=== PATIENT | male | born 1960 | race American Indian/Alaskan Native ===

== ENCOUNTER 2017-02-14 16:46 | Inpatient (IN) | payer MEDICAID ==
[2017-02-14 17:44] LABS: Hemoglobin 10.5 gm/dl (11.8-15.2); Mean Corpuscular HGB Conc 32 % (32-34); Mean Corpuscular Hemoglobin 27 pg (28-32); Mean Corpuscular Volume 85 fl (84-94); Platelet Count 262 K/mm3 (140-440); Red Blood Count 3.87 M/mm3 (3.65-5.03); Red Cell Distribution Width 16.7 % (13.2-15.2); White Blood Count 8.3 K/mm3 (4.5-11.0)
[2017-02-14 18:06] LABS: Albumin 3.4 g/dL (3.9-5); Albumin/Globulin Ratio 1.3 %; BUN/Creatinine Ratio 7.55; Bilirubin,Total 0.2 mg/dL (0.1-1.2); Calcium 9.3 mg/dL (8.4-10.2); Chloride 100.7 mmol/L (98-107)
[2017-02-14] MEDS ORDERED: APRESOLINE IV ONE (18:11)
[2017-02-14 18:29] LABS: Potassium 6.5 mmol/L (3.6-5.0)
[2017-02-14] MEDS ORDERED: D50W (25GM) IV ONE (18:31)
[2017-02-14] MEDS ORDERED: PROVENTIL IH ONE (18:31)
[2017-02-14] MEDS ORDERED: KIONEX PO ONE (18:31)
[2017-02-14] MEDS ORDERED: CALCIUM CHLORIDE IVP ONE (18:32)
--- NOTE | 2017-02-14 19:11 | Emergency Department Report ---
HPI - General Chief Complaint: High BP Time Seen by Provider: 02/14/17 17:48 - HPI HPI: This is a 56-year-old after medical male presents to the emergency department from a skilled nursing by EMS with the complaint of a possible clogged dialysis shunt, hypertension problems. The patient says that he is end-stage renal disease on Wednesday, and Wednesday. He says that he did receive dialysis on , 3 days ago, but also says that he was told dialysis shunt was clogged because they "had problems with it." He has a past medical history of asthma, diabetes, GERD, hypertension, end-stage renal disease on dialysis, seizures. He says that his primary care and nephrology is usually through the [facility]. He denies any chest pain or shortness of breath. He did not take anything and was not given anything for his symptoms prior to presentation. ED Past Medical Hx - Past Medical History Previous Medical History?: Yes Hx Hypertension: Yes Hx CVA: No Hx Heart Attack/AMI: No Hx Congestive Heart Failure: No Hx Diabetes: Yes Hx Deep Vein Thrombosis: No Hx GERD: Yes Hx Liver Disease: No Hx Renal Disease: Yes Hx of Cancer: No Hx Headaches / Migraines: No Hx Seizures: Yes (on meds) Hx Kidney Stones: Yes (ESRD) Hx Asthma: Yes Hx COPD: No Hx Dementia: No Hx HIV: No Additional medical history: Anemia - Surgical History Additional Surgical History: Left ABK , 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] - Social History Smoking Status: Current Some Day Smoker Substance Use Type: None - Medications Home Medications: Home Medications Medication Instructions Recorded Confirmed Last Taken Type Ascorbic Acid [Vitamin C] 500 mg PO BID 12/27/16 02/14/17 Unknown History AtorvaSTATin [Lipitor] 40 mg PO QHS 12/27/16 02/14/17 Unknown History Ferrous Sulfate [Feosol 325 MG tab] 325 mg PO BID 12/27/16 02/14/17 Unknown History Folic Acid [Folvite] 1 mg PO QDAY 12/27/16 02/14/17 Unknown History Insulin NPH, Human [NovoLIN N] 15 unit SQ QHS 12/27/16 02/14/17 Unknown History Mirtazapine 15 mg PO QHS 12/27/16 02/14/17 Unknown History Omeprazole Magnesium [PriLOSEC Otc] 20 mg PO QDAY 12/27/16 02/14/17 Unknown History Ondansetron [Zofran TAB] 4 mg PO Q4H PRN 12/27/16 02/14/17 Unknown History Sevelamer HCl [Renagel] 400 mg PO TIDWM 12/27/16 02/14/17 Unknown History Thiamine [Vitamin B-1] 100 mg PO QDAY 12/27/16 02/14/17 Unknown History Valsartan [Diovan] 40 mg PO QHS 12/27/16 02/14/17 Unknown History Vit B Cmplx 3/FA/Vit C/Biotin 1 each PO DAILY 12/27/16 02/14/17 Unknown History [Cheryl-Pricilla Rx Tablet] busPIRone [Buspar] 5 mg PO DAILY 12/27/16 02/14/17 Unknown History diphenhydrAMINE [Benadryl CAP] 25 mg PO DAILY PRN 12/27/16 02/14/17 Unknown History levETIRAcetam [Keppra TAB] 500 mg PO BID #60 tablet 01/11/17 02/14/17 Unknown Rx Pantoprazole [Protonix] 40 mg PO QDAY #30 tablet 02/04/17 02/14/17 Unknown Rx Acetaminophen 650 mg PO Q4H PRN 02/14/17 02/14/17 Unknown History Insulin Lispro [Humalog 100 12 units SQ AC 02/14/17 02/14/17 Unknown History UNITS/ML Kwikpen] Insulin Lispro [Humalog] 0 unit SQ BID 02/14/17 02/14/17 Unknown History ED Review of Systems ROS: Stated complaint: FISTULA BLOCKED Other details as noted in HPI Comment: All other systems reviewed and negative Constitutional: denies: chills, fever Eyes: denies: eye pain, eye discharge, vision change ENT: denies: ear pain, throat pain Respiratory: denies: cough, shortness of breath, wheezing Cardiovascular: denies: chest pain, palpitations Gastrointestinal: denies: abdominal pain, nausea, diarrhea Genitourinary: denies: urgency, dysuria Musculoskeletal: denies: back pain, joint swelling, arthralgia Skin: denies: rash, lesions Neurological: denies: headache, weakness, paresthesias Physical Exam - Physical Exam Vital Signs: Vital Signs 02/14/1702/14/17 17:06 17:43 Temperature 98.3 F Pulse Rate 87 Respiratory 24 24 Rate Blood Pressure 215/105 Blood Pressure 215/105 [Left] O2 Sat by Pulse 100 100 Oximetry Physical Exam: GENERAL: The patient is well-developed well-nourished. HEENT: Normocephalic. Atraumatic. Extraocular motions are intact. Patient has moist mucous membranes. NECK: Supple. Trachea is midline. CHEST/LUNGS: Clear to auscultation. There is no respiratory distress noted. HEART/CARDIOVASCULAR: Regular. There is no tachycardia. There is no gallop rub or murmur. ABDOMEN: Abdomen is soft, nontender. Patient has normal bowel sounds. There is no abdominal distention. SKIN: There is no rash. There is no edema. There is no diaphoresis. NEURO: The patient is awake, alert. The patient is cooperative. The patient has no focal neurologic deficits. The patient has normal speech. MUSCULOSKELETAL: There is no tenderness or deformity. Chronic left below knee amputation. There is no evidence of acute injury. There is a right upper extremity dialysis fistula that appears to have an audible hum and at least the proximal half has a palpable thrill. ED Course Vital Signs 02/14/17 06 17:06 17:43 Temperature 98.3 F Pulse Rate 87 Respiratory 24 24 Rate Blood Pressure 215/105 Blood Pressure 215/105 [Left] O2 Sat by Pulse 100 100 Oximetry - Consultations Consultation #1: Spoke with the community relations rep on-call, Dr. Merida, who agrees that the hyperkalemia can be treated medically and they will see the patient tomorrow for evaluation for dialysis. 02/14/17 19:22 Consultation #2: Spoke with the vascular surgeon on-call, Dr. العراقي, to make them aware of the patient's need for evaluation of a possible clogged dialysis fistula. 02/14/17 19:40 ED Medical Decision Making - Lab Data Result diagrams: 02/14/17 17:36 02/14/17 17:36 - EKG Data -: EKG Interpreted by [facility] EKG shows normal: sinus rhythm, axis (left axis deviation), intervals, QRS complexes, ST-T waves (T-wave inversions to aVL) Rate: normal - EKG Data When compared to previous EKG there are: previous EKG unavailable Interpretation: other (sinus rhythm, T-wave inversion to aVL, left axis deviation) - Medical Decision Making 56-year-old male presents to the emergency department with concern for clogged dialysis fistula that caused him to be unable to have dialysis yesterday. He has hypertensive issues and was found to have a hyperkalemia of 6.5. He was given the hyperkalemia cocktail including Kayexalate, insulin, glucose, albuterol and calcium. I spoke with nephrology who agreed that he could be treated medically tonight and they will assess him in the morning for dialysis. I also spoke with the vascular service so that they might be able to see the patient earlier than later tomorrow to evaluate the dialysis fistula so he can get dialysis at some point tomorrow. Patient was given hydralazine, then labetalol and his blood pressure came down to a more reasonable level. He has been accepted to the service of the admitting hospitalist, Dr. Lima. - Differential Diagnosis hyperkalemia, accelerated hypertension, CHF, Critical Care Time: No Critical care attestation.: If time is entered above; I have spent that time in minutes in the direct care of this critically ill patient, excluding procedure time. ED Disposition Clinical Impression: Accelerated hypertension, Hyperkalemia Dialysis AV fistula malfunction Qualifiers: Encounter type: initial encounter Qualified Code(s): T82.590A - Other mechanical complication of surgically created arteriovenous fistula, initial encounter Disposition: OP ADMITTED IP TO THIS HOSP Is pt being admited?: Yes Condition: Stable Instructions: Hypertension (ED) Referrals: PRIMARY CARE, [Primary Care Provider] - 3-5 Days
[2017-02-14] MEDS ORDERED: NORMODYNE IV ONE (19:36)
[2017-02-14] MEDS ORDERED: CALCIUM GLUCONATE 1,000 MG in NACL 0.9% 100 ML IV ONE (20:00)
[2017-02-14] MEDS ORDERED: TYLENOL PO PRN ×2 (22:39→22:45)
[2017-02-14] MEDS ORDERED: BENADRYL PO PRN (22:39)
[2017-02-14] MEDS ORDERED: ZOFRAN PO PRN (22:39)
--- NOTE | 2017-02-14 22:39 | Event Note ---
Date: 02/14/17 See H/p in reports HYPERKALEMIA AV SHUNT Malfunction ESRD HTN IDDM
[2017-02-14] MEDS ORDERED: DILAUDID IV PRN (22:45)
[2017-02-14] MEDS ORDERED: ZOFRAN IV PRN (22:45)
[2017-02-14] MEDS ORDERED: DULCOLAX PR PRN (22:45)
[2017-02-14] MEDS ORDERED: PERCOCET 5/325 PO PRN (22:45)
[2017-02-14] MEDS ORDERED: MILK OF MAGNESIA PO PRN (22:45)
[2017-02-14] MEDS ORDERED: NOVOLOG SUB-Q ONE ×2 (22:52→23:56)
[2017-02-14] MEDS ORDERED: HEPARIN ONE (23:22)
[2017-02-14] MEDS ORDERED: KEPPRA PO ONE (23:22)
[2017-02-14] MEDS: HEPARIN SUB-Q SCH (23:37)
[2017-02-14] MEDS: KEPPRA PO SCH (23:37)
[2017-02-15] MEDS ORDERED: APRESOLINE IV PRN ×2 (03:00→13:34)
[2017-02-15 05:59] LABS: Albumin 3.4 g/dL (3.9-5); Albumin/Globulin Ratio 1.3 %; BUN/Creatinine Ratio 7.23; Basophils % (Auto) 0.4 % (0.0-1.8); Bilirubin,Total 0.2 mg/dL (0.1-1.2); Calcium 9.3 mg/dL (8.4-10.2); Chloride 100.3 mmol/L (98-107); Eosinophils % (Auto) 2.5 % (0.0-4.3); Hematocrit 35.6 % (35.5-45.6); Mean Corpuscular HGB Conc 31 % (32-34); Mean Corpuscular Hemoglobin 27 pg (28-32); Mean Corpuscular Volume 86 fl (84-94); Platelet Count 282 K/mm3 (140-440); Potassium 5.6 mmol/L (3.6-5.0); Red Blood Count 4.12 M/mm3 (3.65-5.03); Red Cell Distribution Width 17.1 % (13.2-15.2); Total Protein 6.1 g/dL (6.3-8.2); White Blood Count 8.4 K/mm3 (4.5-11.0)
[2017-02-15] MEDS ORDERED: INSULIN LISPRO 12 UNIT SQ SCH (07:30)
[2017-02-15] MEDS: NOVOLOG SUB-Q SCH ×3 (08:58→16:30)
[2017-02-15] MEDS: KEPPRA PO SCH ×2 (09:00→22:31)
[2017-02-15] MEDS: VITAMIN B-1 PO SCH (09:00)
[2017-02-15] MEDS: RENVELA PO SCH ×3 (09:00→17:00)
[2017-02-15] MEDS: FEOSOL PO SCH ×2 (09:00→22:30)
[2017-02-15] MEDS: VITAMIN C PO SCH ×2 (09:01→22:31)
[2017-02-15] MEDS: HEPARIN SUB-Q SCH ×2 (09:01→22:33)
[2017-02-15] MEDS: PROTONIX PO SCH (09:01)
[2017-02-15] MEDS: BUSPAR PO SCH (09:01)
[2017-02-15] MEDS: FOLVITE PO SCH (09:01)
--- NOTE | 2017-02-15 09:49 | Admit Criteria Form ---
Admission Criteria Documentation: HYPONATREMIA; HYPERNATREMIA; HYPOKALEMIA; HYPERKALEMIA; HYPOCALCEMIA; HYPERCALCEMIA Clinical Indications for Inpatient Care (Place 'X' for any and all applicable criteria): Ongoing inpatient care may be indicated for ANY ONE of the following [G](1)(2)(3 )(5): [ ]I. Hyponatremia with ANY ONE of the following: [ ]a) Sodium less than 130 mEq/L (mmol/L) (new) (6)(22) [ ]b) Sodium less than 135 mEq/L (mmol/L) with ANY ONE of the following: [ ]i) Severe medical etiology requiring inpatient management (eg, heart failure, hypovolemia) [ ]ii) Altered mental status [ ]iii) Seizures [ ]II. Hypernatremia with ANY ONE of the following: [ ]a) Sodium greater than 155 mEq/L (mmol/L) [ ]b) Sodium greater than 150 mEq/L (mmol/L) with ANY ONE of the following: [ ] i) Altered mental status [ ]ii) Seizures [ ]iii) Severe medical etiology (eg, hypovolemia, diabetes insipidus) [ ]iv) Severe weakness [ ]v) Severe medical etiology (eg, hemolysis, infection, drug overdose) [ ]III. Hypokalemia with ANY ONE of the following: [ ]a) Potassium less than 2.5 mEq/L (mmol/L) despite outpatient and emergency treatment [ ]b) Potassium less than 3.0 mEq/L (mmol/L) with ANY ONE of the following: [ ]i) Weakness [ ]ii) Cardiac abnormality (eg, arrhythmia, conduction disturbance) [ ]iii) Cardiac ischemia [ ]iv) Ileus [ ]v) Ongoing medical cause requiring inpatient management. ( e.g., acute renal wasting, SIADH) [ ]vi) Other severe symptoms [X] IV. Hyperkalemia with ANY ONE of the following: [ ]a) Potassium greater than 6.5 mEq/L (mmol/L) [X]b) Potassium greater than 5 mEq/L (mmol/L) with ANY ONE of the following: [ ]i) Severe ECG findings [H] [X]ii) Acute worsening of renal failure (creatinine greater than 2.5 mg/dL (221 micromoles/L) or significant elevation for age and size) [ ] V. Hypocalcemia with ANY ONE of the following: [ ]a) Calcium less than 7 mg/dL (1.75 mmol/L) despite outpatient and emergency treatment(19) [ ]b) Calcium less than 8 mg/dL (2 mmol/L) with significant symptoms or findings; examples include: [ ]i) Cardiac abnormality (eg, arrhythmia or conduction disturbance) [ ]ii) Altered mental status [ ]iii) Seizures [ ]iv) Breathing difficulty [ ]v) Muscle spasms [ ]. Hypercalcemia with ANY ONE of the following: [ ]a) Calcium greater than 14 mg/dL (3.5 mmol/L) [ ]b) Calcium greater than 12 mg/dL (3 mmol/L) with ANY ONE of the following: [ ]i) Significant dehydration or hypovolemia as indicated by ANY ONE of the following(2): [ ]1. Clinically significant dehydration as indicated by ANY ONE of the following: [ ]A. Acute loss of weight from baseline (5% of body weight in adults, 9% in pediatric patients) [ ]B. Hemodynamic instability [ ]C. Acute renal failure [ ]D. Serum sodium greater than 150 mEq/L (mmol/L) [ ]2) Dehydration that is persistent indicated by ALL of the following: [ ]A. Oral rehydration therapy not tolerated or insufficient to adequately correct dehydration [ ]B. Appropriate intravenous treatment (eg, fluids ) does not readily correct dehydration ie, after 12 to 24 hours of treatment) [ ]ii) Significant symptoms or findings; examples include: [ ]1) Altered mental status [ ]2) Cardiac abnormality (eg, arrhythmia, conduction disturbance) [ ]3) Cardiac abnormality (eg, arrhythmia, conduction disturbance) The original [facility] content created by [employer] has been revised. The portions of the content which have been revised are identified through the use of italic text or in bold, and [facility] has neither reviewed nor approved the modified material. All other unmodified content is copyright [facility] [employer] Please see references footnoted in the original [facility] [employer] edition 2016 Admission Criteria Met: Yes
--- NOTE | 2017-02-15 10:19 | Consultation ---
History of Present Illness - Reason for Consult Consult date: 02/15/17 Malfunctioning dialysis access - History of Present Illness Patient is a 56-year-old male with a history of end-stage renal disease who presents with mal-functioning right lower arm fistula. Patient was unable to complete dialysis on secondary to "pulling clots". On examination, the fistula appears to have a thrill throughout its course. Dressings at cannulation sites are in place. Patient has no complaints of pain either at the fistula or distally. Past History Past Medical History: dialysis, ESRD Past Surgical History: Other (right forearm pippa) Social history: no significant social history Family history: no significant family history Medications and Allergies Allergies Allergy/AdvReac Type Severity Reaction Status Date / Time No Known Allergies Allergy Verified 02/02/17 03:46 Home Medications Medication Instructions Recorded Confirmed Last Taken Type Ascorbic Acid [Vitamin C] 500 mg PO BID 12/27/16 02/14/17 Unknown History AtorvaSTATin [Lipitor] 40 mg PO QHS 12/27/16 02/14/17 Unknown History Ferrous Sulfate [Feosol 325 MG tab] 325 mg PO BID 12/27/16 02/14/17 Unknown History Folic Acid [Folvite] 1 mg PO QDAY 12/27/16 02/14/17 Unknown History Insulin NPH, Human [NovoLIN N] 15 unit SQ QHS 12/27/16 02/14/17 Unknown History Mirtazapine 15 mg PO QHS 12/27/16 02/14/17 Unknown History Omeprazole Magnesium [PriLOSEC Otc] 20 mg PO QDAY 12/27/16 02/14/17 Unknown History Ondansetron [Zofran TAB] 4 mg PO Q4H PRN 12/27/16 02/14/17 Unknown History Sevelamer HCl [Renagel] 400 mg PO TIDWM 12/27/16 02/14/17 Unknown History Thiamine [Vitamin B-1] 100 mg PO QDAY 12/27/16 02/14/17 Unknown History Valsartan [Diovan] 40 mg PO QHS 12/27/16 02/14/17 Unknown History Vit B Cmplx 3/FA/Vit C/Biotin 1 each PO DAILY 12/27/16 02/14/17 Unknown History [Cheryl-Pricilla Rx Tablet] busPIRone [Buspar] 5 mg PO DAILY 12/27/16 02/14/17 Unknown History diphenhydrAMINE [Benadryl CAP] 25 mg PO DAILY PRN 12/27/16 02/14/17 Unknown History levETIRAcetam [Keppra TAB] 500 mg PO BID #60 tablet 01/11/17 02/14/17 Unknown Rx Pantoprazole [Protonix] 40 mg PO QDAY #30 tablet 02/04/17 02/14/17 Unknown Rx Acetaminophen 650 mg PO Q4H PRN 02/14/17 02/14/17 Unknown History Insulin Lispro [Humalog 100 12 units SQ AC 02/14/17 02/14/17 Unknown History UNITS/ML Kwikpen] Insulin Lispro [Humalog] 0 unit SQ BID 02/14/17 02/14/17 Unknown History Active Meds: Active Medications Acetaminophen (Tylenol) 650 mg PO Q4H PRN PRN Reason: Pain Ascorbic Acid (Vitamin C) 500 mg PO BID [facility] Last Admin: 02/15/17 09:01 Dose: 500 mg Atorvastatin Calcium (Lipitor) 40 mg PO QHS [facility] Bisacodyl (Dulcolax) 10 mg GA QDAY PRN PRN Reason: Constipation unrelieved by MOM Buspirone HCl (Buspar) 5 mg PO DAILY [facility] Last Admin: 02/15/17 09:01 Dose: 5 mg Diphenhydramine HCl (Benadryl) 25 mg PO DAILY PRN PRN Reason: Itching Ferrous Sulfate (Feosol) 325 mg PO BID [facility] Last Admin: 02/15/17 09:00 Dose: 325 mg Folic Acid (Folvite) 1 mg PO QDAY [facility] Last Admin: 02/15/17 09:01 Dose: 1 mg Heparin Sodium (Porcine) (Heparin) 5,000 unit SUB-Q Q12HR [facility] Last Admin: 02/15/17 09:01 Dose: 5,000 unit Hydralazine HCl (Apresoline) 5 mg IV Q6H PRN PRN Reason: Blood Pressure Last Admin: 02/15/17 03:25 Dose: 5 mg Hydromorphone HCl (Dilaudid) 0.5 mg IV Q3H PRN PRN Reason: Pain , Severe (7-10) Insulin Aspart (Novolog) 12 units SUB-Q AC [facility] Last Admin: 02/15/17 08:58 Dose: 12 units Insulin Human NPH (Novolin N) 15 unit SUB-Q QHS [facility] Levetiracetam (Keppra) 500 mg PO BID [facility] Last Admin: 02/15/17 09:00 Dose: 500 mg Magnesium Hydroxide (Milk Of Magnesia) 30 ml PO Q4H PRN PRN Reason: Constipation Mirtazapine (Remeron) 15 mg PO QHS [facility] Ondansetron HCl (Zofran) 4 mg PO Q4H PRN PRN Reason: Nausea Ondansetron HCl (Zofran) 4 mg IV Q8H PRN PRN Reason: N/V unrelieved by Reglan Oxycodone/Acetaminophen (Percocet 5/325) 1 tab PO Q6H PRN PRN Reason: Pain, Moderate (4-6) Pantoprazole Sodium (Protonix) 40 mg PO QDAY [facility] Last Admin: 02/15/17 09:01 Dose: 40 mg Sevelamer Carbonate (Renvela) 400 mg PO TIDWM [facility] Last Admin: 02/15/17 09:00 Dose: 400 mg Thiamine HCl (Vitamin B-1) 100 mg PO QDAY [facility] Last Admin: 02/15/17 09:00 Dose: 100 mg Valsartan (Diovan) 40 mg PO QHS [facility] Review of Systems All systems: negative Exam - Constitutional Vitals: Temp Pulse Resp BP Pulse Ox 99.5 F 88 18 190/82 99 02/15/17 07:00 02/15/17 08:36 02/15/17 08:36 02/15/17 07:00 02/15/17 07:00 General appearance: Present: no acute distress - EENT Eyes: Present: PERRL ENT: hearing intact - Neck Neck: Present: supple, normal ROM - Respiratory Respiratory effort: normal - Extremities Extremities: no ischemia, abnormal (per HPI) - Abdominal General gastrointestinal: Present: deferred - Rectal Rectal Exam: deferred - Psychiatric Psychiatric: cooperative Results - Labs CBC & Chem 7: 02/15/17 04:47 02/15/17 04:47 Labs: Abnormal lab results 02/14/17 02/15/17 02/15/17 Range/Units 23:41 04:47 04:47 Hgb 11.0 L (11.8-15.2) gm/dl MCH 27 L (28-32) pg MCHC 31 L (32-34) % RDW 17.1 H (13.2-15.2) % Seg Neutrophils % 72.1 H (40.0-70.0) % Sodium (137-145) mmol/L Potassium (3.6-5.0) mmol/L Carbon Dioxide (22-30) mmol/L BUN (9-20) mg/dL Creatinine (0.8-1.5) mg/dL Glucose (75-100) mg/dL POC Glucose 237 H (70-105) Hemoglobin A1c 9.3 H (4-6) % Total Protein (6.3-8.2) g/dL Albumin (3.9-5) g/dL 02/15/17 02/15/17 Range/Units 04:47 06:36 Hgb (11.8-15.2) gm/dl MCH (28-32) pg MCHC (32-34) % RDW (13.2-15.2) % Seg Neutrophils % (40.0-70.0) % Sodium 146 H (137-145) mmol/L Potassium 5.6 H (3.6-5.0) mmol/L Carbon Dioxide 21 L (22-30) mmol/L BUN 76 H (9-20) mg/dL Creatinine 10.5 H (0.8-1.5) mg/dL Glucose 248 H (75-100) mg/dL POC Glucose 261 H (70-105) Hemoglobin A1c (4-6) % Total Protein 6.1 L (6.3-8.2) g/dL Albumin 3.4 L (3.9-5) g/dL Assessment and Plan Patient has been made nothing by mouth and will be brought down for a fistulogram today.
--- NOTE | 2017-02-15 10:19 | Consultation ---
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 Patient is a poor historian, information obtained from previous documentation. He was last dialyzed 2 days ago, but unable to complete dialysis secondary to "pulling clots". His K was 6.5 on admission. He is scheduled to get fistulogram later today. Patient gets hemodialysis at [facility]. Past History Past Medical History: diabetes, dialysis, ESRD, hypertension, renal failure, seizures Past Surgical History: Other (right forearm pippa) Social history: no significant social history Family history: no significant family history Medications and Allergies Allergies Allergy/AdvReac Type Severity Reaction Status Date / Time No Known Allergies Allergy Verified 02/02/17 03:46 Home Medications Medication Instructions Recorded Confirmed Last Taken Type Ascorbic Acid [Vitamin C] 500 mg PO BID 12/27/16 02/14/17 Unknown History AtorvaSTATin [Lipitor] 40 mg PO QHS 12/27/16 02/14/17 Unknown History Ferrous Sulfate [Feosol 325 MG tab] 325 mg PO BID 12/27/16 02/14/17 Unknown History Folic Acid [Folvite] 1 mg PO QDAY 12/27/16 02/14/17 Unknown History Insulin NPH, Human [NovoLIN N] 15 unit SQ QHS 12/27/16 02/14/17 Unknown History Mirtazapine 15 mg PO QHS 12/27/16 02/14/17 Unknown History Omeprazole Magnesium [PriLOSEC Otc] 20 mg PO QDAY 12/27/16 02/14/17 Unknown History Ondansetron [Zofran TAB] 4 mg PO Q4H PRN 12/27/16 02/14/17 Unknown History Sevelamer HCl [Renagel] 400 mg PO TIDWM 12/27/16 02/14/17 Unknown History Thiamine [Vitamin B-1] 100 mg PO QDAY 12/27/16 02/14/17 Unknown History Vit B Cmplx 3/FA/Vit C/Biotin 1 each PO DAILY 12/27/16 02/14/17 Unknown History [Cheryl-Pricilla Rx Tablet] busPIRone [Buspar] 5 mg PO DAILY 12/27/16 02/14/17 Unknown History diphenhydrAMINE [Benadryl CAP] 25 mg PO DAILY PRN 12/27/16 02/14/17 Unknown History levETIRAcetam [Keppra TAB] 500 mg PO BID #60 tablet 01/11/17 02/14/17 Unknown Rx Pantoprazole [Protonix TAB] 40 mg PO QDAY #30 tablet 02/04/17 02/14/17 Unknown Rx Acetaminophen 650 mg PO Q4H PRN 02/14/17 02/14/17 Unknown History Insulin Lispro [HumaLOG VIAL] 0 unit SQ BID 02/14/17 02/14/17 Unknown History Insulin Lispro [Humalog 100 12 units SQ AC 02/14/17 02/14/17 Unknown History UNITS/ML Kwikpen] NIFEdipine XL [Procardia Xl] 60 mg PO Q12HR #60 tablet 02/16/17 Unknown Rx Active Meds: Active Medications Acetaminophen (Tylenol) 650 mg PO Q4H PRN PRN Reason: Pain Ascorbic Acid (Vitamin C) 500 mg PO BID [facility] Last Admin: 02/15/17 09:01 Dose: 500 mg Atorvastatin Calcium (Lipitor) 40 mg PO QHS [facility] Bisacodyl (Dulcolax) 10 mg IA QDAY PRN PRN Reason: Constipation unrelieved by MOM Buspirone HCl (Buspar) 5 mg PO DAILY [facility] Last Admin: 02/15/17 09:01 Dose: 5 mg Diphenhydramine HCl (Benadryl) 25 mg PO DAILY PRN PRN Reason: Itching Ferrous Sulfate (Feosol) 325 mg PO BID [facility] Last Admin: 02/15/17 09:00 Dose: 325 mg Folic Acid (Folvite) 1 mg PO QDAY [facility] Last Admin: 02/15/17 09:01 Dose: 1 mg Heparin Sodium (Porcine) (Heparin) 5,000 unit SUB-Q Q12HR [facility] Last Admin: 02/15/17 09:01 Dose: 5,000 unit Hydralazine HCl (Apresoline) 5 mg IV Q6H PRN PRN Reason: Blood Pressure Last Admin: 02/15/17 03:25 Dose: 5 mg Hydromorphone HCl (Dilaudid) 0.5 mg IV Q3H PRN PRN Reason: Pain , Severe (7-10) Insulin Aspart (Novolog) 12 units SUB-Q AC [facility] Last Admin: 02/15/17 08:58 Dose: 12 units Insulin Human NPH (Novolin N) 15 unit SUB-Q QHS [facility] Levetiracetam (Keppra) 500 mg PO BID [facility] Last Admin: 02/15/17 09:00 Dose: 500 mg Magnesium Hydroxide (Milk Of Magnesia) 30 ml PO Q4H PRN PRN Reason: Constipation Mirtazapine (Remeron) 15 mg PO QHS [facility] Ondansetron HCl (Zofran) 4 mg PO Q4H PRN PRN Reason: Nausea Ondansetron HCl (Zofran) 4 mg IV Q8H PRN PRN Reason: N/V unrelieved by Reglan Oxycodone/Acetaminophen (Percocet 5/325) 1 tab PO Q6H PRN PRN Reason: Pain, Moderate (4-6) Pantoprazole Sodium (Protonix) 40 mg PO QDAY [facility] Last Admin: 02/15/17 09:01 Dose: 40 mg Sevelamer Carbonate (Renvela) 400 mg PO TIDWM [facility] Last Admin: 02/15/17 09:00 Dose: 400 mg Thiamine HCl (Vitamin B-1) 100 mg PO QDAY [facility] Last Admin: 02/15/17 09:00 Dose: 100 mg Valsartan (Diovan) 40 mg PO QHS [facility] Review of Systems ROS unobtainable: due to mental status Exam - Vital Signs Vital signs: Vital Signs Pulse Ox 97 02/14/17 16:54 - General Appearance General appearance: well-developed, well-nourished, appears stated age, other ( no distress) EENT: ATNC, PERRL, mucous membranes moist, hearing intact, vision intact Neck: Present: neck supple Respiratory: Clear to Ascultation Heart: regular, S1S2, no murmurs Gastrointestinal: Present: normoactive bowel sounds. Absent: tenderness, distended Integumentary: no rash Neurologic: confused, other (left hemiparesis) Musculoskeletal: Present: other (left BKA, right FA AVF with good thrill) Results - Lab Results 02/15/17 04:47 02/16/17 10:31 Most recent lab results Calcium 9.3 mg/dL (8.4-10.2) 02/15/17 04:47 Assessment and Plan - Patient Problems (1) Hyperkalemia Current Visit: Yes Status: Acute Plan to address problem: Hemodialysis today. (2) ESRD on hemodialysis Current Visit: No Status: Chronic Plan to address problem: Plan to do hemodialysis today and continue three times a week. (3) Dialysis AV fistula malfunction Current Visit: Yes Status: Acute Qualifiers: Encounter type: initial encounter Qualified Code(s): T82.590A - Other mechanical complication of surgically created arteriovenous fistula, initial encounter Plan to address problem: Followed by Vascular. (4) Anemia of renal disease Current Visit: No Status: Chronic Plan to address problem: Epogen as needed. (5) Accelerated hypertension Current Visit: Yes Status: Chronic Plan to address problem: Monitor BP.
[2017-02-15] MEDS ORDERED: NACL 0.9% 100 ML IV PRN (10:43)
--- NOTE | 2017-02-15 12:00 | History and Physical Report ---
CHIEF COMPLAINT: Clogged dialysis shunt and high blood pressure. HISTORY OF PRESENT ILLNESS: A 56-year-old -[place] male who [facility] the Emergency Department [facility] by [facility] for clogged dialysis shunt and high blood pressure. The patient gets hemodialysis on Wednesday, and Wednesday. Last dialysis was on three days ago. The patient was told that he had problems with his dialysis shunt. The patient also has history of insulin-dependent diabetes, gastroesophageal reflux disease, hypertension, end-stage renal disease and seizure disorder. The patient's primary care and Nephrology service is through the [facility]. He denies any chest pain or shortness of breath. The patient was not given anything for his symptoms prior to presentation. Shortness of breath present, secondary to missing dialysis. No chest pain. PAST MEDICAL HISTORY: Significant for hypertension, gastroesophageal reflux disease, insulin-dependent diabetes, end-stage renal disease, seizures, kidney stones, asthma, COPD. Chronic anemia present. PAST SURGICAL HISTORY: Right AV fistula. Left above knee, AKA. SOCIAL HISTORY: Current everyday smoker. FAMILY HISTORY: Significant for hypertension. CURRENT MEDICATIONS: On the chart. Insulin 15 units a.c. with each meal. Protonix 40 mg once a day. Lipitor 40 mg once a day. Keppra 500 mg twice a day. REVIEW OF SYSTEMS: The patient's AV fistula has blocked and also shortness of breath. Otherwise, 14-point review of systems essentially negative. No chest pain. No black tarry stools. No seizures. No rashes. All 14-point review of systems was done. PHYSICAL EXAMINATION: GENERAL: Elderly male, cooperative during examination. VITAL SIGNS: Blood pressure was 215/105, temperature 98.3, pulse 87, respirations are 24. HEENT: Unremarkable. Pupils equal and reactive. NECK: Supple, no lymphadenopathy, no thyromegaly. LUNGS: Clear to auscultation and percussion. Good air entry. CARDIOVASCULAR: S1, S2 heard. No gallop, no murmur, no rub. Apical impulse in left fifth intercostal space and midclavicular line. ABDOMEN: Soft and benign. No hepatosplenomegaly. No guarding, no rigidity. Hernial orifices are normal. EXTREMITIES: Good pedal pulses. Small amount of thrill present in the AV fistula, the right upper extremity. LABORATORY DATA: Significant for potassium of 6.5, BUN and creatinine of 74/9.8, hemoglobin 10.5 and hematocrit of 33, glucose of 147. EKG shows left axis deviation, nonspecific ST-T wave changes and T wave inversions in aVL. Chest x-ray shows slight pulmonary vascular congestion. ASSESSMENT AND PLAN: 1. Hyperkalemia. The patient was given calcium gluconate, calcium chloride and insulin dextrose in the ER. Also, the patient was given 60 grams of Kayexalate. Recheck the potassium. Malfunctioning AV fistula. Vascular Surgery consult requested for possible thrombectomy. 2. End-stage renal disease, on hemodialysis. Nephrology, Dr. Marie consulted. 3. Hypertension. Continue antihypertensives. Valsartan 40 mg p.o. daily. 4. Hyperlipidemia. Continue atorvastatin 40 mg p.o. daily. 5. Gastroesophageal reflux disease. Continue Protonix 40 mg daily. 6. Anemia. Continue ferrous sulfate and Epogen. 7. Insulin-dependent diabetes. Continue on insulin 12 units before each meal and 15 units of Novolin at nighttime and coverage. Check hemoglobin A1c. 8. Seizure disorder. Continue Keppra 500 mg twice a day. 9. Deep venous thrombosis prophylaxis, heparin 5000 q.12. JOB# [id number] VSBjorn/NTS
[2017-02-15] MEDS ORDERED: HEPARIN/NS 5000 UNIT/500ML(CATH LAB) 500 ML IR ONE (13:04)
[2017-02-15] MEDS ORDERED: VERSED ONE (13:04)
[2017-02-15] MEDS ORDERED: ANCEF/STERILE WATER 2 GM/20 ML 2 GM/20 ML SYRINGE IV ONE (13:04)
[2017-02-15] MEDS ORDERED: HEPARIN 10,000 UNITS/10 ML ONE (13:04)
[2017-02-15] MEDS ORDERED: SUBLIMAZE ONE (13:04)
[2017-02-15] MEDS ORDERED: NACL 0.9% 250ML 250 ML ONE (13:05)
[2017-02-15] MEDS ORDERED: XYLOCAINE 2% INFILTRATI ONE (13:06)
--- NOTE | 2017-02-15 13:33 | Progress Note ---
Assessment and Plan Assessment and plan: 56-year-old male with a past medical history of end-stage renal disease who was unable to complete dialysis due to AV fistula malfunction. He is admitted for accelerated hypertension, AV fistula malfunction and hyperkalemia 1. AV fistula malfunction Vascular surgery consulted to perform a fistulogram 2. End-stage renal disease HD per nephrology 3. Hyperkalemia To be corrected with dialysis 4. Insulin-dependent type 2 diabetes Continue insulins 5. Accelerated Hypertension We'll give IV pushes of hydralazine and labetalol as needed, and optimize his oral medications Valsartan discontinued due to persistent hyperkalemia History Interval history: Patient is demented, he has no complaints Hospitalist Physical - Physical exam Narrative exam: General: Patient appears well in no distress HEENT: MMM, EOMI cardiac: S1-S2 heard lungs: clear to auscultation, abdomen: soft, nontender, nondistended bowel sounds positive extremities: no edema clubbing or cyanosis Skin: no rash or lesion Neuro: no focal deficit Psych: Pleasantly demented - Constitutional Vitals: Temp Pulse Resp BP Pulse Ox 99.5 F 88 18 190/82 99 02/15/17 07:00 02/15/17 08:36 02/15/17 08:36 02/15/17 07:00 02/15/17 07:00 General appearance: Present: no acute distress Results - Labs CBC & Chem 7: 02/15/17 04:47 02/16/17 10:31 Labs: Laboratory Last Values WBC 8.4 K/mm3 (4.5-11.0) 02/15/17 04:47 RBC 4.12 M/mm3 (3.65-5.03) 02/15/17 04:47 Hgb 11.0 gm/dl (11.8-15.2) L 02/15/17 04:47 Hct 35.6 % (35.5-45.6) 02/15/17 04:47 MCV 86 fl (84-94) 02/15/17 04:47 MCH 27 pg (28-32) L 02/15/17 04:47 MCHC 31 % (32-34) L 02/15/17 04:47 RDW 17.1 % (13.2-15.2) H 02/15/17 04:47 Plt Count 282 K/mm3 (140-440) 02/15/17 04:47 Lymph % (Auto) 18.1 % (13.4-35.0) 02/15/17 04:47 Floyd % (Auto) 6.9 % (0.0-7.3) 02/15/17 04:47 Eos % (Auto) 2.5 % (0.0-4.3) 02/15/17 04:47 Baso % (Auto) 0.4 % (0.0-1.8) 02/15/17 04:47 Lymph # 1.5 K/mm3 (1.2-5.4) 02/15/17 04:47 Floyd # 0.6 K/mm3 (0.0-0.8) 02/15/17 04:47 Eos # 0.2 K/mm3 (0.0-0.4) 02/15/17 04:47 Baso # 0.0 K/mm3 (0.0-0.1) 02/15/17 04:47 Seg Neutrophils % 72.1 % (40.0-70.0) H 02/15/17 04:47 Seg Neutrophils # 6.1 K/mm3 (1.8-7.7) 02/15/17 04:47 Sodium 146 mmol/L (137-145) H 02/15/17 04:47 Potassium 5.6 mmol/L (3.6-5.0) H 02/15/17 04:47 Chloride 100.3 mmol/L (98-107) 02/15/17 04:47 Carbon Dioxide 21 mmol/L (22-30) L 02/15/17 04:47 Anion Gap 30 mmol/L 02/15/17 04:47 BUN 76 mg/dL (9-20) H 02/15/17 04:47 Creatinine 10.5 mg/dL (0.8-1.5) H 02/15/17 04:47 Estimated GFR 6 ml/min 02/15/17 04:47 BUN/Creatinine Ratio 7.23 % 02/15/17 04:47 Glucose 248 mg/dL (75-100) H 02/15/17 04:47 POC Glucose 142 (70-105) H 02/15/17 12:08 Hemoglobin A1c 9.3 % (4-6) H 02/15/17 04:47 Calcium 9.3 mg/dL (8.4-10.2) 02/15/17 04:47 Total Bilirubin 0.20 mg/dL (0.1-1.2) 02/15/17 04:47 AST 13 units/L (5-40) 02/15/17 04:47 ALT 13 units/L (7-56) 02/15/17 04:47 Alkaline Phosphatase 75 units/L (35-129) 02/15/17 04:47 Total Protein 6.1 g/dL (6.3-8.2) L 02/15/17 04:47 Albumin 3.4 g/dL (3.9-5) L 02/15/17 04:47 Albumin/Globulin Ratio 1.3 % 02/15/17 04:47
[2017-02-15] MEDS ORDERED: NORMODYNE IV PRN (13:34)
--- NOTE | 2017-02-15 13:46 | Operative Report ---
Operative Report Operative Report: EXAM: LEFT UPPER EXTREMITY FISTULOGRAM CLINICAL INDICATION: PATIENT WITH END-STAGE RENAL DISEASE ON HEMODIALYSIS, CLOTS WERE BEING PULLED WALL PATIENT WAS AT OUTPATIENT DIALYSIS DATE: 02/15/2017 PROCEDURE: Following an explanation of the risks, benefits and alternatives; written informed consent was obtained. The patient was brought to the injury graphic suite and placed in supine position on the examination table. Initial evaluation of the fistula demonstrated a thrill throughout the fistula. The patient's left forearm was prepped and draped in the usual sterile fashion. 1% lidocaine was used for anesthesia. The fistula was cannulated towards the venous outflow using a 7 cm 21-gauge needle. A 0.018 guidewire was advanced centrally. There was some discomfort with cannulation. The inner portion of a micro-sheath was then placed over the guidewire and the guidewire removed. Fluoroscopic imaging demonstrated a Sadiq fistula with a stent at the juxta anastomotic region. Imaging was then obtained through the micro-sheath from the access site to the central veins. There is no stenosis, occlusion or thrombus noted within the fistula. Occlusion of the venous outflow followed by contrast injection demonstrated adequate arterial inflow. The micro-sheath was removed and hemostasis achieved using 4-0 Vicryl suture and Dermabond. A sterile dressing was then applied. The patient tolerated the procedure well. There were no immediate post procedure complications. Conscious sedation was performed under the guidance of radiologic nursing. Continuous cardiopulmonary monitoring was utilized. IMPRESSION: 1) Left upper extremity fistulogram of a Sadiq fistula demonstrating a previously placed stent just distal to the arterial venous anastomosis. Just distal to the stent there is dilation of the fistula however, there are no flow limiting lesions or thrombus within the fistula.
[2017-02-15] MEDS: PROCARDIA XL PO SCH ×2 (14:27→22:38)
--- NOTE | 2017-02-15 16:00 | Progress Note ---
Assessment and Plan - Patient Problems (1) Hyperkalemia Current Visit: Yes Status: Acute Plan to address problem: Patient is on hemodialysis. (2) ESRD on hemodialysis Current Visit: No Status: Chronic Plan to address problem: Continue hemodialysis as planned. Subjective Date of service: 02/15/17 Interval history: Patient was seen and examined while on hemodialysis. Objective - Vital Signs Vital signs: Vital Signs - 12hr 02/15/17 02/15/17 02/15/17 04:30 07:00 08:36 Temperature 98.3 F 99.5 F Pulse Rate [ 103 H 100 H 88 Left] Respiratory 20 19 18 Rate Blood Pressure 236/112 190/82 [Left Arm] O2 Sat by Pulse 98 99 Oximetry - General Appearance General appearance: well-developed, well-nourished, appears stated age, other ( no distress) EENT: ATNC, PERRL, mucous membranes moist, hearing intact, vision intact Neck: supple Respiratory: Present: Clear to Ascultation Cardiology: regular, S1S2, no murmurs Gastrointestinal: normoactive bowel sounds Integumentary: no rash Neurologic: confused, other (left hemiparesis) Musculoskeletal: other (left BKA, right FA AVF) Psychiatric: mood/affect appropriate, cooperative - Lab 02/15/17 04:47 02/16/17 10:31 Most recent lab results Calcium 9.3 mg/dL (8.4-10.2) 02/15/17 04:47
[2017-02-15] MEDS ORDERED: NACL 0.9 (PRIMING MACHINE ONLY DIALYSIS) MC ONE (16:15)
[2017-02-15] MEDS ORDERED: DIOVAN PO SCH (22:00)
[2017-02-15] MEDS ORDERED: REMERON PO SCH (22:00)
[2017-02-16] MEDS: NOVOLOG SUB-Q SCH (07:14)
--- NOTE | 2017-02-16 07:41 | Discharge Summary ---
Providers - Providers Date of Admission: 02/14/17 22:45 Attending physician: GAIL AQUINO MD 02/14/17 22:48 Consult to Physician [CONS] Routine Consulting Provider: FELIZ ELLISON Reason For Exam: ESRD Place consult to:: Notified:: Phone number called:: [phone] Was contact made?: Yes If yes, spoke with:: Time called:: 09:28 Primary care physician: CLOTH BOLT BANDER Hospitalization Condition: Stable Hospital course: 56-year-old male with a past medical history of end-stage renal disease who was unable to complete dialysis due to AV fistula malfunction. He is admitted for accelerated hypertension, AV fistula malfunction and hyperkalemia 1. AV fistula malfunction Vascular surgery consulted to perform a fistulogram, fistulogram revealed no obstruction or clot, and he went on to receive hemodialysis without incident 2. End-stage renal disease Patient received hemodialysis stated above 3. Hyperkalemia This corrected after dialysis 4. Insulin-dependent type 2 diabetes He was continued on insulin along with sliding scale insulin 5. Accelerated Hypertension He was initially treated with IV pushes of blood pressure medications, valsartan was discontinued due to persistent hyperkalemia His medications were optimized prior to discharge. His blood pressure improved Disposition: DC/[place]-03 [facility] Time spent for discharge: 35 minutes Core Measure Documentation - Palliative Care Palliative Care/ Comfort Measures: Not Applicable - Core Measures Any of the following diagnoses?: none Exam - Constitutional Vitals: Temp Pulse Resp BP Pulse Ox 98.1 F 94 H 18 186/78 100 02/16/17 00:57 02/16/17 00:57 02/16/17 00:57 02/16/17 00:57 02/16/17 00:57 General appearance: Present: no acute distress, well-nourished - EENT Eyes: Present: PERRL ENT: hearing intact, clear oral mucosa - Neck Neck: Present: supple, normal ROM - Respiratory Respiratory effort: normal Respiratory: bilateral: CTA - Cardiovascular Heart Sounds: Present: S1 & S2. Absent: rub, click - Extremities Extremities: pulses symmetrical, No edema Peripheral Pulses: within normal limits - Abdominal General gastrointestinal: Present: soft, non-tender, non-distended, normal bowel sounds Male genitourinary: Present: normal - Integumentary Integumentary: Present: clear, warm, dry - Musculoskeletal Musculoskeletal: gait normal, strength equal bilaterally - Psychiatric Psychiatric: appropriate mood/affect, no intact judgment & insight - Neurologic Neurologic: CNII-XII intact, moves all extremities Plan Follow up with: PRIMARY CARE, [Primary Care Provider] - 3-5 Days Prescriptions: NIFEdipine XL [Procardia Xl] 60 mg PO Q12HR #60 tablet
--- NOTE | 2017-02-16 08:49 | Progress Note ---
Assessment and Plan - Patient Problems (1) ESRD on hemodialysis Current Visit: No Status: Chronic Plan to address problem: Continue hemodialysis three times a week. (2) Hyperkalemia Current Visit: Yes Status: Acute Plan to address problem: K level is normal today. (3) Dialysis AV fistula malfunction Current Visit: Yes Status: Acute Qualifiers: Encounter type: initial encounter Qualified Code(s): T82.590A - Other mechanical complication of surgically created arteriovenous fistula, initial encounter Plan to address problem: S/p fistulogram yesterday. Followed by Vascular. (4) Accelerated hypertension Current Visit: Yes Status: Chronic Plan to address problem: BP is better. (5) Anemia of renal disease Current Visit: No Status: Chronic Plan to address problem: Epogen as needed. Subjective Date of service: 02/16/17 Interval history: Patient was seen and examined at the bedside. He is doing ok. Objective - Vital Signs Vital signs: Vital Signs - 12hr 02/15/17 02/16/17 22:00 00:57 Temperature 98.1 F Pulse Rate [ 70 94 H Left] Respiratory 20 18 Rate Blood Pressure 186/78 [Left Arm] O2 Sat by Pulse 100 Oximetry - General Appearance General appearance: well-developed, well-nourished, appears stated age, other ( no distress) EENT: ATNC, PERRL, mucous membranes moist, hearing intact, vision intact Neck: supple Respiratory: Present: Clear to Ascultation Cardiology: regular, S1S2, no murmurs Gastrointestinal: normoactive bowel sounds, no tenderness, no distended Integumentary: no rash Neurologic: confused, other (left hemiparesis) Musculoskeletal: other (left BKA, right FA AVF) Psychiatric: mood/affect appropriate, cooperative - Lab 02/15/17 04:47 02/16/17 10:31 Most recent lab results Calcium 9.3 mg/dL (8.4-10.2) 02/15/17 04:47
[2017-02-16] MEDS: FOLVITE PO SCH (09:19)
[2017-02-16] MEDS: PROTONIX PO SCH (09:19)
[2017-02-16] MEDS: FEOSOL PO SCH (09:19)
[2017-02-16] MEDS: RENVELA PO SCH (09:19)
[2017-02-16] MEDS: VITAMIN C PO SCH (09:20)
[2017-02-16] MEDS: HEPARIN SUB-Q SCH (09:20)
[2017-02-16] MEDS: PROCARDIA XL PO SCH (09:20)
[2017-02-16] MEDS: KEPPRA PO SCH (09:20)
[2017-02-16] MEDS: VITAMIN B-1 PO SCH (09:20)
[2017-02-16] MEDS: BUSPAR PO SCH (09:21)
[2017-02-16 11:11] LABS: BUN/Creatinine Ratio 5.27; Calcium 8.6 mg/dL (8.4-10.2); Chloride 97.6 mmol/L (98-107); Potassium 4.9 mmol/L (3.6-5.0)
[2017-02-16 13:29] VITALS: BP 130/66
== END 2017-02-16 13:30 | DRG 314 ==
LOC: ED 16:46 → 3A 22:45
PROVIDERS: ADMIT Internal Medicine; ATTEND Internal Medicine
PROC: B51W1ZZ Fluoroscopy of Dialysis Shunt/Fistula using Low Osmolar Contrast (ICD-10-PCS; principal; 2017-02-15)
PROC: 5A1D00Z (ICD-10-PCS; 2017-02-15)
DX: T82.590A Other mechanical complication of surgically created arteriovenous fistula, initial encounter (principal); N18.6 End stage renal disease; E87.5 Hyperkalemia; E78.5 Hyperlipidemia, unspecified; K21.9 Gastro-esophageal reflux disease without esophagitis; G40.909 Epilepsy, unspecified, not intractable, without status epilepticus; I12.0 Hypertensive chronic kidney disease with stage 5 chronic kidney disease or end stage renal disease; Y84.1 Kidney dialysis as the cause of abnormal reaction of the patient, or of later complication, without mention of misadventure at the time of the procedure; E11.22 Type 2 diabetes mellitus with diabetic chronic kidney disease; F17.200 Nicotine dependence, unspecified, uncomplicated; J44.9 Chronic obstructive pulmonary disease, unspecified; D53.9 Nutritional anemia, unspecified; D63.1 Anemia in chronic kidney disease; Z99.2 Dependence on renal dialysis; Z79.4 Long term (current) use of insulin; Y92.89 Other specified places as the place of occurrence of the external cause; Z87.442 Personal history of urinary calculi; Z89.612 Acquired absence of left leg above knee; Z82.49 Family history of ischemic heart disease and other diseases of the circulatory system
CPT/HCPCS: 36415; 36901; 80048; 80053; 82962; 83036; 85025; 85027; 93005; 93010; 94640; 99285; A9270-GY; C1769; J0360; J0610; J0690; J1644; J1815; J2250; J3010; J7030; J7050; Q9967

== ENCOUNTER 2017-04-21 11:56 | Emergency (ER) | payer MEDICAID ==
--- NOTE | 2017-04-21 13:49 | Emergency Department Report ---
HPI - General Chief Complaint: Medical Clearance Time Seen by Provider: 04/21/17 12:50 - HPI HPI: This is a 56-year-old Afro-Malaysian male presents to the emergency department with complaint of accidentally pulling out his left neck vascular catheter/ dialysis access while sleeping last night. The patient is end-stage renal disease on hemodialysis on Wednesday, and Wednesday. He did complete dialysis yesterday but accidentally pulled out the access port this evening. He denies any current bleeding. His commercial director is Dr. Galo Segundo. He denies any vomiting, abdominal pain, chest pain, shortness of breath or fever. ED Past Medical Hx - Past Medical History Hx Hypertension: Yes Hx CVA: No Hx Heart Attack/AMI: No Hx Congestive Heart Failure: No Hx Diabetes: Yes Hx Deep Vein Thrombosis: No Hx GERD: Yes Hx Liver Disease: No Hx Renal Disease: Yes Hx Headaches / Migraines: No Hx Seizures: Yes (on meds) Hx Kidney Stones: Yes (ESRD) Hx Asthma: Yes Hx COPD: No Hx Dementia: Yes Hx HIV: No Additional medical history: Anemia - Surgical History Additional Surgical History: Left ABK , 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] - Social History Smoking Status: Unknown if ever smoked Substance Use Type: None - Medications Home Medications: Home Medications Medication Instructions Recorded Confirmed Last Taken Type Ascorbic Acid [Vitamin C] 500 mg PO BID 12/27/16 02/14/17 Unknown History AtorvaSTATin [Lipitor] 40 mg PO QHS 12/27/16 02/14/17 Unknown History Ferrous Sulfate [Feosol 325 MG tab] 325 mg PO BID 12/27/16 02/14/17 Unknown History Folic Acid [Folvite] 1 mg PO QDAY 12/27/16 02/14/17 Unknown History Insulin NPH, Human [NovoLIN N] 15 unit SQ QHS 12/27/16 02/14/17 Unknown History Mirtazapine 15 mg PO QHS 12/27/16 02/14/17 Unknown History Omeprazole Magnesium [PriLOSEC Otc] 20 mg PO QDAY 12/27/16 02/14/17 Unknown History Ondansetron [Zofran TAB] 4 mg PO Q4H PRN 12/27/16 02/14/17 Unknown History Sevelamer HCl [Renagel] 400 mg PO TIDWM 12/27/16 02/14/17 Unknown History Thiamine [Vitamin B-1] 100 mg PO QDAY 12/27/16 02/14/17 Unknown History Vit B Cmplx 3/FA/Vit C/Biotin 1 each PO DAILY 12/27/16 02/14/17 Unknown History [Cheryl-Pricilla Rx Tablet] busPIRone [Buspar] 5 mg PO DAILY 12/27/16 02/14/17 Unknown History diphenhydrAMINE [Benadryl CAP] 25 mg PO DAILY PRN 12/27/16 02/14/17 Unknown History levETIRAcetam [Keppra TAB] 500 mg PO BID #60 tablet 01/11/17 02/14/17 Unknown Rx Pantoprazole [Protonix TAB] 40 mg PO QDAY #30 tablet 02/04/17 02/14/17 Unknown Rx Acetaminophen 650 mg PO Q4H PRN 02/14/17 02/14/17 Unknown History Insulin Lispro [HumaLOG VIAL] 0 unit SQ BID 02/14/17 02/14/17 Unknown History Insulin Lispro [Humalog 100 12 units SQ AC 02/14/17 02/14/17 Unknown History UNITS/ML Kwikpen] NIFEdipine XL [Procardia Xl] 60 mg PO Q12HR #60 tablet 02/16/17 Unknown Rx ED Review of Systems ROS: Stated complaint: DIALYSIS PORT PULLED OUT Other details as noted in HPI Comment: All other systems reviewed and negative Constitutional: denies: chills, fever Eyes: denies: eye pain, eye discharge, vision change ENT: denies: ear pain, throat pain Respiratory: denies: cough, shortness of breath, wheezing Cardiovascular: denies: chest pain, palpitations Gastrointestinal: denies: abdominal pain, nausea, diarrhea Genitourinary: denies: urgency, dysuria Musculoskeletal: denies: back pain, joint swelling, arthralgia Skin: denies: rash, lesions Neurological: denies: headache, weakness, paresthesias Physical Exam - Physical Exam Vital Signs: Vital Signs 04/21/17 04/21/17 12:56 13:18 Temperature 98.3 F 97.9 F Pulse Rate 88 70 Respiratory 18 Rate Blood Pressure 153/74 Blood Pressure 105/51 [Right] O2 Sat by Pulse 98 100 Oximetry Physical Exam: GENERAL: The patient is well-developed well-nourished. HEENT: Normocephalic. Atraumatic. Extraocular motions are intact. Patient has moist mucous membranes. Pupils equal reactive to light bilaterally. NECK: Supple. Trachea is midline. There is an area to the left side of the neck were the Vas-Cath appears to have been removed but there is no bleeding or surrounding erythema. CHEST/LUNGS: Clear to auscultation. There is no respiratory distress noted. HEART/CARDIOVASCULAR: Regular. There is no tachycardia. There is no gallop rub or murmur. ABDOMEN: Abdomen is soft, nontender. Patient has normal bowel sounds. There is no abdominal distention. SKIN: Skin is warm and dry. NEURO: The patient is awake, alert, and oriented. The patient is cooperative. The patient has no focal neurologic deficits. The patient has normal speech and gait. MUSCULOSKELETAL: There is no tenderness. There is a right upper extremity dialysis fistula that appears to have a thrill and home and appears to be patent. There is no evidence of acute injury. ED Course Vital Signs 04/21/17 04/21/17 12:56 13:18 Temperature 98.3 F 97.9 F Pulse Rate 88 70 Respiratory 18 Rate Blood Pressure 153/74 Blood Pressure 105/51 [Right] O2 Sat by Pulse 98 100 Oximetry - Consultations Consultation #1: I spoke to the patient's commercial director, Dr. Galo Segundo, who says that as long as the labs are unremarkable and the patient is stable that he can follow up early tomorrow for his dialysis appointment and they will assess him and if necessary sent him to an access Center. 04/21/17 13:49 ED Medical Decision Making - Lab Data Result diagrams: 04/21/17 14:06 04/21/17 14:06 - Medical Decision Making 56-year-old male presents with a complaint of having his left neck vas cath accidentally pulled out while he was sleeping. It appears that he has a patent right upper extremity dialysis fistula but the patient says that he has a problem with that one secondary to clots. Spoke with his commercial director who says that he can show up early to dialysis and if necessary they will refer him to an access Center. He says that he is safe for discharge home if his labs are okay. There is no hyperkalemia but the patient has hyperglycemia. He does not appear to have any obvious DKA. He was given subcutaneous and IV insulin and his blood sugars come down to a much more reasonable level. The patient will be discharged home to follow up early for his dialysis appointment. He will return to the ER with any worsening of symptoms or any acute distress. Critical Care Time: No Critical care attestation.: If time is entered above; I have spent that time in minutes in the direct care of this critically ill patient, excluding procedure time. ED Disposition Clinical Impression: ESRD on hemodialysis, Hyperglycemia, Complication, dialysis catheter clot or failure Hypertension Qualifiers: Hypertension type: unspecified Qualified Code(s): I10 - Essential (primary) hypertension Disposition: DC- TO HOME OR SELFCARE Is pt being admited?: No Condition: Stable Instructions: Hypertension (ED), End-Stage Kidney Disease (ED) Additional Instructions: Please make sure that Mr. Soto shows up about 1 hour early for his dialysis appointment tomorrow. The dialysis center should be able to assess his right upper extremity fistula to see if it is patent and usable or whether or not he needs to be referred to an access Center, per his commercial director, Dr. Segundo. Referrals: PRIMARY CAREMD [Primary Care Provider] - 3-5 Days Time of Disposition: 18:29
[2017-04-21 14:24] LABS: Basophils % (Auto) 0.9 % (0.0-1.8); Eosinophils % (Auto) 3.6 % (0.0-4.3); Hematocrit 27.6 % (35.5-45.6); Hemoglobin 8.8 gm/dl (11.8-15.2); Mean Corpuscular HGB Conc 32 % (32-34); Mean Corpuscular Hemoglobin 28 pg (28-32); Mean Corpuscular Volume 87 fl (84-94); Platelet Count 207 K/mm3 (140-440); Red Blood Count 3.17 M/mm3 (3.65-5.03); Red Cell Distribution Width 16.5 % (13.2-15.2); White Blood Count 8.2 K/mm3 (4.5-11.0)
[2017-04-21 14:35] LABS: BUN/Creatinine Ratio 5.18; Calcium 8.9 mg/dL (8.4-10.2); Chloride 91.5 mmol/L (98-107); Potassium 4.5 mmol/L (3.6-5.0)
[2017-04-21] MEDS ORDERED: CATAPRES PO ONE (18:27)
[2017-04-21 18:49] VITALS: BP 155/78
== END 2017-04-21 19:47 | disposition home or self-care (01) ==
LOC: ED 11:56
DX: T82.41XA Breakdown (mechanical) of vascular dialysis catheter, initial encounter (principal); E11.22 Type 2 diabetes mellitus with diabetic chronic kidney disease; I12.0 Hypertensive chronic kidney disease with stage 5 chronic kidney disease or end stage renal disease; N18.6 End stage renal disease; Z99.2 Dependence on renal dialysis; K21.9 Gastro-esophageal reflux disease without esophagitis; J45.909 Unspecified asthma, uncomplicated; R56.9 Unspecified convulsions; D64.9 Anemia, unspecified; F03.90 Unspecified dementia, unspecified severity, without behavioral disturbance, psychotic disturbance, mood disturbance, and anxiety; Z79.4 Long term (current) use of insulin; E11.65 Type 2 diabetes mellitus with hyperglycemia
CPT/HCPCS: 36415; 80048; 82962; 85025; 96372; 96374; J1815

== ENCOUNTER 2018-11-10 08:54 | Inpatient (IN) | payer MEDICAID ==
[2018-11-10] MEDS ORDERED: D50W (25GM) Syringe IV ONE ×2 (09:00→09:05)
--- NOTE | 2018-11-10 09:21 | Emergency Department Report ---
ED General Adult HPI - General Stated complaint: HYPOGLYCEMIA Time Seen by Provider: 11/10/18 09:01 - History of Present Illness Initial comments: 58-year-old intermediate resident who was became poorly responsive this morning. According to the available information he was given his insulin but his sugar level was not checked prior to this event. He has end-stage renal disease and today is his dialysis today. He was found to be hypoglycemic. EMS was summoned and he was sent to the emergency department. He was found to have a glucose in the 20s. However EMS was unable to initiate an IV in route to the hospital. Upon his arrival nursery immediately started an IV line and he was given D50. He did respond favorably. Patient does state he has left-sided weakness at his baseline. -: Gradual Associated Symptoms: denies other symptoms - Related Data Home Medications Medication Instructions Recorded Confirmed Last Taken Ascorbic Acid [Vitamin C] 500 mg PO BID 12/27/16 02/14/17 Unknown AtorvaSTATin [Lipitor] 40 mg PO QHS 12/27/16 02/14/17 Unknown Ferrous Sulfate [Feosol 325 MG tab] 325 mg PO BID 12/27/16 02/14/17 Unknown Folic Acid [Folvite] 1 mg PO QDAY 12/27/16 02/14/17 Unknown Insulin NPH, Human [NovoLIN N] 15 unit SQ QHS 12/27/16 02/14/17 Unknown Mirtazapine 15 mg PO QHS 12/27/16 02/14/17 Unknown Omeprazole Magnesium [PriLOSEC Otc] 20 mg PO QDAY 12/27/16 02/14/17 Unknown Ondansetron [Zofran TAB] 4 mg PO Q4H PRN 12/27/16 02/14/17 Unknown Sevelamer HCl [Renagel] 400 mg PO TIDWM 12/27/16 02/14/17 Unknown Thiamine [Vitamin B-1] 100 mg PO QDAY 12/27/16 02/14/17 Unknown Vit B Comp No.3/Folic/C/Biotin 1 each PO DAILY 12/27/16 02/14/17 Unknown [Cheryl-Pricilla Rx Tablet] busPIRone [Buspar] 5 mg PO DAILY 12/27/16 02/14/17 Unknown diphenhydrAMINE [Benadryl CAP] 25 mg PO DAILY PRN 12/27/16 02/14/17 Unknown Acetaminophen 650 mg PO Q4H PRN 02/14/17 02/14/17 Unknown Insulin Lispro [HumaLOG VIAL] 0 unit SQ BID 02/14/17 02/14/17 Unknown Insulin Lispro [Humalog 100 12 units SQ AC 02/14/17 02/14/17 Unknown UNITS/ML Kwikpen] Previous Rx's Medication Instructions Recorded Last Taken Type levETIRAcetam [Keppra TAB] 500 mg PO BID #60 tablet 01/11/17 Unknown Rx Pantoprazole [Protonix TAB] 40 mg PO QDAY #30 tablet 02/04/17 Unknown Rx NIFEdipine XL [Procardia Xl] 60 mg PO Q12HR #60 tablet 02/16/17 Unknown Rx Allergies Allergy/AdvReac Type Severity Reaction Status Date / Time Penicillins Allergy Unknown Verified 11/10/18 09:47 ED Review of Systems ROS: Stated complaint: HYPOGLYCEMIA Other details as noted in HPI Comment: Unobtainable due to pts medical conditions ED Past Medical Hx - Past Medical History Hx Hypertension: Yes Hx CVA: No Hx Heart Attack/AMI: No Hx Congestive Heart Failure: No Hx Diabetes: Yes Hx Deep Vein Thrombosis: No Hx GERD: Yes Hx Liver Disease: No Hx Renal Disease: Yes Hx Headaches / Migraines: No Hx Seizures: Yes (on meds) Hx Kidney Stones: Yes (ESRD) Hx Asthma: Yes Hx COPD: No Hx Dementia: Yes Hx HIV: No Additional medical history: Anemia - Surgical History Additional Surgical History: Left ABK , 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] - Social History Smoking Status: Unknown if ever smoked Substance Use Type: None - Medications Home Medications: Home Medications Medication Instructions Recorded Confirmed Last Taken Type Ascorbic Acid [Vitamin C] 500 mg PO BID 12/27/16 02/14/17 Unknown History AtorvaSTATin [Lipitor] 40 mg PO QHS 12/27/16 02/14/17 Unknown History Ferrous Sulfate [Feosol 325 MG tab] 325 mg PO BID 12/27/16 02/14/17 Unknown History Folic Acid [Folvite] 1 mg PO QDAY 12/27/16 02/14/17 Unknown History Insulin NPH, Human [NovoLIN N] 15 unit SQ QHS 12/27/16 02/14/17 Unknown History Mirtazapine 15 mg PO QHS 12/27/16 02/14/17 Unknown History Omeprazole Magnesium [PriLOSEC Otc] 20 mg PO QDAY 12/27/16 02/14/17 Unknown History Ondansetron [Zofran TAB] 4 mg PO Q4H PRN 12/27/16 02/14/17 Unknown History Sevelamer HCl [Renagel] 400 mg PO TIDWM 12/27/16 02/14/17 Unknown History Thiamine [Vitamin B-1] 100 mg PO QDAY 12/27/16 02/14/17 Unknown History Vit B Comp No.3/Folic/C/Biotin 1 each PO DAILY 12/27/16 02/14/17 Unknown History [Cheryl-Pricilla Rx Tablet] busPIRone [Buspar] 5 mg PO DAILY 12/27/16 02/14/17 Unknown History diphenhydrAMINE [Benadryl CAP] 25 mg PO DAILY PRN 12/27/16 02/14/17 Unknown History levETIRAcetam [Keppra TAB] 500 mg PO BID #60 tablet 01/11/17 02/14/17 Unknown Rx Pantoprazole [Protonix TAB] 40 mg PO QDAY #30 tablet 02/04/17 02/14/17 Unknown Rx Acetaminophen 650 mg PO Q4H PRN 02/14/17 02/14/17 Unknown History Insulin Lispro [HumaLOG VIAL] 0 unit SQ BID 02/14/17 02/14/17 Unknown History Insulin Lispro [Humalog 100 12 units SQ AC 02/14/17 02/14/17 Unknown History UNITS/ML Kwikpen] NIFEdipine XL [Procardia Xl] 60 mg PO Q12HR #60 tablet 02/16/17 Unknown Rx ED Physical Exam - General Limitations: Altered Mental Status General appearance: lethargic - Head Head exam: Present: atraumatic, normocephalic - Eye Eye exam: Present: normal appearance - ENT ENT exam: Present: mucous membranes moist - Neck Neck exam: Present: normal inspection - Respiratory Respiratory exam: Present: normal lung sounds bilaterally. Absent: respiratory distress - Cardiovascular Cardiovascular Exam: Present: regular rate, normal rhythm. Absent: systolic murmur, diastolic murmur, rubs, gallop - GI/Abdominal GI/Abdominal exam: Present: soft, normal bowel sounds. Absent: distended, tenderness, guarding, rebound - Rectal Rectal exam: Present: deferred - Extremities Exam Extremities exam: Present: other (left BKA no acute deformity) - Back Exam Back exam: Present: normal inspection - Neurological Exam Neurological exam: Present: alert, oriented X3, motor sensory deficit (question for plus out of 5 left hemiparesis). Absent: CN II-XII intact - Psychiatric Psychiatric exam: Present: normal affect, normal mood - Skin Skin exam: Present: warm, dry, intact, normal color. Absent: rash ED Course Vital Signs 11/10/18 11/10/18 09:15 09:54 Temperature 94.7 F L Pulse Rate 77 Respiratory 17 17 Rate Blood Pressure 94/58 Blood Pressure 94/55 [Left] O2 Sat by Pulse 100 99 Oximetry - Reevaluation(s) Reevaluation #1: Patient is not having elevated lactic acid level. I spoke to the hospitalist in charge Dr. Begum concerning the implications. At this point we will defer treatment to the admitting hospitalist at his discretion. The patient's white count is 6.1 and he is afebrile. 11/10/18 10:07 ED Medical Decision Making - Lab Data Result diagrams: 11/10/18 09:17 11/10/18 09:17 Laboratory Results - last 24 hr 11/10/18 11/10/18 11/10/18 09:02 09:17 09:17 WBC 6.1 RBC 4.71 Hgb 12.4 Hct 38.8 MCV 83 L MCH 26 L MCHC 32 RDW 15.6 H Plt Count 209 Lymph % (Auto) 17.5 [place] % (Auto) 8.0 H Eos % (Auto) 2.7 Baso % (Auto) 0.4 Lymph # 1.1 L [place] # 0.5 Eos # 0.2 Baso # 0.0 Seg Neutrophils % 71.4 H Seg Neutrophils # 4.4 Sodium 137 Potassium 4.5 Chloride 94.7 L Carbon Dioxide 25 Anion Gap 22 BUN 53 H Creatinine 10.0 H Estimated GFR 6 BUN/Creatinine Ratio 5 Glucose 142 H POC Glucose < 40 L Lactic Acid Calcium 9.8 Total Bilirubin 0.20 Direct Bilirubin < 0.2 Indirect Bilirubin 0.0 AST 12 ALT 9 Alkaline Phosphatase 153 H Total Protein 7.1 Albumin 4.0 Albumin/Globulin Ratio 1.3 11/10/18 11/10/18 09:17 09:35 WBC RBC Hgb Hct MCV MCH MCHC RDW Plt Count Lymph % (Auto) [place] % (Auto) Eos % (Auto) Baso % (Auto) Lymph # [place] # Eos # Baso # Seg Neutrophils % Seg Neutrophils # Sodium Potassium Chloride Carbon Dioxide Anion Gap BUN Creatinine Estimated GFR BUN/Creatinine Ratio Glucose POC Glucose 78 Lactic Acid 2.60 H* Calcium Total Bilirubin Direct Bilirubin Indirect Bilirubin AST ALT Alkaline Phosphatase Total Protein Albumin Albumin/Globulin Ratio Critical care attestation.: If time is entered above; I have spent that time in minutes in the direct care of this critically ill patient, excluding procedure time. ED Disposition Clinical Impression: End stage renal failure on dialysis, Hypoglycemia due to type 1 diabetes mellitus, Elevated lactic acid level Disposition: OP ADMIT IP TO THIS HOSP Is pt being admited?: Yes Does the pt Need Aspirin: Yes Condition: Stable Instructions: Diabetes Mellitus Type 2 in Adults (ED) Referrals: PRIMARY CARE, [Primary Care Provider] - 3-5 Days Time of Disposition: 10:09
[2018-11-10 09:49] LABS: Alanine Aminotransferase 9 units/L (7-56); BUN/Creatinine Ratio 5; Blood Urea Nitrogen 53 mg/dL (9-20); Calcium 9.8 mg/dL (8.4-10.2); Hemolysis Index 3
[2018-11-10 09:52] LABS: Bilirubin,Direct < 0.2 mg/dL (0-0.2)
[2018-11-10 09:57] LABS: Basophils % (Auto) 0.4 % (0.0-1.8); Eosinophils # (Auto) 0.2 K/mm3 (0.0-0.4); Eosinophils % (Auto) 2.7 % (0.0-4.3); Hematocrit 38.8 % (35.5-45.6); Hemoglobin 12.4 gm/dl (11.8-15.2); Lymphocytes # (Auto) 1.1 K/mm3 (1.2-5.4); Lymphocytes % (Auto) 17.5 % (13.4-35.0); Mean Corpuscular HGB Conc 32 % (32-34); Mean Corpuscular Volume 83 fl (84-94); Monocytes # (Auto) 0.5 K/mm3 (0.0-0.8); Platelet Count 209 K/mm3 (140-440); Red Blood Count 4.71 M/mm3 (3.65-5.03); Red Cell Distribution Width 15.6 % (13.2-15.2)
[2018-11-10] MEDS ORDERED: BABY ASPIRIN PO ONE (10:09)
[2018-11-10 10:54] LABS: INR 1.02 (0.87-1.13)
[2018-11-10] MEDS ORDERED: BABY ASPIRIN ONE (11:02)
--- NOTE | 2018-11-10 11:04 | XRay Report ---
AP CHEST: HISTORY: Hypertension AP view of the chest demonstrates a normal mediastinal and cardiac contour with clear lungs and normal bony and soft tissue structures. IMPRESSION: Unremarkable AP chest.
--- NOTE | 2018-11-10 11:11 | History and Physical Report ---
History of Present Illness Date of examination: 11/10/18 Date of admission: 11/10/18 10:09 Chief complaint: confusion History of present illness: Patient is confused and unable to give history. History is obtained from chart review. 58-year-old -Vin[place] male with past medical history significant for type 2 diabetes, end-stage renal disease on hemodialysis, hypertension, GERD, seizures, COPD, anemia was brought via EMS this morning to just department for complaints of confusion. Blood sugar was checked and it was 20 and patient was given IV dextrose, patient had lactic acidosis, hypotension and hypothermia. Blood culture and urine culture was obtained, ID and nephrology consulted. Patient was given a dose of Meropenem and vancomycin and transferred to the floor for further management and plan. Review of system couldn't be obtained because of patient's confusion. Past History Past Medical History: anemia, diabetes, GERD, hypertension, renal failure, seizures Past Surgical History: Other (right AV graft and left BKA.) Social history: smoking, full code. denies: alcohol abuse, prescription drug abuse, IV drug use Family history: no significant family history Medications and Allergies Allergies Allergy/AdvReac Type Severity Reaction Status Date / Time Penicillins Allergy Unknown Verified 11/10/18 09:47 Home Medications Medication Instructions Recorded Confirmed Last Taken Type Ascorbic Acid [Vitamin C] 500 mg PO BID 12/27/16 11/10/18 Unknown History AtorvaSTATin [Lipitor] 40 mg PO QHS 12/27/16 11/10/18 Unknown History Ferrous Sulfate [Feosol 325 MG tab] 325 mg PO BID 12/27/16 11/10/18 Unknown History Folic Acid [Folvite] 1 mg PO QDAY 12/27/16 11/10/18 Unknown History Omeprazole Magnesium [PriLOSEC Otc] 20 mg PO QDAY 12/27/16 11/10/18 Unknown History Ondansetron [Zofran TAB] 4 mg PO Q4H PRN 12/27/16 11/10/18 Unknown History Thiamine [Vitamin B-1] 100 mg PO QDAY 12/27/16 11/10/18 Unknown History Vit B Comp No.3/Folic/C/Biotin 1 each PO DAILY 12/27/16 11/10/18 Unknown History [Cheryl-Pricilla Rx Tablet] diphenhydrAMINE [Benadryl CAP] 25 mg PO DAILY PRN 12/27/16 11/10/18 Unknown History Pantoprazole [Protonix TAB] 40 mg PO QDAY #30 tablet 02/04/17 11/10/18 Unknown Rx Acetaminophen 650 mg PO Q4H PRN 02/14/17 11/10/18 Unknown History Insulin Lispro [HumaLOG VIAL] 0 unit SQ BID 02/14/17 11/10/18 Unknown History Insulin Lispro [Humalog 100 20 units SQ AC 02/14/17 11/10/18 Unknown History UNITS/ML Kwikpen] Cinacalcet [Sensipar] 30 mg PO QDAY 11/10/18 11/10/18 Unknown History Donepezil HCl 10 mg PO QHS 11/10/18 11/10/18 Unknown History Insulin Glargine,Hum.rec.anlog 44 units SQ QHS 11/10/18 11/10/18 Unknown History [Lantus] Losartan Potassium 100 mg PO QHS 11/10/18 11/10/18 Unknown History Metoprolol Tartrate 75 mg PO BID 11/10/18 11/10/18 Unknown History Ranitidine HCl [Zantac 150 MG TAB] 150 mg PO QHS 11/10/18 11/10/18 Unknown History Sevelamer Carbonate 2,400 mg PO TIDWM 11/10/18 11/10/18 Unknown History amLODIPine [Norvasc] 10 mg PO DAILY 11/10/18 11/10/18 Unknown History cloNIDine-TTS PATCH [Catapres-Tts 1 patch TD Q7D 11/10/18 11/10/18 Unknown History Patch] levETIRAcetam [Keppra TAB] 250 mg PO BID 11/10/18 11/10/18 Unknown History Active Meds: Active Medications Meropenem 1,000 mg/ Sodium (Chloride) 100 mls @ 100 mls/hr IV ONCE ONE Stop: 11/10/18 12:04 Exam - Physical Exam Narrative exam: Not in cardiopulmonary distress. The patient appeared well nourished and normally developed. Vital signs as documented. Head exam is unremarkable. No scleral icterus . Neck is without jugular venous distension, thyromegaly, or carotid bruits. Lungs are clear to auscultation. Cardiac exam reveals regular rate and Rhythm. Abdominal exam reveals normal bowel sounds. Extremities are nonedematous and both femoral and pedal pulses are normal. ADMITTING COUNSELOR: Patient was sleepy and confused. - Constitutional Vitals: Temp Pulse Resp BP Pulse Ox 94.7 F L 76 18 126/68 99 11/10/18 09:15 11/10/18 10:00 11/10/18 10:00 11/10/18 10:00 11/10/18 09:54 Results - Labs CBC & Chem 7: 11/10/18 09:17 11/10/18 09:17 Labs: Laboratory Last Values WBC 6.1 K/mm3 (4.5-11.0) 11/10/18 09:17 RBC 4.71 M/mm3 (3.65-5.03) 11/10/18 09:17 Hgb 12.4 gm/dl (11.8-15.2) 11/10/18 09:17 Hct 38.8 % (35.5-45.6) 11/10/18 09:17 MCV 83 fl (84-94) L 11/10/18 09:17 MCH 26 pg (28-32) L 11/10/18 09:17 MCHC 32 % (32-34) 11/10/18 09:17 RDW 15.6 % (13.2-15.2) H 11/10/18 09:17 Plt Count 209 K/mm3 (140-440) 11/10/18 09:17 Lymph % (Auto) 17.5 % (13.4-35.0) 11/10/18 09:17 [place] % (Auto) 8.0 % (0.0-7.3) H 11/10/18 09:17 Eos % (Auto) 2.7 % (0.0-4.3) 11/10/18 09:17 Baso % (Auto) 0.4 % (0.0-1.8) 11/10/18 09:17 Lymph # 1.1 K/mm3 (1.2-5.4) L 11/10/18 09:17 [place] # 0.5 K/mm3 (0.0-0.8) 11/10/18 09:17 Eos # 0.2 K/mm3 (0.0-0.4) 11/10/18 09:17 Baso # 0.0 K/mm3 (0.0-0.1) 11/10/18 09:17 Seg Neutrophils % 71.4 % (40.0-70.0) H 11/10/18 09:17 Seg Neutrophils # 4.4 K/mm3 (1.8-7.7) 11/10/18 09:17 PT 14.0 Sec. (12.2-14.9) 11/10/18 10:04 INR 1.02 (0.87-1.13) 11/10/18 10:04 APTT 31.0 Sec. (24.2-36.6) 11/10/18 10:04 Sodium 137 mmol/L (137-145) 11/10/18 09:17 Potassium 4.5 mmol/L (3.6-5.0) 11/10/18 09:17 Chloride 94.7 mmol/L (98-107) L 11/10/18 09:17 Carbon Dioxide 25 mmol/L (22-30) 11/10/18 09:17 Anion Gap 22 mmol/L 11/10/18 09:17 BUN 53 mg/dL (9-20) H 11/10/18 09:17 Creatinine 10.0 mg/dL (0.8-1.5) H 11/10/18 09:17 Estimated GFR 6 ml/min 11/10/18 09:17 BUN/Creatinine Ratio 5 % 11/10/18 09:17 Glucose 142 mg/dL (75-100) H 11/10/18 09:17 POC Glucose 287 (70-105) H 11/10/18 11:08 Lactic Acid 2.60 mmol/L (0.7-2.0) H* 11/10/18 09:17 Calcium 9.8 mg/dL (8.4-10.2) 11/10/18 09:17 Magnesium 2.40 mg/dL (1.7-2.3) H 11/10/18 09:17 Total Bilirubin 0.20 mg/dL (0.1-1.2) 11/10/18 09:17 Direct Bilirubin < 0.2 mg/dL (0-0.2) 11/10/18 09:17 Indirect Bilirubin 0.0 mg/dL 11/10/18 09:17 AST 12 units/L (5-40) 11/10/18 09:17 ALT 9 units/L (7-56) 11/10/18 09:17 Alkaline Phosphatase 153 units/L (35-129) H 11/10/18 09:17 NT-Pro-B Natriuret Pep 2822 pg/mL (0-900) H 11/10/18 09:17 Total Protein 7.1 g/dL (6.3-8.2) 11/10/18 09:17 Albumin 4.0 g/dL (3.9-5) 11/10/18 09:17 Albumin/Globulin Ratio 1.3 % 11/10/18 09:17 Assessment and Plan Assessment and plan: Metabolic encephalopathy - Likely due to hypoglycemia - Treat the underlying cause Hypoglycemia - Patient was given D50 and currently his blood sugar is on the high side - We'll monitor Hypothermia - We will repeat and if still hypothermic going to put bear hugger Hypertension - Corrected with IV fluids Lactic acidosis - will repeat lactic acid level - Patient was given a dose of vancomycin and meropenem in the ED - ID consulted - Follow blood culture and urine culture End-stage renal disease on hemodialysis - Nephrology consulted DVT prophylaxis - On heparin Disposition - Admitted to the floor
[2018-11-10] MEDS ORDERED: VANCOMYCIN PHARMACY TO DOSE IV SCH (12:00)
--- NOTE | 2018-11-10 12:01 | Consultation ---
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 Patient was a poor historian and not sure why he came to the hospital. He was poorly responsive this morning. He was found to be hypoglycemic. EMS found his blood glucose in the 20s. However EMS was unable to initiate an IV enroute to the hospital. Upon his arrival to ED his blood sugar was <40. He immediately started an IV line and D50 was given with good response. He was last dialyzed 2 days ago. Past History Past Medical History: diabetes, dialysis, ESRD, GERD, hypertension, hyperlipidemia, seizures Medications and Allergies Allergies Allergy/AdvReac Type Severity Reaction Status Date / Time Penicillins Allergy Unknown Verified 11/10/18 09:47 Home Medications Medication Instructions Recorded Confirmed Last Taken Type Ascorbic Acid [Vitamin C] 500 mg PO BID 12/27/16 11/10/18 Unknown History AtorvaSTATin [Lipitor] 40 mg PO QHS 12/27/16 11/10/18 Unknown History Ferrous Sulfate [Feosol 325 MG tab] 325 mg PO BID 12/27/16 11/10/18 Unknown History Folic Acid [Folvite] 1 mg PO QDAY 12/27/16 11/10/18 Unknown History Omeprazole Magnesium [PriLOSEC Otc] 20 mg PO QDAY 12/27/16 11/10/18 Unknown History Ondansetron [Zofran TAB] 4 mg PO Q4H PRN 12/27/16 11/10/18 Unknown History Thiamine [Vitamin B-1] 100 mg PO QDAY 12/27/16 11/10/18 Unknown History Vit B Comp No.3/Folic/C/Biotin 1 each PO DAILY 12/27/16 11/10/18 Unknown History [Cheryl-Pricilla Rx Tablet] diphenhydrAMINE [Benadryl CAP] 25 mg PO DAILY PRN 12/27/16 11/10/18 Unknown History Pantoprazole [Protonix TAB] 40 mg PO QDAY #30 tablet 02/04/17 11/10/18 Unknown Rx Acetaminophen 650 mg PO Q4H PRN 02/14/17 11/10/18 Unknown History Insulin Lispro [HumaLOG VIAL] 0 unit SQ BID 02/14/17 11/10/18 Unknown History Insulin Lispro [Humalog 100 20 units SQ AC 02/14/17 11/10/18 Unknown History UNITS/ML Kwikpen] Cinacalcet [Sensipar] 30 mg PO QDAY 11/10/18 11/10/18 Unknown History Donepezil HCl 10 mg PO QHS 11/10/18 11/10/18 Unknown History Insulin Glargine,Hum.rec.anlog 44 units SQ QHS 11/10/18 11/10/18 Unknown History [Lantus] Losartan Potassium 100 mg PO QHS 11/10/18 11/10/18 Unknown History Metoprolol Tartrate 75 mg PO BID 11/10/18 11/10/18 Unknown History Ranitidine HCl [Zantac 150 MG TAB] 150 mg PO QHS 11/10/18 11/10/18 Unknown History Sevelamer Carbonate 2,400 mg PO TIDWM 11/10/18 11/10/18 Unknown History amLODIPine [Norvasc] 10 mg PO DAILY 11/10/18 11/10/18 Unknown History cloNIDine-TTS PATCH [Catapres-Tts 1 patch TD Q7D 11/10/18 11/10/18 Unknown History Patch] levETIRAcetam [Keppra TAB] 250 mg PO BID 11/10/18 11/10/18 Unknown History Active Meds: Active Medications Meropenem 1,000 mg/ Sodium (Chloride) 100 mls @ 100 mls/hr IV ONCE ONE Stop: 11/10/18 12:04 Review of Systems ROS unobtainable: due to mental status Exam - Vital Signs Vital signs: Vital Signs Temp Pulse Resp BP Pulse Ox 94.7 F L 77 17 94/55 100 11/10/18 09:15 11/10/18 09:15 11/10/18 09:15 11/10/18 09:15 11/10/18 09:15 - General Appearance General appearance: well-developed, appears stated age, other (not in distress) EENT: ATNC, PERRL, hearing intact, vision intact Neck: Present: neck supple, trachea midline Respiratory: Clear to Ascultation Heart: regular, S1S2, no murmurs Gastrointestinal: Present: normoactive bowel sounds. Absent: tenderness, distended Integumentary: no rash, warm and dry Neurologic: no focal deficit, no asterixis, confused, disoriented Musculoskeletal: Present: other (left BKA, right arm AVF, no edema) Psychiatric: cooperative Results - Lab Results 11/10/18 09:17 11/10/18 09:17 Most recent lab results Calcium 9.8 mg/dL (8.4-10.2) 11/10/18 09:17 Magnesium 2.40 mg/dL (1.7-2.3) H 11/10/18 09:17 Assessment and Plan 1. ESRD: Continue hemodialysis three times a week, TTS schedule. HD today, orders placed. 2. Hypoglycemia: Blood sugar is better. 3. DM type 2. 4. HTN: BP controlled.
[2018-11-10] MEDS ORDERED: NACL 0.9% 100 ML IV PRN (12:02)
[2018-11-10] MEDS ORDERED: MERREM 1,000 MG in NACL 0.9% 100 ML IV ONE (12:30)
--- NOTE | 2018-11-10 13:57 | Consultation ---
History of Present Illness - Reason for Consult Consult date: 11/10/18 lactic acidosis, Hypoglycemia, hypothermia Requesting physician: MARC LINARES - History of Present Illness This patient is a 58 year old male resident with a past medical history of type 2 diabetes, end-stage renal disease on hemodialysis, hypertension, GERD, seizures, COPD, anemia who was brought to the ED today because he was found to be poorly responsive this morning. Upon further evaluation, he was found to be hypoglycemic, BG was in the 20's, hypothermic and hypotensive. On admission WBC 6.1, Creatinine 10.1 , Lactic Acid 2.60, Temperature 94.7, HR 77, Blood pressure 94/58, Chest xray shows no consolidation, blood cultures were drawn and are pending. Past History Past Medical History: diabetes, dialysis, ESRD, GERD, hypertension, hyperlipidemia, seizures Medications and Allergies Allergies Allergy/AdvReac Type Severity Reaction Status Date / Time Penicillins Allergy Unknown Verified 11/10/18 09:47 Home Medications Medication Instructions Recorded Confirmed Last Taken Type Ascorbic Acid [Vitamin C] 500 mg PO BID 12/27/16 11/10/18 Unknown History AtorvaSTATin [Lipitor] 40 mg PO QHS 12/27/16 11/10/18 Unknown History Ferrous Sulfate [Feosol 325 MG tab] 325 mg PO BID 12/27/16 11/10/18 Unknown History Folic Acid [Folvite] 1 mg PO QDAY 12/27/16 11/10/18 Unknown History Omeprazole Magnesium [PriLOSEC Otc] 20 mg PO QDAY 12/27/16 11/10/18 Unknown History Ondansetron [Zofran TAB] 4 mg PO Q4H PRN 12/27/16 11/10/18 Unknown History Thiamine [Vitamin B-1] 100 mg PO QDAY 12/27/16 11/10/18 Unknown History Vit B Comp No.3/Folic/C/Biotin 1 each PO DAILY 12/27/16 11/10/18 Unknown History [Cheryl-Pricilla Rx Tablet] diphenhydrAMINE [Benadryl CAP] 25 mg PO DAILY PRN 12/27/16 11/10/18 Unknown History Pantoprazole [Protonix TAB] 40 mg PO QDAY #30 tablet 02/04/17 11/10/18 Unknown Rx Acetaminophen 650 mg PO Q4H PRN 02/14/17 11/10/18 Unknown History Insulin Lispro [HumaLOG VIAL] 0 unit SQ BID 02/14/17 11/10/18 Unknown History Insulin Lispro [Humalog 100 20 units SQ AC 02/14/17 11/10/18 Unknown History UNITS/ML Kwikpen] Cinacalcet [Sensipar] 30 mg PO QDAY 11/10/18 11/10/18 Unknown History Donepezil HCl 10 mg PO QHS 11/10/18 11/10/18 Unknown History Insulin Glargine,Hum.rec.anlog 44 units SQ QHS 11/10/18 11/10/18 Unknown History [Lantus] Losartan Potassium 100 mg PO QHS 11/10/18 11/10/18 Unknown History Metoprolol Tartrate 75 mg PO BID 11/10/18 11/10/18 Unknown History Ranitidine HCl [Zantac 150 MG TAB] 150 mg PO QHS 11/10/18 11/10/18 Unknown History Sevelamer Carbonate 2,400 mg PO TIDWM 11/10/18 11/10/18 Unknown History amLODIPine [Norvasc] 10 mg PO DAILY 11/10/18 11/10/18 Unknown History cloNIDine-TTS PATCH [Catapres-Tts 1 patch TD Q7D 11/10/18 11/10/18 Unknown History Patch] levETIRAcetam [Keppra TAB] 250 mg PO BID 11/10/18 11/10/18 Unknown History Active Meds: Active Medications Sodium Chloride (Nacl 0.9%) 100 mls @ 999 mls/hr IV CORBY PRN PRN Reason: Hypotension Vancomycin HCl 1,500 mg/ (Sodium Chloride) 530 mls @ 333.333 mls/hr IV ONCE ONE Stop: 11/10/18 15:35 Review of Systems ROS unobtainable: due to mental status Physical Examination - Physical Exam Narrative exam: Constitutional: Asleep, easily arousable, No acute distress, confused Head, Ears, Nose: Normocephalic, atraumatic. External ears, nose normal Eyes: Conjunctivae/corneas clear. No icterus. No ptosis. Neck: Supple, no meningeal signs Oral: dentition poor. no thrush Cardiovascular: S1, S2 normal. Respiratory: Good air entry, clear to auscultation bilaterally GI: Soft, non-tender; bowel sounds normal. No peritoneal signs Musculoskeletal: No pedal edema, no cyanosis, Left BKA, 10 years ago, + left hemiparesis , R AVF Skin: No rash or abscess. Hem/Lymphatic: No palpable cervical or supraclavicular nodes. No lymphangitis Psych: Mood ok. Affect flat Neurological: sleepy, confused. - Constitutional Vitals: Vital Signs Temp Pulse Resp BP Pulse Ox 97.0 F L 71 15 142/77 99 11/10/18 11:52 11/10/18 11:52 11/10/18 11:52 11/10/18 11:52 11/10/18 11:52 Temperature -Last 24 Hours Temperature 97.0 F Temperature 94.7 F Temperature 94.7 F Results - Labs CBC & Chem 7: 11/10/18 09:17 11/10/18 09:17 Labs: Abnormal lab results 11/10/18 11/10/18 11/10/18 Range/Units 09:02 09:17 09:17 MCV 83 L (84-94) fl MCH 26 L (28-32) pg RDW 15.6 H (13.2-15.2) % [place] % (Auto) 8.0 H (0.0-7.3) % Lymph # 1.1 L (1.2-5.4) K/mm3 Seg Neutrophils % 71.4 H (40.0-70.0) % Chloride 94.7 L (98-107) mmol/L BUN 53 H (9-20) mg/dL Creatinine 10.0 H (0.8-1.5) mg/dL Glucose 142 H (75-100) mg/dL POC Glucose < 40 L (70-105) Lactic Acid (0.7-2.0) mmol/L Magnesium (1.7-2.3) mg/dL Alkaline Phosphatase 153 H (35-129) units/L NT-Pro-B Natriuret Pep (0-900) pg/mL 11/10/18 11/10/18 11/10/18 Range/Units 09:17 09:17 11:08 MCV (84-94) fl MCH (28-32) pg RDW (13.2-15.2) % [place] % (Auto) (0.0-7.3) % Lymph # (1.2-5.4) K/mm3 Seg Neutrophils % (40.0-70.0) % Chloride (98-107) mmol/L BUN (9-20) mg/dL Creatinine (0.8-1.5) mg/dL Glucose (75-100) mg/dL POC Glucose 287 H (70-105) Lactic Acid 2.60 H* (0.7-2.0) mmol/L Magnesium 2.40 H (1.7-2.3) mg/dL Alkaline Phosphatase (35-129) units/L NT-Pro-B Natriuret Pep 2822 H (0-900) pg/mL Assessment and Plan Cultures: 11/10/18 Blood: in progress A/P: 66-year-old resident with a past medical history of ESRD on HD, diabetes and left sided weakness,admitted with: 1. SIRS vs Sepsis: Likely SIRS in the setting of severe acidosis from uncontrolled diabetes and associated hypoglycemia. Chest x-ray without any evidence of pneumonia, no fever + hypothermia, temperature on admission 94.7, no leukocytosis. Blood cultures were drawn and are pending. Currently being treated with vancomycin 2. Metabolic acidosis: Lactic acidosis 3. Diabetes mellitus type 2 uncontrolled: On admission , BG in the 20's, was given D50. Responded favorably. 4. ESRD on HD: antibiotics renally dosed, Right AVF HD TTS- Nephrology following 5. Peripheral vascular disease. 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 6. Metabolic Encephalopathy: Continuing, etiology most likely hypoglycemia, unsure of baseline. 7. Penicillin Allergy: unknown cause, poor historian Plan: -f/u blood culture -f/u U/A and urine culture -influenza PCR and MRSA PCR ordered -CRP ordered -repeat chest xray in 48 hours -continue Vancomycin for now d/w Dr. Vance Ludwig, PRODUCTION RECOVERY OPERATOR [facility] M: [phone] O:[phone]
[2018-11-10] MEDS ORDERED: VANCOMYCIN 1,500 MG in NACL 0.9% 500 ML 500 ML IV ONE (14:00)
[2018-11-10] MEDS: RENVELA PO SCH (17:00)
[2018-11-10] MEDS ORDERED: AFLURIA QUAD 2018-2019 SYRINGE IM ONE (18:59)
[2018-11-10] MEDS ORDERED: PNEUMOVAX 23 IM ONE (18:59)
[2018-11-10] MEDS ORDERED: NACL 0.9 (PRIMING MACHINE ONLY DIALYSIS) MC ONE (19:04)
[2018-11-10] MEDS: LEVAQUIN 500MG/100ML 500 MG/100 ML BAG IV SCH (21:54)
[2018-11-10] MEDS: HEPARIN SUB-Q SCH ×2 (21:55)
[2018-11-10] MEDS: KEPPRA PO SCH (21:56)
[2018-11-10] MEDS: VITAMIN C PO SCH (21:56)
[2018-11-10] MEDS: ARICEPT PO SCH (21:57)
[2018-11-10] MEDS ORDERED: NON-FORMULARY (Levetiracetam [Keppra Tab] 250 MG) PO SCH (22:00)
[2018-11-11] MEDS: HEPARIN SUB-Q SCH ×3 (06:00→23:11)
--- NOTE | 2018-11-11 08:22 | Progress Note ---
Assessment and Plan Cultures: 11/10/18 Blood: in progress A/P: 66-year-old resident with a past medical history of ESRD on HD, diabetes and left sided weakness,admitted with: 1. SIRS : in the setting of severe acidosis from uncontrolled diabetes and associated hypoglycemia. Chest x-ray without any evidence of pneumonia, no fever + hypothermia, temperature on admission 94.7, no leukocytosis. Blood cultures were drawn and are pending. Currently being treated with vancomycin CRP .20 2. Metabolic acidosis: Lactic acidosis 3. Diabetes mellitus type 2 uncontrolled: On admission, BG in the 20's, was given D50. Responded favorably. 4. ESRD on HD: antibiotics renally dosed, Right AVF HD TTS- Nephrology following 5. Peripheral vascular disease. 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 6. Metabolic Encephalopathy: Continuing, etiology most likely hypoglycemia, unsure of baseline. 7. Penicillin Allergy: unknown cause, poor historian Plan: -f/u blood culture -f/u U/A and urine culture - f/u influenza PCR and MRSA PCR ordered -repeat chest xray in 48 hours -continue Vancomycin PK dosing, D2 -continue Levaquin 500 mg IV every 48 -If patient continues to improve will discharge on levaquin 500 mg PO every 48h, total 7 days ending 11-23-18. d/w Dr. Vance Woodard will be area loss prevention manager this weekend, , please call for questions. [facility] M: [phone] O:[phone] Subjective Date of service: 11/11/18 Interval history: Patient seen and examined, stated that he was feeling better today, more alert. no fevers. Objective - Exam Narrative Exam: Constitutional: Awake, alert, No acute distress, Head, Ears, Nose: Normocephalic, atraumatic. External ears, nose normal Eyes: Conjunctivae/corneas clear. No icterus. No ptosis. Neck: Supple, no meningeal signs Oral: dentition poor. no thrush Cardiovascular: S1, S2 normal. Respiratory: Good air entry, clear to auscultation bilaterally GI: Soft, non-tender; bowel sounds normal. No peritoneal signs Musculoskeletal: No pedal edema, no cyanosis, Left BKA, 10 years ago, + left hemiparesis , R AVF Skin: No rash or abscess. Hem/Lymphatic: No palpable cervical or supraclavicular nodes. No lymphangitis Psych: Mood ok. Affect flat Neurological: More alert today. - Constitutional Vitals: Vital Signs Temp Pulse Resp BP Pulse Ox 98.5 F 155 H 24 147/86 75 L 11/10/18 19:33 11/10/18 19:33 11/10/18 19:33 11/10/18 19:33 11/10/18 19:33 Temperature -Last 24 Hours Temperature 98.5 F Temperature 98.1 F Temperature 98.4 F Temperature 97.0 F Temperature 94.7 F Temperature 94.7 F - Labs CBC & Chem 7: 11/11/18 14:33 11/11/18 14:33 Labs: Abnormal lab results 11/10/18 11/10/18 11/10/18 Range/Units 09:02 09:17 09:17 MCV 83 L (84-94) fl MCH 26 L (28-32) pg RDW 15.6 H (13.2-15.2) % [place] % (Auto) 8.0 H (0.0-7.3) % Lymph # 1.1 L (1.2-5.4) K/mm3 Seg Neutrophils % 71.4 H (40.0-70.0) % Chloride 94.7 L (98-107) mmol/L BUN 53 H (9-20) mg/dL Creatinine 10.0 H (0.8-1.5) mg/dL Glucose 142 H (75-100) mg/dL POC Glucose < 40 L (70-105) Lactic Acid (0.7-2.0) mmol/L Magnesium (1.7-2.3) mg/dL Alkaline Phosphatase 153 H (35-129) units/L NT-Pro-B Natriuret Pep (0-900) pg/mL 11/10/18 11/10/18 11/10/18 Range/Units 09:17 09:17 11:08 MCV (84-94) fl MCH (28-32) pg RDW (13.2-15.2) % [place] % (Auto) (0.0-7.3) % Lymph # (1.2-5.4) K/mm3 Seg Neutrophils % (40.0-70.0) % Chloride (98-107) mmol/L BUN (9-20) mg/dL Creatinine (0.8-1.5) mg/dL Glucose (75-100) mg/dL POC Glucose 287 H (70-105) Lactic Acid 2.60 H* (0.7-2.0) mmol/L Magnesium 2.40 H (1.7-2.3) mg/dL Alkaline Phosphatase (35-129) units/L NT-Pro-B Natriuret Pep 2822 H (0-900) pg/mL 11/10/18 11/10/18 11/10/18 Range/Units 11:49 19:58 23:39 MCV (84-94) fl MCH (28-32) pg RDW (13.2-15.2) % [place] % (Auto) (0.0-7.3) % Lymph # (1.2-5.4) K/mm3 Seg Neutrophils % (40.0-70.0) % Chloride (98-107) mmol/L BUN (9-20) mg/dL Creatinine (0.8-1.5) mg/dL Glucose (75-100) mg/dL POC Glucose 168 H 218 H 220 H (70-105) Lactic Acid (0.7-2.0) mmol/L Magnesium (1.7-2.3) mg/dL Alkaline Phosphatase (35-129) units/L NT-Pro-B Natriuret Pep (0-900) pg/mL 11/11/18 Range/Units 05:10 MCV (84-94) fl MCH (28-32) pg RDW (13.2-15.2) % [place] % (Auto) (0.0-7.3) % Lymph # (1.2-5.4) K/mm3 Seg Neutrophils % (40.0-70.0) % Chloride (98-107) mmol/L BUN (9-20) mg/dL Creatinine (0.8-1.5) mg/dL Glucose (75-100) mg/dL POC Glucose 126 H (70-105) Lactic Acid (0.7-2.0) mmol/L Magnesium (1.7-2.3) mg/dL Alkaline Phosphatase (35-129) units/L NT-Pro-B Natriuret Pep (0-900) pg/mL
[2018-11-11] MEDS: PROTONIX PO SCH (09:05)
[2018-11-11] MEDS: KEPPRA PO SCH ×2 (09:05→22:43)
[2018-11-11] MEDS: SENSIPAR PO SCH (09:06)
[2018-11-11] MEDS: VITAMIN C PO SCH ×2 (09:06→22:43)
[2018-11-11] MEDS: FOLVITE PO SCH (09:06)
[2018-11-11] MEDS: RENVELA PO SCH ×3 (09:07→18:28)
--- NOTE | 2018-11-11 09:46 | Progress Note ---
Assessment and Plan 1. ESRD: Continue hemodialysis three times a week, TTS schedule. Last dialyzed yesterday. 2. Hypoglycemia: Blood sugar is better. 3. DM type 2. 4. HTN: BP controlled. 5. SIRS. Subjective Date of service: 11/11/18 Interval history: Patient is feeling better. Objective - General Appearance General appearance: well-developed, appears stated age, other (not in distress) EENT: ATNC, PERRL, hearing intact, vision intact Neck: supple Respiratory: Present: Clear to Ascultation Cardiology: regular, S1S2, no murmurs Gastrointestinal: normoactive bowel sounds, no tenderness, no distended Integumentary: no rash, warm and dry Neurologic: no focal deficit, no asterixis, confused Musculoskeletal: other (no edema, right arm AVF, left BKA) - Lab 11/11/18 14:33 11/11/18 14:33 Most recent lab results Calcium 9.8 mg/dL (8.4-10.2) 11/10/18 09:17 Magnesium 2.40 mg/dL (1.7-2.3) H 11/10/18 09:17 Medications & Allergies - Medications Allergies/Adverse Reactions: Allergies Penicillins Allergy (Verified 11/10/18 09:47) Unknown Home Medications: Home Medications Medication Instructions Recorded Confirmed Last Taken Type Ascorbic Acid [Vitamin C] 500 mg PO BID 12/27/16 11/10/18 Unknown History AtorvaSTATin [Lipitor] 40 mg PO QHS 12/27/16 11/10/18 Unknown History Ferrous Sulfate [Feosol 325 MG tab] 325 mg PO BID 12/27/16 11/10/18 Unknown Hi story Folic Acid [Folvite] 1 mg PO QDAY 12/27/16 11/10/18 Unknown History Omeprazole Magnesium [PriLOSEC Otc] 20 mg PO QDAY 12/27/16 11/10/18 Unknown History Ondansetron [Zofran TAB] 4 mg PO Q4H PRN 12/27/16 11/10/18 Unknown History Thiamine [Vitamin B-1] 100 mg PO QDAY 12/27/16 11/10/18 Unknown History Vit B Comp No.3/Folic/C/Biotin 1 each PO DAILY 12/27/16 11/10/18 Unknown History [Cheryl-Pricilla Rx Tablet] diphenhydrAMINE [Benadryl CAP] 25 mg PO DAILY PRN 12/27/16 11/10/18 Unknown History Pantoprazole [Protonix TAB] 40 mg PO QDAY #30 tablet 02/04/17 11/10/18 Unknown Rx Acetaminophen 650 mg PO Q4H PRN 02/14/17 11/10/18 Unknown History Insulin Lispro [HumaLOG VIAL] 0 unit SQ BID 02/14/17 11/10/18 Unknown History Insulin Lispro [Humalog 100 20 units SQ AC 02/14/17 11/10/18 Unknown History UNITS/ML Kwikpen] Cinacalcet [Sensipar] 30 mg PO QDAY 11/10/18 11/10/18 Unknown History Donepezil HCl 10 mg PO QHS 11/10/18 11/10/18 Unknown History Insulin Glargine,Hum.rec.anlog 44 units SQ QHS 11/10/18 11/10/18 Unknown History [Lantus] Losartan Potassium 100 mg PO QHS 11/10/18 11/10/18 Unknown History Metoprolol Tartrate 75 mg PO BID 11/10/18 11/10/18 Unknown History Ranitidine HCl [Zantac 150 MG TAB] 150 mg PO QHS 11/10/18 11/10/18 Unknown History Sevelamer Carbonate 2,400 mg PO TIDWM 11/10/18 11/10/18 Unknown History amLODIPine [Norvasc] 10 mg PO DAILY 11/10/18 11/10/18 Unknown History cloNIDine-TTS PATCH [Catapres-Tts 1 patch TD Q7D 11/10/18 11/10/18 Unknown History Patch] levETIRAcetam [Keppra TAB] 250 mg PO BID 11/10/18 11/10/18 Unknown History Active Medications: Generic Name Dose Route Start Last Admin Trade Name Freq PRN Reason Stop Dose Admin Ascorbic Acid 500 mg 11/10/18 22:00 11/11/18 09:06 Vitamin C PO 500 mg BID LUZ Administration Atorvastatin Calcium 40 mg 11/10/18 22:00 11/10/18 21:56 Lipitor PO 40 mg QHS LUZ Administration Cinacalcet 30 mg 11/11/18 10:00 11/11/18 09:06 Sensipar PO 30 mg QDAY LUZ Administration Donepezil HCl 10 mg 11/10/18 22:00 11/10/18 21:57 Aricept PO 10 mg QHS LUZ Administration Folic Acid 1 mg 11/11/18 10:00 11/11/18 09:06 Folvite PO 1 mg QDAY LUZ Administration Heparin Sodium (Porcine) 5,000 unit 11/10/18 22:00 11/11/18 06:00 Heparin SUB-Q Not Given Q8HR LUZ Sodium Chloride 100 mls @ 999 mls/hr 11/10/18 12:02 Nacl 0.9% IV CORBY PRN Hypotension Levofloxacin/Dextrose 500 mg in 100 mls @ 100 mls/hr 11/10/18 21:00 11/10/18 21:54 Levaquin 500mg/100ml IV 100 mls/hr Q48H LUZ Administration Protocol Levetiracetam 250 mg 11/10/18 22:00 11/11/18 09:05 Keppra PO 250 mg BID LUZ Administration Pantoprazole Sodium 40 mg 11/11/18 10:00 11/11/18 09:05 Protonix PO 40 mg QDAY LUZ Administration Sevelamer Carbonate 2,400 mg 11/10/18 17:00 11/11/18 09:07 Renvela PO 2,400 mg TIDWM LUZ Administration
[2018-11-11] MEDS ORDERED: AFLURIA QUAD 2018-2019 SYRINGE IM ONE (12:00)
--- NOTE | 2018-11-11 13:56 | Progress Note ---
Assessment and Plan Assessment and plan: Metabolic encephalopathy - Likely due to hypoglycemia - Treat the underlying cause Hypoglycemia - Patient was given D50 and currently his blood sugar is on the high side - currently normal - Will held insulin - Accu check Hypothermia - We will repeat and if still hypothermic going to put bear hugger Hypertension - Corrected with IV fluids Lactic acidosis - repeat lactic acid level this morning was normal - Patient was given a dose of vancomycin and meropenem in the ED, and currently on Levaquin - ID consulted - blood culture and urine culture negative so far End-stage renal disease on hemodialysis - Nephrology consulted and will resume HD DVT prophylaxis - On heparin Disposition - Observe him overnight and if stable can be discharged in AM back to [facility]. History Interval history: Patient was seen and evaluated this morning, patient was alert and oriented to place and person but not to time. Hospitalist Physical - Physical exam Narrative exam: Not in cardiopulmonary distress. The patient appeared well nourished and normally developed. Vital signs as documented. Head exam is unremarkable. No scleral icterus . Neck is without jugular venous distension, thyromegaly, or carotid bruits. Lungs are clear to auscultation. Cardiac exam reveals regular rate and Rhythm. Abdominal exam reveals normal bowel sounds. Extremities left BKA. 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 - Constitutional Vitals: Temp Pulse Resp BP Pulse Ox 98.5 F 155 H 24 147/86 75 L 11/10/18 19:33 11/10/18 19:33 11/10/18 19:33 11/10/18 19:33 11/10/18 19:33 Results - Labs CBC & Chem 7: 11/10/18 09:17 11/10/18 09:17 Labs: Laboratory Last Values WBC 6.1 K/mm3 (4.5-11.0) 11/10/18 09:17 RBC 4.71 M/mm3 (3.65-5.03) 11/10/18 09:17 Hgb 12.4 gm/dl (11.8-15.2) 11/10/18 09:17 Hct 38.8 % (35.5-45.6) 11/10/18 09:17 MCV 83 fl (84-94) L 11/10/18 09:17 MCH 26 pg (28-32) L 11/10/18 09:17 MCHC 32 % (32-34) 11/10/18 09:17 RDW 15.6 % (13.2-15.2) H 11/10/18 09:17 Plt Count 209 K/mm3 (140-440) 11/10/18 09:17 Lymph % (Auto) 17.5 % (13.4-35.0) 11/10/18 09:17 [place] % (Auto) 8.0 % (0.0-7.3) H 11/10/18 09:17 Eos % (Auto) 2.7 % (0.0-4.3) 11/10/18 09:17 Baso % (Auto) 0.4 % (0.0-1.8) 11/10/18 09:17 Lymph # 1.1 K/mm3 (1.2-5.4) L 11/10/18 09:17 [place] # 0.5 K/mm3 (0.0-0.8) 11/10/18 09:17 Eos # 0.2 K/mm3 (0.0-0.4) 11/10/18 09:17 Baso # 0.0 K/mm3 (0.0-0.1) 11/10/18 09:17 Seg Neutrophils % 71.4 % (40.0-70.0) H 11/10/18 09:17 Seg Neutrophils # 4.4 K/mm3 (1.8-7.7) 11/10/18 09:17 PT 14.0 Sec. (12.2-14.9) 11/10/18 10:04 INR 1.02 (0.87-1.13) 11/10/18 10:04 APTT 31.0 Sec. (24.2-36.6) 11/10/18 10:04 Sodium 137 mmol/L (137-145) 11/10/18 09:17 Potassium 4.5 mmol/L (3.6-5.0) 11/10/18 09:17 Chloride 94.7 mmol/L (98-107) L 11/10/18 09:17 Carbon Dioxide 25 mmol/L (22-30) 11/10/18 09:17 Anion Gap 22 mmol/L 11/10/18 09:17 BUN 53 mg/dL (9-20) H 11/10/18 09:17 Creatinine 10.0 mg/dL (0.8-1.5) H 11/10/18 09:17 Estimated GFR 6 ml/min 11/10/18 09:17 BUN/Creatinine Ratio 5 % 11/10/18 09:17 Glucose 142 mg/dL (75-100) H 11/10/18 09:17 POC Glucose 169 (70-105) H 11/11/18 12:46 Lactic Acid 2.00 mmol/L (0.7-2.0) 11/11/18 07:54 Calcium 9.8 mg/dL (8.4-10.2) 11/10/18 09:17 Magnesium 2.40 mg/dL (1.7-2.3) H 11/10/18 09:17 Total Bilirubin 0.20 mg/dL (0.1-1.2) 11/10/18 09:17 Direct Bilirubin < 0.2 mg/dL (0-0.2) 11/10/18 09:17 Indirect Bilirubin 0.0 mg/dL 11/10/18 09:17 AST 12 units/L (5-40) 11/10/18 09:17 ALT 9 units/L (7-56) 11/10/18 09:17 Alkaline Phosphatase 153 units/L (35-129) H 11/10/18 09:17 NT-Pro-B Natriuret Pep 2822 pg/mL (0-900) H 11/10/18 09:17 Total Protein 7.1 g/dL (6.3-8.2) 11/10/18 09:17 Albumin 4.0 g/dL (3.9-5) 11/10/18 09:17 Albumin/Globulin Ratio 1.3 % 11/10/18 09:17
--- NOTE | 2018-11-11 14:44 | Event Note ---
Date: 11/11/18 Physician Attestation: I have seen and examined patient. I personally discussed and directed assessment and management with [employer]AT[employer] TEACHER Oziel. Patient with SIRS of unclear etiology. ?pneumonia. Clinically better, still cough. Continue vancomycin andlevaquin. Repeat CXR. If he continues to improve will d/c on levaquin 500 mg PO q48h total 7 days. Krista Ramirez MD Infectious Diseases Or Manager [facility] M [phone] O [phone]
[2018-11-11 15:37] LABS: Basophils % (Auto) 0.3 % (0.0-1.8); Eosinophils # (Auto) 0.2 K/mm3 (0.0-0.4); Eosinophils % (Auto) 3.9 % (0.0-4.3); Hematocrit 37.7 % (35.5-45.6); Hemoglobin 12.1 gm/dl (11.8-15.2); Lymphocytes # (Auto) 1.6 K/mm3 (1.2-5.4); Lymphocytes % (Auto) 28.1 % (13.4-35.0); Mean Corpuscular HGB Conc 32 % (32-34); Mean Corpuscular Volume 82 fl (84-94); Monocytes # (Auto) 0.4 K/mm3 (0.0-0.8); Monocytes % (Auto) 7.6 % (0.0-7.3); Platelet Count 175 K/mm3 (140-440); Red Blood Count 4.62 M/mm3 (3.65-5.03); Red Cell Distribution Width 15.5 % (13.2-15.2)
[2018-11-11 15:53] LABS: Calcium 9.1 mg/dL (8.4-10.2)
[2018-11-11] MEDS ORDERED: D50W (25GM) Vial IV ONE (19:26)
[2018-11-11] MEDS ORDERED: D50W (25GM) Syringe IV ONE ×2 (20:00)
[2018-11-11] MEDS ORDERED: HumuLIN R IV ONE ×2 (20:00→22:15)
[2018-11-11] MEDS ORDERED: KIONEX PO ONE (20:00)
[2018-11-11] MEDS: ARICEPT PO SCH (22:43)
--- NOTE | 2018-11-12 06:04 | Progress Note ---
Assessment and Plan 1. ESRD: Continue hemodialysis three times a week, TTS schedule. HD today. 2. Hypoglycemia: Blood sugar is better. 3. DM type 2. 4. HTN: Monitor. 5. SIRS. Subjective Date of service: 11/12/18 Interval history: Patient is feeling better. Objective - Vital Signs Vital signs: Vital Signs - 12hr 11/11/18 11/11/18 22:00 23:28 Temperature 97.7 F Pulse Rate 79 Respiratory 20 18 Rate Blood Pressure 138/79 O2 Sat by Pulse 97 Oximetry - General Appearance General appearance: well-developed, appears stated age, other (not in distress) EENT: ATNC, PERRL, hearing intact, vision intact Neck: supple Respiratory: Present: Clear to Ascultation Cardiology: regular, S1S2, no murmurs Gastrointestinal: normoactive bowel sounds, no tenderness, no distended Integumentary: no rash, warm and dry Neurologic: no focal deficit, no asterixis Musculoskeletal: other (left BKA, right arm AVF) - Lab 11/11/18 14:33 11/11/18 14:33 Most recent lab results Calcium 9.1 mg/dL (8.4-10.2) 11/11/18 14:33 Magnesium 2.40 mg/dL (1.7-2.3) H 11/10/18 09:17 Medications & Allergies - Medications Allergies/Adverse Reactions: Allergies Penicillins Allergy (Verified 11/10/18 09:47) Unknown Home Medications: Home Medications Medication Instructions Recorded Confirmed Last Taken Type Ascorbic Acid [Vitamin C] 500 mg PO BID 12/27/16 11/10/18 Unknown History AtorvaSTATin [Lipitor] 40 mg PO QHS 12/27/16 11/10/18 Unknown History Ferrous Sulfate [Feosol 325 MG tab] 325 mg PO BID 12/27/16 11/10/18 Unknown History Folic Acid [Folvite] 1 mg PO QDAY 12/27/16 11/10/18 Unknown History Omeprazole Magnesium [PriLOSEC Otc] 20 mg PO QDAY 12/27/16 11/10/18 Unknown History Ondansetron [Zofran TAB] 4 mg PO Q4H PRN 12/27/16 11/10/18 Unknown History Thiamine [Vitamin B-1] 100 mg PO QDAY 12/27/16 11/10/18 Unknown History Vit B Comp No.3/Folic/C/Biotin 1 each PO DAILY 12/27/16 11/10/18 Unknown History [Cheryl-Pricilla Rx Tablet] diphenhydrAMINE [Benadryl CAP] 25 mg PO DAILY PRN 12/27/16 11/10/18 Unknown History Pantoprazole [Protonix TAB] 40 mg PO QDAY #30 tablet 02/04/17 11/10/18 Unknown Rx Acetaminophen 650 mg PO Q4H PRN 02/14/17 11/10/18 Unknown History Insulin Lispro [HumaLOG VIAL] 0 unit SQ BID 02/14/17 11/10/18 Unknown History Insulin Lispro [Humalog 100 20 units SQ AC 02/14/17 11/10/18 Unknown History UNITS/ML Kwikpen] Cinacalcet [Sensipar] 30 mg PO QDAY 11/10/18 11/10/18 Unknown History Donepezil HCl 10 mg PO QHS 11/10/18 11/10/18 Unknown History Insulin Glargine,Hum.rec.anlog 44 units SQ QHS 11/10/18 11/10/18 Unknown History [Lantus] Losartan Potassium 100 mg PO QHS 11/10/18 11/10/18 Unknown History Metoprolol Tartrate 75 mg PO BID 11/10/18 11/10/18 Unknown History Ranitidine HCl [Zantac 150 MG TAB] 150 mg PO QHS 11/10/18 11/10/18 Unknown History Sevelamer Carbonate 2,400 mg PO TIDWM 11/10/18 11/10/18 Unknown History amLODIPine [Norvasc] 10 mg PO DAILY 11/10/18 11/10/18 Unknown History cloNIDine-TTS PATCH [Catapres-Tts 1 patch TD Q7D 11/10/18 11/10/18 Unknown History Patch] levETIRAcetam [Keppra TAB] 250 mg PO BID 11/10/18 11/10/18 Unknown History Active Medications: Generic Name Dose Route Start Last Admin Trade Name Freq PRN Reason Stop Dose Admin Ascorbic Acid 500 mg 11/10/18 22:00 11/11/18 22:43 Vitamin C PO 500 mg BID LUZ Administration Atorvastatin Calcium 40 mg 11/10/18 22:00 11/11/18 22:43 Lipitor PO 40 mg QHS LUZ Administration Cinacalcet 30 mg 11/11/18 10:00 11/11/18 09:06 Sensipar PO 30 mg QDAY LUZ Administration Donepezil HCl 10 mg 11/10/18 22:00 11/11/18 22:43 Aricept PO 10 mg QHS LUZ Administration Folic Acid 1 mg 11/11/18 10:00 11/11/18 09:06 Folvite PO 1 mg QDAY LUZ Administration Heparin Sodium (Porcine) 5,000 unit 11/10/18 22:00 11/11/18 23:11 Heparin SUB-Q Not Given Q8HR LUZ Sodium Chloride 100 mls @ 999 mls/hr 11/10/18 12:02 Nacl 0.9% IV CORBY PRN Hypotension Levofloxacin/Dextrose 500 mg in 100 mls @ 100 mls/hr 11/10/18 21:00 11/10/18 21:54 Levaquin 500mg/100ml IV 100 mls/hr Q48H LUZ Administration Protocol Levetiracetam 250 mg 11/10/18 22:00 11/11/18 22:43 Keppra PO 250 mg BID LUZ Administration Pantoprazole Sodium 40 mg 11/11/18 10:00 11/11/18 09:05 Protonix PO 40 mg QDAY LUZ Administration Sevelamer Carbonate 2,400 mg 11/10/18 17:00 11/11/18 18:28 Renvela PO 2,400 mg TIDWM LUZ Administration
[2018-11-12] MEDS: HEPARIN SUB-Q SCH ×3 (07:24→23:02)
[2018-11-12] MEDS: RENVELA PO SCH ×3 (08:00→18:09)
[2018-11-12] MEDS: SENSIPAR PO SCH (10:00)
[2018-11-12] MEDS: FOLVITE PO SCH (10:00)
[2018-11-12] MEDS: KEPPRA PO SCH ×3 (10:02→23:27)
[2018-11-12] MEDS: VITAMIN C PO SCH ×3 (10:02→23:38)
[2018-11-12] MEDS: PROTONIX PO SCH (10:09)
[2018-11-12 12:57] LABS: Basophils % (Auto) 0.6 % (0.0-1.8); Eosinophils # (Auto) 0.2 K/mm3 (0.0-0.4); Eosinophils % (Auto) 3.6 % (0.0-4.3); Hematocrit 34.5 % (35.5-45.6); Hemoglobin 11.3 gm/dl (11.8-15.2); Lymphocytes # (Auto) 1.4 K/mm3 (1.2-5.4); Lymphocytes % (Auto) 21.7 % (13.4-35.0); Mean Corpuscular HGB Conc 33 % (32-34); Mean Corpuscular Volume 80 fl (84-94); Monocytes # (Auto) 0.3 K/mm3 (0.0-0.8); Monocytes % (Auto) 4.6 % (0.0-7.3); Platelet Count 187 K/mm3 (140-440); Red Cell Distribution Width 15.4 % (13.2-15.2)
[2018-11-12 13:19] LABS: Calcium 8.7 mg/dL (8.4-10.2)
--- NOTE | 2018-11-12 17:10 | Discharge Summary ---
Providers - Providers Date of Admission: 11/10/18 10:09 Date of discharge: 11/12/18 Attending physician: IBRAHIMA PERKINS 11/10/18 11:10 Consult to Physician [CONS] Routine Comment: Consulting Provider: FELIZ ELLISON Physician Instructions: Reason For Exam: ESRD on HD, lactic acidosis, hypoglycemia 11/10/18 11:37 Consult to Physician [CONS] Routine Comment: Consulting Provider: HUGO DOTSON Physician Instructions: Reason For Exam: ESRD, lactic acidosis, hypothermia Primary care physician: EDGE FINISHER Hospitalization Condition: Stable Hospital course: Patient 58-year-old male well known to myself with a history of diabetes frequent hypoglycemia, end-stage liver disease and hypertension presents this admission [facility] to [facility]. The etiology well known to me as patient decreased appetite. When he eats he has no problems with hypoglycemia. Also sepsis can cause his blood sugar to go down sometimes. At present patient monitored 2440 hrs. hemoglobin was stable at his baseline no further episodes of hypoglycemia. He should be discharged in stable condition. Blood cultures no growth after 48 hours. Disposition: DC/TX-03 SNF [facility] - Discharge Diagnoses (1) SIRS (systemic inflammatory response syndrome) Status: Acute (2) End stage renal failure on dialysis Status: Acute (3) Hypoglycemia due to type 1 diabetes mellitus Status: Acute Core Measure Documentation - Palliative Care Palliative Care/ Comfort Measures: Not Applicable - Core Measures Any of the following diagnoses?: none Exam - Constitutional Vitals: Temp Pulse Resp BP Pulse Ox 98.9 F 86 18 165/93 98 11/12/18 05:33 11/12/18 05:33 11/12/18 05:33 11/12/18 05:33 11/12/18 05:33 General appearance: Present: no acute distress, well-nourished - EENT Eyes: Present: PERRL ENT: hearing intact, clear oral mucosa - Neck Neck: Present: supple, normal ROM - Respiratory Respiratory effort: normal - Extremities Extremities: pulses symmetrical, No edema Peripheral Pulses: within normal limits - Abdominal General gastrointestinal: Present: soft, non-tender, non-distended, normal bowel sounds - Musculoskeletal Musculoskeletal: generalized weakness - Psychiatric Psychiatric: appropriate mood/affect, cooperative - Neurologic Neurologic: CNII-XII intact, moves all extremities Plan Activity: fall precautions Weight Bearing Status: Partial Weight Bearing Diet: diabetic Follow up with: PRIMARY CARE, [Primary Care Provider] - 3-5 Days
[2018-11-12] MEDS ORDERED: VANCOMYCIN/NS 1 GM/250 ML 1 GM/250 ML BAG IV SCH (20:00)
[2018-11-12 22:30] VITALS: BP 122/79
--- NOTE | 2018-11-12 22:41 | XRay Report ---
PROCEDURE: XR CHEST 1V AP TECHNIQUE: Chest radiograph single view. HISTORY: repeat for pnuemonia COMPARISONS: 11/10/2018. . FINDINGS: Heart: Normal. Mediastinum/Vessels: Normal. Lungs/Pleural space: Normal. Bony thorax: No acute osseous abnormality. Life support devices: None. IMPRESSION: No acute cardiopulmonary abnormality. This document is electronically signed by Tammi Han MD., November 12 2018 05:26:33 PM ET
[2018-11-12] MEDS ORDERED: LOPRESSOR PO ONE (23:15)
[2018-11-12] MEDS: ARICEPT PO SCH ×2 (23:16→23:39)
[2018-11-12] MEDS: LEVAQUIN 500MG/100ML 500 MG/100 ML BAG IV SCH (23:26)
[2018-11-13] MEDS: HEPARIN SUB-Q SCH (06:20)
[2018-11-13] MEDS: RENVELA PO SCH ×2 (08:00→12:00)
--- NOTE | 2018-11-13 08:55 | Progress Note ---
Assessment and Plan Cultures: 11/10/18 Blood: in progress A/P: 66-year-old resident with a past medical history of ESRD on HD, diabetes and left sided weakness,admitted with: 1. SIRS : Resolved. in the setting of severe acidosis from uncontrolled diabetes and associated hypoglycemia. Chest x-ray without any evidence of pneumonia, no fever + hypothermia, temperature on admission 94.7, no le ukocytosis. Blood cultures were drawn and are pending. Currently being treated with vancomycin CRP .20 2. Metabolic acidosis: Lactic acidosis 3. Diabetes mellitus type 2 uncontrolled: On admission, BG in the 20's, was given D50. Responded favorably. 4. ESRD on HD: antibiotics renally dosed, Right AVF HD TTS- Nephrology following 5. Peripheral vascular disease. 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 6. Metabolic Encephalopathy: Continuing, etiology most likely hypoglycemia, unsure of baseline. 7. Penicillin Allergy: unknown cause, poor historian Plan: -Discontinue Vancomycin PK dosing, D2 -continue Levaquin 500 mg IV every 48 -Clinically stable, can be discharged from ID standpoint on levaquin 500 mg PO every 48h, total 7 days ending 11-13-18 ID is signing off [facility] M: [id number] O:[phone] Subjective Date of service: 11/13/18 Interval history: Patient seen and examined, stated that he was feeling better today, more alert. no fevers. Objective - Exam Narrative Exam: Constitutional: Awake, alert, No acute distress, Head, Ears, Nose: Normocephalic, atraumatic. External ears, nose normal Eyes: Conjunctivae/corneas clear. No icterus. No ptosis. Neck: Supple, no meningeal signs Oral: dentition poor. no thrush Cardiovascular: S1, S2 normal. Respiratory: Good air entry, clear to auscultation bilaterally GI: Soft, non-tender; bowel sounds normal. No peritoneal signs Musculoskeletal: No pedal edema, no cyanosis, Left BKA, 10 years ago, + left hemiparesis , R AVF Skin: No rash or abscess. Hem/Lymphatic: No palpable cervical or supraclavicular nodes. No lymphangitis Psych: Mood ok. Affect flat Neurological: More alert today. - Constitutional Vitals: Vital Signs Temp Pulse Resp BP Pulse Ox 97.9 F 119 H 24 122/79 95 11/12/18 22:29 11/12/18 22:29 11/12/18 22:29 11/12/18 22:29 11/12/18 22:29 Temperature -Last 24 Hours Temperature 97.9 F Temperature 97.9 F Temperature 98.7 F Temperature 98.1 F - Labs CBC & Chem 7: 11/12/18 12:50 11/12/18 12:50 Labs: Abnormal lab results 11/12/18 11/12/18 11/12/18 Range/Units 12:50 12:50 16:33 Hgb 11.3 L (11.8-15.2) gm/dl Hct 34.5 L (35.5-45.6) % MCV 80 L (84-94) fl MCH 26 L (28-32) pg RDW 15.4 H (13.2-15.2) % BUN 41 H (9-20) mg/dL Creatinine 7.9 H (0.8-1.5) mg/dL Glucose 152 H (75-100) mg/dL POC Glucose 168 H (70-105) 11/12/18 Range/Units 21:02 Hgb (11.8-15.2) gm/dl Hct (35.5-45.6) % MCV (84-94) fl MCH (28-32) pg RDW (13.2-15.2) % BUN (9-20) mg/dL Creatinine (0.8-1.5) mg/dL Glucose (75-100) mg/dL POC Glucose 172 H (70-105)
[2018-11-13] MEDS: FOLVITE PO SCH (10:00)
[2018-11-13] MEDS: SENSIPAR PO SCH (10:00)
[2018-11-13] MEDS: PROTONIX PO SCH (10:00)
[2018-11-13] MEDS: KEPPRA PO SCH (10:00)
--- NOTE | 2018-11-13 10:50 | Discharge Summary ---
Providers - Providers Date of Admission: 11/10/18 10:09 Date of discharge: 11/13/18 Attending physician: IBRAHIMA PERKINS 11/10/18 11:10 Consult to Physician [CONS] Routine Comment: Consulting Provider: FELIZ ELLISON Physician Instructions: Reason For Exam: ESRD on HD, lactic acidosis, hypoglycemia 11/10/18 11:37 Consult to Physician [CONS] Routine Comment: Consulting Provider: HUGO DOTSON Physician Instructions: Reason For Exam: ESRD, lactic acidosis, hypothermia Primary care physician: INVESTMENT SALES ASSISTANT Hospitalization Condition: Stable Disposition: DC/TX-03 SNF [facility] - Discharge Diagnoses (1) SIRS (systemic inflammatory response syndrome) Status: Acute (2) End stage renal failure on dialysis Status: Acute (3) Hypoglycemia due to type 1 diabetes mellitus Status: Acute Core Measure Documentation - Palliative Care Palliative Care/ Comfort Measures: Not Applicable - Core Measures Any of the following diagnoses?: none Exam - Constitutional Vitals: Temp Pulse Resp BP Pulse Ox 97.9 F 119 H 24 122/79 95 11/12/18 22:29 11/12/18 22:29 11/12/18 22:29 11/12/18 22:29 11/12/18 22:29 General appearance: Present: no acute distress, well-nourished - EENT Eyes: Present: PERRL ENT: hearing intact, clear oral mucosa - Neck Neck: Present: supple, normal ROM - Respiratory Respiratory effort: normal Respiratory: bilateral: CTA - Cardiovascular Heart Sounds: Present: S1 & S2. Absent: rub, click - Extremities Extremities: pulses symmetrical, No edema Peripheral Pulses: within normal limits - Abdominal General gastrointestinal: Present: soft, non-tender, non-distended, normal bowel sounds Male genitourinary: Present: normal - Integumentary Integumentary: Present: clear, warm, dry - Musculoskeletal Musculoskeletal: gait normal, strength equal bilaterally - Psychiatric Psychiatric: appropriate mood/affect, intact judgment & insight - Neurologic Neurologic: CNII-XII intact, moves all extremities Plan Activity: no restrictions Follow up with: PRIMARY CARE, [Primary Care Provider] - 3-5 Days
[2018-11-13] MEDS: VITAMIN C PO SCH (12:00)
--- NOTE | 2018-11-13 13:52 | Progress Note ---
Assessment and Plan 1. ESRD: Continue hemodialysis three times a week, TTS schedule. 2. Hypoglycemia: Blood sugar is better. 3. DM type 2. 4. HTN: Monitor. 5. SIRS. Subjective Date of service: 11/13/18 Interval history: Patient is feeling better. Objective - General Appearance General appearance: well-developed, appears stated age, other (not in distress) EENT: ATNC, PERRL, hearing intact, vision intact Neck: supple Respiratory: Present: Clear to Ascultation Cardiology: regular, S1S2, no murmurs Gastrointestinal: normoactive bowel sounds, no tenderness, no distended Integumentary: no rash, warm and dry Neurologic: no focal deficit, no asterixis, disoriented Musculoskeletal: other (no edema, left BKA, right arm AVF) Psychiatric: cooperative - Lab 11/12/18 12:50 11/12/18 12:50 Most recent lab results Calcium 8.7 mg/dL (8.4-10.2) 11/12/18 12:50 Magnesium 2.40 mg/dL (1.7-2.3) H 11/10/18 09:17 Medications & Allergies - Medications Allergies/Adverse Reactions: Allergies Penicillins Allergy (Verified 11/10/18 09:47) Unknown Home Medications: Home Medications Medication Instructions Recorded Confirmed Last Taken Type Ascorbic Acid [Vitamin C] 500 mg PO BID 12/27/16 11/10/18 Unknown History AtorvaSTATin [Lipitor] 40 mg PO QHS 12/27/16 11/10/18 Unknown History Ferrous Sulfate [Feosol 325 MG tab] 325 mg PO BID 12/27/16 11/10/18 Unknown History Folic Acid [Folvite] 1 mg PO QDAY 12/27/16 11/10/18 Unknown History Omeprazole Magnesium [PriLOSEC Otc] 20 mg PO QDAY 12/27/16 11/10/18 Unknown History Ondansetron [Zofran TAB] 4 mg PO Q4H PRN 12/27/16 11/10/18 Unknown History Thiamine [Vitamin B-1] 100 mg PO QDAY 12/27/16 11/10/18 Unknown History Vit B Comp No.3/Folic/C/Biotin 1 each PO DAILY 12/27/16 11/10/18 Unknown History [Cheryl-Pricilla Rx Tablet] diphenhydrAMINE [Benadryl CAP] 25 mg PO DAILY PRN 12/27/16 11/10/18 Unknown History Pantoprazole [Protonix TAB] 40 mg PO QDAY #30 tablet 02/04/17 11/10/18 Unknown Rx Acetaminophen 650 mg PO Q4H PRN 02/14/17 11/10/18 Unknown History Insulin Lispro [HumaLOG VIAL] 0 unit SQ BID 02/14/17 11/10/18 Unknown History Insulin Lispro [Humalog 100 20 units SQ AC 02/14/17 11/10/18 Unknown History UNITS/ML Kwikpen] Cinacalcet [Sensipar] 30 mg PO QDAY 11/10/18 11/10/18 Unknown History Donepezil HCl 10 mg PO QHS 11/10/18 11/10/18 Unknown History Insulin Glargine,Hum.rec.anlog 44 units SQ QHS 11/10/18 11/10/18 Unknown History [Lantus] Losartan Potassium 100 mg PO QHS 11/10/18 11/10/18 Unknown History Metoprolol Tartrate 75 mg PO BID 11/10/18 11/10/18 Unknown History Ranitidine HCl [Zantac 150 MG TAB] 150 mg PO QHS 11/10/18 11/10/18 Unknown History Sevelamer Carbonate 2,400 mg PO TIDWM 11/10/18 11/10/18 Unknown History amLODIPine [Norvasc] 10 mg PO DAILY 11/10/18 11/10/18 Unknown History cloNIDine-TTS PATCH [Catapres-Tts 1 patch TD Q7D 11/10/18 11/10/18 Unknown History Patch] levETIRAcetam [Keppra TAB] 250 mg PO BID 11/10/18 11/10/18 Unknown History levETIRAcetam [Keppra TAB] 250 mg PO BID tablet 11/12/18 Unknown Rx levoFLOXacin [Levaquin TAB] 500 mg PO Q48HR 7 Days tablet 11/13/18 Unknown Rx Active Medications: Generic Name Dose Route Start Last Admin Trade Name Freq PRN Reason Stop Dose Admin Ascorbic Acid 500 mg 11/10/18 22:00 11/13/18 12:00 Vitamin C PO Not Given BID LUZ Atorvastatin Calcium 40 mg 11/10/18 22:00 11/12/18 23:40 Lipitor PO Not Given QHS [facility] Cinacalcet 30 mg 11/11/18 10:00 11/13/18 10:00 Sensipar PO Not Given QDAY [facility] Donepezil HCl 10 mg 11/10/18 22:00 11/12/18 23:39 Aricept PO Not Given QHS [facility] Folic Acid 1 mg 11/11/18 10:00 11/13/18 10:00 Folvite PO Not Given QDAY [facility] Heparin Sodium (Porcine) 5,000 unit 11/10/18 22:00 11/13/18 06:20 Heparin SUB-Q Not Given Q8HR [facility] Sodium Chloride 100 mls @ 999 mls/hr 11/10/18 12:02 Nacl 0.9% IV CORBY PRN Hypotension Levofloxacin/Dextrose 500 mg in 100 mls @ 100 mls/hr 11/10/18 21:00 11/12/18 23:26 Levaquin 500mg/100ml IV Not Given Q48H [facility] Protocol Levetiracetam 250 mg 11/10/18 22:00 11/13/18 10:00 Keppra PO Not Given BID [facility] Pantoprazole Sodium 40 mg 11/11/18 10:00 11/13/18 10:00 Protonix PO Not Given QDAY [facility] Sevelamer Carbonate 2,400 mg 11/10/18 17:00 11/13/18 12:00 Renvela PO Not Given TIDWM [facility]
== END 2018-11-13 13:15 | DRG 70 ==
LOC: ED 08:54 → 3A 10:09
PROVIDERS: ADMIT Internal Medicine; ATTEND Internal Medicine
PROC: 3E0234Z Introduction of Serum, Toxoid and Vaccine into Muscle, Percutaneous Approach (ICD-10-PCS; principal; 2018-11-10)
PROC: 5A1D70Z Performance of Urinary Filtration, Intermittent, Less than 6 Hours Per Day (ICD-10-PCS; 2018-11-10)
PROC: 5A1D70Z Performance of Urinary Filtration, Intermittent, Less than 6 Hours Per Day (ICD-10-PCS; 2018-11-12)
DX: G93.41 Metabolic encephalopathy (principal); N18.6 End stage renal disease; E10.649 Type 1 diabetes mellitus with hypoglycemia without coma; R65.10 Systemic inflammatory response syndrome (SIRS) of non-infectious origin without acute organ dysfunction; I12.0 Hypertensive chronic kidney disease with stage 5 chronic kidney disease or end stage renal disease; E10.22 Type 1 diabetes mellitus with diabetic chronic kidney disease; K21.9 Gastro-esophageal reflux disease without esophagitis; F17.200 Nicotine dependence, unspecified, uncomplicated; R68.0 Hypothermia, not associated with low environmental temperature; F03.90 Unspecified dementia, unspecified severity, without behavioral disturbance, psychotic disturbance, mood disturbance, and anxiety; G40.909 Epilepsy, unspecified, not intractable, without status epilepticus; E10.51 Type 1 diabetes mellitus with diabetic peripheral angiopathy without gangrene; J44.9 Chronic obstructive pulmonary disease, unspecified; Z89.512 Acquired absence of left leg below knee; Z88.0 Allergy status to penicillin; Z79.899 Other long term (current) drug therapy; Z79.4 Long term (current) use of insulin; Z87.442 Personal history of urinary calculi; Z23 Encounter for immunization
CPT/HCPCS: 36415; 71045; 80048; 80076; 82140; 82962; 83735; 83880; 84311; 85025; 85610; 85730; 86140; 87040; 87116; 90686; 90732; G0378; A9270-GY; J1644; J1815; J1956; J2185; J3370; J7030; J7040

== ENCOUNTER 2019-05-07 17:12 | Inpatient (IN) | payer MEDICAID ==
[2019-05-07] MEDS ORDERED: VANCOMYCIN/NS 1 GM/250 ML 1 GM/250 ML BAG IV ONE (18:16)
--- NOTE | 2019-05-07 18:38 | Emergency Department Report ---
ED Extremity Problem HPI - General Chief complaint: Wound/Laceration Stated complaint: WOUND ON FOOT Time Seen by Provider: 05/07/19 17:50 Source: family, EMS Mode of arrival: Stretcher Limitations: No Limitations - History of Present Illness Initial comments: 58-year-old male with past medical history PAD, end stage disease on dialysis Wednesday, , and Wednesday, dementia, diabetes, seizures, asthma, and previous left BKA and continued smoking/tobacco use presents [facility] the hospital [facility] for right right toe with drainage. Family member at the bedside states that patient has been receiving dressing for the wounds on his foot the last 3 weeks. She has not seen with the foot looks likes without the dressing. Patient states he is unsure if he has been treated with antibiotics. He denies any pain or fevers. Last dialysis was yesterday. - Related Data Home Medications Medication Instructions Recorded Confirmed Last Taken Ascorbic Acid [Vitamin C] 500 mg PO BID 12/27/16 11/10/18 Unknown AtorvaSTATin [Lipitor] 40 mg PO QHS 12/27/16 11/10/18 Unknown Ferrous Sulfate [Feosol 325 MG tab] 325 mg PO BID 12/27/16 11/10/18 Unknown Folic Acid [Folvite] 1 mg PO QDAY 12/27/16 11/10/18 Unknown Omeprazole Magnesium [PriLOSEC Otc] 20 mg PO QDAY 12/27/16 11/10/18 Unknown Ondansetron [Zofran TAB] 4 mg PO Q4H PRN 12/27/16 11/10/18 Unknown Thiamine [Vitamin B-1] 100 mg PO QDAY 12/27/16 11/10/18 Unknown Vit B Comp No.3/Folic/C/Biotin 1 each PO DAILY 12/27/16 11/10/18 Unknown [Cheryl-Pricilla Rx Tablet] diphenhydrAMINE [Benadryl CAP] 25 mg PO DAILY PRN 12/27/16 11/10/18 Unknown Acetaminophen 650 mg PO Q4H PRN 02/14/17 11/10/18 Unknown Insulin Lispro [HumaLOG VIAL] 0 unit SQ BID 02/14/17 11/10/18 Unknown Insulin Lispro [Humalog 100 20 units SQ AC 02/14/17 11/10/18 Unknown UNITS/ML Kwikpen] Cinacalcet [Sensipar] 30 mg PO QDAY 11/10/18 11/10/18 Unknown Donepezil HCl 10 mg PO QHS 11/10/18 11/10/18 Unknown Insulin Glargine,Hum.rec.anlog 44 units SQ QHS 11/10/18 11/10/18 Unknown [Lantus] Losartan Potassium 100 mg PO QHS 11/10/18 11/10/18 Unknown Metoprolol Tartrate 75 mg PO BID 11/10/18 11/10/18 Unknown Sevelamer Carbonate 2,400 mg PO TIDWM 11/10/18 11/10/18 Unknown amLODIPine [Norvasc] 10 mg PO DAILY 11/10/18 11/10/18 Unknown cloNIDine-TTS PATCH [Catapres-Tts 1 patch TD Q7D 11/10/18 11/10/18 Unknown 0.1MG Patch] levETIRAcetam [Keppra TAB] 250 mg PO BID 11/10/18 11/10/18 Unknown raNITIdine HCl [Zantac] 150 mg PO QHS 11/10/18 11/10/18 Unknown Previous Rx's Medication Instructions Recorded Last Taken Type Pantoprazole [Protonix TAB] 40 mg PO QDAY #30 tablet 02/04/17 Unknown Rx levETIRAcetam [Keppra TAB] 250 mg PO BID tablet 11/12/18 Unknown Rx levoFLOXacin [Levaquin TAB] 500 mg PO Q48HR 7 Days tablet 11/13/18 Unknown Rx Allergies Allergy/AdvReac Type Severity Reaction Status Date / Time Penicillins Allergy Unknown Verified 11/10/18 09:47 ED Review of Systems ROS: Stated complaint: WOUND ON FOOT Other details as noted in HPI Comment: All other systems reviewed and negative ED Past Medical Hx - Past Medical History Hx Hypertension: Yes Hx CVA: No Hx Heart Attack/AMI: No Hx Congestive Heart Failure: No Hx Diabetes: Yes Hx Deep Vein Thrombosis: No Hx GERD: Yes Hx Liver Disease: No Hx Renal Disease: Yes Hx Headaches / Migraines: No Hx Seizures: Yes (on meds) Hx Kidney Stones: Yes Hx Asthma: Yes Hx COPD: No Hx Dementia: Yes Hx HIV: No Additional medical history: Anemia - Surgical History Additional Surgical History: Left BKA, 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] - Social History Smoking Status: Never Smoker - Medications Home Medications: Home Medications Medication Instructions Recorded Confirmed Last Taken Type Ascorbic Acid [Vitamin C] 500 mg PO BID 12/27/16 11/10/18 Unknown History AtorvaSTATin [Lipitor] 40 mg PO QHS 12/27/16 11/10/18 Unknown History Ferrous Sulfate [Feosol 325 MG tab] 325 mg PO BID 12/27/16 11/10/18 Unknown History Folic Acid [Folvite] 1 mg PO QDAY 12/27/16 11/10/18 Unknown History Omeprazole Magnesium [PriLOSEC Otc] 20 mg PO QDAY 12/27/16 11/10/18 Unknown History Ondansetron [Zofran TAB] 4 mg PO Q4H PRN 12/27/16 11/10/18 Unknown History Thiamine [Vitamin B-1] 100 mg PO QDAY 12/27/16 11/10/18 Unknown History Vit B Comp No.3/Folic/C/Biotin 1 each PO DAILY 12/27/16 11/10/18 Unknown History [Cheryl-Pricilla Rx Tablet] diphenhydrAMINE [Benadryl CAP] 25 mg PO DAILY PRN 12/27/16 11/10/18 Unknown History Pantoprazole [Protonix TAB] 40 mg PO QDAY #30 tablet 02/04/17 11/10/18 Unknown Rx Acetaminophen 650 mg PO Q4H PRN 02/14/17 11/10/18 Unknown History Insulin Lispro [HumaLOG VIAL] 0 unit SQ BID 02/14/17 11/10/18 Unknown History Insulin Lispro [Humalog 100 20 units SQ AC 02/14/17 11/10/18 Unknown History UNITS/ML Kwikpen] Cinacalcet [Sensipar] 30 mg PO QDAY 11/10/18 11/10/18 Unknown History Donepezil HCl 10 mg PO QHS 11/10/18 11/10/18 Unknown History Insulin Glargine,Hum.rec.anlog 44 units SQ QHS 11/10/18 11/10/18 Unknown History [Lantus] Losartan Potassium 100 mg PO QHS 11/10/18 11/10/18 Unknown History Metoprolol Tartrate 75 mg PO BID 11/10/18 11/10/18 Unknown History Sevelamer Carbonate 2,400 mg PO TIDWM 11/10/18 11/10/18 Unknown History amLODIPine [Norvasc] 10 mg PO DAILY 11/10/18 11/10/18 Unknown History cloNIDine-TTS PATCH [Catapres-Tts 1 patch TD Q7D 11/10/18 11/10/18 Unknown History 0.1MG Patch] levETIRAcetam [Keppra TAB] 250 mg PO BID 11/10/18 11/10/18 Unknown History raNITIdine HCl [Zantac] 150 mg PO QHS 11/10/18 11/10/18 Unknown History levETIRAcetam [Keppra TAB] 250 mg PO BID tablet 11/12/18 Unknown Rx levoFLOXacin [Levaquin TAB] 500 mg PO Q48HR 7 Days tablet 11/13/18 Unknown Rx ED Physical Exam - General Limitations: No Limitations - Other Other exam information: General: No acute distress Head: Atraumatic Eyes: Normal appearance, Pupils equal and reactive to light, extraocular movements intact ENT: Normal oropharynx Neck: Normal appearance, no posterior or midline tenderness, no meningismus Chest: Clear to auscultation bilaterally, no wheezes, rales, or crackles CV: Regular rate and rhythm Abdomen: soft, nontender, nondistended, no rebound or guarding Back: Nontender Extremity: Left BKA. Patient has dry gangrene with black discoloration to all of his toes and distal right foot. There is ulceration and malodorous drainage to the right great toe. There is edema to the foot and distal leg. Positive warmth on palpation to the foot. Unable to palpate or auscultate DP pulse. Neuro: Alert and oriented 2 (not to year), speech clear, no gross motor or sensory deficit Skin: No rash, redness, warmth ED Course Vital Signs 05/07/19 05/07/19 05/07/19 17:47 17:50 18:00 Temperature 98.5 F Pulse Rate 70 84 70 Respiratory 19 18 17 Rate Blood Pressure 141/63 142/79 O2 Sat by Pulse 79 L 100 70 L Oximetry 05/07/19 05/07/19 05/07/19 18:01 18:15 18:30 Temperature Pulse Rate 67 66 Respiratory 13 12 Rate Blood Pressure 155/77 152/80 O2 Sat by Pulse 100 98 87 Oximetry 05/07/19 05/07/19 05/07/19 18:45 19:00 19:13 Temperature Pulse Rate 67 69 Respiratory 18 17 18 Rate Blood Pressure 152/80 158/68 O2 Sat by Pulse 99 100 Oximetry 05/07/19 05/07/19 05/07/19 19:15 19:30 19:45 Temperature Pulse Rate 67 68 67 Respiratory 13 14 18 Rate Blood Pressure 167/82 169/74 160/72 O2 Sat by Pulse 100 100 100 Oximetry 05/07/19 05/07/19 05/07/19 20:00 20:15 20:30 Temperature Pulse Rate 67 70 69 Respiratory 15 13 12 Rate Blood Pressure 164/77 164/77 178/76 O2 Sat by Pulse 100 99 90 Oximetry 05/07/19 05/07/19 05/07/19 20:45 21:00 21:15 Temperature Pulse Rate 67 Respiratory 14 10 L 18 Rate Blood Pressure 178/76 160/74 146/72 O2 Sat by Pulse 96 100 100 Oximetry 05/07/19 05/07/19 21:30 21:45 Temperature Pulse Rate Respiratory 13 14 Rate Blood Pressure 154/71 147/75 O2 Sat by Pulse 100 99 Oximetry - Consultations Consultation #1: 05/07/19 21:45 case d/w Dr Quiroz with vascular, will consult ED Medical Decision Making - Lab Data Result diagrams: 05/07/19 18:39 05/07/19 18:39 Lab Results 05/07/19 05/07/19 05/07/19 Range/Units 18:39 18:39 18:39 WBC 8.4 (4.5-11.0) K/mm3 RBC 4.13 (3.65-5.03) M/mm3 Hgb 11.2 L (11.8-15.2) gm/dl Hct 35.1 L (35.5-45.6) % MCV 85 (84-94) fl MCH 27 L (28-32) pg MCHC 32 (32-34) % RDW 17.5 H (13.2-15.2) % Plt Count 302 (140-440) K/mm3 Add Manual Diff Complete Total Counted 100 Seg Neuts % (Manual) 62.0 (40.0-70.0) % Band Neutrophils % 0 % Lymphocytes % (Manual) 22.0 (13.4-35.0) % Reactive Lymphs % (Man) 0 % Monocytes % (Manual) 10.0 H (0.0-7.3) % Eosinophils % (Manual) 6.0 H (0.0-4.3) % Basophils % (Manual) 0 (0.0-1.8) % Metamyelocytes % 0 % Myelocytes % 0 % Promyelocytes % 0 % Blast Cells % 0 % Nucleated RBC % Not Reportable Seg Neutrophils # Man 5.2 (1.8-7.7) K/mm3 Band Neutrophils # 0.0 K/mm3 Lymphocytes # (Manual) 1.8 (1.2-5.4) K/mm3 Abs React Lymphs (Man) 0.0 K/mm3 Monocytes # (Manual) 0.8 (0.0-0.8) K/mm3 Eosinophils # (Manual) 0.5 H (0.0-0.4) K/mm3 Basophils # (Manual) 0.0 (0.0-0.1) K/mm3 Metamyelocytes # 0.0 K/mm3 Myelocytes # 0.0 K/mm3 Promyelocytes # 0.0 K/mm3 Blast Cells # 0.0 K/mm3 WBC Morphology Not Reportable Hypersegmented Neuts Not Reportable Hyposegmented Neuts Not Reportable Hypogranular Neuts Not Reportable Smudge Cells Not Reportable Toxic Granulation Not Reportable Toxic Vacuolation Not Reportable Dohle Bodies Not Reportable Pelger-Huet Anomaly Not Reportable Aiden Rods Not Reportable Platelet Estimate Cons Clumped Platelets Not Reportable Plt Clumps, EDTA Not Reportable Large Platelets 1+ Giant Platelets Not Reportable Platelet Satelliting Not Reportable Plt Morphology Comment Not Reportable RBC Morphology Not Reportable Dimorphic RBCs Not Reportable Polychromasia Not Reportable Hypochromasia Not Reportable Poikilocytosis 1+ Anisocytosis 1+ Microcytosis Not Reportable Macrocytosis Not Reportable Spherocytes Not Reportable Pappenheimer Bodies Not Reportable Sickle Cells Not Reportable Target Cells Not Reportable Tear Drop Cells Not Reportable Ovalocytes Not Reportable Helmet Cells Not Reportable Chance-Funk Bodies Not Reportable [place] Rings Not Reportable [place] Cells Not Reportable Bite Cells Not Reportable Crenated Cell Not Reportable Elliptocytes Not Reportable Acanthocytes (Spur) Not Reportable Rouleaux Not Reportable Hemoglobin C Crystals Not Reportable Schistocytes Not Reportable Malaria parasites Not Reportable Yoan Bodies Not Reportable Hem Pathologist Commnt No VBG pH (7.320-7.420) Sodium 135 L (137-145) mmol/L Potassium 4.6 (3.6-5.0) mmol/L Chloride 92.1 L (98-107) mmol/L Carbon Dioxide 24 (22-30) mmol/L Anion Gap 24 mmol/L BUN 31 H (9-20) mg/dL Creatinine 6.9 H (0.8-1.5) mg/dL Estimated GFR 10 ml/min BUN/Creatinine Ratio 4 % Glucose 193 H (75-100) mg/dL Lactic Acid 2.80 H* (0.7-2.0) mmol/L Calcium 10.7 H (8.4-10.2) mg/dL Total Bilirubin 0.20 (0.1-1.2) mg/dL AST 17 (5-40) units/L ALT 8 (7-56) units/L Alkaline Phosphatase 136 H (35-129) units/L Total Protein 8.7 H (6.3-8.2) g/dL Albumin 4.2 (3.9-5) g/dL Albumin/Globulin Ratio 0.9 % 05/07/19 05/07/19 Range/Units 18:39 20:00 WBC (4.5-11.0) K/mm3 RBC (3.65-5.03) M/mm3 Hgb (11.8-15.2) gm/dl Hct (35.5-45.6) % MCV (84-94) fl MCH (28-32) pg MCHC (32-34) % RDW (13.2-15.2) % Plt Count (140-440) K/mm3 Add Manual Diff Total Counted Seg Neuts % (Manual) (40.0-70.0) % Band Neutrophils % % Lymphocytes % (Manual) (13.4-35.0) % Reactive Lymphs % (Man) % Monocytes % (Manual) (0.0-7.3) % Eosinophils % (Manual) (0.0-4.3) % Basophils % (Manual) (0.0-1.8) % Metamyelocytes % % Myelocytes % % Promyelocytes % % Blast Cells % % Nucleated RBC % Seg Neutrophils # Man (1.8-7.7) K/mm3 Band Neutrophils # K/mm3 Lymphocytes # (Manual) (1.2-5.4) K/mm3 Abs React Lymphs (Man) K/mm3 Monocytes # (Manual) (0.0-0.8) K/mm3 Eosinophils # (Manual) (0.0-0.4) K/mm3 Basophils # (Manual) (0.0-0.1) K/mm3 Metamyelocytes # K/mm3 Myelocytes # K/mm3 Promyelocytes # K/mm3 Blast Cells # K/mm3 WBC Morphology Hypersegmented Neuts Hyposegmented Neuts Hypogranular Neuts Smudge Cells Toxic Granulation Toxic Vacuolation Dohle Bodies Pelger-Huet Anomaly Aiden Rods Platelet Estimate Clumped Platelets Plt Clumps, EDTA Large Platelets Giant Platelets Platelet Satelliting Plt Morphology Comment RBC Morphology Dimorphic RBCs Polychromasia Hypochromasia Poikilocytosis Anisocytosis Microcytosis Macrocytosis Spherocytes Pappenheimer Bodies Sickle Cells Target Cells Tear Drop Cells Ovalocytes Helmet Cells Chance-Funk Bodies [place] Rings [place] Cells Bite Cells Crenated Cell Elliptocytes Acanthocytes (Spur) Rouleaux Hemoglobin C Crystals Schistocytes Malaria parasites Yoan Bodies Hem Pathologist Commnt VBG pH 7.269 L (7.320-7.420) Sodium (137-145) mmol/L Potassium (3.6-5.0) mmol/L Chloride (98-107) mmol/L Carbon Dioxide (22-30) mmol/L Anion Gap mmol/L BUN (9-20) mg/dL Creatinine (0.8-1.5) mg/dL Estimated GFR ml/min BUN/Creatinine Ratio % Glucose (75-100) mg/dL Lactic Acid 2.10 H* (0.7-2.0) mmol/L Calcium (8.4-10.2) mg/dL Total Bilirubin (0.1-1.2) mg/dL AST (5-40) units/L ALT (7-56) units/L Alkaline Phosphatase (35-129) units/L Total Protein (6.3-8.2) g/dL Albumin (3.9-5) g/dL Albumin/Globulin Ratio % - Radiology Data Radiology results: report reviewed RIGHT FOOT 3 VIEWS INDICATION / CLINICAL INFORMATION: dry gangrene with infection. COMPARISON: None available. FINDINGS: The bones are diffusely demineralized throughout the foot. There is diabetic atherosclerotic disease noted. There is diffuse soft tissue swelling throughout the great toe. There appears to be soft tissue ulceration associated with the great toe. There is some cortical irregularity and lucency involving the distal aspect of the proximal phalanx and the base of the distal phalanx of the great toe very suggestive for focal osteomyelitis. There is prominent soft tissue swelling along the dorsum of the foot. No acute fracture. IMPRESSION: Small areas of lucency and cortical irregularity involving the proximal and distal phalanx of the great toe adjacent to the interphalangeal joint, highly suggestive for osteomyelitis. Please correlate clinically. - Medical Decision Making pt tx with vancomycin possible osteo +PAD, vascular consulted pt without hypoxia in ed (erroneous values documented) hospitalist informed for admission - Differential Diagnosis gangrene, sepsis, osteomyelitis, cellulitis Critical Care Time: No Critical care attestation.: If time is entered above; I have spent that time in minutes in the direct care of this critically ill patient, excluding procedure time. ED Disposition Clinical Impression: Cellulitis of left foot, Foot ulcer, right, PAD (peripheral artery disease), ESRD (end stage renal disease) on dialysis, Smoker, Osteomyelitis Disposition: OP ADMIT IP TO THIS HOSP Is pt being admited?: Yes Condition: Stable Time of Disposition: 21:27 (Dr Monroy/hosp)
--- NOTE | 2019-05-07 18:47 | XRay Report ---
RIGHT FOOT 3 VIEWS INDICATION / CLINICAL INFORMATION: dry gangrene with infection. COMPARISON: None available. FINDINGS: The bones are diffusely demineralized throughout the foot. There is diabetic atherosclerotic disease noted. There is diffuse soft tissue swelling throughout the great toe. There appears to be soft tissu e ulceration associated with the great toe. There is some cortical irregularity and lucency involving the distal aspect of the proximal phalanx and the base of the distal phalanx of the great toe very s uggestive for focal osteomyelitis. There is prominent soft tissue swelling along the dorsum of the foot. No acute fracture. IMPRESSION: Small areas of lucency and cortical irregularity involving the proximal and distal phalan x of the great toe adjacent to the interphalangeal joint, highly suggestive for osteomyelitis. Please correlate clinically. Signer Name: Ericka Gamez MD Signed: 05/07/2019 6:42 PM Workstation Name: [id number]
[2019-05-07 19:20] LABS: Albumin 4.2 g/dL (3.9-5); Calcium 10.7 mg/dL (8.4-10.2)
[2019-05-07 20:17] LABS: Hematocrit 35.1 % (35.5-45.6); Hemoglobin 11.2 gm/dl (11.8-15.2); Mean Corpuscular HGB Conc 32 % (32-34); Mean Corpuscular Volume 85 fl (84-94); Platelet Count 302 K/mm3 (140-440); Red Blood Count 4.13 M/mm3 (3.65-5.03); Red Cell Distribution Width 17.5 % (13.2-15.2)
[2019-05-07 21:10] LABS: Basophils % (Manual) 0 % (0.0-1.8); Total Cells Counted 100
[2019-05-07 21:11] LABS: Anisocytosis 1+; Large Platelets 1+; Platelet Estimate Cons; Poikilocytosis 1+
--- NOTE | 2019-05-07 23:02 | History and Physical Report ---
History of Present Illness Date of examination: 05/07/19 Date of admission: 05/07/19 22:15 History of present illness: There is a 4-year-old man with a history of end-stage renal disease on dialysis, hypertension, diabetes, GERD, peripheral vascular disease, dementia was sent to the emergency room for evaluation of right low drainage, the patient is unable to give a history or review of systems unobtainable PAST MEDICAL HISTORY:end-stage renal disease on dialysis, hypertension, diabetes, GERD, peripheral vascular disease, dementia PAST SURGICAL HISTORY: FAMILY HISTORY:hypertension, diabetes SOCIAL HISTORY: + tobacco, no drugs, alcohol Medications and Allergies Allergies Allergy/AdvReac Type Severity Reaction Status Date / Time Penicillins Allergy Unknown Verified 11/10/18 09:47 Home Medications Medication Instructions Recorded Confirmed Last Taken Type Ascorbic Acid [Vitamin C] 500 mg PO BID 12/27/16 11/10/18 Unknown History AtorvaSTATin [Lipitor] 40 mg PO QHS 12/27/16 11/10/18 Unknown History Ferrous Sulfate [Feosol 325 MG tab] 325 mg PO BID 12/27/16 11/10/18 Unknown History Folic Acid [Folvite] 1 mg PO QDAY 12/27/16 11/10/18 Unknown History Omeprazole Magnesium [PriLOSEC Otc] 20 mg PO QDAY 12/27/16 11/10/18 Unknown History Ondansetron [Zofran TAB] 4 mg PO Q4H PRN 12/27/16 11/10/18 Unknown History Thiamine [Vitamin B-1] 100 mg PO QDAY 12/27/16 11/10/18 Unknown History Vit B Comp No.3/Folic/C/Biotin 1 each PO DAILY 12/27/16 11/10/18 Unknown History [Cheryl-Pricilla Rx Tablet] diphenhydrAMINE [Benadryl CAP] 25 mg PO DAILY PRN 12/27/16 11/10/18 Unknown History Pantoprazole [Protonix TAB] 40 mg PO QDAY #30 tablet 02/04/17 11/10/18 Unknown Rx Acetaminophen 650 mg PO Q4H PRN 02/14/17 11/10/18 Unknown History Insulin Lispro [HumaLOG VIAL] 0 unit SQ BID 02/14/17 11/10/18 Unknown History Insulin Lispro [Humalog 100 20 units SQ AC 02/14/17 11/10/18 Unknown History UNITS/ML Kwikpen] Cinacalcet [Sensipar] 30 mg PO QDAY 11/10/18 11/10/18 Unknown History Donepezil HCl 10 mg PO QHS 11/10/18 11/10/18 Unknown History Insulin Glargine,Hum.rec.anlog 44 units SQ QHS 11/10/18 11/10/18 Unknown History [Lantus] Losartan Potassium 100 mg PO QHS 11/10/18 11/10/18 Unknown History Metoprolol Tartrate 75 mg PO BID 11/10/18 11/10/18 Unknown History Sevelamer Carbonate 2,400 mg PO TIDWM 11/10/18 11/10/18 Unknown History amLODIPine [Norvasc] 10 mg PO DAILY 11/10/18 11/10/18 Unknown History cloNIDine-TTS PATCH [Catapres-Tts 1 patch TD Q7D 11/10/18 11/10/18 Unknown History 0.1MG Patch] levETIRAcetam [Keppra TAB] 250 mg PO BID 11/10/18 11/10/18 Unknown History raNITIdine HCl [Zantac] 150 mg PO QHS 11/10/18 11/10/18 Unknown History levETIRAcetam [Keppra TAB] 250 mg PO BID tablet 11/12/18 Unknown Rx levoFLOXacin [Levaquin TAB] 500 mg PO Q48HR 7 Days tablet 11/13/18 Unknown Rx Active Meds: Active Medications Enoxaparin Sodium (Lovenox) 30 mg SUB-Q QDAY LUZ Levofloxacin/Dextrose (Levaquin 250mg/50ml) 250 mg in 50 mls @ 50 mls/hr IV Q48HR LUZ; Protocol Exam - Physical Exam Narrative exam: General Apperance: The patient sitting in bed no acute distress HEENT: Normocephalic, atraumatic. Pupils equally round and reactive to light, extraocular movement intact, and no sclericterus or JVD or thyromegaly or nodule. Neck supple, no carotid bruit, mucous membranes moist, no exudate or erythema Heart: S1-S2, regular is rhythm Lungs: Clear to auscultation bilaterally, breathing comfortable Abdomen: Positive bowel sounds, soft, nontender, nondistended, no organomegaly Extremities: Wounds on the right great and second toe, no drainage, discolration foot,left BKA, No edema cyanosis clubbing Skin: no rash, nodule, warm and dry Neuro:CN 2 -12 intact, motor/sensory intact, speech is fluent - Constitutional Vitals: Temp Pulse Resp BP Pulse Ox 98.5 F 67 14 147/75 99 05/07/19 17:50 05/07/19 20:45 05/07/19 21:45 05/07/19 21:45 05/07/19 21:45 Results - Labs CBC & Chem 7: 05/07/19 18:39 05/07/19 18:39 Labs: Abnormal lab results 05/07/19 05/07/19 05/07/19 Range/Units 18:39 18:39 18:39 Hgb 11.2 L (11.8-15.2) gm/dl Hct 35.1 L (35.5-45.6) % MCH 27 L (28-32) pg RDW 17.5 H (13.2-15.2) % Monocytes % (Manual) 10.0 H (0.0-7.3) % Eosinophils % (Manual) 6.0 H (0.0-4.3) % Eosinophils # (Manual) 0.5 H (0.0-0.4) K/mm3 VBG pH (7.320-7.420) Sodium 135 L (137-145) mmol/L Chloride 92.1 L (98-107) mmol/L BUN 31 H (9-20) mg/dL Creatinine 6.9 H (0.8-1.5) mg/dL Glucose 193 H (75-100) mg/dL Lactic Acid 2.80 H* (0.7-2.0) mmol/L Calcium 10.7 H (8.4-10.2) mg/dL Alkaline Phosphatase 136 H (35-129) units/L Total Protein 8.7 H (6.3-8.2) g/dL 05/07/19 05/07/19 Range/Units 18:39 20:00 Hgb (11.8-15.2) gm/dl Hct (35.5-45.6) % MCH (28-32) pg RDW (13.2-15.2) % Monocytes % (Manual) (0.0-7.3) % Eosinophils % (Manual) (0.0-4.3) % Eosinophils # (Manual) (0.0-0.4) K/mm3 VBG pH 7.269 L (7.320-7.420) Sodium (137-145) mmol/L Chloride (98-107) mmol/L BUN (9-20) mg/dL Creatinine (0.8-1.5) mg/dL Glucose (75-100) mg/dL Lactic Acid 2.10 H* (0.7-2.0) mmol/L Calcium (8.4-10.2) mg/dL Alkaline Phosphatase (35-129) units/L Total Protein (6.3-8.2) g/dL Assessment and Plan xray of foot reviewed Osteomylitis end-stage renal disease on dialysis hypertension diabetes GERD peripheral vascular disease dementia Plan Vascular was consulted to see the patient start levaquin, s/p vanco Consult ID, check fingersticks initiate insulin sliding-scale DVT prophylaxis
[2019-05-08] MEDS ORDERED: ZOFRAN IV PRN (00:22)
[2019-05-08] MEDS ORDERED: SODIUM CHLORIDE FLUSH SYRINGE 10 ML IV PRN (00:22)
[2019-05-08] MEDS ORDERED: TYLENOL PO PRN (00:22)
[2019-05-08] MEDS ORDERED: D50W (25GM) Syringe IV PRN (06:49)
--- NOTE | 2019-05-08 09:23 | Consultation ---
History of Present Illness - Reason for Consult Consult date: 05/08/19 end stage renal disease - History of Present Illness The patient is a 58 YO male with history significant for DM type 2, HTN, ESRD on hemodialysis (TTS), GERD, Seizure disorder and Senior Living Resident who is known to our service was brought into ED for evaluation of right toe drainage. Patient was not able to provide any history and there was no family member at the bedside. Patient has been receiving dressing for the wounds on his foot the last 3 weeks. Family member noticed discharge from the right foot wound. He was last dialyzed 2 days ago. Nephrology was consulted for treatment of ESRD. Past History Past Medical History: diabetes, dialysis, ESRD, hypertension, hyperlipidemia Medications and Allergies Allergies Allergy/AdvReac Type Severity Reaction Status Date / Time Penicillins Allergy Unknown Verified 11/10/18 09:47 Home Medications Medication Instructions Recorded Confirmed Last Taken Type Ascorbic Acid [Vitamin C] 500 mg PO BID 12/27/16 11/10/18 Unknown History AtorvaSTATin [Lipitor] 40 mg PO QHS 12/27/16 11/10/18 Unknown History Ferrous Sulfate [Feosol 325 MG tab] 325 mg PO BID 12/27/16 11/10/18 Unknown History Folic Acid [Folvite] 1 mg PO QDAY 12/27/16 11/10/18 Unknown History Omeprazole Magnesium [PriLOSEC Otc] 20 mg PO QDAY 12/27/16 11/10/18 Unknown History Ondansetron [Zofran TAB] 4 mg PO Q4H PRN 12/27/16 11/10/18 Unknown History Thiamine [Vitamin B-1] 100 mg PO QDAY 12/27/16 11/10/18 Unknown History Vit B Comp No.3/Folic/C/Biotin 1 each PO DAILY 12/27/16 11/10/18 Unknown History [Cheryl-Pricilla Rx Tablet] diphenhydrAMINE [Benadryl CAP] 25 mg PO DAILY PRN 12/27/16 11/10/18 Unknown History Pantoprazole [Protonix TAB] 40 mg PO QDAY #30 tablet 02/04/17 11/10/18 Unknown Rx Acetaminophen 650 mg PO Q4H PRN 02/14/17 11/10/18 Unknown History Insulin Lispro [HumaLOG VIAL] 0 unit SQ BID 02/14/17 11/10/18 Unknown History Insulin Lispro [Humalog 100 20 units SQ AC 02/14/17 11/10/18 Unknown History UNITS/ML Kwikpen] Cinacalcet [Sensipar] 30 mg PO QDAY 11/10/18 11/10/18 Unknown History Donepezil HCl 10 mg PO QHS 11/10/18 11/10/18 Unknown History Insulin Glargine,Hum.rec.anlog 44 units SQ QHS 11/10/18 11/10/18 Unknown History [Lantus] Losartan Potassium 100 mg PO QHS 11/10/18 11/10/18 Unknown History Metoprolol Tartrate 75 mg PO BID 11/10/18 11/10/18 Unknown History Sevelamer Carbonate 2,400 mg PO TIDWM 11/10/18 11/10/18 Unknown History amLODIPine [Norvasc] 10 mg PO DAILY 11/10/18 11/10/18 Unknown History cloNIDine-TTS PATCH [Catapres-Tts 1 patch TD Q7D 11/10/18 11/10/18 Unknown History 0.1MG Patch] levETIRAcetam [Keppra TAB] 250 mg PO BID 11/10/18 11/10/18 Unknown History raNITIdine HCl [Zantac] 150 mg PO QHS 11/10/18 11/10/18 Unknown History levETIRAcetam [Keppra TAB] 250 mg PO BID tablet 11/12/18 Unknown Rx levoFLOXacin [Levaquin TAB] 500 mg PO Q48HR 7 Days tablet 11/13/18 Unknown Rx Active Meds: Active Medications Acetaminophen (Tylenol) 650 mg PO Q4H PRN PRN Reason: Pain MILD(1-3)/Fever >100.5/DINERO Dextrose (D50w (25gm) Syringe) 50 ml IV PRN PRN PRN Reason: Hypoglycemia Enoxaparin Sodium (Lovenox) 30 mg SUB-Q QDAY [facility] Levofloxacin/Dextrose (Levaquin 250mg/50ml) 250 mg in 50 mls @ 50 mls/hr IV Q48HR [facility]; Protocol Insulin Human Lispro (Humalog) 0 unit SUB-Q ACHS [facility]; Protocol Ondansetron HCl (Zofran) 4 mg IV Q8H PRN PRN Reason: Nausea And Vomiting Oxycodone/Acetaminophen (Percocet 5/325) 1 tab PO Q6H PRN PRN Reason: Pain, Moderate (4-6) Sodium Chloride (Sodium Chloride Flush Syringe 10 Ml) 10 ml IV BID [facility]Z Sodium Chloride (Sodium Chloride Flush Syringe 10 Ml) 10 ml IV PRN PRN PRN Reason: LINE FLUSH Review of Systems ROS unobtainable: due to mental status Exam - Vital Signs Vital signs: Vital Signs Pulse Resp Pulse Ox 70 19 79 L 05/07/19 17:47 05/07/19 17:47 05/07/19 17:47 - General Appearance General appearance: well-developed, well-nourished, appears stated age, other (no distress) EENT: ATNC, PERRL Neck: Present: neck supple, trachea midline Respiratory: Clear to Ascultation Heart: regular, S1S2, no murmurs Gastrointestinal: Present: normoactive bowel sounds. Absent: tenderness, distended Neurologic: confused, disoriented, other (answers few questions) Musculoskeletal: Present: other (R foot toes gangrene, no discharge, left BKA, right arm AVF) Results - Lab Results 05/07/19 18:39 05/07/19 18:39 Most recent lab results Calcium 10.7 mg/dL (8.4-10.2) H 05/07/19 18:39 Assessment and Plan 1. ESRD: Patient is on maintenance hemodialysis three times a week, TTS schedule. Next HD tomorrow. 2. FEN: Monitor. 3. Anemia: Epogen if needed. 4. R foot / toe gangrene: Followed by ID and Surgery. 5. DM type 2.
[2019-05-08] MEDS ORDERED: LEVAQUIN 250MG/50ML 250 MG/50 ML BAG IV SCH (10:00)
[2019-05-08] MEDS: HumaLOG SUB-Q SCH ×5 (10:25→22:34)
--- NOTE | 2019-05-08 10:36 | Consultation ---
History of Present Illness - Reason for Consult Consult date: 05/08/19 - History of Present Illness 58 yo M PMhx PAD, ESRD on HD TTS, dementia, DM2, remote Viral TAMAYO [facility]. He is unable to provide his history as such it is taken from the chart. According to family members the jail has been dressing the wounds for approximately the past 3 weeks. it is unclear if he received any antibiotics while at the jail. Otherwise, patient and family deny fevers, sweats, chills. No other acute complaints at this time. Afebrile since admission with a normal white count. Blood cultures from 05/07 are NGTD. he was seen by our group in of this year fro an unrelated issue. Imaging personally reviewed: 05/07 Foot XR: 1st great toe lucency with significant concern for osteomyelitis. Review of Systems: Unable to obtain due to mental status. Past History Past Medical History: diabetes, dialysis, ESRD, PVD, other (Dementia) Past Surgical History: Other (Viral TAMAYO) Social history: smoking. denies: alcohol abuse Family history: diabetes Medications and Allergies Allergies Allergy/AdvReac Type Severity Reaction Status Date / Time Penicillins Allergy Unknown Verified 11/10/18 09:47 Home Medications Medication Instructions Recorded Confirmed Last Taken Type Ascorbic Acid [Vitamin C] 500 mg PO BID 12/27/16 11/10/18 Unknown History AtorvaSTATin [Lipitor] 40 mg PO QHS 12/27/16 11/10/18 Unknown History Ferrous Sulfate [Feosol 325 MG tab] 325 mg PO BID 12/27/16 11/10/18 Unknown History Folic Acid [Folvite] 1 mg PO QDAY 12/27/16 11/10/18 Unknown History Omeprazole Magnesium [PriLOSEC Otc] 20 mg PO QDAY 12/27/16 11/10/18 Unknown History Ondansetron [Zofran TAB] 4 mg PO Q4H PRN 12/27/16 11/10/18 Unknown History Thiamine [Vitamin B-1] 100 mg PO QDAY 12/27/16 11/10/18 Unknown History Vit B Comp No.3/Folic/C/Biotin 1 each PO DAILY 12/27/16 11/10/18 Unknown History [Cheryl-Pricilla Rx Tablet] diphenhydrAMINE [Benadryl CAP] 25 mg PO DAILY PRN 12/27/16 11/10/18 Unknown Hist ory Pantoprazole [Protonix TAB] 40 mg PO QDAY #30 tablet 02/04/17 11/10/18 Unknown Rx Acetaminophen 650 mg PO Q4H PRN 02/14/17 11/10/18 Unknown History Insulin Lispro [HumaLOG VIAL] 0 unit SQ BID 02/14/17 11/10/18 Unknown History Insulin Lispro [Humalog 100 20 units SQ AC 02/14/17 11/10/18 Unknown History UNITS/ML Kwikpen] Cinacalcet [Sensipar] 30 mg PO QDAY 11/10/18 11/10/18 Unknown History Donepezil HCl 10 mg PO QHS 11/10/18 11/10/18 Unknown History Insulin Glargine,Hum.rec.anlog 44 units SQ QHS 11/10/18 11/10/18 Unknown History [Lantus] Losartan Potassium 100 mg PO QHS 11/10/18 11/10/18 Unknown History Metoprolol Tartrate 75 mg PO BID 11/10/18 11/10/18 Unknown History Sevelamer Carbonate 2,400 mg PO TIDWM 11/10/18 11/10/18 Unknown History amLODIPine [Norvasc] 10 mg PO DAILY 11/10/18 11/10/18 Unknown History cloNIDine-TTS PATCH [Catapres-Tts 1 patch TD Q7D 11/10/18 11/10/18 Unknown History 0.1MG Patch] levETIRAcetam [Keppra TAB] 250 mg PO BID 11/10/18 11/10/18 Unknown History raNITIdine HCl [Zantac] 150 mg PO QHS 11/10/18 11/10/18 Unknown History levETIRAcetam [Keppra TAB] 250 mg PO BID tablet 11/12/18 Unknown Rx levoFLOXacin [Levaquin TAB] 500 mg PO Q48HR 7 Days tablet 11/13/18 Unknown Rx Active Meds: Active Medications Acetaminophen (Tylenol) 650 mg PO Q4H PRN PRN Reason: Pain MILD(1-3)/Fever >100.5/DINERO Dextrose (D50w (25gm) Syringe) 50 ml IV PRN PRN PRN Reason: Hypoglycemia Enoxaparin Sodium (Lovenox) 30 mg SUB-Q QDAY [facility] Levofloxacin/Dextrose (Levaquin 250mg/50ml) 250 mg in 50 mls @ 50 mls/hr IV Q48HR [facility]; Protocol Insulin Human Lispro (Humalog) 0 unit SUB-Q ACHS [facility]; Protocol Last Admin: 05/08/19 10:25 Dose: Not Given Documented by: Ondansetron HCl (Zofran) 4 mg IV Q8H PRN PRN Reason: Nausea And Vomiting Oxycodone/Acetaminophen (Percocet 5/325) 1 tab PO Q6H PRN PRN Reason: Pain, Moderate (4-6) Sodium Chloride (Sodium Chloride Flush Syringe 10 Ml) 10 ml IV BID [facility] Sodium Chloride (Sodium Chloride Flush Syringe 10 Ml) 10 ml IV PRN PRN PRN Reason: LINE FLUSH Review of Systems ROS unobtainable: due to mental status Physical Examination - Physical Exam Narrative exam: Physical Exam: Constitutional: Alert, cooperative. No acute distress Head, Ears, Nose: Normocephalic, atraumatic. External ears, nose normal Eyes: Conjunctivae/corneas clear. No icterus. No ptosis. Neck: Supple, no meningeal signs Oral: dentition fair, no thrush Cardiovascular: S1, S2 normal. Respiratory: Good air entry, clear to auscultation bilaterally GI: Soft, non-tender; bowel sounds normal. No peritoneal signs. Musculoskeletal: No pedal edema, no cyanosis. Dry, gangrenous toe. No acute ulcer. Skin: No rash or abscess Hem/Lymphatic: No palpable cervical or supraclavicular nodes. No lymphangitis Psych: Mood ok. Affect normal Neurological: Awake, alert, oriented. No gross abnormality - Constitutional Vitals: Vital Signs Temp Pulse Resp BP Pulse Ox 98.1 F 74 20 149/74 100 05/08/19 04:17 05/08/19 04:17 05/08/19 04:17 05/08/19 04:17 05/08/19 04:17 Temperature -Last 24 Hours Temperature 98.1 F Temperature 97.8 F Temperature 98.5 F Results - Labs CBC & Chem 7: 05/07/19 18:39 05/07/19 18:39 Labs: Abnormal lab results 05/07/19 05/07/19 05/07/19 Range/Units 18:39 18:39 18:39 Hgb 11.2 L (11.8-15.2) gm/dl Hct 35.1 L (35.5-45.6) % MCH 27 L (28-32) pg RDW 17.5 H (13.2-15.2) % Monocytes % (Manual) 10.0 H (0.0-7.3) % Eosinophils % (Manual) 6.0 H (0.0-4.3) % Eosinophils # (Manual) 0.5 H (0.0-0.4) K/mm3 VBG pH (7.320-7.420) Sodium 135 L (137-145) mmol/L Chloride 92.1 L (98-107) mmol/L BUN 31 H (9-20) mg/dL Creatinine 6.9 H (0.8-1.5) mg/dL Glucose 193 H (75-100) mg/dL POC Glucose (70-105) Lactic Acid 2.80 H* (0.7-2.0) mmol/L Calcium 10.7 H (8.4-10.2) mg/dL Alkaline Phosphatase 136 H (35-129) units/L Total Protein 8.7 H (6.3-8.2) g/dL 05/07/19 05/07/19 05/08/19 Range/Units 18:39 20:00 09:13 Hgb (11.8-15.2) gm/dl Hct (35.5-45.6) % MCH (28-32) pg RDW (13.2-15.2) % Monocytes % (Manual) (0.0-7.3) % Eosinophils % (Manual) (0.0-4.3) % Eosinophils # (Manual) (0.0-0.4) K/mm3 VBG pH 7.269 L (7.320-7.420) Sodium (137-145) mmol/L Chloride (98-107) mmol/L BUN (9-20) mg/dL Creatinine (0.8-1.5) mg/dL Glucose (75-100) mg/dL POC Glucose 221 H (70-105) Lactic Acid 2.10 H* (0.7-2.0) mmol/L Calcium (8.4-10.2) mg/dL Alkaline Phosphatase (35-129) units/L Total Protein (6.3-8.2) g/dL Assessment and Plan Cultures: 05/07/19 BCX - NGTD A/P: 58 yo M PMhx PAD, ESRD on HD TTS, dementia, DM2, remote L BKA [facility] with R toe drainage and osteomyelitis. 1. Osteomyelitis of the R great toe - in the setting of gangrene. Patient is currently stable, as such would stop the levofloxacin in order to increase the yield of obtained cultures. General surgery has seen the patient, appreciate their recs. Depending on their course of action we can decide on antibiotics, but there is no need for them acutely. It will be difficult to heal the osteomyelitis medically if he has poor blood flow to the bone. High risk of limb loss. 2. Gangrene of R great toe 3. ESRD on HD 4. DM2 5. PAD 6. Dementia Recs: - stop levofloxacin - If surgery performed please send for aerobic/anaerobic cultures in addition to pathology Thank you for the consult, we will continue to follow with you. MD Clemente [facility] M: [phone] O: [phone] F: [phone]
[2019-05-08] MEDS: SODIUM CHLORIDE FLUSH SYRINGE 10 ML IV SCH ×2 (10:45→22:33)
--- NOTE | 2019-05-08 13:46 | Consultation ---
History of Present Illness Consult date: 05/08/19 Chief complaint: right foot wound - History of present illness History of present illness: 58 yo M who resides at [facility] presents to hospital with wound of right toes. He is a poor historian. Per notes wounds have been present for about 3 weeks and receiving dressing changes at the [facility]. Pt states there is no pain. No f/c. No CP, SOB, abd pain. Pt is s/p L BKA. He has hx of ESRD on HD, PVD, dementia, DM. Pt is nonambulatory, he gets around in a wheelchair. Past History Past Medical History: diabetes, dialysis, ESRD, PVD, other (Dementia) Past Surgical History: Other (L BKA) Social history: smoking. denies: alcohol abuse Family history: diabetes Medications and Allergies Allergies Allergy/AdvReac Type Severity Reaction Status Date / Time Penicillins Allergy Unknown Verified 11/10/18 09:47 Home Medications Medication Instructions Recorded Confirmed Last Taken Type Ascorbic Acid [Vitamin C] 500 mg PO BID 12/27/16 11/10/18 Unknown History AtorvaSTATin [Lipitor] 40 mg PO QHS 12/27/16 11/10/18 Unknown History Ferrous Sulfate [Feosol 325 MG tab] 325 mg PO BID 12/27/16 11/10/18 Unknown His tory Folic Acid [Folvite] 1 mg PO QDAY 12/27/16 11/10/18 Unknown History Omeprazole Magnesium [PriLOSEC Otc] 20 mg PO QDAY 12/27/16 11/10/18 Unknown History Ondansetron [Zofran TAB] 4 mg PO Q4H PRN 12/27/16 11/10/18 Unknown History Thiamine [Vitamin B-1] 100 mg PO QDAY 12/27/16 11/10/18 Unknown History Vit B Comp No.3/Folic/C/Biotin 1 each PO DAILY 12/27/16 11/10/18 Unknown History [Cheryl-Pricilla Rx Tablet] diphenhydrAMINE [Benadryl CAP] 25 mg PO DAILY PRN 12/27/16 11/10/18 Unknown History Pantoprazole [Protonix TAB] 40 mg PO QDAY #30 tablet 02/04/17 11/10/18 Unknown Rx Acetaminophen 650 mg PO Q4H PRN 02/14/17 11/10/18 Unknown History Insulin Lispro [HumaLOG VIAL] 0 unit SQ BID 02/14/17 11/10/18 Unknown History Insulin Lispro [Humalog 100 20 units SQ AC 02/14/17 11/10/18 Unknown History UNITS/ML Kwikpen] Cinacalcet [Sensipar] 30 mg PO QDAY 11/10/18 11/10/18 Unknown History Donepezil HCl 10 mg PO QHS 11/10/18 11/10/18 Unknown History Insulin Glargine,Hum.rec.anlog 44 units SQ QHS 11/10/18 11/10/18 Unknown History [Lantus] Losartan Potassium 100 mg PO QHS 11/10/18 11/10/18 Unknown History Metoprolol Tartrate 75 mg PO BID 11/10/18 11/10/18 Unknown History Sevelamer Carbonate 2,400 mg PO TIDWM 11/10/18 11/10/18 Unknown History amLODIPine [Norvasc] 10 mg PO DAILY 11/10/18 11/10/18 Unknown History cloNIDine-TTS PATCH [Catapres-Tts 1 patch TD Q7D 11/10/18 11/10/18 Unknown History 0.1MG Patch] levETIRAcetam [Keppra TAB] 250 mg PO BID 11/10/18 11/10/18 Unknown History raNITIdine HCl [Zantac] 150 mg PO QHS 11/10/18 11/10/18 Unknown History levETIRAcetam [Keppra TAB] 250 mg PO BID tablet 11/12/18 Unknown Rx levoFLOXacin [Levaquin TAB] 500 mg PO Q48HR 7 Days tablet 11/13/18 Unknown Rx Active Meds: Active Medications Acetaminophen (Tylenol) 650 mg PO Q4H PRN PRN Reason: Pain MILD(1-3)/Fever >100.5/DINERO Dextrose (D50w (25gm) Syringe) 50 ml IV PRN PRN PRN Reason: Hypoglycemia Enoxaparin Sodium (Lovenox) 30 mg SUB-Q QDAY [facility] Levofloxacin/Dextrose (Levaquin 250mg/50ml) 250 mg in 50 mls @ 50 mls/hr IV Q48HR [facility]; Protocol Last Admin: 05/08/19 10:43 Dose: 50 mls/hr Documented by: Insulin Human Lispro (Humalog) 0 unit SUB-Q ACHS [facility]; Protocol Last Admin: 05/08/19 13:03 Dose: 3 unit Documented by: Ondansetron HCl (Zofran) 4 mg IV Q8H PRN PRN Reason: Nausea And Vomiting Oxycodone/Acetaminophen (Percocet 5/325) 1 tab PO Q6H PRN PRN Reason: Pain, Moderate (4-6) Sodium Chloride (Sodium Chloride Flush Syringe 10 Ml) 10 ml IV BID [facility] Last Admin: 05/08/19 10:45 Dose: 10 ml Documented by: Sodium Chloride (Sodium Chloride Flush Syringe 10 Ml) 10 ml IV PRN PRN PRN Reason: LINE FLUSH Review of Systems ROS unobtainable: due to mental status All systems: negative (10 pt ROS performed and negative except for that listed in HPI) Exam Vital Signs Pulse Resp Pulse Ox 70 19 79 L 05/07/19 17:47 05/07/19 17:47 05/07/19 17:47 Narrative exam: Gen: Awake and alert. NAD CV; S1, S2+ Resp; even and unlabored Ext: L BKA. R foot with 3+ edema, warm. No TTP. No erythema. Dry gangrene of dorsal aspect of great toe and second toe. No drainage. Pt unable to move those toes. No palpable DP or PT pulse. Results - Labs 05/07/19 18:39 05/07/19 18:39 Abnormal lab results 05/07/19 05/07/19 05/07/19 Range/Units 18:39 18:39 18:39 Hgb 11.2 L (11.8-15.2) gm/dl Hct 35.1 L (35.5-45.6) % MCH 27 L (28-32) pg RDW 17.5 H (13.2-15.2) % Monocytes % (Manual) 10.0 H (0.0-7.3) % Eosinophils % (Manual) 6.0 H (0.0-4.3) % Eosinophils # (Manual) 0.5 H (0.0-0.4) K/mm3 VBG pH (7.320-7.420) Sodium 135 L (137-145) mmol/L Chloride 92.1 L (98-107) mmol/L BUN 31 H (9-20) mg/dL Creatinine 6.9 H (0.8-1.5) mg/dL Glucose 193 H (75-100) mg/dL POC Glucose (70-105) Lactic Acid 2.80 H* (0.7-2.0) mmol/L Calcium 10.7 H (8.4-10.2) mg/dL Alkaline Phosphatase 136 H (35-129) units/L Total Protein 8.7 H (6.3-8.2) g/dL 05/07/19 05/07/19 05/08/19 Range/Units 18:39 20:00 09:13 Hgb (11.8-15.2) gm/dl Hct (35.5-45.6) % MCH (28-32) pg RDW (13.2-15.2) % Monocytes % (Manual) (0.0-7.3) % Eosinophils % (Manual) (0.0-4.3) % Eosinophils # (Manual) (0.0-0.4) K/mm3 VBG pH 7.269 L (7.320-7.420) Sodium (137-145) mmol/L Chloride (98-107) mmol/L BUN (9-20) mg/dL Creatinine (0.8-1.5) mg/dL Glucose (75-100) mg/dL POC Glucose 221 H (70-105) Lactic Acid 2.10 H* (0.7-2.0) mmol/L Calcium (8.4-10.2) mg/dL Alkaline Phosphatase (35-129) units/L Total Protein (6.3-8.2) g/dL 05/08/19 Range/Units 11:06 Hgb (11.8-15.2) gm/dl Hct (35.5-45.6) % MCH (28-32) pg RDW (13.2-15.2) % Monocytes % (Manual) (0.0-7.3) % Eosinophils % (Manual) (0.0-4.3) % Eosinophils # (Manual) (0.0-0.4) K/mm3 VBG pH (7.320-7.420) Sodium (137-145) mmol/L Chloride (98-107) mmol/L BUN (9-20) mg/dL Creatinine (0.8-1.5) mg/dL Glucose (75-100) mg/dL POC Glucose 242 H (70-105) Lactic Acid (0.7-2.0) mmol/L Calcium (8.4-10.2) mg/dL Alkaline Phosphatase (35-129) units/L Total Protein (6.3-8.2) g/dL Diabetes panel 05/07/19 Range/Units 18:39 Sodium 135 L (137-145) mmol/L Potassium 4.6 (3.6-5.0) mmol/L Chloride 92.1 L (98-107) mmol/L Carbon Dioxide 24 (22-30) mmol/L BUN 31 H (9-20) mg/dL Creatinine 6.9 H (0.8-1.5) mg/dL Glucose 193 H (75-100) mg/dL Calcium 10.7 H (8.4-10.2) mg/dL AST 17 (5-40) units/L ALT 8 (7-56) units/L Alkaline Phosphatase 136 H (35-129) units/L Total Protein 8.7 H (6.3-8.2) g/dL Albumin 4.2 (3.9-5) g/dL Calcium panel 05/07/19 Range/Units 18:39 Calcium 10.7 H (8.4-10.2) mg/dL Albumin 4.2 (3.9-5) g/dL Pituitary panel 05/07/19 Range/Units 18:39 Sodium 135 L (137-145) mmol/L Potassium 4.6 (3.6-5.0) mmol/L Chloride 92.1 L (98-107) mmol/L Carbon Dioxide 24 (22-30) mmol/L BUN 31 H (9-20) mg/dL Creatinine 6.9 H (0.8-1.5) mg/dL Glucose 193 H (75-100) mg/dL Calcium 10.7 H (8.4-10.2) mg/dL Adrenal panel 05/07/19 Range/Units 18:39 Sodium 135 L (137-145) mmol/L Potassium 4.6 (3.6-5.0) mmol/L Chloride 92.1 L (98-107) mmol/L Carbon Dioxide 24 (22-30) mmol/L BUN 31 H (9-20) mg/dL Creatinine 6.9 H (0.8-1.5) mg/dL Glucose 193 H (75-100) mg/dL Calcium 10.7 H (8.4-10.2) mg/dL Total Bilirubin 0.20 (0.1-1.2) mg/dL AST 17 (5-40) units/L ALT 8 (7-56) units/L Alkaline Phosphatase 136 H (35-129) units/L Total Protein 8.7 H (6.3-8.2) g/dL Albumin 4.2 (3.9-5) g/dL - Imaging Additional studies: R foot xray Assessment and Plan 58 yo M with 1. right toe wounds with dry gangrene 2. right toe osteomyelitis 3. DM 4. ESRD 5. wheelchair bound Plan; 1. obtain arterial duplex of right lower extremity 2. IV abx per ID 3. debridement vs amputation pending results of vascular studies 4. continue wound care Thank you, please call with questions
[2019-05-08] MEDS: LOVENOX SUB-Q SCH (15:19)
--- NOTE | 2019-05-08 15:22 | Vascular Lab Report ---
DUPLEX DOPPLER LOWER EXTREMITY ARTERIAL, RIGHT INDICATION: toe wound, osteo. TECHNIQUE: Arterial duplex examination of the right lower extremity performed using B-mode, color flow and spect ral Doppler assessment. FINDINGS: RIGHT: Common Femoral Artery: PSV 92 cm/sec. Monophasic waveform. Proximal SFA: PSV 82 cm/sec. Monophasic waveform. Mid SFA: PSV 80 cm/sec. Monophasic waveform. Distal SFA: PSV 73 cm/sec. Monophasic waveform. Popliteal artery: PSV 82 cm/sec. Monophasic waveform. Posterior tibial artery: PSV 58 cm/sec. Monophasic waveform. Dorsalis Pedis Artery: PSV 61 cm/sec. Monophasic waveform. IMPRESSION: 1. Scattered plaque is noted right lower extremity vessels. There is monophasic waveform throughout t he right lower extremity no discrete hemodynamically significant stenosis is identified in the right leg. The monophasic flow throughout the right lower extremity suggest aortoiliac disease in addition to the scattered disease noted in the right lower extremity. Doppler Waveform: * Triphasic is normal. * Biphasic is abnormal if clear transition from triphasic signal along vascular tree. * Monophasic is abnormal. Signer Name: Vineet Thompson MD Signed: 05/08/2019 3:18 PM Workstation Name: [id number]
[2019-05-08 15:45] LABS: Hematocrit 32.4 % (35.5-45.6); Hemoglobin 10.3 gm/dl (11.8-15.2); Mean Corpuscular HGB Conc 32 % (32-34); Mean Corpuscular Volume 86 fl (84-94); Platelet Count 298 K/mm3 (140-440); Red Blood Count 3.79 M/mm3 (3.65-5.03); Red Cell Distribution Width 16.9 % (13.2-15.2)
[2019-05-08 16:02] LABS: Calcium 9.8 mg/dL (8.4-10.2)
[2019-05-08 16:21] LABS: RBC Morphology Normal; Total Cells Counted 100
[2019-05-08] MEDS ORDERED: BENADRYL PO PRN (16:25)
[2019-05-08] MEDS ORDERED: NON-FORMULARY (Ondansetron [Zofran Tab] 4 MG) PO PRN (16:25)
[2019-05-08] MEDS ORDERED: INSULIN LISPRO 5 UNIT SQ SCH (16:30)
[2019-05-08] MEDS ORDERED: ZOFRAN ODT PO PRN (16:38)
--- NOTE | 2019-05-08 16:59 | Progress Note ---
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 According to family members the senior care has been dressing the wounds for approximately the past 3 weeks. it is unclear if he received any antibiotics while at the senior care. In the ER extremities the right foot was highly suggestive for osteomyelitis, patient was admitted for further evaluation and management Radiological data: xry right foot: Small areas of lucency and cortical irregularity involving the proximal and distal phalanx of the great toe adjacent to the interphalangeal joint, highly suggestive for osteomyelitis. Please correlate clinically. Hospitalist Physical exam: General Apperance: The patient sitting in bed no acute distress HEENT: Normocephalic, atraumatic. Pupils equally round and reactive to light, e xtraocular movement intact, and no sclericterus or JVD or thyromegaly or nodule. Neck supple, no carotid bruit, mucous membranes moist, no exudate or erythema Heart: S1-S2, regular is rhythm Lungs: Clear to auscultation bilaterally, breathing comfortable Abdomen: Positive bowel sounds, soft, nontender, nondistended, no organomegaly Extremities: Wounds on the right great and second toe, no drainage, discolration foot,left BKA, No edema Skin: no rash, nodule, warm and dry Neuro: No focal deficit Subjective Date of service: 05/08/19 Interval history: Patient seen and examined. Medical records and medication list reviewed. No acute event overnight noted by the RN. Patient denies any chest pain or difficulty breathing. Patient is tolerating diet. States that cannot feel any pain of the foot Discussed plan of care at bedside with patient. Objective - Constitutional Vitals: Vital Signs - 12hr 05/08/19 11:11 Temperature 98.8 F Pulse Rate 70 Respiratory 18 Rate Blood Pressure 132/56 O2 Sat by Pulse 95 Oximetry - Labs CBC & Chem 7: 05/08/19 15:30 05/08/19 15:30 Labs: Abnormal lab results 05/07/19 05/07/19 05/07/19 Range/Units 18:39 18:39 18:39 Hgb 11.2 L (11.8-15.2) gm/dl Hct 35.1 L (35.5-45.6) % MCH 27 L (28-32) pg RDW 17.5 H (13.2-15.2) % Seg Neuts % (Manual) (40.0-70.0) % Monocytes % (Manual) 10.0 H (0.0-7.3) % Eosinophils % (Manual) 6.0 H (0.0-4.3) % Eosinophils # (Manual) 0.5 H (0.0-0.4) K/mm3 VBG pH (7.320-7.420) Sodium 135 L (137-145) mmol/L Potassium (3.6-5.0) mmol/L Chloride 92.1 L (98-107) mmol/L BUN 31 H (9-20) mg/dL Creatinine 6.9 H (0.8-1.5) mg/dL Glucose 193 H (75-100) mg/dL POC Glucose (70-105) Lactic Acid 2.80 H* (0.7-2.0) mmol/L Calcium 10.7 H (8.4-10.2) mg/dL Alkaline Phosphatase 136 H (35-129) units/L Total Protein 8.7 H (6.3-8.2) g/dL 05/07/19 05/07/19 05/08/19 Range/Units 18:39 20:00 09:13 Hgb (11.8-15.2) gm/dl Hct (35.5-45.6) % MCH (28-32) pg RDW (13.2-15.2) % Seg Neuts % (Manual) (40.0-70.0) % Monocytes % (Manual) (0.0-7.3) % Eosinophils % (Manual) (0.0-4.3) % Eosinophils # (Manual) (0.0-0.4) K/mm3 VBG pH 7.269 L (7.320-7.420) Sodium (137-145) mmol/L Potassium (3.6-5.0) mmol/L Chloride (98-107) mmol/L BUN (9-20) mg/dL Creatinine (0.8-1.5) mg/dL Glucose (75-100) mg/dL POC Glucose 221 H (70-105) Lactic Acid 2.10 H* (0.7-2.0) mmol/L Calcium (8.4-10.2) mg/dL Alkaline Phosphatase (35-129) units/L Total Protein (6.3-8.2) g/dL 05/08/19 05/08/19 05/08/19 Range/Units 11:06 15:30 15:30 Hgb 10.3 L (11.8-15.2) gm/dl Hct 32.4 L (35.5-45.6) % MCH 27 L (28-32) pg RDW 16.9 H (13.2-15.2) % Seg Neuts % (Manual) 71.0 H (40.0-70.0) % Monocytes % (Manual) (0.0-7.3) % Eosinophils % (Manual) (0.0-4.3) % Eosinophils # (Manual) (0.0-0.4) K/mm3 VBG pH (7.320-7.420) Sodium 135 L (137-145) mmol/L Potassium 5.7 H D (3.6-5.0) mmol/L Chloride 94.8 L (98-107) mmol/L BUN 38 H (9-20) mg/dL Creatinine 8.6 H (0.8-1.5) mg/dL Glucose 264 H (75-100) mg/dL POC Glucose 242 H (70-105) Lactic Acid (0.7-2.0) mmol/L Calcium (8.4-10.2) mg/dL Alkaline Phosphatase (35-129) units/L Total Protein (6.3-8.2) g/dL
--- NOTE | 2019-05-08 17:30 | Consultation ---
History of Present Illness - Reason for Consult Consult date: 05/08/19 Right toe gangrene - History of Present Illness HPI: 58yo male with multiple medical problems hospitalized with gangrenous changes of the right great and 2nd toes. The patient with dementia and unable to provide adequate history. Patient with known PVD and hx of previous left BKA. Patient is non-ambulatory. PE: awake and alert RRR non-labored respirations palpable femoral pulses bilat dry gangrene of the right great toe and 2nd toe noted arterial studies reviewed Plan: arterial studies show intact flow into the foot but possible inflow disease documented patient unlikely to stay still for a diagnostic angiogram without significant sedation will obtain CTA to evaluate for arterial insufficiency Past History Past Medical History: diabetes, dialysis, ESRD, hypertension, hyperlipidemia Past Surgical History: Other (L BKA) Social history: smoking. denies: alcohol abuse Family history: diabetes Medications and Allergies Allergies Allergy/AdvReac Type Severity Reaction Status Date / Time Penicillins Allergy Unknown Verified 11/10/18 09:47 Home Medications Medication Instructions Recorded Confirmed Last Taken Type Ascorbic Acid [Vitamin C] 500 mg PO BID 12/27/16 05/08/19 Unknown History AtorvaSTATin [Lipitor] 40 mg PO QHS 12/27/16 05/08/19 Unknown History Ferrous Sulfate [Feosol 325 MG tab] 325 mg PO BID 12/27/16 05/08/19 Unknown History Folic Acid [Folvite] 1 mg PO QDAY 12/27/16 05/08/19 Unknown History Ondansetron [Zofran TAB] 4 mg PO Q4H PRN 12/27/16 05/08/19 Unknown History Thiamine [Vitamin B-1] 100 mg PO QDAY 12/27/16 05/08/19 Unknown History Vit B Comp No.3/Folic/C/Biotin 1 each PO DAILY 12/27/16 05/08/19 Unknown History [Cheryl-Pricilla Rx Tablet] diphenhydrAMINE [Benadryl CAP] 25 mg PO Q6HR PRN 12/27/16 05/08/19 Unknown History Insulin Lispro [HumaLOG VIAL] 20 unit SQ BID 02/14/17 05/08/19 Unknown History Insulin Lispro [Humalog 100 See Protocol SQ AC 02/14/17 05/08/19 Unknown History UNITS/ML Kwikpen] Cinacalcet [Sensipar] 30 mg PO QDAY 11/10/18 05/08/19 Unknown History Donepezil HCl 10 mg PO QHS 11/10/18 05/08/19 Unknown History Insulin Glargine,Hum.rec.anlog 44 units SQ QHS 11/10/18 05/08/19 Unknown History [Lantus] Losartan Potassium 100 mg PO QHS 11/10/18 05/08/19 Unknown History Metoprolol Tartrate 75 mg PO BID 11/10/18 05/08/19 Unknown History Sevelamer Carbonate 2,400 mg PO TIDWM 11/10/18 05/08/19 Unknown History amLODIPine [Norvasc] 10 mg PO DAILY 11/10/18 05/08/19 Unknown History cloNIDine-TTS PATCH [Catapres-Tts 1 patch TD Q7D 11/10/18 05/08/19 Unknown History 0.1MG Patch] raNITIdine HCl [Zantac] 150 mg PO QHS 11/10/18 05/08/19 Unknown History levETIRAcetam [Keppra TAB] 250 mg PO BID tablet 11/12/18 05/08/19 Unknown Rx amLODIPine [Norvasc] 10 mg PO DAILY 05/08/19 05/08/19 Unknown History Active Meds: Active Medications Acetaminophen (Tylenol) 650 mg PO Q4H PRN PRN Reason: Pain MILD(1-3)/Fever >100.5/DINERO Amlodipine Besylate (Norvasc) 10 mg PO DAILY [facility] Ascorbic Acid (Vitamin C) 500 mg PO BID [facility] Atorvastatin Calcium (Lipitor) 40 mg PO QHS [facility] Cinacalcet (Sensipar) 30 mg PO QDAY [facility] Clonidine HCl (Catapres-Tts Patch) 0.1 mg TD Mo [facility] Dextrose (D50w (25gm) Syringe) 50 ml IV PRN PRN PRN Reason: Hypoglycemia Diphenhydramine HCl (Benadryl) 25 mg PO Q6HR PRN PRN Reason: Itching Donepezil HCl (Aricept) 10 mg PO QHS [facility] Enoxaparin Sodium (Lovenox) 30 mg SUB-Q QDAY [facility] Last Admin: 05/08/19 15:19 Dose: 30 mg Documented by: Ferrous Sulfate (Feosol) 325 mg PO BID [facility] Folic Acid (Folvite) 1 mg PO QDAY [facility] Insulin Glargine (Lantus) 44 units SUB-Q QHS [facility] Insulin Human Lispro (Humalog) 0 unit SUB-Q ACHS [facility]; Protocol Last Admin: 05/08/19 13:03 Dose: 3 unit Documented by: Insulin Human Lispro (Humalog) 5 unit SUB-Q AC [facility] Levetiracetam (Keppra) 250 mg PO BID [facility] Losartan Potassium (Cozaar) 100 mg PO HS [facility] Metoprolol Tartrate (Lopressor) 75 mg PO BID [facility] Multivit/Ca Carb/B Cmplx/FA/Prenat (Renal Caps) 1 cap PO QDAY [facility] Ondansetron HCl (Zofran) 4 mg IV Q8H PRN PRN Reason: Nausea And Vomiting Ondansetron HCl (Zofran Odt) 4 mg PO Q4H PRN PRN Reason: Nausea And Vomiting Oxycodone/Acetaminophen (Percocet 5/325) 1 tab PO Q6H PRN PRN Reason: Pain, Moderate (4-6) Sevelamer Carbonate (Renvela) 2,400 mg PO TIDWM [facility] Sodium Chloride (Sodium Chloride Flush Syringe 10 Ml) 10 ml IV BID [facility] Last Admin: 05/08/19 10:45 Dose: 10 ml Documented by: Sodium Chloride (Sodium Chloride Flush Syringe 10 Ml) 10 ml IV PRN PRN PRN Reason: LINE FLUSH Thiamine HCl (Vitamin B-1) 100 mg PO QDAY [facility] Exam - Constitutional Vitals: Temp Pulse Resp BP Pulse Ox 98.8 F 70 18 132/56 95 05/08/19 11:11 05/08/19 11:11 05/08/19 11:11 05/08/19 11:11 05/08/19 11:11 Results - Labs CBC & Chem 7: 05/08/19 15:30 05/08/19 15:30 Labs: Abnormal lab results 05/07/19 05/07/19 05/07/19 Range/Units 18:39 18:39 18:39 Hgb 11.2 L (11.8-15.2) gm/dl Hct 35.1 L (35.5-45.6) % MCH 27 L (28-32) pg RDW 17.5 H (13.2-15.2) % Seg Neuts % (Manual) (40.0-70.0) % Monocytes % (Manual) 10.0 H (0.0-7.3) % Eosinophils % (Manual) 6.0 H (0.0-4.3) % Eosinophils # (Manual) 0.5 H (0.0-0.4) K/mm3 VBG pH (7.320-7.420) Sodium 135 L (137-145) mmol/L Potassium (3.6-5.0) mmol/L Chloride 92.1 L (98-107) mmol/L BUN 31 H (9-20) mg/dL Creatinine 6.9 H (0.8-1.5) mg/dL Glucose 193 H (75-100) mg/dL POC Glucose (70-105) Lactic Acid 2.80 H* (0.7-2.0) mmol/L Calcium 10.7 H (8.4-10.2) mg/dL Alkaline Phosphatase 136 H (35-129) units/L Total Protein 8.7 H (6.3-8.2) g/dL 05/07/19 05/07/19 05/08/19 Range/Units 18:39 20:00 09:13 Hgb (11.8-15.2) gm/dl Hct (35.5-45.6) % MCH (28-32) pg RDW (13.2-15.2) % Seg Neuts % (Manual) (40.0-70.0) % Monocytes % (Manual) (0.0-7.3) % Eosinophils % (Manual) (0.0-4.3) % Eosinophils # (Manual) (0.0-0.4) K/mm3 VBG pH 7.269 L (7.320-7.420) Sodium (137-145) mmol/L Potassium (3.6-5.0) mmol/L Chloride (98-107) mmol/L BUN (9-20) mg/dL Creatinine (0.8-1.5) mg/dL Glucose (75-100) mg/dL POC Glucose 221 H (70-105) Lactic Acid 2.10 H* (0.7-2.0) mmol/L Calcium (8.4-10.2) mg/dL Alkaline Phosphatase (35-129) units/L Total Protein (6.3-8.2) g/dL 05/08/19 05/08/19 05/08/19 Range/Units 11:06 15:30 15:30 Hgb 10.3 L (11.8-15.2) gm/dl Hct 32.4 L (35.5-45.6) % MCH 27 L (28-32) pg RDW 16.9 H (13.2-15.2) % Seg Neuts % (Manual) 71.0 H (40.0-70.0) % Monocytes % (Manual) (0.0-7.3) % Eosinophils % (Manual) (0.0-4.3) % Eosinophils # (Manual) (0.0-0.4) K/mm3 VBG pH (7.320-7.420) Sodium 135 L (137-145) mmol/L Potassium 5.7 H D (3.6-5.0) mmol/L Chloride 94.8 L (98-107) mmol/L BUN 38 H (9-20) mg/dL Creatinine 8.6 H (0.8-1.5) mg/dL Glucose 264 H (75-100) mg/dL POC Glucose 242 H (70-105) Lactic Acid (0.7-2.0) mmol/L Calcium (8.4-10.2) mg/dL Alkaline Phosphatase (35-129) units/L Total Protein (6.3-8.2) g/dL 05/08/19 Range/Units 16:54 Hgb (11.8-15.2) gm/dl Hct (35.5-45.6) % MCH (28-32) pg RDW (13.2-15.2) % Seg Neuts % (Manual) (40.0-70.0) % Monocytes % (Manual) (0.0-7.3) % Eosinophils % (Manual) (0.0-4.3) % Eosinophils # (Manual) (0.0-0.4) K/mm3 VBG pH (7.320-7.420) Sodium (137-145) mmol/L Potassium (3.6-5.0) mmol/L Chloride (98-107) mmol/L BUN (9-20) mg/dL Creatinine (0.8-1.5) mg/dL Glucose (75-100) mg/dL POC Glucose 319 H (70-105) Lactic Acid (0.7-2.0) mmol/L Calcium (8.4-10.2) mg/dL Alkaline Phosphatase (35-129) units/L Total Protein (6.3-8.2) g/dL
[2019-05-08] MEDS: RENVELA PO SCH (17:38)
[2019-05-08] MEDS ORDERED: CATAPRES-TTS PATCH TD SCH (18:00)
[2019-05-08] MEDS ORDERED: NON-FORMULARY (Losartan Potassium [Losartan Potassium] 100 MG) PO SCH (22:00)
[2019-05-08] MEDS ORDERED: NON-FORMULARY (Metoprolol Tartrate [Metoprolol Tartrate] 75 MG) PO SCH (22:00)
[2019-05-08] MEDS ORDERED: KIONEX PO PRN (22:24)
[2019-05-08] MEDS: FEOSOL PO SCH (22:31)
[2019-05-08] MEDS: ARICEPT PO SCH (22:31)
[2019-05-08] MEDS: COZAAR PO SCH (22:31)
[2019-05-08] MEDS: KEPPRA PO SCH (22:31)
[2019-05-08] MEDS: VITAMIN C PO SCH (22:32)
[2019-05-08] MEDS: LOPRESSOR PO SCH (22:32)
[2019-05-08] MEDS: LANTUS SUB-Q SCH (22:44)
[2019-05-08] MEDS ORDERED: VANCOMYCIN PHARMACY TO DOSE IV SCH (23:00)
[2019-05-08] MEDS ORDERED: VANCOMYCIN/NS 1 GM/250 ML 1 GM/250 ML BAG IV SCH (23:00)
--- NOTE | 2019-05-09 06:50 | Progress Note ---
Assessment and Plan 1. ESRD: Patient is on maintenance hemodialysis three times a week, TTS schedule. HD today. 2. FEN: Hyperkalemia, HD today. Monitor. 3. Anemia: Epogen with HD. 4. R foot / toe gangrene: Followed by ID and Surgery. 5. DM type 2. Subjective Date of service: 05/09/19 Interval history: Patient was seen and examined at the bedside. Objective - Vital Signs Vital signs: Vital Signs - 12hr 05/08/19 05/08/19 05/08/19 21:52 22:31 22:32 Temperature 98.8 F Pulse Rate 78 78 78 Respiratory 16 Rate Blood Pressure 148/68 148/68 148/68 O2 Sat by Pulse 100 Oximetry - General Appearance General appearance: well-developed, well-nourished, appears stated age, other (no distress) EENT: ATNC, PERRL Neck: supple Respiratory: Present: Clear to Ascultation Cardiology: regular, S1S2, no murmurs Gastrointestinal: normoactive bowel sounds, no tenderness, no distended Integumentary: other (R toe gangrene) Neurologic: confused, disoriented, other (able to move extremities) Musculoskeletal: other (R foot toes gangrene, left BKA, right arm AVF) - Lab 05/09/19 08:20 05/09/19 08:20 Most recent lab results Calcium 9.8 mg/dL (8.4-10.2) 05/08/19 15:30 Medications & Allergies - Medications Allergies/Adverse Reactions: Allergies Penicillins Allergy (Verified 11/10/18 09:47) Unknown Home Medications: Home Medications Medication Instructions Recorded Confirmed Last Taken Type Ascorbic Acid [Vitamin C] 500 mg PO BID 12/27/16 05/08/19 Unknown History AtorvaSTATin [Lipitor] 40 mg PO QHS 12/27/16 05/08/19 Unknown History Ferrous Sulfate [Feosol 325 MG tab] 325 mg PO BID 12/27/16 05/08/19 Unknown History Folic Acid [Folvite] 1 mg PO QDAY 12/27/16 05/08/19 Unknown History Ondansetron [Zofran TAB] 4 mg PO Q4H PRN 12/27/16 05/08/19 Unknown History Thiamine [Vitamin B-1] 100 mg PO QDAY 12/27/16 05/08/19 Unknown History Vit B Comp No.3/Folic/C/Biotin 1 each PO DAILY 12/27/16 05/08/19 Unknown History [Cheryl-Pricilla Rx Tablet] diphenhydrAMINE [Benadryl CAP] 25 mg PO Q6HR PRN 12/27/16 05/08/19 Unknown History Insulin Lispro [HumaLOG VIAL] 20 unit SQ BID 02/14/17 05/08/19 Unknown History Insulin Lispro [Humalog 100 See Protocol SQ AC 02/14/17 05/08/19 Unknown History UNITS/ML Kwikpen] Cinacalcet [Sensipar] 30 mg PO QDAY 11/10/18 05/08/19 Unknown History Donepezil HCl 10 mg PO QHS 11/10/18 05/08/19 Unknown History Insulin Glargine,Hum.rec.anlog 44 units SQ QHS 11/10/18 05/08/19 Unknown History [Lantus] Losartan Potassium 100 mg PO QHS 11/10/18 05/08/19 Unknown History Metoprolol Tartrate 75 mg PO BID 11/10/18 05/08/19 Unknown History Sevelamer Carbonate 2,400 mg PO TIDWM 11/10/18 05/08/19 Unknown History amLODIPine [Norvasc] 10 mg PO DAILY 11/10/18 05/08/19 Unknown History cloNIDine-TTS PATCH [Catapres-Tts 1 patch TD Q7D 11/10/18 05/08/19 Unknown History 0.1MG Patch] raNITIdine HCl [Zantac] 150 mg PO QHS 11/10/18 05/08/19 Unknown History levETIRAcetam [Keppra TAB] 250 mg PO BID tablet 11/12/18 05/08/19 Unknown Rx amLODIPine [Norvasc] 10 mg PO DAILY 05/08/19 05/08/19 Unknown History Active Medications: Generic Name Dose Route Start Last Admin Trade Name Freq PRN Reason Stop Dose Admin Acetaminophen 650 mg 05/08/19 00:22 Tylenol PO Q4H PRN Pain MILD(1-3)/Fever >100.5/DINERO Amlodipine Besylate 10 mg 05/09/19 10:00 Norvasc PO DAILY [facility] Ascorbic Acid 500 mg 05/08/19 22:00 05/08/19 22:32 Vitamin C PO 500 mg BID [facility] Administration Aspirin 81 mg 05/09/19 10:00 Halfprin Ec PO QDAY [facility] Atorvastatin Calcium 40 mg 05/08/19 22:00 05/08/19 22:31 Lipitor PO 40 mg QHS [facility] Administration Cinacalcet 30 mg 05/09/19 10:00 Sensipar PO QDAY [facility] Clonidine HCl 0.1 mg 05/12/19 10:00 Catapres-Tts Patch TD Fr [facility] Dextrose 50 ml 05/08/19 06:49 D50w (25gm) Syringe IV PRN PRN Hypoglycemia Diphenhydramine HCl 25 mg 05/08/19 16:25 05/08/19 22:31 Benadryl PO 25 mg Q6HR PRN Administration Itching Donepezil HCl 10 mg 05/08/19 22:00 05/08/19 22:31 Aricept PO 10 mg QHS [facility] Administration Enoxaparin Sodium 30 mg 05/08/19 10:00 05/08/19 15:19 Lovenox SUB-Q 30 mg QDAY [facility] Administration Ferrous Sulfate 325 mg 05/08/19 22:00 05/08/19 22:31 Feosol PO 325 mg BID [facility] Administration Folic Acid 1 mg 05/09/19 10:00 Folvite PO QDAY [facility] Insulin Glargine 44 units 05/08/19 22:00 05/08/19 22:44 Lantus SUB-Q Not Given QHS [facility] Insulin Human Lispro 0 unit 05/08/19 07:30 05/08/19 22:34 Humalog SUB-Q 3 unit ACHS [facility] Administration Protocol Insulin Human Lispro 5 unit 05/08/19 17:00 05/08/19 17:38 Humalog SUB-Q 5 unit AC [facility] Administration Levetiracetam 250 mg 05/08/19 22:00 05/08/19 22:31 Keppra PO 250 mg BID [facility] Administration Losartan Potassium 100 mg 05/08/19 22:00 05/08/19 22:31 Cozaar PO 100 mg HS [facility] Administration Metoprolol Tartrate 75 mg 05/08/19 22:00 05/08/19 22:32 Lopressor PO 75 mg BID [facility] Administration Multivit/Ca Carb/B Cmplx/FA/Prenat 1 cap 05/09/19 10:00 Renal Caps PO QDAY [facility] Ondansetron HCl 4 mg 05/08/19 00:22 Zofran IV Q8H PRN Nausea And Vomiting Ondansetron HCl 4 mg 05/08/19 16:38 Zofran Odt PO Q4H PRN Nausea And Vomiting Oxycodone/Acetaminophen 1 tab 05/08/19 00:22 Percocet 5/325 PO Q6H PRN Pain, Moderate (4-6) Sevelamer Carbonate 2,400 mg 05/08/19 17:00 05/08/19 17:38 Renvela PO 2,400 mg TIDWM [facility] Administration Sodium Chloride 10 ml 05/08/19 10:00 05/08/19 22:33 Sodium Chloride Flush Syringe 10 Ml IV 10 ml BID [facility] Administration Sodium Chloride 10 ml 05/08/19 00:22 Sodium Chloride Flush Syringe 10 Ml IV PRN PRN LINE FLUSH Sodium Polystyrene Sulfonate 15 gm 05/08/19 22:24 Kionex PO Q6H PRN Hyperkalemia Thiamine HCl 100 mg 05/09/19 10:00 Vitamin B-1 PO QDAY [facility]
[2019-05-09] MEDS ORDERED: PROCRIT SUB-Q PRN (06:51)
[2019-05-09] MEDS ORDERED: HEPARIN IV PRN (06:51)
[2019-05-09] MEDS ORDERED: NACL 0.9% 100 ML IV PRN ×2 (06:51→10:08)
[2019-05-09 08:42] LABS: Basophils # (Auto) 0.1 K/mm3 (0.0-0.1); Basophils % (Auto) 0.8 % (0.0-1.8); Eosinophils # (Auto) 0.3 K/mm3 (0.0-0.4); Eosinophils % (Auto) 4.6 % (0.0-4.3); Hematocrit 30.8 % (35.5-45.6); Hemoglobin 9.9 gm/dl (11.8-15.2); Lymphocytes # (Auto) 1.4 K/mm3 (1.2-5.4); Lymphocytes % (Auto) 21.3 % (13.4-35.0); Mean Corpuscular HGB Conc 32 % (32-34); Mean Corpuscular Volume 83 fl (84-94); Monocytes # (Auto) 0.4 K/mm3 (0.0-0.8); Monocytes % (Auto) 6.6 % (0.0-7.3); Platelet Count 285 K/mm3 (140-440); Red Cell Distribution Width 16.3 % (13.2-15.2)
[2019-05-09 08:54] LABS: Calcium 9.7 mg/dL (8.4-10.2)
[2019-05-09] MEDS: HumaLOG SUB-Q SCH ×7 (09:44→23:58)
[2019-05-09] MEDS ORDERED: NON-FORMULARY (Vit B Comp No.3/Folic/C/Biotin [Rena-Vite Rx Tablet] 1 EACH) PO SCH (10:00)
--- NOTE | 2019-05-09 10:00 | Progress Note ---
Assessment and Plan Cultures: 05/07/19 BCX - NGTD A/P: 58 yo M PMhx PAD, ESRD on HD TTS, dementia, DM2, remote L BKA admitted to the hospital from his long term with R toe drainage and osteomyelitis. 1. Osteomyelitis of the R great toe - in the setting of gangrene. Patient is cur rently stable, as such would stop the levofloxacin in order to increase the yield of obtained cultures. General surgery has seen the patient, appreciate their recs. Depending on their course of action we can decide on antibiotics, but there is no need for them acutely. It will be difficult to heal the osteomyelitis medically if he has poor blood flow to the bone. High risk of limb loss. Vascular on board: arterial studies show intact flow into the foot but possible inflow disease. CTA ordered to evaluate for arterial insufficiency. Agree with surgical recommendation for transmetatarsal amputation right great toe and possible BKA/AKA in light of his non-ambulatory status and questionable distal perfusion. 2. Gangrene of R great toe 3. ESRD on HD 4. DM2 5. PAD 6. Dementia Recs: - Continue off antibiotics - when surgery is performed please send for aerobic/anaerobic cultures in addition to pathology [facility] M: [phone] O:[phone] Subjective Date of service: 05/09/19 Interval history: Patient seen and examined. Sitting up in bed. Reports dull pain in right foot. No fevers. Objective - Exam Narrative Exam: Constitutional: Alert, cooperative. Dull right foot pain Head, Ears, Nose: Normocephalic, atraumatic. External ears, nose normal Eyes: Conjunctivae/corneas clear. No icterus. No ptosis. Neck: Supple, no meningeal signs Oral: dentition fair, no thrush Cardiovascular: S1, S2 normal. Respiratory: Good air entry, clear to auscultation bilaterally GI: Soft, non-tender; bowel sounds normal. No peritoneal signs. Musculoskeletal: No pedal edema, no cyanosis. Dry, gangrenous toe. No acute ulcer. Skin: No rash or abscess Hem/Lymphatic: No palpable cervical or supraclavicular nodes. No lymphangitis Psych: Mood ok. Affect normal Neurological: Awake, alert, oriented. No gross abnormality - Constitutional Vitals: Vital Signs Temp Pulse Resp BP Pulse Ox 98.8 F 78 16 148/68 100 05/08/19 21:52 05/08/19 22:32 05/08/19 21:52 05/08/19 22:32 05/08/19 21:52 Temperature -Last 24 Hours Temperature 98.8 F Temperature 97.9 F Temperature 98.8 F - Labs CBC & Chem 7: 05/09/19 08:20 05/09/19 08:20 Labs: Abnormal lab results 05/08/19 05/08/19 05/08/19 Range/Units 11:06 15:30 15:30 Hgb 10.3 L (11.8-15.2) gm/dl Hct 32.4 L (35.5-45.6) % MCV (84-94) fl MCH 27 L (28-32) pg RDW 16.9 H (13.2-15.2) % Eos % (Auto) (0.0-4.3) % Seg Neuts % (Manual) 71.0 H (40.0-70.0) % Sodium 135 L (137-145) mmol/L Potassium 5.7 H D (3.6-5.0) mmol/L Chloride 94.8 L (98-107) mmol/L BUN 38 H (9-20) mg/dL Creatinine 8.6 H (0.8-1.5) mg/dL Glucose 264 H (75-100) mg/dL POC Glucose 242 H (70-105) 05/08/19 05/08/19 05/09/19 Range/Units 16:54 21:58 08:17 Hgb (11.8-15.2) gm/dl Hct (35.5-45.6) % MCV (84-94) fl MCH (28-32) pg RDW (13.2-15.2) % Eos % (Auto) (0.0-4.3) % Seg Neuts % (Manual) (40.0-70.0) % Sodium (137-145) mmol/L Potassium (3.6-5.0) mmol/L Chloride (98-107) mmol/L BUN (9-20) mg/dL Creatinine (0.8-1.5) mg/dL Glucose (75-100) mg/dL POC Glucose 319 H 231 H 225 H (70-105) 05/09/19 05/09/19 Range/Units 08:20 08:20 Hgb 9.9 L (11.8-15.2) gm/dl Hct 30.8 L (35.5-45.6) % MCV 83 L (84-94) fl MCH 27 L (28-32) pg RDW 16.3 H (13.2-15.2) % Eos % (Auto) 4.6 H (0.0-4.3) % Seg Neuts % (Manual) (40.0-70.0) % Sodium 133 L (137-145) mmol/L Potassium 5.6 H (3.6-5.0) mmol/L Chloride 93.8 L (98-107) mmol/L BUN 51 H (9-20) mg/dL Creatinine 9.6 H (0.8-1.5) mg/dL Glucose 238 H (75-100) mg/dL POC Glucose (70-105)
[2019-05-09] MEDS: RENVELA PO SCH ×3 (10:16→18:04)
[2019-05-09] MEDS: FOLVITE PO SCH (10:16)
[2019-05-09] MEDS: HALFPRIN EC PO SCH (10:16)
[2019-05-09] MEDS: Renal Caps PO SCH (10:16)
[2019-05-09] MEDS: FEOSOL PO SCH ×2 (10:16→21:50)
[2019-05-09] MEDS: VITAMIN C PO SCH ×2 (10:17→21:50)
[2019-05-09] MEDS: LOVENOX SUB-Q SCH (10:17)
[2019-05-09] MEDS: KEPPRA PO SCH ×2 (10:17→21:51)
[2019-05-09] MEDS: SENSIPAR PO SCH (10:18)
[2019-05-09] MEDS: SODIUM CHLORIDE FLUSH SYRINGE 10 ML IV SCH ×2 (10:18→21:52)
[2019-05-09] MEDS: VITAMIN B-1 PO SCH (10:18)
[2019-05-09] MEDS: LOPRESSOR PO SCH ×2 (10:22→21:50)
[2019-05-09] MEDS: NORVASC PO SCH (10:23)
[2019-05-09] MEDS ORDERED: NACL 0.9 (PRIMING MACHINE ONLY DIALYSIS) MC ONE (11:48)
[2019-05-09 12:19] LABS: Hepatitis C Virus Antibody Non-Reactive (NonReactive)
[2019-05-09 13:01] LABS: Hepatitis B Surface Antigen Non-Reactive (Negative)
--- NOTE | 2019-05-09 13:13 | Consultation ---
History of Present Illness Consult date: 05/09/19 - History of present illness History of present illness: 58 yo diabetic male s/p left BKA. Now with a right great toe ulcer and (+) osteomyelitis on plain x-ray of right great toe. Past History Past Medical History: diabetes, dialysis, ESRD, hypertension, hyperlipidemia Past Surgical History: Other (L BKA) Social history: smoking. denies: alcohol abuse Family history: diabetes Medications and Allergies Allergies Allergy/AdvReac Type Severity Reaction Status Date / Time Penicillins Allergy Unknown Verified 11/10/18 09:47 Home Medications Medication Instructions Recorded Confirmed Last Taken Type Ascorbic Acid [Vitamin C] 500 mg PO BID 12/27/16 05/08/19 Unknown History AtorvaSTATin [Lipitor] 40 mg PO QHS 12/27/16 05/08/19 Unknown History Ferrous Sulfate [Feosol 325 MG tab] 325 mg PO BID 12/27/16 05/08/19 Unknown History Folic Acid [Folvite] 1 mg PO QDAY 12/27/16 05/08/19 Unknown History Ondansetron [Zofran TAB] 4 mg PO Q4H PRN 12/27/16 05/08/19 Unknown History Thiamine [Vitamin B-1] 100 mg PO QDAY 12/27/16 05/08/19 Unknown History Vit B Comp No.3/Folic/C/Biotin 1 each PO DAILY 12/27/16 05/08/19 Unknown History [Cheryl-Pricilla Rx Tablet] diphenhydrAMINE [Benadryl CAP] 25 mg PO Q6HR PRN 12/27/16 05/08/19 Unknown History Insulin Lispro [HumaLOG VIAL] 20 unit SQ BID 02/14/17 05/08/19 Unknown History Insulin Lispro [Humalog 100 See Protocol SQ AC 02/14/17 05/08/19 Unknown History UNITS/ML Kwikpen] Cinacalcet [Sensipar] 30 mg PO QDAY 11/10/18 05/08/19 Unknown History Donepezil HCl 10 mg PO QHS 11/10/18 05/08/19 Unknown History Insulin Glargine,Hum.rec.anlog 44 units SQ QHS 11/10/18 05/08/19 Unknown History [Lantus] Losartan Potassium 100 mg PO QHS 11/10/18 05/08/19 Unknown History Metoprolol Tartrate 75 mg PO BID 11/10/18 05/08/19 Unknown History Sevelamer Carbonate 2,400 mg PO TIDWM 11/10/18 05/08/19 Unknown History amLODIPine [Norvasc] 10 mg PO DAILY 11/10/18 05/08/19 Unknown History cloNIDine-TTS PATCH [Catapres-Tts 1 patch TD Q7D 11/10/18 05/08/19 Unknown History 0.1MG Patch] raNITIdine HCl [Zantac] 150 mg PO QHS 11/10/18 05/08/19 Unknown History levETIRAcetam [Keppra TAB] 250 mg PO BID tablet 11/12/18 05/08/19 Unknown Rx amLODIPine [Norvasc] 10 mg PO DAILY 05/08/19 05/08/19 Unknown History Active Meds: Active Medications Acetaminophen (Tylenol) 650 mg PO Q4H PRN PRN Reason: Pain MILD(1-3)/Fever >100.5/DINERO Amlodipine Besylate (Norvasc) 10 mg PO DAILY [facility] Last Admin: 05/09/19 10:23 Dose: 10 mg Documented by: Ascorbic Acid (Vitamin C) 500 mg PO BID [facility] Last Admin: 05/09/19 10:17 Dose: 500 mg Documented by: Aspirin (Halfprin Ec) 81 mg PO QDAY [facility] Last Admin: 05/09/19 10:16 Dose: 81 mg Documented by: Atorvastatin Calcium (Lipitor) 40 mg PO QHS [facility] Last Admin: 05/08/19 22:31 Dose: 40 mg Documented by: Cinacalcet (Sensipar) 30 mg PO QDAY [facility] Last Admin: 05/09/19 10:18 Dose: 30 mg Documented by: Clonidine HCl (Catapres-Tts Patch) 0.1 mg TD Fr [facility] Dextrose (D50w (25gm) Syringe) 50 ml IV PRN PRN PRN Reason: Hypoglycemia Diphenhydramine HCl (Benadryl) 25 mg PO Q6HR PRN PRN Reason: Itching Last Admin: 05/08/19 22:31 Dose: 25 mg Documented by: Donepezil HCl (Aricept) 10 mg PO QHS [facility] Last Admin: 05/08/19 22:31 Dose: 10 mg Documented by: Enoxaparin Sodium (Lovenox) 30 mg SUB-Q QDAY [facility] Last Admin: 05/09/19 10:17 Dose: 30 mg Documented by: Epoetin Darvin (Procrit) 10,000 unit SUB-Q [facility] PRN PRN Reason: hemodialysis Ferrous Sulfate (Feosol) 325 mg PO BID [facility] Last Admin: 05/09/19 10:16 Dose: 325 mg Documented by: Folic Acid (Folvite) 1 mg PO QDAY [facility] Last Admin: 05/09/19 10:16 Dose: 1 mg Documented by: Heparin Sodium (Porcine) (Heparin) 2,000 unit IV CORBY PRN PRN Reason: hemodialysis Sodium Chloride (Nacl 0.9%) 100 mls @ 999 mls/hr IV CORBY PRN PRN Reason: Hypotension Insulin [facility] ([facility]us) [facility] Admin: 05/08/19 22:44 Dose: Not Given Documented by: Insulin Human Lispro (Humalog) 0 unit SUB-Q [facility]; Protocol Last Admin: 05/09/19 09:44 Dose: 3 unit Documented by: Insulin Human Lispro (Humalog) 5 unit SUB-Q [facility] Last Admin: 05/09/19 09:44 Dose: 5 unit Documented by: Levetiracetam (Keppra) 250 mg PO BID [facility] Last Admin: 05/09/19 10:17 Dose: 250 mg Documented by: Losartan Potassium (Cozaar) 100 mg PO [facility] Last Admin: 05/08/19 22:31 Dose: 100 mg Documented by: Metoprolol Tartrate (Lopressor) 75 mg PO BID [facility] Last Admin: 05/09/19 10:22 Dose: 75 mg Documented by: Multivit/Ca Carb/B Cmplx/FA/Prenat (Renal Caps) 1 cap PO QDAY [facility] Last Admin: 05/09/19 10:16 Dose: 1 cap Documented by: Ondansetron HCl (Zofran) 4 mg IV Q8H PRN PRN Reason: Nausea And Vomiting Ondansetron HCl (Zofran Odt) 4 mg PO Q4H PRN PRN Reason: Nausea And Vomiting Oxycodone/Acetaminophen (Percocet 5/325) 1 tab PO Q6H PRN PRN Reason: Pain, Moderate (4-6) Sevelamer Carbonate (Renvela) 2,400 mg PO TIDWM [facility] Last Admin: 05/09/19 10:16 Dose: 2,400 mg Documented by: Sodium Chloride (Sodium Chloride Flush Syringe 10 Ml) 10 ml IV BID [facility] Last Admin: 05/09/19 10:18 Dose: 10 ml Documented by: Sodium Chloride (Sodium Chloride Flush Syringe 10 Ml) 10 ml IV PRN PRN PRN Reason: LINE FLUSH Sodium Polystyrene Sulfonate (Kionex) 15 gm PO Q6H PRN PRN Reason: Hyperkalemia Thiamine HCl (Vitamin B-1) 100 mg PO QDAY [facility] Last Admin: 05/09/19 10:18 Dose: 100 mg Documented by: Review of Systems ROS unobtainable: due to mental status Exam Vital Signs Pulse Resp Pulse Ox 70 19 79 L 05/07/19 17:47 05/07/19 17:47 05/07/19 17:47 - General physical appearance Positive: well developed, well nourished, no distress - Eyes Positive: PERRL, normal occular movement - ENT Positive: normal pinna, normal nares, normal mucosa, no hearing loss, no congestion - Neck Positive: no masses, no bruits, trachea midline, no venous distension - Respiratory Positive: normal expansion, normal respiratory effort, clear to auscultation - Cardiovascular Rhythm: regular Heart Sounds: Present: S1 & S2. Absent: rub, click - Extremities Extremity abnormal: other (I cannot palpate his right DP or PT pulses. There is a 3 cm slightly wet eschar along the medial aspect of his right great toe. There is a small amount of purulent drainage about this eschar. There is 2 + edema about the ankle.) - Breasts Breasts: deferred - Abdomen Abdomen: Present: soft, bowel sounds normal. Absent: tender, distended Hernia: none - Genitourinary Male Genitourinary: deferred - Neurologic Neurologic: other (Oriented to person and place only.) - Musculoskeletal other (S/p left BKA) - Psychiatric Psychiatric: appropriate mood/affect, cooperative Results - Labs 05/09/19 08:20 05/09/19 08:20 Abnormal lab results 05/08/19 05/08/19 05/08/19 Range/Units 15:30 15:30 16:54 Hgb 10.3 L (11.8-15.2) gm/dl Hct 32.4 L (35.5-45.6) % MCV (84-94) fl MCH 27 L (28-32) pg RDW 16.9 H (13.2-15.2) % Eos % (Auto) (0.0-4.3) % Seg Neuts % (Manual) 71.0 H (40.0-70.0) % Sodium 135 L (137-145) mmol/L Potassium 5.7 H D (3.6-5.0) mmol/L Chloride 94.8 L (98-107) mmol/L BUN 38 H (9-20) mg/dL Creatinine 8.6 H (0.8-1.5) mg/dL Glucose 264 H (75-100) mg/dL POC Glucose 319 H (70-105) 05/08/19 05/09/19 05/09/19 Range/Units 21:58 08:17 08:20 Hgb 9.9 L (11.8-15.2) gm/dl Hct 30.8 L (35.5-45.6) % MCV 83 L (84-94) fl MCH 27 L (28-32) pg RDW 16.3 H (13.2-15.2) % Eos % (Auto) 4.6 H (0.0-4.3) % Seg Neuts % (Manual) (40.0-70.0) % Sodium (137-145) mmol/L Potassium (3.6-5.0) mmol/L Chloride (98-107) mmol/L BUN (9-20) mg/dL Creatinine (0.8-1.5) mg/dL Glucose (75-100) mg/dL POC Glucose 231 H 225 H (70-105) 05/09/19 Range/Units 08:20 Hgb (11.8-15.2) gm/dl Hct (35.5-45.6) % MCV (84-94) fl MCH (28-32) pg RDW (13.2-15.2) % Eos % (Auto) (0.0-4.3) % Seg Neuts % (Manual) (40.0-70.0) % Sodium 133 L (137-145) mmol/L Potassium 5.6 H (3.6-5.0) mmol/L Chloride 93.8 L (98-107) mmol/L BUN 51 H (9-20) mg/dL Creatinine 9.6 H (0.8-1.5) mg/dL Glucose 238 H (75-100) mg/dL POC Glucose (70-105) Diabetes panel 05/08/19 05/09/19 Range/Units 15:30 08:20 Sodium 135 L 133 L (137-145) mmol/L Potassium 5.7 H D 5.6 H (3.6-5.0) mmol/L Chloride 94.8 L 93.8 L (98-107) mmol/L Carbon Dioxide 24 23 (22-30) mmol/L BUN 38 H 51 H (9-20) mg/dL Creatinine 8.6 H 9.6 H (0.8-1.5) mg/dL Glucose 264 H 238 H (75-100) mg/dL Calcium 9.8 9.7 (8.4-10.2) mg/dL Calcium panel 05/08/19 05/09/19 Range/Units 15:30 08:20 Calcium 9.8 9.7 (8.4-10.2) mg/dL Pituitary panel 05/08/19 05/09/19 Range/Units 15:30 08:20 Sodium 135 L 133 L (137-145) mmol/L Potassium 5.7 H D 5.6 H (3.6-5.0) mmol/L Chloride 94.8 L 93.8 L (98-107) mmol/L Carbon Dioxide 24 23 (22-30) mmol/L BUN 38 H 51 H (9-20) mg/dL Creatinine 8.6 H 9.6 H (0.8-1.5) mg/dL Glucose 264 H 238 H (75-100) mg/dL Calcium 9.8 9.7 (8.4-10.2) mg/dL Adrenal panel 05/08/19 05/09/19 Range/Units 15:30 08:20 Sodium 135 L 133 L (137-145) mmol/L Potassium 5.7 H D 5.6 H (3.6-5.0) mmol/L Chloride 94.8 L 93.8 L (98-107) mmol/L Carbon Dioxide 24 23 (22-30) mmol/L BUN 38 H 51 H (9-20) mg/dL Creatinine 8.6 H 9.6 H (0.8-1.5) mg/dL Glucose 264 H 238 H (75-100) mg/dL Calcium 9.8 9.7 (8.4-10.2) mg/dL Assessment and Plan - Patient Problems (1) Foot ulcer, right Current Visit: Yes Status: Acute Plan to address problem: 1) CT angiogram as recommended by Vascular 2) After the need for possible revascularization is assessed, I will discuss with the pt's next of kin on how we will proceed. I would recommend at least a transmetatarsal amputation of his right great toe. A BKA/AKA could also be performed in light of his non-ambulatory status and questionable distal perfus ion.
--- NOTE | 2019-05-09 13:45 | Event Note ---
Date: 05/09/19 Patient with monophasic flow throughout right lower extremity on arterial duplex. CTA Abd/pelvis ordered per vascular surgery. Patient with full thickness gangrene of right great toe and wound of 2nd toe with osteomyelitis. He is nonambulatory. Recommend consult to Dr. Juarez for evaluation for amputation.
--- NOTE | 2019-05-09 14:55 | Progress Note ---
Assessment and Plan Osteomylitis with dry gangrene of right foot -Vascular was consulted to see the patient for possible vascular procedure is planned for CTA first- Place on vanco Consult ID and GS- planned for TMA versus left BKA pending vascular workup end-stage renal disease on dialysis - Nephrology for HD consulted hypertension, stable, monitor BP diabetes type 2, check fingersticks, initiate insulin sliding-scale GERD, PPI peripheral vascular disease s/p left BKA - cont asp, statin dementia , supportive care DVT prophylaxis, heparin Brief History: 58 yo M PMhx PAD, ESRD on HD TTS, dementia, DM2, remote L BKA admitted to the hospital from his alf with R toe drainage. According to family members the alf has been dressing the wounds for approximately the past 3 weeks. it is unclear if he received any antibiotics while at the alf. In the ER extremities the right foot was highly suggestive for osteomyelitis, patient was admitted for further evaluation and management Radiological data: xry right foot: Small areas of lucency and cortical irregularity involving the proximal and distal phalanx of the great toe adjacent to the interphalangeal joint, highly suggestive for osteomyelitis. Please correlate clinically. Hospitalist Physical exam: General Apperance: The patient sitting in bed no acute distress HEENT: Normocephalic, atraumatic. Pupils equally round and reactive to light, extraocular movement intact, and no sclericterus or JVD or thyromegaly or nodule. Neck supple, no carotid bruit, mucous membranes moist, no exudate or erythema Heart: S1-S2, regular is rhythm Lungs: Clear to auscultation bilaterally, breathing comfortable Abdomen: Positive bowel sounds, soft, nontender, nondistended, no organomegaly Extremities: Wounds on the right great and second toe, no drainage, discolration foot,left BKA, No edema Skin: no rash, nodule, warm and dry Neuro: No focal deficit Subjective Date of service: 05/09/19 Interval history: Patient seen and examined. Medical records and medication list reviewed. No acute event overnight noted by the RN. Patient denies any chest pain or difficulty breathing. Patient is tolerating diet. States that cannot feel any pain of the foot Discussed plan of care at bedside with patient. Objective - Constitutional Vitals: Vital Signs - 12hr 05/09/19 05/09/19 05/09/19 10:22 10:50 11:00 Temperature 98 F Pulse Rate 75 73 73 Respiratory 18 Rate Blood Pressure 145/58 115/63 120/59 05/09/19 05/09/19 05/09/19 11:15 11:30 11:45 Temperature Pulse Rate 84 81 83 Respiratory Rate Blood Pressure 141/74 134/72 134/75 05/09/19 05/09/19 12:00 12:15 Temperature Pulse Rate 85 80 Respiratory Rate Blood Pressure 146/80 146/82 - Labs CBC & Chem 7: 05/09/19 08:20 05/09/19 08:20 Labs: Abnormal lab results 05/08/19 05/08/19 05/08/19 Range/Units 15:30 15:30 16:54 Hgb 10.3 L (11.8-15.2) gm/dl Hct 32.4 L (35.5-45.6) % MCV (84-94) fl MCH 27 L (28-32) pg RDW 16.9 H (13.2-15.2) % Eos % (Auto) (0.0-4.3) % Seg Neuts % (Manual) 71.0 H (40.0-70.0) % Sodium 135 L (137-145) mmol/L Potassium 5.7 H D (3.6-5.0) mmol/L Chloride 94.8 L (98-107) mmol/L BUN 38 H (9-20) mg/dL Creatinine 8.6 H (0.8-1.5) mg/dL Glucose 264 H (75-100) mg/dL POC Glucose 319 H (70-105) 05/08/19 05/09/19 05/09/19 Range/Units 21:58 08:17 08:20 Hgb 9.9 L (11.8-15.2) gm/dl Hct 30.8 L (35.5-45.6) % MCV 83 L (84-94) fl MCH 27 L (28-32) pg RDW 16.3 H (13.2-15.2) % Eos % (Auto) 4.6 H (0.0-4.3) % Seg Neuts % (Manual) (40.0-70.0) % Sodium (137-145) mmol/L Potassium (3.6-5.0) mmol/L Chloride (98-107) mmol/L BUN (9-20) mg/dL Creatinine (0.8-1.5) mg/dL Glucose (75-100) mg/dL POC Glucose 231 H 225 H (70-105) 05/09/ Range/Units 08:20 Hgb (11.8-15.2) gm/dl Hct (35.5-45.6) % MCV (84-94) fl MCH (28-32) pg RDW (13.2-15.2) % Eos % (Auto) (0.0-4.3) % Seg Neuts % (Manual) (40.0-70.0) % Sodium 133 L (137-145) mmol/L Potassium 5.6 H (3.6-5.0) mmol/L Chloride 93.8 L (98-107) mmol/L BUN 51 H (9-20) mg/dL Creatinine 9.6 H (0.8-1.5) mg/dL Glucose 238 H (75-100) mg/dL POC Glucose (70-105)
[2019-05-09] MEDS: COZAAR PO SCH (21:50)
[2019-05-09] MEDS: ARICEPT PO SCH (21:51)
[2019-05-09] MEDS: LANTUS SUB-Q SCH (23:58)
[2019-05-10 06:14] LABS: Calcium 9.9 mg/dL (8.4-10.2)
[2019-05-10] MEDS: HumaLOG SUB-Q SCH ×7 (07:30→21:42)
[2019-05-10] MEDS: RENVELA PO SCH ×3 (09:11→18:46)
[2019-05-10] MEDS: PERCOCET 5/325 PO PRN ×2 (09:11→18:43)
[2019-05-10] MEDS: LOPRESSOR PO SCH ×2 (10:50→21:47)
--- NOTE | 2019-05-10 10:54 | Progress Note ---
Assessment and Plan 1. ESRD: Patient is on maintenance hemodialysis three times a week, TTS schedule. 2. FEN: Hyperkalemia, s/p HD yesterday. Monitor. 3. Anemia: Epogen with HD. 4. R foot / toe gangrene: Followed by ID and Surgery. 5. Hyperparathyroidism: Cinacalcet. 6. DM type 2. Subjective Date of service: 05/10/19 Interval history: Patient was seen and examined at the bedside. Refusing treatments. Objective - Vital Signs Vital signs: Vital Signs - 12hr 05/10/19 05/10/19 05:37 07:55 Temperature 98.8 F Pulse Rate 68 Respiratory 16 Rate Blood Pressure 112/60 [Left] O2 Sat by Pulse 100 100 Oximetry - General Appearance General appearance: well-developed, well-nourished, appears stated age, other (no distress, limited exam as patient refusing) EENT: ATNC, PERRL Respiratory: Present: Clear to Ascultation Cardiology: regular, S1S2, no murmurs - Lab 05/09/19 08:20 05/10/19 05:36 Most recent lab results Calcium 9.9 mg/dL (8.4-10.2) 05/10/19 05:36 Medications & Allergies - Medications Allergies/Adverse Reactions: Allergies Penicillins Allergy (Verified 11/10/18 09:47) Unknown Home Medications: Home Medications Medication Instructions Recorded Confirmed Last Taken Type Ascorbic Acid [Vitamin C] 500 mg PO BID 12/27/16 05/08/19 Unknown History AtorvaSTATin [Lipitor] 40 mg PO QHS 12/27/16 05/08/19 Unknown History Ferrous Sulfate [Feosol 325 MG tab] 325 mg PO BID 12/27/16 05/08/19 Unknown History Folic Acid [Folvite] 1 mg PO QDAY 12/27/16 05/08/19 Unknown History Ondansetron [Zofran TAB] 4 mg PO Q4H PRN 12/27/16 05/08/19 Unknown History Thiamine [Vitamin B-1] 100 mg PO QDAY 12/27/16 05/08/19 Unknown History Vit B Comp No.3/Folic/C/Biotin 1 each PO DAILY 12/27/16 05/08/19 Unknown History [Cheryl-Pricilla Rx Tablet] diphenhydrAMINE [Benadryl CAP] 25 mg PO Q6HR PRN 12/27/16 05/08/19 Unknown History Insulin Lispro [HumaLOG VIAL] 20 unit SQ BID 02/14/17 05/08/19 Unknown History Insulin Lispro [Humalog 100 See Protocol SQ AC 02/14/17 05/08/19 Unknown History UNITS/ML Kwikpen] Cinacalcet [Sensipar] 30 mg PO QDAY 11/10/18 05/08/19 Unknown History Donepezil HCl 10 mg PO QHS 11/10/18 05/08/19 Unknown History Insulin Glargine,Hum.rec.anlog 44 units SQ QHS 11/10/18 05/08/19 Unknown History [Lantus] Losartan Potassium 100 mg PO QHS 11/10/18 05/08/19 Unknown History Metoprolol Tartrate 75 mg PO BID 11/10/18 05/08/19 Unknown History Sevelamer Carbonate 2,400 mg PO TIDWM 11/10/18 05/08/19 Unknown History amLODIPine [Norvasc] 10 mg PO DAILY 11/10/18 05/08/19 Unknown History cloNIDine-TTS PATCH [Catapres-Tts 1 patch TD Q7D 11/10/18 05/08/19 Unknown History 0.1MG Patch] raNITIdine HCl [Zantac] 150 mg PO QHS 11/10/18 05/08/19 Unknown History levETIRAcetam [Keppra TAB] 250 mg PO BID tablet 11/12/18 05/08/19 Unknown Rx amLODIPine [Norvasc] 10 mg PO DAILY 05/08/19 05/08/19 Unknown History Active Medications: Generic Name Dose Route Start Last Admin Trade Name Freq PRN Reason Stop Dose Admin Acetaminophen 650 mg 05/08/19 00:22 Tylenol PO Q4H PRN Pain MILD(1-3)/Fever >100.5/DINERO Amlodipine Besylate 10 mg 05/09/19 10:00 05/09/19 10:23 Norvasc PO 10 mg DAILY [facility] Administration Ascorbic Acid 500 mg 05/08/19 22:00 05/09/19 21:50 Vitamin C PO 500 mg BID [facility] Administration Aspirin 81 mg 05/09/19 10:00 05/09/19 10:16 Halfprin Ec PO 81 mg QDAY [facility] Administration Atorvastatin Calcium 40 mg 05/08/19 22:00 05/09/19 21:49 Lipitor PO 40 mg QHS [facility] Administration Cinacalcet 30 mg 05/09/19 10:00 05/09/19 10:18 Sensipar PO 30 mg QDAY [facility] Administration Clonidine HCl 0.1 mg 05/12/19 10:00 Catapres-Tts Patch TD Fr [facility] Dextrose 50 ml 05/08/19 06:49 D50w (25gm) Syringe IV PRN PRN Hypoglycemia Diphenhydramine HCl 25 mg 05/08/19 16:25 05/08/19 22:31 Benadryl PO 25 mg Q6HR PRN Administration Itching Donepezil HCl 10 mg 05/08/19 22:00 05/09/19 21:51 Aricept PO 10 mg QHS [facility] Administration Enoxaparin Sodium 30 mg 05/08/19 10:00 05/09/19 10:17 Lovenox SUB-Q 30 mg QDAY [facility] Administration Epoetin Darvin 10,000 unit 05/09/19 06:51 05/09/19 13:45 Procrit SUB-Q 10,000 unit [facility] PRN Administration hemodialysis Ferrous Sulfate 325 mg 05/08/19 22:00 05/09/19 21:50 Feosol PO 325 mg BID [facility] Administration Folic Acid 1 mg 05/09/19 10:00 05/09/19 10:16 Folvite PO 1 mg QDAY [facility] Administration Heparin Sodium (Porcine) 2,000 unit 05/09/19 06:51 05/09/19 10:50 Heparin IV 2,000 unit [facility] PRN Administration hemodialysis Sodium Chloride 100 mls @ 999 mls/hr 05/09/19 10:08 Nacl 0.9% IV [facility] PRN Hypotension Insulin Glargine 44 units 05/08/19 22:00 05/09/19 23:58 Lantus SUB-Q 44 units QHS [facility] Administration Insulin Human Lispro 0 unit 05/08/19 07:30 05/09/19 23:58 Humalog SUB-Q 3 unit [facility]S [facility] Administration Protocol Insulin Human Lispro 5 unit 05/08/19 17:00 05/09/19 19:22 Humalog SUB-Q 5 unit AC [facility] Administration Levetiracetam 250 mg 05/08/19 22:00 05/09/19 21:51 Keppra PO 250 mg BID [facility] Administration Losartan Potassium 100 mg 05/08/19 22:00 05/09/19 21:50 Cozaar PO 100 mg HS [facility] Administration Metoprolol Tartrate 75 mg 05/08/19 22:00 05/09/19 21:50 Lopressor PO 75 mg BID [facility] Administration Multivit/Ca Carb/B Cmplx/FA/Prenat 1 cap 05/09/19 10:00 05/09/19 10:16 Renal Caps PO 1 cap QDAY [facility] Administration Ondansetron HCl 4 mg 05/08/19 00:22 Zofran IV Q8H PRN Nausea And Vomiting Ondansetron HCl 4 mg 05/08/19 16:38 Zofran Odt PO Q4H PRN Nausea And Vomiting Oxycodone/Acetaminophen 1 tab 05/08/19 00:22 05/10/19 09:11 Percocet 5/325 PO 1 tab Q6H PRN Administration Pain, Moderate (4-6) Sevelamer Carbonate 2,400 mg 05/08/19 17:00 05/10/19 09:11 Renvela PO 2,400 mg TIDWM [facility] Administration Sodium Chloride 10 ml 05/08/19 10:00 05/09/19 21:52 Sodium Chloride Flush Syringe 10 Ml IV 10 ml BID [facility] Administration Sodium Chloride 10 ml 05/08/19 00:22 Sodium Chloride Flush Syringe 10 Ml IV PRN PRN LINE FLUSH Sodium Polystyrene Sulfonate 15 gm 05/08/19 22:24 Kionex PO Q6H PRN Hyperkalemia Thiamine HCl 100 mg 05/09/19 10:00 05/09/19 10:18 Vitamin B-1 PO 100 mg QDAY [facility] Administration
--- NOTE | 2019-05-10 13:16 | Progress Note ---
Assessment and Plan - Patient Problems (1) Foot ulcer, right Current Visit: Yes Status: Acute Plan to address problem: 1) Awaiting CT angio of RLE. 2) Proposed surgery as per yesterday's note. Subjective Date of service: 05/10/19 Patient Reports: Positive: no new complaints Objective Vital Signs - 12hr 05/10/19 05/10/19 05:37 07:55 Temperature 98.8 F Pulse Rate 68 Respiratory 16 Rate Blood Pressure 112/60 [Left] O2 Sat by Pulse 100 100 Oximetry - Integumentary other (No change in toe exam.) - Labs 05/09/19 08:20 05/10/19 05:36 Diabetes panel 05/10/19 Range/Units 05:36 Sodium 138 (137-145) mmol/L Potassium 4.5 (3.6-5.0) mmol/L Chloride 95.9 L (98-107) mmol/L Carbon Dioxide 28 (22-30) mmol/L BUN 31 H (9-20) mg/dL Creatinine 7.1 H (0.8-1.5) mg/dL Glucose 132 H (75-100) mg/dL Calcium 9.9 (8.4-10.2) mg/dL Calcium panel 05/10/19 Range/Units 05:36 Calcium 9.9 (8.4-10.2) mg/dL Pituitary panel 05/10/19 Range/Units 05:36 Sodium 138 (137-145) mmol/L Potassium 4.5 (3.6-5.0) mmol/L Chloride 95.9 L (98-107) mmol/L Carbon Dioxide 28 (22-30) mmol/L BUN 31 H (9-20) mg/dL Creatinine 7.1 H (0.8-1.5) mg/dL Glucose 132 H (75-100) mg/dL Calcium 9.9 (8.4-10.2) mg/dL Adrenal panel 05/10/19 Range/Units 05:36 Sodium 138 (137-145) mmol/L Potassium 4.5 (3.6-5.0) mmol/L Chloride 95.9 L (98-107) mmol/L Carbon Dioxide 28 (22-30) mmol/L BUN 31 H (9-20) mg/dL Creatinine 7.1 H (0.8-1.5) mg/dL Glucose 132 H (75-100) mg/dL Calcium 9.9 (8.4-10.2) mg/dL
--- NOTE | 2019-05-10 14:13 | Progress Note ---
Assessment and Plan Cultures: 05/07/19 BCX - NGTD A/P: 58 yo M PMhx PAD, ESRD on HD TTS, dementia, DM2, remote L BKA admitted to the hospital from his long-term with R toe drainage and osteomyelitis. 1. Osteomyelitis of the R great toe - in the setting of gangrene. Patient is cur rently stable, as such would stop the levofloxacin in order to increase the yield of obtained cultures. General surgery has seen the patient, appreciate their recs. Depending on their course of action we can decide on antibiotics, but there is no need for them acutely. It will be difficult to heal the osteomyelitis medically if he has poor blood flow to the bone. High risk of limb loss. Vascular on board: arterial studies show intact flow into the foot but possible inflow disease. CTA ordered to evaluate for arterial insufficiency. Agree with surgical recommendation for transmetatarsal amputation right great toe and possible BKA/AKA in light of his non-ambulatory status and questionable distal perfusion. 2. Gangrene of R great toe 3. ESRD on HD 4. DM2 5. PAD 6. Dementia Recs: - Continue off antibiotics - when surgery is performed please send for aerobic/anaerobic cultures in addition to pathology -Full antibiotic course to be determined based on surgical outcome. - patient to be discharged . Outpatient amputation to be scheduled. Please have patient follow-up with ID clinic after amputation d/w Dr. Lalita Ludwig, [facility] M: [id number] O:[phone] Subjective Date of service: 05/10/19 Interval history: Patient seen and examined. Sitting up in bed. Reports dull pain in right foot. No fevers. Objective - Exam Narrative Exam: Constitutional: Alert, cooperative. Dull right foot pain Head, Ears, Nose: Normocephalic, atraumatic. External ears, nose normal Eyes: Conjunctivae/corneas clear. No icterus. No ptosis. Neck: Supple, no meningeal signs Oral: dentition fair, no thrush Cardiovascular: S1, S2 normal. Respiratory: Good air entry, clear to auscultation bilaterally GI: Soft, non-tender; bowel sounds normal. No peritoneal signs. Musculoskeletal: No pedal edema, no cyanosis. Dry, gangrenous toe. No acute ulcer. Skin: No rash or abscess Hem/Lymphatic: No palpable cervical or supraclavicular nodes. No lymphangitis Psych: Mood ok. Affect normal Neurological: Awake, alert, oriented. No gross abnormality - Constitutional Vitals: Vital Signs Temp Pulse Resp BP Pulse Ox 98.8 F 68 16 112/60 100 05/10/19 05:37 05/10/19 05:37 05/10/19 05:37 05/10/19 05:37 05/10/19 07:55 Temperature -Last 24 Hours Temperature 98.8 F Temperature 99.1 F Temperature 98.1 F Temperature 98.0 F - Labs CBC & Chem 7: 05/09/19 08:20 05/10/19 05:36 Labs: Abnormal lab results 05/09/19 05/09/19 05/10/19 Range/Units 17:10 21:12 05:36 Chloride 95.9 L (98-107) mmol/L BUN 31 H (9-20) mg/dL Creatinine 7.1 H (0.8-1.5) mg/dL Glucose 132 H (75-100) mg/dL POC Glucose 236 H 224 H (70-105)
[2019-05-10] MEDS: Renal Caps PO SCH (14:28)
[2019-05-10] MEDS: HALFPRIN EC PO SCH (14:28)
[2019-05-10] MEDS: VITAMIN C PO SCH ×2 (14:28→21:40)
[2019-05-10] MEDS: LOVENOX SUB-Q SCH (14:28)
[2019-05-10] MEDS: KEPPRA PO SCH ×2 (14:28→21:34)
[2019-05-10] MEDS: SENSIPAR PO SCH (14:28)
[2019-05-10] MEDS: VITAMIN B-1 PO SCH (14:29)
[2019-05-10] MEDS: FOLVITE PO SCH (14:29)
[2019-05-10] MEDS: NORVASC PO SCH (14:29)
[2019-05-10] MEDS: FEOSOL PO SCH ×2 (14:30→21:40)
[2019-05-10] MEDS: SODIUM CHLORIDE FLUSH SYRINGE 10 ML IV SCH (14:36)
--- NOTE | 2019-05-10 15:25 | Event Note ---
Date: 05/10/19 Patient has not have CTA LE yet as he is unable to give consent for the test, refusing iv stick and RN could not reach out to family to get consent yet. CM/RN discussed this am - will f/u with Dr wells and ID for possible outpt f/u.
--- NOTE | 2019-05-10 15:28 | Discharge Summary ---
Providers - Providers Date of Admission: 05/07/19 22:15 Date of discharge: 05/10/19 Attending physician: RAMYA SANTANA 05/07/19 21:34 Consult to Physician [CONS] Urgent Comment: Consulting Provider: [facility] Physician Instructions: Reason For Exam: gangrene, poor distal pulses 05/08/19 00:25 Consult to Physician [CONS] Routine Comment: Consulting Provider: FELIZ ELLISON Physician Instructions: Reason For Exam: HD 05/08/19 00:31 Consult to Wound/ET Nurse [CONS] Stat Reason For Exam: wound eval 05/08/19 06:48 Consult to Physician [CONS] Routine Comment: Consulting Provider: DEISY KERR Physician Instructions: Reason For Exam: osteo 05/08/19 12:08 Consult to Physician [CONS] Routine Comment: Consulting Provider: ROSA WILCOX Physician Instructions: Reason For Exam: right foot osteomylitis 05/09/19 12:23 Consult to Physician [CONS] Routine Comment: please eval for amputation Consulting Provider: JERALD JUAREZ Physician Instructions: Reason For Exam: gangrene/osteo of R great/2nd toe - eval for amp [facility] Condition: Stable Hospital course: Brief History: 58 yo M PMhx PAD, ESRD on HD TTS, dementia, DM2, remote L BKA admitted to the hospital from his long-term with R toe drainage. According to family members the long-term has been dressing the wounds for approximately the past 3 weeks. it is unclear if he received any antibiotics while at the long-term. In the ER extremities the right foot was highly suggestive for osteomyelitis, patient was admitted for further evaluation and management Radiological data: xry right foot: Small areas of lucency and cortical irregularity involving the proximal and distal phalanx of the great toe adjacent to the interphalangeal joint, highly suggestive for osteomyelitis. Please correlate clinically. Discharge Diagnosis and management: Osteomylitis with dry gangrene of right foot -Vascular was consulted to see the patient for possible vascular procedure is planned for CTA but patient refusing the test and RN could not reach out to the family. Consult ID and GS- planned for TMA versus left BKA pending vascular workup, ID wanted to monitor off abx till amputation is done. end-stage renal disease on dialysis - Nephrology for HD consulted hypertension, stable, monitor BP diabetes type 2, check fingersticks, initiate insulin sliding-scale GERD, PPI peripheral vascular disease s/p left BKA - cont asp, statin dementia , supportive care DVT prophylaxis, heparin Hospitalist Physical exam: General Apperance: The patient sitting in bed no acute distress HEENT: Normocephalic, atraumatic. Pupils equally round and reactive to light, extraocular movement intact, and no sclericterus or JVD or thyromegaly or nodule. Neck supple, no carotid bruit, mucous membranes moist, no exudate or erythema Heart: S1-S2, regular is rhythm Lungs: Clear to auscultation bilaterally, breathing comfortable Abdomen: Positive bowel sounds, soft, nontender, nondistended, no organomegaly Extremities: Wounds on the right great and second toe, no drainage, discolration foot,left BKA, No edema Skin: no rash, nodule, warm and dry Neuro: No focal deficit Disposition: DC/TX-03 SNF [facility] Time spent for discharge: 34 minutes Core Measure Documentation - Palliative Care Palliative Care/ Comfort Measures: Not Applicable - Core Measures Any of the following diagnoses?: none Exam - Constitutional Vitals: Temp Pulse Resp BP Pulse Ox 98.4 F 71 16 114/54 94 05/10/19 14:27 05/10/19 14:29 05/10/19 14:27 05/10/19 14:29 05/10/19 14:27 Plan Activity: up only with assistance Weight Bearing Status: Non-Weight Bearing Diet: diabetic, renal Wound: per wound nurse instructions Additional Instructions: f/u with Vascular surgeon and with Dr Juarez for outpt right foot amputation Follow up with: EVER INFANTE MD [Primary Care Provider] - 7 Days Prescriptions: oxyCODONE /ACETAMINOPHEN [Percocet 5/325 mg] 1 tab PO Q6H PRN #20 tablet PRN Reason: Pain, Moderate (4-6)
--- NOTE | 2019-05-10 16:02 | Progress Note ---
Assessment and Plan /Osteomylitis with dry gangrene of right foot -Vascular was consulted to see the patient for possible vascular procedure is planned for CTA - reschedule for tomorrow, sister voiced to be present during the test Consult ID and GS- planned for TMA versus left BKA pending vascular workup No abx now per ID Discussed with Ms Aguilera [phone] - patient's sister to update about the plan of care and she is not comfortable discharging patient to SNF w/o any definitive plan for vascular procedure or possible amputation, as patient lives in the SNF, family afraid that discharging him now will delay care and his foot might get infected which in short future could make him septic and critically sick if remains untreated. Family prefers to have at least the vascular procedure done with a possible definitive amputation date either inpt/out before discharge could take place. will reschedule the CTA of the right leg tomorrow before HD. Ms Aguilera voiced consent for the test and stated that she will be here in the hospital during the procedure. CM/RN updated. /End-stage renal disease on dialysis - Nephrology for HD consulted /hypertension, stable, monitor BP /diabetes type 2, check fingersticks, initiate insulin sliding-scale /GERD, PPI /peripheral vascular disease s/p left BKA - cont asp, statin /dementia , supportive care /DVT prophylaxis, heparin Brief History: 58 yo M PMhx PAD, ESRD on HD TTS, dementia, DM2, remote L BKA [facility] with [facility]. According to family members the prison has been dressing the wounds for approximately the past 3 weeks. it is unclear if he received any antibiotics while at the prison. In the ER extremities the right foot was highly suggestive for osteomyelitis, patient was admitted for further evaluation and management Radiological data: xry right foot: Small areas of lucency and cortical irregularity involving the proximal and distal phalanx of the great toe adjacent to the interphalangeal joint, highly suggestive for osteomyelitis. Please correlate clinically. Hospitalist Physical exam: General Apperance: The patient sitting in bed no acute distress HEENT: Normocephalic, atraumatic. Pupils equally round and reactive to light, extraocular movement intact, and no sclericterus or JVD or thyromegaly or nodule. Neck supple, no carotid bruit, mucous membranes moist, no exudate or erythema Heart: S1-S2, regular is rhythm Lungs: Clear to auscultation bilaterally, breathing comfortable Abdomen: Positive bowel sounds, soft, nontender, nondistended, no organomegaly Extremities: Wounds on the right great and second toe, no drainage, discolration foot,left BKA, No edema Skin: no rash, nodule, warm and dry Neuro: No focal deficit Subjective Date of service: 05/10/19 Interval history: Patient seen and examined. Medical records and medication list reviewed. No acute event overnight noted by the RN. Refusing Iv sticks, accue check Discussed plan of care at with patient's sister. Objective - Constitutional Vitals: Vital Signs - 12hr 05/10/19 05/10/19 05/10/19 04:50 05:37 07:55 Temperature 98.8 F Pulse Rate 68 Respiratory 16 16 Rate Blood Pressure 112/60 Blood Pressure 112/60 [Left] O2 Sat by Pulse 100 100 Oximetry 05/10/19 05/10/19 05/10/19 14:25 14:27 14:29 Temperature 98.4 F 98.4 F Pulse Rate 70 71 71 Respiratory 16 16 Rate Blood Pressure 114/54 114/54 Blood Pressure 114/54 [Left] O2 Sat by Pulse 97 94 Oximetry - Labs CBC & Chem 7: 05/09/19 08:20 05/10/19 05:36 Labs: Abnormal lab results 05/09/19 05/09/19 05/10/19 Range/Units 17:10 21:12 05:36 Chloride 95.9 L (98-107) mmol/L BUN 31 H (9-20) mg/dL Creatinine 7.1 H (0.8-1.5) mg/dL Glucose 132 H (75-100) mg/dL POC Glucose 236 H 224 H (70-105)
--- NOTE | 2019-05-10 17:41 | Event Note ---
Date: 05/10/19 Spoke with the vascular surgeon and discussed with Dr. Juarez and ID Plan for CTA of the right lower extremity tomorrow, if CTA does not show any abnormal findings than patient will be planned for outpatient amputation by Dr. Juarez. If CTA results points to major vascular disease or patient unable to get CTA then patient will be scheduled for outpatient angiogram under anesthesia followed by outpatient plan for amputation. By vascular surgeon CTA of the right lower extremity is necessary to avoid any unnecessary outpatient invasive procedure.
[2019-05-10] MEDS: ARICEPT PO SCH (21:40)
[2019-05-10] MEDS: COZAAR PO SCH (21:41)
[2019-05-10] MEDS: LANTUS SUB-Q SCH (21:43)
[2019-05-11 08:22] LABS: Basophils % (Auto) 0.6 % (0.0-1.8); Eosinophils # (Auto) 0.3 K/mm3 (0.0-0.4); Eosinophils % (Auto) 4.3 % (0.0-4.3); Hematocrit 33.3 % (35.5-45.6); Hemoglobin 10.3 gm/dl (11.8-15.2); Lymphocytes # (Auto) 1.7 K/mm3 (1.2-5.4); Lymphocytes % (Auto) 24.9 % (13.4-35.0); Mean Corpuscular HGB Conc 31 % (32-34); Mean Corpuscular Volume 84 fl (84-94); Monocytes # (Auto) 0.5 K/mm3 (0.0-0.8); Monocytes % (Auto) 7.1 % (0.0-7.3); Platelet Count 293 K/mm3 (140-440); Red Blood Count 3.98 M/mm3 (3.65-5.03); Red Cell Distribution Width 16.7 % (13.2-15.2)
--- NOTE | 2019-05-11 08:22 | Progress Note ---
Assessment and Plan 1. ESRD: Patient is on maintenance hemodialysis three times a week, TTS schedule. 2. FEN: Hyperkalemia, s/p HD. Monitor. 3. Anemia: Epogen with HD. 4. R foot / toe gangrene: Followed by ID and Surgery. 5. Hyperparathyroidism: Cinacalcet. 6. DM type 2. Subjective Date of service: 05/11/19 Interval history: Patient was seen and examined at the bedside. Objective - Vital Signs Vital signs: Vital Signs - 12hr 05/10/19 05/10/19 05/10/19 21:26 21:41 21:47 Temperature 98.6 F Pulse Rate 76 78 78 Respiratory 16 Rate Blood Pressure 142/69 142/69 142/69 O2 Sat by Pulse 99 Oximetry 05/10/19 05/11/19 22:00 05:06 Temperature 97.8 F Pulse Rate 74 Respiratory 16 Rate Blood Pressure 136/74 O2 Sat by Pulse 99 99 Oximetry - General Appearance General appearance: well-developed, appears stated age, other (no distress) EENT: ATNC, PERRL Neck: supple Respiratory: Present: Clear to Ascultation Cardiology: regular, S1S2, no murmurs Gastrointestinal: normoactive bowel sounds, no tenderness Integumentary: other (gangrene R toes) Neurologic: confused, disoriented Musculoskeletal: other (L BKA, R arm AVF) - Lab 05/11/19 07:36 05/11/19 07:36 Most recent lab results Calcium 9.9 mg/dL (8.4-10.2) 05/10/19 05:36 Medications & Allergies - Medications Allergies/Adverse Reactions: Allergies Penicillins Allergy (Verified 11/10/18 09:47) Unknown Home Medications: Home Medications Medication Instructions Recorded Confirmed Last Taken Type Ascorbic Acid [Vitamin C] 500 mg PO BID 12/27/16 05/08/19 Unknown History AtorvaSTATin [Lipitor] 40 mg PO QHS 12/27/16 05/08/19 Unknown History Ferrous Sulfate [Feosol 325 MG tab] 325 mg PO BID 12/27/16 05/08/19 Unknown History Folic Acid [Folvite] 1 mg PO QDAY 12/27/16 05/08/19 Unknown History Ondansetron [Zofran TAB] 4 mg PO Q4H PRN 12/27/16 05/08/19 Unknown History Thiamine [Vitamin B-1] 100 mg PO QDAY 12/27/16 05/08/19 Unknown History Vit B Comp No.3/Folic/C/Biotin 1 each PO DAILY 12/27/16 05/08/19 Unknown History [Cheryl-Pricilla Rx Tablet] diphenhydrAMINE [Benadryl CAP] 25 mg PO Q6HR PRN 12/27/16 05/08/19 Unknown History Insulin Lispro [HumaLOG VIAL] 20 unit SQ BID 02/14/17 05/08/19 Unknown History Insulin Lispro [Humalog 100 See Protocol SQ AC 02/14/17 05/08/19 Unknown History UNITS/ML Kwikpen] Cinacalcet [Sensipar] 30 mg PO QDAY 11/10/18 05/08/19 Unknown History Donepezil HCl 10 mg PO QHS 11/10/18 05/08/19 Unknown History Insulin Glargine,Hum.rec.anlog 44 units SQ QHS 11/10/18 05/08/19 Unknown History [Lantus] Losartan Potassium 100 mg PO QHS 11/10/18 05/08/19 Unknown History Metoprolol Tartrate 75 mg PO BID 11/10/18 05/08/19 Unknown History Sevelamer Carbonate 2,400 mg PO TIDWM 11/10/18 05/08/19 Unknown History cloNIDine-TTS PATCH [Catapres-Tts 1 patch TD Q7D 11/10/18 05/08/19 Unknown Histo ry 0.1MG Patch] raNITIdine HCl [Zantac] 150 mg PO QHS 11/10/18 05/08/19 Unknown History levETIRAcetam [Keppra TAB] 250 mg PO BID tablet 11/12/18 05/08/19 Unknown Rx amLODIPine [Norvasc] 10 mg PO DAILY 05/08/19 05/08/19 Unknown History Aspirin EC [Halfprin EC] 81 mg PO QDAY tablet 05/10/19 Unknown Rx oxyCODONE /ACETAMINOPHEN [Percocet 1 tab PO Q6H PRN #20 tablet 05/10/19 Unknown Rx 5/325 mg] Active Medications: Generic Name Dose Route Start Last Admin Trade Name Freq PRN Reason Stop Dose Admin Acetaminophen 650 mg 05/08/19 00:22 Tylenol PO Q4H PRN Pain MILD(1-3)/Fever >100.5/DINERO Amlodipine Besylate 10 mg 05/09/19 10:00 05/10/19 14:29 Norvasc PO 10 mg DAILY LUZ Administration Ascorbic Acid 500 mg 05/08/19 22:00 05/10/19 21:40 Vitamin C PO 500 mg BID LUZ Administration Aspirin 81 mg 05/09/19 10:00 05/10/19 14:28 Halfprin Ec PO 81 mg QDAY [facility] Administration Atorvastatin Calcium 40 mg 05/08/19 22:00 05/10/19 21:32 Lipitor PO 40 mg QHS [facility] [place] Administration Cinacalcet 30 mg 05/09/19 10:00 05/10/19 14:28 Sensipar PO 30 mg QDAY [facility] [place] Administration Clonidine HCl 0.1 mg 05/12/19 10:00 Catapres-Tts Patch TD Fr [facility] Dextrose 50 ml 05/08/19 06:49 D50w (25gm) Syringe IV PRN PRN Hypoglycemia Diphenhydramine HCl 25 mg 05/08/19 16:25 05/08/19 22:31 Benadryl PO 25 mg Q6HR PRN Administration Itching Donepezil HCl 10 mg 05/08/19 22:00 05/10/19 21:40 Aricept PO 10 mg QHS [facility] [place] Administration Enoxaparin Sodium 30 mg 05/08/19 10:00 05/10/19 14:28 Lovenox SUB-Q 30 mg QDAY [facility] [place] Administration Epoetin Darvin 10,000 unit 05/09/19 06:51 05/09/19 13:45 Procrit SUB-Q 10,000 unit CORBY PRN Administration hemodialysis Ferrous Sulfate 325 mg 05/08/19 22:00 05/10/19 21:40 Feosol PO 325 mg BID [facility] [place] Administration Folic Acid 1 mg 05/09/19 10:00 05/10/19 14:29 Folvite PO 1 mg QDAY [facility] [place] Administration Heparin Sodium (Porcine) 2,000 unit 05/09/19 06:51 05/09/19 10:50 Heparin IV 2,000 unit CORBY PRN Administration hemodialysis Sodium Chloride 100 mls @ 999 mls/hr 05/09/19 10:08 Nacl 0.9% IV CORBY PRN Hypotension Insulin Glargine 44 units 05/08/19 22:00 05/10/19 21:43 Lantus SUB-Q 44 units QHS LUZ Administration Insulin Human Lispro 0 unit 05/08/19 07:30 05/10/19 21:42 Humalog SUB-Q Not Given ACHS [facility] Protocol Insulin Human Lispro 5 unit 05/08/19 17:00 05/10/19 18:43 Humalog SUB-Q 5 unit AC [facility]Z Administration Levetiracetam 250 mg 05/08/19 22:00 05/10/19 21:34 Keppra PO 250 mg BID LUZ Administration Losartan Potassium 100 mg 05/08/19 22:00 05/10/19 21:41 Cozaar PO 100 mg HS [facility]Z Administration Metoprolol Tartrate 75 mg 05/08/19 22:00 05/10/19 21:47 Lopressor PO 75 mg BID LUZ Administration Multivit/Ca Carb/B Cmplx/FA/Prenat 1 cap 05/09/19 10:00 05/10/19 14:28 Renal Caps PO 1 cap QDAY [facility]Z Administration Nicotine 14 mg 05/11/19 10:00 Habitrol TD QDAY [facility] Ondansetron HCl 4 mg 05/08/19 00:22 Zofran IV Q8H PRN Nausea And Vomiting Ondansetron HCl 4 mg 05/08/19 16:38 Zofran Odt PO Q4H PRN Nausea And Vomiting Oxycodone/Acetaminophen 1 tab 05/08/19 00:22 05/10/19 18:43 Percocet 5/325 PO 1 tab Q6H PRN Administration Pain, Moderate (4-6) Sevelamer Carbonate 2,400 mg 05/08/19 17:00 05/10/19 18:46 Renvela PO Not Given TIDWM [facility] Sodium Chloride 10 ml 05/08/19 10:00 05/10/19 14:36 Sodium Chloride Flush Syringe 10 Ml IV 10 ml BID LUZ Administration Sodium Chloride 10 ml 05/08/19 00:22 Sodium Chloride Flush Syringe 10 Ml IV PRN PRN LINE FLUSH Sodium Polystyrene Sulfonate 15 gm 05/08/19 22:24 Kionex PO Q6H PRN Hyperkalemia Thiamine HCl 100 mg 05/09/19 10:00 05/10/19 14:29 Vitamin B-1 PO 100 mg QDAY [facility] Administration
[2019-05-11 08:33] LABS: Calcium 9.8 mg/dL (8.4-10.2)
[2019-05-11] MEDS ORDERED: HALDOL IM PRN (09:24)
--- NOTE | 2019-05-11 09:26 | Event Note ---
Date: 05/11/19 Vascular still awaiting CTA results for further recommendations.
[2019-05-11] MEDS: HumaLOG SUB-Q SCH ×6 (09:39→19:56)
[2019-05-11] MEDS ORDERED: HABITROL TD SCH (10:00)
[2019-05-11] MEDS: FEOSOL PO SCH (12:40)
[2019-05-11] MEDS: HALFPRIN EC PO SCH (12:40)
[2019-05-11] MEDS: Renal Caps PO SCH (12:40)
[2019-05-11] MEDS: KEPPRA PO SCH (12:41)
[2019-05-11] MEDS: FOLVITE PO SCH (12:41)
[2019-05-11] MEDS: SENSIPAR PO SCH (12:41)
[2019-05-11] MEDS: LOVENOX SUB-Q SCH (12:41)
[2019-05-11] MEDS: VITAMIN C PO SCH (12:41)
[2019-05-11] MEDS: RENVELA PO SCH ×3 (12:43→19:57)
[2019-05-11] MEDS: SODIUM CHLORIDE FLUSH SYRINGE 10 ML IV SCH (12:44)
--- NOTE | 2019-05-11 13:09 | Progress Note ---
Assessment and Plan - Patient Problems (1) Foot ulcer, right Current Visit: Yes Status: Acute Plan to address problem: 1) Awaiting results of CT angiogram 2) Continue local wound care Subjective Date of service: 05/11/19 Patient Reports: Positive: no new complaints Objective Vital Signs - 12hr 05/11/19 05/11/19 05:06 09:29 Temperature 97.8 F Pulse Rate 74 Respiratory 16 Rate Blood Pressure 136/74 O2 Sat by Pulse 99 100 Oximetry - Labs 05/11/19 07:36 05/11/19 07:36 Diabetes panel 05/11/19 Range/Units 07:36 Sodium 141 (137-145) mmol/L Potassium 4.6 (3.6-5.0) mmol/L Chloride 98.0 (98-107) mmol/L Carbon Dioxide 28 (22-30) mmol/L BUN 39 H (9-20) mg/dL Creatinine 9.1 H (0.8-1.5) mg/dL Glucose 89 (75-100) mg/dL Calcium 9.8 (8.4-10.2) mg/dL Calcium panel 05/11/19 Range/Units 07:36 Calcium 9.8 (8.4-10.2) mg/dL Pituitary panel 05/11/19 Range/Units 07:36 Sodium 141 (137-145) mmol/L Potassium 4.6 (3.6-5.0) mmol/L Chloride 98.0 (98-107) mmol/L Carbon Dioxide 28 (22-30) mmol/L BUN 39 H (9-20) mg/dL Creatinine 9.1 H (0.8-1.5) mg/dL Glucose 89 (75-100) mg/dL Calcium 9.8 (8.4-10.2) mg/dL Adrenal panel 05/11/19 Range/Units 07:36 Sodium 141 (137-145) mmol/L Potassium 4.6 (3.6-5.0) mmol/L Chloride 98.0 (98-107) mmol/L Carbon Dioxide 28 (22-30) mmol/L BUN 39 H (9-20) mg/dL Creatinine 9.1 H (0.8-1.5) mg/dL Glucose 89 (75-100) mg/dL Calcium 9.8 (8.4-10.2) mg/dL
[2019-05-11] MEDS: LOPRESSOR PO SCH (13:20)
[2019-05-11] MEDS: NORVASC PO SCH (13:20)
[2019-05-11] MEDS: VITAMIN B-1 PO SCH (13:21)
--- NOTE | 2019-05-11 14:42 | Discharge Summary ---
Providers - Providers Date of Admission: 05/07/19 22:15 Date of discharge: 05/11/19 Attending physician: RAMYA SANTANA 05/07/19 21:34 Consult to Physician [CONS] Urgent Comment: Consulting Provider: [facility] Physician Instructions: Reason For Exam: gangrene, poor distal pulses 05/08/19 00:25 Consult to Physician [CONS] Routine Comment: Consulting Provider: FELIZ ELLISON Physician Instructions: Reason For Exam: HD 05/08/19 00:31 Consult to Wound/ET Nurse [CONS] Stat Reason For Exam: wound eval 05/08/19 06:48 Consult to Physician [CONS] Routine Comment: Consulting Provider: DEISY KERR Physician Instructions: Reason For Exam: osteo 05/08/19 12:08 Consult to Physician [CONS] Routine Comment: Consulting Provider: ROSA WILCOX Physician Instructions: Reason For Exam: right foot osteomylitis 05/09/19 12:23 Consult to Physician [CONS] Routine Comment: please eval for amputation Consulting Provider: JERALD JUAREZ Physician Instructions: Reason For Exam: gangrene/osteo of R great/2nd toe - eval for amp [facility] Condition[facility] St[facility] Hospital course: 58 yo M PMhx PAD, ESRD on HD TTS, dementia, DM2, remote L BKA admitted [facility] from his [facility] with R toe drainage. According to family members the [facility] has been dressing the wounds for approximately the past 3 weeks. it is unclear if he received any antibiotics while at the [facility]. In the ER extremities the right foot was highly suggestive for osteomyelitis, patient was admitted for further evaluation and management. ID recommended no need for abx, vascular recommended CTA abdomen/femoral which showed . Patient was recommended to f/u outpt for possible amputation procedure. Patient's sister updated with the plan and she agreed. Patient was then discharged back to the SNF in stable condition with outpt f/u. Radiological data: xry right foot: Small areas of lucency and cortical irregularity involving the proximal and distal phalanx of the great toe adjacent to the interphalangeal joint, highly suggestive for osteomyelitis. Please correlate clinically. Right LE arterial doppler: 1. Scattered plaque is noted right lower extremity vessels. There is monophasic waveform throughout the right lower extremity no discrete hemodynamically significant stenosis is identified in the right leg. The monophasic flow throughout the right lower extremity suggest aortoiliac disease in addition to the scattered disease noted in the right lower extremity. CTA abdo/femoral abd aorta: 1. Severe extensive atherosclerosis along the pelvis and lower extremities with intermittent occlusions of all 3 vessels of the lower right leg with multiple patent collaterals. 2. Previously placed right SFA stents are patent. 3. Prior left below the knee amputation with severe stenoses/near total occl usions of the left superficial femoral and popliteal arteries. 4. Additional findings as above. Discharge diagnosis and management: /Osteomylitis with dry gangrene of right foot -Vascular was consulted to see the patient for possible vascular procedure , recommended CTA - CTA showed no evidence of aorto-iliac disease as suggested by arterial duplex. Per vascular patient with intact perfusion to the foot and no invasive angiogram needed at this time. No abx now per ID as no sign od infection. Patient will f/u wound care clinic on 05/17/[address] Juarez - patient can follow-up as an outpatient if amputation shows any evidence of poor wound healing. /End-stage renal disease on dialysis - Nephrology for HD consulted /hypertension, stable, monitor BP /diabetes type 2, check fingersticks, initiate insulin sliding-scale /GERD, PPI /peripheral vascular disease s/p left BKA - cont asp, statin /dementia , supportive care /DVT prophylaxis, heparin Hospitalist Physical exam: General Apperance: The patient sitting in bed no acute distress HEENT: Normocephalic, atraumatic. Pupils equally round and reactive to light, extraocular movement intact, and no sclericterus or JVD or thyromegaly or nodule. Neck supple, no carotid bruit, mucous membranes moist, no exudate or erythema Heart: S1-S2, regular is rhythm Lungs: Clear to auscultation bilaterally, breathing comfortable Abdomen: Positive bowel sounds, soft, nontender, nondistended, no organomegaly Extremities: Wounds on the right great and second toe, no drainage, discolration foot, left BKA, No edema Skin: no rash, nodule, warm and dry Neuro: No focal deficit [facility] Time spent for discharge: 34 minutes Core Measure Documentation - Palliative Care Palliative Care/ Comfort Measures: Not Applicable - Core Measures Any of the following diagnoses?: none Exam - Constitutional Vitals: Temp Pulse Resp BP Pulse Ox 98.7 F 71 19 127/69 94 05/11/19 12:47 05/11/19 12:47 05/11/19 12:47 05/11/19 12:47 05/11/19 12:47 Plan Activity: fall precautions Weight Bearing Status: Non-Weight Bearing (. He is) Diet: renal [facility] JOSE MANUEL [Primary Care Provider] - 7 Days TRAM BURGER MD [Staff Physician] - 6 Weeks JERALD JUAREZ MD [Staff Physician] - 7 Days Prescriptions: oxyCODONE /ACETAMINOPHEN [Percocet 5/325 mg] 1 tab PO Q6H PRN #20 tablet PRN Reason: Pain, Moderate (4-6)
--- NOTE | 2019-05-11 15:45 | Event Note ---
Date: 05/11/19 CTA reviewed. no evidence of aorto-iliac disease as suggested by arterial duplex. after review of patient's non-invasive work-up, patient with intact perfusion to the foot. will hold off on invasive angiogram at this time. patient can follow-up as an outpatient if amputation shows any evidence of poor wound healing.
--- NOTE | 2019-05-11 15:49 | Cat Scan Report ---
CTA ABDOMEN, PELVIS, AND LOWER EXTREMITIES INDICATION: Right foot gangrene. TECHNIQUE: Axial CT images were obtained through the abdomen, pelvis and lower extremities after injection of 10 0 cc Omnipaque 350 IV contrast. 3 plane MIP reconstructions were produced. All CT scans at this [facility] are performed using CT dose reduction for ALARA by means of automated exposure control. COMPARISON: Right lower extremity arterial Doppler from 05/08/2019. FINDINGS: CTA ABDOMEN: Abdominal Aorta: Patent and normal in caliber with mild generalized atherosclerosis. No dissection. Celiac Artery: Patent and normal in caliber with moderate generalized atherosclerosis. Superior Mesenteric Artery: Patent and normal in caliber with diffuse atherosclerosis. Right Renal Artery: Patent and normal in caliber with moderate atherosclerosis. Left Renal Artery: Patent and normal in caliber with moderate atherosclerosis. The left renal vein is preaortic in course. Inferior Mesenteric Artery: Patent with diffuse nonobstructive atherosclerosis. CTA PELVIS: RIGHT: - Common Iliac Artery: Patent and normal in caliber with mild nonobstructive atherosclerosis. - Internal Iliac Artery: Patent with severe diffuse atherosclerosis without a distinct occlusion. - External Iliac Artery: Patent with mild nonobstructive atherosclerosis. LEFT: - Common Iliac Artery: No significant abnormality. - Internal Iliac Artery: Patent with severe diffuse atherosclerosis. No distinct occlusion. - External Iliac Artery: No significant abnormality. CTA LOWER EXTREMITIES: RIGHT LOWER EXTREMITY: - Common Femoral Artery: Patent with mild to moderate nonobstructive atherosclerosis. - Superficial Femoral Artery: Patent with diffuse nonobstructive atherosclerosis. Previously placed s tents appear patent. - Profunda Femoral Artery: Patent proximally with severe generalized atherosclerosis. Distal branch o cclusions are suspected. - Popliteal Artery: Patent with diffuse atherosclerosis and 50-60% stenoses by diameter. - Anterior Tibial Artery: Patent at the origin with subsequent intermittent occlusions throughout its course and diffuse atherosclerosis. - Tibioperoneal Trunk: Patent with diffuse atherosclerosis. - Posterior Tibial Artery: Patent with diffuse atherosclerosis and multiple intermittent occlusions. - Peroneal Artery: Patent with diffuse atherosclerosis and multiple intermittent occlusions. - Ankle runoff: Three vessel. Multiple collaterals are present throughout the right leg. LEFT LOWER EXTREMITY: - Common Femoral Artery: Patent with mild to moderate nonobstructive atherosclerosis. - Superficial Femoral Artery: Patent with severe generalized atherosclerosis. There are multiple shor t segment near total occlusions along the distal third of the vessel. - Profunda Femoral Artery: Patent proximally with diffuse atherosclerosis and suspected distal branch occlusions. - Popliteal Artery: Patent with diffuse atherosclerosis and a severe stenosis just above the origin o f the anterior tibial artery. - Anterior Tibial Artery: Patent at its origin with subsequent occlusion secondary to amputation. - Tibioperoneal Trunk: Absent due to amputation. - Posterior Tibial Artery: Absent due to amputation. - Peroneal Artery: Absent due to amputation. NONTARGET STRUCTURES: ABDOMEN:Numerous cysts are seen throughout the kidneys without suspicious renal lesions. No additiona l significant abnormality of the abdominal structures. PELVIS:Thickening of the bladder wall is likely due to underdistention. No additional significant abn ormality. LOWER EXTREMITIES:There is swelling along the right foot, most notable along the great toe with a pro bable wound located medially along the great toe. SKELETAL: Osteopenia is noted with degenerative changes of the spine. Nonspecific sclerotic lesions a re seen along the iliac bones measuring up to 1.8 cm on the left on image 248 of series 2. No acute a bnormality. ADDITIONAL FINDINGS: None. IMPRESSION: 1. Severe extensive atherosclerosis along the pelvis and lower extremities with intermittent occlusio ns of all 3 vessels of the lower right leg with multiple patent collaterals. 2. Previously placed right SFA stents are patent. 3. Prior left below the knee amputation with severe stenoses/near total occlusions of the left superf icial femoral and popliteal arteries. 4. Additional findings as above. Signer Name: Urbano Davis MD Signed: 05/11/2019 3:45 PM Workstation Name: [id number]
[2019-05-11 19:57] VITALS: BP 115/66
[2019-05-12] MEDS ORDERED: CATAPRES-TTS PATCH TD SCH (10:00)
== END 2019-05-11 21:50 | DRG 638 ==
LOC: ED 17:12 → 3A 22:15
PROVIDERS: ADMIT Internal Medicine; ATTEND Internal Medicine
PROC: 5A1D70Z Performance of Urinary Filtration, Intermittent, Less than 6 Hours Per Day (ICD-10-PCS; principal; 2019-05-09)
PROC: 5A1D70Z Performance of Urinary Filtration, Intermittent, Less than 6 Hours Per Day (ICD-10-PCS; 2019-05-11)
DX: E11.69 Type 2 diabetes mellitus with other specified complication (principal); E11.52 Type 2 diabetes mellitus with diabetic peripheral angiopathy with gangrene; M86.171 Other acute osteomyelitis, right ankle and foot; I12.0 Hypertensive chronic kidney disease with stage 5 chronic kidney disease or end stage renal disease; L03.116 Cellulitis of left lower limb; N18.6 End stage renal disease; E11.621 Type 2 diabetes mellitus with foot ulcer; E11.22 Type 2 diabetes mellitus with diabetic chronic kidney disease; F03.90 Unspecified dementia, unspecified severity, without behavioral disturbance, psychotic disturbance, mood disturbance, and anxiety; K21.9 Gastro-esophageal reflux disease without esophagitis; L97.519 Non-pressure chronic ulcer of other part of right foot with unspecified severity; E87.5 Hyperkalemia; D64.9 Anemia, unspecified; F17.200 Nicotine dependence, unspecified, uncomplicated; E21.3 Hyperparathyroidism, unspecified; Z82.49 Family history of ischemic heart disease and other diseases of the circulatory system; Z83.3 Family history of diabetes mellitus; Z99.2 Dependence on renal dialysis; Z89.512 Acquired absence of left leg below knee; Z88.0 Allergy status to penicillin; Z79.899 Other long term (current) drug therapy; Z87.442 Personal history of urinary calculi; Z99.3 Dependence on wheelchair
CPT/HCPCS: 36415; 75635; 80048; 80053; 80074; 82140; 82805; 82962; 85007; 85025; 87040; 96365; G0378; A9270-GY; J0885; J1630; J1650; J1815; J1956; J3370; J7030; Q9967

== ENCOUNTER 2019-05-25 08:25 | Emergency (ER) | payer MEDICAID ==
--- NOTE | 2019-05-25 09:55 | Emergency Department Report ---
ED GI Bleed HPI - General Stated complaint: POSS GI BLEED/VOMITING Time Seen by Provider: 05/25/19 09:50 Source: patient, EMS Mode of arrival: Stretcher Limitations: Physical Limitation - History of Present Illness Initial comments: Patient is a 58-year-old male since emergency room with complaints of nausea vomiting and blood in his vomitus. Patient states she's got bright red and coffee-ground emesis. Patient states all the symptoms started at 8 PM last night. Patient denies abdominal pain. Patient denies fever and chills. Patient denies diarrhea. Patient denies dark stools. Patient denies pain with vomiting. Patient denies pain with defecation. MD complaint: coffee ground emesis, gross hematemesis -: Sudden Radiation: none Quality: painless Consistency: intermittent Improves with: rest Worsens with: eating Associated Symptoms: nausea, vomiting, malaise. denies: abdominal pain, epistaxis, fever/chills, headaches, loss of appetite, easy bruising, rash, other bleeding, shortness of breath, syncope, weakness - Related Data Home Medications Medication Instructions Recorded Confirmed Last Taken Ascorbic Acid [Vitamin C] 500 mg PO BID 12/27/16 05/25/19 05/25/19 AtorvaSTATin [Lipitor] 40 mg PO QHS 12/27/16 05/25/19 05/25/19 Ferrous Sulfate [Feosol 325 MG tab] 325 mg PO BID 12/27/16 05/25/19 05/24/19 Folic Acid [Folvite] 1 mg PO QDAY 12/27/16 05/25/19 05/25/19 Ondansetron [Zofran TAB] 4 mg PO Q4H PRN 12/27/16 05/25/19 05/25/19 Thiamine [Vitamin B-1] 100 mg PO QDAY 12/27/16 05/25/19 05/25/19 Vit B Comp No.3/Folic/C/Biotin 1 each PO DAILY 12/27/16 05/25/19 05/25/19 [Cheryl-Pricilla Rx Tablet] diphenhydrAMINE [Benadryl CAP] 25 mg PO Q6HR PRN 12/27/16 05/25/19 05/24/19 Insulin Lispro [HumaLOG VIAL] 20 unit SQ BID 02/14/17 05/25/19 05/25/19 Insulin Lispro [Humalog 100 See Protocol SQ AC 02/14/17 05/25/19 05/22/19 UNITS/ML Kwikpen] Cinacalcet [Sensipar] 30 mg PO QDAY 11/10/18 05/25/19 05/25/19 Donepezil HCl 10 mg PO QHS 11/10/18 05/25/19 05/25/19 Insulin Glargine,Hum.rec.anlog 44 units SQ QHS 11/10/18 05/25/19 05/24/19 [Lantus] Losartan Potassium 100 mg PO QHS 11/10/18 05/25/19 05/25/19 Metoprolol Tartrate 75 mg PO BID 11/10/18 05/25/19 05/25/19 Sevelamer Carbonate 2,400 mg PO TIDWM 11/10/18 05/25/19 05/25/19 cloNIDine-TTS PATCH [Catapres-Tts 1 patch TD Q7D 11/10/18 05/25/19 05/19/19 0.1MG Patch] raNITIdine HCl [Zantac] 150 mg PO QHS 11/10/18 05/25/19 05/24/19 amLODIPine [Norvasc] 10 mg PO DAILY 05/08/19 05/25/19 05/25/19 Previous Rx's Medication Instructions Recorded Last Taken Type levETIRAcetam [Keppra TAB] 250 mg PO BID tablet 11/12/18 05/25/19 Rx Aspirin EC [Halfprin EC] 81 mg PO QDAY tablet 05/10/19 05/25/19 Rx oxyCODONE /ACETAMINOPHEN [Percocet 1 tab PO Q6H PRN #20 tablet 05/10/19 05/24/19 Rx 5/325 mg] Esomeprazole Magnesium [NexIUM] 40 mg PO BID 30 Days #15 suspdr.pkt 05/25/19 Unknown Rx Allergies Allergy/AdvReac Type Severity Reaction Status Date / Time Penicillins Allergy Unknown Verified 11/10/18 09:47 ED Review of Systems ROS: Stated complaint: POSS GI BLEED/VOMITING Other details as noted in HPI Constitutional: malaise. denies: chills, fever Eyes: denies: eye pain, eye discharge, vision change ENT: denies: ear pain, throat pain Respiratory: denies: cough, shortness of breath, wheezing Cardiovascular: denies: chest pain, palpitations Endocrine: no symptoms reported Gastrointestinal: nausea, vomiting, hematemesis. denies: abdominal pain, diarrhea Genitourinary: denies: urgency, dysuria Musculoskeletal: denies: back pain, joint swelling, arthralgia Skin: denies: rash, lesions Neurological: denies: headache, weakness, paresthesias Psychiatric: denies: anxiety, depression Hematological/Lymphatic: denies: easy bleeding, easy bruising ED Past Medical Hx - Past Medical History Previous Medical History?: Yes Hx Hypertension: Yes Hx CVA: No Hx Heart Attack/AMI: No Hx Congestive Heart Failure: No Hx Diabetes: Yes Hx Deep Vein Thrombosis: No Hx GERD: Yes Hx Liver Disease: No Hx Renal Disease: Yes Hx Headaches / Migraines: No Hx Seizures: Yes (on meds) Hx Kidney Stones: Yes Hx Asthma: Yes Hx COPD: No Hx Dementia: Yes Hx HIV: No Additional medical history: Anemia - Surgical History Past Surgical History?: Yes Additional Surgical History: Left BKA, 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] - Family History Family history: no significant - Social History Smoking Status: Former Smoker Substance Use Type: None - Medications Home Medications: Home Medications Medication Instructions Recorded Confirmed Last Taken Type Ascorbic Acid [Vitamin C] 500 mg PO BID 12/27/16 05/25/19 05/25/19 History AtorvaSTATin [Lipitor] 40 mg PO QHS 12/27/16 05/25/19 05/25/19 History Ferrous Sulfate [Feosol 325 MG tab] 325 mg PO BID 12/27/16 05/25/19 05/24/19 History Folic Acid [Folvite] 1 mg PO QDAY 12/27/16 05/25/19 05/25/19 History Ondansetron [Zofran TAB] 4 mg PO Q4H PRN 12/27/16 05/25/19 05/25/19 History Thiamine [Vitamin B-1] 100 mg PO QDAY 12/27/16 05/25/19 05/25/19 History Vit B Comp No.3/Folic/C/Biotin 1 each PO DAILY 12/27/16 05/25/19 05/25/19 History [Cheryl-Pricilla Rx Tablet] diphenhydrAMINE [Benadryl CAP] 25 mg PO Q6HR PRN 12/27/16 05/25/19 05/24/19 History Insulin Lispro [HumaLOG VIAL] 20 unit SQ BID 02/14/17 05/25/19 05/25/19 History Insulin Lispro [Humalog 100 See Protocol SQ AC 02/14/17 05/25/19 05/22/19 History UNITS/ML Kwikpen] Cinacalcet [Sensipar] 30 mg PO QDAY 11/10/18 05/25/19 05/25/19 History Donepezil HCl 10 mg PO QHS 11/10/18 05/25/19 05/25/19 History Insulin Glargine,Hum.rec.anlog 44 units SQ QHS 11/10/18 05/25/19 05/24/19 History [Lantus] Losartan Potassium 100 mg PO QHS 11/10/18 05/25/19 05/25/19 History Metoprolol Tartrate 75 mg PO BID 11/10/18 05/25/19 05/25/19 History Sevelamer Carbonate 2,400 mg PO TIDWM 11/10/18 05/25/19 05/25/19 History cloNIDine-TTS PATCH [Catapres-Tts 1 patch TD Q7D 11/10/18 05/25/19 05/19/19 History 0.1MG Patch] raNITIdine HCl [Zantac] 150 mg PO QHS 11/10/18 05/25/19 05/24/19 History levETIRAcetam [Keppra TAB] 250 mg PO BID tablet 11/12/18 05/25/19 05/25/19 Rx amLODIPine [Norvasc] 10 mg PO DAILY 05/08/19 05/25/19 05/25/19 History Aspirin EC [Halfprin EC] 81 mg PO QDAY tablet 05/10/19 05/25/19 05/25/19 Rx oxyCODONE /ACETAMINOPHEN [Percocet 1 tab PO Q6H PRN #20 tablet 05/10/19 05/25/19 05/24/19 Rx 5/325 mg] Esomeprazole Magnesium [NexIUM] 40 mg PO BID 30 Days #15 suspdr.pkt 05/25/19 Unknown Rx ED Physical Exam - General Limitations: Physical Limitation General appearance: alert, in no apparent distress - Head Head exam: Present: atraumatic, normocephalic - Eye Eye exam: Present: normal appearance, PERRL, other (scleral pallor) Pupils: Present: normal accommodation, other - ENT ENT exam: Present: mucous membranes moist - Neck Neck exam: Present: normal inspection - Respiratory Respiratory exam: Present: normal lung sounds bilaterally. Absent: respiratory distress - Cardiovascular Cardiovascular Exam: Present: regular rate, normal rhythm. Absent: systolic murmur, diastolic murmur, rubs, gallop - GI/Abdominal GI/Abdominal exam: Present: soft, normal bowel sounds - Rectal Rectal exam: Present: deferred - Back Exam Back exam: Present: normal inspection - Neurological Exam Neurological exam: Present: alert, oriented X3 - Psychiatric Psychiatric exam: Present: normal affect, normal mood - Skin Skin exam: Present: warm, dry, intact, normal color. Absent: rash ED Course Vital Signs 05/25/19 05/25/19 05/25/19 09:44 09:54 10:00 Temperature 98.4 F Pulse Rate 105 H 105 H Respiratory 22 23 22 Rate Blood Pressure 179/80 180/81 Blood Pressure [Left] O2 Sat by Pulse 98 97 97 Oximetry 05/25/19 05/25/19 05/25/19 11:01 11:31 12:00 Temperature 98.3 F Pulse Rate 102 H Respiratory 19 22 25 H Rate Blood Pressure 180/81 189/87 Blood Pressure 190/88 [Left] O2 Sat by Pulse 96 98 98 Oximetry 05/25/19 05/25/19 05/25/19 13:00 14:01 15:01 Temperature Pulse Rate Respiratory Rate Blood Pressure 169/79 173/90 180/86 Blood Pressure [Left] O2 Sat by Pulse 98 95 99 Oximetry - Reevaluation(s) Reevaluation #1: Discussed all results with patient. Patient states he does not want to have a blood transfusion. 05/25/19 11:24 Reevaluation #2: She tolerated by mouth intake. Patient tolerated fluid and solid food intake. I discussed all results with patient. Patient is stable for discharge. Patient will be discharged home. Patient agrees with plan of care. Patient given discharge instructions. Patient voiced understanding discharge instructions. 05/25/19 12:53 - Consultations Consultation #1: GI paged. I discussed the case with GI nurse practitionerJacinda. GI to see the patient. 05/25/19 11:21 ESL patient and recommends Nexium 40 mg by mouth twice a day for 2 weeks and follow up with GI as an outpatient. Rectal exam negative. From a GI standpoint the patient has been medically cleared. 05/25/19 12:53 ED Medical Decision Making - Lab Data Result diagrams: 05/25/19 10:01 05/25/19 10:01 - Medical Decision Making Patient is a 58-year-old male that presents emergency room with complaints of nausea, vomiting or vomiting. Patient denies pain. Patient was seen in the ER by GI. GI recommendation received. GI recommends twice a day PPI and does not recommend endoscope. GI does not recommend admission. Patient [facility] to by mouth intake. Patient tolerated by mouth fluids and food. Patient stable for discharge. Patient's labs consistent with end-stage renal disease and anemia. Patient blood count at his baseline. Patient discharged home with Nexium 40 mg by mouth twice a day. Patient given discharge instructions. Patient stable for discharge. - Differential Diagnosis upper GI bleed. Gastritis. Ulcer. Critical Care Time: Yes Critical care attestation.: If time is entered above; I have spent that time in minutes in the direct care of this critically ill patient, excluding procedure time. Critical Care Time: 35 MINUTES ED Disposition Clinical Impression: Gastroenteritis GERD (gastroesophageal reflux disease) Qualifiers: Esophagitis presence: esophagitis presence not specified Qualified Code(s): K21.9 - Gastro-esophageal reflux disease without esophagitis Nausea & vomiting Qualifiers: Vomiting type: unspecified Vomiting Intractability: non-intractable Qualified Code(s): R11.2 - Nausea with vomiting, unspecified Vomiting of blood Qualifiers: Nausea presence: with nausea Qualified Code(s): K92.0 - Hematemesis Disposition: DC-01 TO HOME OR SELFCARE Is pt being admited?: No Does the pt Need Aspirin: No Condition: Stable Instructions: Diet for Ulcers and Gastritis (ED), Gastroenteritis (ED), Gastroe sophageal Reflux Disease (ED), Acute Nausea and Vomiting (ED) Additional Instructions: Patient to follow up with primary care in 2-3 days. Patient to follow up with GI in 2-3 days. He is to follow up with [facility] and continue current hemodialysis schedule. Patient to return to ER if condition worsens. Patient to take meds as directed. Patient increase water. Patient to eat a reflux and BRAT diet. Patient to take Tylenol when necessary for pain. Prescriptions: Esomeprazole Magnesium [NexIUM] 40 mg PO BID 30 Days #15 suspdr.pkt Referrals: SACHA BANEGAS MD [Primary Care Provider] - 2-3 Days LARISA SHANNON MD [Staff Physician] - 2-3 Days Time of Disposition: 12:58
[2019-05-25 10:19] LABS: Hematocrit 34.6 % (35.5-45.6); Hemoglobin 11.1 gm/dl (11.8-15.2); Mean Corpuscular HGB Conc 32 % (32-34); Mean Corpuscular Volume 83 fl (84-94); Platelet Count 405 K/mm3 (140-440); Red Blood Count 4.18 M/mm3 (3.65-5.03); Red Cell Distribution Width 16.8 % (13.2-15.2)
[2019-05-25 10:42] LABS: Albumin 3.9 g/dL (3.9-5); Calcium 10.5 mg/dL (8.4-10.2)
[2019-05-25] MEDS ORDERED: PROTONIX 80 MG in NACL 0.9% 100 ML IV SCH (12:00)
[2019-05-25] MEDS ORDERED: ZOFRAN IV ONE (12:07)
[2019-05-25] MEDS ORDERED: ZOFRAN ONE (12:10)
[2019-05-25 12:20] LABS: Anisocytosis 2+; Basophils % (Manual) 0 % (0.0-1.8); Eosinophils % (Manual) 0 % (0.0-4.3); Hypochromasia Few; Macrocytosis Few; Platelet Estimate Consistent w Auto; Total Cells Counted 100
--- NOTE | 2019-05-25 12:52 | Gastroenterology Consultation ---
<TARUN CERRATO - Last Filed: 05/25/19 12:56> History of Present Illness - Reason for Consult Consult date: 05/25/19 coffee-ground emesis Requesting physician: COLLETTE ERVIN III - History of Present Illness Patient is a 58 y/o male with multiple medical conditions to include HTN, DM (uncontrolled), GERD, COPD, seizures, ESRD on HD, and chronic anemia who presented to ED with c/o coffee-ground emesis to which GI has been consulted. Upon exam, patient was resting on stretcher in ED w/o acute distress. He reports dark brown emesis that began this morning. No hematemesis, melena, or hematochezia (rectal revealed green/brown stool). Denies fever, CP, SOB, wt loss, abdominal pain, dysphagia, odynophagia, or LGI symptoms. No hx of PUD or liver disease. Patient is previously known to our service from a prior consult for similar symptoms in 01/2017 with EGD revealing erosive esophagitis. Currently not on PPI at home. Past History Past Medical History: other (as per HPI) Past Surgical History: Other (Left BKA, Right AV shunt, EGD 2016 w/ erosive esophagitis) Social history: other (former smoker) Medications and Allergies Allergies Allergy/AdvReac Type Severity Reaction Status Date / Time Penicillins Allergy Unknown Verified 11/10/18 09:47 Home Medications Medication Instructions Recorded Confirmed Last Taken Type Ascorbic Acid [Vitamin C] 500 mg PO BID 12/27/16 05/25/19 05/25/19 History AtorvaSTATin [Lipitor] 40 mg PO QHS 12/27/16 05/25/19 05/25/19 History Ferrous Sulfate [Feosol 325 MG tab] 325 mg PO BID 12/27/16 05/25/19 05/24/19 History Folic Acid [Folvite] 1 mg PO QDAY 12/27/16 05/25/19 05/25/19 History Ondansetron [Zofran TAB] 4 mg PO Q4H PRN 12/27/16 05/25/19 05/25/19 History Thiamine [Vitamin B-1] 100 mg PO QDAY 12/27/16 05/25/19 05/25/19 History Vit B Comp No.3/Folic/C/Biotin 1 each PO DAILY 12/27/16 05/25/19 05/25/19 History [Cheryl-Pricilla Rx Tablet] diphenhydrAMINE [Benadryl CAP] 25 mg PO Q6HR PRN 12/27/16 05/25/19 05/24/19 History Insulin Lispro [HumaLOG VIAL] 20 unit SQ BID 02/14/17 05/25/19 05/25/19 History Insulin Lispro [Humalog 100 See Protocol SQ AC 02/14/17 05/25/19 05/22/19 History UNITS/ML Kwikpen] Cinacalcet [Sensipar] 30 mg PO QDAY 11/10/18 05/25/19 05/25/19 History Donepezil HCl 10 mg PO QHS 11/10/18 05/25/19 05/25/19 History Insulin Glargine,Hum.rec.anlog 44 units SQ QHS 11/10/18 05/25/19 05/24/19 History [Lantus] Losartan Potassium 100 mg PO QHS 11/10/18 05/25/19 05/25/19 History Metoprolol Tartrate 75 mg PO BID 11/10/18 05/25/19 05/25/19 History Sevelamer Carbonate 2,400 mg PO TIDWM 11/10/18 05/25/19 05/25/19 History cloNIDine-TTS PATCH [Catapres-Tts 1 patch TD Q7D 11/10/18 05/25/19 05/19/19 History 0.1MG Patch] raNITIdine HCl [Zantac] 150 mg PO QHS 11/10/18 05/25/19 05/24/19 History levETIRAcetam [Keppra TAB] 250 mg PO BID tablet 11/12/18 05/25/19 05/25/19 Rx amLODIPine [Norvasc] 10 mg PO DAILY 05/08/19 05/25/19 05/25/19 History Aspirin EC [Halfprin EC] 81 mg PO QDAY tablet 05/10/19 05/25/19 05/25/19 Rx oxyCODONE /ACETAMINOPHEN [Percocet 1 tab PO Q6H PRN #20 tablet 05/10/19 05/25/19 05/24/19 Rx 5/325 mg] Esomeprazole Magnesium [NexIUM] 40 mg PO BID 30 Days #15 suspdr.pkt 05/25/19 Unknown Rx Active Meds: Active Medications Pantoprazole Sodium 80 mg/ (Sodium Chloride) 100 mls @ 10 mls/hr IV DIRECT LUZ medications reviewed/updated as required Review of Systems - Review of Systems All systems: negative Gastrointestinal: coffee ground emesis Exam - Constitutional Vital Signs: Temp Pulse Resp BP Pulse Ox 98.3 F 102 H 25 H 189/87 98 05/25/19 11:31 05/25/19 11:31 05/25/19 12:00 05/25/19 12:00 05/25/19 12:00 General appearance: no acute distress - EENT Eyes: PERRL, EOM intact ENT: hearing intact - Respiratory Respiratory effort: normal - Cardiovascular Rhythm: other (tachycardia) - Gastrointestinal General gastrointestinal: Present: soft, non-tender, non-distended, normal bowel sounds Rectal Exam: other (rectal with green/brown stool-emergency nurse present during exam (Eris ARMENTA)) - Neurologic Neurological: alert and oriented x3 - Labs CBC & Chem 7: 05/25/19 10:01 05/25/19 10:01 Lab Results: Laboratory Results - last 24 hr 05/25/19 05/25/19 05/25/19 10:01 10:01 10:01 WBC 15.3 H RBC 4.18 Hgb 11.1 L Hct 34.6 L MCV 83 L MCH 27 L MCHC 32 RDW 16.8 H Plt Count 405 Add Manual Diff Complete Total Counted 100 Seg Neutrophils % Dip Stand Loader Seg Neuts % (Manual) 91.0 H Band Neutrophils % 0 Lymphocytes % (Manual) 5.0 L Reactive Lymphs % (Man) 0 Monocytes % (Manual) 4.0 Eosinophils % (Manual) 0 Basophils % (Manual) 0 Metamyelocytes % 0 Myelocytes % 0 Promyelocytes % 0 Blast Cells % 0 Nucleated RBC % Not Reportable Seg Neutrophils # Man 13.9 H Band Neutrophils # 0.0 Lymphocytes # (Manual) 0.8 L Abs React Lymphs (Man) 0.0 Monocytes # (Manual) 0.6 Eosinophils # (Manual) 0.0 Basophils # (Manual) 0.0 Metamyelocytes # 0.0 Myelocytes # 0.0 Promyelocytes # 0.0 Blast Cells # 0.0 WBC Morphology Not Reportable Hypersegmented Neuts Not Reportable Hyposegmented Neuts Not Reportable Hypogranular Neuts Not Reportable Smudge Cells Not Reportable Toxic Granulation Not Reportable Toxic Vacuolation Not Reportable Dohle Bodies Not Reportable Pelger-Huet Anomaly Not Reportable Aiden Rods Not Reportable Platelet Estimate Consistent w auto Clumped Platelets Not Reportable Plt Clumps, EDTA Not Reportable Large Platelets Not Reportable Giant Platelets Not Reportable Platelet Satelliting Not Reportable Plt Morphology Comment Not Reportable RBC Morphology Not Reportable Dimorphic RBCs Not Reportable Polychromasia Not Reportable Hypochromasia Few Poikilocytosis Not Reportable Anisocytosis 2+ Microcytosis Few Macrocytosis Few Spherocytes Not Reportable Pappenheimer Bodies Not Reportable Sickle Cells Not Reportable Target Cells Not Reportable Tear Drop Cells Not Reportable Ovalocytes Not Reportable Helmet Cells Not Reportable Chance-Mercer Bodies Not Reportable [place] Rings Not Reportable [place] Cells Not Reportable Bite Cells Not Reportable Crenated Cell Not Reportable Elliptocytes Not Reportable Acanthocytes (Spur) Not Reportable Rouleaux Not Reportable Hemoglobin C Crystals Not Reportable Schistocytes Not Reportable Malaria parasites Not Reportable Yoan Bodies Not Reportable Hem Pathologist Commnt No Sodium 138 Potassium 4.8 Chloride 91.6 L Carbon Dioxide 26 Anion Gap 25 BUN 43 H Creatinine 9.2 H Estimated GFR 7 BUN/Creatinine Ratio 5 Glucose 321 H Calcium 10.5 H Total Bilirubin 0.20 AST 10 ALT 7 Alkaline Phosphatase 106 Total Protein 8.2 Albumin 3.9 Albumin/Globulin Ratio 0.9 Blood Type B POSITIVE Antibody Screen Negative Assessment and Plan 1.coffee-ground emesis -H/H 11.1/34.6-above baseline compared to previous labs -continue to monitor H/H and transfuse as needed -patient reports CGE that began today. No melena or hematochezia (rectal with green/brown stool). Denies abd pain. -last EGD 01/2017 for similar symptoms revealed erosive esophagitis -etiology-likely 2/2 known esophagitis vs other (+/- underlying gastroparesis due to uncontrolled DM?) -no plan for repeat EGD at this time, unless overt bleeding develops -continue PPI (BID) -optimize glycemic control -okay to start on trial of clear liquids and advance diet as tolerated (small/frequent meals) -continue supportive care -if H/H remains stable and once tolerating PO, okay to be d/c per GI standpoint on PPI with f/u in clinic in 1-2 weeks <SARAH RENNER R - Last Filed: 05/26/19 12:21> Exam - Constitutional Vital Signs: Temp Pulse Resp BP Pulse Ox 98.3 F 102 H 25 H 180/86 99 05/25/19 11:31 05/25/19 11:31 05/25/19 12:00 05/25/19 15:01 05/25/19 15:01 - Labs CBC & Chem 7: 05/25/19 10:01 05/25/19 10:01 Lab Results: Laboratory Results - last 24 hr 05/25/19 10:01 Add Manual Diff Complete Total Counted 100 Seg Neuts % (Manual) 91.0 H Band Neutrophils % 0 Lymphocytes % (Manual) 5.0 L Reactive Lymphs % (Man) 0 Monocytes % (Manual) 4.0 Eosinophils % (Manual) 0 Basophils % (Manual) 0 Metamyelocytes % 0 Myelocytes % 0 Promyelocytes % 0 Blast Cells % 0 Nucleated RBC % Not Reportable Seg Neutrophils # Man 13.9 H Band Neutrophils # 0.0 Lymphocytes # (Manual) 0.8 L Abs React Lymphs (Man) 0.0 Monocytes # (Manual) 0.6 Eosinophils # (Manual) 0.0 Basophils # (Manual) 0.0 Metamyelocytes # 0.0 Myelocytes # 0.0 Promyelocytes # 0.0 Blast Cells # 0.0 WBC Morphology Not Reportable Hypersegmented Neuts Not Reportable Hyposegmented Neuts Not Reportable Hypogranular Neuts Not Reportable Smudge Cells Not Reportable Toxic Granulation Not Reportable Toxic Vacuolation Not Reportable Dohle Bodies Not Reportable Pelger-Huet Anomaly Not Reportable Aiden Rods Not Reportable Platelet Estimate Consistent w auto Clumped Platelets Not Reportable Plt Clumps, EDTA Not Reportable Large Platelets Not Reportable Giant Platelets Not Reportable Platelet Satelliting Not Reportable Plt Morphology Comment Not Reportable RBC Morphology Not Reportable Dimorphic RBCs Not Reportable Polychromasia Not Reportable Hypochromasia Few Poikilocytosis Not Reportable Anisocytosis 2+ Microcytosis Few Macrocytosis Few Spherocytes Not Reportable Pappenheimer Bodies Not Reportable Sickle Cells Not Reportable Target Cells Not Reportable Tear Drop Cells Not Reportable Ovalocytes Not Reportable Helmet Cells Not Reportable Chance-Mercer Bodies Not Reportable [place] Rings Not Reportable [place] Cells Not Reportable Bite Cells Not Reportable Crenated Cell Not Reportable Elliptocytes Not Reportable Acanthocytes (Spur) Not Reportable Rouleaux Not Reportable Hemoglobin C Crystals Not Reportable Schistocytes Not Reportable Malaria parasites Not Reportable Yoan Bodies Not Reportable Hem Pathologist Commnt No Assessment and Plan Pt seen 05/25. Plan as noted.
[2019-05-25 15:25] VITALS: BP 180/86
== END 2019-05-25 19:00 | disposition home or self-care (01) ==
LOC: ED 08:25
DX: K52.9 Noninfective gastroenteritis and colitis, unspecified (principal); K21.9 Gastro-esophageal reflux disease without esophagitis; K92.0 Hematemesis; I10 Essential (primary) hypertension; E11.9 Type 2 diabetes mellitus without complications; J45.909 Unspecified asthma, uncomplicated; F03.90 Unspecified dementia, unspecified severity, without behavioral disturbance, psychotic disturbance, mood disturbance, and anxiety; Z87.891 Personal history of nicotine dependence; Z86.2 Personal history of diseases of the blood and blood-forming organs and certain disorders involving the immune mechanism; Z88.0 Allergy status to penicillin; Z79.899 Other long term (current) drug therapy
CPT/HCPCS: 36415; 80053; 85007; 85025; 86850; 86900; 86901; 96374; 99291; J2405; C9113

== ENCOUNTER 2020-04-16 23:00 | Emergency (ER) | payer MEDICAID ==
--- NOTE | 2020-04-17 02:19 | Cat Scan Report ---
CT HEAD WITHOUT CONTRAST INDICATION: Headache, neck pain TECHNIQUE: All CT scans at this location are performed using CT dose reduction for ALARA by means of automated exposure control. COMPARISON: 03/05/2020 FINDINGS: BRAIN: No hemorrhage or mass effect are seen. No evidence of acute infarction is noted. Atrophic veras ges are again seen. Prominent bilateral white matter microvascular changes are again noted. Tiny bila teral basal ganglia hypodensities are unchanged. ORBITS: Normal as visualized. SOFT TISSUES OF HEAD: Normal. CALVARIUM: Normal. VISUALIZED PARANASAL SINUSES AND MASTOID AIR CELLS: Clear. ADDITIONAL FINDINGS: None. IMPRESSION: No acute intracranial abnormality. CT CERVICAL SPINE WITHOUT CONTRAST INDICATION: Patient complains of head and neck pain from an unknown injury. TECHNIQUE: All CT scans at this location are performed using CT dose reduction for ALARA by means of automated exposure control. Axial CT images were obtained through the cervical spine. Sagittal and co anna reformatted images were produced. COMPARISON: None available. Cervical spine findings: Prominent lower cervical degenerative changes are again noted without signif icant change. Mild retrolisthesis at C5-6 is unchanged. No fractures or new subluxations are noted. A rthritic changes are again seen in the lower cervical facets and at C1 to. No obvious disc herniation is seen. Additional findings: None. IMPRESSION: No acute findings. Signer Name: Salomón Darling MD Signed: 04/17/2020 2:15 AM Workstation Name: [id number]
--- NOTE | 2020-04-17 02:26 | Emergency Department Report ---
ED Fall HPI - General Chief Complaint: Fall Stated Complaint: FALL Time Seen by Provider: 04/16/20 23:13 Source: patient, old records reviewed Mode of arrival: Stretcher - History of Present Illness Initial Comments: Patient is a 59-year-old F Indian male with history of below knee amputations bilaterally who is nursing facility who was found lying on the floor today. Patient had fallen. Patient is poorly verbal at baseline and is on able to say whether he lost consciousness or not. residential staff believed that his mental status was slightly less than baseline so they brought into the emergency department for evaluation. - Related Data Home Medications Medication Instructions Recorded Confirmed Last Taken diphenhydrAMINE [Benadryl CAP] 25 mg PO Q6HR PRN 12/27/16 11/02/19 05/24/19 Insulin Lispro [Humalog 100 See Protocol SQ AC 02/14/17 11/02/19 05/22/19 UNITS/ML Kwikpen] Donepezil HCl 10 mg PO QHS 11/10/18 11/02/19 05/25/19 Losartan Potassium 100 mg PO QHS 11/10/18 11/02/19 05/25/19 Metoprolol Tartrate 75 mg PO BID 11/10/18 11/02/19 05/25/19 Sevelamer Carbonate 2,400 mg PO TIDWM 11/10/18 11/02/19 05/25/19 Epoetin Darvin 10,000 Unit [Procrit] 10,000 unit IJ PRN 07/11/19 11/02/19 Unknown Previous Rx's Medication Instructions Recorded Last Taken Type ALBUTEROL NEB's [Proventil 0.083% 2.5 mg IH Q4HRT PRN #30 nebu 11/07/19 Unknown Rx NEBS] Acetaminophen [Acetaminophen TAB] 1 tab PO Q4HR PRN #15 11/07/19 Unknown Rx Ascorbic Acid [Vitamin C] 500 mg PO BID #60 tablet 11/07/19 Unknown Rx Aspirin [Aspirin BABY CHEW TAB] 81 mg PO QDAY #30 tab.chew 11/07/19 Unknown Rx AtorvaSTATin [Lipitor] 40 mg PO QHS #30 tablet 11/07/19 Unknown Rx Cinacalcet [Sensipar] 30 mg PO QDAY #30 tablet 11/07/19 Unknown Rx Ferrous Sulfate [Feosol 325 MG tab] 325 mg PO BID #60 tablet 11/07/19 Unknown Rx Folic Acid [Folvite] 1 mg PO DAILY #30 tablet 11/07/19 Unknown Rx Insulin Glargine [Lantus VIAL] 20 units SUB-Q QHS units 11/07/19 Unknown Rx Pantoprazole [Protonix TAB] 40 mg PO QDAY #15 tablet 11/07/19 Unknown Rx Thiamine [Vitamin B-1] 100 mg PO DAILY #30 tablet 11/07/19 Unknown Rx amLODIPine 10 mg PO QHS #30 tab 11/07/19 05/25/19 Rx bisacodyL [Dulcolax tab] 10 mg PO QDAY PRN #30 tablet 11/07/19 Unknown Rx cloNIDine-TTS PATCH [Catapres-Tts 0.1 mg TD Tu #4 patch 11/07/19 Unknown Rx 0.1MG Patch] levETIRAcetam [Keppra TAB] 250 mg PO BID #30 tablet 11/07/19 05/25/19 Rx Allergies Allergy/AdvReac Type Severity Reaction Status Date / Time Penicillins Allergy Unknown Verified 07/11/19 17:31 ED Review of Systems ROS: Stated complaint: FALL Other details as noted in HPI Comment: Unobtainable due to pts medical conditions ED Past Medical Hx - Past Medical History Previous Medical History?: Yes Hx Hypertension: Yes Hx CVA: No Hx Heart Attack/AMI: No Hx Congestive Heart Failure: No Hx Diabetes: Yes Hx Deep Vein Thrombosis: No Hx GERD: Yes Hx Liver Disease: No Hx Renal Disease: Yes Hx Headaches / Migraines: No Hx Seizures: Yes (on meds) Hx Kidney Stones: Yes Hx Asthma: Yes Hx COPD: No Hx Dementia: Yes Hx HIV: No Additional medical history: Anemia - Surgical History Past Surgical History?: Yes Additional Surgical History: Left BKA, 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] - Social History Smoking Status: Current Every Day Smoker - Medications Home Medications: Home Medications Medication Instructions Recorded Confirmed Last Taken Type diphenhydrAMINE [Benadryl CAP] 25 mg PO Q6HR PRN 12/27/16 11/02/19 05/24/19 History Insulin Lispro [Humalog 100 See Protocol SQ AC 02/14/17 11/02/19 05/22/19 History UNITS/ML Kwikpen] Donepezil HCl 10 mg PO QHS 11/10/18 11/02/19 05/25/19 History Losartan Potassium 100 mg PO QHS 11/10/18 11/02/19 05/25/19 History Metoprolol Tartrate 75 mg PO BID 11/10/18 11/02/19 05/25/19 History Sevelamer Carbonate 2,400 mg PO TIDWM 11/10/18 11/02/19 05/25/19 History Epoetin Darvin 10,000 Unit [Procrit] 10,000 unit IJ PRN 07/11/19 11/02/19 Unknown History ALBUTEROL NEB's [Proventil 0.083% 2.5 mg IH Q4HRT PRN #30 nebu 11/07/19 Unknown Rx NEBS] Acetaminophen [Acetaminophen TAB] 1 tab PO Q4HR PRN #15 11/07/19 11/02/19 Unknown Rx Ascorbic Acid [Vitamin C] 500 mg PO BID #60 tablet 11/07/19 Unknown Rx Aspirin [Aspirin BABY CHEW TAB] 81 mg PO QDAY #30 tab.chew 11/07/19 Unknown Rx AtorvaSTATin [Lipitor] 40 mg PO QHS #30 tablet 11/07/19 Unknown Rx Cinacalcet [Sensipar] 30 mg PO QDAY #30 tablet 11/07/19 11/02/19 Unknown Rx Ferrous Sulfate [Feosol 325 MG tab] 325 mg PO BID #60 tablet 11/07/19 Unknown Rx Folic Acid [Folvite] 1 mg PO DAILY #30 tablet 11/07/19 Unknown Rx Insulin Glargine [Lantus VIAL] 20 units SUB-Q QHS units 11/07/19 Unknown Rx Pantoprazole [Protonix TAB] 40 mg PO QDAY #15 tablet 11/07/19 Unknown Rx Thiamine [Vitamin B-1] 100 mg PO DAILY #30 tablet 11/07/19 Unknown Rx amLODIPine 10 mg PO QHS #30 tab 11/07/19 11/02/19 05/25/19 Rx bisacodyL [Dulcolax tab] 10 mg PO QDAY PRN #30 tablet 11/07/19 Unknown Rx cloNIDine-TTS PATCH [Catapres-Tts 0.1 mg TD Tu #4 patch 11/07/19 11/02/19 Unknown Rx 0.1MG Patch] levETIRAcetam [Keppra TAB] 250 mg PO BID #30 tablet 11/07/19 11/02/19 05/25/19 Rx ED Physical Exam - General Limitations: Other General appearance: alert, in no apparent distress - Head Head exam: Present: atraumatic, normocephalic - Eye Eye exam: Present: normal appearance - ENT ENT exam: Present: mucous membranes moist - Neck Neck exam: Present: normal inspection - Respiratory Respiratory exam: Present: normal lung sounds bilaterally. Absent: respiratory distress, wheezes, rales, rhonchi - Cardiovascular Cardiovascular Exam: Present: regular rate, normal rhythm, normal heart sounds. Absent: systolic murmur, diastolic murmur, rubs, gallop - GI/Abdominal GI/Abdominal exam: Present: soft, normal bowel sounds. Absent: distended, tenderness, guarding - Rectal Rectal exam: Present: deferred - Extremities Exam Extremities exam: Present: normal inspection - Back Exam Back exam: Present: normal inspection - Neurological Exam Neurological exam: Present: alert, oriented X3 - Psychiatric Psychiatric exam: Present: normal affect, normal mood - Skin Skin exam: Present: warm, dry, intact, normal color. Absent: rash ED Course Vital Signs 04/16/20 23:11 Temperature 98.4 F Pulse Rate 82 Respiratory 18 Rate Blood Pressure 142/78 O2 Sat by Pulse 100 Oximetry ED Medical Decision Making - Radiology Data CT HEAD WITHOUT CONTRAST INDICATION: Headache, neck pain TECHNIQUE: All CT scans at this location are performed using CT dose reduction for ALARA by means of automated exposure control. COMPARISON: 03/05/2020 FINDINGS: BRAIN: No hemorrhage or mass effect are seen. No evidence of acute infarction is noted. Atrophic changes are again seen. Prominent bilateral white matter microvascular changes are again noted. Tiny bilateral basal ganglia hypodensities are unchanged. ORBITS: Normal as visualized. SOFT TISSUES OF HEAD: Normal. CALVARIUM: Normal. VISUALIZED PARANASAL SINUSES AND MASTOID AIR CELLS: Clear. ADDITIONAL FINDINGS: None. IMPRESSION: No acute intracranial abnormality. CT CERVICAL SPINE WITHOUT CONTRAST INDICATION: Patient complains of head and neck pain from an unknown injury. TECHNIQUE: All CT scans at this location are performed using CT dose reduction for ALARA by means of automated exposure control. Axial CT images were obtained through the cervical spine. Sagittal and coronal reformatted images were produced. COMPARISON: None available. Cervical spine findings: Prominent lower cervical degenerative changes are again noted without significant change. Mild retrolisthesis at C5-6 is unchanged. No fractures or new subluxations are noted. Arthritic changes are again seen in the lower cervical facets and at C1 to. No obvious disc herniation is seen. Additional findings: None. IMPRESSION: No acute findings. Signer Name: Salomón Darling MD Signed: 04/17/2020 1:15 AM Workstation Name: [id number] CT HEAD WITHOUT CONTRAST INDICATION: Headache, neck pain TECHNIQUE: All CT scans at this location are performed using CT dose reduction for ALARA by means of automated exposure control. COMPARISON: 03/05/2020 FINDINGS: BRAIN: No hemorrhage or mass effect are seen. No evidence of acute infarction is noted. Atrophic changes are again seen. Prominent bilateral white matter microvascular changes are again noted. Tiny bilateral basal ganglia hypodensities are unchanged. ORBITS: Normal as visualized. SOFT TISSUES OF HEAD: Normal. CALVARIUM: Normal. VISUALIZED PARANASAL SINUSES AND MASTOID AIR CELLS: Clear. ADDITIONAL FINDINGS: None. IMPRESSION: No acute intracranial abnormality. CT CERVICAL SPINE WITHOUT CONTRAST INDICATION: Patient complains of head and neck pain from an unknown injury. TECHNIQUE: All CT scans at this location are performed using CT dose reduction for ALARA by means of automated exposure control. Axial CT images were obtained through the cervical spine. Sagittal and coronal reformatted images were produced. COMPARISON: None available. Cervical spine findings: Prominent lower cervical degenerative changes are again noted without significant change. Mild retrolisthesis at C5-6 is unchanged. No fractures or new subluxations are noted. Arthritic changes are again seen in the lower cervical facets and at C1 to. No obvious disc herniation is seen. Additional findings: None. IMPRESSION: No acute findings. Signer Name: Salomón aDrling MD Signed: 04/17/2020 1:15 AM Workstation Name: [id number] - Medical Decision Making No acute injuries were seen on CT. Patient will be discharged back to group home. Critical care attestation.: If time is entered above; I have spent that time in minutes in the direct care of this critically ill patient, excluding procedure time. ED Disposition Clinical Impression: Fall with injury, Closed head injury Disposition: DC-01 TO HOME OR SELFCARE Is pt being admited?: No Does the pt Need Aspirin: No Condition: Stable Additional Instructions: Patient is medically cleared Time of Disposition: 02:25
[2020-04-17 05:22] VITALS: BP 164/81
== END 2020-04-17 05:22 | disposition home or self-care (01) ==
LOC: ED 23:00
DX: S09.90XA Unspecified injury of head, initial encounter (principal); I10 Essential (primary) hypertension; E11.9 Type 2 diabetes mellitus without complications; K21.9 Gastro-esophageal reflux disease without esophagitis; R56.9 Unspecified convulsions; J45.909 Unspecified asthma, uncomplicated; F03.90 Unspecified dementia, unspecified severity, without behavioral disturbance, psychotic disturbance, mood disturbance, and anxiety; F17.200 Nicotine dependence, unspecified, uncomplicated; Z87.442 Personal history of urinary calculi; Z98.890 Other specified postprocedural states; Z89.512 Acquired absence of left leg below knee; Z79.4 Long term (current) use of insulin; Z79.899 Other long term (current) drug therapy; Z88.0 Allergy status to penicillin; X58.XXXA Exposure to other specified factors, initial encounter; Y93.89 Activity, other specified; Y92.89 Other specified places as the place of occurrence of the external cause; Y99.8 Other external cause status
CPT/HCPCS: 70450; 72125

== ENCOUNTER 2020-06-12 19:29 | Emergency (ER) | payer MEDICAID ==
--- NOTE | 2020-06-12 21:26 | Emergency Department Report ---
ED General Adult HPI - General Chief complaint: Fall Stated complaint: EVAL FOR FALL Time Seen by Provider: 06/12/20 20:09 Source: patient, EMS Mode of arrival: Stretcher Limitations: Physical Limitation - History of Present Illness Initial comments: The patient presents to the emergency department from a local home status post a fall out of bed. Patient states he was sleeping he rolled out of the bed hitting his head on the floor. Patient denies any neck or hip pain. Patient states he did not have loss of consciousness. -: Sudden Location: head Radiation: non-radiation Severity scale (0 -10): 1 Quality: aching Consistency: constant Improves with: none Worsens with: none Associated Symptoms: denies other symptoms Treatments Prior to Arrival: none - Related Data Home Medications Medication Instructions Recorded Confirmed Last Taken diphenhydrAMINE [Benadryl CAP] 25 mg PO Q6HR PRN 12/27/16 11/02/19 05/24/19 Insulin Lispro [Humalog 100 See Protocol SQ AC 02/14/17 11/02/19 05/22/19 UNITS/ML Kwikpen] Donepezil HCl 10 mg PO QHS 11/10/18 11/02/19 05/25/19 Losartan Potassium 100 mg PO QHS 11/10/18 11/02/19 05/25/19 Metoprolol Tartrate 75 mg PO BID 11/10/18 11/02/19 05/25/19 Sevelamer Carbonate 2,400 mg PO TIDWM 11/10/18 11/02/19 05/25/19 Epoetin Darvin 10,000 Unit [Procrit] 10,000 unit IJ PRN 07/11/19 11/02/19 Unknown Previous Rx's Medication Instructions Recorded Last Taken Type ALBUTEROL NEB's [Proventil 0.083% 2.5 mg IH Q4HRT PRN #30 nebu 11/07/19 Unknown Rx NEBS] Acetaminophen [Acetaminophen TAB] 1 tab PO Q4HR PRN #15 11/07/19 Unknown Rx Ascorbic Acid [Vitamin C] 500 mg PO BID #60 tablet 11/07/19 Unknown Rx Aspirin [Aspirin BABY CHEW TAB] 81 mg PO QDAY #30 tab.chew 11/07/19 Unknown Rx AtorvaSTATin [Lipitor] 40 mg PO QHS #30 tablet 11/07/19 Unknown Rx Cinacalcet [Sensipar] 30 mg PO QDAY #30 tablet 11/07/19 Unknown Rx Ferrous Sulfate [Feosol 325 MG tab] 325 mg PO BID #60 tablet 11/07/19 Unknown Rx Folic Acid [Folvite] 1 mg PO DAILY #30 tablet 11/07/19 Unknown Rx Insulin Glargine [Lantus VIAL] 20 units SUB-Q QHS units 11/07/19 Unknown Rx Pantoprazole [Protonix TAB] 40 mg PO QDAY #15 tablet 11/07/19 Unknown Rx Thiamine [Vitamin B-1] 100 mg PO DAILY #30 tablet 11/07/19 Unknown Rx amLODIPine 10 mg PO QHS #30 tab 11/07/19 05/25/19 Rx bisacodyL [Dulcolax tab] 10 mg PO QDAY PRN #30 tablet 11/07/19 Unknown Rx cloNIDine-TTS PATCH [Catapres-Tts 0.1 mg TD Tu #4 patch 11/07/19 Unknown Rx 0.1MG Patch] levETIRAcetam [Keppra TAB] 250 mg PO BID #30 tablet 11/07/19 05/25/19 Rx Allergies Allergy/AdvReac Type Severity Reaction Status Date / Time Penicillins Allergy Unknown Verified 07/11/19 17:31 ED Review of Systems ROS: Stated complaint: EVAL FOR FALL Other details as noted in HPI Comment: All other systems reviewed and negative Constitutional: denies: chills, fever Eyes: denies: eye pain, eye discharge, vision change ENT: denies: ear pain, throat pain Respiratory: denies: cough, shortness of breath, wheezing Cardiovascular: denies: chest pain, palpitations Endocrine: no symptoms reported Gastrointestinal: denies: abdominal pain, nausea, diarrhea Genitourinary: denies: urgency, dysuria Musculoskeletal: denies: back pain, joint swelling, arthralgia Skin: denies: rash, lesions Neurological: denies: headache, weakness, paresthesias Psychiatric: denies: anxiety, depression Hematological/Lymphatic: denies: easy bleeding, easy bruising ED Past Medical Hx - Past Medical History Hx Hypertension: Yes Hx CVA: No Hx Heart Attack/AMI: No Hx Congestive Heart Failure: No Hx Diabetes: Yes Hx Deep Vein Thrombosis: No Hx GERD: Yes Hx Liver Disease: No Hx Renal Disease: Yes Hx Headaches / Migraines: No Hx Seizures: Yes (on meds) Hx Kidney Stones: Yes Hx Asthma: Yes Hx COPD: No Hx Dementia: Yes Hx HIV: No Additional medical history: Anemia - Surgical History Additional Surgical History: Left BKA, 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] - Social History Smoking Status: Current Every Day Smoker - Medications Home Medications: Home Medications Medication Instructions Recorded Confirmed Last Taken Type diphenhydrAMINE [Benadryl CAP] 25 mg PO Q6HR PRN 12/27/16 11/02/19 05/24/19 History Insulin Lispro [Humalog 100 See Protocol SQ AC 02/14/17 11/02/19 05/22/19 History UNITS/ML Kwikpen] Donepezil HCl 10 mg PO QHS 11/10/18 11/02/19 05/25/19 History Losartan Potassium 100 mg PO QHS 11/10/18 11/02/19 05/25/19 History Metoprolol Tartrate 75 mg PO BID 11/10/18 11/02/19 05/25/19 History Sevelamer Carbonate 2,400 mg PO TIDWM 11/10/18 11/02/19 05/25/19 History Epoetin Darvin 10,000 Unit [Procrit] 10,000 unit IJ PRN 07/11/19 11/02/19 Unknown History ALBUTEROL NEB's [Proventil 0.083% 2.5 mg IH Q4HRT PRN #30 nebu 11/07/19 Unknown Rx NEBS] Acetaminophen [Acetaminophen TAB] 1 tab PO Q4HR PRN #15 11/07/19 11/02/19 Un known Rx Ascorbic Acid [Vitamin C] 500 mg PO BID #60 tablet 11/07/19 Unknown Rx Aspirin [Aspirin BABY CHEW TAB] 81 mg PO QDAY #30 tab.chew 11/07/19 Unknown Rx AtorvaSTATin [Lipitor] 40 mg PO QHS #30 tablet 11/07/19 Unknown Rx Cinacalcet [Sensipar] 30 mg PO QDAY #30 tablet 11/07/19 11/02/19 Unknown Rx Ferrous Sulfate [Feosol 325 MG tab] 325 mg PO BID #60 tablet 11/07/19 Unknown Rx Folic Acid [Folvite] 1 mg PO DAILY #30 tablet 11/07/19 Unknown Rx Insulin Glargine [Lantus VIAL] 20 units SUB-Q QHS units 11/07/19 Unknown Rx Pantoprazole [Protonix TAB] 40 mg PO QDAY #15 tablet 11/07/19 Unknown Rx Thiamine [Vitamin B-1] 100 mg PO DAILY #30 tablet 11/07/19 Unknown Rx amLODIPine 10 mg PO QHS #30 tab 11/07/19 11/02/19 05/25/19 Rx bisacodyL [Dulcolax tab] 10 mg PO QDAY PRN #30 tablet 11/07/19 Unknown Rx cloNIDine-TTS PATCH [Catapres-Tts 0.1 mg TD Tu #4 patch 11/07/19 11/02/19 Unknown Rx 0.1MG Patch] levETIRAcetam [Keppra TAB] 250 mg PO BID #30 tablet 11/07/19 11/02/19 05/25/19 Rx ED Physical Exam - General Limitations: Physical Limitation General appearance: alert, in no apparent distress - Head Head exam: Present: atraumatic, normocephalic - Eye Eye exam: Present: normal appearance, PERRL - ENT ENT exam: Present: mucous membranes moist - Neck Neck exam: Present: normal inspection - Respiratory Respiratory exam: Present: normal lung sounds bilaterally. Absent: respiratory distress - Cardiovascular Cardiovascular Exam: Present: regular rate, normal rhythm. Absent: systolic murmur, diastolic murmur, rubs, gallop - GI/Abdominal GI/Abdominal exam: Present: soft, normal bowel sounds. Absent: distended, tenderness - Rectal Rectal exam: Present: deferred - Extremities Exam Extremities exam: Present: other (Patient has a right AKA and left BKA) - Back Exam Back exam: Present: normal inspection - Neurological Exam Neurological exam: Present: alert, oriented X3, CN II-XII intact. Absent: motor sensory deficit - Psychiatric Psychiatric exam: Present: normal affect, normal mood - Skin Skin exam: Present: warm, dry, intact, normal color. Absent: rash ED Course Vital Signs 06/12/20 19:36 Temperature 98.4 F Pulse Rate 82 Respiratory 16 Rate Blood Pressure 175/77 O2 Sat by Pulse 100 Oximetry ED Medical Decision Making - Radiology Data Radiology results: report reviewed - Medical Decision Making Discussed results with pt Critical care attestation.: If time is entered above; I have spent that time in minutes in the direct care of this critically ill patient, excluding procedure time. ED Disposition Clinical Impression: Closed head injury, Fall Disposition: DC-01 TO HOME OR SELFCARE Is pt being admited?: No Does the pt Need Aspirin: No Condition: Stable Instructions: Fall Prevention (ED), Fall Prevention for Older Adults (ED), Minor Head Injury (ED) Additional Instructions: return if worse Referrals: PRIMARY CARE, [Primary Care Provider] - 3-5 Days GISELE WELSH MD [Staff Physician] - 3-5 Days Time of Disposition: 22:44
--- NOTE | 2020-06-12 21:27 | XRay Report ---
PELVIS 1 VIEW(S) INDICATION / CLINICAL INFORMATION: fall COMPARISON: 03/05/2020. FINDINGS: BONES / JOINT(S): No acute fracture or subluxation. Mild to moderate bilateral femoroacetabular joint degenerative arthrosis. SOFT TISSUES: No significant abnormality. ADDITIONAL FINDINGS: Extensive vascular calcifications are again seen throughout the pelvis and upper legs. IMPRESSION: No acute osseous abnormality. No significant change from 03/05/2020. Signer Name: Adriel Cabrera MD Signed: 06/12/2020 9:23 PM Workstation Name: [id number]
--- NOTE | 2020-06-12 22:37 | Cat Scan Report ---
CT HEAD WITHOUT CONTRAST INDICATION / CLINICAL INFORMATION: closed head injury. TECHNIQUE: All CT scans at this location are performed using CT dose reduction for ALARA by means of automated e xposure control. COMPARISON: None available. FINDINGS: HEMORRHAGE: None. EXTRA-AXIAL SPACES: There is advanced for age global cerebral atrophy, unchanged. VENTRICULAR SYSTEM: Prominence of the ventricular system for age is also unchanged. CEREBRAL PARENCHYMA: Extensive white matter chronic microangiopathic disease is stable. Tiny bilatera l basal ganglia hypodensities are also unchanged. MIDLINE SHIFT OR HERNIATION: None. CEREBELLUM / BRAINSTEM: No significant abnormality. ORBITS: Normal as visualized. SOFT TISSUES of HEAD: No significant abnormality. CALVARIUM: No significant abnormality. PARANASAL SINUSES / MASTOID AIR CELLS: Normal as visualized. ADDITIONAL FINDINGS: None. IMPRESSION: 1. No acute intracranial abnormality. No significant change from 04/16/2020. Signer Name: Adriel Cabrera MD Signed: 06/12/2020 10:33 PM Workstation Name: [id number]
[2020-06-12 22:59] VITALS: BP 160/83
== END 2020-06-12 23:49 | disposition home or self-care (01) ==
LOC: ED 19:29
DX: S09.90XA Unspecified injury of head, initial encounter (principal); I10 Essential (primary) hypertension; E11.9 Type 2 diabetes mellitus without complications; K21.9 Gastro-esophageal reflux disease without esophagitis; R56.9 Unspecified convulsions; J45.909 Unspecified asthma, uncomplicated; F17.200 Nicotine dependence, unspecified, uncomplicated; Z98.890 Other specified postprocedural states; Z89.512 Acquired absence of left leg below knee; Z79.4 Long term (current) use of insulin; Z79.899 Other long term (current) drug therapy; Z88.0 Allergy status to penicillin; W06.XXXA Fall from bed, initial encounter; Y93.89 Activity, other specified; Y92.89 Other specified places as the place of occurrence of the external cause; Y99.8 Other external cause status
CPT/HCPCS: 70450; 72170

== ENCOUNTER 2020-09-04 17:31 | Inpatient (IN) | payer MEDICAID ==
--- NOTE | 2020-09-04 19:29 | Emergency Department Report ---
ED General Adult HPI - General Chief complaint: Medical Clearance Stated complaint: +COVID/EMERGENCY DAILYSIS Time Seen by Provider: 09/04/20 18:51 Source: EMS Mode of arrival: Ambulatory Limitations: No Limitations, Physical Limitation - History of Present Illness Initial comments: 60-year-old male with history of dementia, ESRD, diabetes, seizure disorder, peripheral vascular disease, hypertension, presents to ED ulcers. Patient tested positive for COVID-19 on 09/02/2020. Patient is normally on a dialysis schedule. Patient sent to our ED for dialysis. custodial states his dialysis center will not dialyze due to his Covid diagnosis. Patient last dialyzed on 08/29/2020, 6 days ago. He has missed 1 dialysis session on yesterday. Patient denies any cough, shortness of breath, nausea, vomiting. -: days(s) (6) Severity scale (0 -10): 2 Improves with: none Worsens with: none Associated Symptoms: denies other symptoms. denies: chest pain, cough, fever/chills, nausea/vomiting, shortness of breath Treatments Prior to Arrival: none - Related Data Home Medications Medication Instructions Recorded Confirmed Last Taken diphenhydrAMINE [Benadryl CAP] 25 mg PO Q6HR PRN 12/27/16 11/02/19 05/24/19 Insulin Lispro [Humalog 100 See Protocol SQ AC 02/14/17 11/02/19 05/22/19 UNITS/ML Kwikpen] Donepezil HCl 10 mg PO QHS 11/10/18 11/02/19 05/25/19 Losartan Potassium 100 mg PO QHS 11/10/18 11/02/19 05/25/19 Metoprolol Tartrate 75 mg PO BID 11/10/18 11/02/19 05/25/19 Sevelamer Carbonate 2,400 mg PO TIDWM 11/10/18 11/02/19 05/25/19 Epoetin Darvin 10,000 Unit [Procrit] 10,000 unit IJ PRN 07/11/19 11/02/19 Unknown Previous Rx's Medication Instructions Recorded Last Taken Type ALBUTEROL NEB's [Proventil 0.083% 2.5 mg IH Q4HRT PRN #30 nebu 11/07/19 Unknown Rx NEBS] Acetaminophen [Acetaminophen TAB] 1 tab PO Q4HR PRN #15 11/07/19 Unknown Rx Ascorbic Acid [Vitamin C] 500 mg PO BID #60 tablet 11/07/19 Unknown Rx Aspirin [Aspirin BABY CHEW TAB] 81 mg PO QDAY #30 tab.chew 11/07/19 Unknown Rx AtorvaSTATin [Lipitor] 40 mg PO QHS #30 tablet 11/07/19 Unknown Rx Cinacalcet [Sensipar] 30 mg PO QDAY #30 tablet 11/07/19 Unknown Rx Ferrous Sulfate [Feosol 325 MG tab] 325 mg PO BID #60 tablet 11/07/19 Unknown Rx Folic Acid [Folvite] 1 mg PO DAILY #30 tablet 11/07/19 Unknown Rx Insulin Glargine [Lantus VIAL] 20 units SUB-Q QHS units 11/07/19 Unknown Rx Pantoprazole [Protonix TAB] 40 mg PO QDAY #15 tablet 11/07/19 Unknown Rx Thiamine [Vitamin B-1] 100 mg PO DAILY #30 tablet 11/07/19 Unknown Rx amLODIPine 10 mg PO QHS #30 tab 11/07/19 05/25/19 Rx bisacodyL [Dulcolax tab] 10 mg PO QDAY PRN #30 tablet 11/07/19 Unknown Rx cloNIDine-TTS PATCH [Catapres-Tts 0.1 mg TD Tu #4 patch 11/07/19 Unknown Rx 0.1MG Patch] levETIRAcetam [Keppra TAB] 250 mg PO BID #30 tablet 11/07/19 05/25/19 Rx Allergies Allergy/AdvReac Type Severity Reaction Status Date / Time Penicillins Allergy Unknown Verified 07/11/19 17:31 ED Review of Systems ROS: Stated complaint: +COVID/EMERGENCY DAILYSIS Other details as noted in HPI Comment: All other systems reviewed and negative Constitutional: denies: fever Respiratory: denies: cough, shortness of breath Gastrointestinal: denies: vomiting, diarrhea ED Past Medical Hx - Past Medical History Previous Medical History?: Yes Hx Hypertension: Yes Hx CVA: No Hx Heart Attack/AMI: No Hx Congestive Heart Failure: No Hx Diabetes: Yes Hx Deep Vein Thrombosis: No Hx GERD: Yes Hx Liver Disease: No Hx Renal Disease: Yes Hx Headaches / Migraines: No Hx Seizures: Yes (on meds) Hx Kidney Stones: Yes Hx Asthma: Yes Hx COPD: No Hx Dementia: Yes Hx HIV: No Additional medical history: Anemia - Surgical History Past Surgical History?: Yes Additional Surgical History: Left BKA, 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] - Social History Smoking Status: Never Smoker Substance Use Type: None - Medications Home Medications: Home Medications Medication Instructions Recorded Confirmed Last Taken Type diphenhydrAMINE [Benadryl CAP] 25 mg PO Q6HR PRN 12/27/16 11/02/19 05/24/19 History Insulin Lispro [Humalog 100 See Protocol SQ AC 02/14/17 11/02/19 05/22/19 History UNITS/ML Kwikpen] Donepezil HCl 10 mg PO QHS 11/10/18 11/02/19 05/25/19 History Losartan Potassium 100 mg PO QHS 11/10/18 11/02/19 05/25/19 History Metoprolol Tartrate 75 mg PO BID 11/10/18 11/02/19 05/25/19 History Sevelamer Carbonate 2,400 mg PO TIDWM 11/10/18 11/02/19 05/25/19 History Epoetin Darvin 10,000 Unit [Procrit] 10,000 unit IJ PRN 07/11/19 11/02/19 Unknown History ALBUTEROL NEB's [Proventil 0.083% 2.5 mg IH Q4HRT PRN #30 nebu 11/07/19 Unknown Rx NEBS] Acetaminophen [Acetaminophen TAB] 1 tab PO Q4HR PRN #15 11/07/19 11/02/19 Unknown Rx Ascorbic Acid [Vitamin C] 500 mg PO BID #60 tablet 11/07/19 Unknown Rx Aspirin [Aspirin BABY CHEW TAB] 81 mg PO QDAY #30 tab.chew 11/07/19 Unknown Rx AtorvaSTATin [Lipitor] 40 mg PO QHS #30 tablet 11/07/19 Unknown Rx Cinacalcet [Sensipar] 30 mg PO QDAY #30 tablet 11/07/19 11/02/19 Unknown Rx Ferrous Sulfate [Feosol 325 MG tab] 325 mg PO BID #60 tablet 11/07/19 Unknown Rx Folic Acid [Folvite] 1 mg PO DAILY #30 tablet 11/07/19 Unknown Rx Insulin Glargine [Lantus VIAL] 20 units SUB-Q QHS units 11/07/19 Unknown Rx Pantoprazole [Protonix TAB] 40 mg PO QDAY #15 tablet 11/07/19 Unknown Rx Thiamine [Vitamin B-1] 100 mg PO DAILY #30 tablet 11/07/19 Unknown Rx amLODIPine 10 mg PO QHS #30 tab 11/07/19 11/02/19 05/25/19 Rx bisacodyL [Dulcolax tab] 10 mg PO QDAY PRN #30 tablet 11/07/19 Unknown Rx cloNIDine-TTS PATCH [Catapres-Tts 0.1 mg TD Tu #4 patch 11/07/19 11/02/19 Unknown Rx 0.1MG Patch] levETIRAcetam [Keppra TAB] 250 mg PO BID #30 tablet 11/07/19 11/02/19 05/25/19 Rx ED Physical Exam - General Limitations: No Limitations, Physical Limitation General appearance: alert, in no apparent distress - Head Head exam: Present: atraumatic, normocephalic - Eye Eye exam: Present: normal appearance, EOMI - ENT ENT exam: Present: mucous membranes moist - Neck Neck exam: Present: normal inspection - Respiratory Respiratory exam: Present: normal lung sounds bilaterally. Absent: respiratory distress - Cardiovascular Cardiovascular Exam: Present: regular rate, normal rhythm - GI/Abdominal GI/Abdominal exam: Present: soft. Absent: distended, tenderness - Neurological Exam Neurological exam: Present: alert. Absent: oriented X3 - Psychiatric Psychiatric exam: Present: normal affect, normal mood ED Course Vital Signs 09/04/20 09/04/20 09/04/20 18:24 18:39 18:45 Temperature 98.4 F Pulse Rate 93 H 77 75 Respiratory 18 13 12 Rate Blood Pressure 93/58 93/58 Blood Pressure [Right] O2 Sat by Pulse 100 98 100 Oximetry 09/04/20 09/04/20 09/04/20 18:46 19:01 19:15 Temperature 98.7 F Pulse Rate 75 76 75 Respiratory 13 13 16 Rate Blood Pressure 93/58 50/30 Blood Pressure 93/58 [Right] O2 Sat by Pulse 99 100 100 Oximetry 09/04/20 09/04/20 09/04/20 19:31 19:36 19:45 Temperature Pulse Rate 76 76 Respiratory 15 15 15 Rate Blood Pressure 234/115 234/115 Blood Pressure [Right] O2 Sat by Pulse 99 100 98 Oximetry 09/04/20 09/04/20 09/04/20 20:00 20:15 20:31 Temperature Pulse Rate 75 92 H 92 H Respiratory 14 12 10 L Rate Blood Pressure 238/114 238/114 238/114 Blood Pressure [Right] O2 Sat by Pulse 99 98 100 Oximetry 09/04/20 09/04/20 20:45 21:06 Temperature Pulse Rate 92 H 92 H Respiratory 15 Rate Blood Pressure 238/114 248/115 Blood Pressure [Right] O2 Sat by Pulse 100 Oximetry - Consultations Consultation #1: 09/04/20 21:[address] Marie, cattle examiner. Will consult on patient. Will dialyze in the morning. Since potassium only 5.2, states patient only needs Kayexalate 45 g. ED Medical Decision Making - Lab Data Result diagrams: 09/04/20 20:14 09/04/20 20:14 - EKG Data -: EKG Interpreted by Dc EKG shows normal: sinus rhythm, axis, intervals, QRS complexes Rate: normal - EKG Data Interpretation: nonspecific ST-T wave jero, LVH, other (LAFB) - Radiology Data Radiology results: report reviewed, image reviewed - Medical Decision Making 60-year-old male, history of ESRD, presents to ED for dialysis. Patient unable to go to his regularly scheduled dialysis clinic secondary to recent COVID-19 diagnosis 2 days ago. Patient is hypertensive. Clonidine given. Chest x-ray is negative for any evidence of pulmonary edema or pneumonia. O2 sats are normal. Potassium is 5.2. Talent Development Analyst contacted, will dialyze in the morning. States to give Kayexalate. Patient will be admitted to hospitalist for furthe r management. Critical Care Time: Yes Critical care time in (mins) excluding proc time.: 35 Critical care attestation.: If time is entered above; I have spent that time in minutes in the direct care of this critically ill patient, excluding procedure time. Critical Care Time: 35 min ED Disposition Clinical Impression: ESRD needing dialysis, Hyperkalemia, COVID-19, Hypertensive urgency Disposition: OP ADMIT IP TO THIS HOSP Is pt being admited?: Yes Condition: Stable Referrals: PRIMARY CARE, [Primary Care Provider] - 3-5 Days Time of Disposition: 21:06
--- NOTE | 2020-09-04 20:05 | XRay Report ---
CHEST 1 VIEW 09/04/2020 6:47 PM INDICATION / CLINICAL INFORMATION: covid + missed dialysis. COMPARISON: 03/05/2020 FINDINGS: SUPPORT DEVICES: None. HEART / MEDIASTINUM: No significant abnormality. LUNGS / PLEURA: No significant pulmonary or pleural abnormality. No pneumothorax. ADDITIONAL FINDINGS: No significant additional findings. IMPRESSION: 1. No acute findings. Signer Name: Davin Scott MD Signed: 09/04/2020 8:00 PM Workstation Name: [id number]
[2020-09-04 20:27] LABS: Eosinophils # (Auto) 0.3 K/mm3 (0.0-0.4); Eosinophils % (Auto) 5.2 % (0.0-4.3); Hematocrit 31.2 % (35.5-45.6); Hemoglobin 9.7 gm/dl (11.8-15.2); Lymphocytes # (Auto) 0.9 K/mm3 (1.2-5.4); Lymphocytes % (Auto) 19.2 % (13.4-35.0); Mean Corpuscular HGB Conc 31 % (32-34); Mean Corpuscular Volume 90 fl (84-94); Monocytes # (Auto) 0.5 K/mm3 (0.0-0.8); Monocytes % (Auto) 10.2 % (0.0-7.3); Platelet Count 227 K/mm3 (140-440); Red Blood Count 3.45 M/mm3 (3.65-5.03); Red Cell Distribution Width 15.7 % (13.2-15.2)
[2020-09-04 20:42] LABS: Calcium 9.7 mg/dL (8.4-10.2)
[2020-09-04] MEDS ORDERED: cloNIDine 0.2 MG TAB PO ONE (20:57)
[2020-09-04] MEDS ORDERED: SODIUM POLYSTYRENE 15 GM/60 ML ORAL LIQD PO ONE (20:59)
[2020-09-05] MEDS ORDERED: ACETAMINOPHEN 325 MG TAB PO PRN (00:06)
[2020-09-05] MEDS ORDERED: MORPHINE 2 MG/1 ML INJ IV PRN (00:06)
[2020-09-05] MEDS ORDERED: ONDANSETRON 4 MG/2 ML INJ IV PRN (00:06)
[2020-09-05] MEDS ORDERED: MAGNESIUM HYDROXIDE (MOM) ORAL LIQD UDC PO PRN (00:06)
[2020-09-05] MEDS ORDERED: DEXTROSE 50% IN WATER (25GM) 50 ML SYRINGE IV PRN (00:06)
--- NOTE | 2020-09-05 00:22 | History and Physical Report ---
History of Present Illness Date of examination: 09/04/20 Date of admission: 09/04/20 22:21 Chief complaint: End-stage renal disease needing dialysis History of present illness: 60-year-old male with known history of dementia, diabetes mellitus, peripheral vascular disease, end-stage renal disease on dialysis-on [id number]. He tested positive for COVID-19 few days ago and therefore was sent to the emergency room to be dialyzed as the dialysis center would not see him due to the Covid positive status. Last dialysis was 08/29/2020. Patient denies any fever or chills, no chest pain or shortness of breath, no nausea vomiting, no diarrhea. He is not a very good historian but was able to respond to questions appropriately. Work-up in the emergency room today significant finding was that of hyperkalemia of 5.2. Kayexalate was recommended. Aviculturist Dr. Marie was consulted by the ER physician and patient will be scheduled for dialysis. It is unclear whether patient has received any treatment for his positive COVID- 19 status. Past History Past Medical History: anemia, GERD, hypertension, PVD, seizures, other (Kidney stones, dementia,Right AV shunt.) Past Surgical History: Other (Left BKA,Right AKA) Social history: no significant social history Family history: no significant family history Medications and Allergies Allergies Allergy/AdvReac Type Severity Reaction Status Date / Time Penicillins Allergy Unknown Verified 07/11/19 17:31 Home Medications Medication Instructions Recorded Confirmed Last Taken Type diphenhydrAMINE [Benadryl CAP] 25 mg PO Q6HR PRN 12/27/16 09/04/20 05/24/19 History Insulin Lispro [Humalog 100 See Protocol SQ AC 02/14/17 09/04/20 05/22/19 History UNITS/ML Kwikpen] Donepezil HCl 10 mg PO QHS 11/10/18 09/04/20 05/25/19 History Losartan Potassium 100 mg PO QHS 11/10/18 09/04/20 05/25/19 History Metoprolol Tartrate 75 mg PO BID 11/10/18 09/04/20 05/25/19 History Sevelamer Carbonate 2,400 mg PO TIDWM 11/10/18 09/04/20 05/25/19 History Epoetin Darvin 10,000 Unit [Procrit] 10,000 unit IJ PRN 07/11/19 09/04/20 Unknown History ALBUTEROL NEB's [Proventil 0.083% 2.5 mg IH Q4HRT PRN #30 nebu 11/07/19 09/04/20 Unknown Rx NEBS] Acetaminophen [Acetaminophen TAB] 1 tab PO Q4HR PRN #15 11/07/19 09/04/20 Unknown Rx Ascorbic Acid [Vitamin C] 500 mg PO BID #60 tablet 11/07/19 09/04/20 Unknown Rx Aspirin [Aspirin BABY CHEW TAB] 81 mg PO QDAY #30 tab.chew 11/07/19 09/04/20 Unknown Rx AtorvaSTATin [Lipitor] 40 mg PO QHS #30 tablet 11/07/19 09/04/20 Unknown Rx Cinacalcet [Sensipar] 30 mg PO QDAY #30 tablet 11/07/19 09/04/20 Unknown Rx Ferrous Sulfate [Feosol 325 MG tab] 325 mg PO BID #60 tablet 11/07/19 09/04/20 Unknown Rx Folic Acid [Folvite] 1 mg PO DAILY #30 tablet 11/07/19 09/04/20 Unknown Rx Insulin Glargine [Lantus VIAL] 20 units SUB-Q QHS units 11/07/19 09/04/20 Unknown Rx Pantoprazole [Protonix TAB] 40 mg PO QDAY #15 tablet 11/07/19 09/04/20 Unknown Rx Thiamine [Vitamin B-1] 100 mg PO DAILY #30 tablet 11/07/19 09/04/20 Unknown Rx amLODIPine 10 mg PO QHS #30 tab 11/07/19 09/04/20 05/25/19 Rx bisacodyL [Dulcolax tab] 10 mg PO QDAY PRN #30 tablet 11/07/19 09/04/20 Unknown Rx cloNIDine-TTS PATCH [Catapres-Tts 0.1 mg TD Tu #4 patch 11/07/19 09/04/20 Unknown Rx 0.1MG Patch] levETIRAcetam [Keppra TAB] 250 mg PO BID #30 tablet 11/07/19 09/04/20 05/25/19 Rx Active Meds: Active Medications Acetaminophen (Acetaminophen 325 Mg Tab) 650 mg PO Q4H PRN PRN Reason: Pain MILD(1-3)/Fever >100.5/DINERO Dextrose (Dextrose 50% In Water (25gm) 50 Ml Syringe) 50 ml IV Q30MIN PRN; Protocol PRN Reason: Hypoglycemia Dextrose (Dextrose 50% In Water (25gm) 50 Ml Syringe) 50 ml IV Q30MIN PRN; Protocol PRN Reason: Hypoglycemia Heparin Sodium (Porcine) (Heparin 5,000 Unit/1 Ml Vial) 5,000 unit SUB-Q Q8HR LUZ Insulin Human Lispro (Insulin Lispro 100 Unit/Ml Vial 3 Ml) 0 unit SUB-Q ACHS [facility]; Protocol Insulin Human Lispro (Insulin Lispro 100 Unit/Ml Vial 3 Ml) 0 unit SUB-Q ACHS [facility]; Protocol Magnesium Hydroxide (Magnesium Hydroxide (Mom) Oral Liqd Udc) 30 ml PO Q4H PRN PRN Reason: Constipation Morphine Sulfate (Morphine 2 Mg/1 Ml Inj) 2 mg IV Q4H PRN PRN Reason: Pain, Moderate (4-6) Ondansetron HCl (Ondansetron 4 Mg/2 Ml Inj) 4 mg IV Q8H PRN PRN Reason: Nausea And Vomiting Sodium Chloride (Sodium Chloride 0.9% 10 Ml Flush Syringe) 10 ml IV BID LUZ Sodium Chloride (Sodium Chloride 0.9% 10 Ml Flush Syringe) 10 ml IV PRN PRN PRN Reason: LINE FLUSH Review of Systems Constitutional: no fever, no chills Ears, nose, mouth and throat: no nasal congestion, no sore throat Cardiovascular: no chest pain, no palpitations Respiratory: no cough, no shortness of breath Gastrointestinal: no abdominal pain, no nausea, no vomiting, no diarrhea, no coffee ground emesis, no BRBPR Genitourinary Male: no dysuria, no hematuria, no flank pain Musculoskeletal: no neck pain, no low back pain Integumentary: no rash, no pruritis Neurological: no headaches, no confusion Psychiatric: no anxiety, no depression Exam - Constitutional Vitals: Temp Pulse Resp BP Pulse Ox 98.7 F 97 H 17 93/62 99 09/04/20 18:46 09/04/20 23:45 09/04/20 23:45 09/04/20 23:45 09/04/20 22:15 General appearance: Present: no acute distress, well-nourished - EENT Eyes: Present: PERRL, EOM intact. Absent: scleral icterus ENT: hearing intact, clear oral mucosa, dentition normal - Neck Neck: Present: supple, normal ROM - Respiratory Respiratory effort: normal Respiratory: bilateral: CTA - Cardiovascular Rhythm: regular Heart Sounds: Present: S1 & S2. Absent: gallop, systolic murmur, diastolic murmur, rub - Extremities Extremities: no ischemia, pulses intact, pulses symmetrical, No edema, normal temperature, normal color, Full ROM Peripheral Pulses: abnormal (BKA, right AKA) - Abdominal General gastrointestinal: Present: soft, non-tender, non-distended, normal bowel sounds. Absent: mass - Integumentary Integumentary: Present: clear, warm, dry. Absent: rash - Musculoskeletal Musculoskeletal: strength equal bilaterally - Psychiatric Psychiatric: appropriate mood/affect, intact judgment & insight, memory intact, cooperative - Neurologic Neurologic: CNII-XII intact, no focal deficits, moves all extremities Results - Labs CBC & Chem 7: 09/04/20 20:14 09/05/20 05:03 Labs: Abnormal lab results 09/04/20 09/04/20 Range/Units 20:14 20:14 RBC 3.45 L (3.65-5.03) M/mm3 Hgb 9.7 L (11.8-15.2) gm/dl Hct 31.2 L (35.5-45.6) % MCHC 31 L (32-34) % RDW 15.7 H (13.2-15.2) % [place] % (Auto) 10.2 H (0.0-7.3) % Eos % (Auto) 5.2 H (0.0-4.3) % Lymph # (Auto) 0.9 L (1.2-5.4) K/mm3 Potassium 5.2 H (3.6-5.0) mmol/L BUN 85 H (9-20) mg/dL Creatinine 9.1 H (0.8-1.3) mg/dL Glucose 110 H (75-100) mg/dL Assessment and Plan - Patient Problems (1) ESRD (end stage renal disease) on dialysis Current Visit: No Status: Acute Plan to address problem: Aviculturist consulted for dialysis. (2) Hyperkalemia Current Visit: Yes Status: Acute Plan to address problem: Patient has had Kayexalate. Will monitor potassium level. (3) Dementia Current Visit: No Status: Chronic Plan to address problem: We will resume routine home medications. (4) Diabetes mellitus Current Visit: No Status: Chronic Qualifiers: Diabetes mellitus type: type 2 Plan to address problem: We will monitor Accu-Cheks. (5) COVID-19 Current Visit: Yes Status: Acute Plan to address problem: Patient was diagnosed with COVID-19 about [address] consult to infectious disease for evaluation. (6) DVT prophylaxis Current Visit: No Status: Acute Plan to address problem: Patient placed on subcutaneous heparin. (7) Full code status Current Visit: Yes Status: Acute
[2020-09-05 06:35] LABS: Calcium 9.4 mg/dL (8.4-10.2)
[2020-09-05] MEDS: HEPARIN 5,000 UNIT/1 ML VIAL SUB-Q SCH ×3 (06:46→21:42)
[2020-09-05] MEDS ORDERED: INSULIN LISPRO 100 UNIT/ML VIAL 3 mL SUB-Q SCH (07:30)
[2020-09-05] MEDS: INSULIN LISPRO 100 UNIT/ML VIAL 3 mL SUB-Q SCH ×4 (08:21→21:59)
[2020-09-05] MEDS ORDERED: SODIUM CHLORIDE 0.9% 100 ML IV PRN (08:28)
[2020-09-05] MEDS ORDERED: HEPARIN 10,000 UNITS/10 ML VIAL IV PRN (08:28)
--- NOTE | 2020-09-05 13:47 | Consultation ---
History of Present Illness - Reason for Consult Consult date: 09/05/20 end stage renal disease, hyperkalemia - History of Present Illness The patient is a 60 YO male with history significant for DM type 2, HTN, Anemia, ESRD on hemodialysis (TTS), GERD, Seizure disorder, Cognitive decline and [facility] Resident who was sent to [facility] 09/04 for hemodialysis need. The patient was not able to provide any history due to confusion and there was no family members at the bedside. Patient tested positive for COVID-19 on 09/02/2020 and unable to do hemodialysis at his usual outpatient center. He was last dialyzed on 08/29/2020. Patient denies any symptoms at this time. Nephrology was consulted for treatment of ESRD. Past History Past Medical History: anemia, dialysis, ESRD, GERD, hypertension, PVD, seizures, other (Kidney stones, dementia,Right AV shunt.) Past Surgical History: Other (Left BKA,Right AKA) Social history: no significant social history Family history: no significant family history Medications and Allergies Allergies Allergy/AdvReac Type Severity Reaction Status Date / Time Penicillins Allergy Unknown Verified 07/11/19 17:31 Home Medications Medication Instructions Recorded Confirmed Last Taken Type diphenhydrAMINE [Benadryl CAP] 25 mg PO Q6HR PRN 12/27/16 09/04/20 05/24/19 History Insulin Lispro [Humalog 100 See Protocol SQ AC 02/14/17 09/04/20 05/22/19 Hi story UNITS/ML Kwikpen] Donepezil HCl 10 mg PO QHS 11/10/18 09/04/20 05/25/19 History Losartan Potassium 100 mg PO QHS 11/10/18 09/04/20 05/25/19 History Metoprolol Tartrate 75 mg PO BID 11/10/18 09/04/20 05/25/19 History Sevelamer Carbonate 2,400 mg PO TIDWM 11/10/18 09/04/20 05/25/19 History Epoetin Darvin 10,000 Unit [Procrit] 10,000 unit IJ PRN 07/11/19 09/04/20 Unknown History ALBUTEROL NEB's [Proventil 0.083% 2.5 mg IH Q4HRT PRN #30 nebu 11/07/19 09/04/20 Unknown Rx NEBS] Acetaminophen [Acetaminophen TAB] 1 tab PO Q4HR PRN #15 11/07/19 09/04/20 Unknown Rx Ascorbic Acid [Vitamin C] 500 mg PO BID #60 tablet 11/07/19 09/04/20 Unknown Rx Aspirin [Aspirin BABY CHEW TAB] 81 mg PO QDAY #30 tab.chew 11/07/19 09/04/20 Unknown Rx AtorvaSTATin [Lipitor] 40 mg PO QHS #30 tablet 11/07/19 09/04/20 Unknown Rx Cinacalcet [Sensipar] 30 mg PO QDAY #30 tablet 11/07/19 09/04/20 Unknown Rx Ferrous Sulfate [Feosol 325 MG tab] 325 mg PO BID #60 tablet 11/07/19 09/04/20 Unknown Rx Folic Acid [Folvite] 1 mg PO DAILY #30 tablet 11/07/19 09/04/20 Unknown Rx Insulin Glargine [Lantus VIAL] 20 units SUB-Q QHS units 11/07/19 09/04/20 Unknown Rx Pantoprazole [Protonix TAB] 40 mg PO QDAY #15 tablet 11/07/19 09/04/20 Unknown Rx Thiamine [Vitamin B-1] 100 mg PO DAILY #30 tablet 11/07/19 09/04/20 Unknown Rx amLODIPine 10 mg PO QHS #30 tab 11/07/19 09/04/20 05/25/19 Rx bisacodyL [Dulcolax tab] 10 mg PO QDAY PRN #30 tablet 11/07/19 09/04/20 Unknown Rx cloNIDine-TTS PATCH [Catapres-Tts 0.1 mg TD Tu #4 patch 11/07/19 09/04/20 Unknown Rx 0.1MG Patch] levETIRAcetam [Keppra TAB] 250 mg PO BID #30 tablet 11/07/19 09/04/20 05/25/19 Rx Active Meds: Active Medications Acetaminophen (Acetaminophen 325 Mg Tab) 650 mg PO Q4H PRN PRN Reason: Pain MILD(1-3)/Fever >100.5/DINERO Dextrose (Dextrose 50% In Water (25gm) 50 Ml Syringe) 50 ml IV Q30MIN PRN; Protocol PRN Reason: Hypoglycemia Heparin Sodium (Porcine) (Heparin 5,000 Unit/1 Ml Vial) 5,000 unit SUB-Q Q8HR [facility] Last Admin: 09/05/20 06:46 Dose: 5,000 unit Documented by: Heparin Sodium (Porcine) (Heparin 10,000 Units/10 Ml Vial) 3,000 unit IV CORBY PRN PRN Reason: hemodialysis Sodium Chloride (Nacl 0.9%) 100 mls @ 999 mls/hr IV CORBY PRN PRN Reason: Hypotension Insulin Human Lispro (Insulin Lispro 100 Unit/Ml Vial 3 Ml) 0 unit SUB-Q ACHS [facility]; Protocol Last Admin: 09/05/20 08:21 Dose: Not Given Documented by: Magnesium Hydroxide (Magnesium Hydroxide (Mom) Oral Liqd Udc) 30 ml PO Q4H PRN PRN Reason: Constipation Morphine Sulfate (Morphine 2 Mg/1 Ml Inj) 2 mg IV Q4H PRN PRN Reason: Pain, Moderate (4-6) Ondansetron HCl (Ondansetron 4 Mg/2 Ml Inj) 4 mg IV Q8H PRN PRN Reason: Nausea And Vomiting Sodium Chloride (Sodium Chloride 0.9% 10 Ml Flush Syringe) 10 ml IV BID [facility] Last Admin: 09/05/20 12:46 Dose: Not Given Documented by: Sodium Chloride (Sodium Chloride 0.9% 10 Ml Flush Syringe) 10 ml IV PRN PRN PRN Reason: LINE FLUSH Review of Systems ROS unobtainable: due to mental status Exam - Vital Signs Vital signs: Vital Signs Temp Pulse Resp BP Pulse Ox 98.4 F 93 H 18 93/58 100 09/04/20 18:24 09/04/20 18:24 09/04/20 18:24 09/04/20 18:24 09/04/20 18:24 Results - Lab Results 09/04/20 20:14 09/05/20 05:03 Most recent lab results Calcium 9.4 mg/dL (8.4-10.2) 09/05/20 05:03 Assessment and Plan 1. ESRD: Patient is on maintenance hemodialysis three times a week, TTS schedule. Missed HD on 09/02 and 09/04. Hemodialysis: 09/05. 2. FEN: Hyperkalemia, HD today. Monitor. 3. Anemia: Epogen as needed. Monitor. 4. COVID infection: CXR normal. No hypoxia. ID consulted. 5. PVD: S/p b/l LE amputation. 6. Hyperparathyroidism: Cinacalcet. 7. DM type 2. 8. Seizure disorder. Subjective: Patient seen and examined at the bedside. Examination: General appearance: well-developed, appears stated age, no distress HEENT: ATNC, PERRL Neck: neck supple, trachea midline Respiratory: Clear to Auscultation Heart: regular, S1S2, no murmur Abdomen: soft, normoactive bowel sounds, not tender, not distended Integumentary: no obvious rash Neurologic: alert, confusion noted, oriented to self, moving extremities Ext: no edema, R AKA, L BKA Hemodialysis access: R FA AVF
--- NOTE | 2020-09-05 14:29 | Consultation ---
History of Present Illness - Reason for Consult Consult date: 09/05/20 COVID-19 Requesting physician: LETY OBANDO - History of Present Illness The patient is a 60-year-old male with diabetes, peripheral vascular disease, ESRD on dialysis, dementia was recently diagnosed with COVID-19 and as a result it seems like he missed dialysis. He came into the emergency room due to hyperkalemia and need for dialysis. He is currently afebrile and is on room air. Labs show normal WBC, potassium was 5.2, creatinine 9.9. Review of Systems: reviewed in the chart, unable to obtain, minimize risk of transmission Past History Past Medical History: anemia, dialysis, ESRD, GERD, hypertension, PVD, seizures, other (Kidney stones, dementia,Right AV shunt.) Past Surgical History: Other (Left BKA,Right AKA) Social history: no significant social history Family history: no significant family history Medications and Allergies Allergies Allergy/AdvReac Type Severity Reaction Status Date / Time Penicillins Allergy Unknown Verified 07/11/19 17:31 Home Medications Medication Instructions Recorded Confirmed Last Taken Type diphenhydrAMINE [Benadryl CAP] 25 mg PO Q6HR PRN 12/27/16 09/04/20 05/24/19 History Insulin Lispro [Humalog 100 See Protocol SQ AC 02/14/17 09/04/20 05/22/19 History UNITS/ML Kwikpen] Donepezil HCl 10 mg PO QHS 11/10/18 09/04/20 05/25/19 History Losartan Potassium 100 mg PO QHS 11/10/18 09/04/20 05/25/19 History Metoprolol Tartrate 75 mg PO BID 11/10/18 09/04/20 05/25/19 History Sevelamer Carbonate 2,400 mg PO TIDWM 11/10/18 09/04/20 05/25/19 History Epoetin Darvin 10,000 Unit [Procrit] 10,000 unit IJ PRN 07/11/19 09/04/20 Unknown History ALBUTEROL NEB's [Proventil 0.083% 2.5 mg IH Q4HRT PRN #30 nebu 11/07/19 09/04/20 Unknown Rx NEBS] Acetaminophen [Acetaminophen TAB] 1 tab PO Q4HR PRN #15 11/07/19 09/04/20 Unknown Rx Ascorbic Acid [Vitamin C] 500 mg PO BID #60 tablet 11/07/19 09/04/20 Unknown Rx Aspirin [Aspirin BABY CHEW TAB] 81 mg PO QDAY #30 tab.chew 11/07/19 09/04/20 Unknown Rx AtorvaSTATin [Lipitor] 40 mg PO QHS #30 tablet 11/07/19 09/04/20 Unknown Rx Cinacalcet [Sensipar] 30 mg PO QDAY #30 tablet 11/07/19 09/04/20 Unknown Rx Ferrous Sulfate [Feosol 325 MG tab] 325 mg PO BID #60 tablet 11/07/19 09/04/20 Unknown Rx Folic Acid [Folvite] 1 mg PO DAILY #30 tablet 11/07/19 09/04/20 Unknown Rx Insulin Glargine [Lantus VIAL] 20 units SUB-Q QHS units 11/07/19 09/04/20 Unknown Rx Pantoprazole [Protonix TAB] 40 mg PO QDAY #15 tablet 11/07/19 09/04/20 Unknown Rx Thiamine [Vitamin B-1] 100 mg PO DAILY #30 tablet 11/07/19 09/04/20 Unknown Rx amLODIPine 10 mg PO QHS #30 tab 11/07/19 09/04/20 05/25/19 Rx bisacodyL [Dulcolax tab] 10 mg PO QDAY PRN #30 tablet 11/07/19 09/04/20 Unknown Rx cloNIDine-TTS PATCH [Catapres-Tts 0.1 mg TD Tu #4 patch 11/07/19 09/04/20 Unknown Rx 0.1MG Patch] levETIRAcetam [Keppra TAB] 250 mg PO BID #30 tablet 11/07/19 09/04/20 05/25/19 Rx Active Meds: Active Medications Acetaminophen (Acetaminophen 325 Mg Tab) 650 mg PO Q4H PRN PRN Reason: Pain MILD(1-3)/Fever >100.5/DINERO Dextrose (Dextrose 50% In Water (25gm) 50 Ml Syringe) 50 ml IV Q30MIN PRN; Protocol PRN Reason: Hypoglycemia Heparin Sodium (Porcine) (Heparin 5,000 Unit/1 Ml Vial) 5,000 unit SUB-Q Q8HR [facility] Last Admin: 09/05/20 06:46 Dose: 5,000 unit Documented by: Heparin Sodium (Porcine) (Heparin 10,000 Units/10 Ml Vial) 3,000 unit IV CORBY PRN PRN Reason: hemodialysis Sodium Chloride (Nacl 0.9%) 100 mls @ 999 mls/hr IV CORBY PRN PRN Reason: Hypotension Insulin Human Lispro (Insulin Lispro 100 Unit/Ml Vial 3 Ml) 0 unit SUB-Q ACHS [facility]; Protocol Last Admin: 09/05/20 08:21 Dose: Not Given Documented by: Magnesium Hydroxide (Magnesium Hydroxide (Mom) Oral Liqd Udc) 30 ml PO Q4H PRN PRN Reason: Constipation Morphine Sulfate (Morphine 2 Mg/1 Ml Inj) 2 mg IV Q4H PRN PRN Reason: Pain, Moderate (4-6) Ondansetron HCl (Ondansetron 4 Mg/2 Ml Inj) 4 mg IV Q8H PRN PRN Reason: Nausea And Vomiting Sodium Chloride (Sodium Chloride 0.9% 10 Ml Flush Syringe) 10 ml IV BID [facility] Last Admin: 09/05/20 12:46 Dose: Not Given Documented by: Sodium Chloride (Sodium Chloride 0.9% 10 Ml Flush Syringe) 10 ml IV PRN PRN PRN Reason: LINE FLUSH Physical Examination - Physical Exam Narrative exam: Physical Exam (reviewed in chart to minimize risk of transmission) Constitutional: deferred Head, Ears, Nose: deferred Eyes: deferred Neck: deferred Oral: deferred Cardiovascular: deferred Respiratory: deferred GI: deferred Musculoskeletal: deferred Skin: deferred Hem/Lymphatic: deferred Psych: deferred Neurological: deferred - Constitutional Vitals: Vital Signs Temp Pulse Resp BP Pulse Ox 97.9 F 76 16 105/64 100 09/05/20 09:47 09/05/20 12:56 09/05/20 09:47 09/05/20 12:56 09/05/20 04:59 Temperature -Last 24 Hours Temperature 97.9 F Temperature 97.6 F Temperature 97.9 F Temperature 98.7 F Temperature 98.4 F Results - Labs CBC & Chem 7: 09/04/20 20:14 09/05/20 05:03 Labs: Abnormal lab results 09/04/20 09/04/20 09/05/20 Range/Units 20:14 20:14 05:03 RBC 3.45 L (3.65-5.03) M/mm3 Hgb 9.7 L (11.8-15.2) gm/dl Hct 31.2 L (35.5-45.6) % MCHC 31 L (32-34) % RDW 15.7 H (13.2-15.2) % [place] % (Auto) 10.2 H (0.0-7.3) % Eos % (Auto) 5.2 H (0.0-4.3) % Lymph # (Auto) 0.9 L (1.2-5.4) K/mm3 Potassium 5.2 H 5.1 H (3.6-5.0) mmol/L Carbon Dioxide 20 L (22-30) mmol/L BUN 85 H 88 H (9-20) mg/dL Creatinine 9.1 H 9.9 H (0.8-1.3) mg/dL Glucose 110 H 174 H (75-100) mg/dL POC Glucose (70-105) mg/dL 09/05/20 09/05/20 Range/Units 07:59 13:28 RBC (3.65-5.03) M/mm3 Hgb (11.8-15.2) gm/dl Hct (35.5-45.6) % MCHC (32-34) % RDW (13.2-15.2) % [place] % (Auto) (0.0-7.3) % Eos % (Auto) (0.0-4.3) % Lymph # (Auto) (1.2-5.4) K/mm3 Potassium (3.6-5.0) mmol/L Carbon Dioxide (22-30) mmol/L BUN (9-20) mg/dL Creatinine (0.8-1.3) mg/dL Glucose (75-100) mg/dL POC Glucose 136 H 139 H (70-105) mg/dL - Imaging and Cardiology Chest x-ray: report reviewed, image reviewed (no pneumonia) Assessment and Plan Cultures: SARS CoV2 PCR: Positive as outpatient A/P: 60-year-old male with diabetes, peripheral vascular disease, ESRD on dialysis, dementia was recently diagnosed with COVID-19 and as a result it seems like he missed dialysis: #COVID-19: Chest x-ray without pneumonia. Patient without fever or hypoxia. #ESRD on HD Recs: -Supportive care and monitor for hypoxia. For now, no need for steroids. Also, due to ESRD, he is not a candidate for remdesivir Will sign off. Please call if there is a change in clinical status. Jenny Alvarez MD, FACP [facility] ([facility] O: [phone] F: [phone]
[2020-09-05 14:46] LABS: Hepatitis B Surface Antigen Non-Reactive (Negative); Hepatitis C Virus Antibody Non-Reactive (NonReactive)
[2020-09-05 15:34] LABS: C-Reactive Protein 0.3 mg/dL (0.00-1.30)
--- NOTE | 2020-09-05 17:40 | Progress Note ---
Assessment and Plan -- ESRD (end stage renal disease) on dialysis Hardware Press Operator consulted for dialysis. -- Hyperkalemia Patient has had Kayexalate. Will monitor potassium level. -- Dementia continue routine home medications. --Diabetes mellitus type 2 We will monitor Accu-Cheks. resume home insulin dose -- Positive COVID-19 Patient was diagnosed with COVID-19 about 6 days ago. Discussed with ID - no additional treatment needed --Seizure disorder, cont keppra -- DVT prophylaxis Patient placed on subcutaneous heparin. -- Full code status 09/05: Patient is positive for COVID but asymptomatic, no additional treatment needed per ID. CM to arrange to outpt HD where COVID +ve patient could be accommodate. Planned to d/c back to SNF. Subjective Date of service: 09/05/20 Interval history: Patient seen and examined denies any SOB, resting on RA denies chest pain tolerating diet Objective - Constitutional Vitals: Vital Signs - 12hr 09/05/20 09/05/20 09/05/20 09:47 09:56 10:15 Temperature 97.9 F Pulse Rate 75 71 75 Respiratory 16 Rate Blood Pressure 165/88 182/98 139/75 O2 Sat by Pulse Oximetry 09/05/20 09/05/20 09/05/20 10:30 10:45 11:00 Temperature Pulse Rate 75 77 77 Respiratory Rate Blood Pressure 123/68 119/71 115/64 O2 Sat by Pulse Oximetry 09/05/20 09/05/20 09/05/20 11:15 11:30 11:45 Temperature Pulse Rate 78 83 82 Respiratory Rate Blood Pressure 100/50 89/50 94/60 O2 Sat by Pulse Oximetry 09/05/20 09/05/20 09/05/20 12:00 12:15 12:30 Temperature Pulse Rate 82 79 78 Respiratory Rate Blood Pressure 96/67 102/57 105/56 O2 Sat by Pulse Oximetry 09/05/20 09/05/20 09/05/20 12:45 12:56 13:10 Temperature 97.7 F Pulse Rate 85 76 78 Respiratory 16 Rate Blood Pressure 129/53 105/64 131/69 O2 Sat by Pulse Oximetry 09/05/20 16:34 Temperature 98.5 F Pulse Rate 81 Respiratory 16 Rate Blood Pressure 187/94 O2 Sat by Pulse 98 Oximetry General appearance: Present: no acute distress - EENT Eyes: PERRL, EOM intact ENT: hearing intact, clear oral mucosa Ears: bilateral: normal - Neck Neck: supple, normal ROM - Respiratory Respiratory effort: normal Respiratory: bilateral: CTA - Cardiovascular Rhythm: regular Heart Sounds: Present: S1 & S2. Absent: gallop, rub Extremities: pulses intact, No edema, normal color Extremity abnormal: other (Left BKA,Right AKA) - Gastrointestinal General gastrointestinal: Present: soft, non-tender, non-distended, normal bowel sounds - Integumentary Integumentary: clear, warm, dry - Musculoskeletal Musculoskeletal: generalized weakness - Neurologic Neurologic: moves all extremities - Psychiatric Psychiatric: appropriate mood/affect, cooperative - Labs CBC & Chem 7: 09/06/20 04:35 09/06/20 04:35 Labs: Abnormal lab results 09/04/20 09/04/20 09/05/20 Range/Units 20:14 20:14 05:03 RBC 3.45 L (3.65-5.03) M/mm3 Hgb 9.7 L (11.8-15.2) gm/dl Hct 31.2 L (35.5-45.6) % MCHC 31 L (32-34) % RDW 15.7 H (13.2-15.2) % [place] % (Auto) 10.2 H (0.0-7.3) % Eos % (Auto) 5.2 H (0.0-4.3) % Lymph # (Auto) 0.9 L (1.2-5.4) K/mm3 D-Dimer (0-234) ng/mlDDU Potassium 5.2 H 5.1 H (3.6-5.0) mmol/L Carbon Dioxide 20 L (22-30) mmol/L BUN 85 H 88 H (9-20) mg/dL Creatinine 9.1 H 9.9 H (0.8-1.3) mg/dL Glucose 110 H 174 H (75-100) mg/dL POC Glucose (70-105) mg/dL Ferritin (30.0-300.0) ng/mL 09/05/20 09/05/20 09/05/20 Range/Units 07:59 13:28 14:37 RBC (3.65-5.03) M/mm3 Hgb (11.8-15.2) gm/dl Hct (35.5-45.6) % MCHC (32-34) % RDW (13.2-15.2) % [place] % (Auto) (0.0-7.3) % Eos % (Auto) (0.0-4.3) % Lymph # (Auto) (1.2-5.4) K/mm3 D-Dimer 918.99 H (0-234) ng/mlDDU Potassium (3.6-5.0) mmol/L Carbon Dioxide (22-30) mmol/L BUN (9-20) mg/dL Creatinine (0.8-1.3) mg/dL Glucose (75-100) mg/dL POC Glucose 136 H 139 H (70-105) mg/dL Ferritin (30.0-300.0) ng/mL 09/05/20 Range/Units 14:37 RBC (3.65-5.03) M/mm3 Hgb (11.8-15.2) gm/dl Hct (35.5-45.6) % MCHC (32-34) % RDW (13.2-15.2) % [place] % (Auto) (0.0-7.3) % Eos % (Auto) (0.0-4.3) % Lymph # (Auto) (1.2-5.4) K/mm3 D-Dimer (0-234) ng/mlDDU Potassium (3.6-5.0) mmol/L Carbon Dioxide (22-30) mmol/L BUN (9-20) mg/dL Creatinine (0.8-1.3) mg/dL Glucose (75-100) mg/dL POC Glucose (70-105) mg/dL Ferritin 447.5 H (30.0-300.0) ng/mL
[2020-09-06 05:09] LABS: Basophils % (Auto) 0.6 % (0.0-1.8); Eosinophils # (Auto) 0.2 K/mm3 (0.0-0.4); Eosinophils % (Auto) 4.7 % (0.0-4.3); Hematocrit 30.3 % (35.5-45.6); Hemoglobin 9.7 gm/dl (11.8-15.2); Lymphocytes # (Auto) 1.1 K/mm3 (1.2-5.4); Lymphocytes % (Auto) 30.1 % (13.4-35.0); Mean Corpuscular HGB Conc 32 % (32-34); Mean Corpuscular Volume 89 fl (84-94); Monocytes # (Auto) 0.5 K/mm3 (0.0-0.8); Monocytes % (Auto) 14.2 % (0.0-7.3); Platelet Count 209 K/mm3 (140-440); Red Cell Distribution Width 15.5 % (13.2-15.2)
[2020-09-06 05:21] LABS: Calcium 9.6 mg/dL (8.4-10.2)
[2020-09-06 05:23] LABS: INR 1.15 (0.87-1.13)
[2020-09-06] MEDS: HEPARIN 5,000 UNIT/1 ML VIAL SUB-Q SCH ×2 (06:24→13:21)
[2020-09-06] MEDS: INSULIN LISPRO 100 UNIT/ML VIAL 3 mL SUB-Q SCH ×4 (08:30→22:18)
--- NOTE | 2020-09-06 12:49 | Progress Note ---
Assessment and Plan 1. ESRD: Patient is on maintenance hemodialysis three times a week, TTS schedule. Missed HD on 09/02 and 09/04. Hemodialysis: 09/05. Next HD 09/07. 2. FEN: Hyperkalemia, s/p HD. Monitor. 3. Anemia: Epogen as needed. Monitor. 4. COVID infection: CXR normal. No hypoxia. Seen by ID. 5. PVD: S/p b/l LE amputation. 6. Hyperparathyroidism: Cinacalcet. 7. DM type 2. 8. Seizure disorder. Subjective: Patient seen and examined at the bedside. Doing ok. Examination: General appearance: well-developed, appears stated age, no distress HEENT: ATNC, PERRL Neck: neck supple, trachea midline Respiratory: Clear to Auscultation Heart: regular, S1S2, no murmur Abdomen: soft, normoactive bowel sounds, not tender, not distended Integumentary: no obvious rash Neurologic: alert, confusion noted, oriented to self, moving extremities Ext: no edema, R AKA, L BKA Hemodialysis access: R FA AVF Subjective Date of service: 09/06/20 Objective - Vital Signs Vital signs: Vital Signs - 12hr 09/06/20 09/06/20 04:28 10:22 Temperature 98.7 F 98.1 F Pulse Rate 76 85 Respiratory 16 16 Rate Blood Pressure 138/72 128/71 O2 Sat by Pulse 99 99 Oximetry - Lab 09/06/20 04:35 09/06/20 04:35 Most recent lab results Calcium 9.6 mg/dL (8.4-10.2) 09/06/20 04:35 Medications & Allergies - Medications Allergies/Adverse Reactions: Allergies Penicillins Allergy (Verified 07/11/19 17:31) Unknown Home Medications: Home Medications Medication Instructions Recorded Confirmed Last Taken Type diphenhydrAMINE [Benadryl CAP] 25 mg PO Q6HR PRN 12/27/16 09/04/20 05/24/19 History Insulin Lispro [Humalog 100 See Protocol SQ AC 02/14/17 09/04/20 05/22/19 History UNITS/ML Kwikpen] Donepezil HCl 10 mg PO QHS 11/10/18 09/04/20 05/25/19 History Losartan Potassium 100 mg PO QHS 02/09/04/20 05/25/19 History Metoprolol Tartrate 75 mg PO BID 11/10/18 09/04/20 05/25/19 History Sevelamer Carbonate 2,400 mg PO TIDWM 11/10/18 09/04/20 05/25/19 History Epoetin Darvin 10,000 Unit [Procrit] 10,000 unit IJ PRN 07/11/19 09/04/20 Unknown History ALBUTEROL NEB's [Proventil 0.083% 2.5 mg IH Q4HRT PRN #30 nebu 11/07/19 09/04/20 Unknown Rx NEBS] Acetaminophen [Acetaminophen TAB] 1 tab PO Q4HR PRN #15 11/07/19 09/04/20 Unknown Rx Ascorbic Acid [Vitamin C] 500 mg PO BID #60 tablet 11/07/19 09/04/20 Unknown Rx Aspirin [Aspirin BABY CHEW TAB] 81 mg PO QDAY #30 tab.chew 11/07/19 09/04/20 Unknown Rx AtorvaSTATin [Lipitor] 40 mg PO QHS #30 tablet 11/07/19 09/04/20 Unknown Rx Cinacalcet [Sensipar] 30 mg PO QDAY #30 tablet 11/07/19 09/04/20 Unknown Rx Ferrous Sulfate [Feosol 325 MG tab] 325 mg PO BID #60 tablet 11/07/19 09/04/20 Unknown Rx Folic Acid [Folvite] 1 mg PO DAILY #30 tablet 11/07/19 09/04/20 Unknown Rx Insulin Glargine [Lantus VIAL] 20 units SUB-Q QHS units 11/07/19 09/04/20 Unknown Rx Pantoprazole [Protonix TAB] 40 mg PO QDAY #15 tablet 11/07/19 09/04/20 Unknown Rx Thiamine [Vitamin B-1] 100 mg PO DAILY #30 tablet 11/07/19 09/04/20 Unknown Rx amLODIPine 10 mg PO QHS #30 tab 11/07/19 09/04/20 05/25/19 Rx bisacodyL [Dulcolax tab] 10 mg PO QDAY PRN #30 tablet 11/07/19 09/04/20 Unknown Rx cloNIDine-TTS PATCH [Catapres-Tts 0.1 mg TD Tu #4 patch 11/07/19 09/04/20 Unknown Rx 0.1MG Patch] levETIRAcetam [Keppra TAB] 250 mg PO BID #30 tablet 11/07/19 09/04/20 05/25/19 Rx Active Medications: Generic Name Dose Route Start Last Admin Trade Name Freq PRN Reason Stop Dose Admin Acetaminophen 650 mg 09/05/20 00:06 Acetaminophen 325 Mg Tab PO Q4H PRN Pain MILD(1-3)/Fever >100.5/DINERO Dextrose 50 ml 09/05/20 00:06 Dextrose 50% In Water (25gm) 50 Ml Syringe IV Q30MIN PRN Hypoglycemia Protocol Heparin Sodium (Porcine) 5,000 unit 09/05/20 06:00 09/06/20 06:24 Heparin 5,000 Unit/1 Ml Vial SUB-Q 5,000 unit Q8HR LUZ Administration Heparin Sodium (Porcine) 3,000 unit 09/05/20 08:28 Heparin 10,000 Units/10 Ml Vial IV CORBY PRN hemodialysis Sodium Chloride 100 mls @ 999 mls/hr 09/05/20 08:28 Nacl 0.9% IV CORBY PRN Hypotension Insulin Human Lispro 0 unit 09/05/20 07:30 09/06/20 08:30 Insulin Lispro 100 Unit/Ml Vial 3 Ml SUB-Q Not Given ACHS LUZ Protocol Magnesium Hydroxide 30 ml 09/05/20 00:06 Magnesium Hydroxide (Mom) Oral Liqd Udc PO Q4H PRN Constipation Morphine Sulfate 2 mg 09/05/20 00:06 Morphine 2 Mg/1 Ml Inj IV Q4H PRN Pain, Moderate (4-6) Ondansetron HCl 4 mg 09/05/20 00:06 Ondansetron 4 Mg/2 Ml Inj IV Q8H PRN Nausea And Vomiting Sodium Chloride 10 ml 09/05/20 10:00 09/06/20 09:37 Sodium Chloride 0.9% 10 Ml Flush Syringe IV Not Given BID LUZ Sodium Chloride 10 ml 09/05/20 00:06 Sodium Chloride 0.9% 10 Ml Flush Syringe IV PRN PRN LINE FLUSH
[2020-09-06] MEDS: APIXABAN 2.5 MG TAB PO SCH (22:14)
[2020-09-06] MEDS ORDERED: ALBUTEROL 2.5 MG/3 ML NEBU IH PRN (22:19)
--- NOTE | 2020-09-06 22:34 | Progress Note ---
Assessment and Plan -- ESRD (end stage renal disease) on dialysis [facility] [employer] [employer] consulted for dialysis. -- Hyperkalemia Patient has had Kayexalate. Will monitor potassium level. -- Dementia continue routine home medications. --Diabetes mellitus type 2 We will monitor Accu-Cheks. resume home insulin dose -- Positive COVID-19 Patient was diagnosed with COVID-19 about 6 days ago. Discussed with ID - no additional treatment needed --Seizure disorder, cont keppra -- DVT prophylaxis Patient placed on subcutaneous heparin. -- Full code status 09/05: Patient is positive for COVID but asymptomatic, no additional treatment needed per ID. CM to arrange to outpt HD where COVID +ve patient could be accommodate. Planned to d/c back to SNF. 09/06: Patient waiting on SNF and HD set up. cont current care Subjective Date of service: 09/06/20 Interval history: Patient seen and examined denies any SOB, resting on RA denies chest pain tolerating diet Objective - Exam Narrative Exam: General appearance: Present: no acute distress - EENT Eyes: PERRL, EOM intact ENT: hearing intact, clear oral mucosa Ears: bilateral: normal - Neck Neck: supple, normal ROM - Respiratory Respiratory effort: normal Respiratory: bilateral: CTA - Cardiovascular Rhythm: regular Heart Sounds: Present: S1 & S2. Absent: gallop, rub Extremities: pulses intact, No edema, normal color Extremity abnormal: other (Left BKA,Right AKA) - Gastrointestinal General gastrointestinal: Present: soft, non-tender, non-distended, normal bowel sounds - Integumentary Integumentary: clear, warm, dry - Musculoskeletal Musculoskeletal: generalized weakness - Neurologic Neurologic: moves all extremities - Psychiatric Psychiatric: appropriate mood/affect, cooperative - Constitutional Vitals: Vital Signs - 12hr 09/06/20 14:12 Respiratory 18 Rate O2 Sat by Pulse 96 Oximetry - Labs CBC & Chem 7: 09/06/20 04:35 09/06/20 04:35 Labs: Abnormal lab results 09/06/20 09/06/20 09/06/20 Range/Units 04:35 04:35 04:35 WBC 3.5 L (4.5-11.0) K/mm3 RBC 3.40 L (3.65-5.03) M/mm3 Hgb 9.7 L (11.8-15.2) gm/dl Hct 30.3 L (35.5-45.6) % RDW 15.5 H (13.2-15.2) % [place] % (Auto) 14.2 H (0.0-7.3) % Eos % (Auto) 4.7 H (0.0-4.3) % Lymph # (Auto) 1.1 L (1.2-5.4) K/mm3 INR 1.15 H (0.87-1.13) Chloride 97.6 L (98-107) mmol/L BUN 47 H (9-20) mg/dL Creatinine 6.0 H (0.8-1.3) mg/dL Glucose 52 L (75-100) mg/dL POC Glucose (70-105) mg/dL 09/06/20 09/06/20 09/06/20 Range/Units 07:56 12:34 17:30 WBC (4.5-11.0) K/mm3 RBC (3.65-5.03) M/mm3 Hgb (11.8-15.2) gm/dl Hct (35.5-45.6) % RDW (13.2-15.2) % [place] % (Auto) (0.0-7.3) % Eos % (Auto) (0.0-4.3) % Lymph # (Auto) (1.2-5.4) K/mm3 INR (0.87-1.13) Chloride (98-107) mmol/L BUN (9-20) mg/dL Creatinine (0.8-1.3) mg/dL Glucose (75-100) mg/dL POC Glucose 53 L 218 H 247 H (70-105) mg/dL 09/06/20 Range/Units 21:41 WBC (4.5-11.0) K/mm3 RBC (3.65-5.03) M/mm3 Hgb (11.8-15.2) gm/dl Hct (35.5-45.6) % RDW (13.2-15.2) % [place] % (Auto) (0.0-7.3) % Eos % (Auto) (0.0-4.3) % Lymph # (Auto) (1.2-5.4) K/mm3 INR (0.87-1.13) Chloride (98-107) mmol/L BUN (9-20) mg/dL Creatinine (0.8-1.3) mg/dL Glucose (75-100) mg/dL POC Glucose 289 H (70-105) mg/dL
[2020-09-07] MEDS ORDERED: NON-FORMULARY EACH (Insulin Lispro [Humalog 100 Units/Ml Kwikpen] 100 UNIT/ML Insuln.Pen) SQ SCH (07:30)
[2020-09-07] MEDS: INSULIN LISPRO 100 UNIT/ML VIAL 3 mL SUB-Q SCH ×7 (07:30→21:41)
[2020-09-07] MEDS: SEVELAMER CARBONATE 800 MG TAB PO SCH ×3 (08:29→17:29)
[2020-09-07] MEDS: CINACALCET 30 MG TAB PO SCH (10:58)
[2020-09-07] MEDS: APIXABAN 2.5 MG TAB PO SCH ×2 (10:58→21:35)
[2020-09-07] MEDS: FOLIC ACID 1 MG TAB PO SCH (10:59)
[2020-09-07] MEDS: ASPIRIN 81 MG TAB CHEW PO SCH (10:59)
[2020-09-07] MEDS: levETIRAcetam 500 MG/5 ML ORAL LIQD PO SCH ×2 (10:59→21:34)
[2020-09-07] MEDS: ASCORBIC ACID 500 MG TAB PO SCH ×2 (10:59→21:35)
[2020-09-07] MEDS: THIAMINE 100 MG TAB PO SCH (11:00)
[2020-09-07] MEDS: PANTOPRAZOLE 40 MG TAB PO SCH (11:00)
--- NOTE | 2020-09-07 15:25 | Progress Note ---
Assessment and Plan 1. ESRD: Patient is on maintenance hemodialysis three times a week, TTS schedule. Missed HD on 09/02 and 09/04. Hemodialysis: 09/05, 09/07. 2. FEN: Hyperkalemia, improved with HD. Monitor. 3. Anemia: Epogen as needed. Monitor. 4. COVID infection: CXR normal. No hypoxia. Seen by ID. 5. PVD: S/p b/l LE amputation. 6. Hyperparathyroidism: Cinacalcet. 7. DM type 2. 8. Seizure disorder. Subjective: Patient seen and examined at the bedside. Doing ok. Examination: General appearance: well-developed, appears stated age, no distress HEENT: ATNC, PERRL Neck: neck supple, trachea midline Respiratory: Clear to Auscultation Heart: regular, S1S2, no murmur Abdomen: soft, normoactive bowel sounds, not tender, not distended Integumentary: no obvious rash Neurologic: alert, confusion noted, oriented to self, moving extremities Ext: no edema, R AKA, L BKA Hemodialysis access: R FA AVF Subjective Date of service: 09/07/20 Objective - Vital Signs Vital signs: Vital Signs - 12hr 09/07/20 04:42 Temperature 99.2 F Respiratory 16 Rate Blood Pressure 193/143 - Lab 09/06/20 04:35 09/06/20 04:35 Most recent lab results Calcium 9.6 mg/dL (8.4-10.2) 09/06/20 04:35 Medications & Allergies - Medications Allergies/Adverse Reactions: Allergies Penicillins Allergy (Verified 07/11/19 17:31) Unknown Home Medications: Home Medications Medication Instructions Recorded Confirmed Last Taken Type diphenhydrAMINE [Benadryl CAP] 25 mg PO Q6HR PRN 12/27/16 09/04/20 05/24/19 History Insulin Lispro [Humalog 100 See Protocol SQ AC 02/14/17 09/04/20 05/22/19 History UNITS/ML Kwikpen] Donepezil HCl 10 mg PO QHS 11/10/18 09/04/20 05/25/19 History Losartan Potassium 100 mg PO QHS 11/10/18 09/04/20 05/25/19 History Metoprolol Tartrate 75 mg PO BID 11/10/18 09/04/20 05/25/19 History Sevelamer Carbonate 2,400 mg PO TIDWM 11/10/18 09/04/20 05/25/19 History Epoetin Darvin 10,000 Unit [Procrit] 10,000 unit IJ PRN 07/11/19 09/04/20 Unknown History ALBUTEROL NEB's [Proventil 0.083% 2.5 mg IH Q4HRT PRN #30 nebu 11/07/19 09/04/20 Unknown Rx NEBS] Acetaminophen [Acetaminophen TAB] 1 tab PO Q4HR PRN #15 11/07/19 09/04/20 Unknown Rx Ascorbic Acid [Vitamin C] 500 mg PO BID #60 tablet 11/07/19 09/04/20 Unknown Rx Aspirin [Aspirin BABY CHEW TAB] 81 mg PO QDAY #30 tab.chew 11/07/19 09/04/20 Unknown Rx AtorvaSTATin [Lipitor] 40 mg PO QHS #30 tablet 11/07/19 09/04/20 Unknown Rx Cinacalcet [Sensipar] 30 mg PO QDAY #30 tablet 11/07/19 09/04/20 Unknown Rx Ferrous Sulfate [Feosol 325 MG tab] 325 mg PO BID #60 tablet 11/07/19 09/04/20 Unknown Rx Folic Acid [Folvite] 1 mg PO DAILY #30 tablet 11/07/19 09/04/20 Unknown Rx Insulin Glargine [Lantus VIAL] 20 units SUB-Q QHS units 11/07/19 09/04/20 Unknown Rx Pantoprazole [Protonix TAB] 40 mg PO QDAY #15 tablet 11/07/19 09/04/20 Unknown Rx Thiamine [Vitamin B-1] 100 mg PO DAILY #30 tablet 11/07/19 09/04/20 Unknown Rx amLODIPine 10 mg PO QHS #30 tab 11/07/19 09/04/20 05/25/19 Rx bisacodyL [Dulcolax tab] 10 mg PO QDAY PRN #30 tablet 11/07/19 09/04/20 Unknown Rx cloNIDine-TTS PATCH [Catapres-Tts 0.1 mg TD Tu #4 patch 11/07/19 09/04/20 Unknown Rx 0.1MG Patch] levETIRAcetam [Keppra TAB] 250 mg PO BID #30 tablet 11/07/19 09/04/20 05/25/19 Rx Active Medications: Generic Name Dose Route Start Last Admin Trade Name Freq PRN Reason Stop Dose Admin Acetaminophen 650 mg 09/05/20 00:06 Acetaminophen 325 Mg Tab PO Q4H PRN Pain MILD(1-3)/Fever >100.5/DINERO Albuterol 2.5 mg 09/06/20 22:19 Albuterol 2.5 Mg/3 Ml Nebu IH Q4HRT PRN Shortness Of Breath Apixaban 2.5 mg 09/06/20 22:00 09/07/20 10:58 Apixaban 2.5 Mg Tab PO 2.5 mg Q12HR LUZ Administration Protocol Ascorbic Acid 500 mg 09/07/20 10:00 09/07/20 10:59 Ascorbic Acid 500 Mg Tab PO 500 mg BID LUZ Administration Aspirin 81 mg 09/07/20 10:00 09/07/20 10:59 Aspirin 81 Mg Tab Chew PO 81 mg QDAY LUZ Administration Atorvastatin Calcium 40 mg 09/07/20 22:00 Atorvastatin 40 Mg Tab PO QHS LUZ Bisacodyl 10 mg 09/06/20 22:19 Bisacodyl 5 Mg Tab PO QDAY PRN Constipation Cinacalcet 30 mg 09/07/20 10:00 09/07/20 10:58 Cinacalcet 30 Mg Tab PO 30 mg QDAY LUZ Administration Dextrose 50 ml 09/05/20 00:06 Dextrose 50% In Water (25gm) 50 Ml Syringe IV Q30MIN PRN Hypoglycemia Protocol Donepezil HCl 10 mg 09/07/20 22:00 Donepezil 10 Mg Tab PO QHS LUZ Epoetin Darvin 10,000 unit 09/06/20 20:24 Epoetin Darvin 10,000 Unit/1 Ml Inj SUB-Q OCRBY PRN hemodialysis Folic Acid 1 mg 09/07/20 10:00 09/07/20 10:59 Folic Acid 1 Mg Tab PO 1 mg DAILY LUZ Administration Heparin Sodium (Porcine) 3,000 unit 09/05/20 08:28 Heparin 10,000 Units/10 Ml Vial IV CORBY PRN hemodialysis Sodium Chloride 100 mls @ 999 mls/hr 09/05/20 08:28 Nacl 0.9% IV CORBY PRN Hypotension Insulin Glargine 10 units 09/07/20 22:00 Insulin Glargine 100 Units/Ml SUB-Q QHS LUZ Insulin Human Lispro 0 unit 09/05/20 07:30 09/07/20 11:30 Insulin Lispro 100 Unit/Ml Vial 3 Ml SUB-Q 4 unit ACHS LUZ Administration Protocol Insulin Human Lispro 5 unit 09/07/20 07:30 09/07/20 11:30 Insulin Lispro 100 Unit/Ml Vial 3 Ml SUB-Q 5 unit AC LUZ Administration Levetiracetam 250 mg 09/07/20 10:00 09/07/20 10:59 Levetiracetam 500 Mg/5 Ml Oral Liqd PO 250 mg BID LUZ Administration Magnesium Hydroxide 30 ml 09/05/20 00:06 Magnesium Hydroxide (Mom) Oral Liqd Udc PO Q4H PRN Constipation Morphine Sulfate 2 mg 09/05/20 00:06 Morphine 2 Mg/1 Ml Inj IV Q4H PRN Pain, Moderate (4-6) Ondansetron HCl 4 mg 09/05/20 00:06 Ondansetron 4 Mg/2 Ml Inj IV Q8H PRN Nausea And Vomiting Pantoprazole Sodium 40 mg 09/07/20 10:00 09/07/20 11:00 Pantoprazole 40 Mg Tab PO 40 mg QDAY LUZ Administration Sevelamer Carbonate 2,400 mg 09/07/20 08:00 09/07/20 12:30 Sevelamer Carbonate 800 Mg Tab PO 2,400 mg TIDWM LUZ Administration Sodium Chloride 10 ml 09/05/20 10:00 09/07/20 11:00 Sodium Chloride 0.9% 10 Ml Flush Syringe IV 10 ml BID LUZ Administration Sodium Chloride 10 ml 09/05/20 00:06 Sodium Chloride 0.9% 10 Ml Flush Syringe IV PRN PRN LINE FLUSH Thiamine HCl 100 mg 09/07/20 10:00 09/07/20 11:00 Thiamine 100 Mg Tab PO 100 mg DAILY LUZ Administration
[2020-09-07] MEDS: EPOETIN ALFA 10,000 UNIT/1 ML INJ SUB-Q PRN (17:09)
--- NOTE | 2020-09-07 18:25 | Progress Note ---
Assessment and Plan -- ESRD (end stage renal disease) on dialysis [employer] consulted for dialysis. -- Hyperkalemia Patient has had Kayexalate. Will monitor potassium level. -- Dementia continue routine home medications. --Diabetes mellitus type 2 We will monitor Accu-Cheks. resume home insulin dose -- Positive COVID-19 Patient was diagnosed with COVID-19 about 6 days ago before admission. Discussed with ID - no additional treatment needed --Seizure disorder, cont keppra -- DVT prophylaxis Patient placed on subcutaneous heparin. -- Full code status 09/05: Patient is positive for COVID but asymptomatic, no additional treatment needed per ID. CM to arrange to outpt HD where COVID +ve patient could be accommodate. Planned to d/c back to SNF. 09/06: Patient waiting on SNF and HD set up. cont current care 09/07: Getting HD at bedside. Per CM note he cannot resume his outpatient dialysis until he is negative for Covid. Continue to provide supportive care. Subjective Date of service: 09/07/20 Interval history: Patient seen and examined denies any SOB, resting on RA denies chest pain tolerating diet Objective - Exam Narrative Exam: General appearance: Present: no acute distress - EENT Eyes: PERRL, EOM intact ENT: hearing intact, clear oral mucosa Ears: bilateral: normal - Neck Neck: supple, normal ROM - Respiratory Respiratory effort: normal Respiratory: bilateral: CTA - Cardiovascular Rhythm: regular Heart Sounds: Present: S1 & S2. Absent: gallop, rub Extremities: pulses intact, No edema, normal color Extremity abnormal: other (Left BKA,Right AKA) - Gastrointestinal General gastrointestinal: Present: soft, non-tender, non-distended, normal bowel sounds - Integumentary Integumentary: clear, warm, dry - Musculoskeletal Musculoskeletal: generalized weakness - Neurologic Neurologic: moves all extremities - Psychiatric Psychiatric: appropriate mood/affect, cooperative - Constitutional Vitals: Vital Signs - 12hr 09/07/20 12:15 Temperature 98.2 F Pulse Rate 95 H Respiratory 19 Rate Blood Pressure 152/85 O2 Sat by Pulse 95 Oximetry - Labs CBC & Chem 7: 09/06/20 04:35 09/06/20 04:35 Labs: Abnormal lab results 09/06/20 09/07/20 09/07/20 Range/Units 21:41 08:25 12:15 POC Glucose 289 H 181 H 269 H (70-105) mg/dL 09/07/20 Range/Units 17:00 POC Glucose 119 H (70-105) mg/dL
[2020-09-07] MEDS: DONEPEZIL 10 MG TAB PO SCH (21:34)
[2020-09-07] MEDS: INSULIN GLARGINE 100 UNITS/ML SUB-Q SCH (21:40)
[2020-09-08] MEDS: ASCORBIC ACID 500 MG TAB PO SCH ×2 (09:41→22:27)
[2020-09-08] MEDS: THIAMINE 100 MG TAB PO SCH (09:41)
[2020-09-08] MEDS: ASPIRIN 81 MG TAB CHEW PO SCH (09:41)
[2020-09-08] MEDS: CINACALCET 30 MG TAB PO SCH (09:41)
[2020-09-08] MEDS: PANTOPRAZOLE 40 MG TAB PO SCH (09:41)
[2020-09-08] MEDS: SEVELAMER CARBONATE 800 MG TAB PO SCH ×3 (09:41→16:43)
[2020-09-08] MEDS: levETIRAcetam 500 MG/5 ML ORAL LIQD PO SCH ×2 (09:41→22:26)
[2020-09-08] MEDS: APIXABAN 2.5 MG TAB PO SCH ×2 (09:41→22:27)
[2020-09-08] MEDS: FOLIC ACID 1 MG TAB PO SCH (09:41)
[2020-09-08] MEDS: INSULIN LISPRO 100 UNIT/ML VIAL 3 mL SUB-Q SCH ×7 (09:42→22:25)
--- NOTE | 2020-09-08 12:29 | Progress Note ---
Assessment and Plan -- ESRD (end stage renal disease) on dialysis [employer] consulted for dialysis. -- Hyperkalemia Patient has had Kayexalate. Will monitor potassium level. -- Dementia continue routine home medications. --Diabetes mellitus type 2 We will monitor Accu-Cheks. resume home insulin dose -- Positive COVID-19 Patient was diagnosed with COVID-19 about 6 days ago before admission. Discussed with ID - no additional treatment needed --Seizure disorder, cont keppra -- DVT prophylaxis Patient placed on subcutaneous heparin. -- Full code status 09/05: Patient is positive for COVID but asymptomatic, no additional treatment needed per ID. CM to arrange to outpt HD where COVID +ve patient could be accommodate. Planned to d/c back to SNF. 09/06: Patient waiting on SNF and HD set up. cont current care 09/07: Getting HD at bedside. Per CM note he cannot resume his outpatient dialysis until he is negative for Covid. Continue to provide supportive care. 09/08; patient need a negative Covid test to resume outpatient dialysis, will order repeat Covid test tomorrow Subjective Date of service: 09/08/20 Interval history: Patient seen and examined denies any SOB, resting on RA denies chest pain tolerating diet Objective - Exam Narrative Exam: General appearance: Present: no acute distress - EENT Eyes: PERRL, EOM intact ENT: hearing intact, clear oral mucosa Ears: bilateral: normal - Neck Neck: supple, normal ROM - Respiratory Respiratory effort: normal Respiratory: bilateral: CTA - Cardiovascular Rhythm: regular Heart Sounds: Present: S1 & S2. Absent: gallop, rub Extremities: pulses intact, No edema, normal color Extremity abnormal: other (Left BKA,Right AKA) - Gastrointestinal General gastrointestinal: Present: soft, non-tender, non-distended, normal bowel sounds - Integumentary Integumentary: clear, warm, dry - Musculoskeletal Musculoskeletal: generalized weakness - Neurologic Neurologic: moves all extremities - Psychiatric Psychiatric: appropriate mood/affect, cooperative - Constitutional Vitals: Vital Signs - 12hr 09/08/20 04:31 Temperature 98.9 F Pulse Rate 83 Respiratory 18 Rate Blood Pressure 134/72 O2 Sat by Pulse 97 Oximetry - Labs CBC & Chem 7: 09/09/20 08:12 09/10/20 04:51 Labs: Abnormal lab results 09/07/20 09/07/20 09/08/20 Range/Units 17:00 21:39 08:23 POC Glucose 119 H 232 H 177 H (70-105) mg/dL 09/08/20 Range/Units 11:19 POC Glucose 244 H (70-105) mg/dL
--- NOTE | 2020-09-08 13:10 | Progress Note ---
Assessment and Plan 1. ESRD: Patient is on maintenance hemodialysis three times a week, TTS schedule. Missed HD on 09/02 and 09/04. Hemodialysis: 09/05, 09/07. 2. FEN: Hyperkalemia, improved with HD. Monitor. 3. Anemia: Epogen as needed. Monitor. 4. COVID infection: CXR normal. No hypoxia. Seen by ID. 5. PVD: S/p b/l LE amputation. 6. Hyperparathyroidism: Cinacalcet. 7. DM type 2. 8. Seizure disorder. Subjective: Patient seen and examined at the bedside. Doing ok. Examination: General appearance: well-developed, appears stated age, no distress HEENT: ATNC, PERRL Neck: neck supple, trachea midline Respiratory: Clear to Auscultation Heart: regular, S1S2, no murmur Abdomen: soft, normoactive bowel sounds, not tender, not distended Integumentary: no obvious rash Neurologic: alert, confusion noted, oriented to self, moving extremities Ext: no edema, R AKA, L BKA Hemodialysis access: R FA AVF Subjective Date of service: 09/08/20 Objective - Vital Signs Vital signs: Vital Signs - 12hr 09/08/20 04:31 Temperature 98.9 F Pulse Rate 83 Respiratory 18 Rate Blood Pressure 134/72 O2 Sat by Pulse 97 Oximetry - Lab 09/06/20 04:35 09/06/20 04:35 Most recent lab results Calcium 9.6 mg/dL (8.4-10.2) 09/06/20 04:35 Medications & Allergies - Medications Allergies/Adverse Reactions: Allergies Penicillins Allergy (Verified 07/11/19 17:31) Unknown Home Medications: Home Medications Medication Instructions Recorded Confirmed Last Taken Type diphenhydrAMINE [Benadryl CAP] 25 mg PO Q6HR PRN 12/27/16 09/04/20 05/24/19 History Insulin Lispro [Humalog 100 See Protocol SQ AC 02/14/17 09/04/20 05/22/19 History UNITS/ML Kwikpen] Donepezil HCl 10 mg PO QHS 11/10/18 09/04/20 05/25/19 History Losartan Potassium 100 mg PO QHS 11/10/18 09/04/20 05/25/19 History Metoprolol Tartrate 75 mg PO BID 11/10/18 09/04/20 05/25/19 History Sevelamer Carbonate 2,400 mg PO TIDWM 11/10/18 09/04/20 05/25/19 History Epoetin Darvin 10,000 Unit [Procrit] 10,000 unit IJ PRN 07/11/19 09/04/20 Unknown History ALBUTEROL NEB's [Proventil 0.083% 2.5 mg IH Q4HRT PRN #30 nebu 11/07/19 09/04/20 Unknown Rx NEBS] Acetaminophen [Acetaminophen TAB] 1 tab PO Q4HR PRN #15 11/07/19 09/04/20 Unknown Rx Ascorbic Acid [Vitamin C] 500 mg PO BID #60 tablet 11/07/19 09/04/20 Unknown Rx Aspirin [Aspirin BABY CHEW TAB] 81 mg PO QDAY #30 tab.chew 11/07/19 09/04/20 Unknown Rx AtorvaSTATin [Lipitor] 40 mg PO QHS #30 tablet 11/07/19 09/04/20 Unknown Rx Cinacalcet [Sensipar] 30 mg PO QDAY #30 tablet 11/07/19 09/04/20 Unknown Rx Ferrous Sulfate [Feosol 325 MG tab] 325 mg PO BID #60 tablet 11/07/19 09/04/20 Unknown Rx Folic Acid [Folvite] 1 mg PO DAILY #30 tablet 11/07/19 09/04/20 Unknown Rx Insulin Glargine [Lantus VIAL] 20 units SUB-Q QHS units 11/07/19 09/04/20 Unknown Rx Pantoprazole [Protonix TAB] 40 mg PO QDAY #15 tablet 11/07/19 09/04/20 Unknown Rx Thiamine [Vitamin B-1] 100 mg PO DAILY #30 tablet 11/07/19 09/04/20 Unknown Rx amLODIPine 10 mg PO QHS #30 tab 11/07/19 09/04/20 05/25/19 Rx bisacodyL [Dulcolax tab] 10 mg PO QDAY PRN #30 tablet 11/07/19 09/04/20 Unknown Rx cloNIDine-TTS PATCH [Catapres-Tts 0.1 mg TD Tu #4 patch 11/07/19 09/04/20 Unknown Rx 0.1MG Patch] levETIRAcetam [Keppra TAB] 250 mg PO BID #30 tablet 11/07/19 09/04/20 05/25/19 Rx Active Medications: Generic Name Dose Route Start Last Admin Trade Name Mirta PRN Reason Stop Dose Admin Acetaminophen 650 mg 09/05/20 00:06 Acetaminophen 325 Mg Tab PO Q4H PRN Pain MILD(1-3)/Fever >100.5/DINERO Albuterol 2.5 mg 09/06/20 22:19 Albuterol 2.5 Mg/3 Ml Nebu IH Q4HRT PRN Shortness Of Breath Apixaban 2.5 mg 09/06/20 22:00 09/08/20 09:41 Apixaban 2.5 Mg Tab PO 2.5 mg Q12HR LUZ Administration Protocol Ascorbic Acid 500 mg 09/07/20 10:00 09/08/20 09:41 Ascorbic Acid 500 Mg Tab PO 500 mg BID LUZ Administration Aspirin 81 mg 09/07/20 10:00 09/08/20 09:41 Aspirin 81 Mg Tab Chew PO 81 mg QDAY LUZ Administration Atorvastatin Calcium 40 mg 09/07/20 22:00 09/07/20 21:35 Atorvastatin 40 Mg Tab PO 40 mg QHS LUZ Administration Bisacodyl 10 mg 09/06/20 22:19 Bisacodyl 5 Mg Tab PO QDAY PRN Constipation Cinacalcet 30 mg 09/07/20 10:00 09/08/20 09:41 Cinacalcet 30 Mg Tab PO 30 mg QDAY LUZ Administration Dextrose 50 ml 09/05/20 00:06 Dextrose 50% In Water (25gm) 50 Ml Syringe IV Q30MIN PRN Hypoglycemia Protocol Donepezil HCl 10 mg 09/07/20 22:00 09/07/20 21:34 Donepezil 10 Mg Tab PO 10 mg QHS LUZ Administration Epoetin Darvin 10,000 unit 09/06/20 20:24 09/07/20 17:09 Epoetin Darvin 10,000 Unit/1 Ml Inj SUB-Q 10,000 unit CORBY PRN Administration hemodialysis Folic Acid 1 mg 09/07/20 10:00 09/08/20 09:41 Folic Acid 1 Mg Tab PO 1 mg DAILY LUZ Administration Heparin Sodium (Porcine) 3,000 unit 09/05/20 08:28 09/07/20 15:34 Heparin 10,000 Units/10 Ml Vial IV 3,000 unit CORBY PRN Administration hemodialysis Sodium Chloride 100 mls @ 999 mls/hr 09/05/20 08:28 Nacl 0.9% IV CORBY PRN Hypotension Insulin Glargine 10 units 09/07/20 22:00 09/07/20 21:40 Insulin Glargine 100 Units/Ml SUB-Q 10 units QHS LUZ Administration Insulin Human Lispro 0 unit 09/05/20 07:30 09/08/20 12:18 Insulin Lispro 100 Unit/Ml Vial 3 Ml SUB-Q 4 unit ACHS LUZ Administration Protocol Insulin Human Lispro 5 unit 09/07/20 07:30 09/08/20 12:17 Insulin Lispro 100 Unit/Ml Vial 3 Ml SUB-Q 5 unit AC LUZ Administration Levetiracetam 250 mg 09/07/20 10:00 09/08/20 09:41 Levetiracetam 500 Mg/5 Ml Oral Liqd PO 250 mg BID LUZ Administration Magnesium Hydroxide 30 ml 09/05/20 00:06 Magnesium Hydroxide (Mom) Oral Liqd Udc PO Q4H PRN Constipation Morphine Sulfate 2 mg 09/05/20 00:06 Morphine 2 Mg/1 Ml Inj IV Q4H PRN Pain, Moderate (4-6) Ondansetron HCl 4 mg 09/05/20 00:06 Ondansetron 4 Mg/2 Ml Inj IV Q8H PRN Nausea And Vomiting Pantoprazole Sodium 40 mg 09/07/20 10:00 09/08/20 09:41 Pantoprazole 40 Mg Tab PO 40 mg QDAY LUZ Administration Sevelamer Carbonate 2,400 mg 09/07/20 08:00 09/08/20 12:16 Sevelamer Carbonate 800 Mg Tab PO 2,400 mg TIDWM LUZ Administration Sodium Chloride 10 ml 09/05/20 10:00 09/08/20 12:18 Sodium Chloride 0.9% 10 Ml Flush Syringe IV Not Given BID LUZ Sodium Chloride 10 ml 09/05/20 00:06 Sodium Chloride 0.9% 10 Ml Flush Syringe IV PRN PRN LINE FLUSH Thiamine HCl 100 mg 09/07/20 10:00 09/08/20 09:41 Thiamine 100 Mg Tab PO 100 mg DAILY LUZ Administration
[2020-09-08] MEDS: DONEPEZIL 10 MG TAB PO SCH (22:26)
[2020-09-08] MEDS: INSULIN GLARGINE 100 UNITS/ML SUB-Q SCH (22:27)
[2020-09-09] MEDS: INSULIN LISPRO 100 UNIT/ML VIAL 3 mL SUB-Q SCH ×7 (08:35→23:49)
[2020-09-09] MEDS: SEVELAMER CARBONATE 800 MG TAB PO SCH ×3 (08:42→16:40)
[2020-09-09 09:33] LABS: Basophils % (Auto) 0.7 % (0.0-1.8); Eosinophils # (Auto) 0.2 K/mm3 (0.0-0.4); Hematocrit 28.5 % (35.5-45.6); Lymphocytes # (Auto) 1.1 K/mm3 (1.2-5.4); Lymphocytes % (Auto) 29.4 % (13.4-35.0); Mean Corpuscular HGB Conc 32 % (32-34); Mean Corpuscular Volume 89 fl (84-94); Monocytes # (Auto) 0.3 K/mm3 (0.0-0.8); Monocytes % (Auto) 8.9 % (0.0-7.3); Platelet Count 177 K/mm3 (140-440); Red Blood Count 3.21 M/mm3 (3.65-5.03)
[2020-09-09 09:45] LABS: Calcium 9.4 mg/dL (8.4-10.2)
[2020-09-09] MEDS: CINACALCET 30 MG TAB PO SCH (10:36)
[2020-09-09] MEDS: APIXABAN 2.5 MG TAB PO SCH ×2 (10:37→23:01)
[2020-09-09] MEDS: ASCORBIC ACID 500 MG TAB PO SCH ×2 (10:37→23:01)
[2020-09-09] MEDS: levETIRAcetam 500 MG/5 ML ORAL LIQD PO SCH ×2 (10:37→23:02)
[2020-09-09] MEDS: ASPIRIN 81 MG TAB CHEW PO SCH (10:37)
[2020-09-09] MEDS: THIAMINE 100 MG TAB PO SCH (10:38)
[2020-09-09] MEDS: FOLIC ACID 1 MG TAB PO SCH (10:38)
[2020-09-09] MEDS: PANTOPRAZOLE 40 MG TAB PO SCH (10:38)
--- NOTE | 2020-09-09 14:26 | Progress Note ---
Assessment and Plan -- ESRD (end stage renal disease) on dialysis [facility] consulted for dialysis. -- Hyperkalemia Patient has had Kayexalate. Will monitor potassium level. -- Dementia continue routine home medications. --Diabetes mellitus type 2 We will monitor Accu-Cheks. resume home insulin dose -- Positive COVID-19 Patient was diagnosed with COVID-19 about 6 days ago before admission. Discussed with ID - no additional treatment needed --Seizure disorder, cont keppra -- DVT prophylaxis Patient placed on subcutaneous heparin. -- Full code status 09/05: Patient is positive for COVID but asymptomatic, no additional treatment needed per ID. CM to arrange to outpt HD where COVID +ve patient could be accommodate. Planned to d/c back to SNF. 09/06: Patient waiting on SNF and HD set up. cont current care 09/07: Getting HD at bedside. Per CM note he cannot resume his outpatient dialysis until he is negative for Covid. Continue to provide supportive care. 09/08; patient need a negative Covid test to resume outpatient dialysis, will order repeat Covid test tomorrow 09/09: Pt covid test is positive. [facility] cannot accept pt back at this time. Referral faxed to [facility] for placement. Will continue to follow. Subjective Date of service: 09/09/20 Interval history: Patient seen and examined denies any SOB, resting on RA denies chest pain tolerating diet Objective - Exam Narrative Exam: General appearance: Present: no acute distress - EENT Eyes: PERRL, EOM intact ENT: hearing intact, clear oral mucosa Ears: bilateral: normal - Neck Neck: supple, normal ROM - Respiratory Respiratory effort: normal Respiratory: bilateral: CTA - Cardiovascular Rhythm: regular Heart Sounds: Present: S1 & S2. Absent: gallop, rub Extremities: pulses intact, No edema, normal color Extremity abnormal: other (Left BKA,Right AKA) - Gastrointestinal General gastrointestinal: Present: soft, non-tender, non-distended, normal bowel sounds - Integumentary Integumentary: clear, warm, dry - Musculoskeletal Musculoskeletal: generalized weakness - Neurologic Neurologic: moves all extremities - Psychiatric Psychiatric: appropriate mood/affect, cooperative - Labs CBC & Chem 7: 09/09/20 08:12 09/10/20 04:51 Labs: Abnormal lab results 09/08/20 09/08/20 09/09/20 Range/Units 16:11 21:35 08:12 WBC 3.8 L (4.5-11.0) K/mm3 RBC 3.21 L (3.65-5.03) M/mm3 Hgb 9.0 L (11.8-15.2) gm/dl Hct 28.5 L (35.5-45.6) % [place] % (Auto) 8.9 H (0.0-7.3) % Eos % (Auto) 6.0 H (0.0-4.3) % Lymph # (Auto) 1.1 L (1.2-5.4) K/mm3 BUN (9-20) mg/dL Creatinine (0.8-1.3) mg/dL Glucose (75-100) mg/dL POC Glucose 140 H 258 H (70-105) mg/dL 09/09/20 09/09/20 09/09/20 Range/Units 08:12 08:13 11:44 WBC (4.5-11.0) K/mm3 RBC (3.65-5.03) M/mm3 Hgb (11.8-15.2) gm/dl Hct (35.5-45.6) % [place] % (Auto) (0.0-7.3) % Eos % (Auto) (0.0-4.3) % Lymph # (Auto) (1.2-5.4) K/mm3 BUN 75 H (9-20) mg/dL Creatinine 6.6 H (0.8-1.3) mg/dL Glucose 123 H (75-100) mg/dL POC Glucose 107 H 195 H (70-105) mg/dL
--- NOTE | 2020-09-09 14:44 | Progress Note ---
Assessment and Plan 1. ESRD: Patient is on maintenance hemodialysis three times a week, TTS schedule. Missed HD on 09/02 and 09/04. Hemodialysis: 09/05, 09/07. 2. FEN: Hypocalcemia, Cinacalcet stopped, check PTH, monitor. Replete Calcium. Hyperkalemia, improved with HD. Monitor. 3. Anemia: Epogen as needed. Monitor. 4. COVID infection: CXR normal. No hypoxia. Seen by ID. 5. PVD: S/p b/l LE amputation. 6. Hyperparathyroidism: Cinacalcet stopped due to hypocalcemia. Follow PTH. 7. DM type 2. 8. Seizure disorder. Subjective: Patient seen and examined at the bedside. Doing ok. Examination: General appearance: well-developed, appears stated age, no distress HEENT: ATNC, PERRL Neck: neck supple, trachea midline Respiratory: Clear to Auscultation Heart: regular, S1S2, no murmur Abdomen: soft, normoactive bowel sounds, not tender, not distended Integumentary: no obvious rash Neurologic: alert, confusion noted, oriented to self, moving extremities Ext: no edema, R AKA, L BKA Hemodialysis access: R FA AVF Subjective Date of service: 09/09/20 Objective - Vital Signs Vital signs: Vital Signs - 12hr 09/09/20 09/09/20 05:48 11:50 Temperature 97.5 F L 98.0 F Pulse Rate 83 89 Respiratory 20 22 Rate Blood Pressure 161/77 Blood Pressure 173/84 [Right] O2 Sat by Pulse 98 98 Oximetry - Lab 09/09/20 08:12 09/09/20 08:12 Most recent lab results Calcium 9.4 mg/dL (8.4-10.2) 09/09/20 08:12 Medications & Allergies - Medications Allergies/Adverse Reactions: Allergies Penicillins Allergy (Verified 07/11/19 17:31) Unknown Home Medications: Home Medications Medication Instructions Recorded Confirmed Last Taken Type diphenhydrAMINE [Benadryl CAP] 25 mg PO Q6HR PRN 12/27/16 09/04/20 05/24/19 History Insulin Lispro [Humalog 100 See Protocol SQ AC 02/14/17 09/04/20 05/22/19 History UNITS/ML Kwikpen] Donepezil HCl 10 mg PO QHS 11/10/18 09/04/20 05/25/19 History Losartan Potassium 100 mg PO QHS 11/10/18 09/04/20 05/25/19 History Metoprolol Tartrate 75 mg PO BID 11/10/18 09/04/20 05/25/19 History Sevelamer Carbonate 2,400 mg PO TIDWM 11/10/18 09/04/20 05/25/19 History Epoetin Darvin 10,000 Unit [Procrit] 10,000 unit IJ PRN 07/11/19 09/04/20 Unknown History ALBUTEROL NEB's [Proventil 0.083% 2.5 mg IH Q4HRT PRN #30 nebu 11/07/19 09/04/20 Unknown Rx NEBS] Acetaminophen [Acetaminophen TAB] 1 tab PO Q4HR PRN #15 11/07/19 09/04/20 Unknown Rx Ascorbic Acid [Vitamin C] 500 mg PO BID #60 tablet 11/07/19 09/04/20 Unknown Rx Aspirin [Aspirin BABY CHEW TAB] 81 mg PO QDAY #30 tab.chew 11/07/19 09/04/20 Unknown Rx AtorvaSTATin [Lipitor] 40 mg PO QHS #30 tablet 11/07/19 09/04/20 Unknown Rx Cinacalcet [Sensipar] 30 mg PO QDAY #30 tablet 11/07/19 09/04/20 Unknown Rx Ferrous Sulfate [Feosol 325 MG tab] 325 mg PO BID #60 tablet 11/07/19 09/04/20 Unknown Rx Folic Acid [Folvite] 1 mg PO DAILY #30 tablet 11/07/19 09/04/20 Unknown Rx Insulin Glargine [Lantus VIAL] 20 units SUB-Q QHS units 11/07/19 09/04/20 Unkn own Rx Pantoprazole [Protonix TAB] 40 mg PO QDAY #15 tablet 11/07/19 09/04/20 Unknown Rx Thiamine [Vitamin B-1] 100 mg PO DAILY #30 tablet 11/07/19 09/04/20 Unknown Rx amLODIPine 10 mg PO QHS #30 tab 11/07/19 09/04/20 05/25/19 Rx bisacodyL [Dulcolax tab] 10 mg PO QDAY PRN #30 tablet 11/07/19 09/04/20 Unknown Rx cloNIDine-TTS PATCH [Catapres-Tts 0.1 mg TD Tu #4 patch 11/07/19 09/04/20 Unk nown Rx 0.1MG Patch] levETIRAcetam [Keppra TAB] 250 mg PO BID #30 tablet 11/07/19 09/04/20 05/25/19 Rx Active Medications: Generic Name Dose Route Start Last Admin Trade Name Freq PRN Reason Stop Dose Admin Acetaminophen 650 mg 09/05/20 00:06 Acetaminophen 325 Mg Tab PO Q4H PRN Pain MILD(1-3)/Fever >100.5/DINERO Albuterol 2.5 mg 09/06/20 22:19 Albuterol 2.5 Mg/3 Ml Nebu IH Q4HRT PRN Shortness Of Breath Apixaban 2.5 mg 09/06/20 22:00 09/09/20 10:37 Apixaban 2.5 Mg Tab PO 2.5 mg Q12HR LUZ Administration Protocol Ascorbic Acid 500 mg 09/07/20 10:00 09/09/20 10:37 Ascorbic Acid 500 Mg Tab PO 500 mg BID LUZ Administration Aspirin 81 mg 09/07/20 10:00 09/09/20 10:37 Aspirin 81 Mg Tab Chew PO 81 mg QDAY LUZ Administration Atorvastatin Calcium 40 mg 09/07/20 22:00 09/08/20 22:27 Atorvastatin 40 Mg Tab PO 40 mg QHS LUZ Administration Bisacodyl 10 mg 09/06/20 22:19 Bisacodyl 5 Mg Tab PO QDAY PRN Constipation Cinacalcet 30 mg 09/07/20 10:00 09/09/20 10:36 Cinacalcet 30 Mg Tab PO 30 mg QDAY LUZ Administration Dextrose 50 ml 09/05/20 00:06 Dextrose 50% In Water (25gm) 50 Ml Syringe IV Q30MIN PRN Hypoglycemia Protocol Donepezil HCl 10 mg 09/07/20 22:00 09/08/20 22:26 Donepezil 10 Mg Tab PO 10 mg QHS LUZ Administration Epoetin Darvin 10,000 unit 09/06/20 20:24 09/07/20 17:09 Epoetin Darvin 10,000 Unit/1 Ml Inj SUB-Q 10,000 unit CORBY PRN Administration hemodialysis Folic Acid 1 mg 09/07/20 10:00 09/09/20 10:38 Folic Acid 1 Mg Tab PO 1 mg DAILY LUZ Administration Heparin Sodium (Porcine) 3,000 unit 09/05/20 08:28 09/07/20 15:34 Heparin 10,000 Units/10 Ml Vial IV 3,000 unit CORBY PRN Administration hemodialysis Sodium Chloride 100 mls @ 999 mls/hr 09/05/20 08:28 Nacl 0.9% IV CORBY PRN Hypotension Insulin Glargine 10 units 09/07/20 22:00 09/08/20 22:27 Insulin Glargine 100 Units/Ml SUB-Q 10 units QHS LUZ Administration Insulin Human Lispro 0 unit 09/05/20 07:30 09/09/20 13:01 Insulin Lispro 100 Unit/Ml Vial 3 Ml SUB-Q 2 unit ACHS LUZ Administration Protocol Insulin Human Lispro 5 unit 09/07/20 07:30 09/09/20 13:01 Insulin Lispro 100 Unit/Ml Vial 3 Ml SUB-Q 5 unit AC LUZ Administration Levetiracetam 250 mg 09/07/20 10:00 09/09/20 10:37 Levetiracetam 500 Mg/5 Ml Oral Liqd PO 250 mg BID LUZ Administration Magnesium Hydroxide 30 ml 09/05/20 00:06 Magnesium Hydroxide (Mom) Oral Liqd Udc PO Q4H PRN Constipation Morphine Sulfate 2 mg 09/05/20 00:06 Morphine 2 Mg/1 Ml Inj IV Q4H PRN Pain, Moderate (4-6) Ondansetron HCl 4 mg 09/05/20 00:06 Ondansetron 4 Mg/2 Ml Inj IV Q8H PRN Nausea And Vomiting Pantoprazole Sodium 40 mg 09/10/20 07:30 Pantoprazole 40 Mg Tab PO QDAC LUZ Sevelamer Carbonate 2,400 mg 09/07/20 08:00 09/09/20 13:02 Sevelamer Carbonate 800 Mg Tab PO 2,400 mg TIDWM LUZ Administration Sodium Chloride 10 ml 09/05/20 10:00 09/09/20 10:38 Sodium Chloride 0.9% 10 Ml Flush Syringe IV Not Given BID LUZ Sodium Chloride 10 ml 09/05/20 00:06 Sodium Chloride 0.9% 10 Ml Flush Syringe IV PRN PRN LINE FLUSH Thiamine HCl 100 mg 09/07/20 10:00 09/09/20 10:38 Thiamine 100 Mg Tab PO 100 mg DAILY LUZ Administration
[2020-09-09] MEDS ORDERED: CALCIUM GLUCONATE 2,000 MG in SODIUM CHLORIDE 0.9% 100 ML IV ONE (16:00)
[2020-09-09] MEDS: DONEPEZIL 10 MG TAB PO SCH (23:02)
[2020-09-09] MEDS: INSULIN GLARGINE 100 UNITS/ML SUB-Q SCH (23:49)
[2020-09-10] MEDS ORDERED: PANTOPRAZOLE 40 MG TAB PO SCH (07:30)
--- NOTE | 2020-09-10 08:19 | Progress Note ---
Assessment and Plan Assessment and plan: -- ESRD (end stage renal disease) on dialysis Lab Intern consulted for dialysis. -- Hyperkalemia Patient has had Kayexalate. Will monitor potassium level. -- Dementia continue routine home medications. --Diabetes mellitus type 2 We will monitor Accu-Cheks. resume home insulin dose -- Positive COVID-19 Patient was diagnosed with COVID-19 about 6 days ago before admission. Discussed with ID - no additional treatment needed --Seizure disorder, cont keppra -- DVT prophylaxis Patient placed on subcutaneous heparin. -- Full code status 09/05: Patient is positive for COVID but asymptomatic, no additional treatment needed per ID. CM to arrange to outpt HD where COVID +ve patient could be accommodate. Planned to d/c back to SNF. 09/06: Patient waiting on SNF and HD set up. cont current care 09/07: Getting HD at bedside. Per CM note he cannot resume his outpatient dialysis until he is negative for Covid. Continue to provide supportive care. 09/08; patient need a negative Covid test to resume outpatient dialysis, will order repeat Covid test tomorrow 09/09: Pt covid test is positive. [facility] cannot accept pt back at this time. Referral faxed to [facility] for placement. Will continue to follow. 09/10/2020; patient's Covid test is positive yesterday. [facility] cannot accept pt back at this time. Referral faxed to [facility] for placement. Will continue to follow. Patient had dark stool and I ordered a stat H&H, fecal occult blood test, GI consult. Patient has low blood pressure, but he just finished his dialysis and will continue to monitor. If his blood pressure continues to be low we will give him midodrine. History Interval history: Patient was seen and evaluated this morning Patient was getting hemodialysis by the time I saw him Later the nurse reported that the patient has dark stool Hospitalist Physical - Physical exam Narrative exam: Not in cardiopulmonary distress. The patient appeared well nourished and normally developed. Vital signs as documented. Head exam is unremarkable. No scleral icterus . Neck is without jugular venous distension, thyromegaly, or carotid bruits. Lungs are clear to auscultation. Cardiac exam reveals regular rate and Rhythm. Abdominal exam reveals normal bowel sounds, nontender, no organomegaly. Extremities left BKA, right AKA. NOC ANALYST: Alert and oriented 3. - Constitutional Vitals: Temp Pulse Resp BP Pulse Ox 98.9 F 94 H 20 143/66 95 09/10/20 04:34 09/10/20 04:34 09/10/20 04:34 09/10/20 04:34 09/10/20 04:34 General appearance: Present: no acute distress Results - Labs CBC & Chem 7: 09/09/20 08:12 09/10/20 04:51 Labs: Laboratory Last Values WBC 3.8 K/mm3 (4.5-11.0) L 09/09/20 08:12 RBC 3.21 M/mm3 (3.65-5.03) L 09/09/20 08:12 Hgb 9.0 gm/dl (11.8-15.2) L 09/09/20 08:12 Hct 28.5 % (35.5-45.6) L 09/09/20 08:12 MCV 89 fl (84-94) 09/09/20 08:12 MCH 28 pg (28-32) 09/09/20 08:12 MCHC 32 % (32-34) 09/09/20 08:12 RDW 15.0 % (13.2-15.2) 09/09/20 08:12 Plt Count 177 K/mm3 (140-440) 09/09/20 08:12 Lymph % (Auto) 29.4 % (13.4-35.0) 09/09/20 08:12 [place] % (Auto) 8.9 % (0.0-7.3) H 09/09/20 08:12 Eos % (Auto) 6.0 % (0.0-4.3) H 09/09/20 08:12 Baso % (Auto) 0.7 % (0.0-1.8) 09/09/20 08:12 Lymph # (Auto) 1.1 K/mm3 (1.2-5.4) L 09/09/20 08:12 [place] # (Auto) 0.3 K/mm3 (0.0-0.8) 09/09/20 08:12 Eos # (Auto) 0.2 K/mm3 (0.0-0.4) 09/09/20 08:12 Baso # (Auto) 0.0 K/mm3 (0.0-0.1) 09/09/20 08:12 Seg Neutrophils % 55.0 % (40.0-70.0) 09/09/20 08:12 Seg Neutrophils # 2.1 K/mm3 (1.8-7.7) 09/09/20 08:12 PT 14.6 Sec. (12.2-14.9) 09/06/20 04:35 INR 1.15 (0.87-1.13) H 09/06/20 04:35 D-Dimer 918.99 ng/mlDDU (0-234) H 09/05/20 14:37 Sodium 139 mmol/L (137-145) 09/10/20 04:51 Potassium 5.7 mmol/L (3.6-5.0) H 09/10/20 04:51 Chloride 100.0 mmol/L (98-107) 09/10/20 04:51 Carbon Dioxide 26 mmol/L (22-30) 09/10/20 04:51 Anion Gap 19 mmol/L 09/10/20 04:51 BUN 110 mg/dL (9-20) H 09/10/20 04:51 Creatinine 7.8 mg/dL (0.8-1.3) H 09/10/20 04:51 Estimated GFR 9 ml/min 09/10/20 04:51 BUN/Creatinine Ratio 14 % 09/10/20 04:51 Glucose 210 mg/dL (75-100) H 09/10/20 04:51 POC Glucose 151 mg/dL (70-105) H 09/09/20 23:44 Calcium 9.0 mg/dL (8.4-10.2) 09/10/20 04:51 Ferritin 447.5 ng/mL (30.0-300.0) H 09/05/20 14:37 Lactate Dehydrogenase 163 units/L (91-180) 09/05/20 14:37 C-Reactive Protein 0.30 mg/dL (0.00-1.30) 09/05/20 14:37 Procalcitonin 0.19 ng/mL (<0.15) 09/05/20 14:37 PTH Intact 1025 pg/mL (15-65) H 09/10/20 04:51 Coronavirus (PCR) Positive (Negative) A 09/09/20 Unknown Hepatitis A IgM Ab Non-reactive (NonReactive) 09/05/20 13:39 Hep Bs Antigen Non-reactive (Negative) 09/05/20 13:39 Hep B Core IgM Ab Non-reactive (NonReactive) 09/05/20 13:39 Hepatitis C Antibody Non-reactive (NonReactive) 09/05/20 13:39 [place]/IV: Voiding Method Urinal IV Catheter Type [Left Wrist] INT / Saline Lock IV Catheter Type [Left INT / Saline Lock Antecubital] IV Catheter Type [Right AV fistula Forearm] Active Medications - Current Medications Current Medications: Generic Name Dose Route Start Last Admin Trade Name Freq PRN Reason Stop Dose Admin Acetaminophen 650 mg 09/05/20 00:06 Acetaminophen 325 Mg Tab PO Q4H PRN Pain MILD(1-3)/Fever >100.5/DINERO Albuterol 2.5 mg 09/06/20 22:19 Albuterol 2.5 Mg/3 Ml Nebu IH Q4HRT PRN Shortness Of Breath Apixaban 2.5 mg 09/06/20 22:00 09/09/20 23:01 Apixaban 2.5 Mg Tab PO 2.5 mg Q12HR LUZ Administration Protocol Ascorbic Acid 500 mg 09/07/20 10:00 09/09/20 23:01 Ascorbic Acid 500 Mg Tab PO 500 mg BID LUZ Administration Aspirin 81 mg 09/07/20 10:00 09/09/20 10:37 Aspirin 81 Mg Tab Chew PO 81 mg QDAY LUZ Administration Atorvastatin Calcium 40 mg 09/07/20 22:00 09/09/20 23:01 Atorvastatin 40 Mg Tab PO 40 mg QHS LUZ Administration Bisacodyl 10 mg 09/06/20 22:19 Bisacodyl 5 Mg Tab PO QDAY PRN Constipation Dextrose 50 ml 09/05/20 00:06 Dextrose 50% In Water (25gm) 50 Ml Syringe IV Q30MIN PRN Hypoglycemia Protocol Donepezil HCl 10 mg 09/07/20 22:00 09/09/20 23:02 Donepezil 10 Mg Tab PO 10 mg QHS LUZ Administration Epoetin Darvin 10,000 unit 09/06/20 20:24 09/07/20 17:09 Epoetin Darvin 10,000 Unit/1 Ml Inj SUB-Q 10,000 unit CORBY PRN Administration hemodialysis Folic Acid 1 mg 09/07/20 10:00 09/09/20 10:38 Folic Acid 1 Mg Tab PO 1 mg DAILY LUZ Administration Heparin Sodium (Porcine) 3,000 unit 09/05/20 08:28 09/07/20 15:34 Heparin 10,000 Units/10 Ml Vial IV 3,000 unit CORBY PRN Administration hemodialysis Sodium Chloride 100 mls @ 999 mls/hr 09/05/20 08:28 Nacl 0.9% IV CORBY PRN Hypotension Insulin Glargine 10 units 09/07/20 22:00 09/09/20 23:49 Insulin Glargine 100 Units/Ml SUB-Q 10 units QHS LUZ Administration Insulin Human Lispro 0 unit 09/05/20 07:30 09/09/20 23:49 Insulin Lispro 100 Unit/Ml Vial 3 Ml SUB-Q 2 unit ACHS LUZ Administration Protocol Insulin Human Lispro 5 unit 09/07/20 07:30 09/09/20 16:40 Insulin Lispro 100 Unit/Ml Vial 3 Ml SUB-Q 5 unit AC LUZ Administration Levetiracetam 250 mg 09/07/20 10:00 09/09/20 23:02 Levetiracetam 500 Mg/5 Ml Oral Liqd PO 250 mg BID LUZ Administration Magnesium Hydroxide 30 ml 09/05/20 00:06 Magnesium Hydroxide (Mom) Oral Liqd Udc PO Q4H PRN Constipation Morphine Sulfate 2 mg 09/05/20 00:06 Morphine 2 Mg/1 Ml Inj IV Q4H PRN Pain, Moderate (4-6) Ondansetron HCl 4 mg 09/05/20 00:06 Ondansetron 4 Mg/2 Ml Inj IV Q8H PRN Nausea And Vomiting Pantoprazole Sodium 40 mg 09/10/20 07:30 Pantoprazole 40 Mg Tab PO QDAC LUZ Sevelamer Carbonate 2,400 mg 09/07/20 08:00 09/09/20 16:40 Sevelamer Carbonate 800 Mg Tab PO 2,400 mg TIDWM LUZ Administration Sodium Chloride 10 ml 09/05/20 10:00 09/09/20 23:10 Sodium Chloride 0.9% 10 Ml Flush Syringe IV 10 ml BID LUZ Administration Sodium Chloride 10 ml 09/05/20 00:06 Sodium Chloride 0.9% 10 Ml Flush Syringe IV PRN PRN LINE FLUSH Thiamine HCl 100 mg 09/07/20 10:00 09/09/20 10:38 Thiamine 100 Mg Tab PO 100 mg DAILY LUZ Administration Nutrition/Malnutrition Assess - Dietary Evaluation Nutrition/Malnutrition Findings: Nutrition Notes Start: 09/05/20 10:45 Freq: Status: Active Protocol: Document 09/09/20 15:13 NHALL (Rec: 09/09/20 15:46 NHALL [id number]) Nutrition Notes Initial or Follow up Assessment Current Diagnosis CKD (stage V CKD),Diabetes Other Pertinent Diagnosis COVID-19 (+), Dementia, Seizure D/O Current Diet Renal/Cardiac/Consistent CHO Labs/Tests BUN 75 Cr 6.6 POC Glu range since admission: 53-289 Pertinent Medications Vit C, Sensipar, Aricept, Folic acid, Lantus, Protonix, Renvela, Thiamine Height 5 ft 7 in Weight 55.3 kg [place] Body Weight (kg) 67.27 BMI 19.1 Weight change and time frame Estimated Ht before amputation : 67in (unable to reach pt or family member via phone) Subjective/Other Information 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 He has consumed 88% of meals since last assessment. Pt not appropriate for diet education at this time. Percent of energy/protein needs met: 100% energy and pro Burn Absent Trauma Absent Current % PO Good (75-100%) Minimum of two criteria No #1 Nutrition Diagnosis Increased nutrient needs ( specify in comment below) Comments: protein Etiology increased demands of wound healing As Evidenced by Signs and Symptoms pt with small sacral wound Is patient on ventilator? No Is Patient Ambulatory and/or Out of Bed No REE-([facility]-confined to bed) 1579.236 Kcal/Kg value to use for calculation 33 Approximate Energy Requirements Using 1825 kcal/Kg Calculation Used for Recommendations Kcal/kg Additional Notes Pro needs >1.2g/kg: >66g/day Fluid needs 1-1.5L/day Nutrition Intervention Change Diet Order: Continue current diet order Goal #1 PO intakes to meet at least 75 % energy and pro needs Goal #2 Wt maintenance Anticipated Discharge Needs: None identified at this time Follow-Up By: 09/17/20 Additional Comments F/U: stable intakes, wt
[2020-09-10] MEDS: INSULIN LISPRO 100 UNIT/ML VIAL 3 mL SUB-Q SCH ×7 (13:51→22:10)
[2020-09-10] MEDS: SEVELAMER CARBONATE 800 MG TAB PO SCH ×3 (13:52→16:58)
[2020-09-10] MEDS: ASPIRIN 81 MG TAB CHEW PO SCH (13:52)
[2020-09-10] MEDS ORDERED: MIDODRINE 5 MG TAB PO SCH (14:09)
--- NOTE | 2020-09-10 14:19 | Progress Note ---
Assessment and Plan 1. ESRD: Patient is on maintenance hemodialysis three times a week, TTS schedule. Missed HD on 09/02 and 09/04. Hemodialysis: 09/05, 09/07, 09/10. 2. FEN: Hypocalcemia, Cinacalcet stopped, monitor. Hyperkalemia, HD today. Monitor. 3. Anemia: Epogen as needed. Monitor. 4. COVID infection: CXR normal. No hypoxia. Seen by ID. 5. GI bleed: GI consulted. 6. Hyperparathyroidism: Cinacalcet stopped due to hypocalcemia. Start on Calcitriol. 7. PVD: S/p b/l LE amputation. 8. DM type 2. 9. Seizure disorder. Subjective: Patient seen and examined at the bedside. Patient was actively vomiting at the time of eval. Per RN (present at the bedside) pt had large dark stool. Examination: General appearance: well-developed, appears stated age HEENT: ATNC, PERRL Neck: trachea midline Respiratory: Clear to Auscultation Heart: regular, S1S2, no murmur Abdomen: soft, normoactive bowel sounds, not tender, not distended Integumentary: no obvious rash Neurologic: alert, confusion noted, oriented to self, moving extremities Ext: no edema, R AKA, L BKA Hemodialysis access: R FA AVF Subjective Date of service: 09/10/20 Objective - Vital Signs Vital signs: Vital Signs - 12hr 09/10/20 09/10/20 09/10/20 04:34 09:00 09:15 Temperature 98.9 F 98.3 F Pulse Rate 94 H 110 H 110 H Respiratory 20 16 Rate Blood Pressure 143/66 110/66 110/66 O2 Sat by Pulse 95 Oximetry 09/10/20 09/10/20 09/10/20 09:30 09:45 10:00 Temperature Pulse Rate 110 H 103 H 100 H Respiratory Rate Blood Pressure 93/54 103/62 110/62 O2 Sat by Pulse Oximetry 09/10/20 09/10/20 09/10/20 10:15 10:30 10:45 Temperature Pulse Rate 104 H 112 H 108 H Respiratory Rate Blood Pressure 108/60 100/58 108/61 O2 Sat by Pulse Oximetry 09/10/20 09/10/20 09/10/20 11:00 11:15 11:30 Temperature Pulse Rate 110 H 119 H 118 H Respiratory Rate Blood Pressure 103/65 92/55 101/66 O2 Sat by Pulse Oximetry 09/10/20 09/10/20 09/10/20 11:45 12:00 12:15 Temperature Pulse Rate 112 H 110 H 98 H Respiratory Rate Blood Pressure 94/60 103/58 113/62 O2 Sat by Pulse Oximetry 09/10/20 12:30 Temperature 98.3 F Pulse Rate 98 H Respiratory 16 Rate Blood Pressure 113/62 O2 Sat by Pulse Oximetry - Lab 09/10/20 14:41 09/10/20 04:51 Most recent lab results Calcium 9.0 mg/dL (8.4-10.2) 09/10/20 04:51 Medications & Allergies - Medications Allergies/Adverse Reactions: Allergies Penicillins Allergy (Verified 07/11/19 17:31) Unknown Home Medications: Home Medications Medication Instructions Recorded Confirmed Last Taken Type diphenhydrAMINE [Benadryl CAP] 25 mg PO Q6HR PRN 12/27/16 09/04/20 05/24/19 History Insulin Lispro [Humalog 100 See Protocol SQ AC 02/14/17 09/04/20 05/22/19 History UNITS/ML Kwikpen] Donepezil HCl 10 mg PO QHS 11/10/18 09/04/20 05/25/19 History Losartan Potassium 100 mg PO QHS 11/10/18 09/04/20 05/25/19 History Metoprolol Tartrate 75 mg PO BID 11/10/18 09/04/20 05/25/19 History Sevelamer Carbonate 2,400 mg PO TIDWM 11/10/18 09/04/20 05/25/19 History Epoetin Darvin 10,000 Unit [Procrit] 10,000 unit IJ PRN 07/11/19 09/04/20 Unknown History ALBUTEROL NEB's [Proventil 0.083% 2.5 mg IH Q4HRT PRN #30 nebu 11/07/19 09/04/20 Unknown Rx NEBS] Acetaminophen [Acetaminophen TAB] 1 tab PO Q4HR PRN #15 11/07/19 09/04/20 Unknown Rx Ascorbic Acid [Vitamin C] 500 mg PO BID #60 tablet 11/07/19 09/04/20 Unknown Rx Aspirin [Aspirin BABY CHEW TAB] 81 mg PO QDAY #30 tab.chew 11/07/19 09/04/20 Unknown Rx AtorvaSTATin [Lipitor] 40 mg PO QHS #30 tablet 11/07/19 09/04/20 Unknown Rx Cinacalcet [Sensipar] 30 mg PO QDAY #30 tablet 11/07/19 09/04/20 Unknown Rx Ferrous Sulfate [Feosol 325 MG tab] 325 mg PO BID #60 tablet 11/07/19 09/04/20 Unknown Rx Folic Acid [Folvite] 1 mg PO DAILY #30 tablet 11/07/19 09/04/20 Unknown Rx Insulin Glargine [Lantus VIAL] 20 units SUB-Q QHS units 11/07/19 09/04/20 Unknown Rx Pantoprazole [Protonix TAB] 40 mg PO QDAY #15 tablet 11/07/19 09/04/20 Unknown Rx Thiamine [Vitamin B-1] 100 mg PO DAILY #30 tablet 11/07/19 09/04/20 Unknown Rx amLODIPine 10 mg PO QHS #30 tab 11/07/19 09/04/20 05/25/19 Rx bisacodyL [Dulcolax tab] 10 mg PO QDAY PRN #30 tablet 11/07/19 09/04/20 Unknown Rx cloNIDine-TTS PATCH [Catapres-Tts 0.1 mg TD Tu #4 patch 11/07/19 09/04/20 Unknown Rx 0.1MG Patch] levETIRAcetam [Keppra TAB] 250 mg PO BID #30 tablet 11/07/19 09/04/20 05/25/19 Rx Active Medications: Generic Name Dose Route Start Last Admin Trade Name Freq PRN Reason Stop Dose Admin Acetaminophen 650 mg 09/05/20 00:06 Acetaminophen 325 Mg Tab PO Q4H PRN Pain MILD(1-3)/Fever >100.5/DINERO Albuterol 2.5 mg 09/06/20 22:19 Albuterol 2.5 Mg/3 Ml Nebu IH Q4HRT PRN Shortness Of Breath Apixaban 2.5 mg 09/06/20 22:00 09/09/20 23:01 Apixaban 2.5 Mg Tab PO 2.5 mg Q12HR LUZ Administration Protocol Ascorbic Acid 500 mg 09/07/20 10:00 09/09/20 23:01 Ascorbic Acid 500 Mg Tab PO 500 mg BID LUZ Administration Aspirin 81 mg 09/07/20 10:00 09/10/20 13:52 Aspirin 81 Mg Tab Chew PO Not Given QDAY LUZ Atorvastatin Calcium 40 mg 09/07/20 22:00 09/09/20 23:01 Atorvastatin 40 Mg Tab PO 40 mg QHS LUZ Administration Bisacodyl 10 mg 09/06/20 22:19 Bisacodyl 5 Mg Tab PO QDAY PRN Constipation Dextrose 50 ml 09/05/20 00:06 Dextrose 50% In Water (25gm) 50 Ml Syringe IV Q30MIN PRN Hypoglycemia Protocol Donepezil HCl 10 mg 09/07/20 22:00 09/09/20 23:02 Donepezil 10 Mg Tab PO 10 mg QHS LUZ Administration Epoetin Darvin 10,000 unit 09/06/20 20:24 09/07/20 17:09 Epoetin Darvin 10,000 Unit/1 Ml Inj SUB-Q 10,000 unit CORBY PRN Administration hemodialysis Folic Acid 1 mg 09/07/20 10:00 09/09/20 10:38 Folic Acid 1 Mg Tab PO 1 mg DAILY LUZ Administration Heparin Sodium (Porcine) 3,000 unit 09/05/20 08:28 09/07/20 15:34 Heparin 10,000 Units/10 Ml Vial IV 3,000 unit CORBY PRN Administration hemodialysis Sodium Chloride 100 mls @ 999 mls/hr 09/05/20 08:28 Nacl 0.9% IV CORBY PRN Hypotension Insulin Glargine 10 units 09/07/20 22:00 09/09/20 23:49 Insulin Glargine 100 Units/Ml SUB-Q 10 units QHS LUZ Administration Insulin Human Lispro 0 unit 09/05/20 07:30 09/10/20 13:51 Insulin Lispro 100 Unit/Ml Vial 3 Ml SUB-Q Not Given ACHS [facility] Protocol Insulin Human Lispro 5 unit 09/07/20 07:30 09/10/20 13:51 Insulin Lispro 100 Unit/Ml Vial 3 Ml SUB-Q Not Given AC [facility] Levetiracetam 250 mg 09/07/20 10:00 09/09/20 23:02 Levetiracetam 500 Mg/5 Ml Oral Liqd PO 250 mg BID LUZ Administration Magnesium Hydroxide 30 ml 09/05/20 00:06 Magnesium Hydroxide (Mom) Oral Liqd Udc PO Q4H PRN Constipation Midodrine 5 mg 09/10/20 14:30 Midodrine 5 Mg Tab PO TID@0800,1200,1700 LUZ Morphine Sulfate 2 mg 09/05/20 00:06 Morphine 2 Mg/1 Ml Inj IV Q4H PRN Pain, Moderate (4-6) Ondansetron HCl 4 mg 09/05/20 00:06 Ondansetron 4 Mg/2 Ml Inj IV Q8H PRN Nausea And Vomiting Pantoprazole Sodium 40 mg 09/10/20 07:30 Pantoprazole 40 Mg Tab PO QDAC LUZ Sevelamer Carbonate 2,400 mg 09/07/20 08:00 09/10/20 13:52 Sevelamer Carbonate 800 Mg Tab PO Not Given TIDWM LUZ Sodium Chloride 10 ml 09/05/20 10:00 09/09/20 23:10 Sodium Chloride 0.9% 10 Ml Flush Syringe IV 10 ml BID LUZ Administration Sodium Chloride 10 ml 09/05/20 00:06 Sodium Chloride 0.9% 10 Ml Flush Syringe IV PRN PRN LINE FLUSH Thiamine HCl 100 mg 09/07/20 10:00 09/09/20 10:38 Thiamine 100 Mg Tab PO 100 mg DAILY LUZ Administration
[2020-09-10] MEDS ORDERED: SODIUM CHLORIDE 0.9% 500 ML 500 ML IV NR (14:55)
[2020-09-10] MEDS ORDERED: SODIUM CHLORIDE 0.9% 1000 ML 250 ML IV SCH (15:00)
[2020-09-10] MEDS: APIXABAN 2.5 MG TAB PO SCH (15:21)
[2020-09-10] MEDS: levETIRAcetam 500 MG/5 ML ORAL LIQD PO SCH ×2 (15:21→21:16)
[2020-09-10] MEDS: THIAMINE 100 MG TAB PO SCH (15:22)
[2020-09-10] MEDS: FOLIC ACID 1 MG TAB PO SCH (15:22)
[2020-09-10] MEDS: ASCORBIC ACID 500 MG TAB PO SCH ×2 (15:23→21:17)
[2020-09-10] MEDS ORDERED: SODIUM CHLORIDE 0.9% 250ML 250 ML IV ONE (15:30)
[2020-09-10] MEDS: MIDODRINE 5 MG TAB PO SCH ×2 (15:32→16:58)
[2020-09-10 16:02] LABS: Hematocrit 17.3 % (35.5-45.6); Hemoglobin 5.4 gm/dl (11.8-15.2)
--- NOTE | 2020-09-10 17:55 | Gastroenterology Consultation ---
History of Present Illness - Reason for Consult Consult date: 09/10/20 GI bleed Requesting physician: MARC LINARES - History of Present Illness This is a 60 yo male with pmh of dementia, DM, PVD, ESRD on HD admitted on 09/04/2020 from [facility] for COVID-19 and for HD. Patient has been awaiting outpatient HD arrangement due to COVID status but has remained asymptomatic. GI consulted today for 2 episode of melena. Per nursing, patient had two black stools today. H/H checked at noon with hgb down to 5.4 from 9 on 09/09/2020. PRBC transfusion ordered and awaiting on transfusion. Patient not able to give history and confused at baseline. He had one episode of brown NBNB emesis this morning. Patient has been on eliquis bid during this admission but unclear indication for the anticoagulation. Medication list reviewed. Past History Past Medical History: anemia, dialysis, ESRD, GERD, hypertension, PVD, seizures, other (Kidney stones, dementia,Right AV shunt.) Past Surgical History: Other (Left BKA,Right AKA) Social history: no significant social history Family history: no significant family history Medications and Allergies Allergies Allergy/AdvReac Type Severity Reaction Status Date / Time Penicillins Allergy Unknown Verified 07/11/19 17:31 Home Medications Medication Instructions Recorded Confirmed Last Taken Type diphenhydrAMINE [Benadryl CAP] 25 mg PO Q6HR PRN 12/27/16 09/04/20 05/24/19 History Insulin Lispro [Humalog 100 See Protocol SQ AC 02/14/17 09/04/20 05/22/19 History UNITS/ML Kwikpen] Donepezil HCl 10 mg PO QHS 11/10/18 09/04/20 05/25/19 History Losartan Potassium 100 mg PO QHS 11/10/18 09/04/20 05/25/19 History Metoprolol Tartrate 75 mg PO BID 11/10/18 09/04/20 05/25/19 History Sevelamer Carbonate 2,400 mg PO TIDWM 11/10/18 09/04/20 05/25/19 History Epoetin Darvin 10,000 Unit [Procrit] 10,000 unit IJ PRN 07/11/19 09/04/20 Unknown History ALBUTEROL NEB's [Proventil 0.083% 2.5 mg IH Q4HRT PRN #30 nebu 11/07/19 09/04/20 Unknown Rx NEBS] Acetaminophen [Acetaminophen TAB] 1 tab PO Q4HR PRN #15 11/07/19 09/04/20 Unknown Rx Ascorbic Acid [Vitamin C] 500 mg PO BID #60 tablet 11/07/19 09/04/20 Unknown Rx Aspirin [Aspirin BABY CHEW TAB] 81 mg PO QDAY #30 tab.chew 11/07/19 09/04/20 U nknown Rx AtorvaSTATin [Lipitor] 40 mg PO QHS #30 tablet 11/07/19 09/04/20 Unknown Rx Cinacalcet [Sensipar] 30 mg PO QDAY #30 tablet 11/07/19 09/04/20 Unknown Rx Ferrous Sulfate [Feosol 325 MG tab] 325 mg PO BID #60 tablet 11/07/19 09/04/20 Unknown Rx Folic Acid [Folvite] 1 mg PO DAILY #30 tablet 11/07/19 09/04/20 Unknown Rx Insulin Glargine [Lantus VIAL] 20 units SUB-Q QHS units 11/07/19 09/04/20 Unknown Rx Pantoprazole [Protonix TAB] 40 mg PO QDAY #15 tablet 11/07/19 09/04/20 Unknown Rx Thiamine [Vitamin B-1] 100 mg PO DAILY #30 tablet 11/07/19 09/04/20 Unknown Rx amLODIPine 10 mg PO QHS #30 tab 11/07/19 09/04/20 05/25/19 Rx bisacodyL [Dulcolax tab] 10 mg PO QDAY PRN #30 tablet 11/07/19 09/04/20 Unknown Rx cloNIDine-TTS PATCH [Catapres-Tts 0.1 mg TD Tu #4 patch 11/07/19 09/04/20 Unknown Rx 0.1MG Patch] levETIRAcetam [Keppra TAB] 250 mg PO BID #30 tablet 11/07/19 09/04/20 05/25/19 Rx Active Meds: Active Medications Acetaminophen (Acetaminophen 325 Mg Tab) 650 mg PO Q4H PRN PRN Reason: Pain MILD(1-3)/Fever >100.5/DINERO Albuterol (Albuterol 2.5 Mg/3 Ml Nebu) 2.5 mg IH Q4HRT PRN PRN Reason: Shortness Of Breath Ascorbic Acid (Ascorbic Acid 500 Mg Tab) 500 mg PO BID [facility] Last Admin: 09/10/20 15:23 Dose: 500 mg Documented by: Aspirin (Aspirin 81 Mg Tab Chew) 81 mg PO QDAY [facility] Last Admin: 09/10/20 13:52 Dose: Not Given Documented by: Atorvastatin Calcium (Atorvastatin 40 Mg Tab) 40 mg PO QHS [facility] Last Admin: 09/09/20 23:01 Dose: 40 mg Documented by: Bisacodyl (Bisacodyl 5 Mg Tab) 10 mg PO QDAY PRN PRN Reason: Constipation Dextrose (Dextrose 50% In Water (25gm) 50 Ml Syringe) 50 ml IV Q30MIN PRN; Protocol PRN Reason: Hypoglycemia Donepezil HCl (Donepezil 10 Mg Tab) 10 mg PO QHS [facility] Last Admin: 09/09/20 23:02 Dose: 10 mg Documented by: Epoetin Darvin (Epoetin Darvin 10,000 Unit/1 Ml Inj) 10,000 unit SUB-Q CORBY PRN PRN Reason: hemodialysis Last Admin: 09/07/20 17:09 Dose: 10,000 unit Documented by: Folic Acid (Folic Acid 1 Mg Tab) 1 mg PO DAILY [facility] Last Admin: 09/10/20 15:22 Dose: 1 mg Documented by: Heparin Sodium (Porcine) (Heparin 10,000 Units/10 Ml Vial) 3,000 unit IV CORBY PRN PRN Reason: hemodialysis Last Admin: 09/07/20 15:34 Dose: 3,000 unit Documented by: Sodium Chloride (Nacl 0.9%) 100 mls @ 999 mls/hr IV CORBY PRN PRN Reason: Hypotension Sodium Chloride (Nacl 0.9% 500 Ml) 500 mls @ 0 mls/hr IV ONCE NR Stop: 09/11/20 14:54 Pantoprazole Sodium 80 mg/ (Sodium Chloride) 100 mls @ 10 mls/hr IV DIRECT [facility] Insulin Glargine (Insulin Glargine 100 Units/Ml) 10 units SUB-Q QHS [facility] Last Admin: 09/09/20 23:49 Dose: 10 units Documented by: Insulin Human Lispro (Insulin Lispro 100 Unit/Ml Vial 3 Ml) 0 unit SUB-Q ACHS [facility]; Protocol Last Admin: 09/10/20 16:57 Dose: 3 unit Documented by: Insulin Human Lispro (Insulin Lispro 100 Unit/Ml Vial 3 Ml) 5 unit SUB-Q AC [facility] Last Admin: 09/10/20 16:57 Dose: Not Given Documented by: Levetiracetam (Levetiracetam 500 Mg/5 Ml Oral Liqd) 250 mg PO BID [facility] Last Admin: 09/10/20 15:21 Dose: 250 mg Documented by: Magnesium Hydroxide (Magnesium Hydroxide (Mom) Oral Liqd Udc) 30 ml PO Q4H PRN PRN Reason: Constipation Midodrine (Midodrine 5 Mg Tab) 5 mg PO TID@0800,1200,1700 [facility] Last Admin: 09/10/20 16:58 Dose: Not Given Documented by: Morphine Sulfate (Morphine 2 Mg/1 Ml Inj) 2 mg IV Q4H PRN PRN Reason: Pain, Moderate (4-6) Ondansetron HCl (Ondansetron 4 Mg/2 Ml Inj) 4 mg IV Q8H PRN PRN Reason: Nausea And Vomiting Last Admin: 09/10/20 15:21 Dose: 4 mg Documented by: Sevelamer Carbonate (Sevelamer Carbonate 800 Mg Tab) 2,400 mg PO TIDWM [facility] Last Admin: 09/10/20 16:58 Dose: Not Given Documented by: Sodium Chloride (Sodium Chloride 0.9% 10 Ml Flush Syringe) 10 ml IV BID [facility] Last Admin: 09/10/20 15:22 Dose: 10 ml Documented by: Sodium Chloride (Sodium Chloride 0.9% 10 Ml Flush Syringe) 10 ml IV PRN PRN PRN Reason: LINE FLUSH Thiamine HCl (Thiamine 100 Mg Tab) 100 mg PO DAILY [facility] Last Admin: 09/10/20 15:22 Dose: 100 mg Documented by: Review of Systems - Review of Systems ROS unobtainable: due to mental status All systems: negative Exam - Constitutional Vital Signs: Temp Pulse Resp BP Pulse Ox 97.6 F 108 H 20 96/56 95 09/10/20 17:45 09/10/20 17:45 09/10/20 17:45 09/10/20 17:45 09/10/20 17:45 General appearance: no acute distress - EENT ENT: hearing intact - Respiratory Respiratory effort: normal - Cardiovascular Rhythm: regular Heart Sounds: Present: S1 & S2 - Gastrointestinal General gastrointestinal: Present: soft, non-tender, non-distended - Integumentary Integumentary: Present: clear, warm - Neurologic Neurological: disoriented - Labs CBC & Chem 7: 09/10/20 14:41 09/10/20 04:51 Lab Results: Laboratory Results - last 24 hr 09/09/20 09/10/20 09/10/20 23:44 04:51 04:51 Hgb Hct Sodium 139 Potassium 5.7 H Chloride 100.0 Carbon Dioxide 26 Anion Gap 19 BUN 110 H Creatinine 7.8 H Estimated GFR 9 BUN/Creatinine Ratio 14 Glucose 210 H POC Glucose 151 H Lactic Acid Calcium 9.0 PTH Intact 1025 H Blood Type Antibody Screen Crossmatch 09/10/20 09/10/20 09/10/20 12:28 14:40 14:41 Hgb 5.4 L* D Hct 17.3 L* D Sodium Potassium Chloride Carbon Dioxide Anion Gap BUN Creatinine Estimated GFR BUN/Creatinine Ratio Glucose POC Glucose 201 H Lactic Acid Calcium PTH Intact Blood Type B POSITIVE Antibody Screen Negative Crossmatch See Detail 09/10/20 09/10/20 15:46 16:08 Hgb Hct Sodium Potassium Chloride Carbon Dioxide Anion Gap BUN Creatinine Estimated GFR BUN/Creatinine Ratio Glucose POC Glucose 206 H Lactic Acid 3.10 H* Calcium PTH Intact Blood Type Antibody Screen Crossmatch Assessment and Plan 60 yo male with pmh of dementia, DM, PVD, ESRD on HD admitted on 09/04/2020 from [facility] for COVID-19 and for HD. Patient has been awaiting outpatient HD arrangement due to COVID status but has remained asymptomatic. GI consulted today for 2 episode of melena. # Melena # Upper GI bleed - new onset of melena today. - HD stable - Hgb down to 5.4 from 9. Awaiting PRBC transfusion. - h/o EGD in 2017 with esophagitis Rec - make NPO - PPI IV drip. ordered - hold eliquis. - monitor H/H serially and transfuse with Hgb goal >7. - if patient has recurrent bleeding leading to hemodynamic instability that requires emergent endoscopy, will need to transfer to outside facility due to GI endoscopy lab not available for emergent cases. - updated family, brother on the phone. - Patient Problems (1) GI bleed Current Visit: No Status: Acute Qualifiers: GI bleed type/associated pathology: unspecified gastrointestinal hemorrhage type Qualified Code(s): K92.2 - Gastrointestinal hemorrhage, unspecified
[2020-09-10] MEDS ORDERED: SODIUM CHLORIDE 0.9% 500 ML 500 ML IV SCH (19:43)
[2020-09-10] MEDS: DONEPEZIL 10 MG TAB PO SCH (21:16)
[2020-09-10] MEDS: INSULIN GLARGINE 100 UNITS/ML SUB-Q SCH (22:10)
[2020-09-10] MEDS: PANTOPRAZOLE 80 MG in SODIUM CHLORIDE 0.9% 100 ML IV SCH (22:55)
--- NOTE | 2020-09-11 07:59 | Progress Note ---
Assessment and Plan Assessment and plan: -- ESRD (end stage renal disease) on dialysis Laser Set Up Operator consulted for dialysis. -- Hyperkalemia Patient has had Kayexalate. Will monitor potassium level. -- Dementia continue routine home medications. --Diabetes mellitus type 2 We will monitor Accu-Cheks. resume home insulin dose -- Positive COVID-19 Patient was diagnosed with COVID-19 about 6 days ago before admission. Discussed with ID - no additional treatment needed --Seizure disorder, cont keppra -- DVT prophylaxis Patient placed on subcutaneous heparin. -- Full code status 09/05: Patient is positive for COVID but asymptomatic, no additional treatment needed per ID. CM to arrange to outpt HD where COVID +ve patient could be accommodate. Planned to d/c back to SNF. 09/06: Patient waiting on SNF and HD set up. cont current care 09/07: Getting HD at bedside. Per CM note he cannot resume his outpatient dialysis until he is negative for Covid. Continue to provide supportive care. 09/08; patient need a negative Covid test to resume outpatient dialysis, will order repeat Covid test tomorrow 09/09: Pt covid test is positive. [facility] cannot accept pt back at this time. Referral faxed to [facility] for placement. Will continue to follow. 09/10/2020; patient's Covid test is positive yesterday. [facility] cannot accept pt back at this time. Referral faxed to [facility] for placement. Will continue to follow. Patient had dark stool and I ordered a stat H&H, fecal occult blood test, GI consult. Patient has low blood pressure, but he just finished his dialysis and will continue to monitor. If his blood pressure continues to be low we will give him midodrine. 09/11/2020; patient has GI bleed with severe anemia, hemoglobin was 5.4 yesterday and transfused 2 units of blood. CBC was ordered to be done at 4 AM this morning but was not done. I ordered stat CBC. GI consulted and will see the patient today. Will monitor H&H and if needed will transfuse the patient. Nephrology is following for dialysis. Patient has hypertension and was given 250 mL of NS, lactic acid level was elevated yesterday. Likely due to hypotension and GI bleed. Will monitor and adjust as needed. Patient's repeat hemoglobin is 6.4, will transfuse 2 more units of blood. Patient's potassium is 6.[address] Marie is going to do dialysis and in the meantime I will give him calcium gluconate and do EKG. Patient has lactic acidosis improving from yesterday. Patient's prognosis is poor. History Interval history: Patient was seen and evaluated this morning Patient is having dark stools Hospitalist Physical - Physical exam Narrative exam: Not in cardiopulmonary distress. The patient appeared well nourished and normally developed. Vital signs as documented. Head exam is unremarkable. No scleral icterus . Neck is without jugular venous distension, thyromegaly, or carotid bruits. Lungs are clear to auscultation. Cardiac exam reveals regular rate and Rhythm. Abdominal exam reveals normal bowel sounds, nontender, no organomegaly. Extremities left BKA, right AKA. 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 - Constitutional Vitals: Temp Pulse Resp BP Pulse Ox 97.7 F 101 H 17 144/99 92 09/11/20 06:15 09/11/20 06:15 09/11/20 06:15 09/11/20 06:15 09/11/20 06:15 General appearance: Present: no acute distress Results - Labs CBC & Chem 7: 09/11/20 11:20 09/11/20 11:20 Labs: Laboratory Last Values WBC 3.8 K/mm3 (4.5-11.0) L 09/09/20 08:12 RBC 3.21 M/mm3 (3.65-5.03) L 09/09/20 08:12 Hgb 5.4 gm/dl (11.8-15.2) L* D 09/10/20 14:41 Hct 17.3 % (35.5-45.6) L* D 09/10/20 14:41 MCV 89 fl (84-94) 09/09/20 08:12 MCH 28 pg (28-32) 09/09/20 08:12 MCHC 32 % (32-34) 09/09/20 08:12 RDW 15.0 % (13.2-15.2) 09/09/20 08:12 Plt Count 177 K/mm3 (140-440) 09/09/20 08:12 Lymph % (Auto) 29.4 % (13.4-35.0) 09/09/20 08:12 [place] % (Auto) 8.9 % (0.0-7.3) H 09/09/20 08:12 Eos % (Auto) 6.0 % (0.0-4.3) H 09/09/20 08:12 Baso % (Auto) 0.7 % (0.0-1.8) 09/09/20 08:12 Lymph # (Auto) 1.1 K/mm3 (1.2-5.4) L 09/09/20 08:12 [place] # (Auto) 0.3 K/mm3 (0.0-0.8) 09/09/20 08:12 Eos # (Auto) 0.2 K/mm3 (0.0-0.4) 09/09/20 08:12 Baso # (Auto) 0.0 K/mm3 (0.0-0.1) 09/09/20 08:12 Seg Neutrophils % 55.0 % (40.0-70.0) 09/09/20 08:12 Seg Neutrophils # 2.1 K/mm3 (1.8-7.7) 09/09/20 08:12 PT 14.6 Sec. (12.2-14.9) 09/06/20 04:35 INR 1.15 (0.87-1.13) H 09/06/20 04:35 D-Dimer 918.99 ng/mlDDU (0-234) H 09/05/20 14:37 Sodium 139 mmol/L (137-145) 09/10/20 04:51 Potassium 5.7 mmol/L (3.6-5.0) H 09/10/20 04:51 Chloride 100.0 mmol/L (98-107) 09/10/20 04:51 Carbon Dioxide 26 mmol/L (22-30) 09/10/20 04:51 Anion Gap 19 mmol/L 09/10/20 04:51 BUN 110 mg/dL (9-20) H 09/10/20 04:51 Creatinine 7.8 mg/dL (0.8-1.3) H 09/10/20 04:51 Estimated GFR 9 ml/min 09/10/20 04:51 BUN/Creatinine Ratio 14 % 09/10/20 04:51 Glucose 210 mg/dL (75-100) H 09/10/20 04:51 POC Glucose 138 mg/dL (70-105) H 09/10/20 22:09 Lactic Acid 3.10 mmol/L (0.7-2.0) H* 09/10/20 16:08 Calcium 9.0 mg/dL (8.4-10.2) 09/10/20 04:51 Ferritin 447.5 ng/mL (30.0-300.0) H 09/05/20 14:37 Lactate Dehydrogenase 163 units/L (91-180) 09/05/20 14:37 C-Reactive Protein 0.30 mg/dL (0.00-1.30) 09/05/20 14:37 Procalcitonin 0.19 ng/mL (<0.15) 09/05/20 14:37 PTH Intact 1025 pg/mL (15-65) H 09/10/20 04:51 Coronavirus (PCR) Positive (Negative) A 09/09/20 Unknown Hepatitis A IgM Ab Non-reactive (NonReactive) 09/05/20 13:39 Hep Bs Antigen Non-reactive (Negative) 09/05/20 13:39 Hep B Core IgM Ab Non-reactive (NonReactive) 09/05/20 13:39 Hepatitis C Antibody Non-reactive (NonReactive) 09/05/20 13:39 Blood Type B POSITIVE 09/10/20 14:40 Antibody Screen Negative 09/10/20 14:40 Crossmatch See Detail 09/10/20 14:40 Microbiology: Microbiology 09/10/20 16:50 Stool Stool Occult Blood (VERNON) - Final 09/10/20 16:08 Peripheral/Venous Blood Culture - Preliminary Culture in Progress 09/10/20 16:08 Peripheral/Venous Blood Culture - Preliminary Culture in Progress Snider/IV: Voiding Method Incontinent IV Catheter Type [Left Upper INT / Saline Lock arm] IV Catheter Type [Left Forearm Peripheral IV ] IV Catheter Type [Left Wrist] INT / Saline Lock IV Catheter Type [Left INT / Saline Lock Antecubital] IV Catheter Type [Right AV fistula Forearm] Active Medications - Current Medications Current Medications: Generic Name Dose Route Start Last Admin Trade Name Freq PRN Reason Stop Dose Admin Acetaminophen 650 mg 09/05/20 00:06 Acetaminophen 325 Mg Tab PO Q4H PRN Pain MILD(1-3)/Fever >100.5/DINERO Albuterol 2.5 mg 09/06/20 22:19 Albuterol 2.5 Mg/3 Ml Nebu IH Q4HRT PRN Shortness Of Breath Ascorbic Acid 500 mg 09/07/20 10:00 09/10/20 21:17 Ascorbic Acid 500 Mg Tab PO Not Given BID LUZ Aspirin 81 mg 09/07/20 10:00 09/10/20 13:52 Aspirin 81 Mg Tab Chew PO Not Given QDAY LUZ Atorvastatin Calcium 40 mg 09/07/20 22:00 09/10/20 21:17 Atorvastatin 40 Mg Tab PO Not Given QHS LUZ Bisacodyl 10 mg 09/06/20 22:19 Bisacodyl 5 Mg Tab PO QDAY PRN Constipation Calcitriol 0.5 mcg 09/11/20 10:00 Calcitriol 0.5 Mcg Cap PO QDAY LUZ Dextrose 50 ml 09/05/20 00:06 Dextrose 50% In Water (25gm) 50 Ml Syringe IV Q30MIN PRN Hypoglycemia Protocol Donepezil HCl 10 mg 09/07/20 22:00 09/10/20 21:16 Donepezil 10 Mg Tab PO Not Given QHS LUZ Epoetin Darvin 10,000 unit 09/06/20 20:24 09/07/20 17:09 Epoetin Darvin 10,000 Unit/1 Ml Inj SUB-Q 10,000 unit CORBY PRN Administration hemodialysis Folic Acid 1 mg 09/07/20 10:00 09/10/20 15:22 Folic Acid 1 Mg Tab PO 1 mg DAILY LUZ Administration Heparin Sodium (Porcine) 3,000 unit 09/05/20 08:28 09/07/20 15:34 Heparin 10,000 Units/10 Ml Vial IV 3,000 unit CORBY PRN Administration hemodialysis Sodium Chloride 100 mls @ 999 mls/hr 09/05/20 08:28 Nacl 0.9% IV CORBY PRN Hypotension Sodium Chloride 500 mls @ 0 mls/hr 09/10/20 14:55 Nacl 0.9% 500 Ml IV 09/11/20 14:54 ONCE NR As Directed Pantoprazole Sodium 80 mg/ 100 mls @ 10 mls/hr 09/10/20 17:00 09/10/20 22:55 Sodium Chloride IV 8 mg/hr DIRECT LUZ 10 mls/hr Administration 8 MG/HR Sodium Chloride 500 mls @ 0 mls/hr 09/10/20 19:43 09/11/20 02:51 Nacl 0.9% 500 Ml IV 50 mls/hr ONCE LUZ Administration As Directed Insulin Glargine 10 units 09/07/20 22:00 09/10/20 22:10 Insulin Glargine 100 Units/Ml SUB-Q Not Given QHS [facility] Insulin Human Lispro 0 unit 09/05/20 07:30 09/10/20 22:10 Insulin Lispro 100 Unit/Ml Vial 3 Ml SUB-Q Not Given ACHS [facility] Protocol Insulin Human Lispro 5 unit 09/07/20 07:30 09/10/20 16:57 Insulin Lispro 100 Unit/Ml Vial 3 Ml SUB-Q Not Given AC [facility] Levetiracetam 250 mg 09/07/20 10:00 09/10/20 21:16 Levetiracetam 500 Mg/5 Ml Oral Liqd PO Not Given BID [facility] Magnesium Hydroxide 30 ml 09/05/20 00:06 Magnesium Hydroxide (Mom) Oral Liqd Udc PO Q4H PRN Constipation Midodrine 5 mg 09/10/20 14:30 09/10/20 16:58 Midodrine 5 Mg Tab PO Not Given TID@0800,1200,1700 [facility] Morphine Sulfate 2 mg 09/05/20 00:06 Morphine 2 Mg/1 Ml Inj IV Q4H PRN Pain, Moderate (4-6) Ondansetron HCl 4 mg 09/05/20 00:06 09/10/20 15:21 Ondansetron 4 Mg/2 Ml Inj IV 4 mg Q8H PRN Administration Nausea And Vomiting Sevelamer Carbonate 2,400 mg 09/07/20 08:00 09/10/20 16:58 Sevelamer Carbonate 800 Mg Tab PO Not Given TIDWM LUZ Sodium Chloride 10 ml 09/05/20 10:00 09/10/20 22:10 Sodium Chloride 0.9% 10 Ml Flush Syringe IV 10 ml BID LUZ Administration Sodium Chloride 10 ml 09/05/20 00:06 Sodium Chloride 0.9% 10 Ml Flush Syringe IV PRN PRN LINE FLUSH Thiamine HCl 100 mg 09/07/20 10:00 09/10/20 15:22 Thiamine 100 Mg Tab PO 100 mg DAILY LUZ Administration Nutrition/Malnutrition Assess - Dietary Evaluation Nutrition/Malnutrition Findings: Nutrition Notes Start: 09/05/20 10:45 Freq: Status: Active Protocol: Document 09/09/20 15:13 TED (Rec: 09/09/20 15:46 TED [id number]) Nutrition Notes Initial or Follow up Assessment Current Diagnosis CKD (stage V CKD),Diabetes Other Pertinent Diagnosis COVID-19 (+), Dementia, Seizure D/O Current Diet Renal/Cardiac/Consistent CHO Labs/Tests BUN 75 Cr 6.6 POC Glu range since admission: 53-289 Pertinent Medications Vit C, Sensipar, Aricept, Folic acid, Lantus, Protonix, Renvela, Thiamine Height 5 ft 7 in Weight 55.3 kg [place] Body Weight (kg) 67.27 BMI 19.1 Weight change and time frame Estimated Ht before amputation : 67in (unable to reach pt or family member via phone) Subjective/Other Information 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 He has consumed 88% of meals since last assessment. Pt not appropriate for diet education at this time. Percent of energy/protein needs met: 100% energy and pro Burn Absent Trauma Absent Current % PO Good (75-100%) Minimum of two criteria No #1 Nutrition Diagnosis Increased nutrient needs ( specify in comment below) Comments: protein Etiology increased demands of wound healing As Evidenced by Signs and Symptoms pt with small sacral wound Is patient on ventilator? No Is Patient Ambulatory and/or Out of Bed No REE-([facility]-confined to bed) 1579.236 Kcal/Kg value to use for calculation 33 Approximate Energy Requirements Using 1825 kcal/Kg Calculation Used for Recommendations Kcal/kg Additional Notes Pro needs >1.2g/kg: >66g/day Fluid needs 1-1.5L/day Nutrition Intervention Change Diet Order: Continue current diet order Goal #1 PO intakes to meet at least 75 % energy and pro needs Goal #2 Wt maintenance Anticipated Discharge Needs: None identified at this time Follow-Up By: 09/17/20 Additional Comments F/U: stable intakes, wt
--- NOTE | 2020-09-11 08:33 | Progress Note ---
Assessment and Plan 1. ESRD: Patient is on maintenance hemodialysis three times a week, TTS schedule. Missed HD on 09/02 and 09/04. Hemodialysis: 09/05, 09/07, 09/10. 2. FEN: Hypocalcemia, Cinacalcet stopped, monitor. Hyperkalemia, K 6.2. Insulin - D50 ordered, spoke to RN. HD today. Monitor. 3. Anemia: Epogen as needed. Monitor. 4. COVID infection: CXR normal. No hypoxia. Seen by ID. 5. GI bleed: Seen by GI. 6. Anemia: 2/2 GI bleed. S/p 2 units of PRBC 09/10. 2 units of PRBC today with HD. 7. Hyperparathyroidism: Cinacalcet stopped due to hypocalcemia. Started on Calcitriol. 8. PVD: S/p b/l LE amputation. 9. DM type 2. 10. Seizure disorder. Subjective: Patient seen and examined at the bedside. Examination: General appearance: well-developed, appears stated age HEENT: ATNC, PERRL Neck: trachea midline Respiratory: Clear to Auscultation Heart: regular, S1S2, no murmur Abdomen: soft, normoactive bowel sounds, not tender, not distended Integumentary: no obvious rash Neurologic: alert, confusion noted, oriented to self, moving extremities Ext: no edema, R AKA, L BKA Hemodialysis access: R FA AVF Subjective Date of service: 09/11/20 Objective - Vital Signs Vital signs: Vital Signs - 12hr 09/10/20 09/10/20 09/11/20 21:00 22:00 03:30 Temperature 98.0 F 97.7 F Pulse Rate 95 H 95 H Respiratory 18 18 17 Rate Respiratory 18 Rate [no s/s] Blood Pressure 111/70 106/55 O2 Sat by Pulse 94 94 95 Oximetry 09/11/20 09/11/20 09/11/20 03:45 04:15 04:45 Temperature 97.7 F 97.8 F 98.2 F Pulse Rate 94 H 89 86 Respiratory 17 18 18 Rate Respiratory Rate [no s/s] Blood Pressure 101/52 108/69 108/58 O2 Sat by Pulse 93 95 94 Oximetry 09/11/20 09/11/20 09/11/20 05:15 05:18 05:45 Temperature 98.9 F 98.9 F 98.2 F Pulse Rate 92 H 65 94 H Respiratory 18 20 17 Rate Respiratory Rate [no s/s] Blood Pressure 110/48 110/48 97/58 O2 Sat by Pulse 94 88 95 Oximetry 09/11/20 06:15 Temperature 97.7 F Pulse Rate 101 H Respiratory 17 Rate Respiratory Rate [no s/s] Blood Pressure 144/99 O2 Sat by Pulse 92 Oximetry - Lab 09/11/20 11:20 09/11/20 11:20 Most recent lab results Calcium 9.0 mg/dL (8.4-10.2) 09/10/20 04:51 Medications & Allergies - Medications Allergies/Adverse Reactions: Allergies Penicillins Allergy (Verified 07/11/19 17:31) Unknown Home Medications: Home Medications Medication Instructions Recorded Confirmed Last Taken Type diphenhydrAMINE [Benadryl CAP] 25 mg PO Q6HR PRN 12/27/16 09/04/20 05/24/19 History Insulin Lispro [Humalog 100 See Protocol SQ AC 02/14/17 09/04/20 05/22/19 History UNITS/ML Kwikpen] Donepezil HCl 10 mg PO QHS 11/10/18 09/04/20 05/25/19 History Losartan Potassium 100 mg PO QHS 11/10/18 09/04/20 05/25/19 History Metoprolol Tartrate 75 mg PO BID 11/10/18 09/04/20 05/25/19 History Sevelamer Carbonate 2,400 mg PO TIDWM 11/10/18 09/04/20 05/25/19 History Epoetin Darvin 10,000 Unit [Procrit] 10,000 unit IJ PRN 07/11/19 09/04/20 Unknown History ALBUTEROL NEB's [Proventil 0.083% 2.5 mg IH Q4HRT PRN #30 nebu 11/07/19 09/04/20 Unknown Rx NEBS] Acetaminophen [Acetaminophen TAB] 1 tab PO Q4HR PRN #15 11/07/19 09/04/20 Unknown Rx Ascorbic Acid [Vitamin C] 500 mg PO BID #60 tablet 11/07/19 09/04/20 Unknown Rx Aspirin [Aspirin BABY CHEW TAB] 81 mg PO QDAY #30 tab.chew 11/07/19 09/04/20 Unknown Rx AtorvaSTATin [Lipitor] 40 mg PO QHS #30 tablet 11/07/19 09/04/20 Unknown Rx Cinacalcet [Sensipar] 30 mg PO QDAY #30 tablet 11/07/19 09/04/20 Unknown Rx Ferrous Sulfate [Feosol 325 MG tab] 325 mg PO BID #60 tablet 11/07/19 09/04/20 Unknown Rx Folic Acid [Folvite] 1 mg PO DAILY #30 tablet 11/07/19 09/04/20 Unknown Rx Insulin Glargine [Lantus VIAL] 20 units SUB-Q QHS units 11/07/19 09/04/20 Unknown Rx Pantoprazole [Protonix TAB] 40 mg PO QDAY #15 tablet 11/07/19 09/04/20 Unknown Rx Thiamine [Vitamin B-1] 100 mg PO DAILY #30 tablet 11/07/19 09/04/20 Unknown Rx amLODIPine 10 mg PO QHS #30 tab 11/07/19 09/04/20 05/25/19 Rx bisacodyL [Dulcolax tab] 10 mg PO QDAY PRN #30 tablet 11/07/19 09/04/20 Unknown Rx cloNIDine-TTS PATCH [Catapres-Tts 0.1 mg TD Tu #4 patch 11/07/19 09/04/20 Unknown Rx 0.1MG Patch] levETIRAcetam [Keppra TAB] 250 mg PO BID #30 tablet 11/07/19 09/04/20 05/25/19 Rx Active Medications: Generic Name Dose Route Start Last Admin Trade Name Freq PRN Reason Stop Dose Admin Acetaminophen 650 mg 09/05/20 00:06 Acetaminophen 325 Mg Tab PO Q4H PRN Pain MILD(1-3)/Fever >100.5/DINERO Albuterol 2.5 mg 09/06/20 22:19 Albuterol 2.5 Mg/3 Ml Nebu IH Q4HRT PRN Shortness Of Breath Ascorbic Acid 500 mg 09/07/20 10:00 09/10/20 21:17 Ascorbic Acid 500 Mg Tab PO Not Given BID LUZ Aspirin 81 mg 09/07/20 10:00 09/10/20 13:52 Aspirin 81 Mg Tab Chew PO Not Given QDAY LUZ Atorvastatin Calcium 40 mg 09/07/20 22:00 09/10/20 21:17 Atorvastatin 40 Mg Tab PO Not Given QHS LUZ Bisacodyl 10 mg 09/06/20 22:19 Bisacodyl 5 Mg Tab PO QDAY PRN Constipation Calcitriol 0.5 mcg 09/11/20 10:00 Calcitriol 0.5 Mcg Cap PO QDAY LUZ Dextrose 50 ml 09/05/20 00:06 Dextrose 50% In Water (25gm) 50 Ml Syringe IV Q30MIN PRN Hypoglycemia Protocol Donepezil HCl 10 mg 09/07/20 22:00 09/10/20 21:16 Donepezil 10 Mg Tab PO Not Given QHS LUZ Epoetin Darvin 10,000 unit 09/06/20 20:24 09/07/20 17:09 Epoetin Darvin 10,000 Unit/1 Ml Inj SUB-Q 10,000 unit CORBY PRN Administration hemodialysis Folic Acid 1 mg 09/07/20 10:00 09/10/20 15:22 Folic Acid 1 Mg Tab PO 1 mg DAILY LUZ Administration Heparin Sodium (Porcine) 3,000 unit 09/05/20 08:28 09/07/20 15:34 Heparin 10,000 Units/10 Ml Vial IV 3,000 unit CORBY PRN Administration hemodialysis Sodium Chloride 100 mls @ 999 mls/hr 09/05/20 08:28 Nacl 0.9% IV CORBY PRN Hypotension Sodium Chloride 500 mls @ 0 mls/hr 09/10/20 14:55 Nacl 0.9% 500 Ml IV 09/11/20 14:54 ONCE NR As Directed Pantoprazole Sodium 80 mg/ 100 mls @ 10 mls/hr 09/10/20 17:00 09/10/20 22:55 Sodium Chloride IV 8 mg/hr DIRECT LUZ 10 mls/hr Administration 8 MG/HR Sodium Chloride 500 mls @ 0 mls/hr 09/10/20 19:43 09/11/20 02:51 Nacl 0.9% 500 Ml IV 50 mls/hr ONCE LUZ Administration As Directed Insulin Glargine 10 units 09/07/20 22:00 09/10/20 22:10 Insulin Glargine 100 Units/Ml SUB-Q Not Given QHS LUZ Insulin Human Lispro 0 unit 09/05/20 07:30 09/10/20 22:10 Insulin Lispro 100 Unit/Ml Vial 3 Ml SUB-Q Not Given ACHS LUZ Protocol Insulin Human Lispro 5 unit 09/07/20 07:30 09/10/20 16:57 Insulin Lispro 100 Unit/Ml Vial 3 Ml SUB-Q Not Given AC [facility] Levetiracetam 250 mg 09/07/20 10:00 09/10/20 21:16 Levetiracetam 500 Mg/5 Ml Oral Liqd PO Not Given BID LUZ Magnesium Hydroxide 30 ml 09/05/20 00:06 Magnesium Hydroxide (Mom) Oral Liqd Udc PO Q4H PRN Constipation Midodrine 5 mg 09/10/20 14:30 09/10/20 16:58 Midodrine 5 Mg Tab PO Not Given TID@0800,1200,1700 [facility] Morphine Sulfate 2 mg 09/05/20 00:06 Morphine 2 Mg/1 Ml Inj IV Q4H PRN Pain, Moderate (4-6) Ondansetron HCl 4 mg 09/05/20 00:06 09/10/20 15:21 Ondansetron 4 Mg/2 Ml Inj IV 4 mg Q8H PRN Administration Nausea And Vomiting Sevelamer Carbonate 2,400 mg 09/07/20 08:00 09/10/20 16:58 Sevelamer Carbonate 800 Mg Tab PO Not Given TIDWM LUZ Sodium Chloride 10 ml 09/05/20 10:00 09/10/20 22:10 Sodium Chloride 0.9% 10 Ml Flush Syringe IV 10 ml BID LUZ Administration Sodium Chloride 10 ml 09/05/20 00:06 Sodium Chloride 0.9% 10 Ml Flush Syringe IV PRN PRN LINE FLUSH Thiamine HCl 100 mg 09/07/20 10:00 09/10/20 15:22 Thiamine 100 Mg Tab PO 100 mg DAILY LUZ Administration
[2020-09-11] MEDS: INSULIN LISPRO 100 UNIT/ML VIAL 3 mL SUB-Q SCH ×7 (08:46→23:45)
[2020-09-11] MEDS: MIDODRINE 5 MG TAB PO SCH ×3 (08:50→17:00)
[2020-09-11] MEDS: SEVELAMER CARBONATE 800 MG TAB PO SCH ×3 (08:50→17:00)
[2020-09-11] MEDS: FOLIC ACID 1 MG TAB PO SCH (10:00)
[2020-09-11] MEDS: CALCITRIOL 0.5 MCG CAP PO SCH (10:00)
[2020-09-11] MEDS: levETIRAcetam 500 MG/5 ML ORAL LIQD PO SCH (10:00)
[2020-09-11] MEDS: ASCORBIC ACID 500 MG TAB PO SCH ×2 (10:00→23:32)
[2020-09-11] MEDS: ASPIRIN 81 MG TAB CHEW PO SCH (10:00)
[2020-09-11] MEDS: THIAMINE 100 MG TAB PO SCH (10:00)
--- NOTE | 2020-09-11 11:08 | Gastroenterology Progress Note ---
Assessment and Plan 60 yo male with pmh of dementia, DM, PVD, ESRD on HD admitted on 09/04/2020 from [facility] for COVID-19 and for HD. Patient has been awaiting outpatient HD arrangement due to COVID status but has remained asymptomatic. GI consulted today for 2 episode of melena. # Melena # Upper GI bleed - new onset of melena on 09/10/2020 - HD stable - Hgb down to 5.4 on 09/10/2020 and received 2 units overnight. AM labs still pending. - h/o EGD in 2017 with esophagitis - No BM overnight and remains HD stable. Rec - keep NPO - PPI IV drip - hold eliquis, anticoagulation. - monitor H/H serially and transfuse with Hgb goal >7. - Given COVID positive status and no overt signs of recurrent active bleeding at this time, will hold off endoscopy. Continue with medical management. - if patient has recurrent bleeding leading to hemodynamic instability that requires emergent endoscopy, will need to transfer to outside facility due to GI endoscopy lab not available for emergent cases. - Patient Problems (1) GI bleed Current Visit: No Status: Acute Qualifiers: GI bleed type/associated pathology: unspecified gastrointestinal hemorrhage type Qualified Code(s): K92.2 - Gastrointestinal hemorrhage, unspecified Subjective Date of service: 09/11/20 Interval history: Patient remains confused this AM. Per nursing, no BM overnight. Labs not done. Objective - Constitutional Vitals: Temp Pulse Resp BP Pulse Ox 97.7 F 101 H 17 144/99 92 09/11/20 06:15 09/11/20 06:15 09/11/20 06:15 09/11/20 06:15 09/11/20 06:15 General appearance: no acute distress - EENT ENT: hearing intact - Respiratory Respiratory effort: normal - Cardiovascular Rhythm: regular Heart Sounds: Present: S1 & S2 - Gastrointestinal General gastrointestinal: Present: soft, non-tender, non-distended - Labs CBC & Chem 7: 09/10/20 14:41 09/10/20 04:51 Labs: Laboratory Results - last 24 hr 09/10/20 09/10/20 09/10/20 12:28 14:40 14:41 Hgb 5.4 L* D Hct 17.3 L* D POC Glucose 201 H Lactic Acid Blood Type B POSITIVE Antibody Screen Negative Crossmatch See Detail 09/10/20 09/10/20 09/10/20 15:46 16:08 22:09 Hgb Hct POC Glucose 206 H 138 H Lactic Acid 3.10 H* Blood Type Antibody Screen Crossmatch
[2020-09-11 11:50] LABS: Basophils % (Auto) 0.4 % (0.0-1.8); Eosinophils % (Auto) 0.4 % (0.0-4.3); Hemoglobin 6.4 gm/dl (11.8-15.2); Lymphocytes # (Auto) 2.2 K/mm3 (1.2-5.4); Lymphocytes % (Auto) 20.5 % (13.4-35.0); Mean Corpuscular HGB Conc 34 % (32-34); Mean Corpuscular Volume 92 fl (84-94); Monocytes % (Auto) 9.4 % (0.0-7.3); Platelet Count 153 K/mm3 (140-440); Red Blood Count 2.04 M/mm3 (3.65-5.03); Red Cell Distribution Width 14.8 % (13.2-15.2)
[2020-09-11 11:59] LABS: Hematocrit 18.8 % (35.5-45.6)
[2020-09-11] MEDS ORDERED: SODIUM CHLORIDE 0.9% 500 ML 500 ML IV NR (12:09)
[2020-09-11 12:25] LABS: Calcium 8.3 mg/dL (8.4-10.2)
[2020-09-11] MEDS ORDERED: CALCIUM GLUCONATE 2,000 MG in SODIUM CHLORIDE 0.9% 100 ML IV ONE (13:00)
--- NOTE | 2020-09-11 13:16 | Event Note ---
Date: 09/11/20 I called his brother, next of kin Jaron Soto [phone] and discussed patient's in detail. Patient's wish is does not want chest compressions and does not want to be on mechanical ventilation okay to be intubated briefly. CODE STATUS changed in the chart.
[2020-09-11] MEDS ORDERED: DEXTROSE 50% IN WATER (25GM) 50 ML SYRINGE IV NR (13:30)
[2020-09-11] MEDS ORDERED: INSULIN REGULAR, HUMAN 100 UNIT/ML 3ML VIAL IV NR (13:30)
[2020-09-11] MEDS ORDERED: SODIUM CHLORIDE 0.9% 100 ML IV PRN (13:55)
[2020-09-11] MEDS: PANTOPRAZOLE 80 MG in SODIUM CHLORIDE 0.9% 100 ML IV SCH (13:57)
[2020-09-11] MEDS ORDERED: DEXTROSE 50% IN WATER (25GM) 50 ML SYRINGE IV ONE (14:00)
[2020-09-11] MEDS: DONEPEZIL 10 MG TAB PO SCH (23:31)
[2020-09-11] MEDS: INSULIN GLARGINE 100 UNITS/ML SUB-Q SCH (23:45)
[2020-09-12] MEDS ORDERED: SODIUM CHLORIDE 0.9% 250ML 250 ML IV ONE (00:34)
[2020-09-12 01:08] LABS: Basophils # (Auto) 0.1 K/mm3 (0.0-0.1); Basophils % (Auto) 0.6 % (0.0-1.8); Hematocrit 28.3 % (35.5-45.6); Hemoglobin 9.1 gm/dl (11.8-15.2); Lymphocytes # (Auto) 1.3 K/mm3 (1.2-5.4); Lymphocytes % (Auto) 6.9 % (13.4-35.0); Mean Corpuscular HGB Conc 32 % (32-34); Mean Corpuscular Volume 97 fl (84-94); Monocytes # (Auto) 2.2 K/mm3 (0.0-0.8); Monocytes % (Auto) 11.8 % (0.0-7.3); Platelet Count 114 K/mm3 (140-440); Red Blood Count 2.91 M/mm3 (3.65-5.03)
[2020-09-12] MEDS ORDERED: SODIUM CHLORIDE 0.9% 500 ML 500 ML IV ONE (01:46)
[2020-09-12] MEDS: PANTOPRAZOLE 80 MG in SODIUM CHLORIDE 0.9% 100 ML IV SCH ×2 (02:03→10:12)
[2020-09-12 05:59] LABS: Basophils % (Auto) 0.1 % (0.0-1.8); Eosinophils % (Auto) 0.1 % (0.0-4.3); Hematocrit 22.3 % (35.5-45.6); Hemoglobin 7.6 gm/dl (11.8-15.2); Lymphocytes # (Auto) 1.2 K/mm3 (1.2-5.4); Lymphocytes % (Auto) 7.2 % (13.4-35.0); Mean Corpuscular HGB Conc 34 % (32-34); Mean Corpuscular Volume 93 fl (84-94); Monocytes # (Auto) 1.6 K/mm3 (0.0-0.8); Monocytes % (Auto) 9.8 % (0.0-7.3); Platelet Count 114 K/mm3 (140-440); Red Blood Count 2.41 M/mm3 (3.65-5.03); Red Cell Distribution Width 14.7 % (13.2-15.2)
[2020-09-12 06:14] LABS: Calcium 8.5 mg/dL (8.4-10.2)
--- NOTE | 2020-09-12 06:30 | Gastroenterology Progress Note ---
Assessment and Plan Melena 09/10 s/p PRBC, Hgb fluctuating, unclear what the true hgb is, repeat in AM but given no overt bleeding no evidence for active GI bleed Hold anticoagulation and cont PPI drip, may start patient on diet and monitor clinically - h/o EGD in 2017 with esophagitis - if patient has recurrent bleeding leading to hemodynamic instability that requires emergent endoscopy, will need to transfer to outside facility due to GI endoscopy lab not available for emergent cases. 20minutes spent communicating with staff, reviewing chart, etc - Patient Problems (1) GI bleed Current Visit: No Status: Acute Qualifiers: GI bleed type/associated pathology: unspecified gastrointestinal hemorrhage type Qualified Code(s): K92.2 - Gastrointestinal hemorrhage, unspecified Subjective Date of service: 09/12/20 Principal diagnosis: Melena Interval history: Spoke with nurse, no overt bleeding today (in fact no BM today) Objective - Constitutional Vitals: Temp Pulse Resp BP Pulse Ox 97.6 F 77 18 122/50 92 09/11/20 22:10 09/12/20 02:26 09/12/20 02:26 09/12/20 02:26 09/12/20 02:26 - Labs CBC & Chem 7: 09/12/20 05:43 09/12/20 05:43 Labs: Laboratory Results - last 24 hr 09/10/20 09/11/20 09/11/20 14:40 11:20 11:20 WBC 10.7 RBC 2.04 L Hgb 6.4 L Hct 18.8 L* MCV 92 MCH 31 MCHC 34 RDW 14.8 Plt Count 153 Lymph % (Auto) 20.5 Mayes % (Auto) 9.4 H Eos % (Auto) 0.4 Baso % (Auto) 0.4 Lymph # (Auto) 2.2 Mayes # (Auto) 1.0 H Eos # (Auto) 0.0 Baso # (Auto) 0.0 Seg Neutrophils % 69.3 Seg Neutrophils # 7.4 Sodium 140 Potassium 6.2 H* Chloride 103.8 Carbon Dioxide 21 L Anion Gap 21 BUN 108 H Creatinine 7.0 H Estimated GFR 10 BUN/Creatinine Ratio 15 Glucose 176 H POC Glucose Lactic Acid Calcium 8.3 L Blood Type B POSITIVE Antibody Screen Negative Crossmatch See Detail 09/11/20 09/11/20 09/11/20 11:20 11:49 17:25 WBC RBC Hgb Hct MCV MCH MCHC RDW Plt Count Lymph % (Auto) Mayes % (Auto) Eos % (Auto) Baso % (Auto) Lymph # (Auto) Mayes # (Auto) Eos # (Auto) Baso # (Auto) Seg Neutrophils % Seg Neutrophils # Sodium Potassium Chloride Carbon Dioxide Anion Gap BUN Creatinine Estimated GFR BUN/Creatinine Ratio Glucose POC Glucose 145 H 195 H Lactic Acid 2.80 H* Calcium Blood Type Antibody Screen Crossmatch 09/11/20 09/12/20 09/12/20 23:33 00:35 00:35 WBC 19.0 H RBC 2.91 L Hgb 9.1 L Hct 28.3 L D MCV 97 H MCH 31 MCHC 32 RDW 15.0 Plt Count 114 L Lymph % (Auto) 6.9 L Mayes % (Auto) 11.8 H Eos % (Auto) 0.0 Baso % (Auto) 0.6 Lymph # (Auto) 1.3 Mayes # (Auto) 2.2 H Eos # (Auto) 0.0 Baso # (Auto) 0.1 Seg Neutrophils % 80.7 H Seg Neutrophils # 15.4 H Sodium Potassium 4.6 D Chloride Carbon Dioxide Anion Gap BUN Creatinine Estimated GFR BUN/Creatinine Ratio Glucose POC Glucose 109 H Lactic Acid Calcium Blood Type Antibody Screen Crossmatch 09/12/20 09/12/20 05:43 05:43 WBC 16.1 H RBC 2.41 L Hgb 7.6 L Hct 22.3 L D MCV 93 MCH 31 MCHC 34 RDW 14.7 Plt Count 114 L Lymph % (Auto) 7.2 L Mayes % (Auto) 9.8 H Eos % (Auto) 0.1 Baso % (Auto) 0.1 Lymph # (Auto) 1.2 Mayes # (Auto) 1.6 H Eos # (Auto) 0.0 Baso # (Auto) 0.0 Seg Neutrophils % 82.8 H Seg Neutrophils # 13.3 H Sodium 147 H Potassium 4.1 Chloride 108.8 H Carbon Dioxide 24 Anion Gap 18 BUN 79 H Creatinine 5.7 H Estimated GFR 12 BUN/Creatinine Ratio 14 Glucose 88 POC Glucose Lactic Acid Calcium 8.5 Blood Type Antibody Screen Crossmatch
--- NOTE | 2020-09-12 08:19 | Progress Note ---
Assessment and Plan Assessment and plan: -- ESRD (end stage renal disease) on dialysis Brush Or Broom Cutter consulted for dialysis. -- Hyperkalemia Patient has had Kayexalate. Will monitor potassium level. -- Dementia continue routine home medications. --Diabetes mellitus type 2 We will monitor Accu-Cheks. resume home insulin dose -- Positive COVID-19 Patient was diagnosed with COVID-19 about 6 days ago before admission. Discussed with ID - no additional treatment needed --Seizure disorder, cont keppra -- DVT prophylaxis Patient placed on subcutaneous heparin. -- Full code status 09/05: Patient is positive for COVID but asymptomatic, no additional treatment needed per ID. CM to arrange to outpt HD where COVID +ve patient could be accommodate. Planned to d/c back to SNF. 09/06: Patient waiting on SNF and HD set up. cont current care 09/07: Getting HD at bedside. Per CM note he cannot resume his outpatient dialysis until he is negative for Covid. Continue to provide supportive care. 09/08; patient need a negative Covid test to resume outpatient dialysis, will order repeat Covid test tomorrow 09/09: Pt covid test is positive. [facility] cannot accept pt back at this time. Referral faxed to [facility] for placement. Will continue to follow. 09/10/2020; patient's Covid test is positive yesterday. [facility] cannot accept pt back at this time. Referral faxed to [facility] for placement. Will continue to follow. Patient had dark stool and I ordered a stat H&H, fecal occult blood test, GI consult. Patient has low blood pressure, but he just finished his dialysis and will continue to monitor. If his blood pressure continues to be low we will give him midodrine. 09/11/2020; patient has GI bleed with severe anemia, hemoglobin was 5.4 yesterday and transfused 2 units of blood. CBC was ordered to be done at 4 AM this morning but was not done. I ordered stat CBC. GI consulted and will see the patient today. Will monitor H&H and if needed will transfuse the patient. Nephrology is following for dialysis. Patient has hypertension and was given 250 mL of NS, lactic acid level was elevated yesterday. Likely due to hypotension and GI bleed. Will monitor and adjust as needed. Patient's repeat hemoglobin is 6.4, will transfuse 2 more units of blood. Patient's potassium is 6.[address] Marie is going to do dialysis and in the meantime I will give him calcium gluconate and do EKG. Patient has lactic acidosis improving from yesterday. Patient's prognosis is poor. 09/12/2020; patient has GI bleeding and hemoglobin this morning is 7.6 decreased from 9.1 after 4 units of packed RBC transfusion. Patient was seen by GI and recommend no endoscopy. GI said we will transfer the patient if emergent endoscopy need arises [active bleeding] because we do not have a GI lab to do the scope before Covid positive patients. Anticoagulation discontinued, patient is on IV PPI. Prognosis is guarded CODE STATUS is DNR/DNI; discussed with his brother over the phone yesterday. History Interval history: Patient was seen and evaluated this morning Patient does not communicate, not cooperative Hospitalist Physical - Physical exam Narrative exam: Not in cardiopulmonary distress. The patient appeared well nourished and normally developed. Vital signs as documented. Head exam is unremarkable. No scleral icterus . Neck is without jugular venous distension, thyromegaly, or carotid bruits. Lungs are clear to auscultation. Cardiac exam reveals regular rate and Rhythm. Abdominal exam reveals normal bowel sounds, nontender, no organomegaly. Extremities left BKA, right AKA. 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 - Constitutional Vitals: Temp Pulse Resp BP Pulse Ox 98.7 F 83 18 123/65 94 09/12/20 04:04 09/12/20 04:04 09/12/20 04:04 09/12/20 04:04 09/12/20 04:08 General appearance: Present: no acute distress Results - Labs CBC & Chem 7: 09/12/20 05:43 09/12/20 05:43 Labs: Laboratory Last Values WBC 16.1 K/mm3 (4.5-11.0) H 09/12/20 05:43 RBC 2.41 M/mm3 (3.65-5.03) L 09/12/20 05:43 Hgb 7.6 gm/dl (11.8-15.2) L 09/12/20 05:43 Hct 22.3 % (35.5-45.6) L D 09/12/20 05:43 MCV 93 fl (84-94) 09/12/20 05:43 MCH 31 pg (28-32) 09/12/20 05:43 MCHC 34 % (32-34) 09/12/20 05:43 RDW 14.7 % (13.2-15.2) 09/12/20 05:43 Plt Count 114 K/mm3 (140-440) L 09/12/20 05:43 Lymph % (Auto) 7.2 % (13.4-35.0) L 09/12/20 05:43 Clark % (Auto) 9.8 % (0.0-7.3) H 09/12/20 05:43 Eos % (Auto) 0.1 % (0.0-4.3) 09/12/20 05:43 Baso % (Auto) 0.1 % (0.0-1.8) 09/12/20 05:43 Lymph # (Auto) 1.2 K/mm3 (1.2-5.4) 09/12/20 05:43 Clark # (Auto) 1.6 K/mm3 (0.0-0.8) H 09/12/20 05:43 Eos # (Auto) 0.0 K/mm3 (0.0-0.4) 09/12/20 05:43 Baso # (Auto) 0.0 K/mm3 (0.0-0.1) 09/12/20 05:43 Seg Neutrophils % 82.8 % (40.0-70.0) H 09/12/20 05:43 Seg Neutrophils # 13.3 K/mm3 (1.8-7.7) H 09/12/20 05:43 PT 14.6 Sec. (12.2-14.9) 09/06/20 04:35 INR 1.15 (0.87-1.13) H 09/06/20 04:35 D-Dimer 918.99 ng/mlDDU (0-234) H 09/05/20 14:37 Sodium 147 mmol/L (137-145) H 09/12/20 05:43 Potassium 4.1 mmol/L (3.6-5.0) 09/12/20 05:43 Chloride 108.8 mmol/L (98-107) H 09/12/20 05:43 Carbon Dioxide 24 mmol/L (22-30) 09/12/20 05:43 Anion Gap 18 mmol/L 09/12/20 05:43 BUN 79 mg/dL (9-20) H 09/12/20 05:43 Creatinine 5.7 mg/dL (0.8-1.3) H 09/12/20 05:43 Estimated GFR 12 ml/min 09/12/20 05:43 BUN/Creatinine Ratio 14 % 09/12/20 05:43 Glucose 88 mg/dL (75-100) 09/12/20 05:43 POC Glucose 109 mg/dL (70-105) H 09/11/20 23:33 Lactic Acid 2.80 mmol/L (0.7-2.0) H* 09/11/20 11:20 Calcium 8.5 mg/dL (8.4-10.2) 09/12/20 05:43 Ferritin 447.5 ng/mL (30.0-300.0) H 09/05/20 14:37 Lactate Dehydrogenase 163 units/L (91-180) 09/05/20 14:37 C-Reactive Protein 0.30 mg/dL (0.00-1.30) 09/05/20 14:37 Procalcitonin 0.19 ng/mL (<0.15) 09/05/20 14:37 PTH Intact 1025 pg/mL (15-65) H 09/10/20 04:51 Coronavirus (PCR) Positive (Negative) A 09/09/20 Unknown Hepatitis A IgM Ab Non-reactive (NonReactive) 09/05/20 13:39 Hep Bs Antigen Non-reactive (Negative) 09/05/20 13:39 Hep B Core IgM Ab Non-reactive (NonReactive) 09/05/20 13:39 Hepatitis C Antibody Non-reactive (NonReactive) 09/05/20 13:39 Blood Type B POSITIVE 09/10/20 14:40 Antibody Screen Negative 09/10/20 14:40 Crossmatch See Detail 09/10/20 14:40 Microbiology: Microbiology 09/10/20 16:08 Peripheral/Venous Blood Culture - Preliminary NO GROWTH AFTER 24 HOURS 09/10/20 16:08 Peripheral/Venous Blood Culture - Preliminary NO GROWTH AFTER 24 HOURS 09/10/20 16:50 Stool Stool Occult Blood (VERNON) - Final Snider/IV: Voiding Method Incontinent IV Catheter Type [Left Upper INT / Saline Lock arm] IV Catheter Type [Left Forearm Peripheral IV ] IV Catheter Type [Left Wrist] INT / Saline Lock IV Catheter Type [Left INT / Saline Lock Antecubital] IV Catheter Type [Right AV fistula Forearm] Active Medications - Current Medications Current Medications: Generic Name Dose Route Start Last Admin Trade Name Freq PRN Reason Stop Dose Admin Acetaminophen 650 mg 09/05/20 00:06 Acetaminophen 325 Mg Tab PO Q4H PRN Pain MILD(1-3)/Fever >100.5/DINERO Albuterol 2.5 mg 09/06/20 22:19 Albuterol 2.5 Mg/3 Ml Nebu IH Q4HRT PRN Shortness Of Breath Ascorbic Acid 500 mg 09/07/20 10:00 09/11/20 23:32 Ascorbic Acid 500 Mg Tab PO Not Given BID [facility] Aspirin 81 mg 09/07/20 10:00 09/11/20 10:00 Aspirin 81 Mg Tab Chew PO Not Given QDAY [facility] Atorvastatin Calcium 40 mg 09/07/20 22:00 09/11/20 23:32 Atorvastatin 40 Mg Tab PO Not Given QHS [facility] Bisacodyl 10 mg 09/06/20 22:19 Bisacodyl 5 Mg Tab PO QDAY PRN Constipation Calcitriol 0.5 mcg 09/11/20 10:00 09/11/20 10:00 Calcitriol 0.5 Mcg Cap PO Not Given QDAY [facility] Dextrose 50 ml 09/05/20 00:06 Dextrose 50% In Water (25gm) 50 Ml Syringe IV Q30MIN PRN Hypoglycemia Protocol Donepezil HCl 10 mg 09/07/20 22:00 09/11/20 23:31 Donepezil 10 Mg Tab PO Not Given QHS [facility] Epoetin Darvin 10,000 unit 09/06/20 20:24 09/07/20 17:09 Epoetin Darvin 10,000 Unit/1 Ml Inj SUB-Q 10,000 unit CORBY PRN Administration hemodialysis Folic Acid 1 mg 09/07/20 10:00 09/11/20 10:00 Folic Acid 1 Mg Tab PO Not Given DAILY [facility] Heparin Sodium (Porcine) 3,000 unit 09/05/20 08:28 09/07/20 15:34 Heparin 10,000 Units/10 Ml Vial IV 3,000 unit CORBY PRN Administration hemodialysis Pantoprazole Sodium 80 mg/ 100 mls @ 10 mls/hr 09/10/20 17:00 09/12/20 02:03 Sodium Chloride IV 8 mg/hr DIRECT LUZ 10 mls/hr Administration 8 MG/HR Sodium Chloride 100 mls @ 999 mls/hr 09/11/20 13:55 Nacl 0.9% IV CORBY PRN Hypotension Levetiracetam 250 mg/ Sodium 52.5 mls @ 157.5 mls/hr 09/11/20 22:00 09/11/20 23:31 Chloride IV 157.5 mls/hr Q12HR LUZ Administration Insulin Glargine 10 units 09/07/20 22:00 09/11/20 23:45 Insulin Glargine 100 Units/Ml SUB-Q Not Given QHS [facility] Insulin Human Lispro 0 unit 09/05/20 07:30 09/11/20 23:45 Insulin Lispro 100 Unit/Ml Vial 3 Ml SUB-Q Not Given ACHS [facility] Protocol Insulin Human Lispro 5 unit 09/07/20 07:30 09/11/20 16:30 Insulin Lispro 100 Unit/Ml Vial 3 Ml SUB-Q Not Given AC [facility] Magnesium Hydroxide 30 ml 09/05/20 00:06 Magnesium Hydroxide (Mom) Oral Liqd Udc PO Q4H PRN Constipation Midodrine 5 mg 09/10/20 14:30 09/11/20 17:00 Midodrine 5 Mg Tab PO Not Given TID@0800,1200,1700 [facility] Morphine Sulfate 2 mg 09/05/20 00:06 Morphine 2 Mg/1 Ml Inj IV Q4H PRN Pain, Moderate (4-6) Ondansetron HCl 4 mg 09/05/20 00:06 09/10/20 15:21 Ondansetron 4 Mg/2 Ml Inj IV 4 mg Q8H PRN Administration Nausea And Vomiting Sevelamer Carbonate 2,400 mg 09/07/20 08:00 09/11/20 17:00 Sevelamer Carbonate 800 Mg Tab PO Not Given TIDWM LUZ Sodium Chloride 10 ml 09/05/20 10:00 09/11/20 23:32 Sodium Chloride 0.9% 10 Ml Flush Syringe IV 10 ml BID LUZ Administration Sodium Chloride 10 ml 09/05/20 00:06 Sodium Chloride 0.9% 10 Ml Flush Syringe IV PRN PRN LINE FLUSH Thiamine HCl 100 mg 09/07/20 10:00 09/11/20 10:00 Thiamine 100 Mg Tab PO Not Given DAILY [facility]Z Nutrition/Malnutrition Assess - Dietary Evaluation Nutrition/Malnutrition Findings: Nutrition Notes Start: 09/05/20 10:45 Freq: Status: Active Protocol: Document 09/09/20 15:13 [facility] (Rec: 09/09/20 15:46 NHALL [id number]) Nutrition Notes Initial or Follow up Assessment Current Diagnosis CKD (stage V CKD),Diabetes Other Pertinent Diagnosis COVID-19 (+), Dementia, Seizure D/O Current Diet Renal/Cardiac/Consistent CHO Labs/Tests BUN 75 Cr 6.6 POC Glu range since admission: 53-289 Pertinent Medications Vit C, Sensipar, Aricept, Folic acid, Lantus, Protonix, Renvela, Thiamine Height 5 ft 7 in Weight 55.3 kg [place] Body Weight (kg) 67.27 BMI 19.1 Weight change and time frame Estimated Ht before amputation : 67in (unable to reach pt or family member via phone) Subjective/Other Information 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 He has consumed 88% of meals since last assessment. Pt not appropriate for diet education at this time. Percent of energy/protein needs met: 100% energy and pro Burn Absent Trauma Absent Current % PO Good (75-100%) Minimum of two criteria No #1 Nutrition Diagnosis Increased nutrient needs ( specify in comment below) Comments: protein Etiology increased demands of wound healing As Evidenced by Signs and Symptoms pt with small sacral wound Is patient on ventilator? No Is Patient Ambulatory and/or Out of Bed No REE-([facility]-confined to bed) 1579.236 Kcal/Kg value to use for calculation 33 Approximate Energy Requirements Using 1825 kcal/Kg Calculation Used for Recommendations Kcal/kg Additional Notes Pro needs >1.2g/kg: >66g/day Fluid needs 1-1.5L/day Nutrition Intervention Change Diet Order: Continue current diet order Goal #1 PO intakes to meet at least 75 % energy and pro needs Goal #2 Wt maintenance Anticipated Discharge Needs: None identified at this time Follow-Up By: 09/17/20 Additional Comments F/U: stable intakes, wt
[2020-09-12] MEDS: CALCITRIOL 0.5 MCG CAP PO SCH ×2 (10:13→11:02)
[2020-09-12] MEDS: ASCORBIC ACID 500 MG TAB PO SCH ×2 (10:13→11:02)
[2020-09-12] MEDS: ASPIRIN 81 MG TAB CHEW PO SCH ×2 (10:13→11:02)
[2020-09-12] MEDS: SEVELAMER CARBONATE 800 MG TAB PO SCH ×4 (10:13→17:36)
[2020-09-12] MEDS: MIDODRINE 5 MG TAB PO SCH ×4 (10:14→17:36)
[2020-09-12] MEDS: INSULIN LISPRO 100 UNIT/ML VIAL 3 mL SUB-Q SCH ×8 (10:14→22:39)
[2020-09-12] MEDS: FOLIC ACID 1 MG TAB PO SCH ×2 (10:14→11:02)
[2020-09-12] MEDS: THIAMINE 100 MG TAB PO SCH (10:15)
--- NOTE | 2020-09-12 14:01 | Progress Note ---
Assessment and Plan 1. ESRD: Patient is on maintenance hemodialysis three times a week, TTS schedule. Missed HD on 09/02 and 09/04. Hemodialysis: 09/05, 09/07, 09/10, 09/11. 2. FEN: Hypocalcemia, Cinacalcet stopped, monitor. Hyperkalemia, improved. Monitor. 3. Anemia: S/p PRBC. Epogen as needed. Monitor. 4. COVID infection: CXR normal. No hypoxia. Seen by ID. 5. GI bleed: Seen by GI. 6. Anemia: 2/2 GI bleed. S/p multiple units of PRBC. Monitor. 7. Hyperparathyroidism: Cinacalcet stopped due to hypocalcemia. On Calcitriol. 8. PVD: S/p b/l LE amputation. 9. DM type 2. 10. Seizure disorder. Subjective: Patient seen and examined at the bedside. Examination: General appearance: well-developed, appears stated age HEENT: ATNC, JOSÉ ANTONIO Neck: trachea midline Respiratory: Clear to Auscultation Heart: regular, S1S2, no murmur Abdomen: soft, normoactive bowel sounds, not tender, not distended Integumentary: no obvious rash Neurologic: alert, confusion noted, oriented to self only, moving extremities Ext: no edema, R AKA, L BKA Hemodialysis access: R FA AVF Subjective Date of service: 09/12/20 Principal diagnosis: Melena Objective - Vital Signs Vital signs: Vital Signs - 12hr 09/12/20 09/12/20 09/12/20 02:26 04:04 04:08 Temperature 98.7 F Pulse Rate 77 83 Respiratory 18 18 Rate Blood Pressure 122/50 123/65 O2 Sat by Pulse 92 58 L 94 Oximetry 09/12/20 09/12/20 09:56 11:16 Temperature 99.3 F Pulse Rate 103 H Respiratory 16 Rate Blood Pressure 134/61 O2 Sat by Pulse 97 96 Oximetry - Lab 09/13/20 09:58 09/12/20 05:43 Most recent lab results Calcium 8.5 mg/dL (8.4-10.2) 09/12/20 05:43 Medications & Allergies - Medications Allergies/Adverse Reactions: Allergies Penicillins Allergy (Verified 07/11/19 17:31) Unknown Home Medications: Home Medications Medication Instructions Recorded Confirmed Last Taken Type diphenhydrAMINE [Benadryl CAP] 25 mg PO Q6HR PRN 12/27/16 09/04/20 05/24/19 History Insulin Lispro [Humalog 100 See Protocol SQ AC 02/14/17 09/04/20 05/22/19 History UNITS/ML Kwikpen] Donepezil HCl 10 mg PO QHS 11/10/18 09/04/20 05/25/19 History Losartan Potassium 100 mg PO QHS 11/10/18 09/04/20 05/25/19 History Metoprolol Tartrate 75 mg PO BID 11/10/18 09/04/20 05/25/19 History Sevelamer Carbonate 2,400 mg PO TIDWM 11/10/18 09/04/20 05/25/19 History Epoetin Darvin 10,000 Unit [Procrit] 10,000 unit IJ PRN 07/11/19 09/04/20 Unknown History ALBUTEROL NEB's [Proventil 0.083% 2.5 mg IH Q4HRT PRN #30 nebu 11/07/19 09/04/20 Unknown Rx NEBS] Acetaminophen [Acetaminophen TAB] 1 tab PO Q4HR PRN #15 11/07/19 09/04/20 Unknown Rx Ascorbic Acid [Vitamin C] 500 mg PO BID #60 tablet 11/07/19 09/04/20 Unknown Rx Aspirin [Aspirin BABY CHEW TAB] 81 mg PO QDAY #30 tab.chew 11/07/19 09/04/20 Unknown Rx AtorvaSTATin [Lipitor] 40 mg PO QHS #30 tablet 11/07/19 09/04/20 Unknown Rx Cinacalcet [Sensipar] 30 mg PO QDAY #30 tablet 11/07/19 09/04/20 Unknown Rx Ferrous Sulfate [Feosol 325 MG tab] 325 mg PO BID #60 tablet 11/07/19 09/04/20 Unknown Rx Folic Acid [Folvite] 1 mg PO DAILY #30 tablet 11/07/19 09/04/20 Unknown Rx Insulin Glargine [Lantus VIAL] 20 units SUB-Q QHS units 11/07/19 09/04/20 Unknown Rx Pantoprazole [Protonix TAB] 40 mg PO QDAY #15 tablet 11/07/19 09/04/20 Unknown Rx Thiamine [Vitamin B-1] 100 mg PO DAILY #30 tablet 11/07/19 09/04/20 Unknown Rx amLODIPine 10 mg PO QHS #30 tab 11/07/19 09/04/20 05/25/19 Rx bisacodyL [Dulcolax tab] 10 mg PO QDAY PRN #30 tablet 11/07/19 09/04/20 Unknown Rx cloNIDine-TTS PATCH [Catapres-Tts 0.1 mg TD Tu #4 patch 11/07/19 09/04/20 Unknown Rx 0.1MG Patch] levETIRAcetam [Keppra TAB] 250 mg PO BID #30 tablet 11/07/19 09/04/20 05/25/19 Rx Active Medications: Generic Name Dose Route Start Last Admin Trade Name Freq PRN Reason Stop Dose Admin Acetaminophen 650 mg 09/05/20 00:06 Acetaminophen 325 Mg Tab PO Q4H PRN Pain MILD(1-3)/Fever >100.5/DINERO Albuterol 2.5 mg 09/06/20 22:19 Albuterol 2.5 Mg/3 Ml Nebu IH Q4HRT PRN Shortness Of Breath Ascorbic Acid 500 mg 09/07/20 10:00 09/12/20 11:02 Ascorbic Acid 500 Mg Tab PO Not Given BID [facility] Aspirin 81 mg 09/07/20 10:00 09/12/20 11:02 Aspirin 81 Mg Tab Chew PO Not Given QDAY [facility] Atorvastatin Calcium 40 mg 09/07/20 22:00 09/11/20 23:32 Atorvastatin 40 Mg Tab PO Not Given QHS [facility] Bisacodyl 10 mg 09/06/20 22:19 Bisacodyl 5 Mg Tab PO QDAY PRN Constipation Calcitriol 0.5 mcg 09/11/20 10:00 09/12/20 11:02 Calcitriol 0.5 Mcg Cap PO Not Given QDAY [facility] Dextrose 50 ml 09/05/20 00:06 Dextrose 50% In Water (25gm) 50 Ml Syringe IV Q30MIN PRN Hypoglycemia Protocol Donepezil HCl 10 mg 09/07/20 22:00 09/11/20 23:31 Donepezil 10 Mg Tab PO Not Given QHS [facility] Epoetin Darvin 10,000 unit 09/06/20 20:24 09/07/20 17:09 Epoetin Darvin 10,000 Unit/1 Ml Inj SUB-Q 10,000 unit CORBY PRN Administration hemodialysis Folic Acid 1 mg 09/07/20 10:00 09/12/20 11:02 Folic Acid 1 Mg Tab PO Not Given DAILY [facility] Heparin Sodium (Porcine) 3,000 unit 09/05/20 08:28 09/07/20 15:34 Heparin 10,000 Units/10 Ml Vial IV 3,000 unit CORBY PRN Administration hemodialysis Pantoprazole Sodium 80 mg/ 100 mls @ 10 mls/hr 09/10/20 17:00 09/12/20 10:12 Sodium Chloride IV 8 mg/hr DIRECT LUZ 10 mls/hr Administration 8 MG/HR Sodium Chloride 100 mls @ 999 mls/hr 09/11/20 13:55 Nacl 0.9% IV CORBY PRN Hypotension Levetiracetam 250 mg/ Sodium 52.5 mls @ 157.5 mls/hr 09/11/20 22:00 09/12/20 10:13 Chloride IV 157.5 mls/hr Q12HR LUZ Administration Insulin Glargine 10 units 09/07/20 22:00 09/11/20 23:45 Insulin Glargine 100 Units/Ml SUB-Q Not Given QHS [facility] Insulin Human Lispro 0 unit 09/05/20 07:30 09/12/20 12:48 Insulin Lispro 100 Unit/Ml Vial 3 Ml SUB-Q Not Given ACHS [facility] Protocol Insulin Human Lispro 5 unit 09/07/20 07:30 09/12/20 12:49 Insulin Lispro 100 Unit/Ml Vial 3 Ml SUB-Q Not Given AC [facility] Magnesium Hydroxide 30 ml 09/05/20 00:06 Magnesium Hydroxide (Mom) Oral Liqd Udc PO Q4H PRN Constipation Midodrine 5 mg 09/10/20 14:30 09/12/20 12:49 Midodrine 5 Mg Tab PO Not Given TID@0800,1200,1700 [facility] Morphine Sulfate 2 mg 09/05/20 00:06 Morphine 2 Mg/1 Ml Inj IV Q4H PRN Pain, Moderate (4-6) Ondansetron HCl 4 mg 09/05/20 00:06 09/10/20 15:21 Ondansetron 4 Mg/2 Ml Inj IV 4 mg Q8H PRN Administration Nausea And Vomiting Sevelamer Carbonate 2,400 mg 09/07/20 08:00 09/12/20 12:49 Sevelamer Carbonate 800 Mg Tab PO Not Given TIDWM [facility] Sodium Chloride 10 ml 09/05/20 10:00 09/12/20 10:15 Sodium Chloride 0.9% 10 Ml Flush Syringe IV Not Given BID [facility] Sodium Chloride 10 ml 09/05/20 00:06 Sodium Chloride 0.9% 10 Ml Flush Syringe IV PRN PRN LINE FLUSH Thiamine HCl 100 mg 09/07/20 10:00 09/12/20 10:15 Thiamine 100 Mg Tab PO 100 mg DAILY [facility] Administration
[2020-09-12] MEDS: INSULIN GLARGINE 100 UNITS/ML SUB-Q SCH (23:21)
[2020-09-12] MEDS: DONEPEZIL 10 MG TAB PO SCH (23:21)
[2020-09-13] MEDS: ASCORBIC ACID 500 MG TAB PO SCH ×3 (00:08→22:18)
[2020-09-13] MEDS: PANTOPRAZOLE 80 MG in SODIUM CHLORIDE 0.9% 100 ML IV SCH ×2 (00:13→19:26)
[2020-09-13] MEDS: INSULIN LISPRO 100 UNIT/ML VIAL 3 mL SUB-Q SCH ×6 (07:30→16:30)
[2020-09-13] MEDS: MIDODRINE 5 MG TAB PO SCH ×3 (08:00→17:38)
[2020-09-13] MEDS: SEVELAMER CARBONATE 800 MG TAB PO SCH ×3 (08:00→17:38)
[2020-09-13] MEDS: FOLIC ACID 1 MG TAB PO SCH (10:00)
[2020-09-13] MEDS: CALCITRIOL 0.5 MCG CAP PO SCH (10:00)
[2020-09-13] MEDS: THIAMINE 100 MG TAB PO SCH (10:00)
[2020-09-13] MEDS: ASPIRIN 81 MG TAB CHEW PO SCH (10:00)
[2020-09-13 10:33] LABS: Basophils % (Auto) 0.3 % (0.0-1.8); Eosinophils # (Auto) 0.3 K/mm3 (0.0-0.4); Eosinophils % (Auto) 3.4 % (0.0-4.3); Hemoglobin 6.3 gm/dl (11.8-15.2); Lymphocytes # (Auto) 0.6 K/mm3 (1.2-5.4); Lymphocytes % (Auto) 7.9 % (13.4-35.0); Mean Corpuscular HGB Conc 33 % (32-34); Mean Corpuscular Volume 95 fl (84-94); Monocytes # (Auto) 0.7 K/mm3 (0.0-0.8); Monocytes % (Auto) 9.1 % (0.0-7.3); Platelet Count 141 K/mm3 (140-440); Red Blood Count 1.98 M/mm3 (3.65-5.03); Red Cell Distribution Width 15.6 % (13.2-15.2)
--- NOTE | 2020-09-13 10:42 | Progress Note ---
Assessment and Plan 1. ESRD: Patient is on maintenance hemodialysis three times a week, TTS schedule. Missed HD on 09/02 and 09/04. Hemodialysis: 09/05, 09/07, 09/10, 09/11. 2. FEN: Hypocalcemia, Cinacalcet stopped, monitor. Hyperkalemia, improved. Monitor. 3. Anemia: PRBC as needed. Epogen as needed. Monitor. 4. COVID infection: CXR normal. No hypoxia. Seen by ID. 5. GI bleed: Seen by GI. 6. Anemia: 2/2 GI bleed. S/p multiple units of PRBC. Monitor. 7. Hyperparathyroidism: Cinacalcet stopped due to hypocalcemia. On Calcitriol. 8. PVD: S/p b/l LE amputation. 9. DM type 2. 10. Seizure disorder. Subjective: The patient was not examined today. However the examination findings from other providers noted. The current and previous medical records are reviewed in detail as are laboratory and imaging data reviewed when appropriate. Medications being given are also reviewed. In addition the case has been discussed with the attending hospitalist and the nurse when needed. New renal recommendations as above. Examination: Subjective Date of service: 09/13/20 Principal diagnosis: Melena Objective - Vital Signs Vital signs: Vital Signs - 12hr 09/12/20 09/13/20 23:49 05:11 Temperature 99.2 F 99.2 F Pulse Rate 104 H 98 H Respiratory 14 14 Rate Blood Pressure 91/34 116/20 O2 Sat by Pulse 98 100 Oximetry - Lab 09/13/20 09:58 09/13/20 09:58 Most recent lab results Calcium 8.5 mg/dL (8.4-10.2) 09/12/20 05:43 Medications & Allergies - Medications Allergies/Adverse Reactions: Allergies Penicillins Allergy (Verified 07/11/19 17:31) Unknown Home Medications: Home Medications Medication Instructions Recorded Confirmed Last Taken Type RX: diphenhydrAMINE [Benadryl CAP] 25 mg PO Q6HR PRN 12/27/16 09/04/20 05/24/19 History RX: Insulin Lispro [Humalog 100 See Protocol SQ AC 02/14/17 09/04/20 05/22/19 History UNITS/ML Kwikpen] RX: Donepezil HCl 10 mg PO QHS 11/10/18 09/04/20 05/25/19 History RX: Losartan Potassium 100 mg PO QHS 11/10/18 09/04/20 05/25/19 History RX: Metoprolol Tartrate 75 mg PO BID 11/10/18 09/04/20 05/25/19 History RX: Sevelamer Carbonate 2,400 mg PO TIDWM 11/10/18 09/04/20 05/25/19 History RX: Epoetin Darvin 10,000 Unit 10,000 unit IJ PRN 07/11/19 09/04/20 Unknown H istory [Procrit] RX: ALBUTEROL NEB's [Proventil 2.5 mg IH Q4HRT PRN #30 nebu 11/07/19 09/04/20 Unknown Rx 0.083% NEBS] RX: Acetaminophen [Acetaminophen 1 tab PO Q4HR PRN #15 11/07/19 09/04/20 Unknown Rx TAB] RX: Ascorbic Acid [Vitamin C] 500 mg PO BID #60 tablet 11/07/19 09/04/20 Unknown Rx RX: Aspirin [Aspirin BABY CHEW TAB] 81 mg PO QDAY #30 tab.chew 11/07/19 09/04/20 Unknown Rx RX: AtorvaSTATin [Lipitor] 40 mg PO QHS #30 tablet 11/07/19 09/04/20 Unknown Rx RX: Cinacalcet [Sensipar] 30 mg PO QDAY #30 tablet 11/07/19 09/04/20 Unknown Rx RX: Ferrous Sulfate [Feosol 325 MG 325 mg PO BID #60 tablet 11/07/19 09/04/20 Unknown Rx tab] RX: Folic Acid [Folvite] 1 mg PO DAILY #30 tablet 11/07/19 09/04/20 Unknown Rx RX: Insulin Glargine [Lantus VIAL] 20 units SUB-Q QHS units 11/07/19 09/04/20 Unknown Rx RX: Pantoprazole [Protonix TAB] 40 mg PO QDAY #15 tablet 11/07/19 09/04/20 Unknown Rx RX: Thiamine [Vitamin B-1] 100 mg PO DAILY #30 tablet 11/07/19 09/04/20 Unknown Rx RX: amLODIPine 10 mg PO QHS #30 tab 11/07/19 09/04/20 05/25/19 Rx RX: bisacodyL [Dulcolax tab] 10 mg PO QDAY PRN #30 tablet 11/07/19 09/04/20 Unknown Rx RX: cloNIDine-TTS PATCH 0.1 mg TD Tu #4 patch 11/07/19 09/04/20 Unknown Rx [Catapres-Tts 0.1MG Patch] RX: levETIRAcetam [Keppra TAB] 250 mg PO BID #30 tablet 11/07/19 09/04/20 05/25/19 Rx Active Medications: Generic Name Dose Route Start Last Admin Trade Name Freq PRN Reason Stop Dose Admin Acetaminophen 650 mg 09/05/20 00:06 Acetaminophen 325 Mg Tab PO Q4H PRN Pain MILD(1-3)/Fever >100.5/DINERO Albuterol 2.5 mg 09/06/20 22:19 Albuterol 2.5 Mg/3 Ml Nebu IH Q4HRT PRN Shortness Of Breath Ascorbic Acid 500 mg 09/07/20 10:00 09/13/20 00:08 Ascorbic Acid 500 Mg Tab PO Not Given BID [facility] Aspirin 81 mg 09/07/20 10:00 09/12/20 11:02 Aspirin 81 Mg Tab Chew PO Not Given QDAY [facility] Atorvastatin Calcium 40 mg 09/07/20 22:00 09/13/20 00:08 Atorvastatin 40 Mg Tab PO Not Given QHS [facility] Bisacodyl 10 mg 09/06/20 22:19 Bisacodyl 5 Mg Tab PO QDAY PRN Constipation Calcitriol 0.5 mcg 09/11/20 10:00 09/12/20 11:02 Calcitriol 0.5 Mcg Cap PO Not Given QDAY [facility] Dextrose 50 ml 09/05/20 00:06 Dextrose 50% In Water (25gm) 50 Ml Syringe IV Q30MIN PRN Hypoglycemia Protocol Donepezil HCl 10 mg 09/07/20 22:00 09/12/20 23:21 Donepezil 10 Mg Tab PO Not Given QHS [facility] Epoetin Darvin 10,000 unit 09/06/20 20:24 09/07/20 17:09 Epoetin Darvin 10,000 Unit/1 Ml Inj SUB-Q 10,000 unit CORBY PRN Administration hemodialysis Folic Acid 1 mg 09/07/20 10:00 09/12/20 11:02 Folic Acid 1 Mg Tab PO Not Given DAILY [facility] Heparin Sodium (Porcine) 3,000 unit 09/05/20 08:28 09/07/20 15:34 Heparin 10,000 Units/10 Ml Vial IV 3,000 unit CORBY PRN Administration hemodialysis Pantoprazole Sodium 80 mg/ 100 mls @ 10 mls/hr 09/10/20 17:00 09/13/20 00:13 Sodium Chloride IV 8 mg/hr DIRECT LUZ 10 mls/hr Administration 8 MG/HR Sodium Chloride 100 mls @ 999 mls/hr 09/11/20 13:55 Nacl 0.9% IV CORBY PRN Hypotension Levetiracetam 250 mg/ Sodium 52.5 mls @ 157.5 mls/hr 09/11/20 22:00 09/12/20 22:40 Chloride IV 157.5 mls/hr Q12HR LUZ Administration Insulin Glargine 10 units 09/07/20 22:00 09/12/20 23:21 Insulin Glargine 100 Units/Ml SUB-Q Not Given QHS [facility] Insulin Human Lispro 0 unit 09/05/20 07:30 09/12/20 22:39 Insulin Lispro 100 Unit/Ml Vial 3 Ml SUB-Q Not Given ACHS [facility] Protocol Insulin Human Lispro 5 unit 09/07/20 07:30 09/12/20 17:36 Insulin Lispro 100 Unit/Ml Vial 3 Ml SUB-Q Not Given AC [facility] Magnesium Hydroxide 30 ml 09/05/20 00:06 Magnesium Hydroxide (Mom) Oral Liqd Udc PO Q4H PRN Constipation Midodrine 5 mg 09/10/20 14:30 09/12/20 17:36 Midodrine 5 Mg Tab PO Not Given TID@0800,1200,1700 [facility] Morphine Sulfate 2 mg 09/05/20 00:06 Morphine 2 Mg/1 Ml Inj IV Q4H PRN Pain, Moderate (4-6) Ondansetron HCl 4 mg 09/05/20 00:06 09/10/20 15:21 Ondansetron 4 Mg/2 Ml Inj IV 4 mg Q8H PRN Administration Nausea And Vomiting Sevelamer Carbonate 2,400 mg 09/07/20 08:00 09/12/20 17:36 Sevelamer Carbonate 800 Mg Tab PO Not Given TIDWM [facility] Sodium Chloride 10 ml 09/05/20 10:00 09/12/20 22:40 Sodium Chloride 0.9% 10 Ml Flush Syringe IV 10 ml BID LUZ Administration Sodium Chloride 10 ml 09/05/20 00:06 Sodium Chloride 0.9% 10 Ml Flush Syringe IV PRN PRN LINE FLUSH Thiamine HCl 100 mg 09/07/20 10:00 09/12/20 10:15 Thiamine 100 Mg Tab PO 100 mg DAILY LUZ Administration
[2020-09-13 10:49] LABS: Calcium 8.3 mg/dL (8.4-10.2)
[2020-09-13 11:15] LABS: Hematocrit 18.9 % (35.5-45.6)
--- NOTE | 2020-09-13 12:20 | Progress Note ---
Subjective Date of service: 09/13/20 Principal diagnosis: Melena Interval history: Assessment and plan: -- ESRD (end stage renal disease) on dialysis Nephrology following -- Hyperkalemia Improved -- Dementia continue home medications. --Diabetes mellitus type 2 Accu-Cheks. resume home insulin dose and insulin sliding scale coverage -- Positive COVID-19 Patient was diagnosed with COVID-19 about 6 days ago before admission. Discussed with ID - no further recommendations --Seizure disorder, cont keppra Severe anemia/melena/GI bleed GI note reviewed Transfuse 1 unit of PRBC as the hemoglobin dropped to 6.3 today No overt bleed Start on clear liquids as no immediate plans for endoscopy Await further recommendation from GI -- DVT prophylaxis Hold heparin. SCDs -- Full code status 09/05: Patient is positive for COVID but asymptomatic, no additional treatment needed per ID. CM to arrange to outpt HD where COVID +ve patient could be accommodate. Planned to d/c back to SNF. 09/06: Patient waiting on SNF and HD set up. cont current care 09/07: Getting HD at bedside. Per CM note he cannot resume his outpatient dialysis until he is negative for Covid. Continue to provide supportive care. 09/08; patient need a negative Covid test to resume outpatient dialysis, will order repeat Covid test tomorrow 09/09: Pt covid test is positive. [facility] cannot accept pt back at this time. Referral faxed to [facility] for placement. Will continue to follow. 09/10/2020; patient's Covid test is positive yesterday. [facility] cannot accept pt back at this time. Referral faxed to [facility] for placement. Will continue to follow. Patient had dark stool and I ordered a stat H&H, fecal occult blood test, GI consult. Patient has low blood pressure, but he just finished his dialysis and will continue to monitor. If his blood pressure continues to be low we will give him midodrine. 09/11/2020; patient has GI bleed with severe anemia, hemoglobin was 5.4 yesterday and transfused 2 units of blood. CBC was ordered to be done at 4 AM this morning but was not done. I ordered stat CBC. GI consulted and will see the patient today. Will monitor H&H and if needed will transfuse the patient. Nephrology is following for dialysis. Patient has hypertension and was given 250 mL of NS, lactic acid level was elevated yesterday. Likely due to hypotension and GI bleed. Will monitor and adjust as needed. Patient's repeat hemoglobin is 6.4, will transfuse 2 more units of blood. Patient's potassium is 6.[address] Marie is going to do dialysis and in the meantime I will give him calcium gluconate and do EKG. Patient has lactic acidosis improving from yesterday. Patient's prognosis is poor. 09/12/2020; patient has GI bleeding and hemoglobin this morning is 7.6 decreased from 9.1 after 4 units of packed RBC transfusion. Patient was seen by GI and recommend no endoscopy. GI said we will transfer the patient if emergent endoscopy need arises [active bleeding] because we do not have a GI lab to do the scope before Covid positive patients. Anticoagulation discontinued, patient is on IV PPI. Prognosis is guarded CODE STATUS is DNR/DNI; discussed with his brother over the phone yesterday. 09/13/20 patient is alert, no specific complaints, wants to eat, GI and nephrology notes reviewed. Lab results reviewed We will transfuse 1 unit of PRBC, will start the patient on clear liquids per review of GI note History Interval history: Patient was seen and evaluated this morning Patient does not communicate, not cooperative Hospitalist Physical - Physical exam Narrative exam: Not in distress. Alert, wants to eat Vital signs as documented. Head exam is unremarkable. No scleral icterus . Neck is without jugular venous distension Lungs are clear to auscultation. Cardiac exam reveals regular rate and Rhythm. Abdominal exam reveals normal bowel sounds, nontender Extremities left BKA, right AKA. 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 Objective - Constitutional Vitals: Vital Signs - 12hr 09/13/20 05:11 Temperature 99.2 F Pulse Rate 98 H Respiratory 14 Rate Blood Pressure 116/20 O2 Sat by Pulse 100 Oximetry - Labs CBC & Chem 7: 09/13/20 09:58 09/13/20 09:58 Labs: Abnormal lab results 09/10/20 09/13/20 09/13/20 Range/Units 14:40 09:58 09:58 RBC 1.98 L (3.65-5.03) M/mm3 Hgb 6.3 L (11.8-15.2) gm/dl Hct 18.9 L* (35.5-45.6) % MCV 95 H (84-94) fl RDW 15.6 H (13.2-15.2) % Lymph % (Auto) 7.9 L (13.4-35.0) % [place] % (Auto) 9.1 H (0.0-7.3) % Lymph # (Auto) 0.6 L (1.2-5.4) K/mm3 Seg Neutrophils % 79.3 H (40.0-70.0) % Carbon Dioxide 21 L (22-30) mmol/L BUN 91 H (9-20) mg/dL Creatinine 7.1 H (0.8-1.3) mg/dL Glucose 128 H (75-100) mg/dL Calcium 8.3 L (8.4-10.2) mg/dL Crossmatch See Detail
--- NOTE | 2020-09-13 13:10 | Gastroenterology Progress Note ---
Assessment and Plan Melena 09/10 s/p PRBC, Hgb trending down rapidly again but given no overt bleeding no evidence for active GI bleed, therefore need to r/o other source of blood loss including hemolysis, non GI blood loss, etc Hold anticoagulation and cont PPI drip, may start patient on diet and monitor clinically - if patient has recurrent bleeding leading to hemodynamic instability that requires emergent endoscopy, will need to transfer to outside facility due to GI endoscopy lab not available for emergent cases. Otherwise, tentative plan for EGD/colon Wednesday - h/o EGD in 2016 with esophagitis - Patient Problems (1) GI bleed Current Visit: No Status: Acute Qualifiers: GI bleed type/associated pathology: unspecified gastrointestinal hemorrhage type Qualified Code(s): K92.2 - Gastrointestinal hemorrhage, unspecified Subjective Date of service: 09/13/20 Principal diagnosis: Melena Interval history: Hgb trending down, no documented overt bleeding Patient denies abd pain but is lethargic spoke with nurse tech, no BM today and only BM yesterday was small amount of mucus, no overt bleeding Objective - Constitutional Vitals: Temp Pulse Resp BP Pulse Ox 99.2 F 98 H 14 116/20 100 09/13/20 05:11 09/13/20 05:11 09/13/20 05:11 09/13/20 05:11 09/13/20 05:11 General appearance: no acute distress - Respiratory Respiratory effort: normal - Gastrointestinal General gastrointestinal: Present: non-tender - Musculoskeletal Musculoskeletal: other (s/p B/L LE amputation) - Labs CBC & Chem 7: 09/13/20 09:58 09/13/20 09:58 Labs: Laboratory Results - last 24 hr 09/10/20 09/12/20 09/13/20 14:40 21:50 09:58 WBC 7.7 RBC 1.98 L Hgb 6.3 L Hct 18.9 L* MCV 95 H MCH 32 MCHC 33 RDW 15.6 H Plt Count 141 Lymph % (Auto) 7.9 L Travis % (Auto) 9.1 H Eos % (Auto) 3.4 Baso % (Auto) 0.3 Lymph # (Auto) 0.6 L Travis # (Auto) 0.7 Eos # (Auto) 0.3 Baso # (Auto) 0.0 Seg Neutrophils % 79.3 H Seg Neutrophils # 6.1 Sodium Potassium Chloride Carbon Dioxide Anion Gap BUN Creatinine Estimated GFR BUN/Creatinine Ratio Glucose POC Glucose 89 Calcium Blood Type B POSITIVE Antibody Screen Negative Crossmatch See Detail 09/13/20 09:58 WBC RBC Hgb Hct MCV MCH MCHC RDW Plt Count Lymph % (Auto) Travis % (Auto) Eos % (Auto) Baso % (Auto) Lymph # (Auto) Travis # (Auto) Eos # (Auto) Baso # (Auto) Seg Neutrophils % Seg Neutrophils # Sodium 142 Potassium 4.4 Chloride 104.5 Carbon Dioxide 21 L Anion Gap 21 BUN 91 H Creatinine 7.1 H Estimated GFR 10 BUN/Creatinine Ratio 13 Glucose 128 H POC Glucose Calcium 8.3 L Blood Type Antibody Screen Crossmatch
[2020-09-13] MEDS ORDERED: SODIUM CHLORIDE 0.9% 500 ML 500 ML IV ONE (13:13)
[2020-09-13] MEDS: EPOETIN ALFA 10,000 UNIT/1 ML INJ SUB-Q PRN (18:07)
[2020-09-13] MEDS: DONEPEZIL 10 MG TAB PO SCH (22:17)
[2020-09-13] MEDS: INSULIN GLARGINE 100 UNITS/ML SUB-Q SCH (22:18)
[2020-09-14] MEDS: INSULIN LISPRO 100 UNIT/ML VIAL 3 mL SUB-Q SCH ×8 (01:44→23:02)
[2020-09-14] MEDS: PANTOPRAZOLE 80 MG in SODIUM CHLORIDE 0.9% 100 ML IV SCH (06:24)
[2020-09-14 06:49] LABS: Hematocrit 20.2 % (35.5-45.6); Hemoglobin 7.1 gm/dl (11.8-15.2)
[2020-09-14 07:14] LABS: Calcium 8.1 mg/dL (8.4-10.2)
[2020-09-14] MEDS: MIDODRINE 5 MG TAB PO SCH ×3 (08:47→17:28)
--- NOTE | 2020-09-14 12:20 | Gastroenterology Progress Note ---
Assessment and Plan 60 yo male with pmh of dementia, DM, PVD, ESRD on HD admitted on 09/04/2020 from [facility] for COVID-19 and for HD. Patient has been awaiting outpatient HD arrangement due to COVID status but has remained asymptomatic. GI consulted for 2 episode of melena. # Melena # Upper GI bleed - new onset of melena on 09/10/2020 - HD stable - H/H stable overnight. - h/o EGD in 2017 with esophagitis Rec - continue with PPI IV drip - hold eliquis, anticoagulation. - monitor H/H serially and transfuse with Hgb goal >7. - tentative plan for EGD/colonoscopy on Wednesday. - if patient has recurrent bleeding leading to hemodynamic instability that requires emergent endoscopy, will need to transfer to outside facility due to GI endoscopy lab not available for emergent cases. - Patient Problems (1) GI bleed Current Visit: No Status: Acute Qualifiers: GI bleed type/associated pathology: unspecified gastrointestinal hemorrhage type Qualified Code(s): K92.2 - Gastrointestinal hemorrhage, unspecified Subjective Date of service: 09/14/20 Principal diagnosis: Melena Interval history: Patient confused. Per nursing, dark stool overnight. Objective - Constitutional Vitals: Temp Pulse Resp BP Pulse Ox 98.4 F 84 14 119/72 96 09/14/20 05:56 09/14/20 05:56 09/14/20 05:56 09/14/20 05:56 09/14/20 09:28 General appearance: no acute distress - Respiratory Respiratory effort: normal - Cardiovascular Rhythm: regular Heart Sounds: Present: S1 & S2 - Gastrointestinal General gastrointestinal: Present: soft, non-tender, non-distended - Labs CBC & Chem 7: 09/14/20 06:19 09/14/20 06:19 Labs: Laboratory Results - last 24 hr 09/10/20 09/13/20 09/14/20 14:40 21:59 06:19 Hgb 7.1 L Hct 20.2 L Sodium Potassium Chloride Carbon Dioxide Anion Gap BUN Creatinine Estimated GFR BUN/Creatinine Ratio Glucose POC Glucose 143 H Calcium Blood Type B POSITIVE Antibody Screen Negative Crossmatch See Detail 09/14/20 09/14/20 09/14/20 06:19 08:37 12:07 Hgb Hct Sodium 140 Potassium 3.6 Chloride 102.8 Carbon Dioxide 30 D Anion Gap 11 BUN 48 H Creatinine 4.8 H Estimated GFR 15 BUN/Creatinine Ratio 10 Glucose 86 POC Glucose 45 L 129 H Calcium 8.1 L Blood Type Antibody Screen Crossmatch
[2020-09-14] MEDS: SEVELAMER CARBONATE 800 MG TAB PO SCH ×2 (12:52→17:28)
[2020-09-14] MEDS: ASPIRIN 81 MG TAB CHEW PO SCH (12:53)
[2020-09-14] MEDS: FOLIC ACID 1 MG TAB PO SCH (12:54)
[2020-09-14] MEDS: CALCITRIOL 0.5 MCG CAP PO SCH (12:55)
[2020-09-14] MEDS: ASCORBIC ACID 500 MG TAB PO SCH ×2 (13:20→23:06)
[2020-09-14] MEDS: THIAMINE 100 MG TAB PO SCH (13:20)
--- NOTE | 2020-09-14 14:08 | Progress Note ---
Subjective Date of service: 09/14/20 Principal diagnosis: Melena Interval history: Assessment and plan: -- ESRD (end stage renal disease) on dialysis Nephrology following -- Hyperkalemia Improved -- Dementia continue home medications. --Diabetes mellitus type 2 Accu-Cheks. resume home insulin dose and insulin sliding scale coverage -- Positive COVID-19 Patient was diagnosed with COVID-19 about 6 days ago before admission. Discussed with ID - no further recommendations --Seizure disorder, cont keppra Severe anemia/melena/GI bleed GI note reviewed Status post 1 unit of PRBC transfusion Posttransfusion hemoglobin is 7.1 Monitor H&H No overt bleed GI note reviewed Scheduled for EGD and colonoscopy on Wednesday -- DVT prophylaxis Hold heparin. SCDs -- Full code status 09/05: Patient is positive for COVID but asymptomatic, no additional treatment needed per ID. CM to arrange to outpt HD where COVID +ve patient could be accommodate. Planned to d/c back to SNF. 09/06: Patient waiting on SNF and HD set up. cont current care 09/07: Getting HD at bedside. Per CM note he cannot resume his outpatient dialysis until he is negative for Covid. Continue to provide supportive care. 09/08; patient need a negative Covid test to resume outpatient dialysis, will order repeat Covid test tomorrow 09/09: Pt covid test is positive. [facility] cannot accept pt back at this time. [facility]. Will continue to follow. 09/10/2020; patient's Covid test is positive yesterday. [facility] cannot accept pt back at this time. Referral faxed to [facility] for placement. Will continue to follow. Patient had dark stool and I ordered a stat H&H, fecal occult blood test, GI consult. Patient has low blood pressure, but he just finished his dialysis and will continue to monitor. If his blood pressure continues to be low we will give him midodrine. 09/11/2020; patient has GI bleed with severe anemia, hemoglobin was 5.4 yesterday and transfused 2 units of blood. CBC was ordered to be done at 4 AM this morning but was not done. I ordered stat CBC. GI consulted and will see the patient today. Will monitor H&H and if needed will transfuse the patient. Nephrology is following for dialysis. Patient has hypertension and was given 250 mL of NS, lactic acid level was elevated yesterday. Likely due to hypotension and GI bleed. Will monitor and adjust as needed. Patient's repeat hemoglobin is 6.4, will transfuse 2 more units of blood. Patient's potassium is 6.[address] Marie is going to do dialysis and in the meantime I will give him calcium gluconate and do EKG. Patient has lactic acidosis improving from yesterday. Patient's prognosis is poor. 09/12/2020; patient has GI bleeding and hemoglobin this morning is 7.6 decreased from 9.1 after 4 units of packed RBC transfusion. Patient was seen by GI and recommend no endoscopy. GI said we will transfer the patient if emergent endoscopy need arises [active bleeding] because we do not have a GI lab to do the scope before Covid positive patients. Anticoagulation discontinued, patient is on IV PPI. Prognosis is guarded CODE STATUS is DNR/DNI; discussed with his brother over the phone yesterday. 09/13/20 patient is alert, no specific complaints, wants to eat, GI and nephrology notes reviewed. Lab results reviewed We will transfuse 1 unit of PRBC, will start the patient on clear liquids per review of GI note 09/14 no complaints . GI note reviewed. Lab results reviewed. Scheduled for EGD/colonoscopy on Wednesday History Interval history: Patient was seen and evaluated this morning Patient does not communicate, not cooperative Hospitalist Physical - Physical exam Narrative exam: Not in distress. Alert, wants to eat Vital signs as documented. Head exam is unremarkable. No scleral icterus . Neck is without jugular venous distension Lungs are clear to auscultation. Cardiac exam reveals regular rate and Rhythm. Abdominal exam reveals normal bowel sounds, nontender Extremities left BKA, right AKA. 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 Objective - Constitutional Vitals: Vital Signs - 12hr 09/14/20 09/14/20 09/14/20 05:56 09:28 10:49 Temperature 98.4 F 97.0 F L Pulse Rate 84 80 Respiratory 14 18 Rate Blood Pressure 119/72 138/62 O2 Sat by Pulse 96 96 96 Oximetry - Labs CBC & Chem 7: 09/14/20 06:19 09/14/20 06:19 Labs: Abnormal lab results 09/10/20 09/13/2021 Range/Units 14:40 21:59 06:19 Hgb 7.1 L (11.8-15.2) gm/dl Hct 20.2 L (35.5-45.6) % BUN (9-20) mg/dL Creatinine (0.8-1.3) mg/dL POC Glucose 143 H (70-105) mg/dL Calcium (8.4-10.2) mg/dL Crossmatch See Detail 09/14/20 09/14/20 09/14/20 Range/Units 06:19 08:37 12:07 Hgb (11.8-15.2) gm/dl Hct (35.5-45.6) % BUN 48 H (9-20) mg/dL Creatinine 4.8 H (0.8-1.3) mg/dL POC Glucose 45 L 129 H (70-105) mg/dL Calcium 8.1 L (8.4-10.2) mg/dL Crossmatch
--- NOTE | 2020-09-14 15:48 | Progress Note ---
Assessment and Plan 1. ESRD: Patient is on maintenance hemodialysis three times a week, TTS schedule. Missed HD on 09/02 and 09/04. Hemodialysis: 09/05, 09/07, 09/10, 09/11. 2. FEN: Hypocalcemia, Cinacalcet stopped, monitor. Hyperkalemia, improved. Monitor. 3. Anemia: PRBC as needed. Epogen as needed. Monitor. 4. COVID infection: CXR normal. No hypoxia. Seen by ID. 5. GI bleed: Seen by GI. 6. Anemia: 2/2 GI bleed. S/p multiple units of PRBC. Monitor. 7. Hyperparathyroidism: Cinacalcet stopped due to hypocalcemia. On Calcitriol. 8. PVD: S/p b/l LE amputation. 9. DM type 2. 10. Seizure disorder. Subjective: The patient was not examined today. However the examination findings from other providers noted. The current and previous medical records are reviewed in detail as are laboratory and imaging data reviewed when appropriate. Medications being given are also reviewed. In addition the case has been discussed with the attending hospitalist and the nurse when needed. New renal recommendations as above. Examination: Subjective Date of service: 09/14/20 Principal diagnosis: Melena Objective - Vital Signs Vital signs: Vital Signs - 12hr 09/14/20 09/14/20 09/14/20 05:56 09:28 10:49 Temperature 98.4 F 97.0 F L Pulse Rate 84 80 Respiratory 14 18 Rate Blood Pressure 119/72 138/62 O2 Sat by Pulse 96 96 96 Oximetry - Lab 09/16/20 13:41 09/16/20 13:41 Most recent lab results Calcium 8.1 mg/dL (8.4-10.2) L 09/14/20 06:19 Medications & Allergies - Medications Allergies/Adverse Reactions: Allergies Penicillins Allergy (Verified 07/11/19 17:31) Unknown Home Medications: Home Medications Medication Instructions Recorded Confirmed Last Taken Type diphenhydrAMINE [Benadryl CAP] 25 mg PO Q6HR PRN 12/27/16 09/04/20 05/24/19 History Insulin Lispro [Humalog 100 See Protocol SQ AC 02/14/17 09/04/20 05/22/19 History UNITS/ML Kwikpen] Donepezil HCl 10 mg PO QHS 11/10/18 09/04/20 05/25/19 History Sevelamer Carbonate 2,400 mg PO TIDWM 11/10/18 09/04/20 05/25/19 History Epoetin Darvin 10,000 Unit [Procrit] 10,000 unit IJ PRN 07/11/19 09/04/20 Unknown History ALBUTEROL NEB's [Proventil 0.083% 2.5 mg IH Q4HRT PRN #30 nebu 11/07/19 09/04/20 Unknown Rx NEBS] Ascorbic Acid [Vitamin C] 500 mg PO BID #60 tablet 11/07/19 09/04/20 Unknown Rx AtorvaSTATin [Lipitor] 40 mg PO QHS #30 tablet 11/07/19 09/04/20 Unknown Rx Cinacalcet [Sensipar] 30 mg PO QDAY #30 tablet 11/07/19 09/04/20 Unknown Rx Ferrous Sulfate [Feosol 325 MG tab] 325 mg PO BID #60 tablet 11/07/19 09/04/20 Unknown Rx Folic Acid [Folvite] 1 mg PO DAILY #30 tablet 11/07/19 09/04/20 Unknown Rx Thiamine [Vitamin B-1] 100 mg PO DAILY #30 tablet 11/07/19 09/04/20 Unknown Rx bisacodyL [Dulcolax tab] 10 mg PO QDAY PRN #30 tablet 11/07/19 09/04/20 Unknown Rx levETIRAcetam [Keppra TAB] 250 mg PO BID #30 tablet 11/07/19 09/04/20 05/25/19 Rx Aspirin [Aspirin BABY CHEW TAB] 81 mg PO QDAY #30 tab.chew 09/17/20 09/04/20 Unknown Rx Insulin Glargine [Lantus VIAL] 10 units SUB-Q QHS units 09/17/20 Unknown Rx Insulin Lispro [Humalog] 0 unit SUB-Q ACHS vial 09/17/20 Unknown Rx Insulin Lispro [Humalog] 5 unit SUB-Q AC vial 09/17/20 Unknown Rx Pantoprazole [Protonix TAB] 40 mg PO BID #15 tablet 09/17/20 09/04/20 Unknown Rx amLODIPine 5 mg PO QDAY tablet 09/17/20 Unknown Rx Active Medications: Generic Name Dose Route Start Last Admin Trade Name Freq PRN Reason Stop Dose Admin Acetaminophen 650 mg 09/05/20 00:06 Acetaminophen 325 Mg Tab PO Q4H PRN Pain MILD(1-3)/Fever >100.5/DINERO Albuterol 2.5 mg 09/06/20 22:19 Albuterol 2.5 Mg/3 Ml Nebu IH Q4HRT PRN Shortness Of Breath Ascorbic Acid 500 mg 09/07/20 10:00 09/14/20 13:20 Ascorbic Acid 500 Mg Tab PO Not Given BID LUZ Aspirin 81 mg 09/07/20 10:00 09/14/20 12:53 Aspirin 81 Mg Tab Chew PO 81 mg QDAY LUZ Administration Atorvastatin Calcium 40 mg 09/07/20 22:00 09/13/20 22:18 Atorvastatin 40 Mg Tab PO 40 mg QHS LUZ Administration Bisacodyl 10 mg 09/06/20 22:19 Bisacodyl 5 Mg Tab PO QDAY PRN Constipation Calcitriol 0.5 mcg 09/11/20 10:00 09/14/20 12:55 Calcitriol 0.5 Mcg Cap PO 0.5 mcg QDAY LUZ Administration Dextrose 50 ml 09/05/20 00:06 09/14/20 08:47 Dextrose 50% In Water (25gm) 50 Ml Syringe IV 50 ml Q30MIN PRN Administration Hypoglycemia Protocol Donepezil HCl 10 mg 09/07/20 22:00 09/13/20 22:17 Donepezil 10 Mg Tab PO 10 mg QHS LUZ Administration Epoetin Darvin 10,000 unit 09/06/20 20:24 09/13/20 18:07 Epoetin Darvin 10,000 Unit/1 Ml Inj SUB-Q 10,000 unit CORBY PRN Administration hemodialysis Folic Acid 1 mg 09/07/20 10:00 09/14/20 12:54 Folic Acid 1 Mg Tab PO 1 mg DAILY LUZ Administration Heparin Sodium (Porcine) 3,000 unit 09/05/20 08:28 09/07/20 15:34 Heparin 10,000 Units/10 Ml Vial IV 3,000 unit CORBY PRN Administration hemodialysis Sodium Chloride 100 mls @ 999 mls/hr 09/11/20 13:55 Nacl 0.9% IV CORBY PRN Hypotension Levetiracetam 250 mg/ Sodium 52.5 mls @ 157.5 mls/hr 09/11/20 22:00 09/14/20 11:00 Chloride IV 157.5 mls/hr Q12HR LUZ Administration Insulin Glargine 10 units 09/07/20 22:00 09/13/20 22:18 Insulin Glargine 100 Units/Ml SUB-Q 10 units QHS LUZ Administration Insulin Human Lispro 0 unit 09/05/20 07:30 09/14/20 13:20 Insulin Lispro 100 Unit/Ml Vial 3 Ml SUB-Q Not Given ACHS [facility] Protocol Insulin Human Lispro 5 unit 09/07/20 07:30 09/14/20 13:20 Insulin Lispro 100 Unit/Ml Vial 3 Ml SUB-Q Not Given AC LUZ Magnesium Hydroxide 30 ml 09/05/20 00:06 Magnesium Hydroxide (Mom) Oral Liqd Udc PO Q4H PRN Constipation Midodrine 5 mg 09/10/20 14:30 09/14/20 13:21 Midodrine 5 Mg Tab PO 5 mg TID@0800,1200,1700 LUZ Administration Morphine Sulfate 2 mg 09/05/20 00:06 Morphine 2 Mg/1 Ml Inj IV Q4H PRN Pain, Moderate (4-6) Ondansetron HCl 4 mg 09/05/20 00:06 09/10/20 15:21 Ondansetron 4 Mg/2 Ml Inj IV 4 mg Q8H PRN Administration Nausea And Vomiting Pantoprazole Sodium 40 mg 09/14/20 22:00 Pantoprazole 40 Mg Inj IV BID LUZ Polyethylene Glycol/Electrolytes 4,000 ml 09/15/20 17:00 Polyethylene Glycol/Elect Soln 4000 Ml PO 09/15/20 17:01 ONCE ONE Sevelamer Carbonate 2,400 mg 09/07/20 08:00 09/14/20 12:52 Sevelamer Carbonate 800 Mg Tab PO Not Given TIDWM LUZ Sodium Chloride 10 ml 09/05/20 10:00 09/14/20 12:55 Sodium Chloride 0.9% 10 Ml Flush Syringe IV 10 ml BID LUZ Administration Sodium Chloride 10 ml 09/05/20 00:06 Sodium Chloride 0.9% 10 Ml Flush Syringe IV PRN PRN LINE FLUSH Thiamine HCl 100 mg 09/07/20 10:00 09/14/20 13:20 Thiamine 100 Mg Tab PO Not Given DAILY LUZ
[2020-09-14] MEDS: DONEPEZIL 10 MG TAB PO SCH (23:04)
[2020-09-14] MEDS: PANTOPRAZOLE 40 MG INJ IV SCH (23:05)
[2020-09-14] MEDS: INSULIN GLARGINE 100 UNITS/ML SUB-Q SCH (23:18)
[2020-09-15 06:32] LABS: Hematocrit 22.6 % (35.5-45.6); Hemoglobin 7.6 gm/dl (11.8-15.2)
[2020-09-15] MEDS: INSULIN LISPRO 100 UNIT/ML VIAL 3 mL SUB-Q SCH ×7 (09:37→23:50)
[2020-09-15] MEDS: PANTOPRAZOLE 40 MG INJ IV SCH ×2 (09:38→23:17)
[2020-09-15] MEDS: CALCITRIOL 0.5 MCG CAP PO SCH (09:38)
[2020-09-15] MEDS: SEVELAMER CARBONATE 800 MG TAB PO SCH ×3 (09:38→18:16)
[2020-09-15] MEDS: ASPIRIN 81 MG TAB CHEW PO SCH (09:38)
[2020-09-15] MEDS: ASCORBIC ACID 500 MG TAB PO SCH ×2 (09:39→23:51)
[2020-09-15] MEDS: THIAMINE 100 MG TAB PO SCH (09:39)
[2020-09-15] MEDS: FOLIC ACID 1 MG TAB PO SCH (09:40)
[2020-09-15] MEDS: MIDODRINE 5 MG TAB PO SCH ×3 (09:40→18:16)
--- NOTE | 2020-09-15 10:54 | Gastroenterology Progress Note ---
Assessment and Plan Melena 09/10 s/p PRBC, Hgb trending down rapidly again but given no overt bleeding no evidence for active GI bleed, therefore need to r/o other source of blood loss including hemolysis, non GI blood loss, etc Hold anticoagulation and cont PPI BID, clear liquid diet today and golytely tonight and EGD/colon tomorrow. Attempted to call sister and brother but no answer at all numbers on chart - if patient has recurrent bleeding leading to hemodynamic instability that requires emergent endoscopy, will need to transfer to outside facility due to GI endoscopy lab not available for emergent cases. - Patient Problems (1) GI bleed Current Visit: No Status: Acute Qualifiers: GI bleed type/associated pathology: unspecified gastrointestinal hemorrhage type Qualified Code(s): K92.2 - Gastrointestinal hemorrhage, unspecified Subjective Date of service: 09/15/20 Principal diagnosis: Melena Interval history: Hgb stable for now, no documented overt bleeding Patient denies abd pain but is lethargic Prep today for EGD/colon tomorrow Objective - Constitutional Vitals: Temp Pulse Resp BP Pulse Ox 98.4 F 91 H 20 143/66 94 09/15/20 04:37 09/15/20 04:37 09/15/20 04:37 09/15/20 04:37 09/15/20 04:37 General appearance: no acute distress - Gastrointestinal General gastrointestinal: Present: soft - Labs CBC & Chem 7: 09/15/20 05:17 09/14/20 06:19 Labs: Laboratory Results - last 24 hr 09/14/20 09/14/20 09/14/20 12:07 15:51 21:59 Hgb Hct POC Glucose 129 H 113 H 135 H 09/15/20 09/15/20 05:17 07:41 Hgb 7.6 L Hct 22.6 L POC Glucose 105
--- NOTE | 2020-09-15 12:15 | Progress Note ---
Assessment and Plan 1. ESRD: Patient is on maintenance hemodialysis three times a week, TTS schedule. Missed HD on 09/02 and 09/04. Hemodialysis: 09/05, 09/07, 09/10, 09/11, 09/13. 2. FEN: Hypocalcemia, Cinacalcet stopped, monitor. Hyperkalemia, improved. Monitor. 3. Anemia: PRBC as needed. Epogen as needed. Monitor. 4. COVID infection: CXR normal. No hypoxia. Seen by ID. 5. GI bleed: Seen by GI. 6. Anemia: 2/2 GI bleed. S/p multiple units of PRBC. Monitor. 7. Hyperparathyroidism: Cinacalcet stopped due to hypocalcemia. On Calcitriol. 8. PVD: S/p b/l LE amputation. 9. DM type 2. 10. Seizure disorder. Subjective: The patient was not examined today. However the examination findings from other providers noted. The current and previous medical records are reviewed in detail as are laboratory and imaging data reviewed when appropriate. Medications being given are also reviewed. In addition the case has been discussed with the attending hospitalist and the nurse when needed. New renal recommendations as above. Examination: Subjective Date of service: 09/15/20 Principal diagnosis: Melena Objective - Vital Signs Vital signs: Vital Signs - 12hr 09/15/20 09/15/20 04:37 11:27 Temperature 98.4 F Pulse Rate 91 H Respiratory 20 Rate Blood Pressure 143/66 O2 Sat by Pulse 94 95 Oximetry - Lab 09/16/20 13:41 09/16/20 13:41 Most recent lab results Calcium 8.1 mg/dL (8.4-10.2) L 09/14/20 06:19 Medications & Allergies - Medications Allergies/Adverse Reactions: Allergies Penicillins Allergy (Verified 07/11/19 17:31) Unknown Home Medications: Home Medications Medication Instructions Recorded Confirmed Last Taken Type diphenhydrAMINE [Benadryl CAP] 25 mg PO Q6HR PRN 12/27/16 09/04/20 05/24/19 History Insulin Lispro [Humalog 100 See Protocol SQ AC 02/14/17 09/04/20 05/22/19 History UNITS/ML Kwikpen] Donepezil HCl 10 mg PO QHS 11/10/18 09/04/20 05/25/19 History Sevelamer Carbonate 2,400 mg PO TIDWM 11/10/18 09/04/20 05/25/19 History Epoetin Darvin 10,000 Unit [Procrit] 10,000 unit IJ PRN 07/11/19 09/04/20 Unknown History ALBUTEROL NEB's [Proventil 0.083% 2.5 mg IH Q4HRT PRN #30 nebu 11/07/19 09/04/20 Unknown Rx NEBS] Ascorbic Acid [Vitamin C] 500 mg PO BID #60 tablet 11/07/19 09/04/20 Unknown Rx AtorvaSTATin [Lipitor] 40 mg PO QHS #30 tablet 11/07/19 09/04/20 Unknown Rx Cinacalcet [Sensipar] 30 mg PO QDAY #30 tablet 11/07/19 09/04/20 Unknown Rx Ferrous Sulfate [Feosol 325 MG tab] 325 mg PO BID #60 tablet 11/07/19 09/04/20 Unknown Rx Folic Acid [Folvite] 1 mg PO DAILY #30 tablet 11/07/19 09/04/20 Unknown Rx Thiamine [Vitamin B-1] 100 mg PO DAILY #30 tablet 11/07/19 09/04/20 Unknown Rx bisacodyL [Dulcolax tab] 10 mg PO QDAY PRN #30 tablet 11/07/19 09/04/20 Unknown Rx levETIRAcetam [Keppra TAB] 250 mg PO BID #30 tablet 11/07/19 09/04/20 05/25/19 Rx Aspirin [Aspirin BABY CHEW TAB] 81 mg PO QDAY #30 tab.chew 09/17/20 09/04/20 Unknown Rx Insulin Glargine [Lantus VIAL] 10 units SUB-Q QHS units 09/17/20 Unknown Rx Insulin Lispro [Humalog] 0 unit SUB-Q ACHS vial 09/17/20 Unknown Rx Insulin Lispro [Humalog] 5 unit SUB-Q AC vial 09/17/20 Unknown Rx Pantoprazole [Protonix TAB] 40 mg PO BID #15 tablet 09/17/20 09/04/20 Unknown Rx amLODIPine 5 mg PO QDAY tablet 09/17/20 Unknown Rx Active Medications: Generic Name Dose Route Start Last Admin Trade Name Freq PRN Reason Stop Dose Admin Acetaminophen 650 mg 09/05/20 00:06 Acetaminophen 325 Mg Tab PO Q4H PRN Pain MILD(1-3)/Fever >100.5/DINERO Albuterol 2.5 mg 09/06/20 22:19 Albuterol 2.5 Mg/3 Ml Nebu IH Q4HRT PRN Shortness Of Breath Ascorbic Acid 500 mg 09/07/20 10:00 09/15/20 09:39 Ascorbic Acid 500 Mg Tab PO 500 mg BID LUZ Administration Aspirin 81 mg 09/07/20 10:00 09/15/20 09:38 Aspirin 81 Mg Tab Chew PO 81 mg QDAY LUZ Administration Atorvastatin Calcium 40 mg 09/07/20 22:00 09/14/20 23:05 Atorvastatin 40 Mg Tab PO 40 mg QHS LUZ Administration Bisacodyl 10 mg 09/06/20 22:19 Bisacodyl 5 Mg Tab PO QDAY PRN Constipation Bisacodyl 10 mg 09/15/20 11:00 Bisacodyl 5 Mg Tab PO 09/15/20 14:00 ONCE LUZ Calcitriol 0.5 mcg 09/11/20 10:00 09/15/20 09:38 Calcitriol 0.5 Mcg Cap PO 0.5 mcg QDAY LUZ Administration Dextrose 50 ml 09/05/20 00:06 09/14/20 08:47 Dextrose 50% In Water (25gm) 50 Ml Syringe IV 50 ml Q30MIN PRN Administration Hypoglycemia Protocol Donepezil HCl 10 mg 09/07/20 22:00 09/14/20 23:04 Donepezil 10 Mg Tab PO 10 mg QHS LUZ Administration Epoetin Darvin 10,000 unit 09/06/20 20:24 09/13/20 18:07 Epoetin Darvin 10,000 Unit/1 Ml Inj SUB-Q 10,000 unit CORBY PRN Administration hemodialysis Folic Acid 1 mg 09/07/20 10:00 09/15/20 09:40 Folic Acid 1 Mg Tab PO 1 mg DAILY LUZ Administration Heparin Sodium (Porcine) 3,000 unit 09/05/20 08:28 09/07/20 15:34 Heparin 10,000 Units/10 Ml Vial IV 3,000 unit CORBY PRN Administration hemodialysis Sodium Chloride 100 mls @ 999 mls/hr 09/11/20 13:55 Nacl 0.9% IV CORBY PRN Hypotension Levetiracetam 250 mg/ Sodium 52.5 mls @ 157.5 mls/hr 09/11/20 22:00 09/15/20 09:39 Chloride IV 157.5 mls/hr Q12HR LUZ Administration Insulin Glargine 10 units 09/07/20 22:00 09/14/20 23:18 Insulin Glargine 100 Units/Ml SUB-Q Not Given QHS LUZ Insulin Human Lispro 0 unit 09/05/20 07:30 09/15/20 09:37 Insulin Lispro 100 Unit/Ml Vial 3 Ml SUB-Q Not Given ACHS [facility] Protocol Insulin Human Lispro 5 unit 09/07/20 07:30 09/15/20 09:38 Insulin Lispro 100 Unit/Ml Vial 3 Ml SUB-Q Not Given AC [facility] Magnesium Hydroxide 30 ml 09/05/20 00:06 Magnesium Hydroxide (Mom) Oral Liqd Udc PO Q4H PRN Constipation Midodrine 5 mg 09/10/20 14:30 09/15/20 09:40 Midodrine 5 Mg Tab PO 5 mg TID@0800,1200,1700 LUZ Administration Morphine Sulfate 2 mg 09/05/20 00:06 Morphine 2 Mg/1 Ml Inj IV Q4H PRN Pain, Moderate (4-6) Ondansetron HCl 4 mg 09/05/20 00:06 09/10/20 15:21 Ondansetron 4 Mg/2 Ml Inj IV 4 mg Q8H PRN Administration Nausea And Vomiting Pantoprazole Sodium 40 mg 09/14/20 22:00 09/15/20 09:38 Pantoprazole 40 Mg Inj IV 40 mg BID LUZ Administration Polyethylene Glycol/Electrolytes 4,000 ml 09/15/20 17:00 Polyethylene Glycol/Elect Soln 4000 Ml PO 09/15/20 17:01 ONCE ONE Sevelamer Carbonate 2,400 mg 09/07/20 08:00 09/15/20 09:38 Sevelamer Carbonate 800 Mg Tab PO 2,400 mg TIDWM LUZ Administration Sodium Chloride 10 ml 09/05/20 10:00 09/15/20 09:39 Sodium Chloride 0.9% 10 Ml Flush Syringe IV 10 ml BID LUZ Administration Sodium Chloride 10 ml 09/05/20 00:06 Sodium Chloride 0.9% 10 Ml Flush Syringe IV PRN PRN LINE FLUSH Thiamine HCl 100 mg 09/07/20 10:00 09/15/20 09:39 Thiamine 100 Mg Tab PO 100 mg DAILY LUZ Administration
--- NOTE | 2020-09-15 13:49 | Progress Note ---
Subjective Date of service: 09/15/20 Principal diagnosis: Melena Interval history: Assessment and plan: -- ESRD (end stage renal disease) on dialysis Nephrology following -- Hyperkalemia Improved -- Dementia continue home medications. --Diabetes mellitus type 2 Accu-Cheks. resume home insulin dose and insulin sliding scale coverage -- Positive COVID-19 Patient was diagnosed with COVID-19 about 6 days ago before admission. Discussed with ID - no further recommendations --Seizure disorder, cont keppra Severe anemia/melena/GI bleed GI note reviewed Status post 1 unit of PRBC transfusion Posttransfusion hemoglobin is 7.1 > 7.6 today Monitor H&H No overt bleed GI note reviewed Scheduled for EGD and colonoscopy on Wednesday -- DVT prophylaxis Hold heparin. SCDs -- Full code status 09/05: Patient is positive for COVID but asymptomatic, no additional treatment needed per ID. CM to arrange to outpt HD where COVID +ve patient could be accommodate. Planned to d/c back to SNF. 09/06: Patient waiting on SNF and HD set up. cont current care 09/07: Getting HD at bedside. Per CM note he cannot resume his outpatient dialysis until he is negative for Covid. Continue to provide supportive care. 09/08; patient need a negative Covid test to resume outpatient dialysis, will order repeat Covid test tomorrow 09/09: Pt covid test is positive. [facility] cannot accept pt back at this time. Referral faxed to [facility] for placement. Will continue to follow. 09/10/2020; patient's Covid test is positive yesterday. [facility] cannot accept pt back at this time. Referral faxed to [facility] for placement. Will continue to follow. Patient had dark stool and I ordered a stat H&H, fecal occult blood test, GI consult. Patient has low blood pressure, but he just finished his dialysis and will continue to monitor. If his blood pressure continues to be low we will give him midodrine. 09/11/2020; patient has GI bleed with severe anemia, hemoglobin was 5.4 yesterday and transfused 2 units of blood. CBC was ordered to be done at 4 AM this morning but was not done. I ordered stat CBC. GI consulted and will see the patient today. Will monitor H&H and if needed will transfuse the patient. Nephrology is following for dialysis. Patient has hypertension and was given 250 mL of NS, lactic acid level was elevated yesterday. Likely due to hypotension and GI bleed. Will monitor and adjust as needed. Patient's repeat hemoglobin is 6.4, will transfuse 2 more units of blood. Patient's potassium is 6.[address] Marie is going to do dialysis and in the meantime I will give him calcium gluconate and do EKG. Patient has lactic acidosis improving from yesterday. Patient's prognosis is poor. 09/12/2020; patient has GI bleeding and hemoglobin this morning is 7.6 decreased from 9.1 after 4 units of packed RBC transfusion. Patient was seen by GI and recommend no endoscopy. GI said we will transfer the patient if emergent endoscopy need arises [active bleeding] because we do not have a GI lab to do the scope before Covid positive patients. Anticoagulation discontinued, patient is on IV PPI. Prognosis is guarded CODE STATUS is DNR/DNI; discussed with his brother over the phone yesterday. 09/13/20 patient is alert, no specific complaints, wants to eat, GI and nephrology notes reviewed. Lab results reviewed We will transfuse 1 unit of PRBC, will start the patient on clear liquids per review of GI note 09/14 no complaints . GI note reviewed. Lab results reviewed. Scheduled for EGD/colonoscopy on Wednesday History Interval history: Patient was seen and evaluated this morning Patient does not communicate, not cooperative Hospitalist Physical - Physical exam Narrative exam: Not in distress. Alert, wants to eat Vital signs as documented. Head exam is unremarkable. No scleral icterus . Neck is without jugular venous distension Lungs are clear to auscultation. Cardiac exam reveals regular rate and Rhythm. Abdominal exam reveals normal bowel sounds, nontender Extremities left BKA, right AKA. [employer]: Alert Objective - Constitutional Vitals: Vital Signs - 12hr 09/15/20 09/15/20 09/15/20 04:37 11:27 11:48 Temperature 98.4 F 99.0 F Pulse Rate 91 H 81 Respiratory 20 18 Rate Blood Pressure 143/66 193/82 O2 Sat by Pulse 94 95 96 Oximetry - Labs CBC & Chem 7: 09/15/20 05:17 09/14/20 06:19 Labs: Abnormal lab results 09/14/20 09/14/20 09/15/20 Range/Units 15:51 21:59 05:17 Hgb 7.6 L (11.8-15.2) gm/dl Hct 22.6 L (35.5-45.6) % POC Glucose 113 H 135 H (70-105) mg/dL 09/15/20 Range/Units 11:03 Hgb (11.8-15.2) gm/dl Hct (35.5-45.6) % POC Glucose 143 H (70-105) mg/dL
--- NOTE | 2020-09-15 15:49 | XRay Report ---
XR abdomen 1V ap INDICATION / CLINICAL INFORMATION: verify dobhoff for feeding. Abdomen supine COMPARISON: None available. FINDINGS: Dobbhoff feeding tube is projected over the proximal stomach. Signer Name: Irvin Lao MD Signed: 09/15/2020 3:45 PM Workstation Name: [id number]
[2020-09-15] MEDS ORDERED: POLYETHYLENE GLYCOL/ELECT SOLN 4000 ML PO ONE (17:00)
[2020-09-15 21:27] LABS: Hematocrit 24.8 % (35.5-45.6); Hemoglobin 8.3 gm/dl (11.8-15.2)
[2020-09-15] MEDS: DONEPEZIL 10 MG TAB PO SCH (23:17)
[2020-09-15] MEDS ORDERED: hydrALAZINE 20 MG/1 ML INJ IV ONE (23:56)
[2020-09-16] MEDS ORDERED: WATER FOR IRRIG STERILE 1,000 ML BOTTLE ONE (07:49)
[2020-09-16] MEDS ORDERED: SODIUM CHLORIDE 0.9% 1000 ML 1,000 ML ONE (08:48)
--- NOTE | 2020-09-16 08:52 | Progress Note ---
Subjective Date of service: 09/16/20 Principal diagnosis: Melena Interval history: Assessment and plan: -- ESRD (end stage renal disease) on dialysis Nephrology following -- Hyperkalemia Improved -- Dementia continue home medications. --Diabetes mellitus type 2 Accu-Cheks. resume home insulin dose and insulin sliding scale coverage -- Positive COVID-19 Patient was diagnosed with COVID-19 about 6 days ago before admission. Discussed with ID - no further recommendations --Seizure disorder, cont keppra Severe anemia/melena/GI bleed GI note reviewed Status post 1 unit of PRBC transfusion Posttransfusion hemoglobin is 7.1 > 7.6 > 8 today Monitor H&H No overt bleed GI note reviewed s/p EGD and colonoscopy findings reviewed Hypertension Patient's blood pressure has been consistently high Start on amlodipine 5 mg daily Continue midodrine for hypotension -- DVT prophylaxis Hold heparin. SCDs -- Full code status 09/05: Patient is positive for COVID but asymptomatic, no additional treatment needed per ID. CM to arrange to outpt HD where COVID +ve patient could be accommodate. Planned to d/c back to SNF. 09/06: Patient waiting on SNF and HD set up. cont current care 09/07: Getting HD at bedside. Per CM note he cannot resume his outpatient dialysis until he is negative for Covid. Continue to provide supportive care. 09/08; patient need a negative Covid test to resume outpatient dialysis, will order repeat Covid test tomorrow 09/09: Pt covid test is positive. [facility] cannot accept pt back at this time. Referral faxed to [facility], [place] for placement. Will continue to follow. 09/10/2020; patient's Covid test is positive yesterday. [facility] cannot accept pt back at this time. Referral faxed to [facility], [place] for placement. Will continue to follow. Patient had dark stool and I ordered a stat H&H, fecal occult blood test, GI consult. Patient has low blood pressure, but he just finished his dialysis and will continue to monitor. If his blood pressure continues to be low we will give him midodrine. 09/11/2020; patient has GI bleed with severe anemia, hemoglobin was 5.4 yesterday and transfused 2 units of blood. CBC was ordered to be done at 4 AM this morning but was not done. I ordered stat CBC. GI consulted and will see the patient today. Will monitor H&H and if needed will transfuse the patient. Nephrology is following for dialysis. Patient has hypertension and was given 250 mL of NS, lactic acid level was elevated yesterday. Likely due to hypotension and GI bleed. Will monitor and adjust as needed. Patient's repeat hemoglobin is 6.4, will transfuse 2 more units of blood. Patient's potassium is 6.[address] Marie is going to do dialysis and in the meantime I will give him calcium gluconate and do EKG. Patient has lactic acidosis improving from yesterday. Patient's prognosis is poor. 09/12/2020; patient has GI bleeding and hemoglobin this morning is 7.6 decreased from 9.1 after 4 units of packed RBC transfusion. Patient was seen by GI and recommend no endoscopy. GI said we will transfer the patient if emergent endoscopy need arises [active bleeding] because we do not have a GI lab to do the scope before Covid positive patients. Anticoagulation discontinued, patient is on IV PPI. Prognosis is guarded CODE STATUS is DNR/DNI; discussed with his brother over the phone yesterday. 09/13/20 patient is alert, no specific complaints, wants to eat, GI and nephrology notes reviewed. Lab results reviewed We will transfuse 1 unit of PRBC, will start the patient on clear liquids per review of GI note 09/14 no complaints . GI note reviewed. Lab results reviewed. Scheduled for EGD/colonoscopy on Saturday 09/16 awake and alert,, no complaints, lab results reviewed, BP is consistently high, EGD and colonoscopy findings reviewed History Interval history: Patient was seen and evaluated this morning Patient does not communicate, not cooperative Hospitalist Physical - Physical exam Narrative exam: Not in distress. Alert, wants to eat Vital signs as documented. Head exam is unremarkable. No scleral icterus . Neck is without jugular venous distension Lungs are clear to auscultation. Cardiac exam reveals regular rate and Rhythm. Abdominal exam reveals normal bowel sounds, nontender Extremities left BKA, right AKA. 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 Objective - Constitutional Vitals: Vital Signs - 12hr 09/15/20 09/15/20 09/15/20 22:00 22:39 23:42 Temperature 98.2 F 98.2 F Pulse Rate 87 Respiratory 16 17 Rate Respiratory 17 Rate [no s/s] Blood Pressure 179/100 O2 Sat by Pulse 100 Oximetry 09/16/20 09/16/20 09/16/20 00:00 05:27 05:39 Temperature 97.4 F L Pulse Rate 77 77 Respiratory 18 17 Rate Respiratory Rate [no s/s] Blood Pressure 188/74 188/74 O2 Sat by Pulse 99 Oximetry - Labs CBC & Chem 7: 09/16/20 13:41 09/16/20 13:41 Labs: Abnormal lab results 09/15/20 09/15/20 09/15/20 Range/Units 11:03 16:13 20:56 Hgb 8.3 L (11.8-15.2) gm/dl Hct 24.8 L (35.5-45.6) % POC Glucose 143 H 130 H (70-105) mg/dL 09/15/20 Range/Units 23:19 Hgb (11.8-15.2) gm/dl Hct (35.5-45.6) % POC Glucose 120 H (70-105) mg/dL
--- NOTE | 2020-09-16 09:06 | Anesthesia Consultation ---
Anesthesia Consult and Med Hx - Airway Anesthetic Teeth Evaluation: Poor (one remaining tooth) Mallampati Class: Class III Intubation Access Assessment: Possibly Difficult - Pulmonary Exam CTA: No (easy work of breathing) - Cardiac Exam Cardiac Exam: RRR - Pre-Operative Health Status ASA Pre-Surgery Classification: ASA4 Proposed Anesthetic Plan: MAC - Pulmonary Hx Respiratory Symptoms: No Hx Pneumonia: No (COVID+ prior to admission, current asymptomatic) - Cardiovascular System Hx Hypertension: Yes Hx Heart Attack/AMI: No Hx Peripheral Vascular Disease: Yes (anticogulation held) - Central Nervous System Hx Seizures: Yes CVA: Yes Hx Psychiatric Problems: Yes (dementia) - Gastrointestinal Hx Gastroesophageal Reflux Disease: Yes - Endocrine Hx End Stage Renal Disease: Yes Hx Insulin Dependent Diabetes: Yes Hx Thyroid Disease: No - Hematic Hx Anemia: Yes (2/2 GI bleed) - Additional Comments Anesthesia Medical History Comments: Per chart review, initial COVID + result approx 6 days prior to 09/05 admission date. Patient denies symptoms. Room air to 2L NC while inpatient.
--- NOTE | 2020-09-16 09:11 | Anesthesia Day of Surgery ---
Anesthesia Day of Surgery - Day of Surgery Patient Examined: Yes Patient H&P Reviewed: Yes Patient is NPO: Yes
[2020-09-16] MEDS ORDERED: SODIUM CHLORIDE 0.9% 1000 ML 1,000 ML IV SCH (09:30)
[2020-09-16] MEDS ORDERED: propofoL 200 MG/20 ML VIAL IV ONE (09:43)
[2020-09-16] MEDS ORDERED: fentaNYL 100 MCG/2 ML INJ ONE (09:43)
[2020-09-16] MEDS ORDERED: LIDOCAINE MPF (2%) 20 MG/1 ML VIAL 5 ML ONE (09:43)
[2020-09-16] MEDS ORDERED: SIMETHICONE 40 MG/0.6 ML ORAL DROP 30ML PO ONE (10:00)
[2020-09-16] MEDS ORDERED: PHENYLEPHRINE/NS 1,000 MCG/10 ML SYRINGE (OR USE) IV ONE (10:07)
--- NOTE | 2020-09-16 10:30 | Operative Report ---
Operative Report Operative Report: DOS: 09/16/2020 SURGEON: Deng Meza MD EGD REPORT PREOPERATIVE DIAGNOSIS and POSTOPERATIVE DIAGNOSIS: Anemia due to gastrointestinal blood loss ESTIMATED BLOOD LOSS: None DESCRIPTION OF PROCEDURE: A high-resolution EGD scope was passed through the oropharynx, esophagus, stomach, and third portion of duodenum. The scope was carefully withdrawn. Retroflexion was performed in the stomach. At the end of the procedure, the scope was cleaned using normal technique. Vital signs monitored continuously throughout. SEDATION: Provided by Anesthesiology Services. COMPLICATIONS: None. FINDINGS: * Normal second and third portions of the duodenum * Mild duodenitis in the duodenal sweep with no active bleeding and no ulceration seen * Minimal duodenitis of the duodenal bulb * Minimal atrophic gastritis throughout the entire stomach with no active bleeding and no stigmata of recent hemorrhage * GE junction irregular at 41 cm to the incisors * 3 islands of possible Ervin's esophagus [id number] by [place] criteria. Biopsies not obtained due to patient's presentation for GI blood loss * Remainder of exam was unremarkable RECOMMENDATIONS: Continue patient on twice daily proton pump inhibitor, patient will eventually need repeat EGD with biopsies to rule out Ervin's esophagus if his clinical status improves Bleeding was likely due to the AVM seen and treated in the cecum, monitor hemoglobin for 24 to 48 hours if stabilized may discharge with outpatient follow-up Avoid anticoagulation for 7 days. Aspirin 81 mg however is acceptable
--- NOTE | 2020-09-16 10:32 | Operative Report ---
Operative Report Operative Report: DOS: 09/16/2020 SURGEON: Deng Meza MD COLONOSCOPY WITH APC AND WITH SNARE POLYPECTOMY REPORT PREOPERATIVE AND POSTOPERATIVE DIAGNOSIS: Anemia due to gastrointestinal blood loss DESCRIPTION OF PROCEDURE: The colonoscope was passed to the terminal ileum as identified by the ileal tissue. Scope was carefully withdrawn. Retroflexion was performed in the rectum. At the end of procedure, the scope was cleaned using normal technique. Vital signs monitored continuously throughout. SEDATION: Provided by Anesthesiology Services. Quality of the prep was adequate. COMPLICATIONS: None. ESTIMATED BLOOD LOSS: Minimal FINDINGS: * No gross lesions in the terminal ileum with no blood seen either * No blood throughout the colon * 3 mm AVM in the cecum, treated with APC without complication * 6 mm semisessile polyp in the sigmoid colon, removed by cold snare polypectomy * Remainder of exam was unremarkable RECOMMENDATIONS: Continue patient on twice daily proton pump inhibitor, patient will eventually need repeat EGD with biopsies to rule out Ervin's esophagus if his clinical status improves Bleeding was likely due to the AVM seen and treated in the cecum, monitor hemoglobin for 24 to 48 hours if stabilized may discharge with outpatient follow-up Avoid anticoagulation for 7 days. Aspirin 81 mg however is acceptable
--- NOTE | 2020-09-16 11:06 | Post Anesthesia Evaluation ---
- Post Anesthesia Evaluation Patient Participated: Yes Airway Patent: Yes Stable Respiratory Function: Yes Nausea/Vomiting: No Temp > 96.8F: Yes Pain Manageable: Yes Adequeate Hydration: Yes Anesthesia Complications: No
[2020-09-16] MEDS: INSULIN LISPRO 100 UNIT/ML VIAL 3 mL SUB-Q SCH ×7 (11:08→22:21)
[2020-09-16] MEDS: MIDODRINE 5 MG TAB PO SCH ×3 (11:11→18:18)
[2020-09-16] MEDS: SEVELAMER CARBONATE 800 MG TAB PO SCH ×3 (13:01→18:18)
[2020-09-16] MEDS: amLODIPine 5 MG TAB PO SCH (13:21)
[2020-09-16] MEDS: CALCITRIOL 0.5 MCG CAP PO SCH (13:22)
[2020-09-16] MEDS: PANTOPRAZOLE 40 MG INJ IV SCH ×2 (13:22→22:20)
[2020-09-16] MEDS: ASPIRIN 81 MG TAB CHEW PO SCH (13:22)
[2020-09-16] MEDS: FOLIC ACID 1 MG TAB PO SCH (13:22)
[2020-09-16] MEDS: ASCORBIC ACID 500 MG TAB PO SCH ×2 (13:23→22:21)
[2020-09-16] MEDS: THIAMINE 100 MG TAB PO SCH (13:23)
[2020-09-16 14:28] LABS: Hemoglobin 9.3 gm/dl (11.8-15.2); Mean Corpuscular HGB Conc 33 % (32-34); Mean Corpuscular Volume 94 fl (84-94); Platelet Count 250 K/mm3 (140-440); Red Blood Count 2.96 M/mm3 (3.65-5.03); Red Cell Distribution Width 14.7 % (13.2-15.2)
[2020-09-16 14:29] LABS: Calcium 8.8 mg/dL (8.4-10.2)
[2020-09-16] MEDS: levETIRAcetam 500 MG/5 ML ORAL LIQD PO SCH (22:20)
[2020-09-16] MEDS: DONEPEZIL 10 MG TAB PO SCH (22:23)
--- NOTE | 2020-09-16 23:54 | Progress Note ---
Assessment and Plan 1. ESRD: Patient is on maintenance hemodialysis three times a week, TTS schedule. Missed HD on 09/02 and 09/04. Hemodialysis: 09/05, 09/07, 09/10, 09/11, 09/13. 2. FEN: Hypocalcemia, Cinacalcet stopped, monitor. Hyperkalemia, improved. Monitor. 3. Anemia: PRBC as needed. Epogen as needed. Monitor. 4. COVID infection: CXR normal. No hypoxia. Seen by ID. 5. GI bleed: Seen by GI. 6. Anemia: 2/2 GI bleed. S/p multiple units of PRBC. Monitor. 7. Hyperparathyroidism: Cinacalcet stopped due to hypocalcemia. On Calcitriol. 8. PVD: S/p b/l LE amputation. 9. DM type 2. 10. Seizure disorder. Subjective: The patient was not examined today. However the examination findings from other providers noted. The current and previous medical records are reviewed in detail as are laboratory and imaging data reviewed when appropriate. Medications being given are also reviewed. In addition the case has been discussed with the attending hospitalist and the nurse when needed. New renal recommendations as above. Examination: Subjective Date of service: 09/16/20 Principal diagnosis: Melena Objective - Vital Signs Vital signs: Vital Signs - 12hr 09/16/20 09/16/20 09/16/20 12:31 13:21 17:07 Temperature 97.1 F L 99.4 F Pulse Rate 79 79 91 H Respiratory 18 18 Rate Blood Pressure 165/65 165/65 137/68 O2 Sat by Pulse 98 97 Oximetry 09/16/20 22:33 Temperature 99.0 F Pulse Rate 89 Respiratory 18 Rate Blood Pressure 106/81 O2 Sat by Pulse 100 Oximetry - Lab 09/16/20 13:41 09/16/20 13:41 Most recent lab results Calcium 8.8 mg/dL (8.4-10.2) 09/16/20 13:41 Phosphorus 4.90 mg/dL (2.5-4.5) H 09/16/20 13:41 Medications & Allergies - Medications Allergies/Adverse Reactions: Allergies Penicillins Allergy (Verified 07/11/19 17:31) Unknown Home Medications: Home Medications Medication Instructions Recorded Confirmed Last Taken Type diphenhydrAMINE [Benadryl CAP] 25 mg PO Q6HR PRN 12/27/16 09/04/20 05/24/19 History Insulin Lispro [Humalog 100 See Protocol SQ AC 02/14/17 09/04/20 05/22/19 History UNITS/ML Kwikpen] Donepezil HCl 10 mg PO QHS 11/10/18 09/04/20 05/25/19 History Sevelamer Carbonate 2,400 mg PO TIDWM 11/10/18 09/04/20 05/25/19 History Epoetin Darvin 10,000 Unit [Procrit] 10,000 unit IJ PRN 07/11/19 09/04/20 Unknown History ALBUTEROL NEB's [Proventil 0.083% 2.5 mg IH Q4HRT PRN #30 nebu 11/07/19 09/04/20 Unknown Rx NEBS] Ascorbic Acid [Vitamin C] 500 mg PO BID #60 tablet 11/07/19 09/04/20 Unknown Rx AtorvaSTATin [Lipitor] 40 mg PO QHS #30 tablet 11/07/19 09/04/20 Unknown Rx Cinacalcet [Sensipar] 30 mg PO QDAY #30 tablet 11/07/19 09/04/20 Unknown Rx Ferrous Sulfate [Feosol 325 MG tab] 325 mg PO BID #60 tablet 11/07/19 09/04/20 Unknown Rx Folic Acid [Folvite] 1 mg PO DAILY #30 tablet 11/07/19 09/04/20 Unknown Rx Thiamine [Vitamin B-1] 100 mg PO DAILY #30 tablet 11/07/19 09/04/20 Unknown Rx bisacodyL [Dulcolax tab] 10 mg PO QDAY PRN #30 tablet 11/07/19 09/04/20 Unknown Rx levETIRAcetam [Keppra TAB] 250 mg PO BID #30 tablet 11/07/19 09/04/20 05/25/19 Rx Aspirin [Aspirin BABY CHEW TAB] 81 mg PO QDAY #30 tab.chew 09/17/20 09/04/20 Unknown Rx Insulin Glargine [Lantus VIAL] 10 units SUB-Q QHS units 09/17/20 Unknown Rx Insulin Lispro [Humalog] 0 unit SUB-Q ACHS vial 09/17/20 Unknown Rx Insulin Lispro [Humalog] 5 unit SUB-Q AC vial 09/17/20 Unknown Rx Pantoprazole [Protonix TAB] 40 mg PO BID #15 tablet 09/17/20 09/04/20 Unknown Rx amLODIPine 5 mg PO QDAY tablet 09/17/20 Unknown Rx Active Medications: Generic Name Dose Route Start Last Admin Trade Name Freq PRN Reason Stop Dose Admin Acetaminophen 650 mg 09/05/20 00:06 Acetaminophen 325 Mg Tab PO Q4H PRN Pain MILD(1-3)/Fever >100.5/DINERO Albuterol 2.5 mg 09/06/20 22:19 Albuterol 2.5 Mg/3 Ml Nebu IH Q4HRT PRN Shortness Of Breath Amlodipine Besylate 5 mg 09/16/20 10:00 09/16/20 13:21 Amlodipine 5 Mg Tab PO Not Given QDAY LUZ Ascorbic Acid 500 mg 09/07/20 10:00 09/16/20 22:21 Ascorbic Acid 500 Mg Tab PO 500 mg BID LUZ Administration Aspirin 81 mg 09/07/20 10:00 09/16/20 13:22 Aspirin 81 Mg Tab Chew PO Not Given QDAY LUZ Atorvastatin Calcium 40 mg 09/07/20 22:00 09/16/20 22:20 Atorvastatin 40 Mg Tab PO 40 mg QHS LUZ Administration Bisacodyl 10 mg 09/06/20 22:19 Bisacodyl 5 Mg Tab PO QDAY PRN Constipation Calcitriol 0.5 mcg 09/11/20 10:00 09/16/20 13:22 Calcitriol 0.5 Mcg Cap PO Not Given QDAY LUZ Dextrose 50 ml 09/05/20 00:06 09/14/20 08:47 Dextrose 50% In Water (25gm) 50 Ml Syringe IV 50 ml Q30MIN PRN Administration Hypoglycemia Protocol Donepezil HCl 10 mg 09/07/20 22:00 09/16/20 22:23 Donepezil 10 Mg Tab PO 10 mg QHS LUZ Administration Epoetin Darvin 10,000 unit 09/06/20 20:24 09/13/20 18:07 Epoetin Darvin 10,000 Unit/1 Ml Inj SUB-Q 10,000 unit CORBY PRN Administration hemodialysis Folic Acid 1 mg 09/07/20 10:00 09/16/20 13:22 Folic Acid 1 Mg Tab PO Not Given DAILY LUZ Heparin Sodium (Porcine) 3,000 unit 09/05/20 08:28 09/07/20 15:34 Heparin 10,000 Units/10 Ml Vial IV 3,000 unit CORBY PRN Administration hemodialysis Sodium Chloride 100 mls @ 999 mls/hr 09/11/20 13:55 Nacl 0.9% IV CORBY PRN Hypotension Sodium Chloride 1,000 mls @ 50 mls/hr 09/16/20 09:30 Nacl 0.9% 1000 Ml IV DIRECT LUZ Insulin Glargine 10 units 09/07/20 22:00 09/14/20 23:18 Insulin Glargine 100 Units/Ml SUB-Q Not Given QHS LUZ Insulin Human Lispro 0 unit 09/05/20 07:30 09/16/20 22:21 Insulin Lispro 100 Unit/Ml Vial 3 Ml SUB-Q 2 unit ACHS [facility] Administration Protocol Insulin Human Lispro 5 unit 09/07/20 07:30 09/16/20 18:12 Insulin Lispro 100 Unit/Ml Vial 3 Ml SUB-Q 5 unit AC [facility] Administration Levetiracetam 250 mg 09/16/20 22:00 09/16/20 22:20 Levetiracetam 500 Mg/5 Ml Oral Liqd PO 250 mg BID LUZ Administration Magnesium Hydroxide 30 ml 09/05/20 00:06 Magnesium Hydroxide (Mom) Oral Liqd Udc PO Q4H PRN Constipation Midodrine 5 mg 09/10/20 14:30 09/16/20 18:18 Midodrine 5 Mg Tab PO Not Given TID@0800,1200,1700 [facility] Morphine Sulfate 2 mg 09/05/20 00:06 Morphine 2 Mg/1 Ml Inj IV Q4H PRN Pain, Moderate (4-6) Ondansetron HCl 4 mg 09/05/20 00:06 09/10/20 15:21 Ondansetron 4 Mg/2 Ml Inj IV 4 mg Q8H PRN Administration Nausea And Vomiting Pantoprazole Sodium 40 mg 09/14/20 22:00 09/16/20 22:20 Pantoprazole 40 Mg Inj IV 40 mg BID LUZ Administration Sevelamer Carbonate 2,400 mg 09/07/20 08:00 09/16/20 18:18 Sevelamer Carbonate 800 Mg Tab PO Not Given TIDWM [facility] Sodium Chloride 10 ml 09/05/20 10:00 09/16/20 13:22 Sodium Chloride 0.9% 10 Ml Flush Syringe IV Not Given BID LUZ Sodium Chloride 10 ml 09/05/20 00:06 Sodium Chloride 0.9% 10 Ml Flush Syringe IV PRN PRN LINE FLUSH Thiamine HCl 100 mg 09/07/20 10:00 09/16/20 13:23 Thiamine 100 Mg Tab PO Not Given DAILY LUZ
[2020-09-17] MEDS: INSULIN LISPRO 100 UNIT/ML VIAL 3 mL SUB-Q SCH ×6 (07:30→22:56)
[2020-09-17] MEDS: SEVELAMER CARBONATE 800 MG TAB PO SCH ×3 (08:00→17:48)
[2020-09-17] MEDS: EPOETIN ALFA 10,000 UNIT/1 ML INJ SUB-Q PRN (10:45)
[2020-09-17] MEDS: levETIRAcetam 500 MG/5 ML ORAL LIQD PO SCH ×2 (10:59→22:31)
[2020-09-17] MEDS: THIAMINE 100 MG TAB PO SCH (10:59)
[2020-09-17] MEDS: FOLIC ACID 1 MG TAB PO SCH (10:59)
[2020-09-17] MEDS: ASPIRIN 81 MG TAB CHEW PO SCH (10:59)
[2020-09-17] MEDS: CALCITRIOL 0.5 MCG CAP PO SCH (10:59)
[2020-09-17] MEDS: amLODIPine 5 MG TAB PO SCH (10:59)
[2020-09-17] MEDS: PANTOPRAZOLE 40 MG INJ IV SCH ×2 (11:00→22:33)
[2020-09-17] MEDS: ASCORBIC ACID 500 MG TAB PO SCH ×2 (11:00→22:33)
--- NOTE | 2020-09-17 12:17 | Discharge Summary ---
Providers - Providers Date of Admission: 09/04/20 22:21 Date of discharge: 09/17/20 Attending physician: RAMYA SANTANA 09/04/20 21:00 Consult to Physician [CONS] Stat Comment: Dr. Christian spoke with Dr. Ellison @ 2057 Consulting Provider: FELIZ ELLISON Physician Instructions: Reason For Exam: hyperkalemia, needs dialysis 09/05/20 00:08 Consult to Dietitian/Nutrition [CONS] Routine Physician Instructions: Reason For Exam: Reason for Consult: Diet education 09/05/20 05:47 Consult to Wound/ET Nurse [CONS] Routine Reason For Exam: wound eval 09/05/20 07:53 Consult to Physician [CONS] Routine Comment: Consulting Provider: DEISY KERR Physician Instructions: Reason For Exam: Covid positive, ESRD - here for dialysis 09/10/20 14:06 Consult to Physician [CONS] Routine Comment: Consulting Provider: RADU FALCON Physician Instructions: Reason For Exam: dark stool, anemia 09/12/20 10:59 Consult to Physician [CONS] Routine Comment: Consulting Provider: DEISY KERR Physician Instructions: Reason For Exam: leucocytosis, elevated lactic acid 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 Restart aspirin from September 23, 2020 Follow up with: PRIMARY CARE, [Primary Care Provider] - 3-5 Days
--- NOTE | 2020-09-17 14:03 | Progress Note ---
Assessment and Plan 1. ESRD: Patient is on maintenance hemodialysis three times a week, TTS schedule. Missed HD on 09/02 and 09/04. Hemodialysis: 09/05, 09/07, 09/10, 09/11, 09/13, 09/17. 2. FEN: Hypocalcemia, Cinacalcet stopped, monitor. Hyperkalemia, improved. Monitor. 3. Anemia: PRBC as needed. Epogen as needed. Monitor. 4. COVID infection: CXR normal. No hypoxia. Seen by ID. 5. GI bleed: Seen by GI. 6. Anemia: 2/2 GI bleed. S/p multiple units of PRBC. Monitor. 7. Hyperparathyroidism: Cinacalcet stopped due to hypocalcemia. On Calcitriol. 8. PVD: S/p b/l LE amputation. 9. DM type 2. 10. Seizure disorder. Subjective: The patient was not examined today. However the examination findings from other providers noted. The current and previous medical records are reviewed in detail as are laboratory and imaging data reviewed when appropriate. Medications being given are also reviewed. In addition the case has been discussed with the attending hospitalist and the nurse when needed. New renal recommendations as above. Examination: Subjective Date of service: 09/17/20 Principal diagnosis: Melena Objective - Vital Signs Vital signs: Vital Signs - 12hr 09/17/20 09/17/20 09/17/20 04:32 07:50 08:00 Temperature 99.3 F 97.2 F L Pulse Rate 89 88 89 Respiratory 18 18 Rate Blood Pressure 102/43 140/33 170/57 Blood Pressure [Left] O2 Sat by Pulse 95 Oximetry 09/17/20 09/17/20 09/17/20 08:15 08:30 08:45 Temperature Pulse Rate 88 98 H 125 H Respiratory Rate Blood Pressure 118/38 146/35 117/38 Blood Pressure [Left] O2 Sat by Pulse Oximetry 09/17/20 09/17/20 09/17/20 09:00 09:15 09:30 Temperature Pulse Rate 94 H 90 117 H Respiratory Rate Blood Pressure 129/42 105/23 129/30 Blood Pressure [Left] O2 Sat by Pulse Oximetry 09/17/20 09/17/20 09/17/20 09:45 10:00 10:15 Temperature Pulse Rate 93 H 92 H 92 H Respiratory Rate Blood Pressure 112/25 106/25 102/35 Blood Pressure [Left] O2 Sat by Pulse Oximetry 09/17/20 09/17/20 09/17/20 10:30 10:45 11:00 Temperature Pulse Rate 96 H 104 H 90 Respiratory Rate Blood Pressure 108/27 101/23 132/36 Blood Pressure [Left] O2 Sat by Pulse Oximetry 09/17/20 09/17/20 11:10 12:45 Temperature 97.7 F 97.7 F Pulse Rate 78 78 Respiratory 20 19 Rate Blood Pressure 121/87 Blood Pressure 121/87 [Left] O2 Sat by Pulse 95 Oximetry - Lab 09/16/20 13:41 09/16/20 13:41 Most recent lab results Calcium 8.8 mg/dL (8.4-10.2) 09/16/20 13:41 Phosphorus 4.90 mg/dL (2.5-4.5) H 09/16/20 13:41 Medications & Allergies - Medications Allergies/Adverse Reactions: Allergies Penicillins Allergy (Verified 07/11/19 17:31) Unknown Home Medications: Home Medications Medication Instructions Recorded Confirmed Last Taken Type diphenhydrAMINE [Benadryl CAP] 25 mg PO Q6HR PRN 12/27/16 09/04/20 05/24/19 History Insulin Lispro [Humalog 100 See Protocol SQ AC 02/14/17 09/04/20 05/22/19 History UNITS/ML Kwikpen] Donepezil HCl 10 mg PO QHS 11/10/18 09/04/20 05/25/19 History Sevelamer Carbonate 2,400 mg PO TIDWM 11/10/18 09/04/20 05/25/19 History Epoetin Darvin 10,000 Unit [Procrit] 10,000 unit IJ PRN 07/11/19 09/04/20 Unknown History ALBUTEROL NEB's [Proventil 0.083% 2.5 mg IH Q4HRT PRN #30 nebu 11/07/19 09/04/20 Unknown Rx NEBS] Ascorbic Acid [Vitamin C] 500 mg PO BID #60 tablet 11/07/19 09/04/20 Unknown Rx AtorvaSTATin [Lipitor] 40 mg PO QHS #30 tablet 11/07/19 09/04/20 Unknown Rx Cinacalcet [Sensipar] 30 mg PO QDAY #30 tablet 11/07/19 09/04/20 Unknown Rx Ferrous Sulfate [Feosol 325 MG tab] 325 mg PO BID #60 tablet 11/07/19 09/04/20 Unknown Rx Folic Acid [Folvite] 1 mg PO DAILY #30 tablet 11/07/19 09/04/20 Unknown Rx Thiamine [Vitamin B-1] 100 mg PO DAILY #30 tablet 11/07/19 09/04/20 Unknown Rx bisacodyL [Dulcolax tab] 10 mg PO QDAY PRN #30 tablet 11/07/19 09/04/20 Unknown Rx levETIRAcetam [Keppra TAB] 250 mg PO BID #30 tablet 11/07/19 09/04/20 05/25/19 Rx Aspirin [Aspirin BABY CHEW TAB] 81 mg PO QDAY #30 tab.chew 09/17/20 09/04/20 Unknown Rx Insulin Glargine [Lantus VIAL] 10 units SUB-Q QHS units 09/17/20 Unknown Rx Insulin Lispro [Humalog] 0 unit SUB-Q ACHS vial 09/17/20 Unknown Rx Insulin Lispro [Humalog] 5 unit SUB-Q AC vial 09/17/20 Unknown Rx Pantoprazole [Protonix TAB] 40 mg PO BID #15 tablet 09/17/20 09/04/20 Unknown Rx amLODIPine 5 mg PO QDAY tablet 09/17/20 Unknown Rx Active Medications: Generic Name Dose Route Start Last Admin Trade Name Freq PRN Reason Stop Dose Admin Acetaminophen 650 mg 09/05/20 00:06 Acetaminophen 325 Mg Tab PO Q4H PRN Pain MILD(1-3)/Fever >100.5/DINERO Albuterol 2.5 mg 09/06/20 22:19 Albuterol 2.5 Mg/3 Ml Nebu IH Q4HRT PRN Shortness Of Breath Amlodipine Besylate 5 mg 09/16/20 10:00 09/17/20 10:59 Amlodipine 5 Mg Tab PO 5 mg QDAY LUZ Administration Ascorbic Acid 500 mg 09/07/20 10:00 09/17/20 11:00 Ascorbic Acid 500 Mg Tab PO 500 mg BID LUZ Administration Atorvastatin Calcium 40 mg 09/07/20 22:00 09/16/20 22:20 Atorvastatin 40 Mg Tab PO 40 mg QHS LUZ Administration Bisacodyl 10 mg 09/06/20 22:19 Bisacodyl 5 Mg Tab PO QDAY PRN Constipation Calcitriol 0.5 mcg 09/11/20 10:00 09/17/20 10:59 Calcitriol 0.5 Mcg Cap PO 0.5 mcg QDAY LUZ Administration Dextrose 50 ml 09/05/20 00:06 09/14/20 08:47 Dextrose 50% In Water (25gm) 50 Ml Syringe IV 50 ml Q30MIN PRN Administration Hypoglycemia Protocol Donepezil HCl 10 mg 09/07/20 22:00 09/16/20 22:23 Donepezil 10 Mg Tab PO 10 mg QHS LUZ Administration Epoetin Darvin 10,000 unit 09/06/20 20:24 09/17/20 10:45 Epoetin Darvin 10,000 Unit/1 Ml Inj SUB-Q 10,000 unit CORBY PRN Administration hemodialysis Folic Acid 1 mg 09/07/20 10:00 09/17/20 10:59 Folic Acid 1 Mg Tab PO 1 mg DAILY LUZ Administration Heparin Sodium (Porcine) 3,000 unit 09/05/20 08:28 09/07/20 15:34 Heparin 10,000 Units/10 Ml Vial IV 3,000 unit CORBY PRN Administration hemodialysis Sodium Chloride 100 mls @ 999 mls/hr 09/11/20 13:55 Nacl 0.9% IV CORBY PRN Hypotension Sodium Chloride 1,000 mls @ 50 mls/hr 09/16/20 09:30 Nacl 0.9% 1000 Ml IV DIRECT LUZ Insulin Glargine 10 units 09/07/20 22:00 09/14/20 23:18 Insulin Glargine 100 Units/Ml SUB-Q Not Given QHS [facility] Insulin Human Lispro 0 unit 09/05/20 07:30 09/16/20 22:21 Insulin Lispro 100 Unit/Ml Vial 3 Ml SUB-Q 2 unit ACHS LUZ Administration Protocol Insulin Human Lispro 5 unit 09/07/20 07:30 09/16/20 18:12 Insulin Lispro 100 Unit/Ml Vial 3 Ml SUB-Q 5 unit AC LUZ Administration Levetiracetam 250 mg 09/16/20 22:00 09/17/20 10:59 Levetiracetam 500 Mg/5 Ml Oral Liqd PO 250 mg BID LUZ Administration Magnesium Hydroxide 30 ml 09/05/20 00:06 Magnesium Hydroxide (Mom) Oral Liqd Udc PO Q4H PRN Constipation Morphine Sulfate 2 mg 09/05/20 00:06 Morphine 2 Mg/1 Ml Inj IV Q4H PRN Pain, Moderate (4-6) Ondansetron HCl 4 mg 09/05/20 00:06 09/10/20 15:21 Ondansetron 4 Mg/2 Ml Inj IV 4 mg Q8H PRN Administration Nausea And Vomiting Pantoprazole Sodium 40 mg 09/14/20 22:00 09/17/20 11:00 Pantoprazole 40 Mg Inj IV 40 mg BID LUZ Administration Sevelamer Carbonate 2,400 mg 09/07/20 08:00 09/17/20 10:59 Sevelamer Carbonate 800 Mg Tab PO 2,400 mg TIDWM LUZ Administration Sodium Chloride 10 ml 09/05/20 10:00 09/16/20 13:22 Sodium Chloride 0.9% 10 Ml Flush Syringe IV Not Given BID LUZ Sodium Chloride 10 ml 09/05/20 00:06 Sodium Chloride 0.9% 10 Ml Flush Syringe IV PRN PRN LINE FLUSH Thiamine HCl 100 mg 09/07/20 10:00 09/17/20 10:59 Thiamine 100 Mg Tab PO 100 mg DAILY LUZ Administration
--- NOTE | 2020-09-17 15:07 | Gastroenterology Progress Note ---
Assessment and Plan Continue patient on twice daily proton pump inhibitor, patient will eventually need repeat EGD with biopsies to rule out Ervin's esophagus if his clinical status improves, but that will be on an outpatient basis Bleeding was likely due to the AVM seen and treated in the cecum, hgb improving as of yesterday (no hgb this AM yet) From GI perspective if Hgb tomorrow stable can discharge with outpatient followup Avoid anticoagulation for 6 days. Aspirin 81 mg however is acceptable - Patient Problems (1) GI bleed Current Visit: No Status: Acute Qualifiers: GI bleed type/associated pathology: unspecified gastrointestinal hemorrhage type Qualified Code(s): K92.2 - Gastrointestinal hemorrhage, unspecified Subjective Date of service: 09/17/20 Principal diagnosis: Melena Interval history: Hgb stable as of yesterday, no overt bleed reported in last 24 hours s/p EGD/colon with APC of AVM in cecum Objective - Constitutional Vitals: Temp Pulse Resp BP Pulse Ox 97.7 F 78 19 121/87 95 09/17/20 12:45 09/17/20 12:45 09/17/20 12:45 09/17/20 12:45 09/17/20 12:45 General appearance: no acute distress - Gastrointestinal General gastrointestinal: Present: soft - Labs CBC & Chem 7: 09/16/20 13:41 09/16/20 13:41 Labs: Laboratory Results - last 24 hr 09/16/20 09/16/20 09/17/20 17:03 21:43 08:38 POC Glucose 124 H 170 H 138 H 09/17/20 10:56 POC Glucose 170 H
[2020-09-17] MEDS: DONEPEZIL 10 MG TAB PO SCH (22:32)
[2020-09-17] MEDS: INSULIN GLARGINE 100 UNITS/ML SUB-Q SCH (22:32)
[2020-09-18 03:39] VITALS: BP 102/43
== END 2020-09-18 03:50 | DRG 640 ==
LOC: ED 17:31 → 3A 22:21
PROVIDERS: ADMIT Internal Medicine Geriatric Medicine; ATTEND Internal Medicine
PROC: 5A1D70Z Performance of Urinary Filtration, Intermittent, Less than 6 Hours Per Day (ICD-10-PCS; principal; 2020-09-05)
PROC: 5A1D70Z Performance of Urinary Filtration, Intermittent, Less than 6 Hours Per Day (ICD-10-PCS; 2020-09-07)
PROC: 5A1D70Z Performance of Urinary Filtration, Intermittent, Less than 6 Hours Per Day (ICD-10-PCS; 2020-09-10)
PROC: 30233N1 Transfusion of Nonautologous Red Blood Cells into Peripheral Vein, Percutaneous Approach (ICD-10-PCS; 2020-09-10)
PROC: 5A1D70Z Performance of Urinary Filtration, Intermittent, Less than 6 Hours Per Day (ICD-10-PCS; 2020-09-11)
PROC: 5A1D70Z Performance of Urinary Filtration, Intermittent, Less than 6 Hours Per Day (ICD-10-PCS; 2020-09-13)
PROC: 0DJ08ZZ Inspection of Upper Intestinal Tract, Via Natural or Artificial Opening Endoscopic (ICD-10-PCS; 2020-09-16)
PROC: 0DBN8ZZ Excision of Sigmoid Colon, Via Natural or Artificial Opening Endoscopic (ICD-10-PCS; 2020-09-16)
PROC: 5A1D70Z Performance of Urinary Filtration, Intermittent, Less than 6 Hours Per Day (ICD-10-PCS; 2020-09-17)
DX: E87.5 Hyperkalemia (principal); U07.1 COVID-19; N18.6 End stage renal disease; K55.21 Angiodysplasia of colon with hemorrhage; I16.0 Hypertensive urgency; G40.909 Epilepsy, unspecified, not intractable, without status epilepticus; Z66 Do not resuscitate; E11.51 Type 2 diabetes mellitus with diabetic peripheral angiopathy without gangrene; E11.22 Type 2 diabetes mellitus with diabetic chronic kidney disease; Z79.4 Long term (current) use of insulin; Z88.0 Allergy status to penicillin; I12.0 Hypertensive chronic kidney disease with stage 5 chronic kidney disease or end stage renal disease; K21.9 Gastro-esophageal reflux disease without esophagitis; J45.909 Unspecified asthma, uncomplicated; F03.90 Unspecified dementia, unspecified severity, without behavioral disturbance, psychotic disturbance, mood disturbance, and anxiety; D62 Acute posthemorrhagic anemia; E21.3 Hyperparathyroidism, unspecified; Z99.2 Dependence on renal dialysis; Z86.73 Personal history of transient ischemic attack (TIA), and cerebral infarction without residual deficits
CPT/HCPCS: 36415; 36430; 71045; 74018; 80048; 80074; 82140; 82270; 82728; 82962; 83615; 83970; 84100; 84132; 84145; 85014; 85018; 85025; 85027; 85379; 85610; 86140; 86850; 86900; 86901; 86920; 87040; 88305; 90471; 93005; 94640; 94760; 96361; 96365; 96375; 96376; G0378; A9270-GY; C9113; J0360; J0610; J0885; J1644; J1815; J1953; J2370; J2405; J2704; J3010; J7030; J7040; J7050; P9016; U0003

== ENCOUNTER 2020-10-04 16:14 | Inpatient (IN) | payer MEDICAID ==
--- NOTE | 2020-10-04 16:26 | Emergency Department Report ---
HPI - General Time Seen by Provider: 10/04/20 16:24 - HPI HPI: Room 34 The patient is a 60-year-old male present with a chief complaint of altered mental status. EMS picked the patient up from [facility] and states that they were told at approximately 15:00 the patient was found completely aphasic with left-sided facial weakness and drooling. Per EMS the patient is normally talkative and alert at baseline. EMS reports [facility] staff stated they had checked on the patient "just before" finding him in the state. Case discussed with tele-neurologist who states conversation with staff at [facility] reveals the patient had not been behaving like himself since yesterday afternoon ED Past Medical Hx - Past Medical History Hx Hypertension: Yes Hx Diabetes: Yes Hx GERD: Yes Hx Renal Disease: Yes Hx Seizures: Yes Hx Kidney Stones: Yes Hx Asthma: Yes Hx Dementia: Yes Additional medical history: Anemia - Surgical History Additional Surgical History: Left BKA, 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] - Family History Family history: no significant - Social History Smoking Status: Unknown if ever smoked Substance Use Type: None - Medications Home Medications: Home Medications Medication Instructions Recorded Confirmed Last Taken Type diphenhydrAMINE [Benadryl CAP] 25 mg PO Q6HR PRN 12/27/16 09/04/20 05/24/19 History Insulin Lispro [Humalog 100 See Protocol SQ AC 02/14/17 09/04/20 05/22/19 History UNITS/ML Kwikpen] Donepezil HCl 10 mg PO QHS 11/10/18 09/04/20 05/25/19 History Sevelamer Carbonate 2,400 mg PO TIDWM 11/10/18 09/04/20 05/25/19 History Epoetin Darvin 10,000 Unit [Procrit] 10,000 unit IJ PRN 07/11/19 09/04/20 Unknown History ALBUTEROL NEB's [Proventil 0.083% 2.5 mg IH Q4HRT PRN #30 nebu 11/07/19 09/04/20 Unknown Rx NEBS] Ascorbic Acid [Vitamin C] 500 mg PO BID #60 tablet 11/07/19 09/04/20 Unknown Rx AtorvaSTATin [Lipitor] 40 mg PO QHS #30 tablet 11/07/19 09/04/20 Unknown Rx Cinacalcet [Sensipar] 30 mg PO QDAY #30 tablet 11/07/19 09/04/20 Unknown Rx Ferrous Sulfate [Feosol 325 MG tab] 325 mg PO BID #60 tablet 11/07/19 09/04/20 Unknown Rx Folic Acid [Folvite] 1 mg PO DAILY #30 tablet 11/07/19 09/04/20 Unknown Rx Thiamine [Vitamin B-1] 100 mg PO DAILY #30 tablet 11/07/19 09/04/20 Unknown Rx bisacodyL [Dulcolax tab] 10 mg PO QDAY PRN #30 tablet 11/07/19 09/04/20 Unknown Rx levETIRAcetam [Keppra TAB] 250 mg PO BID #30 tablet 11/07/19 09/04/20 05/25/19 Rx Aspirin [Aspirin BABY CHEW TAB] 81 mg PO QDAY #30 tab.chew 09/17/20 09/04/20 Unknown Rx Insulin Glargine [Lantus VIAL] 10 units SUB-Q QHS units 09/17/20 Unknown Rx Insulin Lispro [Humalog] 0 unit SUB-Q ACHS vial 09/17/20 Unknown Rx Insulin Lispro [Humalog] 5 unit SUB-Q AC vial 09/17/20 Unknown Rx Pantoprazole [Protonix TAB] 40 mg PO BID #15 tablet 09/17/20 09/04/20 Unknown Rx amLODIPine 5 mg PO QDAY tablet 09/17/20 Unknown Rx ED Review of Systems ROS: Stated complaint: STROKE Other details as noted in HPI Comment: Unobtainable due to pts medical conditions Physical Exam - Physical Exam Physical Exam: GENERAL: The patient is well-developed well-nourished male lying on stretcher in no acute distress. [] HEENT: Normocephalic. Atraumatic. Extraocular motions are intact. Patient has moist mucous membranes. NECK: Supple. Trachea midline CHEST/LUNGS: Clear to auscultation. There is no respiratory distress noted. HEART/CARDIOVASCULAR: Regular. There is no tachycardia. There is no gallop rub or murmur. ABDOMEN: Abdomen is soft, nontender. Patient has normal bowel sounds. There is no abdominal distention. SKIN: There is no rash. There is no edema. There is no diaphoresis. NEURO: The patient is has his eyes closed but opens his eyes and makes eye contact with verbal stimuli. Patient does not speak or answer questions verbally. Patient did shake his head "no" in response to question but never speaks. The patient is not cooperative with neurologic exam. MUSCULOSKELETAL: There is no evidence of acute injury. ED Course - Consultations Consultation #1: 10/04/20 17:17 GI paged 10/04/20 17:[address] Alejandro 10/04/20 18:44 GI paged for update Consultation #2: 10/04/20 17:17 Nephrology paged 10/04/20 19:[address] Sahu-we will arrange for hemodialysis Consultation #3: 10/04/20 17:42 [facility] transfer line called- on ICU saturation. Gate Person requesting Covid test. Will accept patient in transfer after test results. I explained that th is test is batched once a day so we will not have test results until tomorrow. [facility] states they would leave the case open and may contact them tomorrow to continue transfer if necessary 10/04/20 18:08 [facility] transfer line called 10/04/20 18:43 No ICU beds available. Cannot accept patient in transfer - EJ/Peripheral Line Neck L Time Out Performed: Yes Indications: nurses unable to establis Skin Cleansed in Sterile Fashion: Yes Size: 20 Dressing Placed: Tegaderm, tape Patient Tolerated Procedure: well, no complications ED Medical Decision Making - Lab Data Result diagrams: 10/04/20 16:38 10/04/20 16:38 Laboratory Tests 10/04/20 10/04/20 10/04/20 16:38 16:38 16:38 WBC 8.8 RBC 1.03 L Hgb 3.0 L* Hct 9.3 L* MCV 91 MCH 30 MCHC 33 RDW 16.9 H Plt Count 301 Lymph % (Auto) 10.8 L [place] % (Auto) 4.2 Eos % (Auto) 0.0 Baso % (Auto) 0.7 Lymph # (Auto) 0.9 L [place] # (Auto) 0.4 Eos # (Auto) 0.0 Baso # (Auto) 0.1 Seg Neutrophils % 84.3 H Seg Neutrophils # 7.4 PT 16.2 H INR 1.30 H APTT 31.0 Thrombin Time VBG pH Sodium 149 H Potassium 6.0 H Chloride 102.8 Carbon Dioxide 18 L Anion Gap 34 BUN > 112 H Creatinine 12.2 H Estimated GFR 5 BUN/Creatinine Ratio 9 Glucose 98 Calcium 8.1 L Ammonia Total Creatine Kinase CK-MB (CK-2) CK-MB (CK-2) Rel Index Troponin T 0.698 H* Triglycerides 64 Cholesterol 102 LDL Cholesterol Direct 62 HDL Cholesterol 37 L Cholesterol/HDL Ratio 2.75 TSH Free T4 Blood Type Antibody Screen Crossmatch 10/04/20 10/04/20 10/04/20 16:38 16:54 16:54 WBC RBC Hgb Hct MCV MCH MCHC RDW Plt Count Lymph % (Auto) [place] % (Auto) Eos % (Auto) Baso % (Auto) Lymph # (Auto) [place] # (Auto) Eos # (Auto) Baso # (Auto) Seg Neutrophils % Seg Neutrophils # PT INR APTT Thrombin Time 17.8 VBG pH Sodium Potassium Chloride Carbon Dioxide Anion Gap BUN Creatinine Estimated GFR BUN/Creatinine Ratio Glucose Calcium Ammonia 48.0 Total Creatine Kinase 92 CK-MB (CK-2) 4.7 H CK-MB (CK-2) Rel Index 5.1 H Troponin T Triglycerides Cholesterol LDL Cholesterol Direct HDL Cholesterol Cholesterol/HDL Ratio TSH Free T4 Blood Type Antibody Screen Crossmatch 10/04/20 10/04/20 10/04/20 16:54 16:54 16:54 WBC RBC Hgb Hct MCV MCH MCHC RDW Plt Count Lymph % (Auto) [place] % (Auto) Eos % (Auto) Baso % (Auto) Lymph # (Auto) [place] # (Auto) Eos # (Auto) Baso # (Auto) Seg Neutrophils % Seg Neutrophils # PT INR APTT Thrombin Time VBG pH 7.389 Sodium Potassium Chloride Carbon Dioxide Anion Gap BUN Creatinine Estimated GFR BUN/Creatinine Ratio Glucose Calcium Ammonia Total Creatine Kinase CK-MB (CK-2) CK-MB (CK-2) Rel Index Troponin T Triglycerides Cholesterol LDL Cholesterol Direct HDL Cholesterol Cholesterol/HDL Ratio TSH 3.090 Free T4 0.52 L Blood Type B POSITIVE Antibody Screen Negative Crossmatch See Detail - EKG Data -: EKG Interpreted by Me EKG shows normal: sinus rhythm Rate: normal - EKG Data When compared to previous EKG there are: previous EKG unavailable Interpretation: nonspecific ST-T wave jero - Radiology Data Radiology results: report reviewed (CT head), image reviewed (CT head) Findings [facility] [address] [place] [address] Cat Scan Report Signed Patient: CAROLE BRANCH MR#: [id number] 5 : 1960 Acct:[id number] Age/Sex: 60 / M ADM Date: 10/04/20 Loc: ED Attending Dr: Ordering Physician: BRADLY RODRIGUEZ MD Date of Service: 10/04/20 Procedure(s): CT head/brain wo con Accession Number(s): [id number] cc: BRADLY RODRIGUEZ MD NONENHANCED CT SCAN OF THE BRAIN: INDICATION: neuro deficits <6hrs or sx present upon awakening. TECHNIQUE: Routine CT head without contrast. Sagittal and coronal reformatted images were obtained. All CT scans at this location are performed using CT dose reduction for ALARA by means of automated exposure control. COMPARISON: Nonenhanced CT scan from 06/12/2020 and 04/17/2020 FINDINGS: BRAIN / INTRACRANIAL CONTENTS: Hemorrhage:No intracranial hemorrhage; no subarachnoid hemorrhage Stroke mimics: No subdural or epidural hematoma or space taking lesion Acute/subacute territorial infarction: [place]-white matter interface: No blurring; normal Insular cortex: Normal Basal ganglia: Normal Wedge shaped parenchymal low density area: Not present Cortical sulci: Not effaced; moderate cortical involution Lacunar infarctions: No acute lacunar Vasculopathy: Dense middle cerebral artery sign: Not present Internal carotid artery terminus: Normal Basilar artery:Normal Middle cerebral artery branches in the sylvian fissure (Dot sign): Normal Calcified embolus: Not present ASPECT score: 10 Chronic lesions: Moderate cerebral and cerebellar involutions; chronic ischemic changes in the basal ganglia; confluent periventricular low-attenuation areas due to chronic small vessel disease; chronic lacune in the right thalamus Craniocervical junction:No significant abnormality Orbits: Calcification in the superior ophthalmic veins bilaterally; remains unchanged Paranasal sinuses/mastoids:No significant abnormality Additional findings: Extensive v ascular calcification in the carotid arteries and in the basilar artery: Calcification in the scalp blood vessels probably venous IMPRESSION: No hemorrhage or stroke mimics No CT findings to suggest acute/subacute ischemia This exam was performed as part of a code stroke protocol. The exam was compl eted at [facility] on 10/04/2020 3:32 PM. The exam was reviewed at 3: 38 PM and ER physician was notified at 8:40 PM. Signer Name: Sánchez Baer MD Signed: 10/04/2020 4:41 PM Workstation Name: [id number] Transcribed By: BS Dictated By: Sánchez Shabazz MD Electr onically Authenticated By: Sánchez Shabazz MD Signed Date/Time: 10/04/20 1641 DD/ 1632 TD/TT: - Differential Diagnosis Altered mental status Critical Care Time: Yes Critical care time in (mins) excluding proc time.: 30 Critical care attestation.: If time is entered above; I have spent that time in minutes in the direct care of this critically ill patient, excluding procedure time. ED Disposition Clinical Impression: Acute encephalopathy, Anemia requiring transfusions, Upper GI bleed, Hyperkalemia Altered mental status Qualifiers: Altered mental status type: somnolence Qualified Code(s): R40.0 - Somnolence Disposition: -09 OP ADMIT IP TO THIS HOSP Is pt being admited?: Yes Does the pt Need Aspirin: No Condition: Serious Time of Disposition: 19:12 (Hospitalist notified (Dr. Rucker))
--- NOTE | 2020-10-04 16:45 | Cat Scan Report ---
NONENHANCED CT SCAN OF THE BRAIN: INDICATION: neuro deficits <6hrs or sx present upon awakening. TECHNIQUE: Routine CT head without contrast. Sagittal and coronal reformatted images were obtained. A ll CT scans at this location are performed using CT dose reduction for ALARA by means of automated ex posure control. COMPARISON: Nonenhanced CT scan from 06/12/2020 and 04/17/2020 FINDINGS: BRAIN / INTRACRANIAL CONTENTS: Hemorrhage:No intracranial hemorrhage; no subarachnoid hemorrhage Stroke mimics: No subdural or epidural hematoma or space taking lesion Acute/subacute territorial infarction: [place]-white matter interface: No blurring; normal Insular cortex: Normal Basal ganglia: Normal Wedge shaped parenchymal low density area: Not present Cortical sulci: Not effaced; moderate cortical involution Lacunar infarctions: No acute lacunar Vasculopathy: Dense middle cerebral artery sign: Not present Internal carotid artery terminus: Normal Basilar artery:Normal Middle cerebral artery branches in the sylvian fissure (Dot sign): Normal Calcified embolus: Not present ASPECT score: 10 Chronic lesions: Moderate cerebral and cerebellar involutions; chronic ischemic changes in the basal ganglia; confluent periventricular low-attenuation areas due to chronic small vessel disease; chronic lacune in the right thalamus Craniocervical junction:No significant abnormality Orbits: Calcification in the superior ophthalmic veins bilaterally; remains unchanged Paranasal sinuses/mastoids:No significant abnormality Additional findings: Extensive vascular calcification in the carotid arteries and in the basilar chen ry: Calcification in the scalp blood vessels probably venous IMPRESSION: No hemorrhage or stroke mimics No CT findings to suggest acute/subacute ischemia This exam was performed as part of a code stroke protocol. The exam was completed at [facility] on 10/04/2020 3:32 PM. The exam was reviewed at 3: 38 PM and ER physician was notified at 8:40 PM. Signer Name: Sánchez Baer MD Signed: 10/04/2020 4:41 PM Workstation Name: [id number]
[2020-10-04 16:46] LABS: Basophils # (Auto) 0.1 K/mm3 (0.0-0.1); Basophils % (Auto) 0.7 % (0.0-1.8); Lymphocytes # (Auto) 0.9 K/mm3 (1.2-5.4); Lymphocytes % (Auto) 10.8 % (13.4-35.0); Mean Corpuscular HGB Conc 33 % (32-34); Mean Corpuscular Volume 91 fl (84-94); Monocytes # (Auto) 0.4 K/mm3 (0.0-0.8); Monocytes % (Auto) 4.2 % (0.0-7.3); Platelet Count 301 K/mm3 (140-440); Red Blood Count 1.03 M/mm3 (3.65-5.03); Red Cell Distribution Width 16.9 % (13.2-15.2)
--- NOTE | 2020-10-04 16:46 | Emergency Department Report ---
ED Neuro Deficit HPI - General Stated Complaint: STROKE Time Seen by Provider: 10/04/20 16:24 - History of Present Illness Initial Comments: [facility] Date of Service: 10/04/2020 16:12:47 Impression: G93.4 - Encephalopathy, unspecified Comments/Sign-Out: the patient is very encephalopathic he's difficult to arouse he seems more toxic metabolic altered mental status. His last known normal is very ambiguous he had some coffee-ground emesis per nursing staff at his facility. Strongly suspect this is more toxic metabolic altered mental status and stroke although seizure or stroke is possible in conjunction. He is not a TPA candidate he is also not an appropriate neuro-interventional candidate with being nonambulatory and dementia. Do recommend toxic metabolic workup stroke/altered mental status wor kup. He'll need evaluation for potential GI bleeding so would hold antiplatelets at this point in time Metrics: Last Known Well: 10/03/2020 15:00:00 [employer] Notification Time: 10/04/2020 16:12:23 Arrival Time: 10/04/2020 16:14:00 Stamp Time: 10/04/2020 16:12:47 Time First Login Attempt: 10/04/2020 16:16:03 Symptoms: AMS NIHSS Start Assessment Time: 10/04/2020 16:24:44 Patient is not a candidate for Alteplase/Activase. Patient was not deemed candidate for Alteplase/Activase thrombolytics because of Last Well Known Above 4.[address] head showed no acute hemorrhage or acute core infarct. Clinical Presentation is not Suggestive of Large Vessel Occlusive Disease Radiologist was not called back for review of advanced imaging because na ED Physician notified of diagnostic impression and management plan on 10/04/2020 16:45:12 Our recommendations are outlined below. Recommendations: Activate Stroke Protocol Admission/Order Set Stroke/Telemetry Floor Neuro Checks Bedside Swallow Eval DVT Prophylaxis IV Fluids, Normal Saline Head of Bed 30 Degrees Euglycemia and Avoid Hyperthermia (PRN Acetaminophen) Hold Antithrombotics for Now Sign Out: Discussed with Emergency Department Provider History of Present Illness: Patient is a 60 year old Male. Patient was brought by EMS for symptoms of AMS the patient is a 60-year-old gentleman with significant chronic debility a history of dementia, hypertension, hyperlipidemia, renal failure on dialysis, bilateral [id number] amputations. After speaking with the patient's nurse at his facility it sounds like his last known normal sometime yesterday when she saw him between 3 and 4 PM. He may have been seen after that but it is not clear if he was normal or not. Today at 3 PM when she came on shift she was told by the MARKET MANAGER he's not been acting right all day not speaking as much and when she went into the room she found him not really speaking with coffee-ground emesis. He also was Covid positive earlier in August. Past Medical History: Hypertension Diabetes Mellitus Hyperlipidemia There is NO history of Coronary Artery Disease There is NO history of Stroke Anticoagulant use: No Antiplatelet use: asa Examination: BP(130/70), Pulse(72), Blood Glucose(unremarkable per EMS) 1A: Level of Consciousness - Requires repeated stimulation to arouse + 2 1B: Ask Month and Age - Could Not Answer Either Question Correctly + 2 1C: Blink Eyes & Squeeze Hands - Performs 0 Tasks + 2 2: Test Horizontal Extraocular Movements - Normal + 0 3: Test Visual Sarkar - No Visual Loss + 0 4: Test Facial Palsy (Use Grimace if Obtunded) - Normal symmetry + 0 5A: Test Left Arm Motor Drift - Some Effort Against [place] + 2 5B: Test Right Arm Motor Drift - Some Effort Against [place] + 2 6A: Test Left Leg Motor Drift - Amputation/Joint Fusion + 0 6B: Test Right Leg Motor Drift - Amputation/Joint Fusion + 0 7: Test Limb Ataxia (FNF/Heel-Rivera) - No Ataxia + 0 8: Test Sensation - Normal; No sensory loss + 0 9: Test Language/Aphasia - Mute/Global Aphasia: No Usable Speech/Auditory Comprehension + 3 10: Test Dysarthria - Mute/Anarthric + 2 11: Test Extinction/Inattention - No abnormality + 0 NIHSS Score: 15 Pre-Morbid Modified Ranking Scale: 4 Points = Moderately severe disability; unable to walk and attend to bodily needs without assistance Patient/Family was informed the Neurology Consult would happen via TeleHealth consult by way of interactive audio and video telecommunications and consented to receiving care in this manner. Due to the immediate potential for life-threatening deterioration due to underlying acute neurologic illness, I spent 35 minutes providing critical care. This time includes time for face to face visit via telemedicine, review of medical records, imaging studies and discussion of findings with providers, the patient and/or family. Dr Elina Camacho [facility] Case [id number] - Related Data Home Medications: Home Medications Medication Instructions Recorded Confirmed Last Taken diphenhydrAMINE [Benadryl CAP] 25 mg PO Q6HR PRN 12/27/16 09/04/20 05/24/19 Insulin Lispro [Humalog 100 See Protocol SQ AC 02/14/17 09/04/20 05/22/19 UNITS/ML Kwikpen] Donepezil HCl 10 mg PO QHS 11/10/18 09/04/20 05/25/19 Sevelamer Carbonate 2,400 mg PO TIDWM 11/10/18 09/04/20 05/25/19 Epoetin Darvin 10,000 Unit [Procrit] 10,000 unit IJ PRN 07/11/19 09/04/20 Unknown Previous Rx's Medication Instructions Recorded Last Taken Type ALBUTEROL NEB's [Proventil 0.083% 2.5 mg IH Q4HRT PRN #30 nebu 11/07/19 Unknown Rx NEBS] Ascorbic Acid [Vitamin C] 500 mg PO BID #60 tablet 11/07/19 Unknown Rx AtorvaSTATin [Lipitor] 40 mg PO QHS #30 tablet 11/07/19 Unknown Rx Cinacalcet [Sensipar] 30 mg PO QDAY #30 tablet 11/07/19 Unknown Rx Ferrous Sulfate [Feosol 325 MG tab] 325 mg PO BID #60 tablet 11/07/19 Unknown Rx Folic Acid [Folvite] 1 mg PO DAILY #30 tablet 11/07/19 Unknown Rx Thiamine [Vitamin B-1] 100 mg PO DAILY #30 tablet 11/07/19 Unknown Rx bisacodyL [Dulcolax tab] 10 mg PO QDAY PRN #30 tablet 11/07/19 Unknown Rx levETIRAcetam [Keppra TAB] 250 mg PO BID #30 tablet 11/07/19 05/25/19 Rx Aspirin [Aspirin BABY CHEW TAB] 81 mg PO QDAY #30 tab.chew 09/17/20 Unknown Rx Insulin Glargine [Lantus VIAL] 10 units SUB-Q QHS units 09/17/20 Unknown Rx Insulin Lispro [Humalog] 0 unit SUB-Q ACHS vial 09/17/20 Unknown Rx Insulin Lispro [Humalog] 5 unit SUB-Q AC vial 09/17/20 Unknown Rx Pantoprazole [Protonix TAB] 40 mg PO BID #15 tablet 09/17/20 Unknown Rx amLODIPine 5 mg PO QDAY tablet 09/17/20 Unknown Rx Allergies/Adverse Reactions: Allergies Allergy/AdvReac Type Severity Reaction Status Date / Time Penicillins Allergy Unknown Verified 07/11/19 17:31 ED Review of Systems ROS: Stated complaint: STROKE Other details as noted in HPI ED Past Medical Hx - Past Medical History Hx Hypertension: Yes Hx Diabetes: Yes Hx GERD: Yes Hx Renal Disease: Yes Hx Seizures: Yes Hx Kidney Stones: Yes Hx Asthma: Yes Hx Dementia: Yes Additional medical history: Anemia - Surgical History Additional Surgical History: Left BKA, 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] - Social History Smoking Status: Unknown if ever smoked Substance Use Type: None - Medications Home Medications: Home Medications Medication Instructions Recorded Confirmed Last Taken Type diphenhydrAMINE [Benadryl CAP] 25 mg PO Q6HR PRN 12/27/16 09/04/20 05/24/19 History Insulin Lispro [Humalog 100 See Protocol SQ AC 02/14/17 09/04/20 05/22/19 History UNITS/ML Kwikpen] Donepezil HCl 10 mg PO QHS 11/10/18 09/04/20 05/25/19 History Sevelamer Carbonate 2,400 mg PO TIDWM 11/10/18 09/04/20 05/25/19 History Epoetin Darvin 10,000 Unit [Procrit] 10,000 unit IJ PRN 07/11/19 09/04/20 Unknown History ALBUTEROL NEB's [Proventil 0.083% 2.5 mg IH Q4HRT PRN #30 nebu 11/07/19 09/04/20 Unknown Rx NEBS] Ascorbic Acid [Vitamin C] 500 mg PO BID #60 tablet 11/07/19 09/04/20 Unknown Rx AtorvaSTATin [Lipitor] 40 mg PO QHS #30 tablet 11/07/19 09/04/20 Unknown Rx Cinacalcet [Sensipar] 30 mg PO QDAY #30 tablet 11/07/19 09/04/20 Unknown Rx Ferrous Sulfate [Feosol 325 MG tab] 325 mg PO BID #60 tablet 11/07/19 09/04/20 Unknown Rx Folic Acid [Folvite] 1 mg PO DAILY #30 tablet 11/07/19 09/04/20 Unknown Rx Thiamine [Vitamin B-1] 100 mg PO DAILY #30 tablet 11/07/19 09/04/20 Unknown Rx bisacodyL [Dulcolax tab] 10 mg PO QDAY PRN #30 tablet 11/07/19 09/04/20 Unknown Rx levETIRAcetam [Keppra TAB] 250 mg PO BID #30 tablet 11/07/19 09/04/20 05/25/19 Rx Aspirin [Aspirin BABY CHEW TAB] 81 mg PO QDAY #30 tab.chew 09/17/20 09/04/20 Unknown Rx Insulin Glargine [Lantus VIAL] 10 units SUB-Q QHS units 09/17/20 Unknown Rx Insulin Lispro [Humalog] 0 unit SUB-Q ACHS vial 09/17/20 Unknown Rx Insulin Lispro [Humalog] 5 unit SUB-Q AC vial 09/17/20 Unknown Rx Pantoprazole [Protonix TAB] 40 mg PO BID #15 tablet 09/17/20 09/04/20 Unknown Rx amLODIPine 5 mg PO QDAY tablet 09/17/20 Unknown Rx ED Neuro Physical Exam - General Suspected Stroke: No Critical care attestation.: If time is entered above; I have spent that time in minutes in the direct care of this critically ill patient, excluding procedure time. ED Disposition Clinical Impression: Acute encephalopathy AMS (altered mental status) Qualifiers: Altered mental status type: somnolence Qualified Code(s): R40.0 - Somnolence Disposition: OP ADMIT IP TO THIS HOSP Is pt being admited?: Yes Condition: Stable
[2020-10-04 16:57] LABS: Hematocrit 9.3 % (35.5-45.6)
[2020-10-04 16:59] LABS: INR 1.3 (0.87-1.13)
[2020-10-04 17:00] LABS: Calcium 8.1 mg/dL (8.4-10.2); Hemolysis Index 5
[2020-10-04 17:06] LABS: BUN/Creatinine Ratio 9; Blood Urea Nitrogen > 112 mg/dL (9-20)
[2020-10-04] MEDS ORDERED: SODIUM CHLORIDE 0.9% 500 ML 500 ML IV ONE (17:10)
[2020-10-04] MEDS ORDERED: PANTOPRAZOLE 40 MG INJ IV ONE (17:11)
[2020-10-04] MEDS ORDERED: DEXTROSE 50% IN WATER (25GM) 50 ML SYRINGE IV ONE ×2 (17:12→22:30)
[2020-10-04] MEDS ORDERED: INSULIN REGULAR, HUMAN 100 UNITS/1 ML IV ONE ×2 (17:12→22:30)
[2020-10-04 17:28] LABS: Creatine Kinase MB 4.7 ng/mL (0.0-4.0)
[2020-10-04 17:31] LABS: Chol/HDL Ratio 2.75 %; HDL Cholesterol 37 mg/dL (40-59); LDL Cholesterol,Direct 62 mg/dL (50-130)
[2020-10-04 17:39] LABS: Free T4 (Free Thyroxine) 0.52 ng/dL (0.76-1.46)
[2020-10-04] MEDS ORDERED: SODIUM BICARB 8.4% 50 MEQ/50 ML SYRINGE IV ONE ×2 (18:00→22:30)
[2020-10-04] MEDS ORDERED: CALCIUM GLUCONATE 1,000 MG in SODIUM CHLORIDE 0.9% 100 ML IV ONE (18:00)
--- NOTE | 2020-10-04 19:12 | History and Physical Report ---
History of Present Illness Chief complaint: He is confused History of present illness: 60 YO Male Correction Facility Resident at [facility] with ESRD on HD (T,R,Sa), DM, HLD, Debility, Seizure Disorder, GERD, Dementia presents to ED for evaluation. Patient is confused and lethargic at the time of my exam and is unable to provide history. Patient history provided by retirement facility staff, ED staff, and EMS. Pt was noticed by SNF staff to have increased confusion and decreased interaction with staff. EMS notified, and upon arrival the patient was found to be in distress and was transported to [facility] for further care and evaluation. Pt seen and evaluated in ED. All lab and imaging studies reviewed. Patient was found to be Hemoccult positve with GI Bleeding with blood loss anemia with HGB of 3, metabolic encephalopathy, acidosis. Pt admitted to ICU for medical management and medical stabilization due to increased risk of decompensation. No reports of fever, chills, CP, Palpitations, productive cough, skin rash, trauma, syncope, vertigo, seizure activity, or recent ill contact, or known exposure to COVID-19. No further history obtainable. Prior admission on 09/04/2020 reviewed. All listed medication reconciled at time of admission. Patient is confused and lethargic the time of my evaluation but has a positive gag reflex and is able to protect his airway without difficulty. Advanced care planning conducted in ED. GI team consulted in ED. Nephrology team consulted in ED. Past History Past Medical History: ESRD, GERD, seizures, other (See HPI) Past Surgical History: Other (Dialysis access) Social history: Family history: diabetes, hypertension Medications and Allergies Allergies Allergy/AdvReac Type Severity Reaction Status Date / Time Penicillins Allergy Unknown Verified 07/11/19 17:31 Home Medications Medication Instructions Recorded Confirmed Last Taken Type diphenhydrAMINE [Benadryl CAP] 25 mg PO Q6HR PRN 12/27/16 09/04/20 05/24/19 History Insulin Lispro [Humalog 100 See Protocol SQ AC 02/14/17 09/04/20 05/22/19 History UNITS/ML Kwikpen] Donepezil HCl 10 mg PO QHS 11/10/18 09/04/20 05/25/19 History Sevelamer Carbonate 2,400 mg PO TIDWM 11/10/18 09/04/2019 History Epoetin Darvin 10,000 Unit [Procrit] 10,000 unit IJ PRN 07/11/19 09/04/20 Unknown History ALBUTEROL NEB's [Proventil 0.083% 2.5 mg IH Q4HRT PRN #30 nebu 11/07/19 09/04/20 Unknown Rx NEBS] Ascorbic Acid [Vitamin C] 500 mg PO BID #60 tablet 11/07/19 09/04/20 Unknown Rx AtorvaSTATin [Lipitor] 40 mg PO QHS #30 tablet 11/07/19 09/04/20 Unknown Rx Cinacalcet [Sensipar] 30 mg PO QDAY #30 tablet 11/07/19 09/04/20 Unknown Rx Ferrous Sulfate [Feosol 325 MG tab] 325 mg PO BID #60 tablet 11/07/19 09/04/20 Unknown Rx Folic Acid [Folvite] 1 mg PO DAILY #30 tablet 11/07/19 09/04/20 Unknown Rx Thiamine [Vitamin B-1] 100 mg PO DAILY #30 tablet 11/07/19 09/04/20 Unknown Rx bisacodyL [Dulcolax tab] 10 mg PO QDAY PRN #30 tablet 11/07/19 09/04/20 Unknown Rx levETIRAcetam [Keppra TAB] 250 mg PO BID #30 tablet 11/07/19 09/04/20 05/25/19 Rx Aspirin [Aspirin BABY CHEW TAB] 81 mg PO QDAY #30 tab.chew 09/17/20 09/04/20 Unknown Rx Insulin Glargine [Lantus VIAL] 10 units SUB-Q QHS units 09/17/20 Unknown Rx Insulin Lispro [Humalog] 0 unit SUB-Q ACHS vial 09/17/20 Unknown Rx Insulin Lispro [Humalog] 5 unit SUB-Q AC vial 09/17/20 Unknown Rx Pantoprazole [Protonix TAB] 40 mg PO BID #15 tablet 09/17/20 09/04/20 Unknown Rx amLODIPine 5 mg PO QDAY tablet 09/17/20 Unknown Rx Active Meds: Active Medications Pantoprazole Sodium 80 mg/ (Sodium Chloride) 100 mls @ 10 mls/hr IV DIRECT LUZ Review of Systems ROS unobtainable: due to mental status Exam - Constitutional General appearance: Present: severe distress - EENT Eyes: Present: PERRL (Conjunctival pallor) ENT: clear oral mucosa, hearing decreased - Neck Neck: Present: supple, normal ROM - Respiratory Respiratory effort: normal Respiratory: bilateral: CTA - Cardiovascular Heart Sounds: Present: S1 & S2. Absent: rub, click - Extremities Extremities: pulses symmetrical, No edema Peripheral Pulses: within normal limits - Abdominal General gastrointestinal: Present: soft, non-tender, non-distended, normal bowel sounds Male genitourinary: Present: normal - Integumentary Integumentary: Present: dry, clammy, pale, decreased turgor - Musculoskeletal Musculoskeletal: generalized weakness - Psychiatric Psychiatric: no appropriate mood/affect, no intact judgment & insight, no memory intact - Neurologic Neurologic: CNII-XII intact, no focal deficits, moves all extremities, no gait normal HEART Score - HEART Score Troponin: Troponin T 0.698 ng/mL (0.00-0.029) H* 10/04/20 16:38 Results - Labs CBC & Chem 7: 10/04/20 16:38 10/04/20 16:38 Labs: Abnormal lab results 10/04/20 10/04/20 10/04/20 Range/Units 16:38 16:38 16:38 RBC 1.03 L (3.65-5.03) M/mm3 Hgb 3.0 L* (11.8-15.2) gm/dl Hct 9.3 L* (35.5-45.6) % RDW 16.9 H (13.2-15.2) % Lymph % (Auto) 10.8 L (13.4-35.0) % Lymph # (Auto) 0.9 L (1.2-5.4) K/mm3 Seg Neutrophils % 84.3 H (40.0-70.0) % PT 16.2 H (12.2-14.9) Sec. INR 1.30 H (0.87-1.13) Sodium 149 H (137-145) mmol/L Potassium 6.0 H (3.6-5.0) mmol/L Carbon Dioxide 18 L (22-30) mmol/L BUN > 112 H (9-20) mg/dL Creatinine 12.2 H (0.8-1.3) mg/dL Calcium 8.1 L (8.4-10.2) mg/dL CK-MB (CK-2) (0.0-4.0) ng/mL CK-MB (CK-2) Rel Index (0-4) Troponin T 0.698 H* (0.00-0.029) ng/mL HDL Cholesterol 37 L (40-59) mg/dL Free T4 (0.76-1.46) ng/dL Crossmatch 10/04/20 10/04/20 10/04/20 Range/Units 16:54 16:54 16:54 RBC (3.65-5.03) M/mm3 Hgb (11.8-15.2) gm/dl Hct (35.5-45.6) % RDW (13.2-15.2) % Lymph % (Auto) (13.4-35.0) % Lymph # (Auto) (1.2-5.4) K/mm3 Seg Neutrophils % (40.0-70.0) % PT (12.2-14.9) Sec. INR (0.87-1.13) Sodium (137-145) mmol/L Potassium (3.6-5.0) mmol/L Carbon Dioxide (22-30) mmol/L BUN (9-20) mg/dL Creatinine (0.8-1.3) mg/dL Calcium (8.4-10.2) mg/dL CK-MB (CK-2) 4.7 H (0.0-4.0) ng/mL CK-MB (CK-2) Rel Index 5.1 H (0-4) Troponin T (0.00-0.029) ng/mL HDL Cholesterol (40-59) mg/dL Free T4 0.52 L (0.76-1.46) ng/dL Crossmatch See Detail Assessment and Plan - Patient Problems (1) GI bleed Current Visit: Yes Status: Acute Plan to address problem: GI bleed protocol: Admit to ICU, packed red blood cell transfusion, gastroenterology team consulted. Patient is unable to be transferred to outside facility patient transferred declined in the emergency department. Patient admitted to ICU for medical stabilization. IV PPI therapy, supportive care. The high probability of a clinically significant, sudden or life threatening deterioration of the [cardiac, renal, pulmonary, neuro, GI] system(s) required my full and direct attention, intervention and personal management. The aggregate critical care time was [95] minutes. This time is in addition to time spent performing reported procedures but includes the following: [x] Data Review and interpretation [x] Patient assessment and monitoring of vital signs [x] Documentation [x] Medication orders and management (2) Metabolic encephalopathy Current Visit: Yes Status: Acute Plan to address problem: CT head, neuro check, seizure precautions, aspiration precautions, supportive care. (3) Hyperkalemia Current Visit: Yes Status: Acute Plan to address problem: Supportive care, dialysis as per renal team. (4) End stage renal disease Current Visit: Yes Status: Acute Plan to address problem: Nephrology team consulted in ED, avoid nephrotoxic agents, dialysis as per renal team. Cell transfusion with dialysis. (5) Advance care planning Current Visit: Yes Status: Acute Plan to address problem: Disease education conducted, patient is full code, prognosis discussed, care plan discussed, +30 minutes. (6) DVT prophylaxis Current Visit: Yes Status: Acute Plan to address problem: SCD to bilateral lower extremities while in bed, hold anticoagulation for now due to GI bleed.
[2020-10-04] MEDS ORDERED: ALBUTEROL 2.5 MG/3 ML NEBU IH PRN (19:33)
[2020-10-04] MEDS ORDERED: SODIUM CHLORIDE 0.9% 500 ML 500 ML IV NR (19:37)
[2020-10-04] MEDS ORDERED: SODIUM CHLORIDE 0.9% 100 ML IV PRN (20:03)
--- NOTE | 2020-10-04 21:49 | Event Note ---
Date: 10/04/20 Pt presented with hyperkalemia and severe anemia. Stat hemodialysis ordered. Spoke to nursing electrical & instrumentation supervisor to call the [facility] dialysis nurse.
[2020-10-05] MEDS: PANTOPRAZOLE 80 MG in SODIUM CHLORIDE 0.9% 100 ML IV SCH (05:57)
[2020-10-05 09:53] LABS: Basophils # (Auto) 0.1 K/mm3 (0.0-0.1); Basophils % (Auto) 0.5 % (0.0-1.8); Eosinophils # (Auto) 0.1 K/mm3 (0.0-0.4); Eosinophils % (Auto) 0.4 % (0.0-4.3); Hematocrit 36.2 % (35.5-45.6); Hemoglobin 11.8 gm/dl (11.8-15.2); Lymphocytes # (Auto) 1.1 K/mm3 (1.2-5.4); Lymphocytes % (Auto) 7.7 % (13.4-35.0); Mean Corpuscular HGB Conc 33 % (32-34); Mean Corpuscular Volume 89 fl (84-94); Monocytes # (Auto) 0.8 K/mm3 (0.0-0.8); Monocytes % (Auto) 6.1 % (0.0-7.3); Platelet Count 265 K/mm3 (140-440); Red Blood Count 4.05 M/mm3 (3.65-5.03); Red Cell Distribution Width 14.8 % (13.2-15.2)
[2020-10-05 10:33] LABS: Albumin 3.1 g/dL (3.9-5); Calcium 8.7 mg/dL (8.4-10.2)
--- NOTE | 2020-10-05 11:15 | Progress Note ---
Assessment and Plan --Positive for COVID-[address] on COVID-19 protocol Patient does not appear to be hypoxic We will continue to follow inflammatory markers Not a candidate for remdesivir, will consult ID for further recommendation --Acute GI bleed Hemoglobin was 3.0 on admission, continue PPI therapy Patient received total 4 units of packed RBC GI consulted, will follow recommendation Continue to follow H&H --SEvere anemia due to blood loss Continue to monitor H&H, status post 4 units of packed RBC transfusion Monitor for active bleed, GI consulted --Acute metabolic encephalopathy CT head without any acute process patient has underlying dementia Continue to monitor with neuro check, seizure precautions, aspiration precautions, supportive care. -- Hyperkalemia Due to end-stage renal disease Kayexalate as needed for potassium greater than 5.2 Supportive care, dialysis as per renal team. Monitor BMP --Hypertension, accelerated Resume home meds and adjust medications as needed IV hydralazine to keep SBP less than 160 -- End stage renal disease Nephrology team consulted in ED, avoid nephrotoxic agents, dialysis as per renal team. Monitor BMP --Seizure disorder, cont AED --Peripheral vascular disease, status post bilateral lower extremity amputation Continue supportive care --DVT prophylaxis SCD to bilateral lower extremities while in bed, hold anticoagulation for now due to GI bleed. --Dull code status Brief history: The patient is a 60 YO male with history significant for DM type 2, HTN, Anemia, ESRD on hemodialysis (TTS), GERD, Seizure disorder, Cognitive decline and Long-Term Resident who was sent to [facility] ED 10/04 with c/o increased confusion and decreased interaction with staff. In the ER pt was found to be Hemoccult positve and Hb of 3. Pt was admitted to ICU for further evaluation and treatment. Patient received total 4 units of PRBC. Nephrology was consulted for treatment of ESRD. GI consulted for the evaluation of GI bleed and severe anemia. Daily course: 10/05/20: Mental status much improved, patient is very cooperative today. H/H stable, s/p transfusion of 4 units of PRBC. K level improved. follow BMP. planned for Hd today. transfer to [facility] with remote tele, patient tested positive for Covid, continue to follow inflammatory markers and consult ID. Subjective Date of service: 10/05/20 Interval history: Patient seen and examined. Medical records and medication list reviewed. No acute event overnight noted by the RN. Patient denies any chest pain or difficulty breathing. Patient is tolerating diet. Patient had bowel movement with black-colored loose stool Hemoglobin appears to be stable today after receiving 4 units of packed RBC Discussed plan of care at bedside with patient and with RN. Objective - Exam Narrative Exam: GENERAL: well-developed elderly -[place] male lying on bed appeared to be in no discomfort. HEENT: Normocephalic. Atraumatic. No conjunctival congestion or icterus. Patient has moist mucous membranes. NECK: Supple. Trachea midline. CHEST/LUNGS: Clear to auscultated bilaterally, breathing nonlabored. No wheezes crackles or rhonchi. HEART/CARDIOVASCULAR: Regular in rate and rhythm. S1 and S2 positive. ABDOMEN: Abdomen is soft, nontender. Patient has normal bowel sounds. SKIN: There is no rash. Warm and dry. NEURO: No focal motor deficit. Follows command. MUSCULOSKELETAL: No joint effusion or tenderness. R AKA, L BKA EXTRIMITY: No edema, PSYCH: Cooperative. - Constitutional Vitals: Vital Signs - 12hr 10/04/20 10/04/20 10/04/20 23:12 23:15 23:30 Temperature 97.6 F 97.6 F 97.6 F Pulse Rate 96 H 93 H 91 H Respiratory 18 19 11 L Rate Blood Pressure 137/88 141/81 125/70 O2 Sat by Pulse 99 99 98 Oximetry O2 Sat by Pulse Oximetry [ Anterior Bilateral Throughout] 10/04/20 10/04/20 10/05/20 23:45 23:46 00:00 Temperature 97.6 F Pulse Rate 83 92 H 90 Respiratory 20 15 Rate Blood Pressure 125/70 100/63 130/71 O2 Sat by Pulse 97 99 Oximetry O2 Sat by Pulse 99 Oximetry [ Anterior Bilateral Throughout] 10/05/20 10/05/20 10/05/20 00:07 00:10 00:30 Temperature Pulse Rate 90 90 90 Respiratory 20 17 17 Rate Blood Pressure 136/74 136/74 O2 Sat by Pulse 100 100 100 Oximetry O2 Sat by Pulse Oximetry [ Anterior Bilateral Throughout] 10/05/20 10/05/20 10/05/20 00:35 00:40 00:50 Temperature 97.1 F L Pulse Rate 87 89 Respiratory 18 18 Rate Blood Pressure 139/73 139/73 O2 Sat by Pulse 100 98 Oximetry O2 Sat by Pulse Oximetry [ Anterior Bilateral Throughout] 10/05/20 10/05/20 10/05/20 01:00 01:03 01:11 Temperature Pulse Rate 85 88 87 Respiratory 13 13 Rate Blood Pressure 139/73 O2 Sat by Pulse Oximetry O2 Sat by Pulse Oximetry [ Anterior Bilateral Throughout] 10/05/20 10/05/20 10/05/20 01:21 01:31 01:41 Temperature Pulse Rate 87 88 88 Respiratory 12 14 13 Rate Blood Pressure 138/81 138/81 138/81 O2 Sat by Pulse 100 100 100 Oximetry O2 Sat by Pulse Oximetry [ Anterior Bilateral Throughout] 10/05/20 10/05/20 10/05/20 01:46 01:51 02:01 Temperature 97.2 F L Pulse Rate 86 86 89 Respiratory 14 13 12 Rate Blood Pressure 169/81 169/81 181/109 O2 Sat by Pulse 100 100 100 Oximetry O2 Sat by Pulse Oximetry [ Anterior Bilateral Throughout] 10/05/20 10/05/20 10/05/20 02:04 02:11 02:19 Temperature 97.2 F L Pulse Rate 87 87 Respiratory 12 14 Rate Blood Pressure 181/109 155/105 O2 Sat by Pulse 100 99 100 Oximetry O2 Sat by Pulse Oximetry [ Anterior Bilateral Throughout] 10/05/20 10/05/20 10/05/20 02:21 02:31 02:41 Temperature Pulse Rate 89 88 86 Respiratory 13 14 13 Rate Blood Pressure 155/115 180/77 155/115 O2 Sat by Pulse 99 100 100 Oximetry O2 Sat by Pulse Oximetry [ Anterior Bilateral Throughout] 10/05/20 10/05/20 10/05/20 02:49 02:51 03:00 Temperature 97.1 F L Pulse Rate 96 H 88 89 Respiratory 16 11 L 12 Rate Blood Pressure 175/74 175/74 186/78 O2 Sat by Pulse 100 100 100 Oximetry O2 Sat by Pulse Oximetry [ Anterior Bilateral Throughout] 10/05/20 10/05/20 10/05/20 03:11 03:19 03:21 Temperature 97.3 F L Pulse Rate 88 89 86 Respiratory 14 12 13 Rate Blood Pressure 186/78 177/73 177/73 O2 Sat by Pulse 100 100 100 Oximetry O2 Sat by Pulse Oximetry [ Anterior Bilateral Throughout] 10/05/20 10/05/20 10/05/20 03:30 03:41 03:49 Temperature 97.2 F L Pulse Rate 87 87 89 Respiratory 13 11 L 12 Rate Blood Pressure 164/69 164/69 179/77 O2 Sat by Pulse 100 100 100 Oximetry O2 Sat by Pulse Oximetry [ Anterior Bilateral Throughout] 10/05/20 10/05/20 10/05/20 03:51 04:00 04:01 Temperature 97.5 F L Pulse Rate 91 H 91 H Respiratory 13 12 Rate Blood Pressure 179/77 166/86 O2 Sat by Pulse 95 100 95 Oximetry O2 Sat by Pulse Oximetry [ Anterior Bilateral Throughout] 10/05/20 10/05/20 10/05/20 04:11 04:19 04:21 Temperature 97.2 F L Pulse Rate 87 87 86 Respiratory 12 14 13 Rate Blood Pressure 166/86 157/81 157/81 O2 Sat by Pulse 98 100 100 Oximetry O2 Sat by Pulse Oximetry [ Anterior Bilateral Throughout] 10/05/20 10/05/20 10/05/20 04:31 04:41 04:49 Temperature 97.5 F L Pulse Rate 89 91 H 89 Respiratory 10 L 12 14 Rate Blood Pressure 155/74 155/74 155/71 O2 Sat by Pulse 100 88 100 Oximetry O2 Sat by Pulse Oximetry [ Anterior Bilateral Throughout] 10/05/20 10/05/20 10/05/20 04:51 05:01 05:11 Temperature Pulse Rate 89 89 94 H Respiratory 14 14 19 Rate Blood Pressure 188/146 155/71 155/71 O2 Sat by Pulse 99 100 100 Oximetry O2 Sat by Pulse Oximetry [ Anterior Bilateral Throughout] 10/05/20 10/05/20 10/05/20 05:21 05:31 05:40 Temperature Pulse Rate 93 H 93 H 92 H Respiratory 18 13 12 Rate Blood Pressure 175/80 193/83 155/115 O2 Sat by Pulse 91 88 Oximetry O2 Sat by Pulse Oximetry [ Anterior Bilateral Throughout] 10/05/20 10/05/20 10/05/20 05:51 06:01 06:11 Temperature Pulse Rate 94 H 97 H 96 H Respiratory 20 20 13 Rate Blood Pressure 185/95 174/104 174/104 O2 Sat by Pulse 95 95 98 Oximetry O2 Sat by Pulse Oximetry [ Anterior Bilateral Throughout] 10/05/20 10/05/20 10/05/20 06:21 06:31 06:41 Temperature Pulse Rate 99 H 95 H 95 H Respiratory 20 13 17 Rate Blood Pressure 193/83 185/77 185/77 O2 Sat by Pulse 95 84 97 Oximetry O2 Sat by Pulse Oximetry [ Anterior Bilateral Throughout] 10/05/20 10/05/20 10/05/20 06:51 07:00 07:11 Temperature Pulse Rate 97 H 95 H 100 H Respiratory 14 19 21 Rate Blood Pressure 186/81 193/85 193/85 O2 Sat by Pulse 99 98 95 Oximetry O2 Sat by Pulse Oximetry [ Anterior Bilateral Throughout] 10/05/20 10/05/20 10/05/20 07:21 07:31 07:41 Temperature Pulse Rate 94 H 98 H 95 H Respiratory 14 19 13 Rate Blood Pressure 192/95 178/88 178/88 O2 Sat by Pulse 100 96 88 Oximetry O2 Sat by Pulse Oximetry [ Anterior Bilateral Throughout] 10/05/20 10/05/20 10/05/20 07:51 08:00 08:01 Temperature 97.9 F Pulse Rate 95 H 101 H Respiratory 14 24 Rate Blood Pressure 161/63 204/93 O2 Sat by Pulse 92 100 98 Oximetry O2 Sat by Pulse Oximetry [ Anterior Bilateral Throughout] 10/05/20 10/05/20 10/05/20 08:11 08:21 08:30 Temperature Pulse Rate 96 H 103 H 94 H Respiratory 15 17 16 Rate Blood Pressure 204/93 180/120 200/87 O2 Sat by Pulse 97 100 97 Oximetry O2 Sat by Pulse Oximetry [ Anterior Bilateral Throughout] 10/05/20 10/05/20 10/05/20 08:41 08:51 09:01 Temperature Pulse Rate 90 97 H 97 H Respiratory 11 L 15 17 Rate Blood Pressure 200/87 O2 Sat by Pulse 93 66 L 96 Oximetry O2 Sat by Pulse Oximetry [ Anterior Bilateral Throughout] 10/05/20 10/05/20 10/05/20 09:11 09:21 09:31 Temperature Pulse Rate 98 H 102 H 97 H Respiratory 16 16 14 Rate Blood Pressure O2 Sat by Pulse 77 L 91 93 Oximetry O2 Sat by Pulse Oximetry [ Anterior Bilateral Throughout] 10/05/20 10/05/20 10/05/20 09:41 09:51 10:00 Temperature Pulse Rate 103 H 100 H 98 H Respiratory 19 16 Rate Blood Pressure O2 Sat by Pulse 93 87 Oximetry O2 Sat by Pulse Oximetry [ Anterior Bilateral Throughout] 10/05/20 10/05/20 10/05/20 10:01 10:11 10:21 Temperature Pulse Rate 100 H 99 H 99 H Respiratory 16 14 17 Rate Blood Pressure O2 Sat by Pulse 93 93 96 Oximetry O2 Sat by Pulse Oximetry [ Anterior Bilateral Throughout] - Labs CBC & Chem 7: 10/06/20 05:35 10/06/20 05:35 Labs: Abnormal lab results 10/04/20 10/04/20 10/04/20 Range/Units 16:38 16:38 16:38 WBC (4.5-11.0) K/mm3 RBC 1.03 L (3.65-5.03) M/mm3 Hgb 3.0 L* (11.8-15.2) gm/dl Hct 9.3 L* (35.5-45.6) % RDW 16.9 H (13.2-15.2) % Lymph % (Auto) 10.8 L (13.4-35.0) % Lymph # (Auto) 0.9 L (1.2-5.4) K/mm3 Seg Neutrophils % 84.3 H (40.0-70.0) % Seg Neutrophils # (1.8-7.7) K/mm3 PT 16.2 H (12.2-14.9) Sec. INR 1.30 H (0.87-1.13) Sodium 149 H (137-145) mmol/L Potassium 6.0 H (3.6-5.0) mmol/L Carbon Dioxide 18 L (22-30) mmol/L BUN > 112 H (9-20) mg/dL Creatinine 12.2 H (0.8-1.3) mg/dL Glucose (75-100) mg/dL POC Glucose (70-105) mg/dL Calcium 8.1 L (8.4-10.2) mg/dL CK-MB (CK-2) (0.0-4.0) ng/mL CK-MB (CK-2) Rel Index (0-4) Troponin T 0.698 H* (0.00-0.029) ng/mL Total Protein (6.3-8.2) g/dL Albumin (3.9-5) g/dL HDL Cholesterol 37 L (40-59) mg/dL Free T4 (0.76-1.46) ng/dL Crossmatch 10/04/20 10/04/20 10/04/20 Range/Units 16:54 16:54 16:54 WBC (4.5-11.0) K/mm3 RBC (3.65-5.03) M/mm3 Hgb (11.8-15.2) gm/dl Hct (35.5-45.6) % RDW (13.2-15.2) % Lymph % (Auto) (13.4-35.0) % Lymph # (Auto) (1.2-5.4) K/mm3 Seg Neutrophils % (40.0-70.0) % Seg Neutrophils # (1.8-7.7) K/mm3 PT (12.2-14.9) Sec. INR (0.87-1.13) Sodium (137-145) mmol/L Potassium (3.6-5.0) mmol/L Carbon Dioxide (22-30) mmol/L BUN (9-20) mg/dL Creatinine (0.8-1.3) mg/dL Glucose (75-100) mg/dL POC Glucose (70-105) mg/dL Calcium (8.4-10.2) mg/dL CK-MB (CK-2) 4.7 H (0.0-4.0) ng/mL CK-MB (CK-2) Rel Index 5.1 H (0-4) Troponin T (0.00-0.029) ng/mL Total Protein (6.3-8.2) g/dL Albumin (3.9-5) g/dL HDL Cholesterol (40-59) mg/dL Free T4 0.52 L (0.76-1.46) ng/dL Crossmatch See Detail 10/04/20 10/05/20 10/05/20 Range/Units 21:14 08:45 08:45 WBC 13.9 H (4.5-11.0) K/mm3 RBC (3.65-5.03) M/mm3 Hgb (11.8-15.2) gm/dl Hct (35.5-45.6) % RDW (13.2-15.2) % Lymph % (Auto) 7.7 L (13.4-35.0) % Lymph # (Auto) 1.1 L (1.2-5.4) K/mm3 Seg Neutrophils % 85.3 H (40.0-70.0) % Seg Neutrophils # 11.9 H (1.8-7.7) K/mm3 PT (12.2-14.9) Sec. INR (0.87-1.13) Sodium 146 H (137-145) mmol/L Potassium 5.6 H (3.6-5.0) mmol/L Carbon Dioxide (22-30) mmol/L BUN 81 H (9-20) mg/dL Creatinine 7.9 H (0.8-1.3) mg/dL Glucose 118 H (75-100) mg/dL POC Glucose 116 H (70-105) mg/dL Calcium (8.4-10.2) mg/dL CK-MB (CK-2) (0.0-4.0) ng/mL CK-MB (CK-2) Rel Index (0-4) Troponin T (0.00-0.029) ng/mL Total Protein 5.7 L (6.3-8.2) g/dL Albumin 3.1 L (3.9-5) g/dL HDL Cholesterol (40-59) mg/dL Free T4 (0.76-1.46) ng/dL Crossmatch HEART Score - HEART Score Troponin: Troponin T 0.698 ng/mL (0.00-0.029) H* 10/04/20 16:38
[2020-10-05] MEDS ORDERED: HEPARIN 10,000 UNITS/10 ML VIAL IV PRN (11:41)
--- NOTE | 2020-10-05 12:11 | Consultation ---
History of Present Illness Consult date: 10/05/20 History of present illness: 60 YO Male Senior Care Facility Resident at [facility] with ESRD on HD (T,R,Sa), DM, HLD, Debility, Seizure Disorder, GERD, Dementia presents to ED for evaluation. Patient is confused and lethargic at the time of my exam and is unable to provide history. Patient history provided by senior care facility staff, ED staff, and EMS. Pt was noticed by SNF staff to have increased confusion and decreased interaction with staff. EMS notified, and upon arrival the patient was found to be in distress and was transported to [facility] for further care and evaluation. Pt seen and evaluated in ED. All lab and imaging studies reviewed. Patient was found to be Hemoccult positve with GI Bleeding with blood loss anemia with HGB of 3, metabolic encephalopathy, acidosis. Pt admitted to ICU for medical management and medical stabilization due to increased risk of decompensation. No reports of fever, chills, CP, Palpitations, productive cough, skin rash, trauma, syncope, vertigo, seizure activity, or recent ill contact, or known exposure to COVID-19. No further history obtainable. Patient is confused and lethargic the time of my evaluation but has a positive gag reflex and is able to protect his airway without difficulty. GI is consulted. Patient received blood transfusion. Patient sleeping at this time. even if you wake him up he is non communicative. Patient is on room air. o2 saturation. O2 saturation 93%. Chest xray reported no acute findings. Patient afebrile. No leukocytosis. Past History Past Medical History: ESRD, GERD, seizures, other (See HPI) Past Surgical History: Other (Dialysis access) Social history: Family history: diabetes, hypertension Medications and Allergies Allergies Allergy/AdvReac Type Severity Reaction Status Date / Time Penicillins Allergy Unknown Verified 07/11/19 17:31 Home Medications Medication Instructions Recorded Confirmed Last Taken Type diphenhydrAMINE [Benadryl CAP] 25 mg PO Q6HR PRN 12/27/16 10/05/20 05/24/19 History Insulin Lispro [Humalog 100 See Protocol SQ AC 02/14/17 10/05/20 05/22/19 History UNITS/ML Kwikpen] Donepezil HCl 10 mg PO QHS 11/10/18 10/05/20 05/25/19 History Sevelamer Carbonate 2,400 mg PO TIDWM 11/10/18 10/05/20 05/25/19 History Epoetin Darvin 10,000 Unit [Procrit] 10,000 unit IJ PRN 07/11/19 10/05/20 Unknown History ALBUTEROL NEB's [Proventil 0.083% 2.5 mg IH Q4HRT PRN #30 nebu 11/07/19 10/05/20 Unknown Rx NEBS] Ascorbic Acid [Vitamin C] 500 mg PO BID #60 tablet 11/07/19 10/05/20 Unknown Rx AtorvaSTATin [Lipitor] 40 mg PO QHS #30 tablet 11/07/19 10/05/20 Unknown Rx Cinacalcet [Sensipar] 30 mg PO QDAY #30 tablet 11/07/19 10/05/20 Unknown Rx Ferrous Sulfate [Feosol 325 MG tab] 325 mg PO BID #60 tablet 11/07/19 10/05/20 Unknown Rx Folic Acid [Folvite] 1 mg PO DAILY #30 tablet 11/07/19 10/05/20 Unknown Rx Thiamine [Vitamin B-1] 100 mg PO DAILY #30 tablet 11/07/19 10/05/20 Unknown Rx bisacodyL [Dulcolax tab] 10 mg PO QDAY PRN #30 tablet 11/07/19 10/05/20 Unknown Rx levETIRAcetam [Keppra TAB] 250 mg PO BID #30 tablet 11/07/19 10/05/20 05/25/19 Rx Aspirin [Aspirin BABY CHEW TAB] 81 mg PO QDAY #30 tab.chew 09/17/20 10/05/20 Unknown Rx Insulin Glargine [Lantus VIAL] 10 units SUB-Q QHS units 09/17/20 10/05/20 Unknown Rx Insulin Lispro [Humalog] 0 unit SUB-Q ACHS vial 09/17/20 10/05/20 Unknown Rx Insulin Lispro [Humalog] 5 unit SUB-Q AC vial 09/17/20 10/05/20 Unknown Rx Pantoprazole [Protonix TAB] 40 mg PO BID #15 tablet 09/17/20 10/05/20 Unknown Rx amLODIPine 5 mg PO QDAY tablet 09/17/20 10/05/20 Unknown Rx Cinacalcet [Sensipar] 30 mg PO QDAY 10/05/20 10/05/20 Unknown History Divalproex ER [DepaKOTE ER] 250 mg PO DAILY 10/05/20 10/05/20 Unknown History Midodrine [Proamatine] 5 mg PO TID PRN 10/05/20 10/05/20 Unknown History Ondansetron HCl [Zofran] 4 mg PO PRN 10/05/20 10/05/20 Unknown History Sertraline [Zoloft] 50 mg PO QDAY 10/05/20 10/05/20 Unknown History carvediloL [Coreg] 6.25 mg PO BID 10/05/20 10/05/20 Unknown History polyethylene glycoL 3350 [Miralax 17 gm PO BID PRN 10/05/20 10/05/20 Unknown History 3350] traMADoL [Ultram] 50 mg PO Q8HR PRN 10/05/20 10/05/20 Unknown History Active Meds: Active Medications Albuterol (Albuterol 2.5 Mg/3 Ml Nebu) 2.5 mg IH Q3HRT PRN PRN Reason: Shortness Of Breath Amlodipine Besylate (Amlodipine 5 Mg Tab) 5 mg PO QDAY [facility] Carvedilol (Carvedilol 6.25 Mg Tab) 6.25 mg PO BID [facility] Heparin Sodium (Porcine) (Heparin 10,000 Units/10 Ml Vial) 3,000 unit IV CORBY P RN PRN Reason: hemodialysis Pantoprazole Sodium 80 mg/ (Sodium Chloride) 100 mls @ 10 mls/hr IV DIRECT [facility] Last Admin: 10/05/20 05:57 Dose: 8 mg/hr, 10 mls/hr Documented by: Sodium Chloride (Nacl 0.9%) 100 mls @ 999 mls/hr IV CORBY PRN PRN Reason: Hypotension Sodium Chloride (Sodium Chloride 0.9% 10 Ml Flush Syringe) 10 ml IV BID [facility] Last Admin: 10/05/20 10:40 Dose: 10 ml Documented by: Sodium Chloride (Sodium Chloride 0.9% 10 Ml Flush Syringe) 10 ml IV PRN PRN PRN Reason: LINE FLUSH Review of Systems All systems: negative Physical Examination Vital signs: Vital Signs Temp Pulse Resp BP Pulse Ox 97.2 F L 98 H 20 103/59 90 10/04/20 20:59 10/04/20 20:59 10/04/20 20:59 10/04/20 20:59 10/04/20 20:59 General appearance: no acute distress, asleep Eyes: non-icteric Neck: supple Effort: mildly labored Ascultation: Bilateral: diminished breath sounds Integumentary: normal Extremities: no cyanosis, no edema Musculoskeletal: no deformities Gait: other (Unable to assess now.) other (Unable to assess. Patient sleeping.) other (Unable to assess . Patient sleeping.) Results - Laboratory Findings CBC and BMP: 10/06/20 05:35 10/06/20 05:35 PT/INR, D-dimer PT 16.2 Sec. (12.2-14.9) H 10/04/20 16:38 INR 1.30 (0.87-1.13) H 10/04/20 16:38 Abnormal lab findings: Abnormal Labs 10/04/20 10/04/20 10/04/20 16:38 16:38 16:38 WBC RBC 1.03 L Hgb 3.0 L* Hct 9.3 L* RDW 16.9 H Lymph % (Auto) 10.8 L Lymph # (Auto) 0.9 L Seg Neutrophils % 84.3 H Seg Neutrophils # PT 16.2 H INR 1.30 H Sodium 149 H Potassium 6.0 H Carbon Dioxide 18 L BUN > 112 H Creatinine 12.2 H Glucose POC Glucose Calcium 8.1 L CK-MB (CK-2) CK-MB (CK-2) Rel Index Troponin T 0.698 H* Total Protein Albumin HDL Cholesterol 37 L Free T4 Crossmatch 10/04/20 10/04/20 10/04/20 16:54 16:54 16:54 WBC RBC Hgb Hct RDW Lymph % (Auto) Lymph # (Auto) Seg Neutrophils % Seg Neutrophils # PT INR Sodium Potassium Carbon Dioxide BUN Creatinine Glucose POC Glucose Calcium CK-MB (CK-2) 4.7 H CK-MB (CK-2) Rel Index 5.1 H Troponin T Total Protein Albumin HDL Cholesterol Free T4 0.52 L Crossmatch See Detail 10/04/20 10/05/20 10/05/20 21:14 08:45 08:45 WBC 13.9 H RBC Hgb Hct RDW Lymph % (Auto) 7.7 L Lymph # (Auto) 1.1 L Seg Neutrophils % 85.3 H Seg Neutrophils # 11.9 H PT INR Sodium 146 H Potassium 5.6 H Carbon Dioxide BUN 81 H Creatinine 7.9 H Glucose 118 H POC Glucose 116 H Calcium CK-MB (CK-2) CK-MB (CK-2) Rel Index Troponin T Total Protein 5.7 L Albumin 3.1 L HDL Cholesterol Free T4 Crossmatch - Diagnostic Findings Chest x-ray: report reviewed (Reported no acute findings.), image reviewed Assessment and Plan 60 YO Male Senior Care Facility Resident at [facility] with ESRD on HD (T,R,Sa), DM, HLD, Debility, Seizure Disorder, GERD, Dementia presents to ED for evaluation. Patient is confused and lethargic at the time of my exam a nd is unable to provide history. Patient history provided by senior care facility staff, ED staff, and EMS. Pt was noticed by [facility] staff to have increased confusion and decreased interaction with staff. EMS notified, and upon arrival the patient was found to be in distress and was transported to [facility] for further care and evaluation. Pt seen and evaluated in ED. All lab and imaging studies reviewed. Patient was found to be Hemoccult positve with GI Bleeding with blood loss anemia with HGB of 3, metabolic encephalopathy, acidosis. Pt admitted to ICU for medical management and medical stabilization due to increased risk of decompensation. No reports of fever, chills, CP, Palpitations, productive cough, skin rash, trauma, syncope, vertigo, seizure activity, or recent ill contact, or known exposure to COVID-19. No further history obtainable. Patient is confused and lethargic the time of my evaluation but has a positive gag reflex and is able to protect his airway without difficulty. GI is consulted. Patient received blood transfusion. Patient sleeping at this time. even if you wake him up he is non communicative. Patient is on room air. o2 saturation. O2 saturation 93%. Chest xray reported no acute findings. Patient afebrile. No leukocytosis. - Patient Problems (1) Acute respiratory failure Current Visit: No Status: Acute Plan to address problem: Patient presently on room air. No respiratory distress. O2 saturation on room air 98%. (2) ESRD (end stage renal disease) on dialysis Current Visit: No Status: Acute Plan to address problem: Management as per nephrology. (3) Diabetes mellitus Current Visit: No Status: Chronic Qualifiers: Diabetes mellitus type: type 2 Plan to address problem: Management as per primary care. (4) GI bleed Current Visit: Yes Status: Acute Plan to address problem: Patient received blood transfusion. To days HGB 9.6. Management as per gastroenterology. (5) GERD (gastroesophageal reflux disease) Current Visit: No Status: Chronic Qualifiers: Esophagitis presence: without esophagitis Qualified Code(s): K21.9 - Gastro-esophageal reflux disease without esophagitis Plan to address problem: Patient is on protonix. (6) Hypertension Current Visit: No Status: Chronic Qualifiers: Hypertension type: essential hypertension Qualified Code(s): I10 - Essential (primary) hypertension Plan to address problem: Management as per primary care.
[2020-10-05] MEDS: amLODIPine 5 MG TAB PO SCH ×2 (13:02→13:14)
[2020-10-05] MEDS: carvediloL 6.25 MG TAB PO SCH ×3 (13:03→23:49)
[2020-10-05] MEDS ORDERED: hydrALAZINE 20 MG/1 ML INJ IV PRN (13:56)
--- NOTE | 2020-10-05 14:04 | Consultation ---
History of Present Illness - Reason for Consult Consult date: 10/05/20 end stage renal disease, hyperkalemia - History of Present Illness The patient is a 60 YO male with history significant for DM type 2, HTN, Anemia, ESRD on hemodialysis (TTS), GERD, Seizure disorder, Cognitive decline and Nu ing Home Resident who was sent to [facility] ED 10/04 with c/o increased confusion and decreased interaction with staff. Patient was confused at the time of my exam and is unable to provide history. In the ER pt was found to be Hemoccult positve and Hb of 3. Pt was admitted for further evaluation and treatment. Patient received 2 units of PRBC yesterday. Nephrology was consulted for treatment of ESRD. Past History Past Medical History: anemia, dialysis, ESRD, GERD, hypertension, seizures, other (See HPI) Past Surgical History: Other (Dialysis access) Social history: Family history: diabetes, hypertension Medications and Allergies Allergies Allergy/AdvReac Type Severity Reaction Status Date / Time Penicillins Allergy Unknown Verified 07/11/19 17:31 Home Medications Medication Instructions Recorded Confirmed Last Taken Type diphenhydrAMINE [Benadryl CAP] 25 mg PO Q6HR PRN 12/27/16 10/05/20 05/24/19 History Insulin Lispro [Humalog 100 See Protocol SQ AC 02/14/17 10/05/20 05/22/19 History UNITS/ML Kwikpen] Donepezil HCl 10 mg PO QHS 11/10/18 10/05/20 05/25/19 History Sevelamer Carbonate 2,400 mg PO TIDWM 11/10/18 10/05/20 05/25/19 History Epoetin Darvin 10,000 Unit [Procrit] 10,000 unit IJ PRN 07/11/19 10/05/20 Unknown History ALBUTEROL NEB's [Proventil 0.083% 2.5 mg IH Q4HRT PRN #30 nebu 11/07/19 10/05/20 Unknown Rx NEBS] Ascorbic Acid [Vitamin C] 500 mg PO BID #60 tablet 11/07/19 10/05/20 Unknown Rx AtorvaSTATin [Lipitor] 40 mg PO QHS #30 tablet 11/07/19 10/05/20 Unknown Rx Cinacalcet [Sensipar] 30 mg PO QDAY #30 tablet 11/07/19 10/05/20 Unknown Rx Ferrous Sulfate [Feosol 325 MG tab] 325 mg PO BID #60 tablet 11/07/19 10/05/20 Unknown Rx Folic Acid [Folvite] 1 mg PO DAILY #30 tablet 11/07/19 10/05/20 Unknown Rx Thiamine [Vitamin B-1] 100 mg PO DAILY #30 tablet 11/07/19 10/05/20 Unknown Rx bisacodyL [Dulcolax tab] 10 mg PO QDAY PRN #30 tablet 11/07/19 10/05/20 Unknown Rx levETIRAcetam [Keppra TAB] 250 mg PO BID #30 tablet 11/07/19 10/05/20 05/25/19 Rx Aspirin [Aspirin BABY CHEW TAB] 81 mg PO QDAY #30 tab.chew 09/17/20 10/05/20 Unknown Rx Insulin Glargine [Lantus VIAL] 10 units SUB-Q QHS units 09/17/20 10/05/20 Unkno wn Rx Insulin Lispro [Humalog] 0 unit SUB-Q ACHS vial 09/17/20 10/05/20 Unknown Rx Insulin Lispro [Humalog] 5 unit SUB-Q AC vial 09/17/20 10/05/20 Unknown Rx Pantoprazole [Protonix TAB] 40 mg PO BID #15 tablet 09/17/20 10/05/20 Unknown Rx amLODIPine 5 mg PO QDAY tablet 09/17/20 10/05/20 Unknown Rx Cinacalcet [Sensipar] 30 mg PO QDAY 10/05/20 10/05/20 Unknown History Divalproex ER [DepaKOTE ER] 250 mg PO DAILY 10/05/20 10/05/20 Unknown History Midodrine [Proamatine] 5 mg PO TID PRN 10/05/20 10/05/20 Unknown History Ondansetron HCl [Zofran] 4 mg PO PRN 10/05/20 10/05/20 Unknown History Sertraline [Zoloft] 50 mg PO QDAY 10/05/20 10/05/20 Unknown History carvediloL [Coreg] 6.25 mg PO BID 10/05/20 10/05/20 Unknown History polyethylene glycoL 3350 [Miralax 17 gm PO BID PRN 10/05/20 10/05/20 Unknown History 3350] traMADoL [Ultram] 50 mg PO Q8HR PRN 10/05/20 10/05/20 Unknown History Active Meds: Active Medications Albuterol (Albuterol 2.5 Mg/3 Ml Nebu) 2.5 mg IH Q3HRT PRN PRN Reason: Shortness Of Breath Amlodipine Besylate (Amlodipine 5 Mg Tab) 5 mg PO QDAY [facility] Last Admin: 10/05/20 13:14 Dose: Not Given Documented by: Carvedilol (Carvedilol 6.25 Mg Tab) 6.25 mg PO BID [facility] Last Admin: 10/05/20 13:08 Dose: Not Given Documented by: Clonidine HCl (Clonidine Tts 0.2 Mg/24 Hr Patch) 0.2 mg TD Sa [facility] Heparin Sodium (Porcine) (Heparin 10,000 Units/10 Ml Vial) 3,000 unit IV CORBY PRN PRN Reason: hemodialysis Hydralazine HCl (Hydralazine 20 Mg/1 Ml Inj) 5 mg IV Q30MIN PRN PRN Reason: Hypertension Pantoprazole Sodium 80 mg/ (Sodium Chloride) 100 mls @ 10 mls/hr IV DIRECT [facility] Last Admin: 10/05/20 05:57 Dose: 8 mg/hr, 10 mls/hr Documented by: Sodium Chloride (Nacl 0.9%) 100 mls @ 999 mls/hr IV CORBY PRN PRN Reason: Hypotension Sodium Chloride (Sodium Chloride 0.9% 10 Ml Flush Syringe) 10 ml IV BID [facility] Last Admin: 10/05/20 10:40 Dose: 10 ml Documented by: Sodium Chloride (Sodium Chloride 0.9% 10 Ml Flush Syringe) 10 ml IV PRN PRN PRN Reason: LINE FLUSH Review of Systems ROS unobtainable: due to mental status Exam - Vital Signs Vital signs: Vital Signs Temp Pulse Resp BP Pulse Ox 97.2 F L 98 H 20 103/59 90 10/04/20 20:59 10/04/20 20:59 10/04/20 20:59 10/04/20 20:59 10/04/20 20:59 Results - Lab Results 10/05/20 08:45 10/05/20 08:45 Most recent lab results Calcium 8.7 mg/dL (8.4-10.2) 10/05/20 08:45 Assessment and Plan 1. ESRD: Patient is on maintenance hemodialysis three times a week, TTS schedule. Likely pt missed few sessions of HD Hemodialysis: 10/04. 2. FEN: Metabolic acidosis, improved with HD. Hyperkalemia, HD today. Monitor. 3. Anemia: Hb was 3 on admission, likely spurious. S/p 2 units of PRBC. Repeat Hb 11.8. Epogen as needed. Monitor. 4. GI bleed: Heme positive stool. GI consulted. 5. Hyperparathyroidism: Cinacalcet. 6. PVD: S/p b/l LE amputation. 7. DM type 2. 8. Seizure disorder. Subjective: Patient seen and examined at the bedside. Examination: General appearance: well-developed, appears stated age HEENT: ATNC, PERRL Neck: trachea midline Respiratory: Clear to Auscultation Heart: regular, S1S2, no murmur Abdomen: soft, normoactive bowel sounds, not tender, not distended Integumentary: no obvious rash Neurologic: alert, confusion noted, oriented to self, moving extremities Ext: no edema, R AKA, L BKA Hemodialysis access: R FA AVF
[2020-10-05] MEDS ORDERED: traMADol 50 MG TAB PO PRN (14:47)
[2020-10-05] MEDS ORDERED: ALBUTEROL 2.5 MG/3 ML NEBU IH PRN (14:47)
--- NOTE | 2020-10-05 15:23 | Consultation ---
History of Present Illness - Reason for Consult Consult date: 10/05/20 GI bleed Requesting physician: BRADLY RODRIGUEZ - History of Present Illness Mr. Soto is a 60 yo BM, NHR, transferred to [facility] for altered mental status. He was found to be anemic with Hgb = 3, and ER rectal exam showed Heme + dark stool. GI consult requested. History obtained from chart and records as pt did not respond verbally. Pt was hospitalized in end 08/2020 and was seen by GI for anemia with dark Heme + stool and Hgb = 5.4 on 09/10. On 09/16/20, he underwent EGD/Colonoscopy with mild duodenitis, a small cecal AVM that was ablated with APC, and 2 small polyps and no valencia GI bleed. He was discharged with Hgb = 9.3 on 09/16. No reported abd pain, N/V, or GI distress from [facility]. Here, pt underwent dialysis, had 2 units pRBC given, and had a repeat Hgb = 11.8. Meds reviewed. Past History Past Medical History: ESRD, GERD, seizures, other (See HPI) Past Surgical History: Other (Dialysis access) Social history: Family history: diabetes, hypertension Medications and Allergies Allergies Allergy/AdvReac Type Severity Reaction Status Date / Time Penicillins Allergy Unknown Verified 07/11/19 17:31 Home Medications Medication Instructions Recorded Confirmed Last Taken Type diphenhydrAMINE [Benadryl CAP] 25 mg PO Q6HR PRN 12/27/16 10/05/20 05/24/19 History Insulin Lispro [Humalog 100 See Protocol SQ AC 02/14/17 10/05/20 05/22/19 History UNITS/ML Kwikpen] Donepezil HCl 10 mg PO QHS 11/10/18 10/05/20 05/25/19 History Sevelamer Carbonate 2,400 mg PO TIDWM 11/10/18 10/05/20 05/25/19 History Epoetin Darvin 10,000 Unit [Procrit] 10,000 unit IJ PRN 07/11/19 10/05/20 Unknown History ALBUTEROL NEB's [Proventil 0.083% 2.5 mg IH Q4HRT PRN #30 nebu 11/07/19 10/05/20 Unknown Rx NEBS] Ascorbic Acid [Vitamin C] 500 mg PO BID #60 tablet 11/07/19 10/05/20 Unknown Rx AtorvaSTATin [Lipitor] 40 mg PO QHS #30 tablet 11/07/19 10/05/20 Unknown Rx Cinacalcet [Sensipar] 30 mg PO QDAY #30 tablet 11/07/19 10/05/20 Unknown Rx Ferrous Sulfate [Feosol 325 MG tab] 325 mg PO BID #60 tablet 11/07/19 10/05/20 Unknown Rx Folic Acid [Folvite] 1 mg PO DAILY #30 tablet 11/07/19 10/05/20 Unknown Rx Thiamine [Vitamin B-1] 100 mg PO DAILY #30 tablet 11/07/19 10/05/20 Unknown Rx bisacodyL [Dulcolax tab] 10 mg PO QDAY PRN #30 tablet 11/07/19 10/05/20 Unknown Rx levETIRAcetam [Keppra TAB] 250 mg PO BID #30 tablet 11/07/19 10/05/20 05/25/19 Rx Aspirin [Aspirin BABY CHEW TAB] 81 mg PO QDAY #30 tab.chew 09/17/20 10/05/20 Unknown Rx Insulin Glargine [Lantus VIAL] 10 units SUB-Q QHS units 09/17/20 10/05/20 Unknown Rx Insulin Lispro [Humalog] 0 unit SUB-Q ACHS vial 09/17/20 10/05/20 Unknown Rx Insulin Lispro [Humalog] 5 unit SUB-Q AC vial 09/17/20 10/05/20 Unknown Rx Pantoprazole [Protonix TAB] 40 mg PO BID #15 tablet 09/17/20 10/05/20 Unknown Rx amLODIPine 5 mg PO QDAY tablet 09/17/20 10/05/20 Unknown Rx Cinacalcet [Sensipar] 30 mg PO QDAY 10/05/20 10/05/20 Unknown History Divalproex ER [DepaKOTE ER] 250 mg PO DAILY 10/05/20 10/05/20 Unknown History Midodrine [Proamatine] 5 mg PO TID PRN 10/05/20 10/05/20 Unknown History Ondansetron HCl [Zofran] 4 mg PO PRN 10/05/20 10/05/20 Unknown History Sertraline [Zoloft] 50 mg PO QDAY 10/05/20 10/05/20 Unknown History carvediloL [Coreg] 6.25 mg PO BID 10/05/20 10/05/20 Unknown History polyethylene glycoL 3350 [Miralax 17 gm PO BID PRN 10/05/20 10/05/20 Unknown History 3350] traMADoL [Ultram] 50 mg PO Q8HR PRN 10/05/20 10/05/20 Unknown History Active Meds: Active Medications Albuterol (Albuterol 2.5 Mg/3 Ml Nebu) 2.5 mg IH Q3HRT PRN PRN Reason: Shortness Of Breath Amlodipine Besylate (Amlodipine 5 Mg Tab) 5 mg PO QDAY [facility] Last Admin: 10/05/20 13:14 Dose: Not Given Documented by: Ascorbic Acid (Ascorbic Acid 500 Mg Tab) 500 mg PO BID [facility] Aspirin (Aspirin 81 Mg Tab Chew) 81 mg PO QDAY [facility] Atorvastatin Calcium (Atorvastatin 40 Mg Tab) 40 mg PO QHS [facility] Bisacodyl (Bisacodyl 5 Mg Tab) 10 mg PO QDAY PRN PRN Reason: Constipation Carvedilol (Carvedilol 6.25 Mg Tab) 6.25 mg PO BID [facility] Last Admin: 10/05/20 13:08 Dose: Not Given Documented by: Cinacalcet (Cinacalcet 30 Mg Tab) 30 mg PO QDAY [facility] Clonidine HCl (Clonidine Tts 0.2 Mg/24 Hr Patch) 0.2 mg TD Sa [facility] Dexamethasone (Dexamethasone 2 Mg Tab) 6 mg PO Q24H [facility] Divalproex Sodium (Divalproex Er 250 Mg Tab) 250 mg PO DAILY [facility] Donepezil HCl (Donepezil 10 Mg Tab) 10 mg PO QHS [facility] Ferrous Sulfate (Ferrous Sulfate 325 Mg Tab) 325 mg PO BID [facility] Folic Acid (Folic Acid 1 Mg Tab) 1 mg PO DAILY [facility] Heparin Sodium (Porcine) (Heparin 10,000 Units/10 Ml Vial) 3,000 unit IV CORBY PRN PRN Reason: hemodialysis Hydralazine HCl (Hydralazine 20 Mg/1 Ml Inj) 5 mg IV Q30MIN PRN PRN Reason: Hypertension Pantoprazole Sodium 80 mg/ (Sodium Chloride) 100 mls @ 10 mls/hr IV DIRECT [facility] Last Admin: 10/05/20 05:57 Dose: 8 mg/hr, 10 mls/hr Documented by: Sodium Chloride (Nacl 0.9%) 100 mls @ 999 mls/hr IV CORBY PRN PRN Reason: Hypotension Insulin Human Lispro (Insulin Lispro 100 Unit/Ml) 0 unit SUB-Q ACHS [facility]; Protocol Insulin Human Lispro (Insulin Lispro 100 Unit/Ml) 5 unit SUB-Q AC [facility] Levetiracetam (Levetiracetam 500 Mg Tab) 250 mg PO BID [facility] Sertraline HCl (Sertraline 50 Mg Tab) 50 mg PO QDAY [facility] Sevelamer Carbonate (Sevelamer Carbonate 800 Mg Tab) 2,400 mg PO TIDWM [facility] Sodium Chloride (Sodium Chloride 0.9% 10 Ml Flush Syringe) 10 ml IV BID [facility] Last Admin: 10/05/20 10:40 Dose: 10 ml Documented by: Sodium Chloride (Sodium Chloride 0.9% 10 Ml Flush Syringe) 10 ml IV PRN PRN PRN Reason: LINE FLUSH Thiamine HCl (Thiamine 100 Mg Tab) 100 mg PO DAILY [facility] Tramadol HCl (Tramadol 50 Mg Tab) 50 mg PO Q8H PRN PRN Reason: PAIN, Moderate Review of Systems ROS unobtainable: due to mental status Exam - Constitutional Vitals: Temp Pulse Resp BP Pulse Ox 98.4 F 101 H 22 188/81 99 10/05/20 12:18 10/05/20 12:18 10/05/20 12:18 10/05/20 13:08 10/05/20 12:18 General appearance: Present: no acute distress, other (Not responding because it seems he is willfully trying to turn away and sleep.) - Neck Neck: Present: supple - Respiratory Respiratory effort: normal - Cardiovascular Rhythm: regular Heart Sounds: Present: S1 & S2 - Extremities Extremities: No edema - Abdominal General gastrointestinal: Present: soft, non-tender Results - Labs CBC & Chem 7: 10/05/20 08:45 10/05/20 08:45 Labs: Abnormal lab results 10/04/20 10/04/20 10/04/20 Range/Units 16:38 16:38 16:38 WBC (4.5-11.0) K/mm3 RBC 1.03 L (3.65-5.03) M/mm3 Hgb 3.0 L* (11.8-15.2) gm/dl Hct 9.3 L* (35.5-45.6) % RDW 16.9 H (13.2-15.2) % Lymph % (Auto) 10.8 L (13.4-35.0) % Lymph # (Auto) 0.9 L (1.2-5.4) K/mm3 Seg Neutrophils % 84.3 H (40.0-70.0) % Seg Neutrophils # (1.8-7.7) K/mm3 PT 16.2 H (12.2-14.9) Sec. INR 1.30 H (0.87-1.13) Sodium 149 H (137-145) mmol/L Potassium 6.0 H (3.6-5.0) mmol/L Carbon Dioxide 18 L (22-30) mmol/L BUN > 112 H (9-20) mg/dL Creatinine 12.2 H (0.8-1.3) mg/dL Glucose (75-100) mg/dL POC Glucose (70-105) mg/dL Calcium 8.1 L (8.4-10.2) mg/dL CK-MB (CK-2) (0.0-4.0) ng/mL CK-MB (CK-2) Rel Index (0-4) Troponin T 0.698 H* (0.00-0.029) ng/mL Total Protein (6.3-8.2) g/dL Albumin (3.9-5) g/dL HDL Cholesterol 37 L (40-59) mg/dL Free T4 (0.76-1.46) ng/dL Coronavirus (PCR) (Negative) Crossmatch 10/04/20 10/04/20 10/04/20 Range/Units 16:54 16:54 16:54 WBC (4.5-11.0) K/mm3 RBC (3.65-5.03) M/mm3 Hgb (11.8-15.2) gm/dl Hct (35.5-45.6) % RDW (13.2-15.2) % Lymph % (Auto) (13.4-35.0) % Lymph # (Auto) (1.2-5.4) K/mm3 Seg Neutrophils % (40.0-70.0) % Seg Neutrophils # (1.8-7.7) K/mm3 PT (12.2-14.9) Sec. INR (0.87-1.13) Sodium (137-145) mmol/L Potassium (3.6-5.0) mmol/L Carbon Dioxide (22-30) mmol/L BUN (9-20) mg/dL Creatinine (0.8-1.3) mg/dL Glucose (75-100) mg/dL POC Glucose (70-105) mg/dL Calcium (8.4-10.2) mg/dL CK-MB (CK-2) 4.7 H (0.0-4.0) ng/mL CK-MB (CK-2) Rel Index 5.1 H (0-4) Troponin T (0.00-0.029) ng/mL Total Protein (6.3-8.2) g/dL Albumin (3.9-5) g/dL HDL Cholesterol (40-59) mg/dL Free T4 0.52 L (0.76-1.46) ng/dL Coronavirus (PCR) (Negative) Crossmatch See Detail 10/04/20 10/05/20 10/05/20 Range/Units 21:14 08:45 08:45 WBC 13.9 H (4.5-11.0) K/mm3 RBC (3.65-5.03) M/mm3 Hgb (11.8-15.2) gm/dl Hct (35.5-45.6) % RDW (13.2-15.2) % Lymph % (Auto) 7.7 L (13.4-35.0) % Lymph # (Auto) 1.1 L (1.2-5.4) K/mm3 Seg Neutrophils % 85.3 H (40.0-70.0) % Seg Neutrophils # 11.9 H (1.8-7.7) K/mm3 PT (12.2-14.9) Sec. INR (0.87-1.13) Sodium 146 H (137-145) mmol/L Potassium 5.6 H (3.6-5.0) mmol/L Carbon Dioxide (22-30) mmol/L BUN 81 H (9-20) mg/dL Creatinine 7.9 H (0.8-1.3) mg/dL Glucose 118 H (75-100) mg/dL POC Glucose 116 H (70-105) mg/dL Calcium (8.4-10.2) mg/dL CK-MB (CK-2) (0.0-4.0) ng/mL CK-MB (CK-2) Rel Index (0-4) Troponin T (0.00-0.029) ng/mL Total Protein 5.7 L (6.3-8.2) g/dL Albumin 3.1 L (3.9-5) g/dL HDL Cholesterol (40-59) mg/dL Free T4 (0.76-1.46) ng/dL Coronavirus (PCR) (Negative) Crossmatch 10/05/20 Range/Units Unknown WBC (4.5-11.0) K/mm3 RBC (3.65-5.03) M/mm3 Hgb (11.8-15.2) gm/dl Hct (35.5-45.6) % RDW (13.2-15.2) % Lymph % (Auto) (13.4-35.0) % Lymph # (Auto) (1.2-5.4) K/mm3 Seg Neutrophils % (40.0-70.0) % Seg Neutrophils # (1.8-7.7) K/mm3 PT (12.2-14.9) Sec. INR (0.87-1.13) Sodium (137-145) mmol/L Potassium (3.6-5.0) mmol/L Carbon Dioxide (22-30) mmol/L BUN (9-20) mg/dL Creatinine (0.8-1.3) mg/dL Glucose (75-100) mg/dL POC Glucose (70-105) mg/dL Calcium (8.4-10.2) mg/dL CK-MB (CK-2) (0.0-4.0) ng/mL CK-MB (CK-2) Rel Index (0-4) Troponin T (0.00-0.029) ng/mL Total Protein (6.3-8.2) g/dL Albumin (3.9-5) g/dL HDL Cholesterol (40-59) mg/dL Free T4 (0.76-1.46) ng/dL Coronavirus (PCR) Positive A (Negative) Crossmatch Assessment and Plan 1. GI bleed - pt has Heme + stool. However, initial anemia with Hgb = 3 was likely spurious given increase to 11.8 after 2 units pRBC, which would be a response c/w hgb 9.3 as at discharge on 09/16/20. No evidence of significant GI bleed. - monitor H/H - empiric qd PPI - can consider outpatient Pillcam, given recent EGD/Colonoscopy Will sign off. Thanks.
[2020-10-05] MEDS ORDERED: DEXAMETHASONE 2 MG TAB PO SCH (16:00)
[2020-10-05] MEDS ORDERED: cloNIDine TTS 0.2 MG/24 HR PATCH TD SCH (16:00)
[2020-10-05] MEDS: ASPIRIN 81 MG TAB CHEW PO SCH (16:15)
[2020-10-05] MEDS: SEVELAMER CARBONATE 800 MG TAB PO SCH (17:37)
[2020-10-05] MEDS: INSULIN LISPRO 100 UNIT/ML SUB-Q SCH ×3 (17:46→23:50)
[2020-10-05] MEDS: levETIRAcetam 500 MG TAB PO SCH (23:48)
[2020-10-05] MEDS: FERROUS SULFATE 325 MG TAB PO SCH (23:48)
[2020-10-05] MEDS: DONEPEZIL 10 MG TAB PO SCH (23:48)
[2020-10-05] MEDS: ASCORBIC ACID 500 MG TAB PO SCH (23:49)
[2020-10-06] MEDS: PANTOPRAZOLE 80 MG in SODIUM CHLORIDE 0.9% 100 ML IV SCH (00:41)
[2020-10-06 06:08] LABS: Basophils % (Auto) 0.1 % (0.0-1.8); Hematocrit 28.8 % (35.5-45.6); Hemoglobin 9.6 gm/dl (11.8-15.2); Lymphocytes # (Auto) 0.6 K/mm3 (1.2-5.4); Lymphocytes % (Auto) 5.8 % (13.4-35.0); Mean Corpuscular HGB Conc 34 % (32-34); Mean Corpuscular Volume 89 fl (84-94); Monocytes # (Auto) 0.6 K/mm3 (0.0-0.8); Monocytes % (Auto) 5.4 % (0.0-7.3); Platelet Count 238 K/mm3 (140-440); Red Blood Count 3.22 M/mm3 (3.65-5.03); Red Cell Distribution Width 15.1 % (13.2-15.2)
[2020-10-06 06:27] LABS: Calcium 9.3 mg/dL (8.4-10.2)
[2020-10-06] MEDS: INSULIN LISPRO 100 UNIT/ML SUB-Q SCH ×7 (08:47→22:16)
[2020-10-06] MEDS: SEVELAMER CARBONATE 800 MG TAB PO SCH ×3 (08:47→17:50)
--- NOTE | 2020-10-06 11:40 | Progress Note ---
Assessment and Plan --Positive for COVID-19 placed on COVID-19 protocol Patient does not appear to be hypoxic he has been positive since 09/02/20 We will continue to follow inflammatory markers Not a candidate for remdesivir, will consult ID for further recommendation --Acute GI bleed Hemoglobin was 3.0 on admission, continue PPI therapy Patient received total 4 units of packed RBC GI consulted, and recommended outpatient pill camera study Continue to follow H&H --SEvere anemia due to blood loss Continue to monitor H&H, status post 4 units of packed RBC transfusion Monitor for active bleed, GI consulted --Acute metabolic encephalopathy CT head without any acute process patient has underlying dementia Continue to monitor with neuro check, seizure precautions, aspiration precautions, supportive care. -- Hyperkalemia, resolved Due to end-stage renal disease Kayexalate as needed for potassium greater than 5.2 Supportive care, dialysis as per renal team. Monitor BMP --Hypertension, accelerated Resume home meds and adjust medications as needed IV hydralazine to keep SBP less than 160 -- End stage renal disease Nephrology team consulted in ED, avoid nephrotoxic agents, dialysis as per renal team. Monitor BMP --Seizure disorder, cont AED --Peripheral vascular disease, status post bilateral lower extremity amputation Continue supportive care --DVT prophylaxis hold anticoagulation for now due to GI bleed. --Dull code status Brief history: The patient is a 60 YO male with history significant for DM type 2, HTN, Anemia, ESRD on hemodialysis (TTS), GERD, Seizure disorder, Cognitive decline and [facility] Resident who was sent to [facility] ED 10/04 with c/o increased confusion and decreased interaction with staff. In the ER pt was found to be Hemoccult positve and Hb of 3. Pt was admitted to ICU for further evaluation and treatment. Patient received total 4 units of PRBC. Nephrology was consulted for treatment of ESRD. GI consulted for the evaluation of GI bleed and severe anemia. Daily course: 10/05/20: Mental status much improved, patient is very cooperative today. H/H stable, s/p transfusion of 4 units of PRBC. K level improved. follow BMP. planned for Hd today. transfer to [facility] with remote tele, patient tested positive for Covid, continue to follow inflammatory markers and consult ID. 10/06: Hemoglobin slightly dropped today, will continue to monitor. GI recommended no intervention as patient's H&H is stable without any active bleeding and also patient had a recent EGD and colonoscopy. Need outpatient pill camera endoscopy. Patient maintaining oxygenation in room air. Continue Covid protocol. Wait for ID recommendation, he has been tested positive for Covid since 09/02/20. Will follow inflammatory markers. If H&H remains stable and cleared by ID [facility]. Subjective Date of service: 10/06/20 Interval history: Patient seen and examined. Medical records and medication list reviewed. No acute event overnight noted by the RN. Patient is tolerating diet. Clinically no change Hemoglobin slightly dropped today but no active bleeding Discussed plan of care at bedside with RN. Objective - Exam Narrative Exam: Limited physical exam due to COVID-19 pandemic to minimize transmission of the disease. Vital reviewed and stable. GENERAL: well-developed well-nourished elderly male lying on bed appeared to be in no discomfort. HEENT: Normocephalic. Atraumatic. NECK: Supple. CHEST/LUNGS: breathing nonlabored. HEART/CARDIOVASCULAR: Heart rate stable on telemetry ABDOMEN: Visibly not distended SKIN: There is no rash NEURO: No focal motor deficit. Follows minor command. MUSCULOSKELETAL: No joint effusion EXTRIMITY: No swelling, no cyanosis or clubbing. PSYCH: Cooperative. EXTRIMITY: No edema, R AKA, L BKA - Labs CBC & Chem 7: 10/06/20 05:35 10/06/20 05:35 Labs: Abnormal lab results 10/05/20 10/05/20 10/05/20 Range/Units 17:24 21:59 Unknown RBC (3.65-5.03) M/mm3 Hgb (11.8-15.2) gm/dl Hct (35.5-45.6) % Lymph % (Auto) (13.4-35.0) % Lymph # (Auto) (1.2-5.4) K/mm3 Seg Neutrophils % (40.0-70.0) % Seg Neutrophils # (1.8-7.7) K/mm3 BUN (9-20) mg/dL Creatinine (0.8-1.3) mg/dL Glucose (75-100) mg/dL POC Glucose 133 H 175 H (70-105) mg/dL Coronavirus (PCR) Positive A (Negative) 10/06/20 10/06/20 10/06/20 Range/Units 05:35 05:35 07:38 RBC 3.22 L (3.65-5.03) M/mm3 Hgb 9.6 L (11.8-15.2) gm/dl Hct 28.8 L D (35.5-45.6) % Lymph % (Auto) 5.8 L (13.4-35.0) % Lymph # (Auto) 0.6 L (1.2-5.4) K/mm3 Seg Neutrophils % 88.7 H (40.0-70.0) % Seg Neutrophils # 9.7 H (1.8-7.7) K/mm3 BUN 39 H (9-20) mg/dL Creatinine 5.4 H (0.8-1.3) mg/dL Glucose 175 H (75-100) mg/dL POC Glucose 146 H (70-105) mg/dL Coronavirus (PCR) (Negative) HEART Score - HEART Score Troponin: Troponin T 0.698 ng/mL (0.00-0.029) H* 10/04/20 16:38
[2020-10-06] MEDS: ASPIRIN 81 MG TAB CHEW PO SCH (11:46)
[2020-10-06] MEDS: levETIRAcetam 500 MG TAB PO SCH ×2 (11:46→21:43)
[2020-10-06] MEDS: THIAMINE 100 MG TAB PO SCH (11:47)
[2020-10-06] MEDS: FOLIC ACID 1 MG TAB PO SCH (11:47)
[2020-10-06] MEDS: ASCORBIC ACID 500 MG TAB PO SCH ×2 (11:47→21:43)
[2020-10-06] MEDS: CINACALCET 30 MG TAB PO SCH (11:47)
[2020-10-06] MEDS: SERTRALINE 50 MG TAB PO SCH (11:48)
[2020-10-06] MEDS: FERROUS SULFATE 325 MG TAB PO SCH ×2 (11:48→21:42)
[2020-10-06] MEDS: DIVALPROEX ER 250 MG TAB PO SCH (11:50)
--- NOTE | 2020-10-06 12:10 | XRay Report ---
XR chest 1V ap INDICATION / CLINICAL INFORMATION: covid +. COMPARISON: 09/04/2020 FINDINGS: SUPPORT DEVICES: None. HEART /PULMONARY VASCULATURE: No significant abnormality. LUNGS / PLEURA: No significant pulmonary or pleural abnormality. No pneumothorax. ADDITIONAL FINDINGS: No significant additional findings. IMPRESSION: 1. No acute findings. Signer Name: Vish Bergman MD Signed: 10/06/2020 12:06 PM Workstation Name: [id number]
[2020-10-06] MEDS: amLODIPine 5 MG TAB PO SCH (13:25)
[2020-10-06] MEDS: carvediloL 6.25 MG TAB PO SCH ×2 (13:25→21:42)
--- NOTE | 2020-10-06 13:48 | Progress Note ---
Assessment and Plan 1. ESRD: Patient is on maintenance hemodialysis three times a week, TTS schedule. Likely pt missed few sessions of HD Hemodialysis: 10/04, 10/05. 2. FEN: Metabolic acidosis, improved with HD. Hyperkalemia, improved. Monitor. 3. Anemia: Hb was 3 on admission, likely spurious. S/p 2 units of PRBC. Repeat Hb was 11.8, now 9.6. Epogen as needed. Monitor. 4. GI bleed: Heme positive stool. Seen by GI. 5. Hyperparathyroidism: Cinacalcet. 6. PVD: S/p b/l LE amputation. 7. DM type 2. 8. Seizure disorder. 9. Hypertension: Adjust meds as needed. Subjective: Patient seen and examined at the bedside. Examination: General appearance: well-developed, appears stated age HEENT: ATNC, PERRL Neck: trachea midline Respiratory: Clear to Auscultation Heart: regular, S1S2, no murmur Abdomen: soft, normoactive bowel sounds, not tender, not distended Integumentary: no obvious rash Neurologic: sleeping, opens eyes Ext: no edema, R AKA, L BKA Hemodialysis access: R FA AVF Subjective Date of service: 10/06/20 Objective - Vital Signs Vital signs: Vital Signs - 12hr 10/06/20 10/06/20 12:32 13:25 Temperature 98.3 F Pulse Rate 84 84 Respiratory 8 L Rate Blood Pressure 198/88 198/88 O2 Sat by Pulse 98 Oximetry - Lab 10/06/20 05:35 10/06/20 05:35 Most recent lab results Calcium 9.3 mg/dL (8.4-10.2) 10/06/20 05:35 Medications & Allergies - Medications Allergies/Adverse Reactions: Allergies Penicillins Allergy (Verified 07/11/19 17:31) Unknown Home Medications: Home Medications Medication Instructions Recorded Confirmed Last Taken Type diphenhydrAMINE [Benadryl CAP] 25 mg PO Q6HR PRN 12/27/16 10/05/20 05/24/19 History Insulin Lispro [Humalog 100 See Protocol SQ AC 02/14/17 10/05/20 05/22/19 History UNITS/ML Kwikpen] Donepezil HCl 10 mg PO QHS 11/10/18 10/05/20 05/25/19 History Sevelamer Carbonate 2,400 mg PO TIDWM 11/10/18 10/05/20 05/25/19 History Epoetin Darvin 10,000 Unit [Procrit] 10,000 unit IJ PRN 07/11/19 10/05/20 Unknown History ALBUTEROL NEB's [Proventil 0.083% 2.5 mg IH Q4HRT PRN #30 nebu 11/07/19 10/05/20 Unknown Rx NEBS] Ascorbic Acid [Vitamin C] 500 mg PO BID #60 tablet 11/07/19 10/05/20 Unknown Rx AtorvaSTATin [Lipitor] 40 mg PO QHS #30 tablet 11/07/19 10/05/20 Unknown Rx Cinacalcet [Sensipar] 30 mg PO QDAY #30 tablet 11/07/19 10/05/20 Unknown Rx Ferrous Sulfate [Feosol 325 MG tab] 325 mg PO BID #60 tablet 11/07/19 10/05/20 Unknown Rx Folic Acid [Folvite] 1 mg PO DAILY #30 tablet 11/07/19 10/05/20 Unknown Rx Thiamine [Vitamin B-1] 100 mg PO DAILY #30 tablet 11/07/19 10/05/20 Unknown Rx bisacodyL [Dulcolax tab] 10 mg PO QDAY PRN #30 tablet 11/07/19 10/05/20 Unknown Rx levETIRAcetam [Keppra TAB] 250 mg PO BID #30 tablet 11/07/19 10/05/20 05/25/19 Rx Aspirin [Aspirin BABY CHEW TAB] 81 mg PO QDAY #30 tab.chew 09/17/20 10/05/20 Unknown Rx Insulin Glargine [Lantus VIAL] 10 units SUB-Q QHS units 09/17/20 10/05/20 Unknown Rx Insulin Lispro [Humalog] 0 unit SUB-Q ACHS vial 09/17/20 10/05/20 Unknown Rx Insulin Lispro [Humalog] 5 unit SUB-Q AC vial 09/17/20 10/05/20 Unknown Rx Pantoprazole [Protonix TAB] 40 mg PO BID #15 tablet 09/17/20 10/05/20 Unknown Rx amLODIPine 5 mg PO QDAY tablet 09/17/20 10/05/20 Unknown Rx Cinacalcet [Sensipar] 30 mg PO QDAY 10/05/20 10/05/20 Unknown History Divalproex ER [DepaKOTE ER] 250 mg PO DAILY 10/05/20 10/05/20 Unknown History Midodrine [Proamatine] 5 mg PO TID PRN 10/05/20 10/05/20 Unknown History Ondansetron HCl [Zofran] 4 mg PO PRN 10/05/20 10/05/20 Unknown History Sertraline [Zoloft] 50 mg PO QDAY 10/05/20 10/05/20 Unknown History carvediloL [Coreg] 6.25 mg PO BID 10/05/20 10/05/20 Unknown History polyethylene glycoL 3350 [Miralax 17 gm PO BID PRN 10/05/20 10/05/20 Unknown History 3350] traMADoL [Ultram] 50 mg PO Q8HR PRN 10/05/20 10/05/20 Unknown History Active Medications: Generic Name Dose Route Start Last Admin Trade Name Freq PRN Reason Stop Dose Admin Albuterol 2.5 mg 10/04/20 19:33 Albuterol 2.5 Mg/3 Ml Nebu IH Q3HRT PRN Shortness Of Breath Amlodipine Besylate 5 mg 10/05/20 14:00 10/06/20 13:25 Amlodipine 5 Mg Tab PO 5 mg QDAY LUZ Administration Ascorbic Acid 500 mg 10/05/20 22:00 10/06/20 11:47 Ascorbic Acid 500 Mg Tab PO 500 mg BID LUZ Administration Aspirin 81 mg 10/05/20 15:00 10/06/20 11:46 Aspirin 81 Mg Tab Chew PO 81 mg QDAY LUZ Administration Atorvastatin Calcium 40 mg 10/05/20 22:00 10/05/20 23:48 Atorvastatin 40 Mg Tab PO 40 mg QHS LUZ Administration Bisacodyl 10 mg 10/05/20 14:47 Bisacodyl 5 Mg Tab PO QDAY PRN Constipation Carvedilol 6.25 mg 10/05/20 13:00 10/06/20 13:25 Carvedilol 6.25 Mg Tab PO 6.25 mg BID LUZ Administration Cinacalcet 30 mg 10/06/20 10:00 10/06/20 11:47 Cinacalcet 30 Mg Tab PO 30 mg QDAY LUZ Administration Clonidine HCl 0.2 mg 10/05/20 16:00 10/05/20 16:03 Clonidine Tts 0.2 Mg/24 Hr Patch TD 0.2 mg Sa LUZ Administration Divalproex Sodium 250 mg 10/06/20 10:00 10/06/20 11:50 Divalproex Er 250 Mg Tab PO 250 mg DAILY LUZ Administration Donepezil HCl 10 mg 10/05/20 22:00 10/05/20 23:48 Donepezil 10 Mg Tab PO 10 mg QHS LUZ Administration Ferrous Sulfate 325 mg 10/05/20 22:00 10/06/20 11:48 Ferrous Sulfate 325 Mg Tab PO 325 mg BID LUZ Administration Folic Acid 1 mg 10/06/20 10:00 10/06/20 11:47 Folic Acid 1 Mg Tab PO 1 mg DAILY LZU Administration Heparin Sodium (Porcine) 3,000 unit 10/05/20 11:41 Heparin 10,000 Units/10 Ml Vial IV CORBY PRN hemodialysis Hydralazine HCl 5 mg 10/05/20 13:56 Hydralazine 20 Mg/1 Ml Inj IV Q30MIN PRN Hypertension Sodium Chloride 100 mls @ 999 mls/hr 10/04/20 20:03 Nacl 0.9% IV CORBY PRN Hypotension Insulin Human Lispro 0 unit 10/05/20 16:30 10/06/20 13:27 Insulin Lispro 100 Unit/Ml SUB-Q 1 unit ACHS LUZ Administration Protocol Insulin Human Lispro 5 unit 10/05/20 16:30 10/06/20 13:28 Insulin Lispro 100 Unit/Ml SUB-Q 5 unit AC LUZ Administration Levetiracetam 250 mg 10/05/20 22:00 10/06/20 11:46 Levetiracetam 500 Mg Tab PO 250 mg BID LUZ Administration Pantoprazole Sodium 40 mg 10/07/20 07:30 Pantoprazole 40 Mg Tab PO QDAC LUZ Sertraline HCl 50 mg 10/06/20 10:00 10/06/20 11:48 Sertraline 50 Mg Tab PO 50 mg QDAY LUZ Administration Sevelamer Carbonate 2,400 mg 10/05/20 17:00 10/06/20 11:45 Sevelamer Carbonate 800 Mg Tab PO 2,400 mg TIDWM LUZ Administration Sodium Chloride 10 ml 10/04/20 22:00 10/06/20 11:48 Sodium Chloride 0.9% 10 Ml Flush Syringe IV 10 ml BID LUZ Administration Sodium Chloride 10 ml 10/04/20 19:33 Sodium Chloride 0.9% 10 Ml Flush Syringe IV PRN PRN LINE FLUSH Thiamine HCl 100 mg 10/06/20 10:00 10/06/20 11:47 Thiamine 100 Mg Tab PO 100 mg DAILY LUZ Administration Tramadol HCl 50 mg 10/05/20 14:47 Tramadol 50 Mg Tab PO Q8H PRN PAIN, Moderate
--- NOTE | 2020-10-06 17:46 | Progress Note ---
Assessment and Plan 60 YO Male Nursing Home Facility Resident at [facility] with ESRD on HD (T,R,Sa), DM, HLD, Debility, Seizure Disorder, GERD, Dementia presents to ED for evaluation. Patient is confused and lethargic at the time of my exam and is unable to provide history. Patient history provided by retirement facility staff, ED staff, and EMS. Pt was noticed by [facility] staff to have increased confusion and decreased interaction with staff. EMS notified, and upon arrival the patient was found to be in distress and was transported to [facility] for further care and evaluation. Pt seen and evaluated in ED. All lab and imaging studies reviewed. Patient was found to be Hemoccult positve with GI Bleeding with blood loss anemia with HGB of 3, metabolic encephalopathy, acidosis. Pt admitted to ICU for medical management and medical stabilization due to increased risk of decompensation. No reports of fever, chills, CP, Palpitations, productive cough, skin rash, trauma, syncope, vertigo, seizure activity, or recent ill contact, or known exposure to COVID-19. No further history obtainable. Patient is confused and lethargic the time of my evaluation but has a positive gag reflex and is able to protect his airway without difficulty. GI is consulted. Patient received blood transfusion. Patient sleeping at this time. even if you wake him up he is non communicative. Patient is on room air. o2 saturation. O2 saturation 93%. Chest xray reported no acute findings. Patient afebrile. No leukocytosis. 10/06/20 Patient is on room air. O2 saturation 98%. No acute respiratory distress. Patient sleeping. Even if you wake him up, He is not communicative. Patient afebrile. No leukocytosis. Chest xray obtained 10/06/20 reported no acute findings. - Patient Problems (1) Acute respiratory failure Current Visit: No Status: Acute Plan to address problem: Patient presently on room air. No respiratory distress. O2 saturation on room air 98%. (2) ESRD (end stage renal disease) on dialysis Current Visit: No Status: Acute Plan to address problem: Management as per nephrology. (3) Diabetes mellitus Current Visit: No Status: Chronic Qualifiers: Diabetes mellitus type: type 2 Plan to address problem: Management as per primary care. (4) GI bleed Current Visit: Yes Status: Acute Plan to address problem: Patient received blood transfusion. To days HGB 9.6. Management as per gastroenterology. (5) GERD (gastroesophageal reflux disease) Current Visit: No Status: Chronic Qualifiers: Esophagitis presence: without esophagitis Qualified Code(s): K21.9 - Gastro-esophageal reflux disease without esophagitis Plan to address problem: Patient is on protonix. (6) Hypertension Current Visit: No Status: Chronic Qualifiers: Hypertension type: essential hypertension Qualified Code(s): I10 - Essential (primary) hypertension Plan to address problem: Management as per primary care. Subjective Date of service: 10/06/20 Interval history: Patient is on room air. O2 saturation 98%. No acute respiratory distress. Patient sleeping. Even if you wake him up, He is not communicative. Patient afebrile. No leukocytosis. Chest xray obtained 10/06/20 reported no acute findings. Objective Vital Signs - 12hr 10/06/20 10/06/20 12:32 13:25 Temperature 98.3 F Pulse Rate 84 84 Respiratory 8 L Rate Blood Pressure 198/88 198/88 O2 Sat by Pulse 98 Oximetry Constitutional: no acute distress, asleep Eyes: non-icteric Neck: supple Effort: mildly labored Ascultation: Bilateral: diminished breath sounds Integumentary: normal Extremities: no cyanosis, no edema Neurologic: other (Unable to assess. Patient sleeping.) Psychiatric: other (Unable to assess . Patient sleeping.) CBC and BMP: 10/06/20 05:35 10/06/20 05:35 ABG, PT/INR, D-dimer: PT/INR, D-dimer PT 16.2 Sec. (12.2-14.9) H 10/04/20 16:38 INR 1.30 (0.87-1.13) H 10/04/20 16:38 Abnormal lab findings: Abnormal Labs 10/04/20 10/04/20 10/04/20 16:38 16:38 16:38 WBC RBC 1.03 L Hgb 3.0 L* Hct 9.3 L* RDW 16.9 H Lymph % (Auto) 10.8 L Lymph # (Auto) 0.9 L Seg Neutrophils % 84.3 H Seg Neutrophils # PT 16.2 H INR 1.30 H Sodium 149 H Potassium 6.0 H Carbon Dioxide 18 L BUN > 112 H Creatinine 12.2 H Glucose POC Glucose Calcium 8.1 L CK-MB (CK-2) CK-MB (CK-2) Rel Index Troponin T 0.698 H* Total Protein Albumin HDL Cholesterol 37 L Free T4 Coronavirus (PCR) Crossmatch 10/04/20 10/04/20 10/04/20 16:54 16:54 16:54 WBC RBC Hgb Hct RDW Lymph % (Auto) Lymph # (Auto) Seg Neutrophils % Seg Neutrophils # PT INR Sodium Potassium Carbon Dioxide BUN Creatinine Glucose POC Glucose Calcium CK-MB (CK-2) 4.7 H CK-MB (CK-2) Rel Index 5.1 H Troponin T Total Protein Albumin HDL Cholesterol Free T4 0.52 L Coronavirus (PCR) Crossmatch See Detail 10/04/20 10/05/20 10/05/20 21:14 08:45 08:45 WBC 13.9 H RBC Hgb Hct RDW Lymph % (Auto) 7.7 L Lymph # (Auto) 1.1 L Seg Neutrophils % 85.3 H Seg Neutrophils # 11.9 H PT INR Sodium 146 H Potassium 5.6 H Carbon Dioxide BUN 81 H Creatinine 7.9 H Glucose 118 H POC Glucose 116 H Calcium CK-MB (CK-2) CK-MB (CK-2) Rel Index Troponin T Total Protein 5.7 L Albumin 3.1 L HDL Cholesterol Free T4 Coronavirus (PCR) Crossmatch 10/05/20 10/05/20 10/05/20 17:24 21:59 Unknown WBC RBC Hgb Hct RDW Lymph % (Auto) Lymph # (Auto) Seg Neutrophils % Seg Neutrophils # PT INR Sodium Potassium Carbon Dioxide BUN Creatinine Glucose POC Glucose 133 H 175 H Calcium CK-MB (CK-2) CK-MB (CK-2) Rel Index Troponin T Total Protein Albumin HDL Cholesterol Free T4 Coronavirus (PCR) Positive A Crossmatch 10/06/20 10/06/20 10/06/20 05:35 05:35 07:38 WBC RBC 3.22 L Hgb 9.6 L Hct 28.8 L D RDW Lymph % (Auto) 5.8 L Lymph # (Auto) 0.6 L Seg Neutrophils % 88.7 H Seg Neutrophils # 9.7 H PT INR Sodium Potassium Carbon Dioxide BUN 39 H Creatinine 5.4 H Glucose 175 H POC Glucose 146 H Calcium CK-MB (CK-2) CK-MB (CK-2) Rel Index Troponin T Total Protein Albumin HDL Cholesterol Free T4 Coronavirus (PCR) Crossmatch 10/06/20 13:10 WBC RBC Hgb Hct RDW Lymph % (Auto) Lymph # (Auto) Seg Neutrophils % Seg Neutrophils # PT INR Sodium Potassium Carbon Dioxide BUN Creatinine Glucose POC Glucose 155 H Calcium CK-MB (CK-2) CK-MB (CK-2) Rel Index Troponin T Total Protein Albumin HDL Cholesterol Free T4 Coronavirus (PCR) Crossmatch Chest x-ray: report reviewed, image reviewed Additional Studies: XR chest 1V ap 10/06/20 INDICATION / CLINICAL INFORMATION: covid +. COMPARISON: 09/04/2020 FINDINGS: SUPPORT DEVICES: None. HEART /PULMONARY VASCULATURE: No significant abnormality. LUNGS / PLEURA: No significant pulmonary or pleural abnormality. No pneumothorax. ADDITIONAL FINDINGS: No significant additional findings. IMPRESSION: 1. No acute findings.
[2020-10-06] MEDS: DONEPEZIL 10 MG TAB PO SCH (21:43)
[2020-10-07] MEDS: INSULIN LISPRO 100 UNIT/ML SUB-Q SCH ×7 (08:27→23:52)
--- NOTE | 2020-10-07 09:30 | Progress Note ---
Assessment and Plan 1. ESRD: Patient is on maintenance hemodialysis three times a week, TTS schedule. Likely pt missed few sessions of HD Hemodialysis: 10/04, 10/05. 2. FEN: Metabolic acidosis, improved with HD. Hyperkalemia, improved. Monitor. 3. Anemia: Hb was 3 on admission, likely spurious. S/p 2 units of PRBC. Repeat Hb was 11.8, now 9.6. Epogen with HD. Monitor. 4. GI bleed: Heme positive stool. Seen by GI. 5. Hyperparathyroidism: Cinacalcet. 6. PVD: S/p b/l LE amputation. 7. DM type 2. 8. Seizure disorder. 9. Hypertension: Adjust meds as needed. Subjective: Patient seen and examined at the bedside. Examination: General appearance: well-developed, appears stated age HEENT: ATNC, PERRL Neck: trachea midline Respiratory: Clear to Auscultation Heart: regular, S1S2, no murmur Abdomen: soft, normoactive bowel sounds, not tender, not distended Integumentary: no obvious rash Neurologic: alert, able to move extremities Ext: no edema, R AKA, L BKA Hemodialysis access: R FA AVF Subjective Date of service: 10/07/20 Objective - Vital Signs Vital signs: Vital Signs - 12hr 10/06/20 10/06/20 10/07/20 21:54 21:55 04:00 Temperature 97.0 F L Pulse Rate 81 Pulse Rate [ 78 Right Brachial] Respiratory 6 L 16 Rate Blood Pressure 133/28 Blood Pressure 132/31 [Left] O2 Sat by Pulse 96 99 Oximetry 10/07/20 04:01 Temperature 97.7 F Pulse Rate 78 Pulse Rate [ Right Brachial] Respiratory 16 Rate Blood Pressure 165/78 Blood Pressure [Left] O2 Sat by Pulse 99 Oximetry - Lab 10/06/20 05:35 10/06/20 05:35 Most recent lab results Calcium 9.3 mg/dL (8.4-10.2) 10/06/20 05:35 Medications & Allergies - Medications Allergies/Adverse Reactions: Allergies Penicillins Allergy (Verified 07/11/19 17:31) Unknown Home Medications: Home Medications Medication Instructions Recorded Confirmed Last Taken Type diphenhydrAMINE [Benadryl CAP] 25 mg PO Q6HR PRN 12/27/16 10/05/20 05/24/19 History Insulin Lispro [Humalog 100 See Protocol SQ AC 02/14/17 10/05/20 05/22/19 History UNITS/ML Kwikpen] Donepezil HCl 10 mg PO QHS 11/10/18 10/05/20 05/25/19 History Sevelamer Carbonate 2,400 mg PO TIDWM 11/10/18 10/05/20 05/25/19 History Epoetin Darvin 10,000 Unit [Procrit] 10,000 unit IJ PRN 07/11/19 10/05/20 Unknown History ALBUTEROL NEB's [Proventil 0.083% 2.5 mg IH Q4HRT PRN #30 nebu 11/07/19 10/05/20 Unknown Rx NEBS] Ascorbic Acid [Vitamin C] 500 mg PO BID #60 tablet 11/07/19 10/05/20 Unknown Rx AtorvaSTATin [Lipitor] 40 mg PO QHS #30 tablet 11/07/19 10/05/20 Unknown Rx Cinacalcet [Sensipar] 30 mg PO QDAY #30 tablet 11/07/19 10/05/20 Unknown Rx Ferrous Sulfate [Feosol 325 MG tab] 325 mg PO BID #60 tablet 11/07/19 10/05/20 Unknown Rx Folic Acid [Folvite] 1 mg PO DAILY #30 tablet 11/07/19 10/05/20 Unknown Rx Thiamine [Vitamin B-1] 100 mg PO DAILY #30 tablet 11/07/19 10/05/20 Unknown Rx bisacodyL [Dulcolax tab] 10 mg PO QDAY PRN #30 tablet 11/07/19 10/05/20 Unknown Rx levETIRAcetam [Keppra TAB] 250 mg PO BID #30 tablet 11/07/19 10/05/20 05/25/19 Rx Aspirin [Aspirin BABY CHEW TAB] 81 mg PO QDAY #30 tab.chew 09/17/20 10/05/20 Unknown Rx Insulin Glargine [Lantus VIAL] 10 units SUB-Q QHS units 09/17/20 10/05/20 Unknown Rx Insulin Lispro [Humalog] 0 unit SUB-Q ACHS vial 09/17/20 10/05/20 Unknown Rx Insulin Lispro [Humalog] 5 unit SUB-Q AC vial 09/17/20 10/05/20 Unknown Rx Pantoprazole [Protonix TAB] 40 mg PO BID #15 tablet 09/17/20 10/05/20 Unknown Rx amLODIPine 5 mg PO QDAY tablet 09/17/20 10/05/20 Unknown Rx Cinacalcet [Sensipar] 30 mg PO QDAY 10/05/20 10/05/20 Unknown History Divalproex ER [DepaKOTE ER] 250 mg PO DAILY 10/05/20 10/05/20 Unknown History Midodrine [Proamatine] 5 mg PO TID PRN 10/05/20 10/05/20 Unknown History Ondansetron HCl [Zofran] 4 mg PO PRN 10/05/20 10/05/20 Unknown History Sertraline [Zoloft] 50 mg PO QDAY 10/05/20 10/05/20 Unknown History carvediloL [Coreg] 6.25 mg PO BID 10/05/20 10/05/20 Unknown History polyethylene glycoL 3350 [Miralax 17 gm PO BID PRN 10/05/20 10/05/20 Unknown History 3350] traMADoL [Ultram] 50 mg PO Q8HR PRN 10/05/20 10/05/20 Unknown History Active Medications: Generic Name Dose Route Start Last Admin Trade Name Freq PRN Reason Stop Dose Admin Albuterol 2.5 mg 10/04/20 19:33 Albuterol 2.5 Mg/3 Ml Nebu IH Q3HRT PRN Shortness Of Breath Amlodipine Besylate 5 mg 10/05/20 14:00 10/06/20 13:25 Amlodipine 5 Mg Tab PO 5 mg QDAY LUZ Administration Ascorbic Acid 500 mg 10/05/20 22:00 10/06/20 21:43 Ascorbic Acid 500 Mg Tab PO Not Given BID LUZ Aspirin 81 mg 10/05/20 15:00 10/06/20 11:46 Aspirin 81 Mg Tab Chew PO 81 mg QDAY LUZ Administration Atorvastatin Calcium 40 mg 10/05/20 22:00 10/06/20 21:43 Atorvastatin 40 Mg Tab PO Not Given QHS LUZ Bisacodyl 10 mg 10/05/20 14:47 Bisacodyl 5 Mg Tab PO QDAY PRN Constipation Carvedilol 6.25 mg 10/05/20 13:00 10/06/20 21:42 Carvedilol 6.25 Mg Tab PO Not Given BID [facility] Cinacalcet 30 mg 10/06/20 10:00 10/06/20 11:47 Cinacalcet 30 Mg Tab PO 30 mg QDAY [facility] Administration Clonidine HCl 0.2 mg 10/05/20 16:00 10/05/20 16:03 Clonidine Tts 0.2 Mg/24 Hr Patch TD 0.2 mg Sa [facility] Administration Divalproex Sodium 250 mg 10/06/20 10:00 10/06/20 11:50 Divalproex Er 250 Mg Tab PO 250 mg DAILY LUZ Administration Donepezil HCl 10 mg 10/05/20 22:00 10/06/20 21:43 Donepezil 10 Mg Tab PO Not Given QHS [facility] Ferrous Sulfate 325 mg 10/05/20 22:00 10/06/20 21:42 Ferrous Sulfate 325 Mg Tab PO Not Given BID [facility] Folic Acid 1 mg 10/06/20 10:00 10/06/20 11:47 Folic Acid 1 Mg Tab PO 1 mg DAILY [facility] Administration Heparin Sodium (Porcine) 3,000 unit 10/05/20 11:41 Heparin 10,000 Units/10 Ml Vial IV CORBY PRN hemodialysis Hydralazine HCl 5 mg 10/05/20 13:56 Hydralazine 20 Mg/1 Ml Inj IV Q30MIN PRN Hypertension Sodium Chloride 100 mls @ 999 mls/hr 10/04/20 20:03 Nacl 0.9% IV CORBY PRN Hypotension Insulin Human Lispro 0 unit 10/05/20 16:30 10/07/20 08:27 Insulin Lispro 100 Unit/Ml SUB-Q Not Given ACHS [facility] Protocol Insulin Human Lispro 5 unit 10/05/20 16:30 10/06/20 17:49 Insulin Lispro 100 Unit/Ml SUB-Q Not Given AC [facility] Levetiracetam 250 mg 10/05/20 22:00 10/06/20 21:43 Levetiracetam 500 Mg Tab PO Not Given BID [facility] Pantoprazole Sodium 40 mg 10/07/20 07:30 Pantoprazole 40 Mg Tab PO QDAC [facility] Sertraline HCl 50 mg 10/06/20 10:00 10/06/20 11:48 Sertraline 50 Mg Tab PO 50 mg QDAY [facility] Administration Sevelamer Carbonate 2,400 mg 10/05/20 17:00 10/06/20 17:50 Sevelamer Carbonate 800 Mg Tab PO Not Given TIDWM LUZ Sodium Chloride 10 ml 10/04/20 22:00 10/06/20 22:16 Sodium Chloride 0.9% 10 Ml Flush Syringe IV Not Given BID LUZ Sodium Chloride 10 ml 10/04/20 19:33 Sodium Chloride 0.9% 10 Ml Flush Syringe IV PRN PRN LINE FLUSH Thiamine HCl 100 mg 10/06/20 10:00 10/06/20 11:47 Thiamine 100 Mg Tab PO 100 mg DAILY [facility] Administration Tramadol HCl 50 mg 10/05/20 14:47 Tramadol 50 Mg Tab PO Q8H PRN PAIN, Moderate
[2020-10-07] MEDS: SEVELAMER CARBONATE 800 MG TAB PO SCH ×3 (09:40→18:54)
[2020-10-07] MEDS: PANTOPRAZOLE 40 MG TAB PO SCH (09:40)
[2020-10-07] MEDS: levETIRAcetam 500 MG TAB PO SCH ×2 (11:45→23:52)
[2020-10-07] MEDS: THIAMINE 100 MG TAB PO SCH (11:45)
[2020-10-07] MEDS: FOLIC ACID 1 MG TAB PO SCH (11:47)
[2020-10-07] MEDS: ASCORBIC ACID 500 MG TAB PO SCH ×2 (11:48→23:53)
[2020-10-07] MEDS: ASPIRIN 81 MG TAB CHEW PO SCH (11:48)
[2020-10-07] MEDS: SERTRALINE 50 MG TAB PO SCH (11:48)
[2020-10-07] MEDS: CINACALCET 30 MG TAB PO SCH (11:48)
[2020-10-07] MEDS: FERROUS SULFATE 325 MG TAB PO SCH ×2 (11:49→23:52)
[2020-10-07] MEDS: carvediloL 6.25 MG TAB PO SCH ×2 (11:50→23:53)
[2020-10-07] MEDS: amLODIPine 5 MG TAB PO SCH (11:50)
[2020-10-07] MEDS: DIVALPROEX ER 250 MG TAB PO SCH (12:10)
--- NOTE | 2020-10-07 13:53 | Discharge Summary ---
Providers - Providers Date of Admission: 10/04/20 19:33 Date of discharge: 10/08/20 Attending physician: RAMYA SANTANA 10/04/20 19:48 Consult to Physician [CONS] Routine Comment: Dr. Lubin spoke with Dr. [id number] Consulting Provider: FELIZ ELLISON Physician Instructions: Reason For Exam: esrd 10/05/20 08:41 Consult to Physician [CONS] Routine Comment: Consulting Provider: DARELL BURNS Physician Instructions: Reason For Exam: ICU admission 10/05/20 13:57 Consult to Physician [CONS] Routine Comment: Consulting Provider: BERNABE RICCI Physician Instructions: Reason For Exam: Anemia Primary care physician: SACHA BANEGAS Hospitalization Condition: Serious Hospital course: The patient is a 60 YO male with history significant for DM type 2, HTN, Anemia, ESRD on hemodialysis (TTS), GERD, Seizure disorder, Cognitive decline and [facility] Resident who was sent to [facility] ED 10/04 with c/o increased confusion and decreased interaction with staff. In the ER pt was found to be Hemoccult positve and Hb of 3. Pt was admitted to ICU for further evaluation and treatment. Patient received total 4 units of PRBC. Nephrology was consulted for treatment of ESRD. GI consulted for the evaluation of GI bleed and severe anemia. Daily course: 10/05/20: Mental status much improved, patient is very cooperative today. H/H stable, s/p transfusion of 4 units of PRBC. K level improved. follow BMP. planned for Hd today. transfer to [facility] with remote tele, patient tested positive for Covid, continue to follow inflammatory markers and consult ID. 10/06: Hemoglobin slightly dropped today, will continue to monitor. GI recommended no intervention as patient's H&H is stable without any active bleeding and also patient had a recent EGD and colonoscopy. Need outpatient pill camera endoscopy. Patient maintaining oxygenation in room air. Continue Covid protocol. Wait for ID recommendation, he has been tested positive for Covid since 09/02/20. Will follow inflammatory markers. If H&H remains stable and cleared by ID patient could be discharged back to senior care as soon as tomorrow. 10/07: clinically stable, d/c back to SNF Discharge diagnosis: --Positive for COVID-19 placed on COVID-19 protocol Patient does not appear to be hypoxic he has been positive since 09/02/20 We will continue to follow inflammatory markers Not a candidate for remdesivir, will consult ID for further recommendation --Acute GI bleed Hemoglobin was 3.0 on admission, continue PPI therapy Patient received total 4 units of packed RBC GI consulted, and recommended outpatient pill camera study Continue to follow H&H --SEvere anemia due to blood loss Continue to monitor H&H, status post 4 units of packed RBC transfusion Monitor for active bleed, GI consulted --Acute metabolic encephalopathy CT head without any acute process patient has underlying dementia Continue to monitor with neuro check, seizure precautions, aspiration precautions, supportive care. -- Hyperkalemia, resolved Due to end-stage renal disease Kayexalate as needed for potassium greater than 5.2 Supportive care, dialysis as per renal team. Monitor BMP --Hypertension, accelerated Resume home meds and adjust medications as needed IV hydralazine to keep SBP less than 160 -- End stage renal disease Nephrology team consulted in ED, avoid nephrotoxic agents, dialysis as per renal team. Monitor BMP --Seizure disorder, cont AED --Peripheral vascular disease, status post bilateral lower extremity amputation Continue supportive care --DVT prophylaxis hold anticoagulation for now due to GI bleed. --Dull code status Disposition: DC/[place]-03 SNF [facility] CERT Time spent for discharge: 34 minutes Core Measure Documentation - Palliative Care Palliative Care/ Comfort Measures: Not Applicable - Core Measures Any of the following diagnoses?: history only Exam - Physical Exam Narrative exam: Limited physical exam due to COVID-19 pandemic to minimize transmission of the disease. Vital reviewed and stable. GENERAL: well-developed well-nourished elderly male lying on bed appeared to be in no discomfort. HEENT: Normocephalic. Atraumatic. NECK: Supple. CHEST/LUNGS: breathing nonlabored. HEART/CARDIOVASCULAR: Heart rate stable on telemetry ABDOMEN: Visibly not distended SKIN: There is no rash NEURO: No focal motor deficit. Follows minor command. MUSCULOSKELETAL: No joint effusion EXTRIMITY: No swelling, no cyanosis or clubbing. PSYCH: Cooperative. EXTRIMITY: No edema, R AKA, L BKA - Constitutional Vitals: Temp Pulse Resp BP Pulse Ox 98.2 F 82 18 140/78 98 10/07/20 11:40 10/07/20 11:40 10/07/20 11:40 10/07/20 11:50 10/07/20 11:40 Plan Activity: other (bedrest) Diet: advance as tolerated Additional Instructions: Repeat CBC in 1 week. Follow-up at GI clinic for pill camera endoscopy Follow up with: SACHA BANEGAS MD [Primary Care Provider] - 3-5 Days
--- NOTE | 2020-10-07 14:23 | Progress Note ---
Assessment and Plan 60 YO Male Longterm Facility Resident at [facility] with ESRD on HD (T,R,Sa), DM, HLD, Debility, Seizure Disorder, GERD, Dementia presents to ED for evaluation. Patient is confused and lethargic at the time of my exam and is unable to provide history. Patient history provided by [facility] facility staff, ED staff, and EMS. Pt was noticed by [facility] staff to have increased confusion and decreased interaction with staff. EMS notified, and upon arrival the patient was found to be in distress and was transported to [facility] for further care and evaluation. Pt seen and evaluated in ED. All lab and imaging studies reviewed. Patient was found to be Hemoccult positve with GI Bleeding with blood loss anemia with HGB of 3, metabolic encephalopathy, acidosis. Pt admitted to ICU for medical management and medical stabilization due to increased risk of decompensation. No reports of fever, chills, CP, Palpitations, productive cough, skin rash, trauma, syncope, vertigo, seizure activity, or recent ill contact, or known exposure to COVID-19. No further history obtainable. Patient is confused and lethargic the time of my evaluation but has a positive gag reflex and is able to protect his airway without difficulty. GI is consulted. Patient received blood transfusion. Patient sleeping at this time. even if you wake him up he is non communicative. Patient is on room air. o2 saturation. O2 saturation 93%. Chest xray reported no acute findings. Patient afebrile. No leukocytosis. 10/06/20 Patient is on room air. O2 saturation 98%. No acute respiratory distress. Patient sleeping. Even if you wake him up, He is not communicative. Patient afebrile. No leukocytosis. Chest xray obtained 10/06/20 reported no acute findings. - Patient Problems (1) Acute respiratory failure Current Visit: No Status: Acute Plan to address problem: Patient presently on room air. No respiratory distress. O2 saturation on room air 98%. (2) ESRD (end stage renal disease) on dialysis Current Visit: No Status: Acute Plan to address problem: Management as per nephrology. (3) Diabetes mellitus Current Visit: No Status: Chronic Qualifiers: Diabetes mellitus type: type 2 Plan to address problem: Management as per primary care. (4) GI bleed Current Visit: Yes Status: Acute Plan to address problem: Patient received blood transfusion. To days HGB 9.6. Management as per gastroenterology. (5) GERD (gastroesophageal reflux disease) Current Visit: No Status: Chronic Qualifiers: Esophagitis presence: without esophagitis Qualified Code(s): K21.9 - Gastro-esophageal reflux disease without esophagitis Plan to address problem: Patient is on protonix. (6) Hypertension Current Visit: No Status: Chronic Qualifiers: Hypertension type: essential hypertension Qualified Code(s): I10 - Essential (primary) hypertension Plan to address problem: Management as per primary care. Subjective Date of service: 10/07/20 Interval history: Patient is on room air. O2 saturation 98%. No acute respiratory distress. Patient sleeping. Even if you wake him up, He is not communicative. Patient afebrile. No leukocytosis. Chest xray obtained 10/06/20 reported no acute findings. Objective Vital Signs - 12hr 10/07/20 10/07/20 10/07/20 04:00 04:01 11:40 Temperature 97.7 F 98.2 F Pulse Rate 78 82 Pulse Rate [ 78 Right Brachial] Respiratory 16 16 18 Rate Blood Pressure 165/78 140/78 O2 Sat by Pulse 99 99 98 Oximetry 10/07/20 11:50 Temperature Pulse Rate Pulse Rate [ Right Brachial] Respiratory Rate Blood Pressure 140/78 O2 Sat by Pulse Oximetry Constitutional: no acute distress, asleep Eyes: non-icteric Neck: supple Effort: mildly labored Ascultation: Bilateral: diminished breath sounds Integumentary: normal Extremities: no cyanosis, no edema Neurologic: other (Unable to assess. Patient sleeping.) Psychiatric: other (Unable to assess . Patient sleeping.) CBC and BMP: 10/06/20 05:35 10/06/20 05:35 ABG, PT/INR, D-dimer: PT/INR, D-dimer PT 16.2 Sec. (12.2-14.9) H 10/04/20 16:38 INR 1.30 (0.87-1.13) H 10/04/20 16:38 Abnormal lab findings: Abnormal Labs 10/04/20 10/04/20 10/04/20 16:38 16:38 16:38 WBC RBC 1.03 L Hgb 3.0 L* Hct 9.3 L* RDW 16.9 H Lymph % (Auto) 10.8 L Lymph # (Auto) 0.9 L Seg Neutrophils % 84.3 H Seg Neutrophils # PT 16.2 H INR 1.30 H Sodium 149 H Potassium 6.0 H Carbon Dioxide 18 L BUN > 112 H Creatinine 12.2 H Glucose POC Glucose Calcium 8.1 L CK-MB (CK-2) CK-MB (CK-2) Rel Index Troponin T 0.698 H* Total Protein Albumin HDL Cholesterol 37 L Free T4 Coronavirus (PCR) Crossmatch 10/04/20 10/04/20 10/04/20 16:54 16:54 16:54 WBC RBC Hgb Hct RDW Lymph % (Auto) Lymph # (Auto) Seg Neutrophils % Seg Neutrophils # PT INR Sodium Potassium Carbon Dioxide BUN Creatinine Glucose POC Glucose Calcium CK-MB (CK-2) 4.7 H CK-MB (CK-2) Rel Index 5.1 H Troponin T Total Protein Albumin HDL Cholesterol Free T4 0.52 L Coronavirus (PCR) Crossmatch See Detail 10/04/20 10/05/20 10/05/20 21:14 08:45 08:45 WBC 13.9 H RBC Hgb Hct RDW Lymph % (Auto) 7.7 L Lymph # (Auto) 1.1 L Seg Neutrophils % 85.3 H Seg Neutrophils # 11.9 H PT INR Sodium 146 H Potassium 5.6 H Carbon Dioxide BUN 81 H Creatinine 7.9 H Glucose 118 H POC Glucose 116 H Calcium CK-MB (CK-2) CK-MB (CK-2) Rel Index Troponin T Total Protein 5.7 L Albumin 3.1 L HDL Cholesterol Free T4 Coronavirus (PCR) Crossmatch 10/05/20 10/05/20 10/05/20 17:24 21:59 Unknown WBC RBC Hgb Hct RDW Lymph % (Auto) Lymph # (Auto) Seg Neutrophils % Seg Neutrophils # PT INR Sodium Potassium Carbon Dioxide BUN Creatinine Glucose POC Glucose 133 H 175 H Calcium CK-MB (CK-2) CK-MB (CK-2) Rel Index Troponin T Total Protein Albumin HDL Cholesterol Free T4 Coronavirus (PCR) Positive A Crossmatch 10/06/20 10/06/20 10/06/20 05:35 05:35 07:38 WBC RBC 3.22 L Hgb 9.6 L Hct 28.8 L D RDW Lymph % (Auto) 5.8 L Lymph # (Auto) 0.6 L Seg Neutrophils % 88.7 H Seg Neutrophils # 9.7 H PT INR Sodium Potassium Carbon Dioxide BUN 39 H Creatinine 5.4 H Glucose 175 H POC Glucose 146 H Calcium CK-MB (CK-2) CK-MB (CK-2) Rel Index Troponin T Total Protein Albumin HDL Cholesterol Free T4 Coronavirus (PCR) Crossmatch 10/06/20 10/06/20 10/07/20 13:10 21:51 08:08 WBC RBC Hgb Hct RDW Lymph % (Auto) Lymph # (Auto) Seg Neutrophils % Seg Neutrophils # PT INR Sodium Potassium Carbon Dioxide BUN Creatinine Glucose POC Glucose 155 H 137 H 120 H Calcium CK-MB (CK-2) CK-MB (CK-2) Rel Index Troponin T Total Protein Albumin HDL Cholesterol Free T4 Coronavirus (PCR) Crossmatch 10/07/20 11:37 WBC RBC Hgb Hct RDW Lymph % (Auto) Lymph # (Auto) Seg Neutrophils % Seg Neutrophils # PT INR Sodium Potassium Carbon Dioxide BUN Creatinine Glucose POC Glucose 143 H Calcium CK-MB (CK-2) CK-MB (CK-2) Rel Index Troponin T Total Protein Albumin HDL Cholesterol Free T4 Coronavirus (PCR) Crossmatch
[2020-10-07] MEDS ORDERED: EPOETIN ALFA 10,000 UNIT/1 ML INJ SUB-Q PRN (14:43)
[2020-10-07] MEDS: DONEPEZIL 10 MG TAB PO SCH (23:51)
[2020-10-08] MEDS: INSULIN LISPRO 100 UNIT/ML SUB-Q SCH ×4 (08:41→14:27)
--- NOTE | 2020-10-08 08:41 | Progress Note ---
Assessment and Plan 1. ESRD: Patient is on maintenance hemodialysis three times a week, TTS schedule. Likely pt missed few sessions of HD Hemodialysis: 10/04, 10/05, 10/08. 2. FEN: Metabolic acidosis, improved with HD. Hyperkalemia, improved. Monitor. 3. Anemia: Hb was 3 on admission, likely spurious. S/p 2 units of PRBC. Repeat Hb was 11.8, now 9.6. Epogen with HD. Monitor. 4. GI bleed: Heme positive stool. Seen by GI. 5. Hyperparathyroidism: Cinacalcet. 6. PVD: S/p b/l LE amputation. 7. DM type 2. 8. Seizure disorder. 9. Hypertension: Adjust meds as needed. Subjective: Patient seen and examined at the bedside. Examination: General appearance: well-developed, appears stated age HEENT: ATNC, PERRL Neck: trachea midline Respiratory: Clear to Auscultation Heart: regular, S1S2, no murmur Abdomen: soft, normoactive bowel sounds, not tender, not distended Integumentary: no obvious rash Neurologic: alert, able to move extremities Ext: no edema, R AKA, L BKA Hemodialysis access: R FA AVF Subjective Date of service: 10/08/20 Objective - Vital Signs Vital signs: Vital Signs - 12hr 10/07/20 10/07/20 10/08/20 21:40 23:53 04:00 Temperature 98.3 F Pulse Rate 82 82 Respiratory 20 18 Rate Blood Pressure 135/70 135/70 O2 Sat by Pulse 98 Oximetry 10/08/20 04:18 Temperature 98.8 F Pulse Rate 79 Respiratory 20 Rate Blood Pressure 166/81 O2 Sat by Pulse 99 Oximetry - Lab 10/06/20 05:35 10/06/20 05:35 Most recent lab results Calcium 9.3 mg/dL (8.4-10.2) 10/06/20 05:35 Medications & Allergies - Medications Allergies/Adverse Reactions: Allergies Penicillins Allergy (Verified 07/11/19 17:31) Unknown Home Medications: Home Medications Medication Instructions Recorded Confirmed Last Taken Type diphenhydrAMINE [Benadryl CAP] 25 mg PO Q6HR PRN 12/27/16 10/05/20 05/24/19 History Insulin Lispro [Humalog 100 See Protocol SQ AC 02/14/17 10/05/20 05/22/19 History UNITS/ML Kwikpen] Donepezil HCl 10 mg PO QHS 11/10/18 10/05/20 05/25/19 History Sevelamer Carbonate 2,400 mg PO TIDWM 11/10/18 10/05/20 05/25/19 History Epoetin Darvin 10,000 Unit [Procrit] 10,000 unit IJ PRN 07/11/19 10/05/20 Unknown History ALBUTEROL NEB's [Proventil 0.083% 2.5 mg IH Q4HRT PRN #30 nebu 11/07/19 10/05/20 Unknown Rx NEBS] Ascorbic Acid [Vitamin C] 500 mg PO BID #60 tablet 11/07/19 10/05/20 Unknown Rx AtorvaSTATin [Lipitor] 40 mg PO QHS #30 tablet 11/07/19 10/05/20 Unknown Rx Cinacalcet [Sensipar] 30 mg PO QDAY #30 tablet 11/07/19 10/05/20 Unknown Rx Ferrous Sulfate [Feosol 325 MG tab] 325 mg PO BID #60 tablet 11/07/19 10/05/20 Unknown Rx Folic Acid [Folvite] 1 mg PO DAILY #30 tablet 11/07/19 10/05/20 Unknown Rx Thiamine [Vitamin B-1] 100 mg PO DAILY #30 tablet 11/07/19 10/05/20 Unknown Rx bisacodyL [Dulcolax tab] 10 mg PO QDAY PRN #30 tablet 11/07/19 10/05/20 Unknown Rx levETIRAcetam [Keppra TAB] 250 mg PO BID #30 tablet 11/07/19 10/05/20 05/25/19 Rx Aspirin [Aspirin BABY CHEW TAB] 81 mg PO QDAY #30 tab.chew 09/17/20 10/05/20 Unknown Rx Insulin Glargine [Lantus VIAL] 10 units SUB-Q QHS units 09/17/20 10/05/20 Unknown Rx Insulin Lispro [Humalog] 0 unit SUB-Q ACHS vial 09/17/20 10/05/20 Unknown Rx Insulin Lispro [Humalog] 5 unit SUB-Q AC vial 09/17/20 10/05/20 Unknown Rx Pantoprazole [Protonix TAB] 40 mg PO BID #15 tablet 09/17/20 10/05/20 Unknown Rx amLODIPine 5 mg PO QDAY tablet 09/17/20 10/05/20 Unknown Rx Cinacalcet [Sensipar] 30 mg PO QDAY 10/05/20 10/05/20 Unknown History Divalproex ER [DepaKOTE ER] 250 mg PO DAILY 10/05/20 10/05/20 Unknown History Midodrine [Proamatine] 5 mg PO TID PRN 10/05/20 10/05/20 Unknown History Ondansetron HCl [Zofran] 4 mg PO PRN 10/05/20 10/05/20 Unknown History Sertraline [Zoloft] 50 mg PO QDAY 10/05/20 10/05/20 Unknown History carvediloL [Coreg] 6.25 mg PO BID 10/05/20 10/05/20 Unknown History polyethylene glycoL 3350 [Miralax 17 gm PO BID PRN 10/05/20 10/05/20 Unknown History 3350] traMADoL [Ultram] 50 mg PO Q8HR PRN 10/05/20 10/05/20 Unknown History Active Medications: Generic Name Dose Route Start Last Admin Trade Name Freq PRN Reason Stop Dose Admin Albuterol 2.5 mg 10/04/20 19:33 Albuterol 2.5 Mg/3 Ml Nebu IH Q3HRT PRN Shortness Of Breath Amlodipine Besylate 5 mg 10/05/20 14:00 10/07/20 11:50 Amlodipine 5 Mg Tab PO 5 mg QDAY LUZ Administration Ascorbic Acid 500 mg 10/05/20 22:00 10/07/20 23:53 Ascorbic Acid 500 Mg Tab PO Not Given BID LUZ Aspirin 81 mg 10/05/20 15:00 10/07/20 11:48 Aspirin 81 Mg Tab Chew PO 81 mg QDAY LUZ Administration Atorvastatin Calcium 40 mg 10/05/20 22:00 10/07/20 23:52 Atorvastatin 40 Mg Tab PO Not Given QHS LUZ Bisacodyl 10 mg 10/05/20 14:47 Bisacodyl 5 Mg Tab PO QDAY PRN Constipation Carvedilol 6.25 mg 10/05/20 13:00 10/07/20 23:53 Carvedilol 6.25 Mg Tab PO Not Given BID LUZ Cinacalcet 30 mg 10/06/20 10:00 10/07/20 11:48 Cinacalcet 30 Mg Tab PO 30 mg QDAY [facility] Administration Clonidine HCl 0.2 mg 10/05/20 16:00 10/05/20 16:03 Clonidine Tts 0.2 Mg/24 Hr Patch TD 0.2 mg Sa [facility] Administration Divalproex Sodium 250 mg 10/06/20 10:00 10/07/20 12:10 Divalproex Er 250 Mg Tab PO Not Given DAILY LUZ Donepezil HCl 10 mg 10/05/20 22:00 10/07/20 23:51 Donepezil 10 Mg Tab PO Not Given QHS [facility] Epoetin Darvin 10,000 unit 10/07/20 14:43 Epoetin Darvin 10,000 Unit/1 Ml Inj SUB-Q CORBY PRN hemodialysis Ferrous Sulfate 325 mg 10/05/20 22:00 10/07/20 23:52 Ferrous Sulfate 325 Mg Tab PO Not Given BID [facility] Folic Acid 1 mg 10/06/20 10:00 10/07/20 11:47 Folic Acid 1 Mg Tab PO 1 mg DAILY [facility] Administration Heparin Sodium (Porcine) 3,000 unit 10/05/20 11:41 Heparin 10,000 Units/10 Ml Vial IV CORBY PRN hemodialysis Hydralazine HCl 5 mg 10/05/20 13:56 Hydralazine 20 Mg/1 Ml Inj IV Q30MIN PRN Hypertension Sodium Chloride 100 mls @ 999 mls/hr 10/04/20 20:03 Nacl 0.9% IV CORBY PRN Hypotension Insulin Human Lispro 0 unit 10/05/20 16:30 10/07/20 23:52 Insulin Lispro 100 Unit/Ml SUB-Q Not Given ACHS [facility] Protocol Insulin Human Lispro 5 unit 10/05/20 16:30 10/07/20 18:54 Insulin Lispro 100 Unit/Ml SUB-Q Not Given AC [facility] Levetiracetam 250 mg 10/05/20 22:00 10/07/20 23:52 Levetiracetam 500 Mg Tab PO Not Given BID [facility] Pantoprazole Sodium 40 mg 10/07/20 07:30 10/07/20 09:40 Pantoprazole 40 Mg Tab PO 40 mg QDAC [facility] Administration Sertraline HCl 50 mg 10/06/20 10:00 10/07/20 11:48 Sertraline 50 Mg Tab PO 50 mg QDAY [facility] Administration Sevelamer Carbonate 2,400 mg 10/05/20 17:00 10/07/20 18:54 Sevelamer Carbonate 800 Mg Tab PO Not Given TIDWM [facility] Sodium Chloride 10 ml 10/04/20 22:00 10/07/20 23:52 Sodium Chloride 0.9% 10 Ml Flush Syringe IV Not Given BID LUZ Sodium Chloride 10 ml 10/04/20 19:33 Sodium Chloride 0.9% 10 Ml Flush Syringe IV PRN PRN LINE FLUSH Thiamine HCl 100 mg 10/06/20 10:00 10/07/20 11:45 Thiamine 100 Mg Tab PO 100 mg DAILY [facility] Administration Tramadol HCl 50 mg 10/05/20 14:47 Tramadol 50 Mg Tab PO Q8H PRN PAIN, Moderate
[2020-10-08] MEDS: ASPIRIN 81 MG TAB CHEW PO SCH (09:57)
[2020-10-08] MEDS: FERROUS SULFATE 325 MG TAB PO SCH (09:57)
[2020-10-08] MEDS: CINACALCET 30 MG TAB PO SCH (09:57)
[2020-10-08] MEDS: carvediloL 6.25 MG TAB PO SCH (09:57)
[2020-10-08] MEDS: ASCORBIC ACID 500 MG TAB PO SCH (09:57)
[2020-10-08] MEDS: SERTRALINE 50 MG TAB PO SCH (09:57)
[2020-10-08] MEDS: SEVELAMER CARBONATE 800 MG TAB PO SCH ×3 (09:57→13:55)
[2020-10-08] MEDS: levETIRAcetam 500 MG TAB PO SCH (09:58)
[2020-10-08] MEDS: FOLIC ACID 1 MG TAB PO SCH (09:58)
[2020-10-08] MEDS: THIAMINE 100 MG TAB PO SCH (09:58)
[2020-10-08] MEDS: PANTOPRAZOLE 40 MG TAB PO SCH (09:59)
[2020-10-08] MEDS: amLODIPine 5 MG TAB PO SCH (09:59)
[2020-10-08] MEDS: DIVALPROEX ER 250 MG TAB PO SCH (11:19)
--- NOTE | 2020-10-08 11:33 | Progress Note ---
Assessment and Plan --Positive for COVID-19 placed on COVID-19 protocol Patient does not appear to be hypoxic he has been positive since 09/02/20 We will continue to follow inflammatory markers Not a candidate for remdesivir, will consult ID for further recommendation --Acute GI bleed Hemoglobin was 3.0 on admission, continue PPI therapy Patient received total 4 units of packed RBC GI consulted, and recommended outpatient pill camera study Continue to follow H&H --SEvere anemia due to blood loss Continue to monitor H&H, status post 4 units of packed RBC transfusion Monitor for active bleed, GI consulted --Acute metabolic encephalopathy CT head without any acute process patient has underlying dementia Continue to monitor with neuro check, seizure precautions, aspiration precautions, supportive care. -- Hyperkalemia, resolved Due to end-stage renal disease Kayexalate as needed for potassium greater than 5.2 Supportive care, dialysis as per renal team. Monitor BMP --Hypertension, accelerated Resume home meds and adjust medications as needed IV hydralazine to keep SBP less than 160 -- End stage renal disease Nephrology team consulted in ED, avoid nephrotoxic agents, dialysis as per renal team. Monitor BMP --Seizure disorder, cont AED --Peripheral vascular disease, status post bilateral lower extremity amputation Continue supportive care --DVT prophylaxis hold anticoagulation for now due to GI bleed. --Dull code status Brief history: The patient is a 60 YO male with history significant for DM type 2, HTN, Anemia, ESRD on hemodialysis (TTS), GERD, Seizure disorder, Cognitive decline and [facility] Resident who was sent to [facility] ED 10/04 with c/o increased confusion and decreased interaction with staff. In the ER pt was found to be Hemoccult positve and Hb of 3. Pt was admitted to ICU for further evaluation and treatment. Patient received total 4 units of PRBC. Nephrology was consulted for treatment of ESRD. GI consulted for the evaluation of GI bleed and severe anemia. Daily course: 10/05/20: Mental status much improved, patient is very cooperative today. H/H stable, s/p transfusion of 4 units of PRBC. K level improved. follow BMP. planned for Hd today. transfer to [facility] with remote tele, patient tested positive for Covid, continue to follow inflammatory markers and consult ID. 10/06: Hemoglobin slightly dropped today, will continue to monitor. GI recommended no intervention as patient's H&H is stable without any active bleeding and also patient had a recent EGD and colonoscopy. Need outpatient pill camera endoscopy. Patient maintaining oxygenation in room air. Continue Covid protocol. Wait for ID recommendation, he has been tested positive for Covid since 09/02/20. Will follow inflammatory markers. If H&H remains stable and cleared by ID patient could be discharged [facility] to [facility] as soon as tomorrow. 10/07: clinically stable, pending SNF placement. monitor h/h Subjective Date of service: 10/07/20 Interval history: Patient seen and examined. Medical records and medication list reviewed. No acute event overnight noted by the RN. Clinically no change, no active bleeding Discussed plan of care at bedside with RN. Objective - Exam Narrative Exam: Limited physical exam due to COVID-19 pandemic to minimize transmission of the disease. Vital reviewed and stable. GENERAL: well-developed well-nourished elderly male lying on bed appeared to be in no discomfort. HEENT: Normocephalic. Atraumatic. NECK: Supple. CHEST/LUNGS: breathing nonlabored. HEART/CARDIOVASCULAR: Heart rate stable on telemetry ABDOMEN: Visibly not distended SKIN: There is no rash NEURO: No focal motor deficit. Follows minor command. MUSCULOSKELETAL: No joint effusion EXTRIMITY: No swelling, no cyanosis or clubbing. PSYCH: Cooperative. EXTRIMITY: No edema, R AKA, L BKA - Constitutional Vitals: Vital Signs - 12hr 10/07/20 10/08/20 10/08/20 23:53 04:00 04:18 Temperature 98.8 F Pulse Rate 82 79 Respiratory 18 20 Rate Blood Pressure 135/70 166/81 O2 Sat by Pulse 99 Oximetry 10/08/20 10/08/20 10/08/20 06:50 07:00 07:15 Temperature 98.9 F Pulse Rate 82 81 80 Respiratory 22 Rate Blood Pressure 165/94 156/85 161/83 O2 Sat by Pulse Oximetry 10/08/20 10/08/20 10/08/20 07:30 07:45 08:00 Temperature Pulse Rate 80 81 83 Respiratory Rate Blood Pressure 143/77 154/83 146/88 O2 Sat by Pulse Oximetry 10/08/20 10/08/20 10/08/20 08:15 08:30 08:45 Temperature Pulse Rate 83 89 88 Respiratory Rate Blood Pressure 135/87 148/81 138/82 O2 Sat by Pulse Oximetry 10/08/20 10/08/20 10/08/20 09:00 09:15 09:30 Temperature Pulse Rate 92 H 71 88 Respiratory Rate Blood Pressure 122/78 105/46 121/70 O2 Sat by Pulse Oximetry 10/08/20 10/08/20 10/08/20 09:45 09:57 09:59 Temperature Pulse Rate 86 79 79 Respiratory Rate Blood Pressure 138/71 166/81 166/81 O2 Sat by Pulse Oximetry 10/08/20 10:15 Temperature 98.2 F Pulse Rate 90 Respiratory 18 Rate Blood Pressure 147/75 O2 Sat by Pulse Oximetry - Labs CBC & Chem 7: 10/06/20 05:35 10/06/20 05:35 Labs: Abnormal lab results 10/07/20 10/08/20 Range/Units 11:37 07:45 POC Glucose 143 H 144 H (70-105) mg/dL HEART Score - HEART Score Troponin: Troponin T 0.698 ng/mL (0.00-0.029) H* 10/04/20 16:38
[2020-10-08 17:35] VITALS: BP 134/79
== END 2020-10-08 17:25 | DRG 91 ==
LOC: ED 16:14 → CC1 19:33 → 3A 10-05 12:01
PROVIDERS: ADMIT Internal Medicine; ATTEND Internal Medicine
PROC: 30233N1 Transfusion of Nonautologous Red Blood Cells into Peripheral Vein, Percutaneous Approach (ICD-10-PCS; principal; 2020-10-04)
PROC: 5A1D70Z Performance of Urinary Filtration, Intermittent, Less than 6 Hours Per Day (ICD-10-PCS; 2020-10-04)
PROC: 5A1D70Z Performance of Urinary Filtration, Intermittent, Less than 6 Hours Per Day (ICD-10-PCS; 2020-10-05)
PROC: 5A1D70Z Performance of Urinary Filtration, Intermittent, Less than 6 Hours Per Day (ICD-10-PCS; 2020-10-08)
DX: G92 Toxic encephalopathy (principal); U07.1 COVID-19; N18.6 End stage renal disease; K92.2 Gastrointestinal hemorrhage, unspecified; D62 Acute posthemorrhagic anemia; E87.5 Hyperkalemia; I12.0 Hypertensive chronic kidney disease with stage 5 chronic kidney disease or end stage renal disease; E11.22 Type 2 diabetes mellitus with diabetic chronic kidney disease; K21.9 Gastro-esophageal reflux disease without esophagitis; J45.909 Unspecified asthma, uncomplicated; F03.90 Unspecified dementia, unspecified severity, without behavioral disturbance, psychotic disturbance, mood disturbance, and anxiety; Z79.4 Long term (current) use of insulin; E78.5 Hyperlipidemia, unspecified; Z99.2 Dependence on renal dialysis; G40.909 Epilepsy, unspecified, not intractable, without status epilepticus; E87.2 Acidosis; E11.51 Type 2 diabetes mellitus with diabetic peripheral angiopathy without gangrene; E21.3 Hyperparathyroidism, unspecified; Z88.0 Allergy status to penicillin
CPT/HCPCS: 36415; 36430; 70450; 71045; 80048; 80053; 80061; 80177; 82140; 82271; 82550; 82553; 82805; 82962; 84439; 84443; 84484; 85025; 85610; 85670; 85730; 86850; 86900; 86901; 86920; 93005; 94640; 96365; G0378; A9270-GY; C9113; J0610; J1815; J8540; P9016; U0003

== ENCOUNTER 2021-02-11 14:32 | Inpatient (IN) | payer MEDICAID ==
[2021-02-11] MEDS ORDERED: levETIRAcetam 1000 MG/NS 0.75% 1,000 MG/100 ML BAG IV ONE (16:26)
--- NOTE | 2021-02-11 16:31 | Emergency Department Report ---
HPI - General Chief Complaint: Altered Mental Status Time Seen by Provider: 02/11/21 16:21 - HPI HPI: This is a 60-year-old -[place] male presents to the emergency department via EMS from his [facility] halfway with complaint of having 2 seizures since completing dialysis. The patient had 1 at the dialysis center just after completing dialysis, and another upon arrival to the halfway facility. At the time of my examination the patient is awake and alert but is confused, however the patient does have a history of dementia. He also has a history of end-stage renal disease on hemodialysis, seizures, paroxysmal atrial fibrillation, peripheral terrible disease. The patient is a poor historian and says he does not know why he was brought into the emergency department. It is unknown to me whether the patient received any medication prior to arrival but does present with a "dialysis communication form" that says patient refused all medications during 3 different times. ED Past Medical Hx - Past Medical History Previous Medical History?: Yes Hx Hypertension: Yes Hx Congestive Heart Failure: Yes Hx Diabetes: Yes Hx GERD: Yes Hx Renal Disease: Yes Hx Seizures: Yes Hx Kidney Stones: Yes Hx Asthma: Yes Hx Dementia: Yes Additional medical history: Anemia - Surgical History Past Surgical History?: Yes Additional Surgical History: Left BKA, 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] - Social History Smoking Status: Current Every Day Smoker Substance Use Type: None - Medications Home Medications: Home Medications Medication Instructions Recorded Confirmed Last Taken Type diphenhydrAMINE [Benadryl CAP] 25 mg PO Q6HR PRN 12/27/16 10/05/20 05/24/19 Hi story Insulin Lispro [Humalog 100 See Protocol SQ AC 02/14/17 10/05/20 05/22/19 History UNITS/ML Kwikpen] Donepezil HCl 10 mg PO QHS 11/10/18 10/05/20 05/25/19 History Sevelamer Carbonate 2,400 mg PO TIDWM 11/10/18 10/05/20 05/25/19 History Epoetin Darvin 10,000 Unit [Procrit] 10,000 unit IJ PRN 07/11/19 10/05/20 Unknown History ALBUTEROL NEB's [Proventil 0.083% 2.5 mg IH Q4HRT PRN #30 nebu 11/07/19 10/05/20 Unknown Rx NEBS] Ascorbic Acid [Vitamin C] 500 mg PO BID #60 tablet 11/07/19 10/05/20 Unknown Rx AtorvaSTATin [Lipitor] 40 mg PO QHS #30 tablet 11/07/19 10/05/20 Unknown Rx Cinacalcet [Sensipar] 30 mg PO QDAY #30 tablet 11/07/19 10/05/20 Unknown Rx Ferrous Sulfate [Feosol 325 MG tab] 325 mg PO BID #60 tablet 11/07/19 10/05/20 Unknown Rx Folic Acid [Folvite] 1 mg PO DAILY #30 tablet 11/07/19 10/05/20 Unknown Rx Thiamine [Vitamin B-1] 100 mg PO DAILY #30 tablet 11/07/19 10/05/20 Unknown Rx bisacodyL [Dulcolax tab] 10 mg PO QDAY PRN #30 tablet 11/07/19 10/05/20 Unknown Rx levETIRAcetam [Keppra TAB] 250 mg PO BID #30 tablet 11/07/19 10/05/20 05/25/19 Rx Aspirin [Aspirin BABY CHEW TAB] 81 mg PO QDAY #30 tab.chew 09/17/20 10/05/20 Unknown Rx Insulin Glargine [Lantus VIAL] 10 units SUB-Q QHS units 09/17/20 10/05/20 Unknown Rx Insulin Lispro [Humalog] 0 unit SUB-Q ACHS vial 09/17/20 10/05/20 Unknown Rx Insulin Lispro [Humalog] 5 unit SUB-Q AC vial 09/17/20 10/05/20 Unknown Rx Pantoprazole [Protonix TAB] 40 mg PO BID #15 tablet 09/17/20 10/05/20 Unknown Rx amLODIPine 5 mg PO QDAY tablet 09/17/20 10/05/20 Unknown Rx Cinacalcet [Sensipar] 30 mg PO QDAY 10/05/20 10/05/20 Unknown History Divalproex ER [DepaKOTE ER] 250 mg PO DAILY 10/05/20 10/05/20 Unknown History Midodrine [Proamatine] 5 mg PO TID PRN 10/05/20 10/05/20 Unknown History Ondansetron HCl [Zofran] 4 mg PO PRN 10/05/20 10/05/20 Unknown History Sertraline [Zoloft] 50 mg PO QDAY 10/05/20 10/05/20 Unknown History carvediloL [Coreg] 6.25 mg PO BID 10/05/20 10/05/20 Unknown History polyethylene glycoL 3350 [Miralax 17 gm PO BID PRN 10/05/20 10/05/20 Unknown History 3350] traMADoL [Ultram] 50 mg PO Q8HR PRN 10/05/20 10/05/20 Unknown History ED Review of Systems ROS: Stated complaint: SEIZURE/DIALYSIS Other details as noted in HPI Comment: Unobtainable due to pts medical conditions Physical Exam - Physical Exam Vital Signs: Vital Signs 02/11/21 14:32 Temperature 98.3 F Pulse Rate 88 Respiratory 20 Rate Blood Pressure 107/49 O2 Sat by Pulse 99 Oximetry Physical Exam: GENERAL: The patient is well-developed. HENT: Normocephalic. Atraumatic. Patient has moist mucous membranes. EYES: Extraocular motions are intact. Pupils equal reactive to light bilaterally. NECK: Supple. Trachea is midline. CHEST/LUNGS: Clear to auscultation. There is no respiratory distress noted. HEART/CARDIOVASCULAR: Regular. There is no tachycardia. There is no murmur. ABDOMEN: Abdomen is soft, nontender. Patient has normal bowel sounds. There is no abdominal distention. SKIN: Skin is warm and dry. NEURO: The patient is awake and cooperative, but confused. AAO x1-2. MUSCULOSKELETAL: Patient has a left BKA and right AKA. Seen moving his extremities. No obvious deformities. RECTAL: Melanotic stool that is positive on guaiac testing. ED Course Vital Signs 02/11/21 14:32 Temperature 98.3 F Pulse Rate 88 Respiratory 20 Rate Blood Pressure 107/49 O2 Sat by Pulse 99 Oximetry - Consultations Consultation #1: 02/11/21 20:03 I spoke to the desktop publishing associate transonic engineer, Dr. Stewart, who agrees with the plan for a blood transfusion, a PPI, and they will see the patient as a consult. ED Medical Decision Making - Lab Data Result diagrams: 02/11/21 16:31 02/11/21 16:31 Lab Results 02/11/21 02/11/21 02/11/21 Range/Units 16:31 16:31 16:31 WBC 7.2 (4.5-11.0) K/mm3 RBC 2.42 L (3.65-5.03) M/mm3 Hgb 6.5 L (11.8-15.2) gm/dl Hct 20.0 L (35.5-45.6) % MCV 82 L (84-94) fl MCH 27 L (28-32) pg MCHC 33 (32-34) % RDW 16.3 H (13.2-15.2) % Plt Count 361 (140-440) K/mm3 Lymph % (Auto) 14.2 (13.4-35.0) % [place] % (Auto) 9.4 H (0.0-7.3) % Eos % (Auto) 2.9 (0.0-4.3) % Baso % (Auto) 0.4 (0.0-1.8) % Lymph # (Auto) 1.0 L (1.2-5.4) K/mm3 [place] # (Auto) 0.7 (0.0-0.8) K/mm3 Eos # (Auto) 0.2 (0.0-0.4) K/mm3 Baso # (Auto) 0.0 (0.0-0.1) K/mm3 Seg Neutrophils % 73.1 H (40.0-70.0) % Seg Neutrophils # 5.3 (1.8-7.7) K/mm3 Sodium 135 L (137-145) mmol/L Potassium 3.6 (3.6-5.0) mmol/L Chloride 94.7 L (98-107) mmol/L Carbon Dioxide 22 (22-30) mmol/L Anion Gap 22 mmol/L BUN 24 H (9-20) mg/dL Creatinine 4.9 H (0.8-1.3) mg/dL Estimated GFR 15 ml/min BUN/Creatinine Ratio 5 % Glucose 195 H (75-100) mg/dL Calcium 9.0 (8.4-10.2) mg/dL Total Bilirubin < 0.20 (0.1-1.2) mg/dL AST 7 (5-40) units/L ALT < 5 L (7-56) units/L Alkaline Phosphatase 149 H (35-129) units/L Total Creatine Kinase 83 (55-170) units/L Total Protein 6.0 L (6.3-8.2) g/dL Albumin 3.4 L (3.9-5) g/dL Albumin/Globulin Ratio 1.3 % TSH (0.270-4.200) mlU/mL Blood Type Antibody Screen Crossmatch 02/11/21 02/11/21 Range/Units 16:31 17:50 WBC (4.5-11.0) K/mm3 RBC (3.65-5.03) M/mm3 Hgb (11.8-15.2) gm/dl Hct (35.5-45.6) % MCV (84-94) fl MCH (28-32) pg MCHC (32-34) % RDW (13.2-15.2) % Plt Count (140-440) K/mm3 Lymph % (Auto) (13.4-35.0) % [place] % (Auto) (0.0-7.3) % Eos % (Auto) (0.0-4.3) % Baso % (Auto) (0.0-1.8) % Lymph # (Auto) (1.2-5.4) K/mm3 [place] # (Auto) (0.0-0.8) K/mm3 Eos # (Auto) (0.0-0.4) K/mm3 Baso # (Auto) (0.0-0.1) K/mm3 Seg Neutrophils % (40.0-70.0) % Seg Neutrophils # (1.8-7.7) K/mm3 Sodium (137-145) mmol/L Potassium (3.6-5.0) mmol/L Chloride (98-107) mmol/L Carbon Dioxide (22-30) mmol/L Anion Gap mmol/L BUN (9-20) mg/dL Creatinine (0.8-1.3) mg/dL Estimated GFR ml/min BUN/Creatinine Ratio % Glucose (75-100) mg/dL Calcium (8.4-10.2) mg/dL Total Bilirubin (0.1-1.2) mg/dL AST (5-40) units/L ALT (7-56) units/L Alkaline Phosphatase (35-129) units/L Total Creatine Kinase (55-170) units/L Total Protein (6.3-8.2) g/dL Albumin (3.9-5) g/dL Albumin/Globulin Ratio % TSH 0.929 (0.270-4.200) mlU/mL Blood Type B POSITIVE Antibody Screen Negative Crossmatch See Detail - EKG Data -: EKG Interpreted by Me EKG shows normal: sinus rhythm, axis (Left axis deviation), intervals, QRS comp lexes (LVH, early repolarization), ST-T waves Rate: normal - EKG Data When compared to previous EKG there are: changes noted (Previous EKG from September of this year showed T wave inversions to the lateral leads and some depression in lead II that are not currently seen) Interpretation: other (Sinus rhythm at 81 bpm, left axis deviation, LVH, early repolarization. No ST elevation myocardial infarction.) - Radiology Data Radiology results: report reviewed, image reviewed interpreted by me: Chest x-ray does not show any acute process. There are no pleural effusions, obvious pneumonia and there is no pneumothorax. No significant cardiomegaly. NONENHANCED CT SCAN OF THE HEAD: INDICATION / CLINICAL INFORMATION: 60 years Male; Seizures. TECHNIQUE: Routine CT head without contrast. All CT scans at this location are performed using CT dose reduction for ALARA by means of automated exposure control. COMPARISON: CT scan of the head from 10/04/2020 FINDINGS: BRAIN / INTRACRANIAL CONTENTS: No acute hemorrhage, mass effect, midline shift, hydrocephalus, or acute, large territorial infarct. Volume loss in the cerebellar hemispheres; no attenuation areas in the zully probably from chronic ischemia; confluent periventricular low-attenuation areas due to chronic small vessel disease; considering the age, mild to moderate cortical involution; moderate dilatation of temporal horn tips suggesting moderate volume loss in the hippocampus; volume loss in the body of corpus callosum; CT findings unchanged CRANIOCERVICAL JUNCTION: No significant abnormality. ORBITS: No significant abnormality of visualized orbits. SINUSES / MASTOIDS: No significant abnormality of the visualized paranasal sinuses or mastoid air cells. ADDITIONAL FINDINGS: None. IMPRESSION: No focal mass, hemorrhage, hydrocephalus, or acute, large territorial infarct. Volume loss in the cerebral and cerebellar hemispheres; CT findings remain unchanged since 10/04/2013 - Medical Decision Making This patient was sent in after he had 2 different seizures after finishing dialysis. I have not witnessed any seizure-like activity during the patient's ED course but he was loaded with a gram of Keppra. EKG did not show any morphology consistent with ST elevation myocardial infarction. The patient's labs shows normocytic anemia with hemoglobin of 6.5, and renal failure consistent with his end-stage renal disease on hemodialysis. This hemoglobin level of 6.5 is lower than his usual anemia of chronic kidney di sease. With the patient left this hospital in September after blood transfusions and a colonoscopy, his hemoglobin was about 9.5. Due to the seizures and low hemoglobin, the patient was sent for a CT scan of the head without contrast that did not show any hemorrhage or large vessel occlusion, or any other acute process. I did a rectal examination that showed melanotic stool that was positive on g uaiac testing. 1 unit of packed red blood cells was ordered for transfusion. The patient was given Protonix. GI was contacted and consulted. He will be admitted to the hospital for further evaluation and treatment was accepted for admission by the hospitalist, Dr. Rucker. Critical Care Time: Yes Critical care time in (mins) excluding proc time.: 35 Critical care attestation.: If time is entered above; I have spent that time in minutes in the direct care of this critically ill patient, excluding procedure time. Critical care time was spent on this patient in doing his initial evaluation, multiple reevaluations, ordering and interpretation of labs and imaging, discussion with gastroenterology, a unit of packed red blood cells ordered for transfusion, IV PPI for an upper GI bleed Critical Care Time: 35 minutes ED Disposition Clinical Impression: Upper GI bleeding, Anemia requiring transfusions, Melena, Seizure Disposition: OP ADMIT IP TO THIS HOSP Is pt being admited?: Yes Condition: Serious Time of Disposition: 23:07
--- NOTE | 2021-02-11 16:56 | XRay Report ---
CHEST 1 VIEW 02/11/2021 3:49 PM INDICATION / CLINICAL INFORMATION: SOB. COMPARISON: 10/06/20 FINDINGS: SUPPORT DEVICES: None. HEART / MEDIASTINUM: No significant abnormality. LUNGS / PLEURA: No significant pulmonary or pleural abnormality. No pneumothorax. ADDITIONAL FINDINGS: No significant additional findings. IMPRESSION: 1. No acute findings. No change. Signer Name: Lea Rodriguez MD Signed: 02/11/2021 4:51 PM Workstation Name: [email or web address]
[2021-02-11 17:09] LABS: Basophils % (Auto) 0.4 % (0.0-1.8); Eosinophils # (Auto) 0.2 K/mm3 (0.0-0.4); Eosinophils % (Auto) 2.9 % (0.0-4.3); Hemoglobin 6.5 gm/dl (11.8-15.2); Lymphocytes % (Auto) 14.2 % (13.4-35.0); Mean Corpuscular HGB Conc 33 % (32-34); Mean Corpuscular Volume 82 fl (84-94); Monocytes # (Auto) 0.7 K/mm3 (0.0-0.8); Monocytes % (Auto) 9.4 % (0.0-7.3); Platelet Count 361 K/mm3 (140-440); Red Blood Count 2.42 M/mm3 (3.65-5.03); Red Cell Distribution Width 16.3 % (13.2-15.2)
[2021-02-11 17:21] LABS: Alanine Aminotransferase < 5 units/L (7-56); Albumin 3.4 g/dL (3.9-5); BUN/Creatinine Ratio 5; Blood Urea Nitrogen 24 mg/dL (9-20); Hemolysis Index 3
[2021-02-11] MEDS ORDERED: LORazepam 2 MG/ML VIAL IV ONE (17:48)
[2021-02-11] MEDS ORDERED: SODIUM CHLORIDE 0.9% 500 ML 500 ML IV ONE (18:33)
--- NOTE | 2021-02-11 19:15 | Cat Scan Report ---
NONENHANCED CT SCAN OF THE HEAD: INDICATION / CLINICAL INFORMATION: 60 years Male; Seizures. TECHNIQUE: Routine CT head without contrast. All CT scans at this location are performed using CT dos e reduction for ALARA by means of automated exposure control. COMPARISON: CT scan of the head from 10/04/2020 FINDINGS: BRAIN / INTRACRANIAL CONTENTS: No acute hemorrhage, mass effect, midline shift, hydrocephalus, or acu te, large territorial infarct. Volume loss in the cerebellar hemispheres; no attenuation areas in the zully probably from chronic ischemia; confluent periventricular low-attenuation areas due to chronic small vessel disease; considering the age, mild to moderate cortical involution; moderate dilatation of temporal horn tips suggesting moderate volume loss in the hippocampus; volume loss in the body of corpus callosum; CT findings unchanged CRANIOCERVICAL JUNCTION: No significant abnormality. ORBITS: No significant abnormality of visualized orbits. SINUSES / MASTOIDS: No significant abnormality of the visualized paranasal sinuses or mastoid air brock ls. ADDITIONAL FINDINGS: None. IMPRESSION: No focal mass, hemorrhage, hydrocephalus, or acute, large territorial infarct. Volume loss in the ce rebral and cerebellar hemispheres; CT findings remain unchanged since 10/04/2013 Signer Name: Sánchez Baer MD Signed: 02/11/2021 7:11 PM Workstation Name: [email or web address]
[2021-02-11] MEDS ORDERED: PANTOPRAZOLE 40 MG INJ IV ONE (19:59)
--- NOTE | 2021-02-11 20:03 | History and Physical Report ---
Medications and Allergies Allergies Allergy/AdvReac Type Severity Reaction Status Date / Time Penicillins Allergy Unknown Verified 07/11/19 17:31 Home Medications Medication Instructions Recorded Confirmed Last Taken Type diphenhydrAMINE [Benadryl CAP] 25 mg PO Q6HR PRN 12/27/16 10/05/20 05/24/19 Hi story Insulin Lispro [Humalog 100 See Protocol SQ AC 02/14/17 10/05/20 05/22/19 History UNITS/ML Kwikpen] Donepezil HCl 10 mg PO QHS 11/10/18 10/05/20 05/25/19 History Sevelamer Carbonate 2,400 mg PO TIDWM 11/10/18 10/05/20 05/25/19 History Epoetin Darvin 10,000 Unit [Procrit] 10,000 unit IJ PRN 07/11/19 10/05/20 Unknown History ALBUTEROL NEB's [Proventil 0.083% 2.5 mg IH Q4HRT PRN #30 nebu 11/07/19 10/05/20 Unknown Rx NEBS] Ascorbic Acid [Vitamin C] 500 mg PO BID #60 tablet 11/07/19 10/05/20 Unknown Rx AtorvaSTATin [Lipitor] 40 mg PO QHS #30 tablet 11/07/19 10/05/20 Unknown Rx Cinacalcet [Sensipar] 30 mg PO QDAY #30 tablet 11/07/19 10/05/20 Unknown Rx Ferrous Sulfate [Feosol 325 MG tab] 325 mg PO BID #60 tablet 11/07/19 10/05/20 Unknown Rx Folic Acid [Folvite] 1 mg PO DAILY #30 tablet 11/07/19 10/05/20 Unknown Rx Thiamine [Vitamin B-1] 100 mg PO DAILY #30 tablet 11/07/19 10/05/20 Unknown Rx bisacodyL [Dulcolax tab] 10 mg PO QDAY PRN #30 tablet 11/07/19 10/05/20 Unknown Rx levETIRAcetam [Keppra TAB] 250 mg PO BID #30 tablet 11/07/19 10/05/20 05/25/19 Rx Aspirin [Aspirin BABY CHEW TAB] 81 mg PO QDAY #30 tab.chew 09/17/20 10/05/20 Unknown Rx Insulin Glargine [Lantus VIAL] 10 units SUB-Q QHS units 09/17/20 10/05/20 Unknown Rx Insulin Lispro [Humalog] 0 unit SUB-Q ACHS vial 09/17/20 10/05/20 Unknown Rx Insulin Lispro [Humalog] 5 unit SUB-Q AC vial 09/17/20 10/05/20 Unknown Rx Pantoprazole [Protonix TAB] 40 mg PO BID #15 tablet 09/17/20 10/05/20 Unknown Rx amLODIPine 5 mg PO QDAY tablet 09/17/20 10/05/20 Unknown Rx Cinacalcet [Sensipar] 30 mg PO QDAY 10/05/20 10/05/20 Unknown History Divalproex ER [DepaKOTE ER] 250 mg PO DAILY 10/05/20 10/05/20 Unknown History Midodrine [Proamatine] 5 mg PO TID PRN 10/05/20 10/05/20 Unknown History Ondansetron HCl [Zofran] 4 mg PO PRN 10/05/20 10/05/20 Unknown History Sertraline [Zoloft] 50 mg PO QDAY 10/05/20 10/05/20 Unknown History carvediloL [Coreg] 6.25 mg PO BID 10/05/20 10/05/20 Unknown History polyethylene glycoL 3350 [Miralax 17 gm PO BID PRN 10/05/20 10/05/20 Unknown History 3350] traMADoL [Ultram] 50 mg PO Q8HR PRN 10/05/20 10/05/20 Unknown History Exam - Constitutional Vitals: Temp Pulse Resp BP Pulse Ox 98.3 F 80 18 121/56 98 02/11/21 16:31 02/11/21 17:26 02/11/21 16:31 02/11/21 16:31 02/11/21 16:31 Results - Labs CBC & Chem 7: 02/11/21 16:31 02/11/21 16:31 Labs: Abnormal lab results 02/11/21 02/11/21 02/11/21 Range/Units 16:31 16:31 17:50 RBC 2.42 L (3.65-5.03) M/mm3 Hgb 6.5 L (11.8-15.2) gm/dl Hct 20.0 L (35.5-45.6) % MCV 82 L (84-94) fl MCH 27 L (28-32) pg RDW 16.3 H (13.2-15.2) % [place] % (Auto) 9.4 H (0.0-7.3) % Lymph # (Auto) 1.0 L (1.2-5.4) K/mm3 Seg Neutrophils % 73.1 H (40.0-70.0) % Sodium 135 L (137-145) mmol/L Chloride 94.7 L (98-107) mmol/L BUN 24 H (9-20) mg/dL Creatinine 4.9 H (0.8-1.3) mg/dL Glucose 195 H (75-100) mg/dL ALT < 5 L (7-56) units/L Alkaline Phosphatase 149 H (35-129) units/L Total Protein 6.0 L (6.3-8.2) g/dL Albumin 3.4 L (3.9-5) g/dL Crossmatch See Detail
--- NOTE | 2021-02-11 20:04 | History and Physical Report ---
History of Present Illness Chief complaint: He had a seizure History of present illness: 60 YO Male Senior Care Facility Resident at [facility] with ESRD on HD (T,R,Sa), DM, HLD, Debility, Seizure Disorder, GERD, Dementia, Nicotine Dependence, Asthma presents to ED for evaluation. Patient is confused and lethargic at the time of my exam and is unable to provide history. Patient history provided by EMS staff, ED staff, as well as senior living facility staff. As per staff the patient underwent his routine hemodialysis session today. Patient experienced a seizure shortly after his dialysis session was concluded and again upon return to the senior living facility. EMS was notified and upon arrival the patient was found to be in distress and subsequent transported to [facility] for further care and evaluation of the aforementioned symptoms. The patient was seen and evaluated in the emergency department. All lab and imaging studies reviewed. The patient was found to have melanotic stool complicated by blood loss anemia which is consistent with GI bleed. GI team consulted in ED. Patient has diminished cognition but has a positive gag reflex and is able to protect his airway without difficulty. Pt admitted to telemetry for medical management and medical stabilization due to increased risk of decompensation. No reports of fever, chills, CP, Palpitations, productive cough, skin rash, trauma, syncope, or recent ill contacts, or known exposure to COVID-19. No further history obtainable. Prior admission on 10/04/2020 reviewed. All listed medication reconciled at time of admission. Advanced care planning conducted in ED. Past History Past Medical History: diabetes, ESRD, GERD, hyperlipidemia, seizures, other (See HPI) Past Surgical History: Other (Left BKA, dialysis access) Social history: , smoking. denies: alcohol abuse, prescription drug abuse Family history: diabetes, hypertension Medications and Allergies Allergies Allergy/AdvReac Type Severity Reaction Status Date / Time Penicillins Allergy Unknown Verified 07/11/19 17:31 Home Medications Medication Instructions Recorded Confirmed Last Taken Type diphenhydrAMINE [Benadryl CAP] 25 mg PO Q6HR PRN 12/27/16 10/05/20 05/24/19 History Insulin Lispro [Humalog 100 See Protocol SQ AC 02/14/17 10/05/20 05/22/19 History UNITS/ML Kwikpen] Donepezil HCl 10 mg PO QHS 11/10/18 10/05/2019 History Sevelamer Carbonate 2,400 mg PO TIDWM 11/10/18 10/05/20 05/25/19 History Epoetin Darvin 10,000 Unit [Procrit] 10,000 unit IJ PRN 07/11/19 10/05/20 Unknown History ALBUTEROL NEB's [Proventil 0.083% 2.5 mg IH Q4HRT PRN #30 nebu 11/07/19 10/05/20 Unknown Rx NEBS] Ascorbic Acid [Vitamin C] 500 mg PO BID #60 tablet 11/07/19 10/05/20 Unknown Rx AtorvaSTATin [Lipitor] 40 mg PO QHS #30 tablet 11/07/19 10/05/20 Unknown Rx Cinacalcet [Sensipar] 30 mg PO QDAY #30 tablet 11/07/19 10/05/20 Unknown Rx Ferrous Sulfate [Feosol 325 MG tab] 325 mg PO BID #60 tablet 11/07/19 10/05/20 Unknown Rx Folic Acid [Folvite] 1 mg PO DAILY #30 tablet 11/07/19 10/05/20 Unknown Rx Thiamine [Vitamin B-1] 100 mg PO DAILY #30 tablet 11/07/19 10/05/20 Unknown Rx bisacodyL [Dulcolax tab] 10 mg PO QDAY PRN #30 tablet 11/07/19 10/05/20 Unknown Rx levETIRAcetam [Keppra TAB] 250 mg PO BID #30 tablet 11/07/19 10/05/20 05/25/19 Rx Aspirin [Aspirin BABY CHEW TAB] 81 mg PO QDAY #30 tab.chew 09/17/20 10/05/20 Unknown Rx Insulin Glargine [Lantus VIAL] 10 units SUB-Q QHS units 09/17/20 10/05/20 Unknown Rx Insulin Lispro [Humalog] 0 unit SUB-Q ACHS vial 09/17/20 10/05/20 Unknown Rx Insulin Lispro [Humalog] 5 unit SUB-Q AC vial 09/17/20 10/05/20 Unknown Rx Pantoprazole [Protonix TAB] 40 mg PO BID #15 tablet 09/17/20 10/05/20 Unknown Rx amLODIPine 5 mg PO QDAY tablet 09/17/20 10/05/20 Unknown Rx Cinacalcet [Sensipar] 30 mg PO QDAY 10/05/20 10/05/20 Unknown History Divalproex ER [DepaKOTE ER] 250 mg PO DAILY 10/05/20 10/05/20 Unknown History Midodrine [Proamatine] 5 mg PO TID PRN 10/05/20 10/05/20 Unknown History Ondansetron HCl [Zofran] 4 mg PO PRN 10/05/20 10/05/20 Unknown History Sertraline [Zoloft] 50 mg PO QDAY 10/05/20 10/05/20 Unknown History carvediloL [Coreg] 6.25 mg PO BID 10/05/20 10/05/20 Unknown History polyethylene glycoL 3350 [Miralax 17 gm PO BID PRN 10/05/20 10/05/20 Unknown History 3350] traMADoL [Ultram] 50 mg PO Q8HR PRN 10/05/20 10/05/20 Unknown History Review of Systems ROS unobtainable: due to mental status Exam - Constitutional Vitals: Temp Pulse Resp BP Pulse Ox 98.3 F 80 18 121/56 98 02/11/21 16:31 02/11/21 17:26 02/11/21 16:31 02/11/21 16:31 02/11/21 16:31 General appearance: Present: mild distress - EENT Eyes: Present: PERRL ENT: hearing intact, clear oral mucosa - Neck Neck: Present: supple, normal ROM - Respiratory Respiratory effort: normal Respiratory: bilateral: CTA - Cardiovascular Heart Sounds: Present: S1 & S2. Absent: rub, click - Extremities Extremities: pulses symmetrical, No edema Peripheral Pulses: within normal limits - Abdominal General gastrointestinal: Present: soft, non-tender, non-distended, normal bowel sounds Male genitourinary: Present: normal - Integumentary Integumentary: Present: dry, clammy - Musculoskeletal Musculoskeletal: generalized weakness - Psychiatric Psychiatric: no intact judgment & insight, no memory intact - Neurologic Neurologic: CNII-XII intact, no focal deficits, moves all extremities, no gait normal Results - Labs CBC & Chem 7: 02/11/21 16:31 02/11/21 16:31 Labs: Abnormal lab results 02/11/21 02/11/21 02/11/21 Range/Units 16:31 16:31 17:50 RBC 2.42 L (3.65-5.03) M/mm3 Hgb 6.5 L (11.8-15.2) gm/dl Hct 20.0 L (35.5-45.6) % MCV 82 L (84-94) fl MCH 27 L (28-32) pg RDW 16.3 H (13.2-15.2) % Posey % (Auto) 9.4 H (0.0-7.3) % Lymph # (Auto) 1.0 L (1.2-5.4) K/mm3 Seg Neutrophils % 73.1 H (40.0-70.0) % Sodium 135 L (137-145) mmol/L Chloride 94.7 L (98-107) mmol/L BUN 24 H (9-20) mg/dL Creatinine 4.9 H (0.8-1.3) mg/dL Glucose 195 H (75-100) mg/dL ALT < 5 L (7-56) units/L Alkaline Phosphatase 149 H (35-129) units/L Total Protein 6.0 L (6.3-8.2) g/dL Albumin 3.4 L (3.9-5) g/dL Crossmatch See Detail Assessment and Plan - Patient Problems (1) GI bleed Current Visit: Yes Status: Acute Plan to address problem: GI team consulted, packed red blood cell transfusion, PPI therapy, CBC, repeat CBC in a.m., (2) Acute encephalopathy Current Visit: No Status: Acute Plan to address problem: Supportive care, seizure precautions, aspiration precautions, fall precautions. (3) End stage renal disease Current Visit: No Status: Chronic Plan to address problem: Nephrology team consulted in ED, dialysis as per renal team. (4) Hyperlipidemia Current Visit: No Status: Chronic Qualifiers: Hyperlipidemia type: mixed hyperlipidemia Qualified Code(s): E78.2 - Mixed hyperlipidemia Plan to address problem: Supportive care, low-cholesterol diet, continue medical management (5) Hypertension Current Visit: No Status: Chronic Qualifiers: Hypertension type: essential hypertension Qualified Code(s): I10 - Essential (primary) hypertension Plan to address problem: Monitor blood pressure every 6, continue medical management (6) Seizure disorder Current Visit: No Status: Chronic Plan to address problem: Seizure precautions, continue antiepileptic therapy, (7) DVT prophylaxis Current Visit: Yes Status: Acute Plan to address problem: SCD to bilateral lower extremities while in bed, hold anticoagulation for now due to GI bleed. (8) Advance care planning Current Visit: Yes Status: Acute Plan to address problem: Disease education conducted, care plan discussed, diagnosis discussed, prognosis discussed, patient is full code, +30 minutes.
[2021-02-11] MEDS ORDERED: ACETAMINOPHEN 325 MG TAB PO PRN (20:23)
[2021-02-11] MEDS ORDERED: ONDANSETRON 4 MG/2 ML INJ IV PRN (20:23)
[2021-02-11] MEDS ORDERED: ALBUTEROL 2.5 MG/3 ML NEBU IH PRN (20:23)
[2021-02-11] MEDS ORDERED: POLYETHYLENE GLYCOL 3350 17 GM POWDER PO PRN (20:26)
[2021-02-11] MEDS ORDERED: diphenhydrAMINE 25 MG CAP PO PRN (20:26)
[2021-02-11] MEDS ORDERED: traMADol 50 MG TAB PO PRN (20:26)
[2021-02-11] MEDS ORDERED: MIDODRINE 5 MG TAB PO PRN (20:26)
[2021-02-11] MEDS ORDERED: NON-FORMULARY EACH (Ondansetron Hcl [Zofran] 4 MG Tablet) PO SCH (20:30)
[2021-02-11] MEDS ORDERED: ONDANSETRON 4 MG ODT TAB PO PRN (20:46)
[2021-02-11] MEDS ORDERED: levETIRAcetam 500 MG/5 ML ORAL LIQD PO SCH (22:00)
[2021-02-11] MEDS ORDERED: levETIRAcetam 500 MG TAB PO SCH (22:00)
[2021-02-12] MEDS: ASCORBIC ACID 500 MG TAB PO SCH ×3 (05:38→22:31)
[2021-02-12] MEDS: PANTOPRAZOLE 40 MG INJ IV SCH ×3 (05:38→22:30)
[2021-02-12] MEDS: FERROUS SULFATE 325 MG TAB PO SCH ×3 (05:39→22:30)
[2021-02-12] MEDS: carvediloL 6.25 MG TAB PO SCH ×3 (05:39→22:33)
[2021-02-12] MEDS: DONEPEZIL 10 MG TAB PO SCH ×2 (05:39→22:34)
--- NOTE | 2021-02-12 07:53 | Progress Note ---
Assessment and Plan Assessment and plan: (1) GI bleed Current Visit: Yes Status: Acute Plan to address problem: GI team consulted, packed red blood cell transfusion, PPI therapy, CBC, repeat CBC in a.m., (2) Acute encephalopathy Current Visit: No Status: Acute Plan to address problem: Supportive care, seizure precautions, aspiration precautions, fall precautions. (3) End stage renal disease Current Visit: No Status: Chronic Plan to address problem: Nephrology team consulted in ED, dialysis as per renal team. (4) Hyperlipidemia Current Visit: No Status: Chronic Qualifiers: Hyperlipidemia type: mixed hyperlipidemia Qualified Code(s): E78.2 - Mixed hyperlipidemia Plan to address problem: Supportive care, low-cholesterol diet, continue medical management (5) Hypertension Current Visit: No Status: Chronic Qualifiers: Hypertension type: essential hypertension Qualified Code(s): I10 - Essential (primary) hypertension Plan to address problem: Monitor blood pressure every 6, continue medical management (6) Seizure disorder Current Visit: No Status: Chronic Plan to address problem: Seizure precautions, continue antiepileptic therapy, (7) DVT prophylaxis Current Visit: Yes Status: Acute Plan to address problem: SCD to bilateral lower extremities while in bed, hold anticoagulation for now due to GI bleed. (8) Advance care planning Current Visit: Yes Status: Acute Plan to address problem: Disease education conducted, care plan discussed, diagnosis discussed, prognosis discussed, patient is full code, +30 minutes. 02/12/2021 -Patient was given a unit of blood posttransfusion hemoglobin was 8.5 -GI saw the patient and recommend no further work-up. Patient has previous EGD and showed AVM. GI recommend conservative management. We will not scope unless you have active bleeding. -Nephrology is consulted for regular hemodialysis -Patient is on Keppra 500 mg p.o. twice daily, I discontinued tramadol because it can increase seizure -Patient is hypertensive and his midodrine was continued, I discontinued midodrine. -Resume home medications. -Patient started on mechanical soft diet. History Interval history: Patient was seen and evaluated this morning Patient was alert, oriented to self and place. Not oriented to time Said no GI bleed overnight Hospitalist Physical - Physical exam Narrative exam: Not in cardiopulmonary distress. The patient appeared well nourished and normally developed. Vital signs as documented. Head exam is unremarkable. No scleral icterus . Neck is without jugular venous distension, thyromegaly, or carotid bruits. Lungs are clear to auscultation. Cardiac exam reveals regular rate and Rhythm. Abdominal exam reveals normal bowel sounds, nontender, no organomegaly. Extremities right AKA, left BKA [employer]: Alert and oriented 2. - Constitutional Vitals: Temp Pulse Resp BP Pulse Ox 98.6 F 80 16 163/79 90 02/12/21 00:39 02/12/21 00:39 02/12/21 00:39 02/12/21 00:39 02/12/21 00:39 General appearance: Present: mild distress Results - Labs CBC & Chem 7: 02/12/21 09:16 02/12/21 09:16 Labs: Laboratory Last Values WBC 7.2 K/mm3 (4.5-11.0) 02/11/21 16:31 RBC 2.42 M/mm3 (3.65-5.03) L 02/11/21 16:31 Hgb 6.5 gm/dl (11.8-15.2) L 02/11/21 16:31 Hct 20.0 % (35.5-45.6) L 02/11/21 16:31 MCV 82 fl (84-94) L 02/11/21 16:31 MCH 27 pg (28-32) L 02/11/21 16:31 MCHC 33 % (32-34) 02/11/21 16:31 RDW 16.3 % (13.2-15.2) H 02/11/21 16:31 Plt Count 361 K/mm3 (140-440) 02/11/21 16:31 Lymph % (Auto) 14.2 % (13.4-35.0) 02/11/21 16:31 Whitfield % (Auto) 9.4 % (0.0-7.3) H 02/11/21 16:31 Eos % (Auto) 2.9 % (0.0-4.3) 02/11/21 16:31 Baso % (Auto) 0.4 % (0.0-1.8) 02/11/21 16:31 Lymph # (Auto) 1.0 K/mm3 (1.2-5.4) L 02/11/21 16:31 Whitfield # (Auto) 0.7 K/mm3 (0.0-0.8) 02/11/21 16:31 Eos # (Auto) 0.2 K/mm3 (0.0-0.4) 02/11/21 16:31 Baso # (Auto) 0.0 K/mm3 (0.0-0.1) 02/11/21 16:31 Seg Neutrophils % 73.1 % (40.0-70.0) H 02/11/21 16:31 Seg Neutrophils # 5.3 K/mm3 (1.8-7.7) 02/11/21 16:31 Sodium 135 mmol/L (137-145) L 02/11/21 16:31 Potassium 3.6 mmol/L (3.6-5.0) 02/11/21 16:31 Chloride 94.7 mmol/L (98-107) L 02/11/21 16:31 Carbon Dioxide 22 mmol/L (22-30) 02/11/21 16:31 Anion Gap 22 mmol/L 02/11/21 16:31 BUN 24 mg/dL (9-20) H 02/11/21 16:31 Creatinine 4.9 mg/dL (0.8-1.3) H 02/11/21 16:31 Estimated GFR 15 ml/min 02/11/21 16:31 BUN/Creatinine Ratio 5 % 02/11/21 16:31 Glucose 195 mg/dL (75-100) H 02/11/21 16:31 Calcium 9.0 mg/dL (8.4-10.2) 02/11/21 16:31 Total Bilirubin < 0.20 mg/dL (0.1-1.2) 02/11/21 16:31 AST 7 units/L (5-40) 02/11/21 16:31 ALT < 5 units/L (7-56) L 02/11/21 16:31 Alkaline Phosphatase 149 units/L (35-129) H 02/11/21 16:31 Total Creatine Kinase 83 units/L (55-170) 02/11/21 16:31 Total Protein 6.0 g/dL (6.3-8.2) L 02/11/21 16:31 Albumin 3.4 g/dL (3.9-5) L 02/11/21 16:31 Albumin/Globulin Ratio 1.3 % 02/11/21 16:31 TSH 0.929 mlU/mL (0.270-4.200) 02/11/21 16:31 Blood Type B POSITIVE 02/11/21 17:50 Antibody Screen Negative 02/11/21 17:50 Crossmatch See Detail 02/11/21 17:50 Snider/IV: Voiding Method Incontinent Active Medications - Current Medications Current Medications: Generic Name Dose Route Start Last Admin Trade Name Freq PRN Reason Stop Dose Admin Acetaminophen 650 mg 02/11/21 20:23 Acetaminophen 325 Mg Tab PO Q4H PRN Pain MILD(1-3)/Fever >100.5/DINERO Albuterol 2.5 mg 02/11/21 20:23 Albuterol 2.5 Mg/3 Ml Nebu IH Q4HRT PRN Shortness Of Breath Amlodipine Besylate 5 mg 02/12/21 10:00 Amlodipine 5 Mg Tab PO QDAY [facility] Ascorbic Acid 500 mg 02/11/21 22:00 02/12/21 05:38 Ascorbic Acid 500 Mg Tab PO Not Given BID [facility] Atorvastatin Calcium 40 mg 02/11/21 22:00 02/12/21 05:38 Atorvastatin 40 Mg Tab PO Not Given QHS [facility] Bisacodyl 10 mg 02/11/21 20:26 Bisacodyl 5 Mg Tab PO QDAY PRN Constipation Carvedilol 6.25 mg 02/11/21 22:00 02/12/21 05:39 Carvedilol 6.25 Mg Tab PO Not Given BID [facility] Cinacalcet 30 mg 02/12/21 10:00 Cinacalcet 30 Mg Tab PO QDAY [facility] Diphenhydramine HCl 25 mg 02/11/21 20:26 Diphenhydramine 25 Mg Cap PO Q6HR PRN Itching Divalproex Sodium 250 mg 02/12/21 10:00 Divalproex Er 250 Mg Tab PO DAILY [facility] Donepezil HCl 10 mg 02/11/21 22:00 02/12/21 05:39 Donepezil 10 Mg Tab PO Not Given QHS [facility] Ferrous Sulfate 325 mg 02/11/21 22:00 02/12/21 05:39 Ferrous Sulfate 325 Mg Tab PO Not Given BID [facility] Folic Acid 1 mg 02/12/21 10:00 Folic Acid 1 Mg Tab PO DAILY [facility] Levetiracetam 500 mg 02/12/21 07:47 Levetiracetam 500 Mg/5 Ml Oral Liqd PO BID [facility] Miscellaneous Medication 10,000 unit 02/11/21 20:30 Epoetin Darvin 10,000 Unit [Procrit] IJ PRN LUZ Ondansetron HCl 4 mg 02/11/21 20:23 Ondansetron 4 Mg/2 Ml Inj IV Q8H PRN Nausea And Vomiting Pantoprazole Sodium 40 mg 02/11/21 22:00 02/12/21 05:38 Pantoprazole 40 Mg Inj IV Not Given BID LUZ Polyethylene Glycol 17 gm 02/11/21 20:26 Polyethylene Glycol 3350 17 Gm Powder PO BID PRN Constipation Sertraline HCl 50 mg 02/12/21 10:00 Sertraline 50 Mg Tab PO QDAY [facility] Sevelamer Carbonate 2,400 mg 02/12/21 08:00 Sevelamer Carbonate 800 Mg Tab PO TIDWM LUZ Sodium Chloride 10 ml 02/11/21 22:00 02/12/21 05:38 Sodium Chloride 0.9% 10 Ml Flush Syringe IV Not Given BID LUZ Sodium Chloride 10 ml 02/11/21 20:23 Sodium Chloride 0.9% 10 Ml Flush Syringe IV PRN PRN LINE FLUSH Thiamine HCl 100 mg 02/12/21 10:00 Thiamine 100 Mg Tab PO DAILY [facility]
[2021-02-12] MEDS: SEVELAMER CARBONATE 800 MG TAB PO SCH ×3 (08:41→17:25)
[2021-02-12 09:27] LABS: Basophils # (Auto) 0.1 K/mm3 (0.0-0.1); Basophils % (Auto) 1.2 % (0.0-1.8); Eosinophils # (Auto) 0.3 K/mm3 (0.0-0.4); Eosinophils % (Auto) 3.5 % (0.0-4.3); Hematocrit 26.1 % (35.5-45.6); Hemoglobin 8.5 gm/dl (11.8-15.2); Lymphocytes # (Auto) 1.2 K/mm3 (1.2-5.4); Lymphocytes % (Auto) 15.7 % (13.4-35.0); Mean Corpuscular HGB Conc 33 % (32-34); Mean Corpuscular Volume 82 fl (84-94); Monocytes # (Auto) 0.6 K/mm3 (0.0-0.8); Monocytes % (Auto) 7.5 % (0.0-7.3); Platelet Count 337 K/mm3 (140-440); Red Blood Count 3.21 M/mm3 (3.65-5.03); Red Cell Distribution Width 15.6 % (13.2-15.2)
--- NOTE | 2021-02-12 09:36 | Consultation ---
History of Present Illness - Reason for Consult Consult date: 02/12/21 end stage renal disease - History of Present Illness The patient is a 60 YO male with history significant for DM type 2, HTN, Anemia, ESRD on hemodialysis (TTS), GERD, Seizure disorder, Cognitive decline and [facility] Resident who was sent to [facility] ED 02/11 after he had 2 seizures since completing dialysis yesterday. Patient was not able to provide any history and there was no family member at the bedside. Pt experienced a seizure shortly after his dialysis session and again upon return [facility]. In the ED the patient was found to have melanotic stool. Labs significant for Hb 6.5, Creat 5.9 and BUN 35. Patient was transfused yesterday. Nephrology was consulted for treatment of ESRD. Past History Past Medical History: diabetes, dialysis, ESRD, GERD, hyperlipidemia, seizures, other (See HPI) Past Surgical History: Other (Left BKA, dialysis access) Social history: , smoking. denies: alcohol abuse, prescription drug abuse Family history: diabetes, hypertension Medications and Allergies Allergies Allergy/AdvReac Type Severity Reaction Status Date / Time Penicillins Allergy Unknown Verified 07/11/19 17:31 Home Medications Medication Instructions Recorded Confirmed Last Taken Type diphenhydrAMINE [Benadryl CAP] 25 mg PO Q6HR PRN 12/27/16 10/05/20 05/24/19 History Insulin Lispro [Humalog 100 See Protocol SQ AC 02/14/17 10/05/20 05/22/19 History UNITS/ML Kwikpen] Donepezil HCl 10 mg PO QHS 11/10/18 10/05/20 05/25/19 History Sevelamer Carbonate 2,400 mg PO TIDWM 11/10/18 10/05/20 05/25/19 History Epoetin Darvin 10,000 Unit [Procrit] 10,000 unit IJ PRN 07/11/19 10/05/20 Unknown History ALBUTEROL NEB's [Proventil 0.083% 2.5 mg IH Q4HRT PRN #30 nebu 11/07/19 10/05/20 Unknown Rx NEBS] Ascorbic Acid [Vitamin C] 500 mg PO BID #60 tablet 11/07/19 10/05/20 Unknown Rx AtorvaSTATin [Lipitor] 40 mg PO QHS #30 tablet 11/07/19 10/05/20 Unknown Rx Cinacalcet [Sensipar] 30 mg PO QDAY #30 tablet 11/07/19 10/05/20 Unknown Rx Ferrous Sulfate [Feosol 325 MG tab] 325 mg PO BID #60 tablet 11/07/19 10/05/20 Unknown Rx Folic Acid [Folvite] 1 mg PO DAILY #30 tablet 11/07/19 10/05/20 Unknown Rx Thiamine [Vitamin B-1] 100 mg PO DAILY #30 tablet 11/07/19 10/05/20 Unknown Rx bisacodyL [Dulcolax tab] 10 mg PO QDAY PRN #30 tablet 11/07/19 10/05/20 Unknown Rx levETIRAcetam [Keppra TAB] 250 mg PO BID #30 tablet 11/07/19 10/05/20 05/25/19 Rx Aspirin [Aspirin BABY CHEW TAB] 81 mg PO QDAY #30 tab.chew 09/17/20 10/05/20 Unknown Rx Insulin Glargine [Lantus VIAL] 10 units SUB-Q QHS units 09/17/20 10/05/20 Unknown Rx Insulin Lispro [Humalog] 0 unit SUB-Q ACHS vial 09/17/20 10/05/20 Unknown Rx Insulin Lispro [Humalog] 5 unit SUB-Q AC vial 09/17/20 10/05/20 Unknown Rx Pantoprazole [Protonix TAB] 40 mg PO BID #15 tablet 09/17/20 10/05/20 Unknown Rx amLODIPine 5 mg PO QDAY tablet 09/17/20 10/05/20 Unknown Rx Cinacalcet [Sensipar] 30 mg PO QDAY 10/05/20 10/05/20 Unknown History Divalproex ER [DepaKOTE ER] 250 mg PO DAILY 10/05/20 10/05/20 Unknown History Midodrine [Proamatine] 5 mg PO TID PRN 10/05/20 10/05/20 Unknown History Ondansetron HCl [Zofran] 4 mg PO PRN 10/05/20 10/05/20 Unknown History Sertraline [Zoloft] 50 mg PO QDAY 10/05/20 10/05/20 Unknown History carvediloL [Coreg] 6.25 mg PO BID 10/05/20 10/05/20 Unknown History polyethylene glycoL 3350 [Miralax 17 gm PO BID PRN 10/05/20 10/05/20 Unknown History 3350] traMADoL [Ultram] 50 mg PO Q8HR PRN 10/05/20 10/05/20 Unknown History Active Meds: Active Medications Acetaminophen (Acetaminophen 325 Mg Tab) 650 mg PO Q4H PRN PRN Reason: Pain MILD(1-3)/Fever >100.5/DINERO Albuterol (Albuterol 2.5 Mg/3 Ml Nebu) 2.5 mg IH Q4HRT PRN PRN Reason: Shortness Of Breath Amlodipine Besylate (Amlodipine 5 Mg Tab) 5 mg PO QDAY [facility] Ascorbic Acid (Ascorbic Acid 500 Mg Tab) 500 mg PO BID [facility] Last Admin: 02/12/21 05:38 Dose: Not Given Documented by: Atorvastatin Calcium (Atorvastatin 40 Mg Tab) 40 mg PO QHS [facility] Last Admin: 02/12/21 05:38 Dose: Not Given Documented by: Bisacodyl (Bisacodyl 5 Mg Tab) 10 mg PO QDAY PRN PRN Reason: Constipation Carvedilol (Carvedilol 6.25 Mg Tab) 6.25 mg PO BID [facility] Last Admin: 02/12/21 05:39 Dose: Not Given Documented by: Cinacalcet (Cinacalcet 30 Mg Tab) 30 mg PO QDAY [facility] Diphenhydramine HCl (Diphenhydramine 25 Mg Cap) 25 mg PO Q6HR PRN PRN Reason: Itching Divalproex Sodium (Divalproex Er 250 Mg Tab) 250 mg PO DAILY [facility] Donepezil HCl (Donepezil 10 Mg Tab) 10 mg PO QHS [facility] Last Admin: 02/12/21 05:39 Dose: Not Given Documented by: Ferrous Sulfate (Ferrous Sulfate 325 Mg Tab) 325 mg PO BID [facility] Last Admin: 02/12/21 05:39 Dose: Not Given Documented by: Folic Acid (Folic Acid 1 Mg Tab) 1 mg PO DAILY [facility] Levetiracetam (Levetiracetam 500 Mg/5 Ml Oral Liqd) 500 mg PO BID [facility] Miscellaneous Medication (Epoetin Darvin 10,000 Unit [Procrit]) 10,000 unit IJ PRN LUZ Ondansetron HCl (Ondansetron 4 Mg/2 Ml Inj) 4 mg IV Q8H PRN PRN Reason: Nausea And Vomiting Pantoprazole Sodium (Pantoprazole 40 Mg Inj) 40 mg IV BID [facility] Last Admin: 02/12/21 05:38 Dose: Not Given Documented by: Polyethylene Glycol (Polyethylene Glycol 3350 17 Gm Powder) 17 gm PO BID PRN PRN Reason: Constipation Sertraline HCl (Sertraline 50 Mg Tab) 50 mg PO QDAY [facility] Sevelamer Carbonate (Sevelamer Carbonate 800 Mg Tab) 2,400 mg PO TIDWM [facility] Last Admin: 02/12/21 08:41 Dose: Not Given Documented by: Sodium Chloride (Sodium Chloride 0.9% 10 Ml Flush Syringe) 10 ml IV BID [facility] Last Admin: 02/12/21 05:38 Dose: Not Given Documented by: Sodium Chloride (Sodium Chloride 0.9% 10 Ml Flush Syringe) 10 ml IV PRN PRN PRN Reason: LINE FLUSH Thiamine HCl (Thiamine 100 Mg Tab) 100 mg PO DAILY [facility] Review of Systems ROS unobtainable: due to mental status Exam - Vital Signs Vital signs: Vital Signs Temp Pulse Resp BP Pulse Ox 98.3 F 88 20 107/49 99 02/11/21 14:32 02/11/21 14:32 02/11/21 14:32 02/11/21 14:32 02/11/21 14:32 Results - Lab Results 02/12/21 09:16 02/12/21 09:16 Most recent lab results Calcium 9.0 mg/dL (8.4-10.2) 02/11/21 16:31 Assessment and Plan 1. ESRD: Patient is on maintenance hemodialysis three times a week, TTS schedule. Last outpatient hemodialysis 02/11. Hemodialysis: 2. FEN: Monitor. 3. Anemia: S/p PRBC. Repeat Hb 8.5. Epogen with HD. Monitor. 4. GI bleed: Seen by GI. 5. Hyperparathyroidism: Cinacalcet. 6. PVD: S/p b/l LE amputation. 7. DM type 2. 8. Seizure disorder. 9. Hypertension: Adjust meds as needed. Subjective: Patient seen and examined at the bedside. Examination: General appearance: well-developed, appears stated age, emaciated HEENT: ATNC, JOSÉ ANTONIO Neck: trachea midline Respiratory: Clear to Auscultation Heart: regular, S1S2, no murmur Abdomen: soft, normoactive bowel sounds, not tender, not distended Integumentary: no obvious rash Neurologic: grimaces, not following any command Ext: no edema, R AKA, L BKA Hemodialysis access: R FA AVF
--- NOTE | 2021-02-12 09:58 | Gastroenterology Consultation ---
History of Present Illness - Reason for Consult Consult date: 02/12/21 anemia/dark stools Requesting physician: SAHRA ULLOA - History of Present Illness The patient is a 60 yo aam with h/o esrd on dialysis, chronic anemia, retirement resident who presented following seizures/ams after dialysis. History gathered from chart review and staff as patient unable to provide history at time of exam (awake but altered). He has chronic anemia, dark stools, and found to have hgb of 6.5 (similar to previous baseline) and dark stools in ER. He had egd/colonoscopy for anemia in september (EGD gastritis/duodenitis, colonoscopy cecal avm s/p APC tx and polyp removed). No overt bleeding since admission. received 1 unit of blood since arrival. HD stable. Past History Past Medical History: diabetes, ESRD, GERD, hyperlipidemia, seizures, other (See HPI) Past Surgical History: Other (Left BKA, dialysis access) Social history: , smoking. denies: alcohol abuse, prescription drug abuse Family history: diabetes, hypertension Medications and Allergies Allergies Allergy/AdvReac Type Severity Reaction Status Date / Time Penicillins Allergy Unknown Verified 07/11/19 17:31 Home Medications Medication Instructions Recorded Confirmed Last Taken Type diphenhydrAMINE [Benadryl CAP] 25 mg PO Q6HR PRN 12/27/16 10/05/20 05/24/19 History Insulin Lispro [Humalog 100 See Protocol SQ AC 02/14/17 10/05/20 05/22/19 History UNITS/ML Kwikpen] Donepezil HCl 10 mg PO QHS 11/10/18 10/05/20 05/25/19 History Sevelamer Carbonate 2,400 mg PO TIDWM 11/10/18 10/05/20 05/25/19 History Epoetin Darvin 10,000 Unit [Procrit] 10,000 unit IJ PRN 07/11/19 10/05/20 Unknown History ALBUTEROL NEB's [Proventil 0.083% 2.5 mg IH Q4HRT PRN #30 nebu 11/07/19 10/05/20 Unknown Rx NEBS] Ascorbic Acid [Vitamin C] 500 mg PO BID #60 tablet 11/07/19 10/05/20 Unknown Rx AtorvaSTATin [Lipitor] 40 mg PO QHS #30 tablet 11/07/19 10/05/20 Unknown Rx Cinacalcet [Sensipar] 30 mg PO QDAY #30 tablet 11/07/19 10/05/20 Unknown Rx Ferrous Sulfate [Feosol 325 MG tab] 325 mg PO BID #60 tablet 11/07/19 10/05/20 Unknown Rx Folic Acid [Folvite] 1 mg PO DAILY #30 tablet 11/07/19 10/05/20 Unknown Rx Thiamine [Vitamin B-1] 100 mg PO DAILY #30 tablet 11/07/19 10/05/20 Unknown Rx bisacodyL [Dulcolax tab] 10 mg PO QDAY PRN #30 tablet 11/07/19 10/05/20 Unknown Rx levETIRAcetam [Keppra TAB] 250 mg PO BID #30 tablet 11/07/19 10/05/20 05/25/19 Rx Aspirin [Aspirin BABY CHEW TAB] 81 mg PO QDAY #30 tab.chew 09/17/20 10/05/20 Unknown Rx Insulin Glargine [Lantus VIAL] 10 units SUB-Q QHS units 09/17/20 10/05/20 Unknown Rx Insulin Lispro [Humalog] 0 unit SUB-Q ACHS vial 09/17/20 10/05/20 Unknown Rx Insulin Lispro [Humalog] 5 unit SUB-Q AC vial 09/17/20 10/05/20 Unknown Rx Pantoprazole [Protonix TAB] 40 mg PO BID #15 tablet 09/17/20 10/05/20 Unknown Rx amLODIPine 5 mg PO QDAY tablet 09/17/20 10/05/20 Unknown Rx Cinacalcet [Sensipar] 30 mg PO QDAY 10/05/20 10/05/20 Unknown History Divalproex ER [DepaKOTE ER] 250 mg PO DAILY 10/05/20 10/05/20 Unknown History Midodrine [Proamatine] 5 mg PO TID PRN 10/05/20 10/05/20 Unknown History Ondansetron HCl [Zofran] 4 mg PO PRN 10/05/20 10/05/20 Unknown History Sertraline [Zoloft] 50 mg PO QDAY 10/05/20 10/05/20 Unknown History carvediloL [Coreg] 6.25 mg PO BID 10/05/20 10/05/20 Unknown History polyethylene glycoL 3350 [Miralax 17 gm PO BID PRN 10/05/20 10/05/20 Unknown History 3350] traMADoL [Ultram] 50 mg PO Q8HR PRN 10/05/20 10/05/20 Unknown History Active Meds: Active Medications Acetaminophen (Acetaminophen 325 Mg Tab) 650 mg PO Q4H PRN PRN Reason: Pain MILD(1-3)/Fever >100.5/DINERO Albuterol (Albuterol 2.5 Mg/3 Ml Nebu) 2.5 mg IH Q4HRT PRN PRN Reason: Shortness Of Breath Amlodipine Besylate (Amlodipine 5 Mg Tab) 5 mg PO QDAY [facility] Ascorbic Acid (Ascorbic Acid 500 Mg Tab) 500 mg PO BID [facility] Last Admin: 02/12/21 05:38 Dose: Not Given Documented by: Atorvastatin Calcium (Atorvastatin 40 Mg Tab) 40 mg PO QHS [facility] Last Admin: 02/12/21 05:38 Dose: Not Given Documented by: Bisacodyl (Bisacodyl 5 Mg Tab) 10 mg PO QDAY PRN PRN Reason: Constipation Carvedilol (Carvedilol 6.25 Mg Tab) 6.25 mg PO BID [facility] Last Admin: 02/12/21 05:39 Dose: Not Given Documented by: Cinacalcet (Cinacalcet 30 Mg Tab) 30 mg PO QDAY [facility] Diphenhydramine HCl (Diphenhydramine 25 Mg Cap) 25 mg PO Q6HR PRN PRN Reason: Itching Divalproex Sodium (Divalproex Er 250 Mg Tab) 250 mg PO DAILY [facility] Donepezil HCl (Donepezil 10 Mg Tab) 10 mg PO QHS [facility] Last Admin: 02/12/21 05:39 Dose: Not Given Documented by: Ferrous Sulfate (Ferrous Sulfate 325 Mg Tab) 325 mg PO BID [facility] Last Admin: 02/12/21 05:39 Dose: Not Given Documented by: Folic Acid (Folic Acid 1 Mg Tab) 1 mg PO DAILY [facility] Levetiracetam (Levetiracetam 500 Mg/5 Ml Oral Liqd) 500 mg PO BID [facility] Miscellaneous Medication (Epoetin Darvin 10,000 Unit [Procrit]) 10,000 unit IJ PRN LUZ Ondansetron HCl (Ondansetron 4 Mg/2 Ml Inj) 4 mg IV Q8H PRN PRN Reason: Nausea And Vomiting Pantoprazole Sodium (Pantoprazole 40 Mg Inj) 40 mg IV BID [facility] Last Admin: 02/12/21 05:38 Dose: Not Given Documented by: Polyethylene Glycol (Polyethylene Glycol 3350 17 Gm Powder) 17 gm PO BID PRN PRN Reason: Constipation Sertraline HCl (Sertraline 50 Mg Tab) 50 mg PO QDAY [facility] Sevelamer Carbonate (Sevelamer Carbonate 800 Mg Tab) 2,400 mg PO TIDWM [facility] Last Admin: 02/12/21 08:41 Dose: Not Given Documented by: Sodium Chloride (Sodium Chloride 0.9% 10 Ml Flush Syringe) 10 ml IV BID [facility] Last Admin: 02/12/21 05:38 Dose: Not Given Documented by: Sodium Chloride (Sodium Chloride 0.9% 10 Ml Flush Syringe) 10 ml IV PRN PRN PRN Reason: LINE FLUSH Thiamine HCl (Thiamine 100 Mg Tab) 100 mg PO DAILY [facility] Reviewed/updated patient's home and current medications Review of Systems - Review of Systems ROS unobtainable: due to mental status Exam - Constitutional Vital Signs: Temp Pulse Resp BP Pulse Ox 97.1 F L 94 H 18 128/64 94 02/12/21 08:00 02/12/21 08:01 02/12/21 08:00 02/12/21 08:00 02/12/21 08:01 General appearance: no acute distress - Respiratory Respiratory effort: normal Respiratory: bilateral: CTA - Cardiovascular Rhythm: regular Heart Sounds: Present: S1 & S2 Extremities: abnormal (lower extremity amputation) - Gastrointestinal General gastrointestinal: Present: soft, non-tender, non-distended Rectal Exam: stool dark - Neurologic Neurological: disoriented - Labs CBC & Chem 7: 02/12/21 09:16 02/11/21 16:31 Lab Results: Laboratory Results - last 24 hr 02/11/21 02/11/21 02/11/21 16:31 16:31 16:31 WBC 7.2 RBC 2.42 L Hgb 6.5 L Hct 20.0 L MCV 82 L MCH 27 L MCHC 33 RDW 16.3 H Plt Count 361 Lymph % (Auto) 14.2 Harrison % (Auto) 9.4 H Eos % (Auto) 2.9 Baso % (Auto) 0.4 Lymph # (Auto) 1.0 L Harrison # (Auto) 0.7 Eos # (Auto) 0.2 Baso # (Auto) 0.0 Seg Neutrophils % 73.1 H Seg Neutrophils # 5.3 Sodium 135 L Potassium 3.6 Chloride 94.7 L Carbon Dioxide 22 Anion Gap 22 BUN 24 H Creatinine 4.9 H Estimated GFR 15 BUN/Creatinine Ratio 5 Glucose 195 H Calcium 9.0 Total Bilirubin < 0.20 AST 7 ALT < 5 L Alkaline Phosphatase 149 H Total Creatine Kinase 83 Total Protein 6.0 L Albumin 3.4 L Albumin/Globulin Ratio 1.3 TSH Blood Type Antibody Screen Crossmatch 02/11/21 02/11/21 02/12/21 16:31 17:50 09:16 WBC 7.7 RBC 3.21 L Hgb 8.5 L Hct 26.1 L D MCV 82 L MCH 27 L MCHC 33 RDW 15.6 H Plt Count 337 Lymph % (Auto) 15.7 Harrison % (Auto) 7.5 H Eos % (Auto) 3.5 Baso % (Auto) 1.2 Lymph # (Auto) 1.2 Harrison # (Auto) 0.6 Eos # (Auto) 0.3 Baso # (Auto) 0.1 Seg Neutrophils % 72.1 H Seg Neutrophils # 5.5 Sodium Potassium Chloride Carbon Dioxide Anion Gap BUN Creatinine Estimated GFR BUN/Creatinine Ratio Glucose Calcium Total Bilirubin AST ALT Alkaline Phosphatase Total Creatine Kinase Total Protein Albumin Albumin/Globulin Ratio TSH 0.929 Blood Type B POSITIVE Antibody Screen Negative Crossmatch See Detail Assessment and Plan 1. Anemia with dark stools - has chronic anemia, on iron which could be contributing to dark stools, had egd/colonoscopy in September with cecal avm that was tx with APC. will plan for conservative management from gi stand point and see how labs respond to blood and clinical course. if H/H responds appropri ately without further signs of bleeding, will hold off on endoscopy especially given recent procedures. -okay to start clears from gi stand point, cont ppi
[2021-02-12] MEDS ORDERED: amLODIPine 5 MG TAB PO SCH (10:00)
--- NOTE | 2021-02-12 10:16 | Electrocardiograph Report ---
[facility] Test Date: 2021-02-11 Test Time: 17:21:57 Pat Name: CAROLE BRANCH Department: Room: A452 1 Gender: M Skin Therapist: MICHOACANO : 1960 Requested By: SAHRA ULLOA Order Number: [id number] Reading MD: Pedrito Ching Measurements Intervals [place] Rate: 81 P: 45 DE: 193 QRS: -34 QRSD: 113 T: 131 QT: 406 QTc: 470 Interpretive Statements Pacemaker spikes or artifacts Sinus rhythm LVH with secondary repolarization abnormality Anterior ST elevation, probably due to LVH No previous ECG available for comparison Electronically Signed On 02-12-2021 10:15:56 EDT by Pedrito Ching
[2021-02-12 10:38] LABS: Albumin 3.3 g/dL (3.9-5); Blood Urea Nitrogen 35 mg/dL (9-20); Calcium 9.5 mg/dL (8.4-10.2); Hemolysis Index 9
[2021-02-12 10:41] LABS: Alanine Aminotransferase < 5 units/L (7-56); BUN/Creatinine Ratio 6
[2021-02-12] MEDS ORDERED: EPOETIN ALFA-EPBX 10,000 UNIT/1 ML VIAL SUB-Q PRN (11:00)
[2021-02-12] MEDS: DIVALPROEX ER 250 MG TAB PO SCH (12:06)
[2021-02-12] MEDS: CINACALCET 30 MG TAB PO SCH (12:07)
[2021-02-12] MEDS: levETIRAcetam 500 MG/5 ML ORAL LIQD PO SCH ×2 (12:07→22:32)
[2021-02-12] MEDS: THIAMINE 100 MG TAB PO SCH (12:07)
[2021-02-12] MEDS: FOLIC ACID 1 MG TAB PO SCH (12:07)
[2021-02-12] MEDS: SERTRALINE 50 MG TAB PO SCH (12:24)
[2021-02-12] MEDS ORDERED: SODIUM CHLORIDE 0.9% 100 ML IV PRN (22:04)
[2021-02-12] MEDS ORDERED: HEPARIN 10,000 UNITS/10 ML VIAL IV PRN (22:04)
[2021-02-13 06:26] LABS: Basophils % (Auto) 0.3 % (0.0-1.8); Eosinophils # (Auto) 0.3 K/mm3 (0.0-0.4); Eosinophils % (Auto) 3.3 % (0.0-4.3); Hematocrit 25.6 % (35.5-45.6); Hemoglobin 8.2 gm/dl (11.8-15.2); Lymphocytes # (Auto) 1.3 K/mm3 (1.2-5.4); Lymphocytes % (Auto) 16.5 % (13.4-35.0); Mean Corpuscular HGB Conc 32 % (32-34); Mean Corpuscular Volume 82 fl (84-94); Monocytes # (Auto) 0.8 K/mm3 (0.0-0.8); Monocytes % (Auto) 9.9 % (0.0-7.3); Platelet Count 319 K/mm3 (140-440); Red Blood Count 3.11 M/mm3 (3.65-5.03); Red Cell Distribution Width 15.8 % (13.2-15.2)
[2021-02-13 06:41] LABS: Calcium 9.4 mg/dL (8.4-10.2)
--- NOTE | 2021-02-13 09:04 | Progress Note ---
Assessment and Plan 1. ESRD: Patient is on maintenance hemodialysis three times a week, TTS schedule. Last outpatient hemodialysis 02/11. Hemodialysis: 02/13. 2. FEN: Monitor. 3. Anemia: S/p PRBC. Repeat Hb 8.5. Epogen with HD. Monitor. 4. GI bleed: Seen by GI. 5. Hyperparathyroidism: Cinacalcet. 6. PVD: S/p b/l LE amputation. 7. DM type 2. 8. Seizure disorder. 9. Hypertension: Adjust meds as needed. Subjective: Patient seen and examined at the bedside. Examination: General appearance: well-developed, appears stated age, emaciated HEENT: ATNC, JOSÉ ANTONIO Neck: trachea midline Respiratory: Clear to Auscultation Heart: regular, S1S2, no murmur Abdomen: soft, normoactive bowel sounds, not tender, not distended Integumentary: no obvious rash Neurologic: alert, able to move extremities Ext: no edema, R AKA, L BKA Hemodialysis access: R FA AVF Subjective Date of service: 02/13/21 Objective - Vital Signs Vital signs: Vital Signs - 12hr 02/12/21 02/13/21 02/13/21 22:33 00:06 03:40 Temperature 98.7 F 99.0 F Pulse Rate 80 82 79 Respiratory 18 18 Rate Blood Pressure 117/60 137/65 O2 Sat by Pulse 97 97 Oximetry - Lab 02/13/21 05:57 02/13/21 05:57 Most recent lab results Calcium 9.4 mg/dL (8.4-10.2) 02/13/21 05:57 Medications & Allergies - Medications Allergies/Adverse Reactions: Allergies Penicillins Allergy (Verified 07/11/19 17:31) Unknown Home Medications: Home Medications Medication Instructions Recorded Confirmed Last Taken Type diphenhydrAMINE [Benadryl CAP] 25 mg PO Q6HR PRN 12/27/16 02/13/21 05/24/19 History Donepezil HCl 10 mg PO QHS 11/10/18 02/13/21 05/25/19 History Sevelamer Carbonate 2,400 mg PO TIDWM 11/10/18 02/13/21 05/25/19 History Epoetin Darvin 10,000 Unit [Procrit] 10,000 unit IJ PRN 07/11/19 02/13/21 Unknown History ALBUTEROL NEB's [Proventil 0.083% 2.5 mg IH Q4HRT PRN #30 nebu 11/07/19 02/13/21 Unknown Rx NEBS] Ascorbic Acid [Vitamin C] 500 mg PO BID #60 tablet 11/07/19 02/13/21 Unknown Rx AtorvaSTATin [Lipitor] 40 mg PO QHS #30 tablet 11/07/19 02/13/21 Unknown Rx Ferrous Sulfate [Feosol 325 MG tab] 325 mg PO BID #60 tablet 11/07/19 02/13/21 Unknown Rx Folic Acid [Folvite] 1 mg PO DAILY #30 tablet 11/07/19 02/13/21 Unknown Rx Thiamine [Vitamin B-1] 100 mg PO DAILY #30 tablet 11/07/19 02/13/21 Unknown Rx bisacodyL [Dulcolax tab] 10 mg PO QDAY PRN #30 tablet 11/07/19 02/13/21 Unknown Rx levETIRAcetam [Keppra TAB] 250 mg PO BID #30 tablet 11/07/19 02/13/21 05/25/19 Rx Aspirin [Aspirin BABY CHEW TAB] 81 mg PO QDAY #30 tab.chew 09/17/20 02/13/21 Unknown Rx Insulin Lispro [Humalog] 5 unit SUB-Q AC vial 09/17/20 02/13/21 Unknown Rx Pantoprazole [Protonix TAB] 40 mg PO BID #15 tablet 09/17/20 02/13/21 Unknown Rx amLODIPine 5 mg PO QDAY tablet 09/17/20 02/13/21 Unknown Rx Cinacalcet [Sensipar] 30 mg PO QDAY 10/05/20 02/13/21 Unknown History Divalproex ER [Depakote ER] 250 mg PO DAILY 10/05/20 02/13/21 Unknown History Midodrine [Proamatine] 5 mg PO TID PRN 10/05/20 02/13/21 Unknown History Ondansetron HCl [Zofran] 4 mg PO PRN 10/05/20 02/13/21 Unknown History Sertraline [Zoloft] 50 mg PO QDAY 10/05/20 02/13/21 Unknown History carvediloL [Coreg] 6.25 mg PO BID 10/05/20 02/13/21 Unknown History polyethylene glycoL 3350 [Miralax 17 gm PO BID PRN 10/05/20 02/13/21 Unknown His tory 3350] Active Medications: Generic Name Dose Route Start Last Admin Trade Name Freq PRN Reason Stop Dose Admin Acetaminophen 650 mg 02/11/21 20:23 Acetaminophen 325 Mg Tab PO Q4H PRN Pain MILD(1-3)/Fever >100.5/DINERO Albuterol 2.5 mg 02/11/21 20:23 Albuterol 2.5 Mg/3 Ml Nebu IH Q4HRT PRN Shortness Of Breath Amlodipine Besylate 5 mg 02/12/21 10:00 02/12/21 12:09 Amlodipine 5 Mg Tab PO 5 mg QDAY LUZ Administration Ascorbic Acid 500 mg 02/11/21 22:00 02/12/21 22:31 Ascorbic Acid 500 Mg Tab PO 500 mg BID LUZ Administration Atorvastatin Calcium 40 mg 02/11/21 22:00 02/12/21 22:34 Atorvastatin 40 Mg Tab PO 40 mg QHS LUZ Administration Bisacodyl 10 mg 02/11/21 20:26 Bisacodyl 5 Mg Tab PO QDAY PRN Constipation Carvedilol 6.25 mg 02/11/21 22:00 02/12/21 22:33 Carvedilol 6.25 Mg Tab PO 6.25 mg BID LUZ Administration Cinacalcet 30 mg 02/12/21 10:00 02/12/21 12:07 Cinacalcet 30 Mg Tab PO 30 mg QDAY LUZ Administration Diphenhydramine HCl 25 mg 02/11/21 20:26 Diphenhydramine 25 Mg Cap PO Q6HR PRN Itching Divalproex Sodium 250 mg 02/12/21 10:00 02/12/21 12:06 Divalproex Er 250 Mg Tab PO 250 mg DAILY ULZ Administration Donepezil HCl 10 mg 02/11/21 22:00 02/12/21 22:34 Donepezil 10 Mg Tab PO 10 mg QHS LUZ Administration Ferrous Sulfate 325 mg 02/11/21 22:00 02/12/21 22:30 Ferrous Sulfate 325 Mg Tab PO 325 mg BID LUZ Administration Folic Acid 1 mg 02/12/21 10:00 02/12/21 12:07 Folic Acid 1 Mg Tab PO 1 mg DAILY LUZ Administration Heparin Sodium (Porcine) 3,000 unit 02/12/21 22:04 Heparin 10,000 Units/10 Ml Vial IV CORBY PRN hemodialysis Sodium Chloride 100 mls @ 999 mls/hr 02/12/21 22:04 Nacl 0.9% IV CORBY PRN Hypotension Levetiracetam 500 mg 02/12/21 10:00 02/12/21 22:32 Levetiracetam 500 Mg/5 Ml Oral Liqd PO 500 mg BID LUZ Administration Ondansetron HCl 4 mg 02/11/21 20:23 Ondansetron 4 Mg/2 Ml Inj IV Q8H PRN Nausea And Vomiting Pantoprazole Sodium 40 mg 02/11/21 22:00 02/12/21 22:30 Pantoprazole 40 Mg Inj IV 40 mg BID LUZ Administration Polyethylene Glycol 17 gm 02/11/21 20:26 Polyethylene Glycol 3350 17 Gm Powder PO BID PRN Constipation Sertraline HCl 50 mg 02/12/21 10:00 02/12/21 12:24 Sertraline 50 Mg Tab PO 50 mg QDAY LUZ Administration Sevelamer Carbonate 2,400 mg 02/12/21 08:00 02/12/21 17:25 Sevelamer Carbonate 800 Mg Tab PO 2,400 mg TIDWM LUZ Administration Sodium Chloride 10 ml 02/11/21 22:00 02/12/21 22:30 Sodium Chloride 0.9% 10 Ml Flush Syringe IV 10 ml BID LUZ Administration Sodium Chloride 10 ml 02/11/21 20:23 Sodium Chloride 0.9% 10 Ml Flush Syringe IV PRN PRN LINE FLUSH Thiamine HCl 100 mg 02/12/21 10:00 02/12/21 12:07 Thiamine 100 Mg Tab PO 100 mg DAILY LUZ Administration
[2021-02-13] MEDS: SEVELAMER CARBONATE 800 MG TAB PO SCH ×2 (09:13→13:13)
--- NOTE | 2021-02-13 09:51 | Progress Note ---
Assessment and Plan Assessment and plan: (1) GI bleed Current Visit: Yes Status: Acute Plan to address problem: GI team consulted, packed red blood cell transfusion, PPI therapy, CBC, repeat CBC in a.m., (2) Acute encephalopathy Current Visit: No Status: Acute Plan to address problem: Supportive care, seizure precautions, aspiration precautions, fall precautions. (3) End stage renal disease Current Visit: No Status: Chronic Plan to address problem: Nephrology team consulted in ED, dialysis as per renal team. (4) Hyperlipidemia Current Visit: No Status: Chronic Qualifiers: Hyperlipidemia type: mixed hyperlipidemia Qualified Code(s): E78.2 - Mixed hyperlipidemia Plan to address problem: Supportive care, low-cholesterol diet, continue medical management (5) Hypertension Current Visit: No Status: Chronic Qualifiers: Hypertension type: essential hypertension Qualified Code(s): I10 - Essential (primary) hypertension Plan to address problem: Monitor blood pressure every 6, continue medical management (6) Seizure disorder Current Visit: No Status: Chronic Plan to address problem: Seizure precautions, continue antiepileptic therapy, (7) DVT prophylaxis Current Visit: Yes Status: Acute Plan to address problem: SCD to bilateral lower extremities while in bed, hold anticoagulation for now due to GI bleed. (8) Advance care planning Current Visit: Yes Status: Acute Plan to address problem: Disease education conducted, care plan discussed, diagnosis discussed, prognosis discussed, patient is full code, +30 minutes. 02/12/2021 -Patient was given a unit of blood posttransfusion hemoglobin was 8.5 -GI saw the patient and recommend no further work-up. Patient has previous EGD and showed AVM. GI recommend conservative management. We will not scope unless you have active bleeding. -Nephrology is consulted for regular hemodialysis -Patient is on Keppra 500 mg p.o. twice daily, I discontinued tramadol because it can increase seizure -Patient is hypertensive and his midodrine was continued, I discontinued midodrine. -Resume home medications. -Patient started on mechanical soft diet. 02/13/21; H&H is stable. No further GI bleed. Patient can be discharged after dialysis. History Interval history: Patient was seen and evaluated this morning Patient was alert, oriented to self and place. Not oriented to time Said no GI bleed overnight Hospitalist Physical - Physical exam Narrative exam: Not in cardiopulmonary distress. The patient appeared well nourished and normally developed. Vital signs as documented. Head exam is unremarkable. No scleral icterus . Neck is without jugular venous distension, thyromegaly, or carotid bruits. Lungs are clear to auscultation. Cardiac exam reveals regular rate and Rhythm. Abdominal exam reveals normal bowel sounds, nontender, no organomegaly. Extremities right AKA, left BKA FEDERAL AGENT: Alert and oriented 2. - Constitutional Vitals: Temp Pulse Resp BP Pulse Ox 99.0 F 79 18 137/65 97 02/13/21 03:40 02/13/21 03:40 02/13/21 03:40 02/13/21 03:40 02/13/21 03:40 General appearance: Present: mild distress Results - Labs CBC & Chem 7: 02/13/21 05:57 02/13/21 05:57 Labs: Laboratory Last Values WBC 7.9 K/mm3 (4.5-11.0) 02/13/21 05:57 RBC 3.11 M/mm3 (3.65-5.03) L 02/13/21 05:57 Hgb 8.2 gm/dl (11.8-15.2) L 02/13/21 05:57 Hct 25.6 % (35.5-45.6) L 02/13/21 05:57 MCV 82 fl (84-94) L 02/13/21 05:57 MCH 26 pg (28-32) L 02/13/21 05:57 MCHC 32 % (32-34) 02/13/21 05:57 RDW 15.8 % (13.2-15.2) H 02/13/21 05:57 Plt Count 319 K/mm3 (140-440) 02/13/21 05:57 Lymph % (Auto) 16.5 % (13.4-35.0) 02/13/21 05:57 [place] % (Auto) 9.9 % (0.0-7.3) H 02/13/21 05:57 Eos % (Auto) 3.3 % (0.0-4.3) 02/13/21 05:57 Baso % (Auto) 0.3 % (0.0-1.8) 02/13/21 05:57 Lymph # (Auto) 1.3 K/mm3 (1.2-5.4) 02/13/21 05:57 [place] # (Auto) 0.8 K/mm3 (0.0-0.8) 02/13/21 05:57 Eos # (Auto) 0.3 K/mm3 (0.0-0.4) 02/13/21 05:57 Baso # (Auto) 0.0 K/mm3 (0.0-0.1) 02/13/21 05:57 Seg Neutrophils % 70.0 % (40.0-70.0) 02/13/21 05:57 Seg Neutrophils # 5.5 K/mm3 (1.8-7.7) 02/13/21 05:57 Sodium 136 mmol/L (137-145) L 02/13/21 05:57 Potassium 4.4 mmol/L (3.6-5.0) 02/13/21 05:57 Chloride 93.7 mmol/L (98-107) L 02/13/21 05:57 Carbon Dioxide 26 mmol/L (22-30) 02/13/21 05:57 Anion Gap 21 mmol/L 02/13/21 05:57 BUN 44 mg/dL (9-20) H 02/13/21 05:57 Creatinine 7.2 mg/dL (0.8-1.3) H 02/13/21 05:57 Estimated GFR 9 ml/min 02/13/21 05:57 BUN/Creatinine Ratio 6 % 02/13/21 05:57 Glucose 344 mg/dL (75-100) H 02/13/21 05:57 Calcium 9.4 mg/dL (8.4-10.2) 02/13/21 05:57 Total Bilirubin 0.50 mg/dL (0.1-1.2) 02/12/21 09:16 AST 8 units/L (5-40) 02/12/21 09:16 ALT < 5 units/L (7-56) L 02/12/21 09:16 Alkaline Phosphatase 151 units/L (35-129) H 02/12/21 09:16 Total Creatine Kinase 83 units/L (55-170) 02/11/21 16:31 Total Protein 6.8 g/dL (6.3-8.2) 02/12/21 09:16 Albumin 3.3 g/dL (3.9-5) L 02/12/21 09:16 Albumin/Globulin Ratio 0.9 % 02/12/21 09:16 TSH 0.929 mlU/mL (0.270-4.200) 02/11/21 16:31 Coronavirus (PCR) Negative (Negative) 02/12/21 Unknown Blood Type B POSITIVE 02/11/21 17:50 Antibody Screen Negative 02/11/21 17:50 Crossmatch See Detail 02/11/21 17:50 Snider/IV: Voiding Method Diaper Active Medications - Current Medications Current Medications: Generic Name Dose Route Start Last Admin Trade Name Freq PRN Reason Stop Dose Admin Acetaminophen 650 mg 02/11/21 20:23 Acetaminophen 325 Mg Tab PO Q4H PRN Pain MILD(1-3)/Fever >100.5/DINERO Albuterol 2.5 mg 02/11/21 20:23 Albuterol 2.5 Mg/3 Ml Nebu IH Q4HRT PRN Shortness Of Breath Amlodipine Besylate 5 mg 02/12/21 10:00 02/12/21 12:09 Amlodipine 5 Mg Tab PO 5 mg QDAY LUZ Administration Ascorbic Acid 500 mg 02/11/21 22:00 02/12/21 22:31 Ascorbic Acid 500 Mg Tab PO 500 mg BID LUZ Administration Atorvastatin Calcium 40 mg 02/11/21 22:00 02/12/21 22:34 Atorvastatin 40 Mg Tab PO 40 mg QHS LUZ Administration Bisacodyl 10 mg 02/11/21 20:26 Bisacodyl 5 Mg Tab PO QDAY PRN Constipation Carvedilol 6.25 mg 02/11/21 22:00 02/12/21 22:33 Carvedilol 6.25 Mg Tab PO 6.25 mg BID LUZ Administration Cinacalcet 30 mg 02/12/21 10:00 02/12/21 12:07 Cinacalcet 30 Mg Tab PO 30 mg QDAY LUZ Administration Diphenhydramine HCl 25 mg 02/11/21 20:26 Diphenhydramine 25 Mg Cap PO Q6HR PRN Itching Divalproex Sodium 250 mg 02/12/21 10:00 02/12/21 12:06 Divalproex Er 250 Mg Tab PO 250 mg DAILY LUZ Administration Donepezil HCl 10 mg 02/11/21 22:00 02/12/21 22:34 Donepezil 10 Mg Tab PO 10 mg QHS LUZ Administration Ferrous Sulfate 325 mg 02/11/21 22:00 02/12/21 22:30 Ferrous Sulfate 325 Mg Tab PO 325 mg BID LUZ Administration Folic Acid 1 mg 02/12/21 10:00 02/12/21 12:07 Folic Acid 1 Mg Tab PO 1 mg DAILY LUZ Administration Heparin Sodium (Porcine) 3,000 unit 02/12/21 22:04 02/13/21 09:40 Heparin 10,000 Units/10 Ml Vial IV 3,000 unit CORBY PRN Administration hemodialysis Sodium Chloride 100 mls @ 999 mls/hr 02/12/21 22:04 Nacl 0.9% IV CORBY PRN Hypotension Levetiracetam 500 mg 02/12/21 10:00 02/12/21 22:32 Levetiracetam 500 Mg/5 Ml Oral Liqd PO 500 mg BID LUZ Administration Ondansetron HCl 4 mg 02/11/21 20:23 Ondansetron 4 Mg/2 Ml Inj IV Q8H PRN Nausea And Vomiting Pantoprazole Sodium 40 mg 02/13/21 10:00 Pantoprazole 40 Mg Tab PO BIDAC LUZ Polyethylene Glycol 17 gm 02/11/21 20:26 Polyethylene Glycol 3350 17 Gm Powder PO BID PRN Constipation Sertraline HCl 50 mg 02/12/21 10:00 02/12/21 12:24 Sertraline 50 Mg Tab PO 50 mg QDAY LUZ Administration Sevelamer Carbonate 2,400 mg 02/12/21 08:00 02/12/21 17:25 Sevelamer Carbonate 800 Mg Tab PO 2,400 mg TIDWM LUZ Administration Sodium Chloride 10 ml 02/11/21 22:00 02/12/21 22:30 Sodium Chloride 0.9% 10 Ml Flush Syringe IV 10 ml BID LUZ Administration Sodium Chloride 10 ml 02/11/21 20:23 Sodium Chloride 0.9% 10 Ml Flush Syringe IV PRN PRN LINE FLUSH Thiamine HCl 100 mg 02/12/21 10:00 02/12/21 12:07 Thiamine 100 Mg Tab PO 100 mg DAILY LUZ Administration Nutrition/Malnutrition Assess - Dietary Evaluation Nutrition/Malnutrition Findings: Nutrition Notes Start: 02/12/21 12:04 Freq: Status: Active Protocol: Document 02/12/21 12:05 RYLIE (Rec: 02/12/21 12:10 RYLIE [id number]) Nutrition Notes Need for 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 Pt did not wake at time of visit. Mild muscle wasting noted. Pt ate 35% of breakfast. Minimum of two criteria No Muscle Mass Mild Depletion (non-severe) Is patient on ventilator? No Is Patient Ambulatory and/or Out of Bed No REE-([facility]-confined to bed) 3944.316 Calculation Used for Recommendations [facility] Additional Notes Protein: >1.2g/kg (>64g) Fluid: 1 ml/kcal or per MD Nutrition Intervention Add Supplement/Snack (indicate name/kcal Nepro daily /protein ) Provides kCal: 425 Provides Protein (gm) 19 Goal #1 Meet at least 75% of protein and energy needs via PO and ONS intakes Follow-Up By: 02/14/21 Additional Comments FU for assessment
[2021-02-13] MEDS ORDERED: PANTOPRAZOLE 40 MG TAB PO SCH (10:00)
[2021-02-13 10:42] LABS: Hepatitis B Surface Antigen Non-Reactive (Negative); Hepatitis C Virus Antibody Non-Reactive (NonReactive)
--- NOTE | 2021-02-13 12:48 | Discharge Summary ---
Providers - Providers Date of Admission: 02/11/21 20:23 Date of discharge: 02/13/21 Attending physician: MARC LINARES MD 02/11/21 19:59 Consult to Physician [CONS] Routine Comment: Dr. Rizzo spoke with Dr. 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 Patient is confused and lethargic at the time of my exam and is unable to provide history. Patient history provided by EMS staff, ED staff, as well as nursing home facility staff. As per staff the patient underwent his routine hemodialysis session today. Patient experienced a seizure shortly after his dialysis session was concluded and again upon return to the nursing home facility. EMS was notified and upon arrival the patient was found to be in distress and subsequent transported to [facility] for further care and evaluation of the aforementioned symptoms. The patient was seen and evaluated in the emergency department. All lab and imaging studies reviewed. The patient was found to have melanotic stool complicated by blood loss anemia which is consistent with GI bleed. GI team consulted in ED. Patient has diminished cognition but has a positive gag reflex and is able to protect his airway without difficulty. Pt admitted to telemetry for medical management and medical stabilization due to increased risk of decompensation. No reports of fever, chills, CP, Palpitations, productive cough, skin rash, trauma, syncope, or recent ill contacts, or known exposure to COVID-19. No further history obtainable. Prior admission on 10/04/2020 reviewed. All listed medication reconciled at time of admission. Advanced care planning conducted in ED. Hospital course 1) GI bleed Current Visit: Yes Status: Acute Plan to address problem: GI team consulted, packed red blood cell transfusion, PPI therapy, CBC, repeat C BC in a.m., (2) Acute encephalopathy Current Visit: No Status: Acute Plan to address problem: Supportive care, seizure precautions, aspiration precautions, fall precautions. (3) End stage renal disease Current Visit: No Status: Chronic Plan to address problem: Nephrology team consulted in ED, dialysis as per renal team. (4) Hyperlipidemia Current Visit: No Status: Chronic Qualifiers: Hyperlipidemia type: mixed hyperlipidemia Qualified Code(s): E78.2 - Mixed hyperlipidemia Plan to address problem: Supportive care, low-cholesterol diet, continue medical management (5) Hypertension Current Visit: No Status: Chronic Qualifiers: Hypertension type: essential hypertension Qualified Code(s): I10 - Essential (primary) hypertension Plan to address problem: Monitor blood pressure every 6, continue medical management (6) Seizure disorder Current Visit: No Status: Chronic Plan to address problem: Seizure precautions, continue antiepileptic therapy, (7) DVT prophylaxis Current Visit: Yes Status: Acute Plan to address problem: SCD to bilateral lower extremities while in bed, hold anticoagulation for now due to GI bleed. (8) Advance care planning Current Visit: Yes Status: Acute Plan to address problem: Disease education conducted, care plan discussed, diagnosis discussed, prognosis discussed, patient is full code, +30 minutes. 02/12/2021 -Patient was given a unit of blood posttransfusion hemoglobin was 8.5 -GI saw the patient and recommend no further work-up. Patient has previous EGD and showed AVM. GI recommend conservative management. We will not scope unless you have active bleeding. -Nephrology is consulted for regular hemodialysis -Patient is on Keppra 500 mg p.o. twice daily, I discontinued tramadol because it can increase seizure -Patient is hypertensive and his midodrine was continued, I discontinued midodrine. -Resume home medications. -Patient started on mechanical soft diet. 02/13/21; H&H is stable. No further GI bleed. Patient had dialysis in the morning and patient can go back to retirement. Disposition: [id number] SNF [facility] CERT Final Discharge Diagnosis (Prints w/discharge instructions): Anemia. GI bleed Time spent for discharge: 35 minutes - Discharge Diagnoses (1) Anemia requiring transfusions Status: Acute (2) GI bleed Status: Acute (3) Melena Status: Acute (4) End stage renal failure on dialysis Status: Acute Core Measure Documentation - Palliative Care Palliative Care/ Comfort Measures: Not Applicable - Core Measures Any of the following diagnoses?: none Exam - Physical Exam Narrative exam: Not in cardiopulmonary distress. The patient appeared well nourished and normally developed. Vital signs as documented. Head exam is unremarkable. No scleral icterus . Neck is without jugular venous distension, thyromegaly, or carotid bruits. Lungs are clear to auscultation. Cardiac exam reveals regular rate and Rhythm. Abdominal exam reveals normal bowel sounds, nontender, no organomegaly. Extremities right AKA, left BKA CALF SKINNER: Alert and oriented 2. - Constitutional Vitals: Temp Pulse Resp BP Pulse Ox 98.2 F 81 20 118/55 97 02/13/21 11:14 02/13/21 11:45 02/13/21 11:14 02/13/21 11:45 02/13/21 03:40 Plan Activity: advance as tolerated Weight Bearing Status: Weight Bear as Tolerated Diet: advance as tolerated Follow up with: PRIMARY CAREMD [Primary Care Provider] - 3-5 Days
[2021-02-13 13:05] VITALS: BP 122/68
[2021-02-13] MEDS: THIAMINE 100 MG TAB PO SCH (13:12)
[2021-02-13] MEDS: SERTRALINE 50 MG TAB PO SCH (13:12)
[2021-02-13] MEDS: DIVALPROEX ER 250 MG TAB PO SCH (13:12)
[2021-02-13] MEDS: levETIRAcetam 500 MG/5 ML ORAL LIQD PO SCH (13:12)
[2021-02-13] MEDS: FOLIC ACID 1 MG TAB PO SCH (13:12)
[2021-02-13] MEDS: CINACALCET 30 MG TAB PO SCH (13:12)
[2021-02-13] MEDS: FERROUS SULFATE 325 MG TAB PO SCH (13:12)
[2021-02-13] MEDS: ASCORBIC ACID 500 MG TAB PO SCH (13:12)
[2021-02-13] MEDS: carvediloL 6.25 MG TAB PO SCH (13:19)
--- NOTE | 2021-02-13 16:42 | Gastroenterology Progress Note ---
Assessment and Plan anemia/dark stools - H/H stable/responded appropriately to blood transfusions. no signs of gi bleeding since admission. will sign off, please call as needed Subjective Date of service: 02/13/21 Principal diagnosis: anemia Interval history: no overt bleeding since admission. tolerating po Objective - Exam Narrative Exam: Gen: nad abd: soft, nt, nd - Constitutional Vitals: Temp Pulse Resp BP Pulse Ox 98.8 F 79 20 122/68 97 02/13/21 13:03 02/13/21 13:03 02/13/21 13:03 02/13/21 13:03 02/13/21 03:40 - Labs CBC & Chem 7: 02/13/21 05:57 02/13/21 05:57 Labs: Laboratory Results - last 24 hr 02/13/21 02/13/21 02/13/21 05:57 05:57 09:20 WBC 7.9 RBC 3.11 L Hgb 8.2 L Hct 25.6 L MCV 82 L MCH 26 L MCHC 32 RDW 15.8 H Plt Count 319 Lymph % (Auto) 16.5 [place] % (Auto) 9.9 H Eos % (Auto) 3.3 Baso % (Auto) 0.3 Lymph # (Auto) 1.3 [place] # (Auto) 0.8 Eos # (Auto) 0.3 Baso # (Auto) 0.0 Seg Neutrophils % 70.0 Seg Neutrophils # 5.5 Sodium 136 L Potassium 4.4 Chloride 93.7 L Carbon Dioxide 26 Anion Gap 21 BUN 44 H Creatinine 7.2 H Estimated GFR 9 BUN/Creatinine Ratio 6 Glucose 344 H Calcium 9.4 Hepatitis A IgM Ab Non-reactive Hep Bs Antigen Non-reactive Hep B Core IgM Ab Non-reactive Hepatitis C Antibody Non-reactive
== END 2021-02-13 17:00 | DRG 377 ==
LOC: ED 14:32 → 4A 20:23
PROVIDERS: ADMIT Internal Medicine; ATTEND Internal Medicine
PROC: 30233N1 Transfusion of Nonautologous Red Blood Cells into Peripheral Vein, Percutaneous Approach (ICD-10-PCS; principal; 2021-02-11)
PROC: 5A1D70Z Performance of Urinary Filtration, Intermittent, Less than 6 Hours Per Day (ICD-10-PCS; 2021-02-13)
DX: K92.2 Gastrointestinal hemorrhage, unspecified (principal); N18.6 End stage renal disease; G93.40 Encephalopathy, unspecified; D64.9 Anemia, unspecified; E11.22 Type 2 diabetes mellitus with diabetic chronic kidney disease; R53.81 Other malaise; G40.909 Epilepsy, unspecified, not intractable, without status epilepticus; K21.9 Gastro-esophageal reflux disease without esophagitis; F02.80 Dementia in other diseases classified elsewhere, unspecified severity, without behavioral disturbance, psychotic disturbance, mood disturbance, and anxiety; F17.200 Nicotine dependence, unspecified, uncomplicated; J45.909 Unspecified asthma, uncomplicated; E21.3 Hyperparathyroidism, unspecified; Z20.822 Contact with and (suspected) exposure to COVID-19; E11.51 Type 2 diabetes mellitus with diabetic peripheral angiopathy without gangrene; E78.2 Mixed hyperlipidemia; Z82.49 Family history of ischemic heart disease and other diseases of the circulatory system; Z83.3 Family history of diabetes mellitus; Z88.0 Allergy status to penicillin; Z99.2 Dependence on renal dialysis; Z79.4 Long term (current) use of insulin; Z79.899 Other long term (current) drug therapy; Z89.512 Acquired absence of left leg below knee; Z87.442 Personal history of urinary calculi
CPT/HCPCS: 36415; 70450; 71045; 80048; 80053; 80074; 82550; 84443; 85025; 86850; 86900; 86901; 86920; 93005; 96374; 96375; G0378; A9270-GY; C9113; J0885; J1644; J1953; J2060; J7040; P9016; U0003